=== PATIENT | male | born 1955 | race Caucasian/White ===

== ENCOUNTER 2016-07-14 22:05 | Inpatient (IN) | payer MEDICAID, OTHER ==
[~2016-07-14] VITALS: Ht 180.3 cm; Wt 68.4 kg
[2016-07-14 21:59] VITALS: BP 143/84
[2016-07-14] MEDS ORDERED: ANTACID SUSP 30 ML UDC (MYLANTA) PO PRN (23:15)
[2016-07-14] MEDS ORDERED: POLYETHYLENE GLYCOL 17 GM (MIRALAX) PACK PO PRN (23:15)
[2016-07-14] MEDS ORDERED: CALCIUM CARBONATE 500 MG (TUMS) TAB.CHEW PO PRN (23:15)
[2016-07-14] MEDS ORDERED: ONDANSETRON 4 MG (ZOFRAN) ORAL DISSOLVE TAB PO PRN (23:30)
[2016-07-14] MEDS ORDERED: CYCLOBENZAPRINE 10 MG (FLEXERIL) TAB PO PRN (23:30)
[2016-07-14] MEDS ORDERED: TEMAZEPAM 15 MG (RESTORIL) CAP PO PRN (23:30)
[2016-07-14] MEDS ORDERED: oxyCODONE/APAP 5/325MG (PERCOCET 5) TABLET PO PRN (23:30)
[2016-07-14] MEDS ORDERED: ACET/BUTAL/CAFF (FIORICET) TAB PO PRN (23:30)
[2016-07-14] MEDS ORDERED: ALPRAZolam 0.5 MG (XANAX) TAB PO PRN (23:30)
[2016-07-15] MEDS: FERROUS SULF 325 MG (IRON) TAB PO SCH ×3 (06:06→19:02)
[2016-07-15 06:16] VITALS: BP 117/75
[2016-07-15] MEDS: POLYETHYLENE GLYCOL 17 GM (MIRALAX) PACK PO SCH (09:00)
[2016-07-15] MEDS ORDERED: TAMSULOSIN 0.4 MG (FLOMAX) CAP PO ONE (09:00)
[2016-07-15] MEDS: DOCUSATE SODIUM 100 MG (COLACE) CAP PO SCH (09:24)
[2016-07-15] MEDS: CLOPIDOGREL 75 MG (PLAVIX) TABLET PO SCH (09:24)
[2016-07-15] MEDS: OMEGA 3 (FISH OIL) 1000 MG CAP PO SCH (09:25)
[2016-07-15] MEDS: FAMOTIDINE 20 MG (PEPCID) TABLET PO SCH ×2 (09:25→21:18)
[2016-07-15] MEDS: MAGNESIUM OXIDE (MAG-OX)400 MG TAB PO SCH (09:25)
[2016-07-15] MEDS: CEFDINIR 300 MG (OMNICEF) CAP PO SCH ×2 (09:25→21:17)
[2016-07-15] MEDS: GABAPENTIN 300 MG (NEURONTIN) CAP PO SCH ×3 (09:26→21:18)
[2016-07-15] MEDS: CARVEDILOL 6.25 MG (COREG) TAB PO SCH ×2 (09:26→21:18)
[2016-07-15] MEDS: LORATADINE (CLARITIN) 10 MG TAB PO SCH (09:26)
[2016-07-15] MEDS: LACTOBACILLUS Acidoph/Bulgar (LACTINEX/FLORANEX) TAB PO SCH ×2 (09:26→21:18)
[2016-07-15] MEDS ORDERED: ALFUZOSIN HCL 10 MG TAB (UROXATRAL) PO NR (09:38)
--- NOTE | 2016-07-15 12:54 | Physical Therapy Evaluation ---
PT Evaluation-General Medical Diagnosis Admission Date Jul 14, 2016 at 22:05 Medical Diagnosis: UTI Onset Date: Jul 06, 2016 Therapy Diagnosis Therapy Diagnosis: impaired mobility, weakness, balance, endurance Height/Weight Height (Feet): 5 Height (Inches): 11.00 Weight (Pounds): 151 Weight (Ounces): 8.0 Precautions Precautions/Isolations: Fall Prevention, Standard Precautions Referral Physician: Jorge Luis Reason for Referral: Evaluation/Treatment Medical History Pertinent Medical History: CVA, GERD Additional Medical History sepsis, UTI, hyponatremia, history of LV thrombus, acute kidney injury, leukopenia, thrombocytopenia, chronic anemia, cardiac artery stenosis, hyperlipidemia, BPH Current History admitted initially to hospital with pain in neck and suprapubic region and fever. Was found to have UTI, sepsis. Reviewed History: Yes Social History Patient states that when he discharges from here he will be going to an assisted living facility. He states he has a wheelchair, hemiwalker, and AFO. Prior/Core FIM Prior Level of Function Functional [place] Measure 0=Not Assessed/NA 4=Minimal Assistance 1=Total Assistance 5=Supervision or Setup 2=Maximal Assistance 6=Modified [place] 3=Moderate Assistance 7=Complete [place] Bed Mobility: 6 Transfers (B,C,W/C) (FIM): 6 Gait: 6 PT Evaluation-Current Subjective Patient in bed pre tx, agrees to PT, will need to get dressed and somewhat groomed this morning. Has no complaints of pain. Pt/Family Goals to be independent at home Objective Patient Orientation: Normal For Age ROM/Strength ROM Lower Extremities WNL Strenght Lower Extremities WNL for right lower extremity, left lower extremity 2/5 gross Integumentary/Posture Bowel Incontinence: No Bladder Incontinence: No Neuromuscular (Tone, Coordination, Reflexes) coordination and tone decreased on the left side Sensory Vision: Functional Hearing: Functional Sensation Right Lower Extremit: Intact Sensation Left Lower Extremity: Intact Sensation Lower Extremities Patient has intact light touch sensation but is diminished on the left side, he states his whole left side of body tingles Transfers Functional [place] Measure 0=Not Assessed/NA 4=Minimal Assistance 1=Total Assistance 5=Supervision or Setup 2=Maximal Assistance 6=Modified [place] 3=Moderate Assistance 7=Complete IndependenceIRFPAI Quality Coding Scale 6 Independent with activity with or without an assistive device 5 Patient requires set up or clean up by helper. Patient completes activity by themselves 4 Supervision or touching assist (CGA). [place] provide cues , steadying assist 3 The helper provides less than half the effort to complete the activity 2 The helper provides more than half the effort to complete the activity 1 Dependent. The helper does all the effort to complete an activity 7 Patient refused to complete or attempt activity 9 The patient did not perform the activity before the current illness or injury 88 Not attempted due to Medical conditions or safety concerns Transfers (B, C, W/C) (FIM): 4 Scootin Rollin Roll Left to Right (QC): 4 Supine to/from Sit: 5 Sit to/from Stand: 4 bed t/f WC(FIM only if WC use): 4 Sit to Lying (QC): 4 Lying to Sitting/Side of Bed(Q: 4 Sit to Stand (QC): 4 Chair/Twg-dp-Uhygh Xfer(QC): 4 Car Transfer (QC): 88 Patient performs bed mobility with standby assist, he needs extra time and effort but he did not need any assist. Patient performs a sit to stand and stand pivot transfer with CGA, he needs cues for safety and hand placement. Gait Does the Patient Walk?: Yes Mode of Locomotion: Walk Anticipated Mode of Locomotion: Walk Gait (FIM): 1 Walk 10 feet (QC): 4 Walk 50 ft with 2 Turns(QC): 88 Walk 150 ft (QC): 88 Walking 10ft/uneven surface-QC: 88 Distance: 30' Gait Level of Assist: 4 (CGA) Gait Persons Needed: 1 Gait Assistive Device: Walker Donnie Comments/Gait Description Patient can ambulate 30' with a hemiwalker with CGA. He has uncoordinated movement of the left lower extremity. He cannot ambulate over uneven surfaces at this time. He uses a left AFO and has a steppage gait. Wheelchair Training Does the Pt Use a Wheelchair?: Yes Wheelchair (FIM): 6 Distance: 200' Wheel 50 ft with 2 turns (QC): 6 Wheel 150 ft (QC): 6 Type of Wheelchair: Manual mod I with wheelchair mobility using his right arm and leg Stairs Stairs (FIM): 1 #of Steps: 1 Level of Assist: 4 1 Step (curb) (QC): 3 4 Steps (QC): 88 12 Steps (QC): 88 used a hemiwalker, min assist, cues for safety and foot placement Balance Sitting Static: Normal Sitting Dynamic: Normal Standing Static: Fair Standing Dynamic: Poor Picking up an Object (QC): 88 Assessment/Needs Patient has left hemiparesis, debility, impaired mobility and ambulation. Rehab Potential: Fair PT Short Term Goals Short Term Goals Time Frame: Jul 22, 2016 Transfers (B,C,W/C) (FIM): 5 Gait (FIM): 2 Gait Distance Comment: 70' Gait Level of Assist: 5 Gait Assistive Device: Cane Large Base Quad PT Logistics Specialist Goals Logistics Specialist Goals PT Logistics Specialist Goals Time Frame: Aug 05, 2016 Transfers (B,C,W/C) (FIM): 6 Sit to Lying (QC): 6 Lying-Sitting on Side/Bed(QC): 6 Sit to Stand (QC): 6 Rollin Roll Left to Right (QC): 6 Chair/Ykq-kh-Mmbbw Xfer(QC): 6 Car Transfer (QC): 4 Gait (FIM): 6 Distance: 150' Walk 10 feet (QC): 6 Walk 10ft-Uneven Surface(QC): 6 Walk 50ft with 2 Turns (QC): 6 Walk 150 ft (QC): 6 Gait Assistive Device: Cane Large Base Quad Stairs (FIM): 2 # of Steps: 4 1 Step (curb) (QC): 4 4 Steps (QC): 4 12 Steps (QC): 88 Stairs Level Of Assist: 5 Picking up an Object (QC): 5 PT Plan Problem List Problem List: Activity Tolerance, Functional Strength, Safety, Balance, Gait, Transfer, Bed Mobility Treatment/Plan Treatment Plan: Continue Plan of Care Treatment Plan: Bed Mobility, Education, Functional Activity [place], Functional Strength, Group Therapy, Gait, Safety, Therapeutic Exercise, Transfers Treatment Duration: Aug 05, 2016 # of days/week 5-6 Visits Per Week: 10-11 Minutes/Day (M-F): 60-90 Minutes/Day (Sat/Bryant): 15-30 Pt/Family Agrees w/Plan: Yes Safety Risks/Education Patient Education: Gait Training, Transfer Techniques, Steps, Correct Positioning, W/C Management, Safety Issues Teaching Recipient: Patient Teaching Methods: Demonstration, Discussion Response to Teaching: Reinforcement Needed Discharge Recommendations Plan Patient will perform bed mobility and transfers, balance and endurance training , functional strengthening, stair training, gait training, education, to improve functional mobility and independence at home. Therapy D/C Recommendations: Assisted Living, Home w/ Family Support Time/GCodes Time In: 800 Time Out: 900 Total Billed Treatment Time: 60 Total Billed Treatment 1 visit EVL 15 min GT 15 min FA 15 min WCH 15 min ADONAY MULLEN PT Jul 15, 2016 12:54
--- NOTE | 2016-07-15 14:06 | Occupational Therapy Eval ---
OT Evaluation-General/PLF Medical Diagnosis Admission Date Jul 14, 2016 at 22:05 Medical Diagnosis: UTI Onset Date: Jul 06, 2016 Therapy Diagnosis Therapy Diagnosis: Impaired self care skills Height/Weight Height (Feet): 5 Height (Inches): 11.00 Weight (Pounds): 151 Weight (Ounces): 8.0 Precautions Precautions/Isolations: Fall Prevention, Standard Precautions Referral Physician: Jorge Luis Medical History Pertinent Medical History: CVA, GERD Additional Medical History sepsis, UTI, hyponatremia, history of LV thrombus, acute kidney injury, leukopenia, thrombocytopenia, chronic anemia, cardiac artery stenosis, hyperlipidemia, BPH Reviewed History: Yes Social History Home: Single Level Current Living Status: Friend Entry Into Home: Level Entry ADL-Prior Level of Function ADL PLOF Comments Pt states he was receiving assistance with bathing, but was mostly independent with other BADLs at w/c level. Uses w/c and ro-walker for mobility. Pt had a CVA in January and was still going to outpatient therapy. Pt states he was recently working on picking up/releasing small blocks with left hand. Wears resting hand splint at night and does have splint here. Also wears AFO on left. Pt states he was able to complete simple kitchen tasks and do the laundry. DME/Equipment: Bath Chair, Grab Bars, Shower, Tall Toilet Drive Self: No OT Current Status Subjective Pt agrees to therapy this am, has no c/o pain. Pt states he feels better after taking a shower. Mental Status/Objective Patient Orientation: Person, Place, Situation Current Glasses/Contacts: Yes Hearing Aids: Yes (right) Dentures/Partials: Yes Hand Dominance: Right Upper Extremity ROM Right UE WFL Left UE: minimal shoulder, elbow, and finger movements. Pt has decreased PROM secondary to pain. Unable to fully flex/extend elbow. Supination to neutral only. Pt has impaired finger extension. Pt has winging of left scapula Upper Extremity Coordination Intact right UE. Impaired left UE Upper Extremity Sensation Pt reports tingling of left UE Upper Extremity Strength Right UE WFL Impaired Left UE ADL-Treatment ADL-Current Pt transferred w/c to shower bench with minimal assistance using grab bar for balance and safety. Pt doffed jacket and shirt with moderate assistance. Doff pants with moderate assistance. Pt requires maximal assistance to doff shoes and socks. Seated bathing completed using hand held shower. Pt washed chest, abdomen, left arm, bilateral upper legs, and levon area with SBA. Assist required for lower legs/feet and buttocks. Don pullover shirt with moderate assistance. Pt uses good technique for task. Pt required assist to start underwear and pants over feet and pull up to knees. Sit to stand with minimal assistance. Pt able to perform pant hike on right, but requires assist for left. Pt required assist to don socks, shoes, and left AFO. Increased time required for ADL tasks. Pt combed hair with set up. Pt requests to return to bed after session. Transfer w/c to EOB with minimal assistance using ro- walker. Sit to supine with assist for left LE. Pt in bed with needs met after session. Functional [place] Measure 0=Not Assessed/NA 4=Minimal Assistance 1=Total Assistance 5=Supervision or Setup 2=Maximal Assistance 6=Modified [place] 3=Moderate Assistance 7=Complete IndependenceIRFPAI Quality Coding Scale 6 Independent with activity with or without an assistive device 5 Patient requires set up or clean up by helper. Patient completes activity by themselves 4 Supervision or touching assist (CGA). [place] provide cues , steadying assist 3 The helper provides less than half the effort to complete the activity 2 The helper provides more than half the effort to complete the activity 1 Dependent. The helper does all the effort to complete an activity 7 Patient refused to complete or attempt activity 9 The patient did not perform the activity before the current illness or injury 88 Not attempted due to Medical conditions or safety concerns Bathing (FIM): 3 Shower/Bathe Self (QC): 3 Upper Body Dressing (FIM): 3 Upper Body Dressing (QC): 3 Lower Body Dressing (FIM): 2 Lower Body Dressing (QC): 2 On/Off Footwear (QC): 1 Shower Transfer (FIM): 4 Education OT Patient Education: Rehab process Teaching Recipient: Patient Teaching Methods: Discussion Response to Teaching: Verbalize Understanding OT Short Term Goals Short Term Goals Time Frame: Jul 22, 2016 Bathing(FIM): 4 Upper Body Dressing(FIM): 4 Lower Body Dressing(FIM): 3 Toileting(FIM): 4 Toilet/Commode Transfer(FIM): 4 Shower Transfer(FIM): 4 (CGA) Additional Short Term Goals: 1-Demonstrate ADL Tasks, 2-Verbalize Understanding , 3-ImproveStrength/[place] 1=Demonstrate adherence to instructed precautions during ADL tasks. 2=Patient will verbalize/demonstrate understanding of assistive devices/ modifications for ADL. 3=Patient will improve strength/tolerance for activity to enable patient to perform ADL's. OT Long-Term Goals Long-Term Goals Time Frame: Aug 05, 2016 Eating (FIM): 6 Eating (QC): 6 Oral Hygiene (QC): 6 Grooming(FIM): 5 Bathing(FIM): 4 Shower/Bathe Self (QC): 4 Upper Body Dressing(FIM): 6 Upper Body Dressing (QC): 6 Lower Body Dressing(FIM): 5 Lower Body Dressing (QC): 5 On/Off Footwear (QC): 4 Toileting Hygiene (QC): 5 Toilet/Commode Transfer(FIM): 5 Toilet/Commode Transfer (QC): 5 Shower Transfer(FIM): 5 Additional Goals: 1-Demonstrate ADL Tasks, 2-Verbalize Understanding, 3- ImproveStrength/Madalyn 1=Demonstrate adherence to instructed precautions during ADL tasks. 2=Patient will verbalize/demonstrate understanding of assistive devices/ modifications for ADL. 3=Patient will improve strength/tolerance for activity to enable patient to perform ADL's. Goals established to promote increased functional independence and allow safe discharge. OT Education/Plan Problem List/Assessment Assessment: Decreased Activ Tolerance, Decreased UE Strength, Dependent Transfers, Impaired Coordination, Impaired Funct Balance, Impaired I ADL's, Impaired Self-Care Skills, Restricted Funct UE ROM Pt to benefit from skilled OT intervention for ADL training, transfers, ROM/ strengthening, and safety education to maximize level of independence and allow safe discharge. Discharge Recommendations Plan/Recommendations: Continue POC Treatment Plan/Plan of Care Treatment,Training & Education: Yes Patient would benefit from OT for education, treatment and training to promote independence in ADL's, mobility, safety and/or upper extremity function for ADL' s. Plan of Care: ADL Retraining, Functional Mobility, Group Exercise/Act as Ind, Orthotic Fitting/Training, UE Funct Exercise/Act, UE Neuromus Re-Ed/Coord Treatment Duration: Aug 05, 2016 # of days/week 5-6 Minutes/Day (M-F): 60-90 Minutes/Day (Sat/Bryant): PRN Agreement: Yes Rehab Potential: Fair Time/GCodes Start Time: 11:00 Stop Time: 12:10 Total Time Billed (hr/min): 70 Billed Treatment Time 1 visit, EVL(15minutes), ADLx4(55minutes) RASHIDA ORTIZ OT Jul 15, 2016 14:06
--- NOTE | 2016-07-15 14:16 | ST Cognitive Linguistic Eval ---
Speech Evaluation-General Medical Diagnosis UTI Onset Date: Jul 06, 2016 Therapy Diagnosis Therapy Diagnosis: Mild Dysarthria Precautions Precautions/Isolations: Fall Prevention, Standard Precautions Referral Referring Physician: Dr. Jeremiah Kang Reason for Referral: Evaluation/Treatment Cognitive, Speech, Language Evaluation Medical History Pertinent Medical History: CVA, GERD Reviewed History: Yes Speech PLF-Current Status Prior Level of Function The patient stated he has experienced slurring of speech since his CVA in January 2016. The patient denied additional cognitive, speech, or language deficits prior to or throughout his recent hospitalizations. Subjective The patient was recently admitted to [facility] with a diagnosis of an UTI. The patient greeted the clinician appropriately and agreed to participate in the cognitive evaluation on this date. Language Eval: Auditory Comprehends Simple Yes/No Ques: Functional Indent/Objects Multiple [place]: Functional Ident/Pics in Multiple [place]: Functional Follows 1-Step Commands: Functional Follows Complex Directions: Functional Follows General Conversations: Functional Language Eval: Verbal Language Completes Spontaneous Greeting: Functional Produces Auto, Serial Info: Functional Imitates Simple Words/Phrases: Functional Word Finding: Functional Requests Basic Needs: Functional States Basic Personal Info: Functional Expresses Complex Ideas: Functional Cognitive Patient Orientation The patient was alert and oriented to place, date, day of week, month, and year. Objective Cognitive Domain Attention: Mild Memory: WNL Problem Solving: Mild Objective Oral Motor/Speech Production The patient demonstrated reduced lingual and labial (left) range of motion and strength. Mildly imprecise articulation and mildly reduced rate of speech. The patient remained 100% intelligible in known contexts and 80% intelligible in unknown contexts. Impression The patient demonstrated mildly impaired cognitive abilities with decreased response time and mild dysarthria (most consistent with flaccid type). Communication/Social Cognition Comprehension: 5 Expression: 4 Social Interaction: 6 Problem Solvin Memory: 5 Speech Patient Assess Expression of Ideas/Wants: Expression (4) Understanding [place] Content: Understands (4) Brief Interview-Mental Status: Yes Repetition of Three Words: Three (3) Temporal Orientation: Year: Correct (3) Temporal Orientation: Month: Accurate within 5 days(2) Temporal Orientation: Day: Correct (1) Recall : Wear: Yes, no cue required (2) Recall : Color: Yes, no cue required (2) Recall : Bed: Yes, no cue required (2) Speech Short Term Goals Short Term Goals Short Term Goals 1. The patient will demonstrate oral motor exercises with 90% accuracy, independently. 2. The patient will demonstrate 90% intelligible with functional phrases, independently. Time Frame-STG: Two Weeks Speech Desktop Support Consultant Goals [facility] Goals 1. The patient will demonstrate improved expressive communication for increased safety and function with ADL's. Time Frame: Four Weeks Comprehension: 6 Expression: 5 Social Interaction: 5 Problem Solvin Memory: 5 Speech-Plan Treatment Plan Speech Therapy Treatment Plan: Continue Plan of Care Treatment Duration: Aug 12, 2016 # of days/week Four to Five Visits Per Week: Four to Five Rehab Potential: Fair Safety Risks/Education Teaching Recipient: Patient Teaching Methods: Discussion Response to Teaching: Verbalize Understanding, Reinforcement Needed Education Topics Provided: Plan of Care Time Speech Therapy Time In: 10:30 Speech Therapy Time Out: 10:45 Total Billed Time: 15 Billed Treatment Time 1, MARI BAUTISTA Jul 15, 2016 14:16
[2016-07-15] MEDS ORDERED: ONDN4T PO (14:37)
[2016-07-15] MEDS ORDERED: LACT1CAP39 PO (14:37)
[2016-07-15] MEDS ORDERED: ACET-2267 PO (14:37)
[2016-07-15] MEDS ORDERED: MAGN400T6 PO (14:37)
[2016-07-15] MEDS ORDERED: ATOR40TA70 PO (14:37)
[2016-07-15] MEDS ORDERED: POLY17PO6 PO (14:37)
[2016-07-15] MEDS ORDERED: CLOP75TA69 PO (14:37)
[2016-07-15] MEDS ORDERED: CARV6.25 PO (14:37)
[2016-07-15] MEDS ORDERED: GABA-488 PO (14:37)
[2016-07-15] MEDS ORDERED: DOCU-143 PO (14:37)
[2016-07-15] MEDS ORDERED: OMG1KC PO (14:37)
[2016-07-15] MEDS ORDERED: CETI10TA20 PO (14:37)
[2016-07-15] MEDS ORDERED: FERR-74 PO (14:37)
[2016-07-15] MEDS ORDERED: WARF-48 PO (14:37)
[2016-07-15] MEDS ORDERED: TAMS0.4C98 PO (14:37)
[2016-07-15] MEDS ORDERED: ALPR0.5T PO (14:37)
[2016-07-15] MEDS ORDERED: CEFD300C3 PO (14:37)
[2016-07-15] MEDS ORDERED: BUTA1TAB9 PO (14:37)
[2016-07-15] MEDS ORDERED: TEMA15CA PO (14:37)
[2016-07-15] MEDS ORDERED: MAG355OR17 PO (14:37)
[2016-07-15] MEDS ORDERED: [UNRECOGNIZED DRUG - CODE] PO (14:37)
[2016-07-15] MEDS ORDERED: MELA3TAB PO (14:37)
[2016-07-15] MEDS ORDERED: OXYC-197 PO (14:37)
[2016-07-15] MEDS ORDERED: CYCL10TA9 PO (14:37)
[2016-07-15] MEDS ORDERED: FAMO20TA3 PO (14:37)
[2016-07-15] MEDS: ACETAMINOPHEN 500 MG TAB (TYLENOL) PO PRN ×2 (14:48→23:31)
--- NOTE | 2016-07-15 14:54 | Therapy Group Daily Note ---
Therapy Daily Group Note Patient Education Topic Other List Below (transfer techniques, transfer equipment, utilizing theraband) Exercises LE Seated Exercise, UE Exercise Other/Notes Pt. attended group PT OT session. Pt. came by w/c and needed assist. Pt. was very friendly, big smile and joined in all conversation well. Education topic focused on transfer techniques including sup to sit to stand as well as rolling and utilizing TRF equipment. Pt. was assisted to use theraband for Upper and lower extremity seated exercises. Pt. added to conversation about fears and how to conquer them. Pt. was assisted to room after group Start Time: 13:00 Stop Time: 14:20 Total Billed Treatment Time: 80 Total Billed Treatment 1,GRP TRAVON IBANEZ POLICE AND FIRE DISPATCHER Jul 15, 2016 14:53
[2016-07-15 17:34] LABS: PROTHROMBIN TIME PATIENT 22.5 SEC (12.2-14.7)
[2016-07-15 17:44] LABS: MEAN PLATELET VOLUME 10.1 FL (7.4-10.4); RED BLOOD COUNT 3.75 10^6/uL (4.35-5.85); WHITE BLOOD COUNT 3.1 10^3/uL (4.3-11.0)
[2016-07-15] MEDS: warFARin 5 MG (COUMADIN) TAB PO SCH (17:49)
[2016-07-15 18:35] VITALS: BP 126/75
[2016-07-15] MEDS: ATORVASTATIN 40 MG (LIPITOR) TABLET PO SCH (21:18)
[2016-07-15] MEDS: MELATONIN 3 MG TABLET PO SCH (21:20)
[2016-07-16] MEDS: FERROUS SULF 325 MG (IRON) TAB PO SCH ×2 (06:08→18:30)
[2016-07-16 06:11] VITALS: BP 125/70
[2016-07-16 06:33] LABS: PROTHROMBIN TIME PATIENT 22.5 SEC (12.2-14.7)
[2016-07-16 06:43] LABS: ALBUMIN 3.6 G/DL (3.2-4.5); BILIRUBIN,TOTAL 0.3 MG/DL (0.1-1.0); CALCIUM 9.8 MG/DL (8.5-10.1); CREATININE SERUM 1.52 MG/DL (0.60-1.30); TOTAL PROTEIN 6.6 G/DL (6.4-8.2)
[2016-07-16] MEDS: CEFDINIR 300 MG (OMNICEF) CAP PO SCH ×2 (08:42→21:06)
[2016-07-16] MEDS: DOCUSATE SODIUM 100 MG (COLACE) CAP PO SCH (08:42)
[2016-07-16] MEDS: FAMOTIDINE 20 MG (PEPCID) TABLET PO SCH ×2 (08:42→21:06)
[2016-07-16] MEDS: GABAPENTIN 300 MG (NEURONTIN) CAP PO SCH ×3 (08:42→21:06)
[2016-07-16] MEDS: LACTOBACILLUS Acidoph/Bulgar (LACTINEX/FLORANEX) TAB PO SCH ×2 (08:42→21:06)
[2016-07-16] MEDS: OMEGA 3 (FISH OIL) 1000 MG CAP PO SCH (08:42)
[2016-07-16] MEDS: MAGNESIUM OXIDE (MAG-OX)400 MG TAB PO SCH (08:42)
[2016-07-16] MEDS: LORATADINE (CLARITIN) 10 MG TAB PO SCH (08:42)
[2016-07-16] MEDS: CARVEDILOL 6.25 MG (COREG) TAB PO SCH ×2 (08:42→21:06)
[2016-07-16] MEDS: CLOPIDOGREL 75 MG (PLAVIX) TABLET PO SCH (08:42)
[2016-07-16] MEDS: POLYETHYLENE GLYCOL 17 GM (MIRALAX) PACK PO SCH (08:42)
--- NOTE | 2016-07-16 08:43 | Consultation ---
History of Present Illness History of Present Illness Patient Consulted On(bhupinder/time) 07/16/16 08:39 Date of Admission History of Present Illness patient came from [facility] in [place]. Patient is weak. Patient previously had a stroke on the left side. Patient discharge with sepsis, UTI, hyponatremia. History of LV thrombus. Acute kidney injury Allergies and Home Medications Allergies Coded Allergies: No Known Allergies (Verified Allergy, Unknown, 07/14/16) Home Medications Acetaminophen 500 Mg Tablet 1,000 MG PO Q8H PRN PRN PAIN/FEVER (Reported) Alprazolam 0.5 Mg Tablet 0.5 MG PO HS PRN PRN SLEEP (Reported) Atorvastatin Calcium 40 Mg Tablet 40 MG PO HS (Reported) Butalb/Acetaminophen/Caffeine 1 Each Tablet 1 TAB PO Q4H PRN PRN PAIN (Reported ) Calcium Carbonate 300 Mg Tab.chew 750 MG PO Q2H PRN PRN HEARTBURN (Reported) Carvedilol 6.25 Mg Tablet 6.25 MG PO BID (Reported) Cefdinir 300 Mg Capsule 300 MG PO BID (Reported) CONTINUE UNTIL 07-20-16 Cetirizine HCl 10 Mg Tablet 10 MG PO DAILY (Reported) Clopidogrel Bisulfate 75 Mg Tablet 75 MG PO DAILY (Reported) Cyclobenzaprine HCl 10 Mg Tablet 10 MG PO BID PRN PRN MUSCLE SPASMS (Reported) Docusate Sodium 100 Mg Capsule 100 MG PO DAILY (Reported) Famotidine 20 Mg Tablet 20 MG PO BID (Reported) Ferrous Sulfate 325 Mg Tablet 325 MG PO BID WITH MEALS (Reported) Gabapentin 300 Mg Capsule 300 MG PO TID (Reported) Lactobacillus Rhamnosus GG 1 Each Capsule 1 CAP PO BID (Reported) Mag Hydrox/Al Hydrox/Simeth 355 Ml Oral.susp 30 ML PO Q4H PRN PRN INDIGESTION ( Reported) Magnesium Oxide 400 Mg Tablet 800 MG PO DAILY (Reported) Melatonin 3 Mg Tablet 6 MG PO HS (Reported) [place] 3 Polyunsat Fatty Acids 1,000 Mg Cap 1,000 MG PO DAILY (Reported) Ondansetron HCl 4 Mg Tab 2 MG PO HS PRN PRN NAUSEA (Reported) Oxycodone HCl/Acetaminophen 1 Each Tablet 1 TAB PO Q6H PRN PRN PAIN (Reported) Polyethylene Glycol 3350 17 Gm Powd.pack 17 GM PO DAILY PRN PRN CONSTIPATION ( Reported) Polyethylene Glycol 3350 17 Gm Powd.pack 17 GM PO DAILY (Reported) Tamsulosin HCl 0.4 Mg Cap 0.4 MG PO DAILY (Reported) Temazepam 15 Mg Capsule 15 MG PO HS PRN PRN SLEEP (Reported) Warfarin Sodium 5 Mg Tablet 5 MG PO 1800 (Reported) Past Jmegiab-Ypevon-Lyvuix Hx Patient Social History Alcohol Use: Denies Use Recreational Drug Use: No Smoking Status: Former Smoker Type Used: Cigarettes Recent Foreign Travel: No Contact w/Someone Who Travel: No Recent Infectious Disease Expo: No Recent Hopitalizations: Yes Physical Abuse Screen: No Sexual Abuse: No Immunizations Up To Date Date of Influenza Vaccine: Mar 23, 2016 Seasonal Allergies Seasonal Allergies: No Genitourinary Genitourinary Disorders: UTI-Chronic Blood Transfusions Adverse Reaction to a Blood Tr: No Family Medical History Family Medial History: Colon cancer 19 FATHER FH: multiple myeloma FH: multiple sclerosis Review of Systems-General Constitutional: malaise weakness EENTM: no symptoms reported Respiratory: no symptoms reported Cardiovascular: other (stent in heart, carotid stent) Gastrointestinal: no symptoms reported Genitourinary: no symptoms reported Physical Exam-General Problems Physical Exam Vital Signs Vital Sign - Last 12Hours 07/14/16 07/14/16 21:59 22:34 Temp 96.2 Pulse 74 Resp 16 B/P 143/84 Pulse Ox 96 O2 Delivery Room Air Capillary Refill : General Appearance: other (lleft side stroke) thin Eyes: Bilateral Eye Normal Inspection HEENT: normal ENT inspection Neck: full range of motion Respiratory: chest non-tender normal breath sounds no respiratory distress no accessory muscle use Cardiovascular: regular rate, rhythm Gastrointestinal: non tender soft Assessment/Plan Assessment/Plan Admission Diagnosis/Plan weakness. Previous stroke. Sepsis. UTI. Hyponatremia. History of LV thrombus. Acute kidney injury Clinical Quality Measures DVT/VTE Risk/Contraindication: Risk Factor Score Per Nursin RFS Level Per Nursing on Admit: 4+=Very High VAIBHAV ZAIDI DO Jul 16, 2016 08:43
--- NOTE | 2016-07-16 09:01 | Physical Therapy Daily Note ---
PT Daily Note-Current Subjective Patient in bed sleeping pre tx, agrees to PT upon waking, needs to get dressed. Patient is pretty lethargic and unsteady this morning. Patient has no complaints of pain but states it feels like he may have sprained his left ankle. Pain Numeric Pain Scale: 0-No Pain Appearance Patient in wheelchair post tx, has OT right after PT. Mental Status Patient Orientation: Normal For Age Transfers Functional [place] Measure 0=Not Assessed/NA 4=Minimal Assistance 1=Total Assistance 5=Supervision or Setup 2=Maximal Assistance 6=Modified [place] 3=Moderate Assistance 7=Complete IndependenceIRFPAI Quality Coding Scale 6 Independent with activity with or without an assistive device 5 Patient requires set up or clean up by helper. Patient completes activity by themselves 4 Supervision or touching assist (CGA). [place] provide cues , steadying assist 3 The helper provides less than half the effort to complete the activity 2 The helper provides more than half the effort to complete the activity 1 Dependent. The helper does all the effort to complete an activity 7 Patient refused to complete or attempt activity 9 The patient did not perform the activity before the current illness or injury 88 Not attempted due to Medical conditions or safety concerns Transfers (B, C, W/C) (FIM): 4 Scootin Rollin Supine to/from Sit: 5 Sit to/from Stand: 4 (min A) Bed to/from Chair: 4 Patient needs min assist for sit to stand and for transfer, will often leg go of hemiwalker too soon when performing transfers Gait Training Gait (FIM): 1 Distance: 30'x2, 15' Gait Level of Assist: 4 Gait Persons Needed: 1 Gait Assistive Device: Walker Donnie Patient needs min assist to maintain balance, uses left AFO, uses step to pattern. Exercises NuStep Minutes: 8 NuStep Workload: 4 Treatments ambulation, functional strengthening, bed mobility and transfer training, patient was dressed Assessment Current Status: Poor Progress Patient had more trouble with balance, especially sitting at the edge of the bed , probably due to being lethargic after just waking up PT Short Term Goals Short Term Goals Time Frame: Jul 22, 2016 Gait (FIM): 2 Gait Distance Comment: 70' Gait Level of Assist: 5 Gait Assistive Device: Cane Large Base Quad Wheelchair Distance: 200' PT Dry House Worker Goals Snf Goals PT Dry House Worker Goals Time Frame: Aug 05, 2016 Transfers (B,C,W/C) (FIM): 6 Sit to Lying (QC): 6 Lying-Sitting on Side/Bed(QC): 6 Sit to Stand (QC): 6 Rollin Roll Left to Right (QC): 6 Chair/Iiv-ye-Hxazt Xfer(QC): 6 Car Transfer (QC): 4 Gait (FIM): 6 Distance: 150' Walk 10 feet (QC): 6 Walk 10ft-Uneven Surface(QC): 6 Walk 50ft with 2 Turns (QC): 6 Walk 150 ft (QC): 6 Gait Assistive Device: Cane Large Base Quad Stairs (FIM): 2 # of Steps: 4 1 Step (curb) (QC): 4 4 Steps (QC): 4 12 Steps (QC): 88 Stairs Level Of Assist: 5 Picking up an Object (QC): 5 PT Plan Problem List Problem List: Activity Tolerance, Functional Strength, Safety, Balance, Gait, Transfer, Bed Mobility, ROM Treatment/Plan Treatment Plan: Continue Plan of Care Treatment Plan: Bed Mobility, Education, Functional Activity Madalyn, Functional Strength, Group Therapy, Gait, Safety, Therapeutic Exercise, Transfers Treatment Duration: Aug 05, 2016 Visits Per Week: 10-11 Minutes/Day (M-F): 60-90 Minutes/Day (Sat/Bryant): 15-30 Safety Risks/Education Patient Education: Gait Training, Transfer Techniques, Safety Issues Teaching Recipient: Patient Teaching Methods: Demonstration, Discussion Response to Teaching: Reinforcement Needed Time/GCodes Time In: 800 Time Out: 900 Total Billed Treatment Time: 60 Total Billed Treatment 1 visit FA 20 min EX 8 min GT 32 min ADONAY MULLEN PT Jul 16, 2016 09:01
--- NOTE | 2016-07-16 09:19 | HISTORY AND PHYSICAL ---
DATE OF ADMISSION: 07/14/2016 CHIEF COMPLAINT: Difficulty with walking. HISTORY OF THE PRESENT ILLNESS: The patient is a pleasant 60-year-old disabled male who sustained a right CVA with left hemiparesis with some dysarthria this past January who was at home with family in [place], [place] until he had stenting for a carotid artery disease and coronary artery disease at [facility] in [place], [place]. He subsequently went home and developed a UTI, was admitted, treated for sepsis. He has had a decline in functional independence after this. He reports having been modified independent for the most part at the wheelchair level at home. He has had some return of strength in the left leg, only trace in the left upper limb. He is right-hand dominant. He states his family lives nearby and helps him with meals. He indicates that although he has no current medical insurance, he has been approved for Social Security and hopes to soon have a Medicaid card. Currently he requires assistance for his ADLs and mobility skills. He is chronically anticoagulated and his INR today is 2 as of 07/15 and CBC shows H&H 9.8/30, platelet count 197,000, WBC 3.1 HIs is setup for eating and min assist for grooming Mod assist for Upperbody drsssing andmax assist for lower body dressing He is min assist for transfers bed mobility and ambulation with a hemiwalker PAST MEDICAL HISTORY: 1. Right CVA with left hemiparesis. 2. History of left ventricular thrombus. 3. UTI with sepsis. 4. Hyponatremia. 5. Leukopenia. 6. Thrombocytopenia. 7. Chronic anemia. 8. Carotid artery stenosis. 9. Coronary artery disease. 10. Hyperlipidemia. 11. BPH. 12. GERD. PAST SURGICAL HISTORY: As per above. FAMILY HISTORY: MS. ALLERGIES: No known allergies. . SOCIAL HISTORY: Essentially as per above. He lives in [place], [place] in a one-story house with family nearby.He had been Modified Independent from w/c level for mobility prior to this He has a left AFO REVIEW OF SYSTEMS: Ten-point review of systems significant for left-sided weakness. Denies any dysuria at this time. Slurred speech. The patient also reports night sweats 2 days ago at outside facility, none at this time. MEDICATIONS: 1. Melatonin 6 mg p.o. at bedtime. 2. Lipitor 40 mg p.o. at bedtime. 3. Coumadin 5 mg p.o. every evening. 4. Colace 100 mg p.o. daily. 5. Pepcid 20 mg p.o. b.i.d. 6. Gabapentin 300 mg p.o. t.i.d. 7. Lactinex 1 tablet p.o. b.i.d. 8. MiraLAX 17 grams p.o. daily. 9. Mag-Ox 800 mg p.o. daily. 10. Coreg 6.25 mg p.o. b.i.d. 11. Plavix 75 mg p.o. daily. 12. Loratadine 10 mg p.o. daily. 13. Fish oil 1000 mg p.o. daily. 14. Omnicef 300 mg p.o. b.i.d. 15. Ferrous sulfate 325 mg p.o. b.i.d. with meals. 16. Fioricet 1 tablet p.o. q.4 hours p.r.n. pain. 17. Zofran 4 mg p.o. q.4 hours p.r.n. nausea, vomiting. 18. Xanax 0.5 mg p.o. at bedtime p.r.n. insomnia. 19. Flexeril 10 mg p.o. b.i.d. p.r.n. muscle spasm. 20. Percocet 5/325, 1 tablet p.o. q.6 hours p.r.n. moderate pain. 21. Temazepam 15 mg p.o. at bedtime p.r.n. insomnia. 22. Tylenol 1000 mg p.o. q.6 h. p.r.n. pain. 23. Calcium carbonate 750 mg p.o. q.2 hours p.r.n. heartburn. 24. Mylanta 30 mL p.o. q.4 hours p.r.n. indigestion. 25. MiraLAX 17 grams p.o. daily p.r.n. constipation. PHYSICAL EXAMINATION: Physical examination is significant for a pleasant a male, appearing his stated age, alert and oriented no acute distress. VITAL SIGNS: He is afebrile. Pulse is 70, respirations 16, blood pressure 117/75, O2 sat 96% on room air. HEENT: He has mild dysarthria. Vision and hearing, grossly intact. No oral lesion is noted. NECK: Supple without mass. HEART: Regular rhythm. LUNGS: Clear. ABDOMEN: Soft, nontender. Bowel sounds present. EXTREMITIES: No lower leg edema. No calf tenderness. MUSCULOSKELETAL: The patient has functional passive range of motion of all 4 extremities. NEUROLOGIC: He has trace movement in the left upper limb, fairly flaccid. Left lower limb, 2+/5. Sensation is grossly intact to touch. Cognition mildly impaired but functional. Mild dysarthria He is able to follow commands is appropriate and alert and oriented and has situation awareness.Strength functional on rt IMPRESSION: 1. General debilitation secondary to UTI associated with sepsis, treated, continues on Omnicef. 2. Late effects of stroke with left hemiparesis and dysarthria. 3. History of left ventricular thrombus chronically coagulated, status post stents. 4. Coronary artery stents. 5. Carotid artery disease, status post stents, outside hospital. 6. GERD, on medications. 7. Anxiety, on medications. 8. Hyponatremia. We will recheck values. 9. Leukopenia associated with thrombocytopenia and chronic anemia and monitor trend. 10. Hyperlipidemia. 11. BPH. 12. Insomnia, on medication. PLAN: The patient will comprehensive program of inpatient rehabilitation of his general debilitation, taking into consideration his prior level of function, his prior stroke and other comorbidities. The patient will have PT/OT 90 minutes per day, each discipline, 5 days a week, for gait strengthening, conditioning, balance, ADLs, any patient/family/caregiver training necessary, any adaptive equipment training necessary. Speech therapy to see the patient 3 to 5 days a week 30 to 45 minutes per day for communication skills and specifically speech and dysarthria and cognitive issues. Rehabilitation nursing to assist with bowel, bladder, skin care, medication administration, pain management. medical services assistant to assist with discharge planning, community reentry. Obtain chemistry in a.m., daily INRs until INR stable. Consult Dr. Arizmendi for medical management of this out of town patient. Therapy with cardiac and fall precautions. ESTIMATED LENGTH OF STAY: Two weeks. PROGNOSIS: Rehab prognosis appears good for goal of discharging home with family with home health care, hopefully at modified independent to supervision for ADLs and mobility skills at the wheelchair level of function or better. DIET: Heart healthy. CODE STATUS: Full code. POST ADMISSION PHYSICIAN ASSESSMENT: The preadmission screen agrees with the post admission assessment that the patient is a good candidate for inpatient rehabilitation. He appears to be well motivated to participate in 3 hours of therapy a day. He should be able tolerate 3 hours of therapy a day from a medical standpoint. He should benefit from the 3 hours of therapy a day. He has a reasonable discharge plan, reasonable discharge rehabilitation goals and a supportive family. He has various comorbidities that need to be closely monitored with medications and treatments adjusted on a daily basis as needed. These include his history of BPH with recent UTI and sepsis. His chronic anticoagulation and history of coronary artery disease. BARRIERS TO DISCHARGE: Barriers to discharge for this patient who was reported to have been fairly modified independent to supervision for ADLs and mobility skills at the wheelchair level of function prior to this, are for him to be old to achieve those levels prior to discharge home with family and home health care, so as to lessen the burden of the caregivers. RISKS FOR THIS PATIENT: Include: 1. Poorly controlled INR. 2. Recurrent UTI. 3. Urinary retention. 4. Respiratory infection. 5. Aspiration. 6. DVT. 7. Pulmonary embolism. 8. Fall. 9. Fracture. 10. Recurrent stroke. Job ID: [id number] Dictated Date: 07/15/2016 18:15:10 Pharmacy Clerk Date: 07/16/2016 09:01:30/radha LUGO
--- NOTE | 2016-07-16 13:23 | Occupational Ther Daily Note ---
OT Current Status-Daily Note Subjective Pt sitting in w/c, agrees to treatment. Mental Status/Objective Functional [place] Measure 0=Not Assessed/NA 4=Minimal Assistance 1=Total Assistance 5=Supervision or Setup 2=Maximal Assistance 6=Modified [place] 3=Moderate Assistance 7=Complete [place] ADL-Treatment Pt declined bathing today, would like to finish getting dressed. Pt required maximal assistance to don pants. Assist required to start pants over feet and pull up to knees. Sit to stand with minimal assistance. Pt required assist to perform pant hike on left side. Pt required assist to don socks, shoes, and left AFO. To restroom via w/c. Pt demonstrated ability to perform transfer w/c<- > toilet with minimal assistance using grab bars. Grooming completed seated at sink. Pt washed face and combed hair with SBA. Increased time required for ADL tasks. Functional [place] Measure 0=Not Assessed/NA 4=Minimal Assistance 1=Total Assistance 5=Supervision or Setup 2=Maximal Assistance 6=Modified [place] 3=Moderate Assistance 7=Complete IndependenceIRFPAI Quality Coding Scale 6 Independent with activity with or without an assistive device 5 Patient requires set up or clean up by helper. Patient completes activity by themselves 4 Supervision or touching assist (CGA). [place] provide cues , steadying assist 3 The helper provides less than half the effort to complete the activity 2 The helper provides more than half the effort to complete the activity 1 Dependent. The helper does all the effort to complete an activity 7 Patient refused to complete or attempt activity 9 The patient did not perform the activity before the current illness or injury 88 Not attempted due to Medical conditions or safety concerns Eating (FIM): 5 (Pt reports assist to manage containers. Feeds self after setup.) Eating (QC): 5 Grooming (FIM): 5 Lower Body Dressing (FIM): 2 Toilet/Commode Transfer (FIM): 4 Toilet Transfer (QC): 3 Other Treatment Pt performed AROM right UE at all joints. PROM completed left UE. Pt has limited passive shoulder movements secondary to pain. Unable to achieve full elbow flexion or extension. Pt has supination to neutral and wrist extension to neutral. Pt's PIP and DIP joints are in flexed position and unable to extend secondary to tightness. Pt requests to return to bed after session. Transfer w/ c to bed with minimal assistance. Pt requires assist to lift bilateral LE into bed. Pt in bed with needs met after session. OT Short Term Goals Short Term Goals Time Frame: Jul 22, 2016 Bathing(FIM): 4 Upper Body Dressing(FIM): 4 Lower Body Dressing(FIM): 3 Toileting(FIM): 4 Toilet/Commode Transfer(FIM): 4 Shower Transfer(FIM): 4 (CGA) Additional Short Term Goals: 1-Demonstrate ADL Tasks, 2-Verbalize Understanding , 3-ImproveStrength/Madalyn 1=Demonstrate adherence to instructed precautions during ADL tasks. 2=Patient will verbalize/demonstrate understanding of assistive devices/ modifications for ADL. 3=Patient will improve strength/tolerance for activity to enable patient to perform ADL's. OT Care Home Goals Health Center Assistant Goals Time Frame: Aug 05, 2016 Eating (FIM): 6 Eating (QC): 6 Oral Hygiene (QC): 6 Grooming(FIM): 5 Bathing(FIM): 4 Shower/Bathe Self (QC): 4 Upper Body Dressing(FIM): 6 Upper Body Dressing (QC): 6 Lower Body Dressing(FIM): 5 Lower Body Dressing (QC): 5 On/Off Footwear (QC): 4 Toileting Hygiene (QC): 5 Toilet/Commode Transfer(FIM): 5 Toilet/Commode Transfer (QC): 5 Shower Transfer(FIM): 5 Comprehension(FIM): 6 Expression (FIM): 5 Social Interaction(FIM): 5 Problem Solving(FIM): 5 Memory(FIM): 5 Additional Goals: 1-Demonstrate ADL Tasks, 2-Verbalize Understanding, 3- ImproveStrength/Madalyn 1=Demonstrate adherence to instructed precautions during ADL tasks. 2=Patient will verbalize/demonstrate understanding of assistive devices/ modifications for ADL. 3=Patient will improve strength/tolerance for activity to enable patient to perform ADL's. OT Education/Plan Problem List/Assessment Pt to benefit from skilled OT intervention for ADL training, transfers, ROM/ strengthening, and safety education to maximize level of independence and allow safe discharge. Discharge Recommendations Plan/Recommendations: Continue POC Treatment Plan/Plan of Care Patient would benefit from OT for education, treatment and training to promote independence in ADL's, mobility, safety and/or upper extremity function for ADL' s. Plan of Care: ADL Retraining, Functional Mobility, Group Exercise/Act as Ind, Orthotic Fitting/Training, UE Funct Exercise/Act, UE Neuromus Re-Ed/Coord Treatment Duration: Aug 05, 2016 Minutes/Day (M-F): 60-90 Minutes/Day (Sat/Bryant): PRN Agreement: Yes Rehab Potential: Fair Time/GCodes Start Time: 09:00 Stop Time: 10:00 Total Time Billed (hr/min): 60 Billed Treatment Time 1 visit, ADLx3(45minutes), EX(15minutes) RASHIDA ORTIZ OT Jul 16, 2016 13:23
--- NOTE | 2016-07-16 13:58 | Occupational Ther Daily Note ---
OT Current Status-Daily Note Subjective Pt alert, eating lunch in bed. Pt agreed to therapy. No c/o pain. Mental Status/Objective Patient Orientation: Person, Place, Time, Situation Functional [place] Measure 0=Not Assessed/NA 4=Minimal Assistance 1=Total Assistance 5=Supervision or Setup 2=Maximal Assistance 6=Modified [place] 3=Moderate Assistance 7=Complete [place] ADL-Treatment Functional [place] Measure 0=Not Assessed/NA 4=Minimal Assistance 1=Total Assistance 5=Supervision or Setup 2=Maximal Assistance 6=Modified [place] 3=Moderate Assistance 7=Complete IndependenceIRFPAI Quality Coding Scale 6 Independent with activity with or without an assistive device 5 Patient requires set up or clean up by helper. Patient completes activity by themselves 4 Supervision or touching assist (CGA). [place] provide cues , steadying assist 3 The helper provides less than half the effort to complete the activity 2 The helper provides more than half the effort to complete the activity 1 Dependent. The helper does all the effort to complete an activity 7 Patient refused to complete or attempt activity 9 The patient did not perform the activity before the current illness or injury 88 Not attempted due to Medical conditions or safety concerns Other Treatment Pt able to go from supine to sitting EOB with HOB slightly raised. Min A for stand pivot transfers. Then transferred to therapy mat and required min A to lay toward L side. Pt demonstrated increased joint tightness in elbow, wrist and fingers. Joint distraction and mobilization, massage to decrease tightness and increase ROM to UE. Pt uses compensatory shldr movements to initiate movement of elbow. When elbow is isolated pt demonstrates AROM with elbow flexion then due to increased joint tightness unable to reach full ROM. Pt's PIP and DIP joints unable to extend due to tightness. Pt demonstrates passive movement in scapula though during active shldr movements scapular winging occurs. After therapy, pt lying in therapy mat and PT took over care. OT Short Term Goals Short Term Goals Time Frame: Jul 22, 2016 Bathing(FIM): 4 Upper Body Dressing(FIM): 4 Lower Body Dressing(FIM): 3 Toileting(FIM): 4 Toilet/Commode Transfer(FIM): 4 Shower Transfer(FIM): 4 (CGA) Additional Short Term Goals: 1-Demonstrate ADL Tasks, 2-Verbalize Understanding , 3-ImproveStrength/Madalyn 1=Demonstrate adherence to instructed precautions during ADL tasks. 2=Patient will verbalize/demonstrate understanding of assistive devices/ modifications for ADL. 3=Patient will improve strength/tolerance for activity to enable patient to perform ADL's. OT Tool Machine Set Up Operator Goals Longterm Goals Time Frame: Aug 05, 2016 Eating (FIM): 6 Eating (QC): 6 Oral Hygiene (QC): 6 Grooming(FIM): 5 Bathing(FIM): 4 Shower/Bathe Self (QC): 4 Upper Body Dressing(FIM): 6 Upper Body Dressing (QC): 6 Lower Body Dressing(FIM): 5 Lower Body Dressing (QC): 5 On/Off Footwear (QC): 4 Toileting Hygiene (QC): 5 Toilet/Commode Transfer(FIM): 5 Toilet/Commode Transfer (QC): 5 Shower Transfer(FIM): 5 Comprehension(FIM): 6 Expression (FIM): 5 Social Interaction(FIM): 5 Problem Solving(FIM): 5 Memory(FIM): 5 Additional Goals: 1-Demonstrate ADL Tasks, 2-Verbalize Understanding, 3- ImproveStrength/Madalyn 1=Demonstrate adherence to instructed precautions during ADL tasks. 2=Patient will verbalize/demonstrate understanding of assistive devices/ modifications for ADL. 3=Patient will improve strength/tolerance for activity to enable patient to perform ADL's. OT Education/Plan Problem List/Assessment Pt to benefit from skilled OT intervention for ADL training, transfers, ROM/ strengthening, and safety education to maximize level of independence and allow safe discharge. Discharge Recommendations Plan/Recommendations: Continue POC Treatment Plan/Plan of Care Patient would benefit from OT for education, treatment and training to promote independence in ADL's, mobility, safety and/or upper extremity function for ADL' s. Plan of Care: ADL Retraining, Functional Mobility, Group Exercise/Act as Ind, Orthotic Fitting/Training, UE Funct Exercise/Act, UE Neuromus Re-Ed/Coord Treatment Duration: Aug 05, 2016 Minutes/Day (M-F): 60-90 Minutes/Day (Sat/Bryant): PRN Agreement: Yes Rehab Potential: Fair Time/GCodes Start Time: 13:00 Stop Time: 13:30 Total Time Billed (hr/min): 30 Billed Treatment Time 1 visit-FA 2 (30 min) TULIO BERGMAN Jul 16, 2016 13:57
--- NOTE | 2016-07-16 14:02 | Physical Therapy Daily Note ---
PT Daily Note-Current Subjective Patient in therapy gym pre tx, on therapy table. Agrees to PT. Pain Numeric Pain Scale: 0-No Pain Appearance Patient in wheelchair post tx visiting with company. Has nurse call. Nurse notified about worse weakness, balance, and patient states he has worse speech. Mental Status Patient Orientation: Normal For Age Transfers Functional [place] Measure 0=Not Assessed/NA 4=Minimal Assistance 1=Total Assistance 5=Supervision or Setup 2=Maximal Assistance 6=Modified [place] 3=Moderate Assistance 7=Complete IndependenceIRFPAI Quality Coding Scale 6 Independent with activity with or without an assistive device 5 Patient requires set up or clean up by helper. Patient completes activity by themselves 4 Supervision or touching assist (CGA). [place] provide cues , steadying assist 3 The helper provides less than half the effort to complete the activity 2 The helper provides more than half the effort to complete the activity 1 Dependent. The helper does all the effort to complete an activity 7 Patient refused to complete or attempt activity 9 The patient did not perform the activity before the current illness or injury 88 Not attempted due to Medical conditions or safety concerns Transfers (B, C, W/C) (FIM): 4 Scootin Rollin Supine to/from Sit: 5 Sit to/from Stand: 4 Bed to/from Chair: 4 Patient needs min assist for transfers and sit to stand. He can do bed mobility and supine to sit with SBA but needs specific directions and cues and extra time. Gait Training Gait (FIM): 1 Distance: 20' Gait Level of Assist: 4 Gait Persons Needed: 1 Gait Assistive Device: Cane Large Base Quad Patient still min assist but had worse balance than yesterday and had a harder time advancing his left leg. Exercises Seated Therapy Exercises: Long arc quads Seated Reps: 10 toe taps on step x 10 each side, sit to stand x 5 in parallel bars with instructions on correct positioning Treatments ambulation, functional strengthening, sit to stand, bed mobility and transfers Assessment Current Status: Poor Progress Patient had worse sitting balance and standing balance, a harder time advancing his left leg during ambulation, and he says his speech is worse today, nurse notified PT Short Term Goals Short Term Goals Time Frame: Jul 22, 2016 Gait (FIM): 2 Gait Distance Comment: 70' Gait Level of Assist: 5 Gait Assistive Device: Cane Large Base Quad Wheelchair Distance: 200' PT Intermediate Goals Trim Line Worker Goals PT Intermediate Goals Time Frame: Aug 05, 2016 Transfers (B,C,W/C) (FIM): 6 Sit to Lying (QC): 6 Lying-Sitting on Side/Bed(QC): 6 Sit to Stand (QC): 6 Rollin Roll Left to Right (QC): 6 Chair/Ake-di-Iyyfn Xfer(QC): 6 Car Transfer (QC): 4 Gait (FIM): 6 Distance: 150' Walk 10 feet (QC): 6 Walk 10ft-Uneven Surface(QC): 6 Walk 50ft with 2 Turns (QC): 6 Walk 150 ft (QC): 6 Gait Assistive Device: Cane Large Base Quad Stairs (FIM): 2 # of Steps: 4 1 Step (curb) (QC): 4 4 Steps (QC): 4 12 Steps (QC): 88 Stairs Level Of Assist: 5 Picking up an Object (QC): 5 PT Plan Problem List Problem List: Activity Tolerance, Functional Strength, Safety, Balance, Gait, Transfer, Bed Mobility, ROM Treatment/Plan Treatment Plan: Continue Plan of Care Treatment Plan: Bed Mobility, Education, Functional Activity Madalyn, Functional Strength, Group Therapy, Gait, Safety, Therapeutic Exercise, Transfers Treatment Duration: Aug 05, 2016 Visits Per Week: 10-11 Minutes/Day (M-F): 60-90 Minutes/Day (Sat/Bryant): 15-30 Safety Risks/Education Patient Education: Gait Training, Transfer Techniques, Correct Positioning, Safety Issues Teaching Recipient: Patient Teaching Methods: Demonstration, Discussion Response to Teaching: Reinforcement Needed Time/GCodes Time In: 1330 Time Out: 1400 Total Billed Treatment Time: 30 Total Billed Treatment 1 visit EX 15 min FA 15 min ADONAY MULLEN PT Jul 16, 2016 14:02
--- NOTE | 2016-07-16 17:25 | PM & R (SOAP) Progress Note ---
Subjective Subjective/Events-last exam Patient was seen in his room this evening Met with patients SO and his brother Discussed case with PT earlier today Patient c/o pain after ambulation with PT today using his home AFO patient has incresed tone in left ankle and tends to plantarflex in typical lower extremity extensor pattern,Current meds reviewed.Patient not using many PRNS will simplify MAR. Review of Systems Musculoskeletal: : other (ankle pain with dorsiflexion) Neurological: : Weakness Objective Exam Last Set of Vital Signs Vital Signs Date Time Temp Pulse Resp B/P Pulse Ox O2 Delivery O2 Flow Rate FiO2 07/16/16 06:11 97.6 71 16 125/70 98 Room Air Capillary Refill : I&O Intake and Output 07/16/16 00:00 Intake Total 1470 ml Output Total 1650 ml Balance -180 ml Intake Oral 1470 ml Output Urine Total 1650 ml # Voids 3 # Bowel Movements 1 General: Alert, Oriented X3, Cooperative, No Acute Distress HEENT: Atraumatic, PERRLA, EOMI, Mucous Memb Moist/[place] Neck: Supple, No JVD Lungs: Clear to Auscultation Heart: Regular Rate Abdomen: Normal Bowel Sounds, Soft, No Tenderness Extremities: No Edema Neuro: Other (Left HP and dysarthria with increased tone Left lower extremity and as per above) Results Lab Laboratory Tests 07/15/16 17:17: Hematocrit 30L, Hemoglobin 9.8L, INR Comment 2.0H, Mean Corpuscular Hemoglobin 26, Mean Corpuscular Hemoglobin Concent 33, Mean Corpuscular Volume 79L, Mean Platelet Volume 10.1, Platelet Count 197, Prothrombin Time 22.5H, Red Blood Count 3.75L, Red Cell Distribution Width 17.0H, White Blood Count 3.1L 07/16/16 05:31: INR Comment 2.0H, Prothrombin Time 22.5H, Alanine Aminotransferase (ALT/SGPT) 12 , Albumin 3.6, Alkaline Phosphatase 84, Anion Gap 10, Aspartate Amino Transf ( AST/SGOT) 12, BUN/Creatinine Ratio 11, Blood Urea Nitrogen 16, Calcium Level 9.8 , Carbon Dioxide Level 27, Chloride Level 99, Creatinine 1.52H, Estimat Glomerular Filtration Rate 47, Glucose Level 94, Potassium Level 4.0, Sodium Level 136, Total Bilirubin 0.3, Total Protein 6.6 Assessment/Plan Assessment General debil secondary to UTI with sepsis treated OSH 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
--- NOTE | 2016-07-16 17:48 | Individualized Plan of Care ---
Individualized Plan of Care Rehab Nursing IPOC Order Admission Date Jul 14, 2016 at 22:05 Current Orders Orders-GRAEME GRESHAM MD Rehab Nursing Orders-Ipoc (07/14/16 22:57) Social Service (07/14/16 23:08) Physical Therapy [place] (07/14/16 23:08) Occupational Therapy Rehab Ord (07/14/16 23:08) Speech Therapy Rehab Orders (07/14/16 23:08) Heart Healthy (07/15/16 Breakfast) Acetaminophen Tablet (Tylenol Tablet) (07/14/16 23:15) Calcium Carbonate Chew Tablet (Antacid C (07/14/16 23:15) Docusate Sodium Capsule (Colace Capsule) (07/15/16 09:00) Famotidine Tablet (Pepcid Tablet) (07/15/16 09:00) Ferrous Sulfate Tablet (Feosol Tablet) (07/15/16 07:00) Gabapentin Capsule/Tablet (Neurontin Cap (07/15/16 09:00) Lactobacillus/Bulgaricus Tab (Lactinex (07/15/16 09:00) Antacid Suspension (Mylanta Suspension (07/14/16 23:15) Melatonin Tablet (Melatonin Tablet) (07/15/16 21:00) Polyethylene Glycol Powder Pkt (Miralax (07/14/16 23:15) Polyethylene Glycol Powder Pkt (Miralax (07/15/16 09:00) Warfarin Tablet (Coumadin Tablet) (07/15/16 18:00) Atorvastatin Tablet (Lipitor) (07/15/16 21:00) Butalbital/Apap/Caffeine Tab (Fioricet T (07/14/16 23:30) Magnesium Oxide Tablet (Mag Ox Tablet) (07/15/16 09:00) Tamsulosin Capsule (Flomax Capsule) (07/15/16 09:00) Carvedilol Tablet (Coreg Tablet) (07/15/16 09:00) Clopidogrel Tablet (Plavix Tablet) (07/15/16 09:00) Loratadine Tablet (Claritin Tablet) (07/15/16 09:00) [place] 3 Capsule (Fish Oil Capsule) (07/15/16 09:00) Ondansetron Oral Dissolve Tab (Zofran (07/14/16 23:30) Alprazolam Tablet (Xanax Tablet) (07/14/16 23:30) Cefdinir Capsule (Omnicef Capsule) (07/15/16 09:00) Cyclobenzaprine Tablet (Flexeril Tablet) (07/14/16 23:30) Oxycodone/Apap 5/325mg Tablet (Percocet (07/14/16 23:30) Temazepam Capsule (Restoril Capsule) (07/14/16 23:30) Alfuzosin Tablet (Uroxatral Tablet) (07/15/16 09:38) Admission-Acute Rehab Unit (07/15/16 11:46) Patient Visit (07/15/16 ) Pt Eval Low Complexity (07/15/16 ) Gait Training, Ea 15 Min (07/15/16 ) Functional Activities, Ea 15 (07/15/16 ) Wheelchair Mgmt/Propulsn 15min (07/15/16 ) Patient Visit (07/15/16 ) Therapeutic, Group (07/15/16 ) Patient Visit (07/15/16 ) Speech Sound Lang Comp (07/15/16 ) Cbc No Diff (07/15/16 17:03) Protime With Inr (07/15/16 17:03) Protime With Inr (07/16/16 05:00) Admission-Acute Rehab Unit (07/15/16 17:59) Vital Signs: Routine 08,16,00 (07/15/16 17:59) Social Service (07/15/16 17:59) Intake & Output Shift Assessme 06,14,22 (07/15/16 17:59) Precautions (Aru) (07/15/16 17:59) Weekly Weight (Lbs) WEEK (07/15/16 17:59) Comprehensive Metabolic Panel (07/16/16 06:00) Consult Physician (07/15/16 18:02) Patient Visit (07/16/16 ) Gait Training, Ea 15 Min (07/16/16 ) Functional Activities, Ea 15 (07/16/16 ) Exercise Therap, Ea 15 Min (07/16/16 ) Baclofen Tablet (Lioresal Tablet) (07/16/16 21:00) Diclofenac 1% Gel (Voltaren 1% Gel) (07/16/16 21:00) Ankle, Left, 3 Views (07/17/16 08:00) PT IPOC Problem List: Activity Tolerance, Functional Strength, Safety, Balance, Gait, Transfer, Bed Mobility, ROM Treatment Plan: Continue Plan of Care Bed Mobility, Education, Functional Activity Madalyn, Functional Strength, Group Therapy, Gait, Safety, Therapeutic Exercise, Transfers Treatment Duration: Aug 05, 2016 Visits Per Week: 10-11 Minutes/Day (M-F): 60-90 Minutes/Day (Sat/Bryant): 15-30 OT IPOC Problems: Decreased Activ Tolerance, Decreased UE Strength, Dependent Transfers , Impaired Coordination, Impaired Funct Balance, Impaired I ADL's, Impaired Self -Care Skills, Restricted Funct UE ROM OT Problems Pt to benefit from skilled OT intervention for ADL training, transfers, ROM/ strengthening, and safety education to maximize level of independence and allow safe discharge. Plan of Care: ADL Retraining, Functional Mobility, Group Exercise/Act as Ind, Orthotic Fitting/Training, UE Funct Exercise/Act, UE Neuromus Re-Ed/Coord Treatment Duration: Aug 05, 2016 Visits Per Week: 10-11 Minutes/Day (M-F): 60-90 Minutes/Day (Sat/Bryant): PRN ST IPOC Speech Therapy Treatment Plan: Continue Plan of Care Treatment Duration: Aug 12, 2016 Visits Per Week: Four to Five Minutes/Day (M-F): 30-45 Physician IPOC Medical Issues being managed closely and that require the 24 hour availability of a physician:Incresed tone LLE,Painful left ankle Chronic anemia and leukopenia and anticoagulation completion of antibiotic for treatment of UTI associated with Sepsis Medical Issues: Bowel/Bladder Function, DVT Prophylaxis, Falls Precautions, Fluid/Electrolyte/Nutrition Balance, Infection Protection, Pain Management, Other (List) (as per above) Brief Synthesis of Preadmission Screen, Post-Admission Evaluation, and Therapy Evaluations:60 yo male with hx of rt CVa with L HP and dysarthria who had been Modified Independent for W/c mobility at home prior to UTI associated with sepsis treated at OSH with resulting decline in functional staus Has SO and brother who had been assisting him at home after stroke. He is a disabled esqueda self employed and without medical insurance.He indicates that he has been approved for SSI He lives in [facility] [place] He has some incresed tone in left ankle with resulting pain with ambulation with his afo and PT Trial of baclofen and voltaran gel ordered Xray as well Medical Prognosis: good Anticipated Length of Stay: 2-3 weeks Rehab Goals Return to PLOF or better Anticipated discharge destinat: Home with his brother and SO GRAEME GRESHAM MD Jul 16, 2016 17:48
[2016-07-16 18:12] VITALS: BP 129/83
[2016-07-16] MEDS: warFARin 5 MG (COUMADIN) TAB PO SCH (18:30)
[2016-07-16] MEDS: MELATONIN 3 MG TABLET PO SCH (21:06)
[2016-07-16] MEDS: BACLOFEN 10 MG (LIORESAL) TAB PO SCH (21:06)
[2016-07-16] MEDS: ATORVASTATIN 40 MG (LIPITOR) TABLET PO SCH (21:06)
[2016-07-16] MEDS: DICLOFENAC 1% GEL 100 GM (VOLTAREN) TUBE TOP SCH (21:07)
[2016-07-17] MEDS: ACETAMINOPHEN 500 MG TAB (TYLENOL) PO PRN (05:47)
[2016-07-17] MEDS: FLUTICASONE NASAL SPRAY (FLONASE) 16 GM BTL NS SCH (05:48)
[2016-07-17 05:55] LABS: INR 2.2 (0.8-1.4)
[2016-07-17 06:00] VITALS: BP 125/77
[2016-07-17] MEDS: FERROUS SULF 325 MG (IRON) TAB PO SCH ×2 (06:05→18:14)
[2016-07-17] MEDS: GABAPENTIN 300 MG (NEURONTIN) CAP PO SCH ×3 (08:10→21:17)
[2016-07-17] MEDS: LACTOBACILLUS Acidoph/Bulgar (LACTINEX/FLORANEX) TAB PO SCH ×2 (08:10→21:17)
[2016-07-17] MEDS: LORATADINE (CLARITIN) 10 MG TAB PO SCH (08:10)
[2016-07-17] MEDS: BACLOFEN 10 MG (LIORESAL) TAB PO SCH ×3 (08:10→21:17)
[2016-07-17] MEDS: CLOPIDOGREL 75 MG (PLAVIX) TABLET PO SCH (08:10)
[2016-07-17] MEDS: OMEGA 3 (FISH OIL) 1000 MG CAP PO SCH (08:10)
[2016-07-17] MEDS: CEFDINIR 300 MG (OMNICEF) CAP PO SCH ×2 (08:10→21:17)
[2016-07-17] MEDS: MAGNESIUM OXIDE (MAG-OX)400 MG TAB PO SCH (08:10)
[2016-07-17] MEDS: DOCUSATE SODIUM 100 MG (COLACE) CAP PO SCH (08:10)
[2016-07-17] MEDS: CARVEDILOL 6.25 MG (COREG) TAB PO SCH ×2 (08:10→21:17)
[2016-07-17] MEDS: FAMOTIDINE 20 MG (PEPCID) TABLET PO SCH ×2 (08:10→21:17)
[2016-07-17] MEDS: POLYETHYLENE GLYCOL 17 GM (MIRALAX) PACK PO SCH (08:12)
[2016-07-17] MEDS: DICLOFENAC 1% GEL 100 GM (VOLTAREN) TUBE TOP SCH ×4 (08:12→21:18)
--- NOTE | 2016-07-17 08:24 | Progress Note (SOAP) ---
Subjective Subjective/Events-last exam patient feeling good today. Left ankle swollen x-ray ordered. CVA on left Objective Exam Vital Signs Date Time Temp Pulse Resp B/P Pulse Ox O2 Delivery O2 Flow Rate FiO2 07/17/16 06:00 97.9 75 20 125/77 97 Room Air 07/16/16 18:12 96.1 78 14 129/83 98 I & O 07/17/16 07:00 Intake Total 2150 ml Output Total 2825 ml Balance -675 ml Capillary Refill : General Appearance: No Apparent Distress HEENT: Normal ENT Inspection Neck: Normal Inspection Respiratory: Chest Non Tender Lungs Clear Normal Breath Sounds No Accessory Muscle Use No Respiratory Distress Cardiovascular: Regular Rate, Rhythm Gastrointestinal: non tender soft Results Lab Laboratory Tests 07/17/16 05:22: INR Comment 2.2H, Prothrombin Time 24.0H Assessment/Plan Assessment/Plan Assess & Plan/Chief Complaint weakness. Previous stroke. Sepsis. UTI. Hyponatremia. History of LV thrombus. Acute kidney injury. . 07/17/16 weakness. Sepsis history. Hyponatremia. CVA on left. Patient feeling better today Diagnosis/Problems: Clinical Quality Measures DVT/VTE Risk/Contraindication: Risk Factor Score Per Nursin RFS Level Per Nursing on Admit: 4+=Very High VAIBHAV ZAIDI DO Jul 17, 2016 08:24
--- NOTE | 2016-07-17 08:43 | Diagnostic Imaging Report ---
INDICATION: Left ankle pain AP, oblique and lateral views of the left ankle are obtained. There is diffuse osseous demineralization. There is moderate plantar calcaneal spurring. Ankle mortise is maintained. There is no evidence of acute fracture or malalignment. IMPRESSION: Diffuse osseous demineralization without acute abnormality detected. Dictated by: Dictated on workstation # [id number]
--- NOTE | 2016-07-17 11:59 | Occupational Ther Daily Note ---
OT Current Status-Daily Note Subjective Pt sitting in w/c, agrees to treatment. Pt reports fatigue after session. Mental Status/Objective Functional Reading Measure 0=Not Assessed/NA 4=Minimal Assistance 1=Total Assistance 5=Supervision or Setup 2=Maximal Assistance 6=Modified Reading 3=Moderate Assistance 7=Complete Reading ADL-Treatment Pt agrees to shower this am. W/c mobility to restroom without assistance. Stand pivot transfer w/c <-> shower bench with minimal assistance using grab bar for balance and safety. Pt doffed shirt with minimal assistance. Mod assist and increased time to doff LE clothing. Seated bathing completed with hand held shower. Pt able to wash chest, abdomen, left UE, bilateral upper legs, and levon area. Assist for other areas. Don pullover shirt with moderate assistance and increased time, cues for technique. Pt unable to reach feet to start underwear/ pants over feet. Instruction provided regarding use of flat optical element maker for LE dressing. Pt able to thread right LE into pants, but requires assist to lift left LE into pant leg. Pt uses flat optical element maker to pull pants and underwear up to knees.Stood with mod assist for balance during pant hike. Pt able to pull pants up on right, but requires assist on left. Pt donned right sock with set up and increased time. Minimal assistance to don right slip on shoe. Assist required to don left sock, AFO, and shoe. Pt combed hair with SBA while seated at sink. Pt reports fatigue after session and requests to return to bed. Transfer w/c to bed with minimal assistance. Sit to supine with assist for left LE. Pt in bed with needs met after session. Functional Reading Measure 0=Not Assessed/NA 4=Minimal Assistance 1=Total Assistance 5=Supervision or Setup 2=Maximal Assistance 6=Modified Reading 3=Moderate Assistance 7=Complete IndependenceIRFPAI Quality Coding Scale 6 Independent with activity with or without an assistive device 5 Patient requires set up or clean up by helper. Patient completes activity by themselves 4 Supervision or touching assist (CGA). [place] provide cues , steadying assist 3 The helper provides less than half the effort to complete the activity 2 The helper provides more than half the effort to complete the activity 1 Dependent. The helper does all the effort to complete an activity 7 Patient refused to complete or attempt activity 9 The patient did not perform the activity before the current illness or injury 88 Not attempted due to Medical conditions or safety concerns Grooming (FIM): 5 (comb hair only) Bathing (FIM): 3 Upper Body (FIM): 3 Lower Body Dressing (FIM): 2 Lower Body Dressing (QC): 2 Shower Transfer(FIM): 4 Education OT Patient Education: Modified ADL techniques Teaching Recipient: Patient Teaching Methods: Demonstration, Discussion Response to Teaching: Return Demonstration OT Short Term Goals Short Term Goals Time Frame: Jul 22, 2016 Bathing(FIM): 4 Upper Body Dressing(FIM): 4 Lower Body Dressing(FIM): 3 Toileting(FIM): 4 Toilet/Commode Transfer(FIM): 4 Shower Transfer(FIM): 4 (CGA) Additional Short Term Goals: 1-Demonstrate ADL Tasks, 2-Verbalize Understanding , 3-ImproveStrength/Madalyn 1=Demonstrate adherence to instructed precautions during ADL tasks. 2=Patient will verbalize/demonstrate understanding of assistive devices/ modifications for ADL. 3=Patient will improve strength/tolerance for activity to enable patient to perform ADL's. OT Mcc Goals Mcc Goals Time Frame: Aug 05, 2016 Eating (FIM): 6 Eating (QC): 6 Oral Hygiene (QC): 6 Grooming(FIM): 5 Bathing(FIM): 4 Shower/Bathe Self (QC): 4 Upper Body Dressing(FIM): 6 Upper Body Dressing (QC): 6 Lower Body Dressing(FIM): 5 Lower Body Dressing (QC): 5 On/Off Footwear (QC): 4 Toileting Hygiene (QC): 5 Toilet/Commode Transfer(FIM): 5 Toilet/Commode Transfer (QC): 5 Shower Transfer(FIM): 5 Comprehension(FIM): 6 Expression (FIM): 5 Social Interaction(FIM): 5 Problem Solving(FIM): 5 Memory(FIM): 5 Additional Goals: 1-Demonstrate ADL Tasks, 2-Verbalize Understanding, 3- ImproveStrength/Madalyn 1=Demonstrate adherence to instructed precautions during ADL tasks. 2=Patient will verbalize/demonstrate understanding of assistive devices/ modifications for ADL. 3=Patient will improve strength/tolerance for activity to enable patient to perform ADL's. OT Education/Plan Problem List/Assessment Pt to benefit from skilled OT intervention for ADL training, transfers, ROM/ strengthening, and safety education to maximize level of independence and allow safe discharge. Discharge Recommendations Plan/Recommendations: Continue POC Treatment Plan/Plan of Care Patient would benefit from OT for education, treatment and training to promote independence in ADL's, mobility, safety and/or upper extremity function for ADL' s. Plan of Care: ADL Retraining, Functional Mobility, Group Exercise/Act as Ind, Orthotic Fitting/Training, UE Funct Exercise/Act, UE Neuromus Re-Ed/Coord Treatment Duration: Aug 05, 2016 Visits Per Week: 10-11 Minutes/Day (M-F): 60-90 Minutes/Day (Sat/Bryant): PRN Agreement: Yes Rehab Potential: Fair Time/GCodes Start Time: 10:00 Stop Time: 11:00 Total Time Billed (hr/min): 60 Billed Treatment Time 1 visit, ADLx4(60minutes) RASHIDA ORTIZ OT Jul 17, 2016 11:59
--- NOTE | 2016-07-17 13:44 | ST Dysphagia Evaluation ---
Speech Evaluation-General Medical Diagnosis UTI Onset Date: Jul 06, 2016 Therapy Diagnosis Therapy Diagnosis: Mild Oropharyngeal Dysphagia Precautions Precautions/Isolations: Fall Prevention, Standard Precautions Referral Referring Physician: Dr. Jeremiah Kang Reason for Referral: Evaluation/Treatment Clinical Bedside Swallowing Evaluation Medical History Pertinent Medical History: CVA, GERD Reviewed History: Yes Social History Current Living Status: Friend Speech PLF/Current-Dysphagia Prior Level of Function Per patient, he has experienced intermittent throat clearing with all consistencies following his CVA in January 2016. The patient denied a modified diet and states he consumes a regular diet with thin liquids at home. The patient stated "I just take my time, go slowly, and I do okay." Subjective The patient was recently admitted to [facility] following a diagnosis of a UTI. The patient greeted the clinician appropriately and agreed to participate in the dysphagia evaluation on this date. Per patient, he did participate in dysphagia therapy (exercises) initially following his CVA in January 2016. Cognitive Status Patient Orientation: Person, Place, Time, Situation Oral Motor Skills Dentition: Edentalous Denture Type: Full- Upper & Lower Current Food Consistancy: Regular, Thin Liquids Ability to Follow Directions: Good Oral Expression Ability: Mild Impairment Voice Voice Phonatory-Based Quality: Harsh, Hoarse Voice Pitch: Normal Voice Loudness: Mildly Soft/Quiet Face Facial Symmetry: Asymmetrical (Mild left facial droop.) Oral-Facial Assessment Labial Seal Description: Normal Smile: Droops Left Puff Cheeks: Reduced Strength (Left.) Lingual Protrusion: Normal Lingual ROM: Normal Lingual Strength: Normal Pharynx Velopharyngeal Move.: Normal Volitional Dry Swallow: Yes Dysphagia Evaluation Consistencies Presented: Regular, Thin Liquid Oral Phase: Oral Residue, Reduced Oral Transit The patient demonstrated increased mastication time with solid consistencies, as well as, lingual residue. The patient was able to clear the lingual residue spontaneously with a dry swallow. Pharyngeal Phase: Multiple Swallow Attempts, Delayed Swallow - Thin Liquid, Solid: No signs/symptoms of aspiration were demonstrated with multiple boluses of thin liquid (via straw) or solid consistencies. The patient' s vocal quality remained clear throughout the evaluation. Dietary Recommendations: Regular Liquid Recommendations: Thin Swallowing Precautions: Small Bites and Sips, Sitting 90 Degrees 30 Post Intake Dysphagia Evaluation Summary Mild oropharyngeal dysphagia characterized by decreased lingual and labial range of motion and strength. Speech Short Term Goals Short Term Goals Short Term Goals 1. The patient will demonstrate oral motor exercises with 90% accuracy, independently. 2. The patient will demonstrate 90% intelligible with functional phrases, independently. 3. The patient will demonstrate dysphagia exercises with 90% accuracy, independently. Time Frame-STG: Two Weeks Speech Mcc Goals Sales Development Consultant Goals 1. The patient will demonstrate improved expressive communication for increased safety and function with ADL's. 2. The patient will tolerate the least restrictive diet without signs/symptoms of aspiration or laryngeal penetration. Time Frame: Four Weeks Comprehension: 6 Expression: 5 Social Interaction: 5 Problem Solvin Memory: 5 Speech-Plan Treatment Plan Speech Therapy Treatment Plan: Continue Plan of Care Treatment Duration: Aug 12, 2016 # of days/week Four to Five Visits Per Week: Four to Five Minutes/Day (M-F): 30-45 Rehab Potential: Fair Safety Risks/Education Teaching Recipient: Patient Teaching Methods: Demonstration, Handout, Discussion Response to Teaching: Verbalize Understanding, Reinforcement Needed Education Topics Provided: Results, Recommendations, Swallowing Strategies Time Speech Therapy Time In: 09:30 Speech Therapy Time Out: 10:00 Total Billed Time: 30 Billed Treatment Time [place] MARI LANDRUM Jul 17, 2016 13:44
--- NOTE | 2016-07-17 13:46 | Physical Therapy Daily Note ---
PT Daily Note-Current Subjective Pt is sitting up in bed upon arrival. Pt agree to Pt. Pt reports feeling a little stiff this morning but thinks it will work itself out during tx. Pain Numeric Pain Scale: 0-No Pain Location: No Pain Reported Mental Status Patient Orientation: Person, Normal For Age Attachments: Other-See Comments (AFO for LLE) Transfers Functional [place] Measure 0=Not Assessed/NA 4=Minimal Assistance 1=Total Assistance 5=Supervision or Setup 2=Maximal Assistance 6=Modified [place] 3=Moderate Assistance 7=Complete IndependenceIRFPAI Quality Coding Scale 6 Independent with activity with or without an assistive device 5 Patient requires set up or clean up by helper. Patient completes activity by themselves 4 Supervision or touching assist (CGA). [place] provide cues , steadying assist 3 The helper provides less than half the effort to complete the activity 2 The helper provides more than half the effort to complete the activity 1 Dependent. The helper does all the effort to complete an activity 7 Patient refused to complete or attempt activity 9 The patient did not perform the activity before the current illness or injury 88 Not attempted due to Medical conditions or safety concerns Scootin Sit to/from Stand: 4 Sit to Stand (QC): 4 Chair/Bff-vy-Joxlz Xfer(QC): 4 Weight Bearing Weight Bearing Restriction: Full Weight Bearing Location Restriction: LE Bilateral Gait Training Does the Patient Walk?: Yes Gait (FIM): 2 Distance (FIM): 1=up to 49 ft Distance: 30' Walk 10 feet (QC): 3 Walk 50 ft with 2 Turns(QC): 88 Walk 150 ft (QC): 88 Gait Level of Assist: 3 Gait Persons Needed: 1 Gait Assistive Device: Walker Donnie Pt has a lot of weakness on LLE and has difficultly advancing LLE. Pt advances LLE himself but finds it difficult. Wheelchair Training Does the Pt Use a Wheelchair?: Yes Wheelchair Distance: 4=500-76 ft Distance: 125' Wheelchair Level of Assist: 5 Wheel 50 ft with 2 turns (QC): 5 Type of Wheelchair: Manual Exercises Supine Ex: Ankle pumps, Quad Set, Heel Slides, Straight leg raise, Hip abd/add Supine Reps: 10 NuStep Minutes: 11 NuStep Workload: 4 Treatments PT waits for pt to finish morning meds. PT assists pt with donning AFO and shoes for tx. Pt transfers from bed to W/C using Donnie at Mod A. Pt then able to propel W/C to Therapy Gym. Pt then transfers to NuStep using Donnie at Min A. Pt uses NuStep for 11m at Workload 4. Pt is not able to use LUE during tx. Pt then transfers to standing using Donnie and walks to mat for supine EX. Pt walks with Donnie at Mod A to assist with stability since BLE buckle while ambulating. Pt transfers to supine on at for supine Ex. Pt takes a short rest break during Ex. Pt then transfers back to W/C at Min A. Pt propels W/C back to room to rest and await ST who is coming shortly. Pt is left with all needs met at end of tx. Assessment Current Status: Good Progress Pt continues to have weakness in L UE & LE. Pt is stiff and lethargic to start tx but loosens up with Ex. PT Short Term Goals Short Term Goals Time Frame: Jul 22, 2016 Gait (FIM): 2 Gait Distance Comment: 70' Gait Level of Assist: 5 Gait Assistive Device: Cane Large Base Quad Wheelchair Distance: 200' PT Music Publisher Goals Snf Goals PT Snf Goals Time Frame: Aug 05, 2016 Transfers (B,C,W/C) (FIM): 6 Sit to Lying (QC): 6 Lying-Sitting on Side/Bed(QC): 6 Sit to Stand (QC): 6 Rollin Roll Left to Right (QC): 6 Chair/Mwt-kr-Rmunv Xfer(QC): 6 Car Transfer (QC): 4 Gait (FIM): 6 Distance: 150' Walk 10 feet (QC): 6 Walk 10ft-Uneven Surface(QC): 6 Walk 50ft with 2 Turns (QC): 6 Walk 150 ft (QC): 6 Gait Assistive Device: Cane Large Base Quad Stairs (FIM): 2 # of Steps: 4 1 Step (curb) (QC): 4 4 Steps (QC): 4 12 Steps (QC): 88 Stairs Level Of Assist: 5 Picking up an Object (QC): 5 PT Plan Problem List Problem List: Activity Tolerance, Functional Strength, Safety, Balance, Gait, Transfer Treatment/Plan Treatment Plan: Continue Plan of Care Treatment Plan: Bed Mobility, Education, Functional Activity Madalyn, Functional Strength, Group Therapy, Gait, Safety, Therapeutic Exercise, Transfers Treatment Duration: Aug 05, 2016 Visits Per Week: 10-11 Minutes/Day (M-F): 60-90 Minutes/Day (Sat/Bryant): 15-30 Safety Risks/Education Patient Education: Gait Training, Transfer Techniques, Correct Positioning, Safety Issues Teaching Recipient: Patient Teaching Methods: Discussion Response to Teaching: Verbalize Understanding Time/GCodes Time In: 815 Time Out: 915 Total Billed Treatment Time: 60 Total Billed Treatment visit, GT (10m), FA (20m) & EX X2 (30m) EZRA CAIN FRUIT SHIPPER Jul 17, 2016 13:46
--- NOTE | 2016-07-17 14:40 | Therapy Group Daily Note ---
Therapy Daily Group Note Patient Education Topic Other List Below (education on arthritis, benefits of using parafin bath, different uses for built up utensils) Exercises Stretching, UE Exercise Other/Notes Pt participated socially by introducing self and describing what he likes to do to help him relax. Topic of discussion was arthritis, carpal tunnel and the benefits of using a paraffin bath, different types of AE for arthritis. Pt was able to place both hands in the paraffin bath. Pt then completed nerve glide exercise. Pt transported self to room in w/c. Pt in w/c, call light in hand. All needs met. Start Time: 13:00 Stop Time: 14:10 Total Billed Treatment Time: 70 Total Billed Treatment 1-GRP TULIO BERGMAN Jul 17, 2016 14:40
--- NOTE | 2016-07-17 15:08 | Therapy Group Daily Note ---
Therapy Daily Group Note Patient Education Topic Exercises, Other List Below (education on arthritis, benefits of using parafin bath, different uses for built up utensils) Other/Notes Pt participated socially by introducing self and describing what he likes to do to help him relax. Topic of discussion was arthritis, carpal tunnel and the benefits of using a paraffin bath, different types of AE for arthritis. Pt was able to place both hands in the paraffin bath. Pt then completed nerve glide exercise. Pt transported self to room in w/c. Pt in w/c, call light in hand. All needs met. Start Time: 13:00 Stop Time: 14:10 Total Billed Treatment Time: 70 Total Billed Treatment 1-GRP TULIO BERGMAN Jul 17, 2016 15:08
[2016-07-17 18:04] VITALS: BP 142/81
[2016-07-17] MEDS: warFARin 5 MG (COUMADIN) TAB PO SCH (18:14)
[2016-07-17] MEDS: ATORVASTATIN 40 MG (LIPITOR) TABLET PO SCH (21:17)
[2016-07-17] MEDS: MELATONIN 3 MG TABLET PO SCH (21:17)
[2016-07-18] MEDS: ACETAMINOPHEN 500 MG TAB (TYLENOL) PO PRN (04:10)
[2016-07-18 05:46] LABS: INR 2.3 (0.8-1.4); PROTHROMBIN TIME PATIENT 24.7 SEC (12.2-14.7)
[2016-07-18 05:58] LABS: CALCIUM 9.5 MG/DL (8.5-10.1); CREATININE SERUM 1.42 MG/DL (0.60-1.30); POTASSIUM 3.9 MMOL/L (3.6-5.0)
[2016-07-18 06:00] VITALS: BP 146/78
[2016-07-18] MEDS: FERROUS SULF 325 MG (IRON) TAB PO SCH ×3 (06:18→12:34)
[2016-07-18 06:37] VITALS: BP 139/86
[2016-07-18 06:52] LABS: MEAN PLATELET VOLUME 10.2 FL (7.4-10.4); RED BLOOD COUNT 4.31 10^6/uL (4.35-5.85); RED CELL DISTRIBUTION WIDTH 17.3 % (10.0-14.5); WHITE BLOOD COUNT 4.1 10^3/uL (4.3-11.0)
[2016-07-18 07:06] LABS: ALBUMIN 3.7 G/DL (3.2-4.5); BILIRUBIN,TOTAL 0.3 MG/DL (0.1-1.0); CALCIUM 9.5 MG/DL (8.5-10.1); CREATININE SERUM 1.48 MG/DL (0.60-1.30); POTASSIUM 3.8 MMOL/L (3.6-5.0); TOTAL PROTEIN 6.6 G/DL (6.4-8.2)
--- NOTE | 2016-07-18 08:03 | PM & R (SOAP) Progress Note ---
Subjective Subjective/Events-last exam Patient was seen in his room this AM Has a change in mental status more lethargic DR Arizmendi has ordered some tests Discussed case with RN -Juan Diego sun/rebeca ko as this may be contributing to lethargy. Objective Exam Last Set of Vital Signs Vital Signs Date Time Temp Pulse Resp B/P Pulse Ox O2 Delivery O2 Flow Rate FiO2 07/18/16 06:37 75 139/86 97 Room Air 07/18/16 06:00 98.4 18 Capillary Refill : I&O Intake and Output 07/18/16 00:00 Intake Total 2425 ml Output Total 2625 ml Balance -200 ml Intake Oral 2425 ml Output Urine Total 2625 ml General: Alert, Oriented X3, Cooperative, No Acute Distress HEENT: Atraumatic, PERRLA, EOMI, Mucous Memb Moist/[place] Neck: Supple, No JVD Lungs: Clear to Auscultation Heart: Regular Rate Abdomen: Normal Bowel Sounds, Soft, No Tenderness Extremities: No Edema Neuro: Other (Left HP and dysarthria with increased tone Left lower extremity and as per above More lethargic as per above and non verbal) Results Lab Laboratory Tests 07/15/16 17:17: Hematocrit 30L, Hemoglobin 9.8L, INR Comment 2.0H, Mean Corpuscular Hemoglobin 26, Mean Corpuscular Hemoglobin Concent 33, Mean Corpuscular Volume 79L, Mean Platelet Volume 10.1, Platelet Count 197, Prothrombin Time 22.5H, Red Blood Count 3.75L, Red Cell Distribution Width 17.0H, White Blood Count 3.1L 07/16/16 05:31: INR Comment 2.0H, Prothrombin Time 22.5H, Alanine Aminotransferase (ALT/SGPT) 12 , Albumin 3.6, Alkaline Phosphatase 84, Anion Gap 10, Aspartate Amino Transf ( AST/SGOT) 12, BUN/Creatinine Ratio 11, Blood Urea Nitrogen 16, Calcium Level 9.8 , Carbon Dioxide Level 27, Chloride Level 99, Creatinine 1.52H, Estimat Glomerular Filtration Rate 47, Glucose Level 94, Potassium Level 4.0, Sodium Level 136, Total Bilirubin 0.3, Total Protein 6.6 07/17/16 05:22: INR Comment 2.2H, Prothrombin Time 24.0H 07/18/16 04:50: Hematocrit 34L, Hemoglobin 11.2L, INR Comment 2.3H, Mean Corpuscular Hemoglobin 26, Mean Corpuscular Hemoglobin Concent 33, Mean Corpuscular Volume 80, Mean Platelet Volume 10.2, Platelet Count 220, Prothrombin Time 24.7H, Red Blood Count 4.31L, Red Cell Distribution Width 17.3H, White Blood Count 4.1L, Alanine Aminotransferase (ALT/SGPT) 13, Albumin 3.7, Alkaline Phosphatase 86, Anion Gap 11, Aspartate Amino Transf (AST/SGOT) 15, BUN/Creatinine Ratio 11, Blood Urea Nitrogen 16, Calcium Level 9.5, Carbon Dioxide Level 22, Chloride Level 102, Creatinine 1.48H, Estimat Glomerular Filtration Rate 48, Glucose Level 102, Potassium Level 3.8, Sodium Level 135, Total Bilirubin 0.3, Total Protein 6.6 Assessment/Plan Assessment General debil secondary to UTI with sepsis treated OSH Change in mental status w/u in progress-will d/c baclofen 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
--- NOTE | 2016-07-18 08:16 | Diagnostic Imaging Report ---
PROCEDURE: CT head without contrast. TECHNIQUE: Multiple contiguous axial images were obtained through the brain without the use of intravenous contrast. INDICATION: History of stroke. Altered mental status. COMPARISON: None. FINDINGS: Generalized cerebral and cerebellar parenchymal volume loss. Moderate to advanced leukoaraiosis. No CT evidence of acute infarction. Chronic lacunar infarct in the left basal ganglia. No intracranial hemorrhage, mass effect, extra-axial fluid collection or hydrocephalus. Osseous structures are intact. The orbits and visualized paranasal sinuses are unremarkable. IMPRESSION: No acute intracranial CT findings. Dictated by: Dictated on workstation # [id number]
--- NOTE | 2016-07-18 08:56 | Physical Therapy Daily Note ---
PT Daily Note-Current Subjective Patient in bed pre tx, he is very lethargic and will wake when shook but just opens his eyes to look, no communication. His nurse aide just cleaned him up in bed from an incontinent BM which she states was tarry and black. He also just got back to his room from a head CT. PT will be performing bilateral lower extremity ROM and stretching in bed this morning due to extreme lethargy. I don't feel that he could safely perform any mobility at this time. Appearance Patient in bed post tx with nurse call, phone, wilmay, SCD's on, all needs met. Mental Status Patient Orientation: Unable to Assess Attachments: SCD's Transfers Functional [place] Measure 0=Not Assessed/NA 4=Minimal Assistance 1=Total Assistance 5=Supervision or Setup 2=Maximal Assistance 6=Modified [place] 3=Moderate Assistance 7=Complete IndependenceIRFPAI Quality Coding Scale 6 Independent with activity with or without an assistive device 5 Patient requires set up or clean up by helper. Patient completes activity by themselves 4 Supervision or touching assist (CGA). [place] provide cues , steadying assist 3 The helper provides less than half the effort to complete the activity 2 The helper provides more than half the effort to complete the activity 1 Dependent. The helper does all the effort to complete an activity 7 Patient refused to complete or attempt activity 9 The patient did not perform the activity before the current illness or injury 88 Not attempted due to Medical conditions or safety concerns Exercises Bilateral lower extremity stretching/ROM in bed in all planes. Patient has tight hamstrings, glutes, and gastroc on the left side. Treatments ROM/stretching Assessment Current Status: Poor Progress patient lethargic, unable to perform mobility training at this time PT Short Term Goals Short Term Goals Time Frame: Jul 22, 2016 Gait (FIM): 2 Gait Distance Comment: 70' Gait Level of Assist: 5 Gait Assistive Device: Cane Large Base Quad Wheelchair Distance: 125' PT Printing Press Operator Apprentice Goals Shelter Goals PT Printing Press Operator Apprentice Goals Time Frame: Aug 05, 2016 Transfers (B,C,W/C) (FIM): 6 Sit to Lying (QC): 6 Lying-Sitting on Side/Bed(QC): 6 Sit to Stand (QC): 6 Rollin Roll Left to Right (QC): 6 Chair/Fhy-ls-Abnws Xfer(QC): 6 Car Transfer (QC): 4 Gait (FIM): 6 Distance: 150' Walk 10 feet (QC): 6 Walk 10ft-Uneven Surface(QC): 6 Walk 50ft with 2 Turns (QC): 6 Walk 150 ft (QC): 6 Gait Assistive Device: Cane Large Base Quad Stairs (FIM): 2 # of Steps: 4 1 Step (curb) (QC): 4 4 Steps (QC): 4 12 Steps (QC): 88 Stairs Level Of Assist: 5 Picking up an Object (QC): 5 PT Plan Problem List Problem List: Activity Tolerance, Functional Strength, Safety, Balance, Gait, Transfer, Bed Mobility, ROM Treatment/Plan Treatment Plan: Continue Plan of Care Treatment Plan: Bed Mobility, Education, Functional Activity Madalyn, Functional Strength, Group Therapy, Gait, Safety, Therapeutic Exercise, Transfers Treatment Duration: Aug 05, 2016 Visits Per Week: 10-11 Minutes/Day (M-F): 60-90 Minutes/Day (Sat/Bryant): 15-30 Time/GCodes Time In: 805 Time Out: 850 Total Billed Treatment Time: 45 Total Billed Treatment 1 visit EX 45 min ADONAY MULLEN PT Jul 18, 2016 08:56
[2016-07-18] MEDS: DOCUSATE SODIUM 100 MG (COLACE) CAP PO SCH (09:00)
[2016-07-18] MEDS: DICLOFENAC 1% GEL 100 GM (VOLTAREN) TUBE TOP SCH ×4 (09:00→21:46)
[2016-07-18] MEDS: OMEGA 3 (FISH OIL) 1000 MG CAP PO SCH ×2 (09:00→09:29)
[2016-07-18] MEDS: POLYETHYLENE GLYCOL 17 GM (MIRALAX) PACK PO SCH (09:00)
[2016-07-18] MEDS: MAGNESIUM OXIDE (MAG-OX)400 MG TAB PO SCH ×2 (09:29→12:34)
[2016-07-18] MEDS: LORATADINE (CLARITIN) 10 MG TAB PO SCH ×2 (09:29→12:34)
[2016-07-18] MEDS: CARVEDILOL 6.25 MG (COREG) TAB PO SCH ×4 (09:29→21:46)
[2016-07-18] MEDS: CLOPIDOGREL 75 MG (PLAVIX) TABLET PO SCH ×2 (09:29→12:34)
[2016-07-18] MEDS: CEFDINIR 300 MG (OMNICEF) CAP PO SCH ×4 (09:29→21:46)
[2016-07-18] MEDS: GABAPENTIN 300 MG (NEURONTIN) CAP PO SCH ×4 (09:29→21:46)
[2016-07-18] MEDS: FAMOTIDINE 20 MG (PEPCID) TABLET PO SCH ×4 (09:29→21:46)
[2016-07-18] MEDS: LACTOBACILLUS Acidoph/Bulgar (LACTINEX/FLORANEX) TAB PO SCH ×3 (09:29→21:46)
--- NOTE | 2016-07-18 09:58 | Progress Note (SOAP) ---
Subjective Subjective/Events-last exam patient acting differently today. Patient has problem swallowing. Patient more confused. Blood tests and CAT scan done which are negative . Patient looking better this morning Objective Exam Vital Signs Date Time Temp Pulse Resp B/P Pulse Ox O2 Delivery O2 Flow Rate FiO2 07/18/16 06:37 75 139/86 97 Room Air 07/18/16 06:00 98.4 80 18 146/78 92 Room Air 07/17/16 18:04 97.7 78 20 142/81 98 Room Air I & O 07/18/16 07:00 Intake Total 1325 ml Output Total 2125 ml Balance -800 ml Capillary Refill : General Appearance: No Apparent Distress WD/WN Cachetic HEENT: Normal ENT Inspection Neck: Normal Inspection Respiratory: Chest Non Tender Lungs Clear Normal Breath Sounds No Accessory Muscle Use No Respiratory Distress Cardiovascular: Regular Rate, Rhythm No Murmur Gastrointestinal: non tender soft Other comments Laboratory Tests 07/18/16 04:50 Results Lab Laboratory Tests 07/18/16 04:50: Alanine Aminotransferase (ALT/SGPT) 13, Albumin 3.7, Alkaline Phosphatase 86, Anion Gap 11, Aspartate Amino Transf (AST/SGOT) 15, BUN/Creatinine Ratio 11, Blood Urea Nitrogen 16, Calcium Level 9.5, Carbon Dioxide Level 22, Chloride Level 102, Creatinine 1.48H, Estimat Glomerular Filtration Rate 48, Glucose Level 102, Hematocrit 34L, Hemoglobin 11.2L, INR Comment 2.3H, Mean Corpuscular Hemoglobin 26, Mean Corpuscular Hemoglobin Concent 33, Mean Corpuscular Volume 80, Mean Platelet Volume 10.2, Platelet Count 220, Potassium Level 3.8, Prothrombin Time 24.7H, Red Blood Count 4.31L, Red Cell Distribution Width 17.3H , Sodium Level 135, Total Bilirubin 0.3, Total Protein 6.6, White Blood Count 4.1L Assessment/Plan Assessment/Plan Assess & Plan/Chief Complaint . . weakness. Previous stroke. Sepsis. UTI. Hyponatremia. History of LV thrombus. Acute kidney injury. . 07/17/16 weakness. Sepsis history. Hyponatremia. CVA on left. Patient feeling better todayarea . 06/2616. Weakness. Confusion this morning. Trouble swallowing this morning blood tests CAT scan negative. To give some IV fluids Diagnosis/Problems: Clinical Quality Measures DVT/VTE Risk/Contraindication: Risk Factor Score Per Nursin RFS Level Per Nursing on Admit: 4+=Very High VAIBHAV ZAIDI DO Jul 18, 2016 09:58
--- NOTE | 2016-07-18 10:24 | Speech Therapy Daily Note ---
Speech Daily Progress Note Subjective The patient was laying in bed, eyes closed, upon entrance. The patient demonstrated lethargy, requiring maximum verbal prompting for appropriate alertness levels throughout the session. The patient was agreeable to the dysphagia therapy session, however, continued to require consistent encouragement for participation. The patient's RN was aware of the patient's altered mental status and was present for a portion of the session. To note: The patient completed a CT head on this date that was unremarkable. Objective Dysphagia Exercises: The patient demonstrated poor accuracy and completion of dysphagia exercises on this date regardless of maximum clinician verbal prompting and direct modeling. Limited participation was demonstrated, as frequent redirection to task was completed. The RN was present with morning medications and was concerned with the patient's alertness level for consumption. With the speech pathologist present, morning pills were attempted one at a time. The patient held the pill in his mouth, unable to elicit a swallow with maximum clinician verbal prompting. The pill was removed from the patient's oral cavity by the RN. The speech pathologist does not recommend further oral intake until an appropriate level of alertness is reached. Command Following: The patient was unable to follow simple commands with maximum clinician cueing, including direct modeling. The patient was intermittently oriented to name and location. Assessment Assessment Current Status: Regressing Treatment Plan Continue Plan of Care Speech Short Term Goals Short Term Goals Short Term Goals 1. The patient will demonstrate oral motor exercises with 90% accuracy, independently. 2. The patient will demonstrate 90% intelligible with functional phrases, independently. 3. The patient will demonstrate dysphagia exercises with 90% accuracy, independently. Time Frame-STG: Two Weeks Speech Residential Goals Residential Goals 1. The patient will demonstrate improved expressive communication for increased safety and function with ADL's. 2. The patient will tolerate the least restrictive diet without signs/symptoms of aspiration or laryngeal penetration. Time Frame: Four Weeks Comprehension: 6 Expression: 5 Social Interaction: 5 Problem Solvin Memory: 5 Speech-Plan Treatment Plan Speech Therapy Treatment Plan: Continue Plan of Care Treatment Duration: Aug 12, 2016 # of days/week Four to Five Visits Per Week: Four to Five Minutes/Day (M-F): 30-45 Rehab Potential: Fair Safety Risks/Education Teaching Recipient: Patient Teaching Methods: Demonstration, Handout, Discussion Response to Teaching: Unable to Return Demonstration, Unable to Comprehend Education Topics Provided: Dysphagia Exercises Time Speech Therapy Time In: :15 Speech Therapy Time Out: 09:45 Total Billed Time: 30 Billed Treatment Time 1, MARI SANTOS Jul 18, 2016 10:24
--- NOTE | 2016-07-18 12:21 | Occupational Ther Daily Note ---
OT Current Status-Daily Note Subjective Per nrsg prior to OT entering Pt's room-pt is lethargic and is having trouble with stating his name then reaching up to face and saying "wow". Nrsg stated that his vital signs were good, did call physician due to being concerned about change of medical status. OT entered room and stated pt's name and pt turned head toward JACOBS/L. Pt had slow response time acknowledging therapist. Pt did not state name though did turn to his name being called. Pt was able to recall his daughter's job and where it was then his son's name. Mental Status/Objective Functional [place] Measure 0=Not Assessed/NA 4=Minimal Assistance 1=Total Assistance 5=Supervision or Setup 2=Maximal Assistance 6=Modified [place] 3=Moderate Assistance 7=Complete [place] ADL-Treatment Functional [place] Measure 0=Not Assessed/NA 4=Minimal Assistance 1=Total Assistance 5=Supervision or Setup 2=Maximal Assistance 6=Modified [place] 3=Moderate Assistance 7=Complete IndependenceIRFPAI Quality Coding Scale 6 Independent with activity with or without an assistive device 5 Patient requires set up or clean up by helper. Patient completes activity by themselves 4 Supervision or touching assist (CGA). [place] provide cues , steadying assist 3 The helper provides less than half the effort to complete the activity 2 The helper provides more than half the effort to complete the activity 1 Dependent. The helper does all the effort to complete an activity 7 Patient refused to complete or attempt activity 9 The patient did not perform the activity before the current illness or injury 88 Not attempted due to Medical conditions or safety concerns Other Treatment Pt tolerated ROM to L UE. Massage to L UE to decrease tightness prior to and after PROM. Pt closed and opened his eyes throughout treatment and continued to say "wow" and touch his face. Pt's R UE was jerky with movements. Pt's R grasp was weak and could not sustain collections director more than 2 seconds. Therapist had nrsg come in to check on pt's pupil dilation (sluggish) and tracking (sluggish) . Pt had noticeable breaths 7 times in the first 20 seconds of a minute then chest did not expand for rest of minute, 3 consecutive times. Nrsg stated that they had contacted the physician again and he had ordered CAT scan stat. Pt in bed with HOB up, call light in reach. OT Short Term Goals Short Term Goals Time Frame: Jul 22, 2016 Bathing(FIM): 4 Upper Body Dressing(FIM): 4 Lower Body Dressing(FIM): 3 Toileting(FIM): 4 Toilet/Commode Transfer(FIM): 4 Shower Transfer(FIM): 4 (CGA) Additional Short Term Goals: 1-Demonstrate ADL Tasks, 2-Verbalize Understanding , 3-ImproveStrength/Madalyn 1=Demonstrate adherence to instructed precautions during ADL tasks. 2=Patient will verbalize/demonstrate understanding of assistive devices/ modifications for ADL. 3=Patient will improve strength/tolerance for activity to enable patient to perform ADL's. OT Residential Goals Residential Goals Time Frame: Aug 05, 2016 Eating (FIM): 6 Eating (QC): 6 Oral Hygiene (QC): 6 Grooming(FIM): 5 Bathing(FIM): 4 Shower/Bathe Self (QC): 4 Upper Body Dressing(FIM): 6 Upper Body Dressing (QC): 6 Lower Body Dressing(FIM): 5 Lower Body Dressing (QC): 5 On/Off Footwear (QC): 4 Toileting Hygiene (QC): 5 Toilet/Commode Transfer(FIM): 5 Toilet/Commode Transfer (QC): 5 Shower Transfer(FIM): 5 Comprehension(FIM): 6 Expression (FIM): 5 Social Interaction(FIM): 5 Problem Solving(FIM): 5 Memory(FIM): 5 Additional Goals: 1-Demonstrate ADL Tasks, 2-Verbalize Understanding, 3- ImproveStrength/Madalyn 1=Demonstrate adherence to instructed precautions during ADL tasks. 2=Patient will verbalize/demonstrate understanding of assistive devices/ modifications for ADL. 3=Patient will improve strength/tolerance for activity to enable patient to perform ADL's. OT Education/Plan Problem List/Assessment Pt to benefit from skilled OT intervention for ADL training, transfers, ROM/ strengthening, and safety education to maximize level of independence and allow safe discharge. Discharge Recommendations Plan/Recommendations: Continue POC Treatment Plan/Plan of Care Patient would benefit from OT for education, treatment and training to promote independence in ADL's, mobility, safety and/or upper extremity function for ADL' s. Plan of Care: ADL Retraining, Functional Mobility, Group Exercise/Act as Ind, Orthotic Fitting/Training, UE Funct Exercise/Act, UE Neuromus Re-Ed/Coord Treatment Duration: Aug 05, 2016 Visits Per Week: 10-11 Minutes/Day (M-F): 60-90 Minutes/Day (Sat/Bryant): PRN Agreement: Yes Rehab Potential: Fair Time/GCodes Start Time: 07:00 Stop Time: 07:45 Total Time Billed (hr/min): 45 Billed Treatment Time 1 visit-FA 3 (45 min) TULIO BERGMAN Jul 18, 2016 12:21
[2016-07-18] MEDS: FLUTICASONE NASAL SPRAY (FLONASE) 16 GM BTL NS SCH (12:42)
[2016-07-18] MEDS: D5 NS 1000 ML IV SOLUTION 1,000 ML IV SCH ×2 (12:42→21:46)
[2016-07-18 12:43] LABS: BILIRUBIN,URINE NEGATIVE (NEGATIVE); KETONES,URINE NEGATIVE (NEGATIVE); LEUKOCYTE ESTERASE ,URINE NEGATIVE (NEGATIVE); NITRITE,URINE NEGATIVE (NEGATIVE); PH,URINE 8 (5-9); PROTEIN,URINE NEGATIVE (NEGATIVE); UROBILINOGEN,URINE NORMAL (NORMAL)
[2016-07-18 12:51] LABS: SQUAMOUS EPITHELIAL CELL,UR RARE /HPF
--- NOTE | 2016-07-18 13:41 | Occupational Ther Daily Note ---
OT Current Status-Daily Note Subjective Pt lying in bed with eyes open. Nrsg present in room getting ready to assist pt to eat lunch. Pt appeared more alert this afternoon than this morning. OT attempting to work on feeding in bed. Mental Status/Objective Functional [place] Measure 0=Not Assessed/NA 4=Minimal Assistance 1=Total Assistance 5=Supervision or Setup 2=Maximal Assistance 6=Modified [place] 3=Moderate Assistance 7=Complete [place] ADL-Treatment Functional [place] Measure 0=Not Assessed/NA 4=Minimal Assistance 1=Total Assistance 5=Supervision or Setup 2=Maximal Assistance 6=Modified [place] 3=Moderate Assistance 7=Complete IndependenceIRFPAI Quality Coding Scale 6 Independent with activity with or without an assistive device 5 Patient requires set up or clean up by helper. Patient completes activity by themselves 4 Supervision or touching assist (CGA). [place] provide cues , steadying assist 3 The helper provides less than half the effort to complete the activity 2 The helper provides more than half the effort to complete the activity 1 Dependent. The helper does all the effort to complete an activity 7 Patient refused to complete or attempt activity 9 The patient did not perform the activity before the current illness or injury 88 Not attempted due to Medical conditions or safety concerns Other Treatment Pt was willing to eat lunch and work with OT. OT speared food with fork then guided pt's hand to fork handle assisted with closing hand around handle and assist to guide to mouth. Pt chewed 5x's then had difficulty with dentures and spit food out of mouth. OT then scooped mashed potatoes and gravy onto spoon then had to assist pt to bring to mouth. Pt unable to motor plan how to bring utensil to mouth, could place utensil onto tray then slow to motor plan to release. Pt was able to move tongue around mouth to move food but did not masticate with teeth. Pt stated that he just wanted to sleep. Pt has demonstrated a change in status, decreased motoric and problem solving skills. Physician to place therapies on hold for this afternoon due to change of status. OT Short Term Goals Short Term Goals Time Frame: Jul 22, 2016 Bathing(FIM): 4 Upper Body Dressing(FIM): 4 Lower Body Dressing(FIM): 3 Toileting(FIM): 4 Toilet/Commode Transfer(FIM): 4 Shower Transfer(FIM): 4 (CGA) Additional Short Term Goals: 1-Demonstrate ADL Tasks, 2-Verbalize Understanding , 3-ImproveStrength/Madalyn 1=Demonstrate adherence to instructed precautions during ADL tasks. 2=Patient will verbalize/demonstrate understanding of assistive devices/ modifications for ADL. 3=Patient will improve strength/tolerance for activity to enable patient to perform ADL's. OT Server Administrator Goals Long-Term Goals Time Frame: Aug 05, 2016 Eating (FIM): 6 Eating (QC): 6 Oral Hygiene (QC): 6 Grooming(FIM): 5 Bathing(FIM): 4 Shower/Bathe Self (QC): 4 Upper Body Dressing(FIM): 6 Upper Body Dressing (QC): 6 Lower Body Dressing(FIM): 5 Lower Body Dressing (QC): 5 On/Off Footwear (QC): 4 Toileting Hygiene (QC): 5 Toilet/Commode Transfer(FIM): 5 Toilet/Commode Transfer (QC): 5 Shower Transfer(FIM): 5 Comprehension(FIM): 6 Expression (FIM): 5 Social Interaction(FIM): 5 Problem Solving(FIM): 5 Memory(FIM): 5 Additional Goals: 1-Demonstrate ADL Tasks, 2-Verbalize Understanding, 3- ImproveStrength/Madalyn 1=Demonstrate adherence to instructed precautions during ADL tasks. 2=Patient will verbalize/demonstrate understanding of assistive devices/ modifications for ADL. 3=Patient will improve strength/tolerance for activity to enable patient to perform ADL's. OT Education/Plan Problem List/Assessment Pt to benefit from skilled OT intervention for ADL training, transfers, ROM/ strengthening, and safety education to maximize level of independence and allow safe discharge. Discharge Recommendations Plan/Recommendations: Continue POC Treatment Plan/Plan of Care Patient would benefit from OT for education, treatment and training to promote independence in ADL's, mobility, safety and/or upper extremity function for ADL' s. Plan of Care: ADL Retraining, Functional Mobility, Group Exercise/Act as Ind, Orthotic Fitting/Training, UE Funct Exercise/Act, UE Neuromus Re-Ed/Coord Treatment Duration: Aug 05, 2016 Visits Per Week: 10-11 Minutes/Day (M-F): 60-90 Minutes/Day (Sat/Bryant): PRN Agreement: Yes Rehab Potential: Fair Time/GCodes Start Time: 13:00 Stop Time: 13:10 Total Time Billed (hr/min): 10 Billed Treatment Time 1 visit-FA 1 (10 min) TULIO BERGMAN Jul 18, 2016 13:41
--- NOTE | 2016-07-18 15:01 | Physical Therapy Progress Note ---
Therapy Progress Note Pt was not seen for PM tx due to pt being on physician imposed medical hold. EZRA CAIN ADMITTING COORDINATOR Jul 18, 2016 15:01
[2016-07-18 17:54] VITALS: BP 168/83
[2016-07-18] MEDS: warFARin 5 MG (COUMADIN) TAB PO SCH (18:39)
[2016-07-18] MEDS: MELATONIN 3 MG TABLET PO SCH (21:00)
[2016-07-18] MEDS: ATORVASTATIN 40 MG (LIPITOR) TABLET PO SCH ×2 (21:45→21:46)
[2016-07-19 06:00] VITALS: BP 169/73
[2016-07-19 06:41] LABS: BASOPHILS % (AUTO) 1 % (0-10); EOSINOPHILS # (AUTO) 0.1 10^3/uL (0.0-0.3); EOSINOPHILS % (AUTO) 2 % (0-10); LYMPHOCYTES # (AUTO) 0.7 X 10^3 (1.0-4.0); LYMPHOCYTES % (AUTO) 17 % (12-44); MEAN CORPUSCULAR HEMOGLOBIN 26 PG (25-34); MEAN CORPUSCULAR HGB CONC 33 G/DL (32-36); MEAN CORPUSCULAR VOLUME 79 FL (80-99); MEAN PLATELET VOLUME 9.4 FL (7.4-10.4); MONOCYTES # (AUTO) 0.4 X 10^3 (0.0-1.0); MONOCYTES % (AUTO) 9 % (0-12); NEUTROPHILS # (AUTO) 3.1 X 10^3 (1.8-7.8); NEUTROPHILS % (AUTO) 71 % (42-75); PLATELET COUNT 214 10^3/uL (130-400); RED BLOOD COUNT 4.85 10^6/uL (4.35-5.85); RED CELL DISTRIBUTION WIDTH 17.6 % (10.0-14.5); WHITE BLOOD COUNT 4.3 10^3/uL (4.3-11.0)
[2016-07-19 06:55] LABS: BAND NEUTROPHILS 0 %; BASOPHILS % (MANUAL) 1 %; EOSINOPHILS % (MANUAL) 2 %; LYMPHOCYTES % (MANUAL) 19 %; NEUTROPHILS % (MANUAL) 71 %; REACTIVE LYMPHOCYTES 2 %
[2016-07-19 06:56] LABS: ANISOCYTOSIS SLIGHT; CRENATED RBC SLIGHT; POIKILOCYTOSIS SLIGHT
[2016-07-19] MEDS: FERROUS SULF 325 MG (IRON) TAB PO SCH ×2 (07:00→17:43)
[2016-07-19 07:03] LABS: INR 2.7 (0.8-1.4); PROTHROMBIN TIME PATIENT 28.5 SEC (12.2-14.7)
[2016-07-19 07:11] LABS: CALCIUM 9.7 MG/DL (8.5-10.1); CREATININE SERUM 1.45 MG/DL (0.60-1.30)
--- NOTE | 2016-07-19 08:12 | Progress Note (SOAP) ---
Subjective Subjective/Events-last exam patient more alert today. Patient more observant. Patient has improved since yesterday. Objective Exam Vital Signs Date Time Temp Pulse Resp B/P Pulse Ox O2 Delivery O2 Flow Rate FiO2 07/19/16 06:00 98.3 81 20 169/73 98 Room Air 07/18/16 17:54 97.2 83 14 168/83 99 I & O 07/19/16 07:00 Intake Total 1520 ml Balance 1520 ml Capillary Refill : General Appearance: No Apparent Distress WD/WN Results Lab Laboratory Tests 07/19/16 06:32 Laboratory Tests 07/18/16 11:00: Stool Occult Blood Immunoassay NEGATIVE 07/18/16 12:35: Urine Bacteria NEGATIVE, Urine Bilirubin NEGATIVE, Urine Casts NONE, Urine Clarity CLEAR, Urine Color YELLOW, Urine Crystals NONE, Urine Culture Indicated NO, Urine Glucose (UA) NEGATIVE, Urine Ketones NEGATIVE, Urine Leukocyte Esterase NEGATIVE, Urine Mucus NEGATIVE, Urine Nitrite NEGATIVE, Urine Protein NEGATIVE, Urine RBC NONE, Urine RBC (Auto) NEGATIVE, Urine Specific [place] 1.015L, Urine Squamous Epithelial Cells RARE, Urine Urobilinogen NORMAL, Urine WBC NONE, Urine pH 8 07/19/16 06:32: Anion Gap 12, Anisocytosis SLIGHT, BUN/Creatinine Ratio 10, Band Neutrophils 0, Basophils # (Auto) 0.0, Basophils % (Manual) 1, Basophils (%) (Auto) 1, Blood Urea Nitrogen 14, Calcium Level 9.7, Carbon Dioxide Level 21, Chloride Level 109H, Creatinine 1.45H, Crenated Cell SLIGHT, Elliptocytes SLIGHT, Eosinophils # (Auto) 0.1, Eosinophils % (Manual) 2, Eosinophils (%) (Auto) 2, Estimat Glomerular Filtration Rate 49, Glucose Level 118H, Hematocrit 38L, Hemoglobin 12.8L, INR Comment 2.7H, Lymphocytes # (Auto) 0.7L, Lymphocytes % (Manual) 19, Lymphocytes (%) (Auto) 17, Mean Corpuscular Hemoglobin 26, Mean Corpuscular Hemoglobin Concent 33, Mean Corpuscular Volume 79L, Mean Platelet Volume 9.4, Monocytes # (Auto) 0.4, Monocytes % (Manual) 5, Monocytes (%) (Auto) 9, Neutrophils # (Auto) 3.1, Neutrophils % (Manual) 71, Neutrophils (%) (Auto) 71, Platelet Count 214, Poikilocytosis SLIGHT, Potassium Level 4.0, Prothrombin Time 28.5H, Reactive Lymphocytes 2, Red Blood Count 4.85, Red Cell Distribution Width 17.6H, Sodium Level 142, White Blood Count 4.3 Assessment/Plan Assessment/Plan Assess & Plan/Chief Complaint . . weakness. Previous stroke. Sepsis. UTI. Hyponatremia. History of LV thrombus. Acute kidney injury. . 07/17/16 weakness. Sepsis history. Hyponatremia. CVA on left. Patient feeling better todayarea . 06/2616. Weakness. Confusion this morning. Trouble swallowing this morning blood tests CAT scan negative. To give some IV fluids. . 07/19/16. Weakness less. Confusion better. CAT scan of the head negative. Previous stroke. Sepsis. UTI. Hyponatremia Diagnosis/Problems: Clinical Quality Measures DVT/VTE Risk/Contraindication: Risk Factor Score Per Nursin RFS Level Per Nursing on Admit: 4+=Very High VAIBHAV ZAIDI DO Jul 19, 2016 08:12
--- NOTE | 2016-07-19 08:52 | PM & R (SOAP) Progress Note ---
Subjective Subjective/Events-last exam Patient was seen in his room this Discussed case with RN and Therapy today Patient doing better and more responsive Follows simple commands and verbal Appreciate Dr Khan notes and orders and current labs Stool for OB negaitive Serum Creatinine stable Patient had IV fluids yesterday and doing better with that and D./Cing of Baclofen CT Head Negative for new event Objective Exam Last Set of Vital Signs Vital Signs Date Time Temp Pulse Resp B/P Pulse Ox O2 Delivery O2 Flow Rate FiO2 07/19/16 06:00 98.3 81 20 169/73 98 Room Air Capillary Refill : I&O Intake and Output 07/19/16 00:00 Intake Total 1520 ml Output Total 875 ml Balance 645 ml Intake Oral 520 ml IV Total 1000 ml Output Urine Total 875 ml # Voids 3 # Bowel Movements 3 General: Alert, Oriented X3, Cooperative, No Acute Distress HEENT: Atraumatic, PERRLA, EOMI, Mucous Memb Moist/[place] Neck: Supple, No JVD Lungs: Clear to Auscultation Heart: Regular Rate Abdomen: Normal Bowel Sounds, Soft, No Tenderness Extremities: No Edema Neuro: Other (Left HP and dysarthria with increased tone Left lower extremity and as per above More lethargic as per above and non verbal) Results Lab Laboratory Tests 07/17/16 05:22: INR Comment 2.2H, Prothrombin Time 24.0H 07/18/16 04:50: INR Comment 2.3H, Prothrombin Time 24.7H, Alanine Aminotransferase (ALT/SGPT) 13 , Albumin 3.7, Alkaline Phosphatase 86, Anion Gap 11, Aspartate Amino Transf ( AST/SGOT) 15, BUN/Creatinine Ratio 11, Blood Urea Nitrogen 16, Calcium Level 9.5 , Carbon Dioxide Level 22, Chloride Level 102, Creatinine 1.48H, Estimat Glomerular Filtration Rate 48, Glucose Level 102, Hematocrit 34L, Hemoglobin 11.2L, Mean Corpuscular Hemoglobin 26, Mean Corpuscular Hemoglobin Concent 33, Mean Corpuscular Volume 80, Mean Platelet Volume 10.2, Platelet Count 220, Potassium Level 3.8, Red Blood Count 4.31L, Red Cell Distribution Width 17.3H, Sodium Level 135, Total Bilirubin 0.3, Total Protein 6.6, White Blood Count 4.1L 07/18/16 11:00: Stool Occult Blood Immunoassay NEGATIVE 07/18/16 12:35: Urine Bacteria NEGATIVE, Urine Bilirubin NEGATIVE, Urine Casts NONE, Urine Clarity CLEAR, Urine Color YELLOW, Urine Crystals NONE, Urine Culture Indicated NO, Urine Glucose (UA) NEGATIVE, Urine Ketones NEGATIVE, Urine Leukocyte Esterase NEGATIVE, Urine Mucus NEGATIVE, Urine Nitrite NEGATIVE, Urine Protein NEGATIVE, Urine RBC NONE, Urine RBC (Auto) NEGATIVE, Urine Specific [place] 1.015L, Urine Squamous Epithelial Cells RARE, Urine Urobilinogen NORMAL, Urine WBC NONE, Urine pH 8 07/19/16 06:32: Anion Gap 12, Anisocytosis SLIGHT, BUN/Creatinine Ratio 10, Band Neutrophils 0, Basophils # (Auto) 0.0, Basophils % (Manual) 1, Basophils (%) (Auto) 1, Blood Urea Nitrogen 14, Calcium Level 9.7, Carbon Dioxide Level 21, Chloride Level 109H, Creatinine 1.45H, Crenated Cell SLIGHT, Elliptocytes SLIGHT, Eosinophils # (Auto) 0.1, Eosinophils % (Manual) 2, Eosinophils (%) (Auto) 2, Estimat Glomerular Filtration Rate 49, Glucose Level 118H, Hematocrit 38L, Hemoglobin 12.8L, INR Comment 2.7H, Lymphocytes # (Auto) 0.7L, Lymphocytes % (Manual) 19, Lymphocytes (%) (Auto) 17, Mean Corpuscular Hemoglobin 26, Mean Corpuscular Hemoglobin Concent 33, Mean Corpuscular Volume 79L, Mean Platelet Volume 9.4, Monocytes # (Auto) 0.4, Monocytes % (Manual) 5, Monocytes (%) (Auto) 9, Neutrophils # (Auto) 3.1, Neutrophils % (Manual) 71, Neutrophils (%) (Auto) 71, Platelet Count 214, Poikilocytosis SLIGHT, Potassium Level 4.0, Prothrombin Time 28.5H, Reactive Lymphocytes 2, Red Blood Count 4.85, Red Cell Distribution Width 17.6H, Sodium Level 142, White Blood Count 4.3 Assessment/Plan Assessment General debil secondary to UTI with sepsis treated OSH Change in mental status w/u in progress-will d/c baclofen-and now improved s/p 1 lter of IVFS 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
[2016-07-19] MEDS: DICLOFENAC 1% GEL 100 GM (VOLTAREN) TUBE TOP SCH ×4 (09:00→20:45)
[2016-07-19] MEDS: POLYETHYLENE GLYCOL 17 GM (MIRALAX) PACK PO SCH (09:00)
[2016-07-19] MEDS: DOCUSATE SODIUM 100 MG (COLACE) CAP PO SCH (09:00)
[2016-07-19] MEDS: OMEGA 3 (FISH OIL) 1000 MG CAP PO SCH (09:00)
--- NOTE | 2016-07-19 09:11 | Occupational Ther Daily Note ---
OT Current Status-Daily Note Subjective Pt in bed, alert. Pt agrees to treatment this am. Mental Status/Objective Functional [place] Measure 0=Not Assessed/NA 4=Minimal Assistance 1=Total Assistance 5=Supervision or Setup 2=Maximal Assistance 6=Modified [place] 3=Moderate Assistance 7=Complete [place] ADL-Treatment Pt supine to sit with moderate assistance. Pt is incontinent of bladder, assist for hygiene. Transfer EOB to w/c with moderate assistance to right side, skilled cues for technique and safety. Sponge bath completed. Pt able to wash left UE, chest, abdomen, bilateral upper legs, and levon area. Assist required for right UE, bilateral lower legs/feet, and buttocks. Don pullover shirt with maximal assistance. Pt required max assist to don jacket. Pt dependent to don Depends, pants, socks, shoes and left AFO. Moderate assistance required for balance during pant hike. Increased time for bathing/dressing tasks. Pt sat at sink for grooming tasks. Pt washed face with set up. Combed hair with SBA. Pt required assist to rinse dentures. Used right hand to apply [place] to dentures. Pt able to place dentures in mouth without assistance. Pt sitting in w /c after session for speech therapist. All needs met. Functional [place] Measure 0=Not Assessed/NA 4=Minimal Assistance 1=Total Assistance 5=Supervision or Setup 2=Maximal Assistance 6=Modified [place] 3=Moderate Assistance 7=Complete IndependenceIRFPAI Quality Coding Scale 6 Independent with activity with or without an assistive device 5 Patient requires set up or clean up by helper. Patient completes activity by themselves 4 Supervision or touching assist (CGA). [place] provide cues , steadying assist 3 The helper provides less than half the effort to complete the activity 2 The helper provides more than half the effort to complete the activity 1 Dependent. The helper does all the effort to complete an activity 7 Patient refused to complete or attempt activity 9 The patient did not perform the activity before the current illness or injury 88 Not attempted due to Medical conditions or safety concerns Bathing (FIM): 3 Upper Body (FIM): 2 Lower Body Dressing (FIM): 1 OT Short Term Goals Short Term Goals Time Frame: Jul 22, 2016 Bathing(FIM): 4 Upper Body Dressing(FIM): 4 Lower Body Dressing(FIM): 3 Toileting(FIM): 4 Toilet/Commode Transfer(FIM): 4 Shower Transfer(FIM): 4 (CGA) Additional Short Term Goals: 1-Demonstrate ADL Tasks, 2-Verbalize Understanding , 3-ImproveStrength/Madalyn 1=Demonstrate adherence to instructed precautions during ADL tasks. 2=Patient will verbalize/demonstrate understanding of assistive devices/ modifications for ADL. 3=Patient will improve strength/tolerance for activity to enable patient to perform ADL's. OT Community Board Member Goals Community Board Member Goals Time Frame: Aug 05, 2016 Eating (FIM): 6 Eating (QC): 6 Oral Hygiene (QC): 6 Grooming(FIM): 5 Bathing(FIM): 4 Shower/Bathe Self (QC): 4 Upper Body Dressing(FIM): 6 Upper Body Dressing (QC): 6 Lower Body Dressing(FIM): 5 Lower Body Dressing (QC): 5 On/Off Footwear (QC): 4 Toileting Hygiene (QC): 5 Toilet/Commode Transfer(FIM): 5 Toilet/Commode Transfer (QC): 5 Shower Transfer(FIM): 5 Comprehension(FIM): 6 Expression (FIM): 5 Social Interaction(FIM): 5 Problem Solving(FIM): 5 Memory(FIM): 5 Additional Goals: 1-Demonstrate ADL Tasks, 2-Verbalize Understanding, 3- ImproveStrength/Madalyn 1=Demonstrate adherence to instructed precautions during ADL tasks. 2=Patient will verbalize/demonstrate understanding of assistive devices/ modifications for ADL. 3=Patient will improve strength/tolerance for activity to enable patient to perform ADL's. OT Education/Plan Problem List/Assessment Pt to benefit from skilled OT intervention for ADL training, transfers, ROM/ strengthening, and safety education to maximize level of independence and allow safe discharge. Discharge Recommendations Plan/Recommendations: Continue POC Treatment Plan/Plan of Care Patient would benefit from OT for education, treatment and training to promote independence in ADL's, mobility, safety and/or upper extremity function for ADL' s. Plan of Care: ADL Retraining, Functional Mobility, Group Exercise/Act as Ind, Orthotic Fitting/Training, UE Funct Exercise/Act, UE Neuromus Re-Ed/Coord Treatment Duration: Aug 05, 2016 Visits Per Week: 10-11 Minutes/Day (M-F): 60-90 Minutes/Day (Sat/Bryant): PRN Agreement: Yes Rehab Potential: Fair Time/GCodes Start Time: 08:00 Stop Time: 09:00 Total Time Billed (hr/min): 60 Billed Treatment Time 1 visit, ADLx4(60minutes) RASHIDA ORTIZ OT Jul 19, 2016 09:11
--- NOTE | 2016-07-19 09:22 | Speech Therapy Daily Note ---
Speech Daily Progress Note Subjective The patient was seated upright in wheelchair upon entrance. The patient's breakfast tray was present which included scrambled eggs, water, and cream of wheat. Due to the patient's previous lethargy, a re-evaluation of swallowing will occur during this date's visit. The patient is agreeable to participate in the dysphagia session on this date. Objective Diet Analysis/Tolerance: - Thin Liquids: Cup Sip: No signs/symptoms of aspiration were demonstrated with multiple, small thin liquid boluses. The patient's vocal quality remained clear. Straw: The patient demonstrated an immediate throat clear and wet vocal quality following bolus trials of thin liquid via straw, consistently. - Puree: No signs/symptoms of aspiration were demonstrated with multiple teaspoons of puree consistency. The patient's vocal quality remained clear. -Mechanical Soft: Slightly increased mastication time was noted with mechanical soft consistencies (scrambled eggs). No signs/symptoms of aspiration were demonstrated, however, due to the increased mastication time, the clinician is recommending the avoidance of solid consistencies to reduce fatigue/lethargy throughout meals. Recommendations: 1. Mechanical soft diet with thin liquids, as tolerated. 2. NO straws. 3. Small bites and sips. 4. Alert and upright for all PO. 5. Crush medications and place in puree consistency for administration. 6. Continue dysphagia exercises, as directed. Communication Comprehension: 4 Expression: 4 Social Cognition Social Interaction: 4 Problem Solvin Memory: 2 Speech Short Term Goals Short Term Goals Short Term Goals 1. The patient will demonstrate oral motor exercises with 90% accuracy, independently. 2. The patient will demonstrate 90% intelligible with functional phrases, independently. 3. The patient will demonstrate dysphagia exercises with 90% accuracy, independently. Time Frame-STG: Two Weeks Speech Longterm Goals Advisory Intern Goals 1. The patient will demonstrate improved expressive communication for increased safety and function with ADL's. 2. The patient will tolerate the least restrictive diet without signs/symptoms of aspiration or laryngeal penetration. Progressing. (07/19/16) Time Frame: Four Weeks Comprehension: 6 Expression: 5 Social Interaction: 5 Problem Solvin Memory: 5 Speech-Plan Treatment Plan Speech Therapy Treatment Plan: Continue Plan of Care Treatment Duration: Aug 12, 2016 # of days/week Four to Five Visits Per Week: Four to Five Minutes/Day (M-F): 30-45 Rehab Potential: Fair Safety Risks/Education Teaching Recipient: Patient Teaching Methods: Demonstration, Discussion Response to Teaching: Return Demonstration, Reinforcement Needed Education Topics Provided: Swallowing Strategies, Recommendations, Signs/Symptoms of Aspiration Time Speech Therapy Time In: 09:00 Speech Therapy Time Out: 09:30 Total Billed Time: 30 Billed Treatment Time 1, MARI SANTOS Jul 19, 2016 09:22
[2016-07-19] MEDS: CLOPIDOGREL 75 MG (PLAVIX) TABLET PO SCH (10:12)
[2016-07-19] MEDS: LACTOBACILLUS Acidoph/Bulgar (LACTINEX/FLORANEX) TAB PO SCH ×2 (10:12→20:45)
[2016-07-19] MEDS: GABAPENTIN 300 MG (NEURONTIN) CAP PO SCH ×3 (10:12→20:45)
[2016-07-19] MEDS: CARVEDILOL 6.25 MG (COREG) TAB PO SCH ×2 (10:13→20:45)
[2016-07-19] MEDS: CEFDINIR 300 MG (OMNICEF) CAP PO SCH ×2 (10:13→20:45)
[2016-07-19] MEDS: FAMOTIDINE 20 MG (PEPCID) TABLET PO SCH ×2 (10:13→20:45)
[2016-07-19] MEDS: FLUTICASONE NASAL SPRAY (FLONASE) 16 GM BTL NS SCH (10:13)
[2016-07-19] MEDS: LORATADINE (CLARITIN) 10 MG TAB PO SCH (10:13)
[2016-07-19] MEDS: MAGNESIUM OXIDE (MAG-OX)400 MG TAB PO SCH (10:13)
--- NOTE | 2016-07-19 10:15 | Physical Therapy Daily Note ---
PT Daily Note-Current Subjective Patient in chair pre tx, agrees to PT, pleasant and cooperative, he has a much harder time speaking today. Pain Numeric Pain Scale: 0-No Pain Appearance Patient in wheelchair post tx with nurse call, phone, tray, all needs met. Patient alert today. Mental Status Patient Orientation: Person, Place, Situation Transfers Functional [place] Measure 0=Not Assessed/NA 4=Minimal Assistance 1=Total Assistance 5=Supervision or Setup 2=Maximal Assistance 6=Modified [place] 3=Moderate Assistance 7=Complete IndependenceIRFPAI Quality Coding Scale 6 Independent with activity with or without an assistive device 5 Patient requires set up or clean up by helper. Patient completes activity by themselves 4 Supervision or touching assist (CGA). [place] provide cues , steadying assist 3 The helper provides less than half the effort to complete the activity 2 The helper provides more than half the effort to complete the activity 1 Dependent. The helper does all the effort to complete an activity 7 Patient refused to complete or attempt activity 9 The patient did not perform the activity before the current illness or injury 88 Not attempted due to Medical conditions or safety concerns Transfers (B, C, W/C) (FIM): 3 Sit to/from Stand: 3 Bed to/from Chair: 3 Patient much weaker today, cannot bear nearly as much weight on his left leg. Gait Training Attempted gait training but he could not bear enough weight on left leg, it would collapse when taking a step with the right leg. Exercises Seated Therapy Exercises: Long arc quads, Hip flexion Seated Reps: 20 NuStep Minutes: 15 NuStep Workload: 4 Treatments functional strengthening, transfer training, ambulation Assessment Current Status: Poor Progress Patient much weaker, but alert. PT Short Term Goals Short Term Goals Time Frame: Jul 22, 2016 Gait (FIM): 2 Gait Distance Comment: 70' Gait Level of Assist: 5 Gait Assistive Device: Cane Large Base Quad Wheelchair Distance: 125' PT Plastic Process Technician Goals Plastic Process Technician Goals PT Plastic Process Technician Goals Time Frame: Aug 05, 2016 Transfers (B,C,W/C) (FIM): 6 Sit to Lying (QC): 6 Lying-Sitting on Side/Bed(QC): 6 Sit to Stand (QC): 6 Rollin Roll Left to Right (QC): 6 Chair/[id number] Xfer(QC): 6 Car Transfer (QC): 4 Gait (FIM): 6 Distance: 150' Walk 10 feet (QC): 6 Walk 10ft-Uneven Surface(QC): 6 Walk 50ft with 2 Turns (QC): 6 Walk 150 ft (QC): 6 Gait Assistive Device: Cane Large Base Quad Stairs (FIM): 2 # of Steps: 4 1 Step (curb) (QC): 4 4 Steps (QC): 4 12 Steps (QC): 88 Stairs Level Of Assist: 5 Picking up an Object (QC): 5 PT Plan Problem List Problem List: Activity Tolerance, Functional Strength, Safety, Balance, Gait, Transfer, Bed Mobility, ROM Treatment/Plan Treatment Plan: Continue Plan of Care Treatment Plan: Bed Mobility, Education, Functional Activity Madalyn, Functional Strength, Group Therapy, Gait, Safety, Therapeutic Exercise, Transfers Treatment Duration: Aug 05, 2016 Visits Per Week: 10-11 Minutes/Day (M-F): 60-90 Minutes/Day (Sat/Bryant): 15-30 Safety Risks/Education Patient Education: Gait Training, Transfer Techniques, Safety Issues Teaching Recipient: Patient Teaching Methods: Demonstration, Discussion Response to Teaching: Reinforcement Needed Time/GCodes Time In: 930 Time Out: 1015 Total Billed Treatment Time: 45 Total Billed Treatment 1 visit EX 30 min FA 15 min ADONAY MULLEN PT Jul 19, 2016 10:15
[2016-07-19] MEDS: D5 NS 1000 ML IV SOLUTION 1,000 ML IV SCH (10:27)
--- NOTE | 2016-07-19 14:52 | Therapy Group Daily Note ---
Therapy Daily Group Note Patient Education Topic Exercises, Other List Below (Education on Arthritis, ARU description and expectations) Exercises LE Seated Exercise, UE Exercise Other/Notes Pt transported to [facility] where he participated socially by introducing self, city currently living in, and describing what he does for exercise. Pt was able to correctly respond back when asked questions. Pt demonstrated memory/recall when matching different pictures. Pt transported back to room and was transferred to recliner. Call light in hand. All needs met. Start Time: 13:00 Stop Time: 14:30 Total Billed Treatment Time: 90 Total Billed Treatment 1-GRP TULIO BERGMAN Jul 19, 2016 14:51
[2016-07-19] MEDS: warFARin 5 MG (COUMADIN) TAB PO SCH (17:43)
[2016-07-19 17:59] VITALS: BP 159/92
[2016-07-19] MEDS: ATORVASTATIN 40 MG (LIPITOR) TABLET PO SCH (20:44)
[2016-07-19] MEDS: MELATONIN 3 MG TABLET PO SCH (20:45)
[2016-07-20] MEDS: D5 NS 1000 ML IV SOLUTION 1,000 ML IV SCH ×2 (04:34→05:00)
[2016-07-20 05:24] LABS: MEAN PLATELET VOLUME 9.3 FL (7.4-10.4); RED BLOOD COUNT 4.32 10^6/uL (4.35-5.85); RED CELL DISTRIBUTION WIDTH 17.4 % (10.0-14.5)
[2016-07-20 05:32] LABS: INR 3.1 (0.8-1.4); PROTHROMBIN TIME PATIENT 32.2 SEC (12.2-14.7)
[2016-07-20 05:46] LABS: CALCIUM 9.3 MG/DL (8.5-10.1); CREATININE SERUM 1.31 MG/DL (0.60-1.30); POTASSIUM 3.7 MMOL/L (3.6-5.0)
[2016-07-20 06:00] VITALS: BP 145/80
[2016-07-20] MEDS: FERROUS SULF 325 MG (IRON) TAB PO SCH ×2 (06:33→16:12)
[2016-07-20] MEDS: DOCUSATE SODIUM 100 MG (COLACE) CAP PO SCH (09:00)
[2016-07-20] MEDS: POLYETHYLENE GLYCOL 17 GM (MIRALAX) PACK PO SCH (09:00)
[2016-07-20] MEDS: CLOPIDOGREL 75 MG (PLAVIX) TABLET PO SCH (09:09)
[2016-07-20] MEDS: LORATADINE (CLARITIN) 10 MG TAB PO SCH (09:09)
[2016-07-20] MEDS: LACTOBACILLUS Acidoph/Bulgar (LACTINEX/FLORANEX) TAB PO SCH ×2 (09:09→21:02)
[2016-07-20] MEDS: GABAPENTIN 300 MG (NEURONTIN) CAP PO SCH ×3 (09:09→21:02)
[2016-07-20] MEDS: OMEGA 3 (FISH OIL) 1000 MG CAP PO SCH (09:09)
[2016-07-20] MEDS: MAGNESIUM OXIDE (MAG-OX)400 MG TAB PO SCH (09:10)
[2016-07-20] MEDS: CARVEDILOL 6.25 MG (COREG) TAB PO SCH ×2 (09:10→21:02)
[2016-07-20] MEDS: FAMOTIDINE 20 MG (PEPCID) TABLET PO SCH ×2 (09:10→21:03)
[2016-07-20] MEDS: FLUTICASONE NASAL SPRAY (FLONASE) 16 GM BTL NS SCH (09:11)
[2016-07-20] MEDS: DICLOFENAC 1% GEL 100 GM (VOLTAREN) TUBE TOP SCH ×4 (09:11→21:02)
--- NOTE | 2016-07-20 12:04 | Physical Therapy Daily Note ---
PT Daily Note-Current Subjective Pt agreeable to treatment. No issues. Transfers Functional [place] Measure 0=Not Assessed/NA 4=Minimal Assistance 1=Total Assistance 5=Supervision or Setup 2=Maximal Assistance 6=Modified [place] 3=Moderate Assistance 7=Complete IndependenceIRFPAI Quality Coding Scale 6 Independent with activity with or without an assistive device 5 Patient requires set up or clean up by helper. Patient completes activity by themselves 4 Supervision or touching assist (CGA). [place] provide cues , steadying assist 3 The helper provides less than half the effort to complete the activity 2 The helper provides more than half the effort to complete the activity 1 Dependent. The helper does all the effort to complete an activity 7 Patient refused to complete or attempt activity 9 The patient did not perform the activity before the current illness or injury 88 Not attempted due to Medical conditions or safety concerns Transfers (B, C, W/C) (FIM): 3 Sit to/from Stand: 3 Gait Training Distance (FIM): 1=up to 49 ft Distance: 1 step (R) foot only Gait Persons Needed: 1 Gait Assistive Device: Parallel [employer] Wheelchair Training Does the Pt Use a Wheelchair?: Yes Wheelchair (FIM): 5 Wheelchair Distance: 3=150 ft Distance: 200ft Wheelchair Level of Assist: 5 Exercises Supine Ex: LE Protocol Supine Reps: [address] Ex=Flex, Abd, Ext (L) only, with assistance Assessment Current Status: Good Progress Pt not able to maintain (L) knee extension long enough to take functional steps in ambulation. Worked on standing wt shift in parallel bars. PT Short Term Goals Short Term Goals Time Frame: Jul 22, 2016 Gait (FIM): 2 Gait Distance Comment: 70' Gait Level of Assist: 5 Gait Assistive Device: Cane Large Base Quad Wheelchair Distance: 125' PT Drop Wire Aligner Goals Fdc Goals PT Fdc Goals Time Frame: Aug 05, 2016 Transfers (B,C,W/C) (FIM): 6 Sit to Lying (QC): 6 Lying-Sitting on Side/Bed(QC): 6 Sit to Stand (QC): 6 Rollin Roll Left to Right (QC): 6 Chair/Dil-iv-Ojwtk Xfer(QC): 6 Car Transfer (QC): 4 Gait (FIM): 6 Distance: 150' Walk 10 feet (QC): 6 Walk 10ft-Uneven Surface(QC): 6 Walk 50ft with 2 Turns (QC): 6 Walk 150 ft (QC): 6 Gait Assistive Device: Cane Large Base Quad Stairs (FIM): 2 # of Steps: 4 1 Step (curb) (QC): 4 4 Steps (QC): 4 12 Steps (QC): 88 Stairs Level Of Assist: 5 Picking up an Object (QC): 5 PT Plan Treatment/Plan Treatment Plan: Continue Plan of Care Treatment Plan: Bed Mobility, Education, Functional Activity Madalyn, Functional Strength, Group Therapy, Gait, Safety, Therapeutic Exercise, Transfers Treatment Duration: Aug 05, 2016 Visits Per Week: 10-11 Minutes/Day (M-F): 60-90 Minutes/Day (Sat/Bryant): 15-30 Time/GCodes Time In: 1025 Time Out: 1100 Total Billed Treatment Time: 35 Total Billed Treatment 1, ex 20', fa 15' SAMUEL VANEGAS PT Jul 20, 2016 12:04
[2016-07-20] MEDS: ACETAMINOPHEN 500 MG TAB (TYLENOL) PO PRN (16:12)
[2016-07-20] MEDS: warFARin 5 MG (COUMADIN) TAB PO SCH (16:22)
[2016-07-20 18:13] VITALS: BP 147/89
[2016-07-20] MEDS: ATORVASTATIN 40 MG (LIPITOR) TABLET PO SCH (21:02)
[2016-07-20] MEDS: MELATONIN 3 MG TABLET PO SCH (21:02)
[2016-07-21] MEDS: ACETAMINOPHEN 500 MG TAB (TYLENOL) PO PRN ×3 (02:09→20:55)
[2016-07-21 05:34] LABS: INR 2.6 (0.8-1.4)
[2016-07-21] MEDS: FERROUS SULF 325 MG (IRON) TAB PO SCH ×2 (06:25→17:35)
[2016-07-21 06:51] VITALS: BP 102/63
[2016-07-21] MEDS: POLYETHYLENE GLYCOL 17 GM (MIRALAX) PACK PO SCH (09:00)
[2016-07-21] MEDS: CARVEDILOL 6.25 MG (COREG) TAB PO SCH ×2 (09:19→20:55)
[2016-07-21] MEDS: MAGNESIUM OXIDE (MAG-OX)400 MG TAB PO SCH (09:19)
[2016-07-21] MEDS: LORATADINE (CLARITIN) 10 MG TAB PO SCH (09:19)
[2016-07-21] MEDS: CLOPIDOGREL 75 MG (PLAVIX) TABLET PO SCH (09:19)
[2016-07-21] MEDS: GABAPENTIN 300 MG (NEURONTIN) CAP PO SCH ×3 (09:19→20:55)
[2016-07-21] MEDS: FAMOTIDINE 20 MG (PEPCID) TABLET PO SCH ×2 (09:19→20:55)
[2016-07-21] MEDS: OMEGA 3 (FISH OIL) 1000 MG CAP PO SCH (09:19)
[2016-07-21] MEDS: LACTOBACILLUS Acidoph/Bulgar (LACTINEX/FLORANEX) TAB PO SCH ×2 (09:19→20:55)
[2016-07-21] MEDS: DOCUSATE SODIUM 100 MG (COLACE) CAP PO SCH (09:19)
[2016-07-21] MEDS: FLUTICASONE NASAL SPRAY (FLONASE) 16 GM BTL NS SCH (09:53)
[2016-07-21] MEDS: DICLOFENAC 1% GEL 100 GM (VOLTAREN) TUBE TOP SCH ×4 (09:54→20:55)
[2016-07-21] MEDS: warFARin 5 MG (COUMADIN) TAB PO SCH (17:35)
[2016-07-21 18:00] VITALS: BP 147/81
[2016-07-21] MEDS: MELATONIN 3 MG TABLET PO SCH (20:55)
[2016-07-21] MEDS: ATORVASTATIN 40 MG (LIPITOR) TABLET PO SCH (20:55)
[2016-07-22 06:26] VITALS: BP 155/80
[2016-07-22] MEDS: FERROUS SULF 325 MG (IRON) TAB PO SCH ×2 (06:35→08:59)
[2016-07-22 06:52] LABS: INR 2.3 (0.8-1.4); PROTHROMBIN TIME PATIENT 25.2 SEC (12.2-14.7)
--- NOTE | 2016-07-22 07:36 | Occupational Ther Daily Note ---
OT Current Status-Daily Note Subjective Pt alert, sitting in w/c. Pt agreed to therapy. Pt stated that he was feeling and doing a lot better than last week. No c/o pain at this time. Mental Status/Objective Patient Orientation: Person, Place, Time, Situation Functional [place] Measure 0=Not Assessed/NA 4=Minimal Assistance 1=Total Assistance 5=Supervision or Setup 2=Maximal Assistance 6=Modified [place] 3=Moderate Assistance 7=Complete [place] ADL-Treatment Pt maneuvered w/c into bathroom by self. Positioning w/c to toilet, with assist. Mod A for transfer to toilet and assist to pull briefs down over hips. Pt was able to cleanse self after BM while sitting on toilet. Assist to don briefs, pants and shoes were required. Pt was able to pull pants/briefs up to hips with assist to balance then OT hiked pants over hips. Sitting at sink, pt was able to wash hands by self. Pt was able to complete set up for breakfast except opening sugar packets. Pt used regular utensils to feed self and cut up food. After set up, pt was able to use electric razor and shave self. After therapy, pt sitting in w/c with call light/phone in reach. All needs met in room. Functional [place] Measure 0=Not Assessed/NA 4=Minimal Assistance 1=Total Assistance 5=Supervision or Setup 2=Maximal Assistance 6=Modified [place] 3=Moderate Assistance 7=Complete IndependenceIRFPAI Quality Coding Scale 6 Independent with activity with or without an assistive device 5 Patient requires set up or clean up by helper. Patient completes activity by themselves 4 Supervision or touching assist (CGA). [place] provide cues , steadying assist 3 The helper provides less than half the effort to complete the activity 2 The helper provides more than half the effort to complete the activity 1 Dependent. The helper does all the effort to complete an activity 7 Patient refused to complete or attempt activity 9 The patient did not perform the activity before the current illness or injury 88 Not attempted due to Medical conditions or safety concerns Eating (FIM): 5 Grooming (FIM): 5 Toileting (FIM): 4 Toilet/Commode Transfer (FIM): 3 OT Short Term Goals Short Term Goals Time Frame: Jul 22, 2016 Bathing(FIM): 4 Upper Body Dressing(FIM): 4 Lower Body Dressing(FIM): 3 Toileting(FIM): 4 Toilet/Commode Transfer(FIM): 4 Shower Transfer(FIM): 4 (CGA) Additional Short Term Goals: 1-Demonstrate ADL Tasks, 2-Verbalize Understanding , 3-ImproveStrength/Madalyn 1=Demonstrate adherence to instructed precautions during ADL tasks. 2=Patient will verbalize/demonstrate understanding of assistive devices/ modifications for ADL. 3=Patient will improve strength/tolerance for activity to enable patient to perform ADL's. OT Police Investigator Goals Police Investigator Goals Time Frame: Aug 05, 2016 Eating (FIM): 6 Eating (QC): 6 Oral Hygiene (QC): 6 Grooming(FIM): 5 Bathing(FIM): 4 Shower/Bathe Self (QC): 4 Upper Body Dressing(FIM): 6 Upper Body Dressing (QC): 6 Lower Body Dressing(FIM): 5 Lower Body Dressing (QC): 5 On/Off Footwear (QC): 4 Toileting Hygiene (QC): 5 Toilet/Commode Transfer(FIM): 5 Toilet/Commode Transfer (QC): 5 Shower Transfer(FIM): 5 Comprehension(FIM): 6 Expression (FIM): 5 Social Interaction(FIM): 5 Problem Solving(FIM): 5 Memory(FIM): 5 Additional Goals: 1-Demonstrate ADL Tasks, 2-Verbalize Understanding, 3- ImproveStrength/Madalyn 1=Demonstrate adherence to instructed precautions during ADL tasks. 2=Patient will verbalize/demonstrate understanding of assistive devices/ modifications for ADL. 3=Patient will improve strength/tolerance for activity to enable patient to perform ADL's. OT Education/Plan Problem List/Assessment Pt to benefit from skilled OT intervention for ADL training, transfers, ROM/ strengthening, and safety education to maximize level of independence and allow safe discharge. Discharge Recommendations Plan/Recommendations: Continue POC Treatment Plan/Plan of Care Patient would benefit from OT for education, treatment and training to promote independence in ADL's, mobility, safety and/or upper extremity function for ADL' s. Plan of Care: ADL Retraining, Functional Mobility, Group Exercise/Act as Ind, Orthotic Fitting/Training, UE Funct Exercise/Act, UE Neuromus Re-Ed/Coord Treatment Duration: Aug 05, 2016 Visits Per Week: 10-11 Minutes/Day (M-F): 60-90 Minutes/Day (Sat/Bryant): PRN Agreement: Yes Rehab Potential: Fair Time/GCodes Start Time: 07:10 Stop Time: 07:55 Total Time Billed (hr/min): 45 Billed Treatment Time 1 visit-ADL 4 (45 min) TULIO BERGMAN Jul 22, 2016 07:36
--- NOTE | 2016-07-22 08:29 | Progress Note (SOAP) ---
Subjective Subjective/Events-last exam patient feeling better and more alert area Patient complaining of left knee hurting. To notify physical therapy and occupational therapy. INR 2.3. Patient ate good today Objective Exam Vital Signs Date Time Temp Pulse Resp B/P Pulse Ox O2 Delivery O2 Flow Rate FiO2 07/22/16 06:26 96.9 88 20 155/80 96 Room Air 07/21/16 18:00 95.0 82 18 147/81 99 Room Air I & O 07/22/16 07:00 Intake Total 1630 ml Output Total 1900 ml Balance -270 ml Capillary Refill : General Appearance: No Apparent Distress WD/WN HEENT: Normal ENT Inspection Neck: Full Range of Motion Normal Inspection Respiratory: Chest Non Tender Lungs Clear Normal Breath Sounds No Accessory Muscle Use No Respiratory Distress Cardiovascular: Regular Rate, Rhythm No Murmur Gastrointestinal: non tender soft Results Lab Laboratory Tests 07/22/16 06:18: INR Comment 2.3H, Prothrombin Time 25.2H Assessment/Plan Assessment/Plan Assess & Plan/Chief Complaint . . weakness. Previous stroke. Sepsis. UTI. Hyponatremia. History of LV thrombus. Acute kidney injury. . 07/17/16 weakness. Sepsis history. Hyponatremia. CVA on left. Patient feeling better todayarea . 06/2616. Weakness. Confusion this morning. Trouble swallowing this morning blood tests CAT scan negative. To give some IV fluids. . 07/19/16. Weakness less. Confusion better. CAT scan of the head negative. Previous stroke. Sepsis. UTI. Hyponatremia. . 07/22/16. Weakness less. More alert. No confusion. Previous stroke on left side. Left knee bothering him. Diagnosis/Problems: Clinical Quality Measures DVT/VTE Risk/Contraindication: Risk Factor Score Per Nursin RFS Level Per Nursing on Admit: 4+=Very High VAIBHAV ZAIDI DO Jul 22, 2016 08:29
[2016-07-22] MEDS: CLOPIDOGREL 75 MG (PLAVIX) TABLET PO SCH (08:43)
[2016-07-22] MEDS: FAMOTIDINE 20 MG (PEPCID) TABLET PO SCH ×2 (08:43→20:05)
[2016-07-22] MEDS: LORATADINE (CLARITIN) 10 MG TAB PO SCH (08:43)
[2016-07-22] MEDS: CARVEDILOL 6.25 MG (COREG) TAB PO SCH ×2 (08:43→20:06)
[2016-07-22] MEDS: MAGNESIUM OXIDE (MAG-OX)400 MG TAB PO SCH (08:43)
[2016-07-22] MEDS: GABAPENTIN 300 MG (NEURONTIN) CAP PO SCH ×3 (08:43→20:06)
[2016-07-22] MEDS: LACTOBACILLUS Acidoph/Bulgar (LACTINEX/FLORANEX) TAB PO SCH ×2 (08:43→20:05)
[2016-07-22] MEDS: OMEGA 3 (FISH OIL) 1000 MG CAP PO SCH (08:43)
[2016-07-22] MEDS: DOCUSATE SODIUM 100 MG (COLACE) CAP PO SCH ×2 (08:43→09:00)
[2016-07-22] MEDS: FLUTICASONE NASAL SPRAY (FLONASE) 16 GM BTL NS SCH (08:44)
[2016-07-22] MEDS: POLYETHYLENE GLYCOL 17 GM (MIRALAX) PACK PO SCH (08:44)
[2016-07-22] MEDS: DICLOFENAC 1% GEL 100 GM (VOLTAREN) TUBE TOP SCH ×5 (08:45→20:10)
--- NOTE | 2016-07-22 09:59 | Physical Therapy Daily Note ---
PT Daily Note-Current Subjective Patient in bathroom pre tx, agrees to PT, will need assist with cleaning up and getting pants up when he is done. Pain Numeric Pain Scale: 0-No Pain Appearance Patient in wheelchair post tx, patient is mod I with wheelchair mobility Mental Status Patient Orientation: Normal For Age Transfers Functional [place] Measure 0=Not Assessed/NA 4=Minimal Assistance 1=Total Assistance 5=Supervision or Setup 2=Maximal Assistance 6=Modified [place] 3=Moderate Assistance 7=Complete IndependenceIRFPAI Quality Coding Scale 6 Independent with activity with or without an assistive device 5 Patient requires set up or clean up by helper. Patient completes activity by themselves 4 Supervision or touching assist (CGA). [place] provide cues , steadying assist 3 The helper provides less than half the effort to complete the activity 2 The helper provides more than half the effort to complete the activity 1 Dependent. The helper does all the effort to complete an activity 7 Patient refused to complete or attempt activity 9 The patient did not perform the activity before the current illness or injury 88 Not attempted due to Medical conditions or safety concerns Transfers (B, C, W/C) (FIM): 4 Sit to/from Stand: 4 (min A) Bed to/from Chair: 4 (min A) Patient needs cues for safety and hand placement, will often try turning to sit while too far away from his chair. Gait Training Gait (FIM): 1 Distance: 30'x4 Gait Level of Assist: 4 (Aminah) Gait Persons Needed: 1 Gait Assistive Device: Cane Large Base Quad patient much stronger today, cues for safety, occasional assist with balance Wheelchair Training Does the Pt Use a Wheelchair?: Yes Wheelchair (FIM): 6 Distance: 150' Type of Wheelchair: Manual uses right arm and leg to propel Treatments ambulation, transfers, patient was cleaned and dressed after using the bathroom Assessment Current Status: Fair Progress much stronger and better endurance today PT Short Term Goals Short Term Goals Time Frame: Jul 22, 2016 Gait (FIM): 2 Gait Distance Comment: 70' Gait Level of Assist: 5 Gait Assistive Device: Cane Large Base Quad Wheelchair Distance: 200ft PT Soda Worker Goals Alf Goals PT Soda Worker Goals Time Frame: Aug 05, 2016 Transfers (B,C,W/C) (FIM): 6 Sit to Lying (QC): 6 Lying-Sitting on Side/Bed(QC): 6 Sit to Stand (QC): 6 Rollin Roll Left to Right (QC): 6 Chair/Hwo-xm-Lewgd Xfer(QC): 6 Car Transfer (QC): 4 Gait (FIM): 6 Distance: 150' Walk 10 feet (QC): 6 Walk 10ft-Uneven Surface(QC): 6 Walk 50ft with 2 Turns (QC): 6 Walk 150 ft (QC): 6 Gait Assistive Device: Cane Large Base Quad Stairs (FIM): 2 # of Steps: 4 1 Step (curb) (QC): 4 4 Steps (QC): 4 12 Steps (QC): 88 Stairs Level Of Assist: 5 Picking up an Object (QC): 5 PT Plan Problem List Problem List: Activity Tolerance, Functional Strength, Safety, Balance, Gait, Transfer, Bed Mobility, ROM Treatment/Plan Treatment Plan: Continue Plan of Care Treatment Plan: Bed Mobility, Education, Functional Activity Madalyn, Functional Strength, Group Therapy, Gait, Safety, Therapeutic Exercise, Transfers Treatment Duration: Aug 05, 2016 Visits Per Week: 10-11 Minutes/Day (M-F): 60-90 Minutes/Day (Sat/Bryant): 15-30 Safety Risks/Education Patient Education: Gait Training, Transfer Techniques, W/C Management, Safety Issues Teaching Recipient: Patient Teaching Methods: Demonstration, Discussion Response to Teaching: Reinforcement Needed Time/GCodes Time In: 915 Time Out: 1000 Total Billed Treatment Time: 45 Total Billed Treatment 1 visit GT 30 min FA 15 min ADONAY MULLEN PT Jul 22, 2016 09:59
--- NOTE | 2016-07-22 10:08 | Speech Therapy Daily Note ---
Speech Daily Progress Note Subjective The patient was sitting upright in his wheelchair upon entrance. The patient greeted the clinician appropriately and agreed to participate in dysphagia therapy on this date. Per patient, "I am feeling much better than last week, more like myself." Objective Dysphagia Exercises: The patient demonstrated high accuracy with base of tongue , pharyngeal wall, and laryngeal elevation exercises following one occurrence of direct modeling by the clinician. The patient denied questions or concerns regarding the exercises following the completion of the session. - The patient was observed consuming morning medication (one at a time) with water. No signs/symptoms of aspiration were demonstrated throughout the session. Assessment Assessment Current Status: Good Progress Treatment Plan Continue Plan of Care Communication Comprehension: 4 Expression: 5 Social Cognition Social Interaction: 5 Problem Solvin Memory: 4 Speech Short Term Goals Short Term Goals Short Term Goals 1. The patient will demonstrate oral motor exercises with 90% accuracy, independently. 2. The patient will demonstrate 90% intelligible with functional phrases, independently. 3. The patient will demonstrate dysphagia exercises with 90% accuracy, independently. Time Frame-STG: Two Weeks Speech Life Support Technician Goals Life Support Technician Goals 1. The patient will demonstrate improved expressive communication for increased safety and function with ADL's. 2. The patient will tolerate the least restrictive diet without signs/symptoms of aspiration or laryngeal penetration. Progressing. (07/19/16) Time Frame: Four Weeks Comprehension: 6 Expression: 5 Social Interaction: 5 Problem Solvin Memory: 5 Speech-Plan Treatment Plan Speech Therapy Treatment Plan: Continue Plan of Care Treatment Duration: Aug 12, 2016 # of days/week Four to Five Visits Per Week: Four to Five Minutes/Day (M-F): 30-45 Rehab Potential: Fair Safety Risks/Education Teaching Recipient: Patient Teaching Methods: Demonstration, Handout, Discussion Response to Teaching: Return Demonstration, Reinforcement Needed Education Topics Provided: Dysphagia Exercises Time Speech Therapy Time In: 08:45 Speech Therapy Time Out: 09:15 Total Billed Time: 30 Billed Treatment Time JANY Devlin ELIZABEBEATRICE GASPAR Jul 22, 2016 10:08
--- NOTE | 2016-07-22 12:02 | Occupational Ther Daily Note ---
OT Current Status-Daily Note Subjective Pt sleeping, woke easily to name. Pt agreed to therapy. No c/o pain at this time. Mental Status/Objective Patient Orientation: Person, Place, Time, Situation Functional [place] Measure 0=Not Assessed/NA 4=Minimal Assistance 1=Total Assistance 5=Supervision or Setup 2=Maximal Assistance 6=Modified [place] 3=Moderate Assistance 7=Complete [place] ADL-Treatment Functional [place] Measure 0=Not Assessed/NA 4=Minimal Assistance 1=Total Assistance 5=Supervision or Setup 2=Maximal Assistance 6=Modified [place] 3=Moderate Assistance 7=Complete IndependenceIRFPAI Quality Coding Scale 6 Independent with activity with or without an assistive device 5 Patient requires set up or clean up by helper. Patient completes activity by themselves 4 Supervision or touching assist (CGA). [place] provide cues , steadying assist 3 The helper provides less than half the effort to complete the activity 2 The helper provides more than half the effort to complete the activity 1 Dependent. The helper does all the effort to complete an activity 7 Patient refused to complete or attempt activity 9 The patient did not perform the activity before the current illness or injury 88 Not attempted due to Medical conditions or safety concerns Other Treatment Pt lying supine in bed. PROM and massage to L UE to decrease tightness in joints and increase ROM of UE. Hot moist pack to L hand while PROM and massage to L shldr. L scapula winging, is moveable to medial and lateral. Pt c/o pain with movement in digit ROM and elbow flexion extension. Pt has decreased ROM throughout L UE, slight AROM with L UE. After therapy, pt lying in bed attempting to use urinal. Call light/phone in reach. All needs met in room. OT Short Term Goals Short Term Goals Time Frame: Jul 22, 2016 Bathing(FIM): 4 Upper Body Dressing(FIM): 4 Lower Body Dressing(FIM): 3 Toileting(FIM): 4 Toilet/Commode Transfer(FIM): 4 Shower Transfer(FIM): 4 (CGA) Additional Short Term Goals: 1-Demonstrate ADL Tasks, 2-Verbalize Understanding , 3-ImproveStrength/Madalyn 1=Demonstrate adherence to instructed precautions during ADL tasks. 2=Patient will verbalize/demonstrate understanding of assistive devices/ modifications for ADL. 3=Patient will improve strength/tolerance for activity to enable patient to perform ADL's. OT Mat Sewer Goals Detention Goals Time Frame: Aug 05, 2016 Eating (FIM): 6 Eating (QC): 6 Oral Hygiene (QC): 6 Grooming(FIM): 5 Bathing(FIM): 4 Shower/Bathe Self (QC): 4 Upper Body Dressing(FIM): 6 Upper Body Dressing (QC): 6 Lower Body Dressing(FIM): 5 Lower Body Dressing (QC): 5 On/Off Footwear (QC): 4 Toileting Hygiene (QC): 5 Toilet/Commode Transfer(FIM): 5 Toilet/Commode Transfer (QC): 5 Shower Transfer(FIM): 5 Comprehension(FIM): 6 Expression (FIM): 5 Social Interaction(FIM): 5 Problem Solving(FIM): 5 Memory(FIM): 5 Additional Goals: 1-Demonstrate ADL Tasks, 2-Verbalize Understanding, 3- ImproveStrength/Madalyn 1=Demonstrate adherence to instructed precautions during ADL tasks. 2=Patient will verbalize/demonstrate understanding of assistive devices/ modifications for ADL. 3=Patient will improve strength/tolerance for activity to enable patient to perform ADL's. OT Education/Plan Problem List/Assessment Pt to benefit from skilled OT intervention for ADL training, transfers, ROM/ strengthening, and safety education to maximize level of independence and allow safe discharge. Discharge Recommendations Plan/Recommendations: Continue POC Treatment Plan/Plan of Care Patient would benefit from OT for education, treatment and training to promote independence in ADL's, mobility, safety and/or upper extremity function for ADL' s. Plan of Care: ADL Retraining, Functional Mobility, Group Exercise/Act as Ind, Orthotic Fitting/Training, UE Funct Exercise/Act, UE Neuromus Re-Ed/Coord Treatment Duration: Aug 05, 2016 Visits Per Week: 10-11 Minutes/Day (M-F): 60-90 Minutes/Day (Sat/Bryant): PRN Agreement: Yes Rehab Potential: Fair Time/GCodes Start Time: 11:15 Stop Time: 11:45 Total Time Billed (hr/min): 30 Billed Treatment Time 1 visit-FA 2 (30 min) TULIO BERGMAN Jul 22, 2016 12:02
--- NOTE | 2016-07-22 14:08 | Physical Therapy Daily Note ---
PT Daily Note-Current Subjective Pt was waiting for Pt in Therapy Gym upon arrival. Pt reports feeling good and agrees to PT. Pain Numeric Pain Scale: 0-No Pain Location: No Pain Reported Mental Status Patient Orientation: Person, Place Attachments: Other-See Comments AFO on LLE Transfers Functional [place] Measure 0=Not Assessed/NA 4=Minimal Assistance 1=Total Assistance 5=Supervision or Setup 2=Maximal Assistance 6=Modified [place] 3=Moderate Assistance 7=Complete IndependenceIRFPAI Quality Coding Scale 6 Independent with activity with or without an assistive device 5 Patient requires set up or clean up by helper. Patient completes activity by themselves 4 Supervision or touching assist (CGA). [place] provide cues , steadying assist 3 The helper provides less than half the effort to complete the activity 2 The helper provides more than half the effort to complete the activity 1 Dependent. The helper does all the effort to complete an activity 7 Patient refused to complete or attempt activity 9 The patient did not perform the activity before the current illness or injury 88 Not attempted due to Medical conditions or safety concerns Transfers (B, C, W/C) (FIM): 4 Scootin Sit to/from Stand: 4 Weight Bearing Weight Bearing Restriction: Full Weight Bearing Location Restriction: LE Bilateral Wheelchair Training Wheelchair (FIM): 2 Wheelchair Distance: 1=up to 49 ft Distance: 40' Wheelchair Level of Assist: 6 Exercises Seated Therapy Exercises: Ankle pumps, Long arc quads, Hip flexion, Kicking activity Seated Reps: 15 NuStep Minutes: 12 NuStep Workload: 4 Treatments Pt transferred from W/C to NuStep at Min A with SPT. Pt used NuStep for 12m at Workload 4 then transferred back to W/C with SPT at Min A to rest. Pt then completed seated Ex in W/C. Ex was AROM on RLE but AAROM on LLE due to weakness. Pt propelled W/C back to room at end of tx with all needs met. Assessment Current Status: Good Progress Pt's transfers are getting more independent and pt is able to assist more with them. Pt still needs assistance with both transfers and ambulation. PT Short Term Goals Short Term Goals Time Frame: Jul 22, 2016 Gait (FIM): 2 Gait Distance Comment: 70' Gait Level of Assist: 5 Gait Assistive Device: Cane Large Base Quad Wheelchair Distance: 150' PT Subeditor Goals Subeditor Goals PT Subeditor Goals Time Frame: Aug 05, 2016 Transfers (B,C,W/C) (FIM): 6 Gait (FIM): 6 Distance: 150' Gait Assistive Device: Cane Large Base Quad Stairs (FIM): 2 # of Steps: 4 Stairs Level Of Assist: 5 PT Plan Problem List Problem List: Activity Tolerance, Functional Strength, Safety, Balance, Gait, Transfer Treatment/Plan Treatment Plan: Continue Plan of Care Treatment Plan: Bed Mobility, Education, Functional Activity Madalyn, Functional Strength, Group Therapy, Gait, Safety, Therapeutic Exercise, Transfers Treatment Duration: Aug 05, 2016 Visits Per Week: 10-11 Minutes/Day (M-F): 60-90 Minutes/Day (Sat/Bryant): 15-30 Safety Risks/Education Patient Education: Transfer Techniques, Correct Positioning, Safety Issues Teaching Recipient: Patient Teaching Methods: Discussion Response to Teaching: Verbalize Understanding Time/GCodes Time In: 1330 Time Out: 1400 Total Billed Treatment Time: 30 Total Billed Treatment visit, EX X2 (30m) EZRA CAIN PTA Jul 22, 2016 14:08
[2016-07-22 14:21] VITALS: BP 107/73
[2016-07-22 17:56] VITALS: BP 144/80
[2016-07-22] MEDS: warFARin 5 MG (COUMADIN) TAB PO SCH (18:06)
[2016-07-22] MEDS: ATORVASTATIN 40 MG (LIPITOR) TABLET PO SCH (20:06)
[2016-07-22] MEDS: MELATONIN 3 MG TABLET PO SCH (20:08)
[2016-07-22] MEDS: ACETAMINOPHEN 500 MG TAB (TYLENOL) PO PRN (22:47)
[2016-07-23 05:00] VITALS: BP 154/80
[2016-07-23] MEDS: ACETAMINOPHEN 500 MG TAB (TYLENOL) PO PRN (06:14)
[2016-07-23] MEDS: FERROUS SULF 325 MG (IRON) TAB PO SCH (06:15)
[2016-07-23 06:20] LABS: INR 2.6 (0.8-1.4); PROTHROMBIN TIME PATIENT 27.8 SEC (12.2-14.7)
--- NOTE | 2016-07-23 08:07 | Progress Note (SOAP) ---
Subjective Subjective/Events-last exam patient feeling much better today. Patient yesterday had 2 physical therapy treatments. Patient did some walking with his walker.. Patient happy Objective Exam Vital Signs Date Time Temp Pulse Resp B/P Pulse Ox O2 Delivery O2 Flow Rate FiO2 07/23/16 05:00 98.2 80 18 154/80 97 Room Air 07/22/16 17:56 97.5 81 16 144/80 99 Room Air 07/22/16 14:21 107/73 I & O 07/23/16 07:00 Intake Total 1400 ml Output Total 1950 ml Balance -550 ml Capillary Refill : General Appearance: No Apparent Distress HEENT: Normal ENT Inspection Neck: Normal Inspection Respiratory: Normal Breath Sounds No Accessory Muscle Use No Respiratory Distress Cardiovascular: Regular Rate, Rhythm Results Lab Laboratory Tests 07/23/16 05:30: INR Comment 2.6H, Prothrombin Time 27.8H Assessment/Plan Assessment/Plan Assess & Plan/Chief Complaint . . weakness. Previous stroke. Sepsis. UTI. Hyponatremia. History of LV thrombus. Acute kidney injury. . 07/17/16 weakness. Sepsis history. Hyponatremia. CVA on left. Patient feeling better todayarea . 06/2616. Weakness. Confusion this morning. Trouble swallowing this morning blood tests CAT scan negative. To give some IV fluids. . 07/19/16. Weakness less. Confusion better. CAT scan of the head negative. Previous stroke. Sepsis. UTI. Hyponatremia. . 07/22/16. Weakness less. More alert. No confusion. Previous stroke on left side. Left knee bothering him.. . Weakness. Previous stroke. Sepsis. Hyponatremia. Patient doing much better. Diagnosis/Problems: Clinical Quality Measures DVT/VTE Risk/Contraindication: Risk Factor Score Per Nursin RFS Level Per Nursing on Admit: 4+=Very High VAIBHAV ZAIDI DO Jul 23, 2016 08:07
[2016-07-23] MEDS: OMEGA 3 (FISH OIL) 1000 MG CAP PO SCH (08:19)
[2016-07-23] MEDS: FAMOTIDINE 20 MG (PEPCID) TABLET PO SCH ×2 (08:19→20:54)
[2016-07-23] MEDS: LACTOBACILLUS Acidoph/Bulgar (LACTINEX/FLORANEX) TAB PO SCH ×2 (08:19→20:54)
[2016-07-23] MEDS: LORATADINE (CLARITIN) 10 MG TAB PO SCH (08:19)
[2016-07-23] MEDS: GABAPENTIN 300 MG (NEURONTIN) CAP PO SCH ×3 (08:19→20:54)
[2016-07-23] MEDS: DOCUSATE SODIUM 100 MG (COLACE) CAP PO SCH (08:19)
[2016-07-23] MEDS: CARVEDILOL 6.25 MG (COREG) TAB PO SCH ×2 (08:19→20:54)
[2016-07-23] MEDS: MAGNESIUM OXIDE (MAG-OX)400 MG TAB PO SCH (08:19)
[2016-07-23] MEDS: CLOPIDOGREL 75 MG (PLAVIX) TABLET PO SCH (08:19)
[2016-07-23] MEDS: POLYETHYLENE GLYCOL 17 GM (MIRALAX) PACK PO SCH (08:21)
[2016-07-23] MEDS: FLUTICASONE NASAL SPRAY (FLONASE) 16 GM BTL NS SCH (08:22)
[2016-07-23] MEDS: DICLOFENAC 1% GEL 100 GM (VOLTAREN) TUBE TOP SCH ×4 (08:22→20:55)
[2016-07-23] MEDS: SACUBITRIL/VALSARTAN 24/26 MG (ENTRESTO) TABLET PO SCH ×2 (09:16→20:54)
--- NOTE | 2016-07-23 10:02 | Physical Therapy Daily Note ---
PT Daily Note-Current Subjective Patient in chair pre tx, agrees to PT, pleasant and cooperative, no complaints of pain. Pain Numeric Pain Scale: 0-No Pain Appearance Patient in wheelchair post tx, has nurse call, has ST right after PT. Mental Status Patient Orientation: Normal For Age Transfers Functional [place] Measure 0=Not Assessed/NA 4=Minimal Assistance 1=Total Assistance 5=Supervision or Setup 2=Maximal Assistance 6=Modified [place] 3=Moderate Assistance 7=Complete IndependenceIRFPAI Quality Coding Scale 6 Independent with activity with or without an assistive device 5 Patient requires set up or clean up by helper. Patient completes activity by themselves 4 Supervision or touching assist (CGA). [place] provide cues , steadying assist 3 The helper provides less than half the effort to complete the activity 2 The helper provides more than half the effort to complete the activity 1 Dependent. The helper does all the effort to complete an activity 7 Patient refused to complete or attempt activity 9 The patient did not perform the activity before the current illness or injury 88 Not attempted due to Medical conditions or safety concerns Transfers (B, C, W/C) (FIM): 4 Supine to/from Sit: 4 Sit to/from Stand: 4 Bed to/from Chair: 4 Patient needs assist getting left leg into and out of bed. [place]/CGA for stand pivot transfer. Gait Training Gait (FIM): 2 Distance: 60'x2 Gait Level of Assist: 4 Gait Persons Needed: 1 Gait Assistive Device: Cane Large Base Quad left AFO, much better advancement of left leg Exercises SAQ left side with 2# ankle weight for 5 min, PROM/stretching of left leg in all planes, manually resisted left leg extension 3 sets of 10, sit to stand 3 sets of 5 Treatments bed mobility and transfers, ambulation, functional strengthening, PROM/ stretching Assessment Current Status: Fair Progress improving strength, balance, endurance PT Short Term Goals Short Term Goals Time Frame: Jul 22, 2016 Gait (FIM): 2 Gait Distance Comment: 70' Gait Level of Assist: 5 Gait Assistive Device: Cane Large Base Quad Wheelchair Distance: 40' PT Skilled Nursing Goals Rectifying Operator Goals PT Rectifying Operator Goals Time Frame: Aug 05, 2016 Transfers (B,C,W/C) (FIM): 6 Sit to Lying (QC): 6 Lying-Sitting on Side/Bed(QC): 6 Sit to Stand (QC): 6 Rollin Roll Left to Right (QC): 6 Chair/Tko-fz-Lveqt Xfer(QC): 6 Car Transfer (QC): 4 Gait (FIM): 6 Distance: 150' Walk 10 feet (QC): 6 Walk 10ft-Uneven Surface(QC): 6 Walk 50ft with 2 Turns (QC): 6 Walk 150 ft (QC): 6 Gait Assistive Device: Cane Large Base Quad Stairs (FIM): 2 # of Steps: 4 1 Step (curb) (QC): 4 4 Steps (QC): 4 12 Steps (QC): 88 Stairs Level Of Assist: 5 Picking up an Object (QC): 5 PT Plan Problem List Problem List: Activity Tolerance, Functional Strength, Safety, Balance, Gait, Transfer, Bed Mobility, ROM Treatment/Plan Treatment Plan: Continue Plan of Care Treatment Plan: Bed Mobility, Education, Functional Activity Madalyn, Functional Strength, Group Therapy, Gait, Safety, Therapeutic Exercise, Transfers Treatment Duration: Aug 05, 2016 Visits Per Week: 10-11 Minutes/Day (M-F): 60-90 Minutes/Day (Sat/Bryant): 15-30 Safety Risks/Education Patient Education: Gait Training, Transfer Techniques, Safety Issues Teaching Recipient: Patient Teaching Methods: Demonstration, Discussion Response to Teaching: Reinforcement Needed Time/GCodes Time In: 915 Time Out: 1000 Total Billed Treatment Time: 45 Total Billed Treatment 1 visit GT 15 min EX 30 min ADONAY MULLEN PT Jul 23, 2016 10:02
--- NOTE | 2016-07-23 10:50 | Speech Therapy Daily Note ---
Speech Daily Progress Note Subjective The patient was sitting upright in his wheelchair upon entrance. The patient greeted the clinician appropriately and agreed to participate in dysphagia therapy on this date. Objective Dysphagia Exercises: The patient demonstrated high accuracy with base of tongue , pharyngeal wall, and laryngeal elevation exercises following one occurrence of direct modeling by the clinician. The patient denied questions or concerns regarding the exercises following the completion of the session. Assessment Assessment Current Status: Good Progress Treatment Plan Continue Plan of Care Communication Comprehension: 5 Expression: 5 Social Cognition Social Interaction: 6 Problem Solvin Memory: 4 Speech Short Term Goals Short Term Goals Short Term Goals 1. The patient will demonstrate oral motor exercises with 90% accuracy, independently. 2. The patient will demonstrate 90% intelligible with functional phrases, independently. 3. The patient will demonstrate dysphagia exercises with 90% accuracy, independently. Time Frame-STG: Two Weeks Speech Half-Way Goals Financial Management Goals 1. The patient will demonstrate improved expressive communication for increased safety and function with ADL's. 2. The patient will tolerate the least restrictive diet without signs/symptoms of aspiration or laryngeal penetration. Progressing. (07/19/16) Time Frame: Four Weeks Comprehension: 6 Expression: 5 Social Interaction: 5 Problem Solvin Memory: 5 Speech-Plan Treatment Plan Speech Therapy Treatment Plan: Continue Plan of Care Treatment Duration: Aug 12, 2016 # of days/week Four to Five Visits Per Week: Four to Five Minutes/Day (M-F): 30-45 Rehab Potential: Fair Safety Risks/Education Teaching Recipient: Patient Teaching Methods: Demonstration, Handout, Discussion Response to Teaching: Return Demonstration, Reinforcement Needed Education Topics Provided: Dysphagia Exercises Time Speech Therapy Time In: 10:00 Speech Therapy Time Out: 10:30 Total Billed Time: 30 Billed Treatment Time JANY Devlin ELIZABETH Jul 23, 2016 10:50
--- NOTE | 2016-07-23 11:16 | Occupational Ther Daily Note ---
OT Current Status-Daily Note Subjective Pt alert, lying in bed. Pt agreed to therapy. No c/o pain. Mental Status/Objective Patient Orientation: Person, Place, Time, Situation Functional [place] Measure 0=Not Assessed/NA 4=Minimal Assistance 1=Total Assistance 5=Supervision or Setup 2=Maximal Assistance 6=Modified [place] 3=Moderate Assistance 7=Complete [place] ADL-Treatment Pt agreed to take shower today. Pt transported to bathroom via w/c. Min A to transfer from w/c to shower bench using grabbars then transferred back after shower. Pt was able to bathe self using shower bench, grabbars and hand held shower with SBA for safety. Pt leaned side to side to cleanse buttocks instead of standing up. Min A to dry with towels. Assist to don briefs and pants over L foot then pt able to don over R foot and pull up legs, Min A when standing using grabbar as pt hiked pants over hips. Pt crossed legs to don each sock by self. Pt sat at sink and completed grooming skills. Pt soaks dentures at night , assist to open tablet packages. After therapy, pt sitting in w/c with call light/phone in reach. All needs met in room. Functional [place] Measure 0=Not Assessed/NA 4=Minimal Assistance 1=Total Assistance 5=Supervision or Setup 2=Maximal Assistance 6=Modified [place] 3=Moderate Assistance 7=Complete IndependenceIRFPAI Quality Coding Scale 6 Independent with activity with or without an assistive device 5 Patient requires set up or clean up by helper. Patient completes activity by themselves 4 Supervision or touching assist (CGA). [place] provide cues , steadying assist 3 The helper provides less than half the effort to complete the activity 2 The helper provides more than half the effort to complete the activity 1 Dependent. The helper does all the effort to complete an activity 7 Patient refused to complete or attempt activity 9 The patient did not perform the activity before the current illness or injury 88 Not attempted due to Medical conditions or safety concerns Grooming (FIM): 4 Bathing (FIM): 5 Lower Body Dressing (FIM): 3 Transfers (B, C, W/C) (FIM): 4 Shower Transfer(FIM): 4 OT Short Term Goals Short Term Goals Time Frame: Jul 22, 2016 Bathing(FIM): 4 Upper Body Dressing(FIM): 4 Lower Body Dressing(FIM): 3 Toileting(FIM): 4 Toilet/Commode Transfer(FIM): 4 Shower Transfer(FIM): 4 (CGA) Additional Short Term Goals: 1-Demonstrate ADL Tasks, 2-Verbalize Understanding , 3-ImproveStrength/Madalyn 1=Demonstrate adherence to instructed precautions during ADL tasks. 2=Patient will verbalize/demonstrate understanding of assistive devices/ modifications for ADL. 3=Patient will improve strength/tolerance for activity to enable patient to perform ADL's. OT Detention Goals Detention Goals Time Frame: Aug 05, 2016 Eating (FIM): 6 Eating (QC): 6 Oral Hygiene (QC): 6 Grooming(FIM): 5 Bathing(FIM): 4 Shower/Bathe Self (QC): 4 Upper Body Dressing(FIM): 6 Upper Body Dressing (QC): 6 Lower Body Dressing(FIM): 5 Lower Body Dressing (QC): 5 On/Off Footwear (QC): 4 Toileting Hygiene (QC): 5 Toilet/Commode Transfer(FIM): 5 Toilet/Commode Transfer (QC): 5 Shower Transfer(FIM): 5 Comprehension(FIM): 6 Expression (FIM): 5 Social Interaction(FIM): 5 Problem Solving(FIM): 5 Memory(FIM): 5 Additional Goals: 1-Demonstrate ADL Tasks, 2-Verbalize Understanding, 3- ImproveStrength/Madalyn 1=Demonstrate adherence to instructed precautions during ADL tasks. 2=Patient will verbalize/demonstrate understanding of assistive devices/ modifications for ADL. 3=Patient will improve strength/tolerance for activity to enable patient to perform ADL's. OT Education/Plan Problem List/Assessment Pt to benefit from skilled OT intervention for ADL training, transfers, ROM/ strengthening, and safety education to maximize level of independence and allow safe discharge. Discharge Recommendations Plan/Recommendations: Continue POC Treatment Plan/Plan of Care Patient would benefit from OT for education, treatment and training to promote independence in ADL's, mobility, safety and/or upper extremity function for ADL' s. Plan of Care: ADL Retraining, Functional Mobility, Group Exercise/Act as Ind, Orthotic Fitting/Training, UE Funct Exercise/Act, UE Neuromus Re-Ed/Coord Treatment Duration: Aug 05, 2016 Visits Per Week: 10-11 Minutes/Day (M-F): 60-90 Minutes/Day (Sat/Bryant): PRN Agreement: Yes Rehab Potential: Fair Time/GCodes Start Time: 08:00 Stop Time: 09:15 Total Time Billed (hr/min): 75 Billed Treatment Time 1 visit-ADL 5 (75 min) TULIO BERGMAN Jul 23, 2016 11:16
--- NOTE | 2016-07-23 13:50 | Physical Therapy Daily Note ---
PT Daily Note-Current Subjective Patient in wheelchair pre tx, agrees to PT, pleasant and cooperative, no complaints of pain. Pain Numeric Pain Scale: 0-No Pain Appearance Patient in wheelchair post tx, is mod I with wheelchair mobility. Mental Status Patient Orientation: Normal For Age Transfers Functional [place] Measure 0=Not Assessed/NA 4=Minimal Assistance 1=Total Assistance 5=Supervision or Setup 2=Maximal Assistance 6=Modified [place] 3=Moderate Assistance 7=Complete IndependenceIRFPAI Quality Coding Scale 6 Independent with activity with or without an assistive device 5 Patient requires set up or clean up by helper. Patient completes activity by themselves 4 Supervision or touching assist (CGA). [place] provide cues , steadying assist 3 The helper provides less than half the effort to complete the activity 2 The helper provides more than half the effort to complete the activity 1 Dependent. The helper does all the effort to complete an activity 7 Patient refused to complete or attempt activity 9 The patient did not perform the activity before the current illness or injury 88 Not attempted due to Medical conditions or safety concerns Transfers (B, C, W/C) (FIM): 4 Sit to/from Stand: 4 Bed to/from Chair: 4 CGA with sit to stand and transfers, appropriate use of hands Gait Training Gait (FIM): 2 Distance: 100'x2 Gait Level of Assist: 4 Gait Persons Needed: 1 Gait Assistive Device: Cane Large Base Quad left AFO, CGA Exercises NuStep Minutes: 15 NuStep Workload: 5 Treatments transfers, ambulation, functional strengthening Assessment Current Status: Fair Progress improving strength and mobility PT Short Term Goals Short Term Goals Time Frame: Jul 22, 2016 Gait (FIM): 2 Gait Distance Comment: 70' Gait Level of Assist: 5 Gait Assistive Device: Cane Large Base Quad Wheelchair Distance: 40' PT Retirement Goals Retirement Goals PT Retirement Goals Time Frame: Aug 05, 2016 Transfers (B,C,W/C) (FIM): 6 Sit to Lying (QC): 6 Lying-Sitting on Side/Bed(QC): 6 Sit to Stand (QC): 6 Rollin Roll Left to Right (QC): 6 Chair/Zgp-ok-Jzqov Xfer(QC): 6 Car Transfer (QC): 4 Gait (FIM): 6 Distance: 150' Walk 10 feet (QC): 6 Walk 10ft-Uneven Surface(QC): 6 Walk 50ft with 2 Turns (QC): 6 Walk 150 ft (QC): 6 Gait Assistive Device: Cane Large Base Quad Stairs (FIM): 2 # of Steps: 4 1 Step (curb) (QC): 4 4 Steps (QC): 4 12 Steps (QC): 88 Stairs Level Of Assist: 5 Picking up an Object (QC): 5 PT Plan Problem List Problem List: Activity Tolerance, Functional Strength, Safety, Balance, Gait, Transfer, Bed Mobility, ROM Treatment/Plan Treatment Plan: Continue Plan of Care Treatment Plan: Bed Mobility, Education, Functional Activity Madalyn, Functional Strength, Group Therapy, Gait, Safety, Therapeutic Exercise, Transfers Treatment Duration: Aug 05, 2016 Visits Per Week: 10-11 Minutes/Day (M-F): 60-90 Minutes/Day (Sat/Bryant): 15-30 Safety Risks/Education Patient Education: Gait Training, Transfer Techniques, Safety Issues Teaching Recipient: Patient Teaching Methods: Demonstration, Discussion Response to Teaching: Reinforcement Needed Time/GCodes Time In: 1315 Time Out: 1345 Total Billed Treatment Time: 30 Total Billed Treatment 1 visit GT 15 min EX 15 min ADONAY MULLEN PT Jul 23, 2016 13:50
[2016-07-23] MEDS: warFARin 5 MG (COUMADIN) TAB PO SCH (17:12)
[2016-07-23] MEDS: ALFUZOSIN HCL 10 MG TAB (UROXATRAL) PO SCH (17:12)
[2016-07-23 17:52] VITALS: BP 146/83
--- NOTE | 2016-07-23 18:49 | PM & R (SOAP) Progress Note ---
Subjective Subjective/Events-last exam Patient was seen in his room this AM Discussed case with Dr Arizmendi Patient wants his home meds of Flomax and a cardiac med combo resumed See orders Patient transfers with min assist Objective Exam Last Set of Vital Signs Vital Signs Date Time Temp Pulse Resp B/P Pulse Ox O2 Delivery O2 Flow Rate FiO2 07/23/16 05:00 98.2 80 18 154/80 97 Room Air Capillary Refill : I&O Intake and Output 07/23/16 00:00 Intake Total 1350 ml Output Total 1800 ml Balance -450 ml Intake Oral 1350 ml Output Urine Total 1800 ml # Bowel Movements 3 General: Alert, Oriented X3, Cooperative, No Acute Distress HEENT: Atraumatic, PERRLA, EOMI, Mucous Memb Moist/[place] Neck: Supple, No JVD Lungs: Clear to Auscultation Heart: Regular Rate Abdomen: Normal Bowel Sounds, Soft, No Tenderness Extremities: No Edema Neuro: Other (Doing better with improved strength and speech Very alert Self propels w/c on unit) Results Lab Laboratory Tests 07/21/16 05:15: INR Comment 2.6H, Prothrombin Time 28.0H 07/22/16 06:18: INR Comment 2.3H, Prothrombin Time 25.2H 07/23/16 05:30: INR Comment 2.6H, Prothrombin Time 27.8H Assessment/Plan Assessment General debil secondary to UTI with sepsis treated OSH Change in mental status w/u in progress-will d/c baclofen-and now improved s/p 1 lter of IVFS and with Baclfen d/cd 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
[2016-07-23] MEDS: ATORVASTATIN 40 MG (LIPITOR) TABLET PO SCH (20:54)
[2016-07-23] MEDS: MELATONIN 3 MG TABLET PO SCH (20:54)
[2016-07-24] MEDS: ACETAMINOPHEN 500 MG TAB (TYLENOL) PO PRN ×2 (04:11→22:07)
[2016-07-24 05:31] LABS: INR 2.5 (0.8-1.4); PROTHROMBIN TIME PATIENT 27.1 SEC (12.2-14.7)
[2016-07-24] MEDS: FERROUS SULF 325 MG (IRON) TAB PO SCH (06:15)
[2016-07-24 06:21] VITALS: BP 135/81
--- NOTE | 2016-07-24 08:04 | Progress Note (SOAP) ---
Subjective Subjective/Events-last exam patient feels he is improving. Last Friday's patient states he really has progressed. Objective Exam Vital Signs Date Time Temp Pulse Resp B/P Pulse Ox O2 Delivery O2 Flow Rate FiO2 07/24/16 06:21 97.2 80 18 135/81 98 07/23/16 21:00 Room Air 07/23/16 17:52 96.5 80 16 146/83 98 I & O 07/24/16 07:00 Intake Total 1000 ml Output Total 1200 ml Balance -200 ml Capillary Refill : General Appearance: No Apparent Distress Thin HEENT: Normal ENT Inspection Neck: Normal Inspection Respiratory: Chest Non Tender Lungs Clear No Accessory Muscle Use No Respiratory Distress Cardiovascular: Regular Rate, Rhythm Gastrointestinal: non tender soft Results Lab Laboratory Tests 07/24/16 05:07: INR Comment 2.5H, Prothrombin Time 27.1H Assessment/Plan Assessment/Plan Assess & Plan/Chief Complaint . . weakness. Previous stroke. Sepsis. UTI. Hyponatremia. History of LV thrombus. Acute kidney injury. . 07/17/16 weakness. Sepsis history. Hyponatremia. CVA on left. Patient feeling better todayarea . 06/2616. Weakness. Confusion this morning. Trouble swallowing this morning blood tests CAT scan negative. To give some IV fluids. . 07/19/16. Weakness less. Confusion better. CAT scan of the head negative. Previous stroke. Sepsis. UTI. Hyponatremia. . 07/22/16. Weakness less. More alert. No confusion. Previous stroke on left side. Left knee bothering him.. . Weakness. Previous stroke. Sepsis. Hyponatremia. Patient doing much better.. . 07/24/16. Patient states he is doing better. Patient positive area Patient has weakness of previous stroke. Tablet feelings about this patient's Diagnosis/Problems: Clinical Quality Measures DVT/VTE Risk/Contraindication: Risk Factor Score Per Nursin RFS Level Per Nursing on Admit: 4+=Very High VAIBHAV ZAIDI DO Jul 24, 2016 08:04
[2016-07-24] MEDS: CARVEDILOL 6.25 MG (COREG) TAB PO SCH ×2 (08:10→20:56)
[2016-07-24] MEDS: LACTOBACILLUS Acidoph/Bulgar (LACTINEX/FLORANEX) TAB PO SCH ×2 (08:10→20:56)
[2016-07-24] MEDS: GABAPENTIN 300 MG (NEURONTIN) CAP PO SCH ×3 (08:10→20:56)
[2016-07-24] MEDS: CLOPIDOGREL 75 MG (PLAVIX) TABLET PO SCH (08:10)
[2016-07-24] MEDS: MAGNESIUM OXIDE (MAG-OX)400 MG TAB PO SCH (08:10)
[2016-07-24] MEDS: DOCUSATE SODIUM 100 MG (COLACE) CAP PO SCH (08:10)
[2016-07-24] MEDS: OMEGA 3 (FISH OIL) 1000 MG CAP PO SCH (08:11)
[2016-07-24] MEDS: SACUBITRIL/VALSARTAN 24/26 MG (ENTRESTO) TABLET PO SCH ×2 (08:11→20:56)
[2016-07-24] MEDS: DICLOFENAC 1% GEL 100 GM (VOLTAREN) TUBE TOP SCH ×4 (08:11→20:57)
[2016-07-24] MEDS: LORATADINE (CLARITIN) 10 MG TAB PO SCH (08:11)
[2016-07-24] MEDS: POLYETHYLENE GLYCOL 17 GM (MIRALAX) PACK PO SCH (08:11)
[2016-07-24] MEDS: FAMOTIDINE 20 MG (PEPCID) TABLET PO SCH ×2 (08:11→20:56)
[2016-07-24] MEDS: FLUTICASONE NASAL SPRAY (FLONASE) 16 GM BTL NS SCH (08:11)
--- NOTE | 2016-07-24 09:08 | Occupational Ther Daily Note ---
OT Current Status-Daily Note Subjective Pt in bed, agrees to treatment. Pt states he is not currently having pain, but occasionally has muscles spasm in left LE that cause pain. Mental Status/Objective Functional [place] Measure 0=Not Assessed/NA 4=Minimal Assistance 1=Total Assistance 5=Supervision or Setup 2=Maximal Assistance 6=Modified [place] 3=Moderate Assistance 7=Complete [place] ADL-Treatment Pt requests to put teeth in before getting up. Pt able to place Fixodent on dentures and place them in mouth. Supine to sit with supervision. Pt states he will wear the shirt he has on, but needs a clean pair of pants. Pt able to cross left leg to start pants over foot. Requires minimal assistance for balance when reaching forward to start pants over right foot. Stood with minimal assistance for balance during pant hike. Pt able to pull pants over right hip, but requires assist to pull up over left hip. Don right shoe with set up. Pt donned left shoe and AFO with moderate assistance. Increased time for dressing tasks. Transfer EOB to w/c with minimal assistance. Pt performed w/ c mobility to restroom. Grooming tasks completed seated at sink. Pt combed hair and washed face with set up. Pt's meal tray arrived during session. Pt able to feed self after set up. Pt sitting in w/c with needs met, eating breakfast after session. Functional [place] Measure 0=Not Assessed/NA 4=Minimal Assistance 1=Total Assistance 5=Supervision or Setup 2=Maximal Assistance 6=Modified [place] 3=Moderate Assistance 7=Complete IndependenceIRFPAI Quality Coding Scale 6 Independent with activity with or without an assistive device 5 Patient requires set up or clean up by helper. Patient completes activity by themselves 4 Supervision or touching assist (CGA). [place] provide cues , steadying assist 3 The helper provides less than half the effort to complete the activity 2 The helper provides more than half the effort to complete the activity 1 Dependent. The helper does all the effort to complete an activity 7 Patient refused to complete or attempt activity 9 The patient did not perform the activity before the current illness or injury 88 Not attempted due to Medical conditions or safety concerns Eating (FIM): 5 Eating (QC): 5 Grooming (FIM): 4 Lower Body Dressing (FIM): 3 Lower Body Dressing (QC): 3 On/Off Footwear (QC): 3 OT Short Term Goals Short Term Goals Time Frame: Jul 22, 2016 Bathing(FIM): 4 Upper Body Dressing(FIM): 4 Lower Body Dressing(FIM): 3 Toileting(FIM): 4 Toilet/Commode Transfer(FIM): 4 Shower Transfer(FIM): 4 (CGA) Additional Short Term Goals: 1-Demonstrate ADL Tasks, 2-Verbalize Understanding , 3-ImproveStrength/Madalyn 1=Demonstrate adherence to instructed precautions during ADL tasks. 2=Patient will verbalize/demonstrate understanding of assistive devices/ modifications for ADL. 3=Patient will improve strength/tolerance for activity to enable patient to perform ADL's. OT District Manager Major Accounts Sales Goals District Manager Major Accounts Sales Goals Time Frame: Aug 05, 2016 Eating (FIM): 6 Eating (QC): 6 Oral Hygiene (QC): 6 Grooming(FIM): 5 Bathing(FIM): 4 Shower/Bathe Self (QC): 4 Upper Body Dressing(FIM): 6 Upper Body Dressing (QC): 6 Lower Body Dressing(FIM): 5 Lower Body Dressing (QC): 5 On/Off Footwear (QC): 4 Toileting Hygiene (QC): 5 Toilet/Commode Transfer(FIM): 5 Toilet/Commode Transfer (QC): 5 Shower Transfer(FIM): 5 Comprehension(FIM): 6 Expression (FIM): 5 Social Interaction(FIM): 5 Problem Solving(FIM): 5 Memory(FIM): 5 Additional Goals: 1-Demonstrate ADL Tasks, 2-Verbalize Understanding, 3- ImproveStrength/Madalyn 1=Demonstrate adherence to instructed precautions during ADL tasks. 2=Patient will verbalize/demonstrate understanding of assistive devices/ modifications for ADL. 3=Patient will improve strength/tolerance for activity to enable patient to perform ADL's. OT Education/Plan Problem List/Assessment Pt to benefit from skilled OT intervention for ADL training, transfers, ROM/ strengthening, and safety education to maximize level of independence and allow safe discharge. Discharge Recommendations Plan/Recommendations: Continue POC Treatment Plan/Plan of Care Patient would benefit from OT for education, treatment and training to promote independence in ADL's, mobility, safety and/or upper extremity function for ADL' s. Plan of Care: ADL Retraining, Functional Mobility, Group Exercise/Act as Ind, Orthotic Fitting/Training, UE Funct Exercise/Act, UE Neuromus Re-Ed/Coord Treatment Duration: Aug 05, 2016 Visits Per Week: 10-11 Minutes/Day (M-F): 60-90 Minutes/Day (Sat/Bryant): PRN Agreement: Yes Rehab Potential: Fair Time/GCodes Start Time: 08:00 Stop Time: 09:00 Total Time Billed (hr/min): 60 Billed Treatment Time 1 visit, ADLx4(60minutes) RASHIDA ORTIZ OT Jul 24, 2016 09:08
--- NOTE | 2016-07-24 10:52 | Speech Therapy Daily Note ---
Speech Daily Progress Note Subjective The patient was seated upright in wheelchair upon entrance. The patient was agreeable to dysphagia therapy on this date. Objective Dysphagia Exercises: The patient demonstrated high accuracy with dysphagia exercises on this date. The patient intermittently requested direct modeling, however, independently displayed exercises following one occurrence. The patient denied questions or concerns regarding the recommended exercises and swallowing strategies. Assessment Assessment Current Status: Good Progress Treatment Plan Continue Plan of Care Communication Comprehension: 6 Expression: 5 Social Cognition Social Interaction: 6 Problem Solvin Memory: 5 Speech Short Term Goals Short Term Goals Short Term Goals 1. The patient will demonstrate oral motor exercises with 90% accuracy, independently. 2. The patient will demonstrate 90% intelligible with functional phrases, independently. 3. The patient will demonstrate dysphagia exercises with 90% accuracy, independently. Time Frame-STG: Two Weeks Speech Skilled Nursing Goals Dry Cure Worker Goals 1. The patient will demonstrate improved expressive communication for increased safety and function with ADL's. 2. The patient will tolerate the least restrictive diet without signs/symptoms of aspiration or laryngeal penetration. Progressing. (07/19/16) Time Frame: Four Weeks Comprehension: 6 Expression: 5 Social Interaction: 5 Problem Solvin Memory: 5 Speech-Plan Treatment Plan Speech Therapy Treatment Plan: Continue Plan of Care Treatment Duration: Aug 12, 2016 # of days/week Four to Five Visits Per Week: Four to Five Minutes/Day (M-F): 30-45 Rehab Potential: Fair Safety Risks/Education Teaching Recipient: Patient Teaching Methods: Demonstration, Handout, Discussion Response to Teaching: Verbalize Understanding, Return Demonstration Education Topics Provided: Dysphagia Exercises Time Speech Therapy Time In: 10:00 Speech Therapy Time Out: 10:30 Total Billed Time: 30 Billed Treatment Time 1JANY ELIZABETH ST Jul 24, 2016 10:52
--- NOTE | 2016-07-24 13:33 | Physical Therapy Daily Note ---
PT Daily Note-Current Subjective Pt was sitting in W/C wheeling in hallway upon arrival. Pt agreed to PT. Pain Numeric Pain Scale: 0-No Pain Location: No Pain Reported Mental Status Patient Orientation: Person, Place, Time, Situation Attachments: Other-See Comments AFO for LLE Transfers Functional [place] Measure 0=Not Assessed/NA 4=Minimal Assistance 1=Total Assistance 5=Supervision or Setup 2=Maximal Assistance 6=Modified [place] 3=Moderate Assistance 7=Complete IndependenceIRFPAI Quality Coding Scale 6 Independent with activity with or without an assistive device 5 Patient requires set up or clean up by helper. Patient completes activity by themselves 4 Supervision or touching assist (CGA). [place] provide cues , steadying assist 3 The helper provides less than half the effort to complete the activity 2 The helper provides more than half the effort to complete the activity 1 Dependent. The helper does all the effort to complete an activity 7 Patient refused to complete or attempt activity 9 The patient did not perform the activity before the current illness or injury 88 Not attempted due to Medical conditions or safety concerns Scootin Sit to/from Stand: 5 Sit to Stand (QC): 5 Weight Bearing Weight Bearing Restriction: Full Weight Bearing Location Restriction: LE Bilateral Gait Training Does the Patient Walk?: Yes Distance (FIM): 9=570-43 ft Distance: 50' X2 Walk 10 feet (QC): 4 Walk 50 ft with 2 Turns(QC): 4 Walk 150 ft (QC): 88 Gait Level of Assist: 4 Gait Persons Needed: 1 Gait Assistive Device: Walker Donnie Pt walks with donnie walker at CGA-Min A for slight unsteadiness as pt fatigues at end of 50', pt's L knee marilin. Wheelchair Training Does the Pt Use a Wheelchair?: Yes Wheelchair Distance: 3=150 ft Distance: 150' Wheelchair Level of Assist: 6 Wheel 50 ft with 2 turns (QC): 6 Wheel 150 ft (QC): 6 Type of Wheelchair: Manual Pt is Mod I with W/C. Pt is able to wheel in hallway independently. Exercises Seated Therapy Exercises: Ankle pumps, Sit to stand (5 sets), Long arc quads, Hip flexion, Kicking activity Seated Reps: 15 NuStep Minutes: 12 NuStep Workload: 5 Treatments Pt propelled W/C to Therapy Gym after he had been propelling in hallway prior to tx. Pt then transferred from sit to stand to ambulate in gym using donnie walker at [facility]-Min A. Pt ambulated 50' before transferring back to W/C to rest. After short rest, pt transferred to standing again to ambulate. Pt ambulated another 50' using donnie walker at Min A due to fatigue. Pt transferred to sitting at NuStep at end of walk using SPT at [facility] for support. Pt used NuStep for 12m at Workload 4 to start then asked to bump up to 5 for increased resistance. Pt transferred back to W/C to rest. Pt then completed seated EX in W/C before returning to room to rest. Pt transferred from W/C to EOB at SPT at [facility]. Pt transferred from EOB to supine at Min A to assist with lifting legs into bed and positioning. Pt was left with all needs met at end of tx. Assessment Current Status: Good Progress Pt continues to make progress in independence with transfers and ambulation. Pt still fatigues but has increased his activity tolerance. Pt continues to struggle with weakness of LLE. Pt is motivated to get better and go home. PT Short Term Goals Short Term Goals Time Frame: Jul 22, 2016 Gait (FIM): 2 Gait Distance Comment: 70' Gait Level of Assist: 5 Gait Assistive Device: Cane Large Base Quad Wheelchair Distance: 40' PT Chartered Accountant Goals Fpc Goals PT Fpc Goals Time Frame: Aug 05, 2016 Transfers (B,C,W/C) (FIM): 6 Sit to Lying (QC): 6 Lying-Sitting on Side/Bed(QC): 6 Sit to Stand (QC): 6 Rollin Roll Left to Right (QC): 6 Chair/Azf-yw-Iyqjd Xfer(QC): 6 Car Transfer (QC): 4 Gait (FIM): 6 Distance: 150' Walk 10 feet (QC): 6 Walk 10ft-Uneven Surface(QC): 6 Walk 50ft with 2 Turns (QC): 6 Walk 150 ft (QC): 6 Gait Assistive Device: Cane Large Base Quad Stairs (FIM): 2 # of Steps: 4 1 Step (curb) (QC): 4 4 Steps (QC): 4 12 Steps (QC): 88 Stairs Level Of Assist: 5 Picking up an Object (QC): 5 PT Plan Problem List Problem List: Activity Tolerance, Functional Strength, Safety, Balance, Gait, Transfer, Bed Mobility Treatment/Plan Treatment Plan: Continue Plan of Care Treatment Plan: Bed Mobility, Education, Functional Activity Madalyn, Functional Strength, Group Therapy, Gait, Safety, Therapeutic Exercise, Transfers Treatment Duration: Aug 05, 2016 Visits Per Week: 10-11 Minutes/Day (M-F): 60-90 Minutes/Day (Sat/Bryant): 15-30 Safety Risks/Education Patient Education: Gait Training, Transfer Techniques, Correct Positioning, Safety Issues Teaching Recipient: Patient Teaching Methods: Discussion Response to Teaching: Verbalize Understanding Time/GCodes Time In: 1030 Time Out: 1115 Total Billed Treatment Time: 45 Total Billed Treatment visit, GT (15m) & Ex X2 (30m) EZRA CAIN PTA Jul 24, 2016 13:33
--- NOTE | 2016-07-24 14:47 | Therapy Group Daily Note ---
Therapy Daily Group Note Patient Education Topic Home Safety, Other List Below (Assistive devices for gait) Exercises LE Seated Exercise, UE Exercise Other/Notes Pt. attended group PT OT session this date. Pt. to/from via w/c with SBA. Pt. is extremely positive, very social and smiles and encourages others with every interaction. Pt. introduced himself and shared that his the thing he is most proud of in his life is his children. Pt. shared his own experiences at home with RE: home safety and ie lighting, stairs etc. Pt. participated as well as he could in seated U&L extremity ther ex. Assistive devices for gait were demonstrated : crutches, FWW, hurry cane, ro walker and 3 WW. Pt. commented on the ro walker and states it has helped him tremendously with gait. Pt. brightens up with social situation and is a adelso attending group session. Pt to room after Rx, supportive daughter in room to visit. Ott at hand Start Time: 13:00 Stop Time: 14:15 Total Billed Treatment Time: 75 Total Billed Treatment 1,GRP TRAVON IBANEZ [facility] NURSE STAFF Jul 24, 2016 14:46
[2016-07-24] MEDS: warFARin 5 MG (COUMADIN) TAB PO SCH (17:48)
[2016-07-24] MEDS: ALFUZOSIN HCL 10 MG TAB (UROXATRAL) PO SCH (17:48)
[2016-07-24 20:54] VITALS: BP 138/77
[2016-07-24] MEDS: MELATONIN 3 MG TABLET PO SCH (20:56)
[2016-07-24] MEDS: ATORVASTATIN 40 MG (LIPITOR) TABLET PO SCH (20:56)
[2016-07-25 06:00] VITALS: BP 124/70
[2016-07-25 06:16] LABS: INR 2.7 (0.8-1.4); PROTHROMBIN TIME PATIENT 28.6 SEC (12.2-14.7)
[2016-07-25] MEDS: FERROUS SULF 325 MG (IRON) TAB PO SCH (06:27)
[2016-07-25] MEDS: ACETAMINOPHEN 500 MG TAB (TYLENOL) PO PRN (06:28)
--- NOTE | 2016-07-25 08:06 | Progress Note (SOAP) ---
Subjective Subjective/Events-last exam patient is positive. Patient is getting stronger. Patient is walking a long distance. Patient doing more things now Objective Exam Vital Signs Date Time Temp Pulse Resp B/P Pulse Ox O2 Delivery O2 Flow Rate FiO2 07/25/16 06:00 97.7 74 16 124/70 96 Room Air 07/24/16 20:54 97.2 82 20 138/77 100 Room Air I & O 07/25/16 07:00 Intake Total 2390 ml Output Total 1950 ml Balance 440 ml Capillary Refill : General Appearance: No Apparent Distress Thin HEENT: Normal ENT Inspection Neck: Full Range of Motion Normal Inspection Respiratory: Chest Non Tender Lungs Clear Normal Breath Sounds No Accessory Muscle Use No Respiratory Distress Cardiovascular: Regular Rate, Rhythm No Murmur Results Lab Laboratory Tests 07/25/16 05:35: INR Comment 2.7H, Prothrombin Time 28.6H Assessment/Plan Assessment/Plan Assess & Plan/Chief Complaint . . weakness. Previous stroke. Sepsis. UTI. Hyponatremia. History of LV thrombus. Acute kidney injury. . 07/17/16 weakness. Sepsis history. Hyponatremia. CVA on left. Patient feeling better todayarea . 06/2616. Weakness. Confusion this morning. Trouble swallowing this morning blood tests CAT scan negative. To give some IV fluids. . 07/19/16. Weakness less. Confusion better. CAT scan of the head negative. Previous stroke. Sepsis. UTI. Hyponatremia. . 07/22/16. Weakness less. More alert. No confusion. Previous stroke on left side. Left knee bothering him.. . Weakness. Previous stroke. Sepsis. Hyponatremia. Patient doing much better.. . 07/24/16. Patient states he is doing better. Patient positive area Patient has weakness of previous stroke. Tablet feelings about this patient's. . 07/25/16. Weakness. Previous CVA. Sepsis. UTI. Hyponatremia. Patient is stronger and improving and feeling positive about himself Diagnosis/Problems: Clinical Quality Measures DVT/VTE Risk/Contraindication: Risk Factor Score Per Nursin RFS Level Per Nursing on Admit: 4+=Very High VAIBHAV ZAIDI DO Jul 25, 2016 08:06
[2016-07-25] MEDS: GABAPENTIN 300 MG (NEURONTIN) CAP PO SCH ×3 (08:29→20:24)
[2016-07-25] MEDS: CARVEDILOL 6.25 MG (COREG) TAB PO SCH ×2 (08:29→20:24)
[2016-07-25] MEDS: CLOPIDOGREL 75 MG (PLAVIX) TABLET PO SCH (08:29)
[2016-07-25] MEDS: LACTOBACILLUS Acidoph/Bulgar (LACTINEX/FLORANEX) TAB PO SCH ×2 (08:29→20:24)
[2016-07-25] MEDS: OMEGA 3 (FISH OIL) 1000 MG CAP PO SCH (08:29)
[2016-07-25] MEDS: LORATADINE (CLARITIN) 10 MG TAB PO SCH (08:29)
[2016-07-25] MEDS: FAMOTIDINE 20 MG (PEPCID) TABLET PO SCH ×2 (08:29→20:24)
[2016-07-25] MEDS: SACUBITRIL/VALSARTAN 24/26 MG (ENTRESTO) TABLET PO SCH ×2 (08:29→20:24)
[2016-07-25] MEDS: MAGNESIUM OXIDE (MAG-OX)400 MG TAB PO SCH (08:29)
[2016-07-25] MEDS: DOCUSATE SODIUM 100 MG (COLACE) CAP PO SCH (08:29)
[2016-07-25] MEDS: DICLOFENAC 1% GEL 100 GM (VOLTAREN) TUBE TOP SCH ×4 (08:30→20:25)
[2016-07-25] MEDS: POLYETHYLENE GLYCOL 17 GM (MIRALAX) PACK PO SCH (08:30)
[2016-07-25] MEDS: FLUTICASONE NASAL SPRAY (FLONASE) 16 GM BTL NS SCH (08:31)
--- NOTE | 2016-07-25 09:45 | Physical Therapy Daily Note ---
PT Daily Note-Current Subjective Patient in wheelchair pre tx, agrees to PT, pleasant and cooperative, no complaints of pain. Appearance Patient in bathroom on toilet post tx with nurse call, instructed to call nurse when he is done. Mental Status Patient Orientation: Normal For Age Transfers Functional [place] Measure 0=Not Assessed/NA 4=Minimal Assistance 1=Total Assistance 5=Supervision or Setup 2=Maximal Assistance 6=Modified [place] 3=Moderate Assistance 7=Complete IndependenceIRFPAI Quality Coding Scale 6 Independent with activity with or without an assistive device 5 Patient requires set up or clean up by helper. Patient completes activity by themselves 4 Supervision or touching assist (CGA). [place] provide cues , steadying assist 3 The helper provides less than half the effort to complete the activity 2 The helper provides more than half the effort to complete the activity 1 Dependent. The helper does all the effort to complete an activity 7 Patient refused to complete or attempt activity 9 The patient did not perform the activity before the current illness or injury 88 Not attempted due to Medical conditions or safety concerns Transfers (B, C, W/C) (FIM): 4 Sit to/from Stand: 4 Bed to/from Chair: 4 Patient only needed CGA with sit to stand and stand pivot. He still needs occasional cues for hand placement. Gait Training Gait (FIM): 2 Distance: 130', 100' Gait Level of Assist: 4 Gait Persons Needed: 1 Gait Assistive Device: Cane Large Base Quad Left AFO, occasional trouble advancing his left leg, no LOB, slow. Exercises NuStep Minutes: 15 NuStep Workload: 4 Treatments transfers, ambulation, functional strengthening Assessment Current Status: Fair Progress improving strength and endurance PT Short Term Goals Short Term Goals Time Frame: Jul 22, 2016 Gait (FIM): 2 Gait Distance Comment: 70' Gait Level of Assist: 5 Gait Assistive Device: Cane Large Base Quad Wheelchair Distance: 150' PT Chcf Goals Chcf Goals PT Chcf Goals Time Frame: Aug 05, 2016 Transfers (B,C,W/C) (FIM): 6 Sit to Lying (QC): 6 Lying-Sitting on Side/Bed(QC): 6 Sit to Stand (QC): 6 Rollin Roll Left to Right (QC): 6 Chair/Oaa-vm-Kdqaj Xfer(QC): 6 Car Transfer (QC): 4 Gait (FIM): 6 Distance: 150' Walk 10 feet (QC): 6 Walk 10ft-Uneven Surface(QC): 6 Walk 50ft with 2 Turns (QC): 6 Walk 150 ft (QC): 6 Gait Assistive Device: Cane Large Base Quad Stairs (FIM): 2 # of Steps: 4 1 Step (curb) (QC): 4 4 Steps (QC): 4 12 Steps (QC): 88 Stairs Level Of Assist: 5 Picking up an Object (QC): 5 PT Plan Problem List Problem List: Activity Tolerance, Functional Strength, Safety, Balance, Gait, Transfer, Bed Mobility, ROM Treatment/Plan Treatment Plan: Continue Plan of Care Treatment Plan: Bed Mobility, Education, Functional Activity Madalyn, Functional Strength, Group Therapy, Gait, Safety, Therapeutic Exercise, Transfers Treatment Duration: Aug 05, 2016 Visits Per Week: 10-11 Minutes/Day (M-F): 60-90 Minutes/Day (Sat/Bryant): 15-30 Safety Risks/Education Patient Education: Gait Training, Transfer Techniques, Safety Issues Teaching Recipient: Patient Teaching Methods: Demonstration, Discussion Response to Teaching: Reinforcement Needed Time/GCodes Time In: 900 Time Out: 945 Total Billed Treatment Time: 45 Total Billed Treatment 1 visit GT 30 min EX 15 min ADONAY MULLEN PT Jul 25, 2016 09:45
--- NOTE | 2016-07-25 11:25 | Speech Therapy Daily Note ---
Speech Daily Progress Note Subjective The patient was seated upright in bed upon entrance. The patient greeted the clinician appropriately and agreed to participate in dysphagia and cognitive therapy on this date. Objective - A repetition of the cognitive screen was completed to ensure appropriate decision making ability. The [place] Cognitive Assessment (MoCA) was completed (Version One) with the following results. - Visuospatial/Executive: The patient was able to accurately draw clock and complete trail-making. The patient was unable to accurately copy a cube. - Naming: The patient was able to name three items accurately. - Memory: The patient was able to recall five of five words immediately and three of five words following a five minute delay. - Attention: The patient was unable to repeat five digits forward, however, could repeat three digits in reverse. - Language: The patient was able to repeat short phrases and state the similarity between two words. - Orientation: The patient was oriented to date, month, year, day, place, and city. - The patient demonstrated a score of +25/30 which correlates to a minimal cognitive impairment in the areas of delayed recall and visuospatial tasks. Dysphagia Exercises: The patient demonstrated high accuracy with dysphagia exercises on this date, displaying 90% accuracy independently. Assessment Assessment Current Status: Good Progress Treatment Plan Continue Plan of Care Communication Comprehension: 5 Expression: 5 Social Cognition Social Interaction: 6 Problem Solvin Memory: 5 Speech Short Term Goals Short Term Goals Short Term Goals 1. The patient will demonstrate oral motor exercises with 90% accuracy, independently. 2. The patient will demonstrate 90% intelligible with functional phrases, independently. 3. The patient will demonstrate dysphagia exercises with 90% accuracy, independently. Time Frame-STG: Two Weeks Speech Group Home Goals Light Rail Signal Technician Goals 1. The patient will demonstrate improved expressive communication for increased safety and function with ADL's. 2. The patient will tolerate the least restrictive diet without signs/symptoms of aspiration or laryngeal penetration. Progressing. (07/19/16) Time Frame: Four Weeks Comprehension: 6 Expression: 5 Social Interaction: 5 Problem Solvin Memory: 5 Speech-Plan Treatment Plan Speech Therapy Treatment Plan: Continue Plan of Care Continue skilled dysphagia therapy to focus on pharyngeal and laryngeal strengthening exercises. Treatment Duration: Aug 12, 2016 # of days/week Four to five Visits Per Week: Four to Five Minutes/Day (M-F): 30-45 Rehab Potential: Fair Safety Risks/Education Teaching Recipient: Patient Teaching Methods: Demonstration, Discussion Response to Teaching: Return Demonstration Education Topics Provided: Dysphagia Exercises Time Speech Therapy Time In: 10:15 Speech Therapy Time Out: 10:45 Total Billed Time: 30 Billed Treatment Time 1- JANY REBOLLEDO ELIZ[facility]ETH ST Jul 25, 2016 11:24
--- NOTE | 2016-07-25 11:36 | Occupational Ther Daily Note ---
OT Current Status-Daily Note Subjective Pt alert, sitting up in bed eating breakfast. Pt agreed to shower. Pt c/o L shldr aching, no other mention of pain. Mental Status/Objective Patient Orientation: Person, Place, Time, Situation Functional [place] Measure 0=Not Assessed/NA 4=Minimal Assistance 1=Total Assistance 5=Supervision or Setup 2=Maximal Assistance 6=Modified [place] 3=Moderate Assistance 7=Complete [place] ADL-Treatment With HOB raised, pt was able to go from supine to sitting EOB by self. Pt then transferred with min A from bed to w/c. Transported to bathroom, min A to transfer from w/c to toilet with assist to pull pants down over hips. Pt was able to sit on BSC and cleanse self after voiding. Min A to transfer back to w/ c then min A to transfer to tub seat using grabbars and w/c. Using grabbars, hand held shower, tub seat and long handle sponge pt able to bathe self with supervision for safety. Pt dried all areas except buttocks. Min A transfer from tub seat to w/c using grabbars. Min A to brush dentures and open packages to cleanse dentures. Pt able to open and apply denture cream and place dentures into mouth by self. Pt took increased time to complete bathing and grooming. After therapy, pt sitting in w/c. Nrsg notified that pt required assistance to don shoes and jacket. Call light/phone in reach. All needs met in room. Functional [place] Measure 0=Not Assessed/NA 4=Minimal Assistance 1=Total Assistance 5=Supervision or Setup 2=Maximal Assistance 6=Modified [place] 3=Moderate Assistance 7=Complete IndependenceIRFPAI Quality Coding Scale 6 Independent with activity with or without an assistive device 5 Patient requires set up or clean up by helper. Patient completes activity by themselves 4 Supervision or touching assist (CGA). [place] provide cues , steadying assist 3 The helper provides less than half the effort to complete the activity 2 The helper provides more than half the effort to complete the activity 1 Dependent. The helper does all the effort to complete an activity 7 Patient refused to complete or attempt activity 9 The patient did not perform the activity before the current illness or injury 88 Not attempted due to Medical conditions or safety concerns Eating (FIM): 5 (Assist to open small packages with one hand then is able to complete all other eating by self.) Grooming (FIM): 4 Bathing (FIM): 5 Bathing Location: L Arm, R Arm, L Upper Leg, R Upper Leg, L Lower Leg ( including foot), R Lower Leg (including foot), Chest, Abdomen, Buttocks, Perineal Area Toileting (FIM): 4 Transfers (B, C, W/C) (FIM): 4 Toilet/Commode Transfer (FIM): 4 Shower Transfer(FIM): 4 OT Short Term Goals Short Term Goals Time Frame: Jul 22, 2016 Bathing(FIM): 4 Upper Body Dressing(FIM): 4 Lower Body Dressing(FIM): 3 Toileting(FIM): 4 Toilet/Commode Transfer(FIM): 4 Shower Transfer(FIM): 4 (CGA) Additional Short Term Goals: 1-Demonstrate ADL Tasks, 2-Verbalize Understanding , 3-ImproveStrength/Madalyn 1=Demonstrate adherence to instructed precautions during ADL tasks. 2=Patient will verbalize/demonstrate understanding of assistive devices/ modifications for ADL. 3=Patient will improve strength/tolerance for activity to enable patient to perform ADL's. OT Play Writer Goals Group Home Goals Time Frame: Aug 05, 2016 Eating (FIM): 6 Eating (QC): 6 Oral Hygiene (QC): 6 Grooming(FIM): 5 Bathing(FIM): 4 Shower/Bathe Self (QC): 4 Upper Body Dressing(FIM): 6 Upper Body Dressing (QC): 6 Lower Body Dressing(FIM): 5 Lower Body Dressing (QC): 5 On/Off Footwear (QC): 4 Toileting Hygiene (QC): 5 Toilet/Commode Transfer(FIM): 5 Toilet/Commode Transfer (QC): 5 Shower Transfer(FIM): 5 Comprehension(FIM): 6 Expression (FIM): 5 Social Interaction(FIM): 5 Problem Solving(FIM): 5 Memory(FIM): 5 Additional Goals: 1-Demonstrate ADL Tasks, 2-Verbalize Understanding, 3- ImproveStrength/Madalyn 1=Demonstrate adherence to instructed precautions during ADL tasks. 2=Patient will verbalize/demonstrate understanding of assistive devices/ modifications for ADL. 3=Patient will improve strength/tolerance for activity to enable patient to perform ADL's. OT Education/Plan Problem List/Assessment Pt to benefit from skilled OT intervention for ADL training, transfers, ROM/ strengthening, and safety education to maximize level of independence and allow safe discharge. Discharge Recommendations Plan/Recommendations: Continue POC Treatment Plan/Plan of Care Patient would benefit from OT for education, treatment and training to promote independence in ADL's, mobility, safety and/or upper extremity function for ADL' s. Plan of Care: ADL Retraining, Functional Mobility, Group Exercise/Act as Ind, Orthotic Fitting/Training, UE Funct Exercise/Act, UE Neuromus Re-Ed/Coord Treatment Duration: Aug 05, 2016 Visits Per Week: 10-11 Minutes/Day (M-F): 60-90 Minutes/Day (Sat/Bryant): PRN Agreement: Yes Rehab Potential: Fair Time/GCodes Start Time: 07:15 Stop Time: 08:15 Total Time Billed (hr/min): 60 Billed Treatment Time 1 visit-ADL 4 (60 min) TULIO BERGMAN Jul 25, 2016 11:36
--- NOTE | 2016-07-25 11:39 | PM & R (SOAP) Progress Note ---
Subjective Subjective/Events-last exam Patient was seen in his room this AM.Patient SBA for transfers.Tolerating current meds Using his own AFO Objective Exam Last Set of Vital Signs Vital Signs Date Time Temp Pulse Resp B/P Pulse Ox O2 Delivery O2 Flow Rate FiO2 07/25/16 06:00 97.7 74 16 124/70 96 Room Air Capillary Refill : I&O Intake and Output 07/25/16 00:00 Intake Total 2440 ml Output Total 1650 ml Balance 790 ml Intake Oral 2440 ml Output Urine Total 1650 ml # Voids 3 General: Alert, Oriented X3, Cooperative, No Acute Distress HEENT: Atraumatic, PERRLA, EOMI, Mucous Memb Moist/[place] Neck: Supple, No JVD Lungs: Clear to Auscultation Heart: Regular Rate Abdomen: Normal Bowel Sounds, Soft, No Tenderness Extremities: No Edema Neuro: Other (Doing better with improved strength and speech Very alert Self propels w/c on unit) Results Lab Laboratory Tests 07/23/16 05:30: INR Comment 2.6H, Prothrombin Time 27.8H 07/24/16 05:07: INR Comment 2.5H, Prothrombin Time 27.1H 07/25/16 05:35: INR Comment 2.7H, Prothrombin Time 28.6H Assessment/Plan Assessment General debil secondary to UTI with sepsis treated OSH Change in mental status w/u in progress-will d/c baclofen-and now improved s/p 1 lter of IVFS and with Baclfen d/cd 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
--- NOTE | 2016-07-25 14:18 | Occupational Ther Daily Note ---
OT Current Status-Daily Note Subjective Pt alert, sitting in w/c. Pt agreed to therapy. No c/o pain at this time. Mental Status/Objective Patient Orientation: Person, Place, Time, Situation Functional [place] Measure 0=Not Assessed/NA 4=Minimal Assistance 1=Total Assistance 5=Supervision or Setup 2=Maximal Assistance 6=Modified [place] 3=Moderate Assistance 7=Complete [place] ADL-Treatment Pt maneuvered w/c by self to therapy gym. Pt transferred to therapy mat from w/ c with min A. PROM, massage and moist hot pack completed. Moist hot pack placed on L hand while ROM and massage to L UE completed. Pt tolerated well, pain with end range of hand and elbow. Sling given to pt to wear during ambulation to decrease strain on L shldr. After therapy, pt lying on therapy mat, PT took over care of pt. All needs met. Functional [place] Measure 0=Not Assessed/NA 4=Minimal Assistance 1=Total Assistance 5=Supervision or Setup 2=Maximal Assistance 6=Modified [place] 3=Moderate Assistance 7=Complete IndependenceIRFPAI Quality Coding Scale 6 Independent with activity with or without an assistive device 5 Patient requires set up or clean up by helper. Patient completes activity by themselves 4 Supervision or touching assist (CGA). [place] provide cues , steadying assist 3 The helper provides less than half the effort to complete the activity 2 The helper provides more than half the effort to complete the activity 1 Dependent. The helper does all the effort to complete an activity 7 Patient refused to complete or attempt activity 9 The patient did not perform the activity before the current illness or injury 88 Not attempted due to Medical conditions or safety concerns OT Short Term Goals Short Term Goals Time Frame: Jul 22, 2016 Bathing(FIM): 4 Upper Body Dressing(FIM): 4 Lower Body Dressing(FIM): 3 Toileting(FIM): 4 Toilet/Commode Transfer(FIM): 4 Shower Transfer(FIM): 4 (CGA) Additional Short Term Goals: 1-Demonstrate ADL Tasks, 2-Verbalize Understanding , 3-ImproveStrength/Madalyn 1=Demonstrate adherence to instructed precautions during ADL tasks. 2=Patient will verbalize/demonstrate understanding of assistive devices/ modifications for ADL. 3=Patient will improve strength/tolerance for activity to enable patient to perform ADL's. OT Catering Staff Member Goals Catering Staff Member Goals Time Frame: Aug 05, 2016 Eating (FIM): 6 Eating (QC): 6 Oral Hygiene (QC): 6 Grooming(FIM): 5 Bathing(FIM): 4 Shower/Bathe Self (QC): 4 Upper Body Dressing(FIM): 6 Upper Body Dressing (QC): 6 Lower Body Dressing(FIM): 5 Lower Body Dressing (QC): 5 On/Off Footwear (QC): 4 Toileting Hygiene (QC): 5 Toilet/Commode Transfer(FIM): 5 Toilet/Commode Transfer (QC): 5 Shower Transfer(FIM): 5 Comprehension(FIM): 6 Expression (FIM): 5 Social Interaction(FIM): 5 Problem Solving(FIM): 5 Memory(FIM): 5 Additional Goals: 1-Demonstrate ADL Tasks, 2-Verbalize Understanding, 3- ImproveStrength/Madalyn 1=Demonstrate adherence to instructed precautions during ADL tasks. 2=Patient will verbalize/demonstrate understanding of assistive devices/ modifications for ADL. 3=Patient will improve strength/tolerance for activity to enable patient to perform ADL's. OT Education/Plan Problem List/Assessment Pt to benefit from skilled OT intervention for ADL training, transfers, ROM/ strengthening, and safety education to maximize level of independence and allow safe discharge. Discharge Recommendations Plan/Recommendations: Continue POC Treatment Plan/Plan of Care Patient would benefit from OT for education, treatment and training to promote independence in ADL's, mobility, safety and/or upper extremity function for ADL' s. Plan of Care: ADL Retraining, Functional Mobility, Group Exercise/Act as Ind, Orthotic Fitting/Training, UE Funct Exercise/Act, UE Neuromus Re-Ed/Coord Treatment Duration: Aug 05, 2016 Visits Per Week: 10-11 Minutes/Day (M-F): 60-90 Minutes/Day (Sat/Bryant): PRN Agreement: Yes Rehab Potential: Fair Time/GCodes Start Time: 13:00 Stop Time: 13:30 Total Time Billed (hr/min): 30 Billed Treatment Time 1 visit-FA 2 (30 min) TULIO BERGMAN Jul 25, 2016 14:18
--- NOTE | 2016-07-25 15:12 | Physical Therapy Daily Note ---
PT Daily Note-Current Subjective Wants to try the stairs. Verbalizes that he understands he should go up with his right leg but apprehensive about going down first with the left. Pain Numeric Pain Scale: 0-No Pain Location: No Pain Reported Mental Status Patient Orientation: Person, Place, Time, Situation Transfers Functional [place] Measure 0=Not Assessed/NA 4=Minimal Assistance 1=Total Assistance 5=Supervision or Setup 2=Maximal Assistance 6=Modified [place] 3=Moderate Assistance 7=Complete IndependenceIRFPAI Quality Coding Scale 6 Independent with activity with or without an assistive device 5 Patient requires set up or clean up by helper. Patient completes activity by themselves 4 Supervision or touching assist (CGA). [place] provide cues , steadying assist 3 The helper provides less than half the effort to complete the activity 2 The helper provides more than half the effort to complete the activity 1 Dependent. The helper does all the effort to complete an activity 7 Patient refused to complete or attempt activity 9 The patient did not perform the activity before the current illness or injury 88 Not attempted due to Medical conditions or safety concerns Pt transferred sup to sit Edge of mat with min assist to lift his torso. Applied shoulder sling to provide support due to heaviness of arm. Sit to stand with CGA with cues for hand placement. Pt transferred from walking to the wheelchair with a front on approach, abandoning his cane. Educated pt on need to keep his cane, turn completely to the chair and then sit down. Verbalized understanding. Pt was aware of need to check wheelchair brakes with each transfer. Gait Training Does the Patient Walk?: Yes Pt ambulated x 50 ft with 2 turns with cane with close CGA. Pt then ambulated up/down 4 steps with handrail and close CGA to min assist 1 step at a time and cues for sequencing and safety. Slow on the stairs and took extra time to advance left LE but able to do so without extra assist Wheelchair Training Does the Pt Use a Wheelchair?: Yes Wheelchair (FIM): 6 Wheelchair Distance: 3=150 ft Type of Wheelchair: Manual Assessment Current Status: Good Progress Difficulty advancing left LE on the stairs but able to do so. Pt was happy to have tried the stairs. Functional mobility progressing but continues to need external assist and safety reminders. PT Short Term Goals Short Term Goals Time Frame: Jul 22, 2016 Gait (FIM): 2 Gait Distance Comment: 70' Gait Level of Assist: 5 Gait Assistive Device: Cane Large Base Quad Wheelchair Distance: 150' PT Drafter Patent Goals Drafter Patent Goals PT Care Home Goals Time Frame: Aug 05, 2016 Transfers (B,C,W/C) (FIM): 6 Sit to Lying (QC): 6 Lying-Sitting on Side/Bed(QC): 6 Sit to Stand (QC): 6 Rollin Roll Left to Right (QC): 6 Chair/Oee-wt-Xlive Xfer(QC): 6 Car Transfer (QC): 4 Gait (FIM): 6 Distance: 150' Walk 10 feet (QC): 6 Walk 10ft-Uneven Surface(QC): 6 Walk 50ft with 2 Turns (QC): 6 Walk 150 ft (QC): 6 Gait Assistive Device: Cane Large Base Quad Stairs (FIM): 2 # of Steps: 4 1 Step (curb) (QC): 4 4 Steps (QC): 4 12 Steps (QC): 88 Stairs Level Of Assist: 5 Picking up an Object (QC): 5 PT Plan Problem List Problem List: Activity Tolerance, Functional Strength, Safety, Balance, Gait, Transfer, Bed Mobility Treatment/Plan Treatment Plan: Continue Plan of Care Treatment Plan: Bed Mobility, Education, Functional Activity Madalyn, Functional Strength, Group Therapy, Gait, Safety, Therapeutic Exercise, Transfers Treatment Duration: Aug 05, 2016 Visits Per Week: 10-11 Minutes/Day (M-F): 60-90 Minutes/Day (Sat/Bryant): 15-30 Safety Risks/Education Patient Education: Transfer Techniques, Safety Issues Teaching Recipient: Patient Teaching Methods: Demonstration, Discussion Response to Teaching: Verbalize Understanding, Return Demonstration Time/GCodes Time In: 1330 Time Out: 1400 Total Billed Treatment Time: 30 Total Billed Treatment visit GT 30 TULIO SOUSA PT Jul 25, 2016 15:12
[2016-07-25] MEDS: ALFUZOSIN HCL 10 MG TAB (UROXATRAL) PO SCH (17:30)
[2016-07-25] MEDS: warFARin 5 MG (COUMADIN) TAB PO SCH (17:30)
[2016-07-25 18:22] VITALS: BP 127/76
[2016-07-25] MEDS: MELATONIN 3 MG TABLET PO SCH (20:24)
[2016-07-25] MEDS: ALPRAZolam 0.5 MG (XANAX) TAB PO SCH (20:24)
[2016-07-25] MEDS: ATORVASTATIN 40 MG (LIPITOR) TABLET PO SCH (20:24)
[2016-07-26] MEDS: ACETAMINOPHEN 500 MG TAB (TYLENOL) PO PRN (01:17)
[2016-07-26 05:24] LABS: INR 2.6 (0.8-1.4)
[2016-07-26 06:00] VITALS: BP 143/76
[2016-07-26] MEDS: FERROUS SULF 325 MG (IRON) TAB PO SCH (06:24)
--- NOTE | 2016-07-26 07:47 | Progress Note (SOAP) ---
Subjective Subjective/Events-last exam patient feels with physical therapy and occupational therapy he is improving. Patient voices no complaints Previous stroke on left side Objective Exam Vital Signs Date Time Temp Pulse Resp B/P Pulse Ox O2 Delivery O2 Flow Rate FiO2 07/26/16 06:00 98.7 80 22 143/76 98 Room Air 07/25/16 21:00 Room Air 07/25/16 18:22 97.4 77 16 127/76 99 I & O 07/26/16 06:59 Intake Total 920 ml Output Total 750 ml Balance 170 ml Capillary Refill : General Appearance: No Apparent Distress Thin HEENT: Normal ENT Inspection Neck: Normal Inspection Respiratory: Chest Non Tender Lungs Clear Normal Breath Sounds No Accessory Muscle Use No Respiratory Distress Cardiovascular: Regular Rate, Rhythm No Murmur Gastrointestinal: non tender soft Results Lab Laboratory Tests 07/26/16 05:05: INR Comment 2.6H, Prothrombin Time 28.0H Assessment/Plan Assessment/Plan Assess & Plan/Chief Complaint . . weakness. Previous stroke. Sepsis. UTI. Hyponatremia. History of LV thrombus. Acute kidney injury. . 07/17/16 weakness. Sepsis history. Hyponatremia. CVA on left. Patient feeling better todayarea . 06/2616. Weakness. Confusion this morning. Trouble swallowing this morning blood tests CAT scan negative. To give some IV fluids. . 07/19/16. Weakness less. Confusion better. CAT scan of the head negative. Previous stroke. Sepsis. UTI. Hyponatremia. . 07/22/16. Weakness less. More alert. No confusion. Previous stroke on left side. Left knee bothering him.. . Weakness. Previous stroke. Sepsis. Hyponatremia. Patient doing much better.. . 07/24/16. Patient states he is doing better. Patient positive area Patient has weakness of previous stroke. Tablet feelings about this patient's. . 07/25/16. Weakness. Previous CVA. Sepsis. UTI. Hyponatremia. Patient is stronger and improving and feeling positive about himself. . 07/26/16. Weakness. Previous CVA. Sepsis. UTI. Hyponatremia. Patient had a good workup with physical therapy and occupational therapy yesterday.. Patient feels he is getting stronger Diagnosis/Problems: Clinical Quality Measures DVT/VTE Risk/Contraindication: Risk Factor Score Per Nursin RFS Level Per Nursing on Admit: 4+=Very High GELLENDER,VAIBHAV A DO Jul 26, 2016 07:47
[2016-07-26] MEDS: LACTOBACILLUS Acidoph/Bulgar (LACTINEX/FLORANEX) TAB PO SCH ×3 (08:33→22:20)
[2016-07-26] MEDS: CLOPIDOGREL 75 MG (PLAVIX) TABLET PO SCH (08:33)
[2016-07-26] MEDS: DOCUSATE SODIUM 100 MG (COLACE) CAP PO SCH (08:33)
[2016-07-26] MEDS: POLYETHYLENE GLYCOL 17 GM (MIRALAX) PACK PO SCH (08:33)
[2016-07-26] MEDS: SACUBITRIL/VALSARTAN 24/26 MG (ENTRESTO) TABLET PO SCH ×2 (08:33→22:20)
[2016-07-26] MEDS: GABAPENTIN 300 MG (NEURONTIN) CAP PO SCH ×3 (08:33→22:20)
[2016-07-26] MEDS: MAGNESIUM OXIDE (MAG-OX)400 MG TAB PO SCH ×2 (08:33→08:48)
[2016-07-26] MEDS: LORATADINE (CLARITIN) 10 MG TAB PO SCH (08:33)
[2016-07-26] MEDS: OMEGA 3 (FISH OIL) 1000 MG CAP PO SCH (08:33)
[2016-07-26] MEDS: CARVEDILOL 6.25 MG (COREG) TAB PO SCH ×2 (08:33→22:20)
[2016-07-26] MEDS: FAMOTIDINE 20 MG (PEPCID) TABLET PO SCH ×2 (08:33→22:20)
[2016-07-26] MEDS: FLUTICASONE NASAL SPRAY (FLONASE) 16 GM BTL NS SCH (08:34)
[2016-07-26] MEDS: DICLOFENAC 1% GEL 100 GM (VOLTAREN) TUBE TOP SCH ×4 (08:35→22:22)
--- NOTE | 2016-07-26 09:35 | Speech Therapy Daily Note ---
Speech Daily Progress Note Subjective The patient was seated upright in wheelchair upon entrance. The patient was agreeable to dysphagia therapy on this date. Objective Dysphagia Exercises: The patient demonstrated high accuracy with dysphagia exercises on this date. The patient intermittently requested direct modeling, however, independently displayed exercises following one occurrence. The patient denied questions or concerns regarding the recommended exercises and swallowing strategies. Assessment Assessment Current Status: Good Progress Treatment Plan Continue Plan of Care Communication Comprehension: 5 Expression: 5 Social Cognition Social Interaction: 6 Problem Solvin Memory: 5 Speech Short Term Goals Short Term Goals Short Term Goals 1. The patient will demonstrate oral motor exercises with 90% accuracy, independently. 2. The patient will demonstrate 90% intelligible with functional phrases, independently. 3. The patient will demonstrate dysphagia exercises with 90% accuracy, independently. Time Frame-STG: Two Weeks Speech [facility] Goals Corporate Training Manager Goals 1. The patient will demonstrate improved expressive communication for increased safety and function with ADL's. 2. The patient will tolerate the least restrictive diet without signs/symptoms of aspiration or laryngeal penetration. Progressing. (07/19/16) Time Frame: Four Weeks Comprehension: 6 Expression: 5 Social Interaction: 5 Problem Solvin Memory: 5 Speech-Plan Treatment Plan Speech Therapy Treatment Plan: Continue Plan of Care Continue skilled dysphagia exercises, as recommended. Treatment Duration: Aug 12, 2016 # of days/week Four to Five Visits Per Week: Four to Five Minutes/Day (M-F): 30-45 Rehab Potential: Fair Safety Risks/Education Teaching Recipient: Patient Teaching Methods: Demonstration Response to Teaching: Return Demonstration Education Topics Provided: Dysphagia Exercises Time Speech Therapy Time In: 09:00 Speech Therapy Time Out: 09:30 Total Billed Time: 30 Billed Treatment Time 1, MARI SANTOS Jul 26, 2016 09:35
--- NOTE | 2016-07-26 11:00 | Physical Therapy Daily Note ---
PT Daily Note-Current Subjective Patient in therapy gym in his wheelchair pre tx, just got through with OT, no complaints of pain. Appearance Patient in wheelchair in his room post tx, he has nurse call, phone, tray, all needs met. Mental Status Patient Orientation: Normal For Age Transfers Functional [place] Measure 0=Not Assessed/NA 4=Minimal Assistance 1=Total Assistance 5=Supervision or Setup 2=Maximal Assistance 6=Modified [place] 3=Moderate Assistance 7=Complete IndependenceIRFPAI Quality Coding Scale 6 Independent with activity with or without an assistive device 5 Patient requires set up or clean up by helper. Patient completes activity by themselves 4 Supervision or touching assist (CGA). [place] provide cues , steadying assist 3 The helper provides less than half the effort to complete the activity 2 The helper provides more than half the effort to complete the activity 1 Dependent. The helper does all the effort to complete an activity 7 Patient refused to complete or attempt activity 9 The patient did not perform the activity before the current illness or injury 88 Not attempted due to Medical conditions or safety concerns Transfers (B, C, W/C) (FIM): 4 Sit to/from Stand: 4 Bed to/from Chair: 4 CGA for transfers, no assistance needed to stand today Gait Training Gait (FIM): 2 Distance: 130', 100' Gait Level of Assist: 4 Gait Persons Needed: 1 Gait Assistive Device: Cane Large Base Quad left AFO, no LOB, slow ambulation, he seemed to fatigue easier today Exercises Seated Therapy Exercises: Hip flexion Seated Reps: 20 Standing: Mini squats, Step-ups Standing Reps: 10 sidestepping in parallel bars x2, cues to not drag foot Assessment Current Status: Fair Progress improving balance but seemed to be more fatigued today. PT Short Term Goals Short Term Goals Time Frame: Jul 22, 2016 Gait (FIM): 2 Gait Distance Comment: 70' Gait Level of Assist: 5 Gait Assistive Device: Cane Large Base Quad Wheelchair Distance: 150' PT Chief Deputy Court Clerk Goals Correction Goals PT Correction Goals Time Frame: Aug 05, 2016 Transfers (B,C,W/C) (FIM): 6 Sit to Lying (QC): 6 Lying-Sitting on Side/Bed(QC): 6 Sit to Stand (QC): 6 Rollin Roll Left to Right (QC): 6 Chair/Djj-kp-Oahkb Xfer(QC): 6 Car Transfer (QC): 4 Gait (FIM): 6 Distance: 150' Walk 10 feet (QC): 6 Walk 10ft-Uneven Surface(QC): 6 Walk 50ft with 2 Turns (QC): 6 Walk 150 ft (QC): 6 Gait Assistive Device: Cane Large Base Quad Stairs (FIM): 2 # of Steps: 4 1 Step (curb) (QC): 4 4 Steps (QC): 4 12 Steps (QC): 88 Stairs Level Of Assist: 5 Picking up an Object (QC): 5 PT Plan Problem List Problem List: Activity Tolerance, Functional Strength, Safety, Balance, Gait, Transfer, Bed Mobility, ROM Treatment/Plan Treatment Plan: Continue Plan of Care Treatment Plan: Bed Mobility, Education, Functional Activity Madalyn, Functional Strength, Group Therapy, Gait, Safety, Therapeutic Exercise, Transfers Treatment Duration: Aug 05, 2016 Visits Per Week: 10-11 Minutes/Day (M-F): 60-90 Minutes/Day (Sat/Bryant): 15-30 Safety Risks/Education Patient Education: Gait Training, Transfer Techniques, Safety Issues Teaching Recipient: Patient Teaching Methods: Demonstration, Discussion Response to Teaching: Reinforcement Needed Time/GCodes Time In: 1015 Time Out: 1100 Total Billed Treatment Time: 45 Total Billed Treatment 1 visit EX 15 min GT 30 min ADONAY MULLEN PT Jul 26, 2016 11:00
--- NOTE | 2016-07-26 11:31 | Occupational Ther Daily Note ---
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 Pt agreed to therapy. Pt stated that he was very tired. Mental Status/Objective Patient Orientation: Person, Place, Time, Situation Functional [place] Measure 0=Not Assessed/NA 4=Minimal Assistance 1=Total Assistance 5=Supervision or Setup 2=Maximal Assistance 6=Modified [place] 3=Moderate Assistance 7=Complete [place] ADL-Treatment Sitting in w/c, pt was able to doff/don socks by self. Pt then required assistance to don L shoe and is able to don R shoe by self. Min A to don button up shirt. Pt completes these tasks slow and methodically. Functional [place] Measure 0=Not Assessed/NA 4=Minimal Assistance 1=Total Assistance 5=Supervision or Setup 2=Maximal Assistance 6=Modified [place] 3=Moderate Assistance 7=Complete IndependenceIRFPAI Quality Coding Scale 6 Independent with activity with or without an assistive device 5 Patient requires set up or clean up by helper. Patient completes activity by themselves 4 Supervision or touching assist (CGA). [place] provide cues , steadying assist 3 The helper provides less than half the effort to complete the activity 2 The helper provides more than half the effort to complete the activity 1 Dependent. The helper does all the effort to complete an activity 7 Patient refused to complete or attempt activity 9 The patient did not perform the activity before the current illness or injury 88 Not attempted due to Medical conditions or safety concerns Other Treatment Pt maneuvered w/c to therapy gym by self. Pt complete arm bike per request of pt. L hand Andrew wrapped on handle due to inability to grasp. Pt was able to rotate bike around for 10 min with frequent breaks due to pain in shldr. Pt was able to demonstrated active movement in scapula, bicep and tricep. Support to shldr to decrease pain with active movement. Pt then completed table top exercises with arm skate to decrease resistance for L UE. Pt complete protraction/retraction with shldr by pushing UE's in a horizontal plane with arm skate, no pain noted with exercise. After therapy, pt left in care of PT. All needs met. OT Short Term Goals Short Term Goals Time Frame: Jul 22, 2016 Bathing(FIM): 4 Upper Body Dressing(FIM): 4 Lower Body Dressing(FIM): 3 Toileting(FIM): 4 Toilet/Commode Transfer(FIM): 4 Shower Transfer(FIM): 4 (CGA) Additional Short Term Goals: 1-Demonstrate ADL Tasks, 2-Verbalize Understanding , 3-ImproveStrength/Madalyn 1=Demonstrate adherence to instructed precautions during ADL tasks. 2=Patient will verbalize/demonstrate understanding of assistive devices/ modifications for ADL. 3=Patient will improve strength/tolerance for activity to enable patient to perform ADL's. OT Fpc Goals Fpc Goals Time Frame: Aug 05, 2016 Eating (FIM): 6 Eating (QC): 6 Oral Hygiene (QC): 6 Grooming(FIM): 5 Bathing(FIM): 4 Shower/Bathe Self (QC): 4 Upper Body Dressing(FIM): 6 Upper Body Dressing (QC): 6 Lower Body Dressing(FIM): 5 Lower Body Dressing (QC): 5 On/Off Footwear (QC): 4 Toileting Hygiene (QC): 5 Toilet/Commode Transfer(FIM): 5 Toilet/Commode Transfer (QC): 5 Shower Transfer(FIM): 5 Comprehension(FIM): 6 Expression (FIM): 5 Social Interaction(FIM): 5 Problem Solving(FIM): 5 Memory(FIM): 5 Additional Goals: 1-Demonstrate ADL Tasks, 2-Verbalize Understanding, 3- ImproveStrength/Madalyn 1=Demonstrate adherence to instructed precautions during ADL tasks. 2=Patient will verbalize/demonstrate understanding of assistive devices/ modifications for ADL. 3=Patient will improve strength/tolerance for activity to enable patient to perform ADL's. OT Education/Plan Problem List/Assessment Pt to benefit from skilled OT intervention for ADL training, transfers, ROM/ strengthening, and safety education to maximize level of independence and allow safe discharge. Discharge Recommendations Plan/Recommendations: Continue POC Treatment Plan/Plan of Care Patient would benefit from OT for education, treatment and training to promote independence in ADL's, mobility, safety and/or upper extremity function for ADL' s. Plan of Care: ADL Retraining, Functional Mobility, Group Exercise/Act as Ind, Orthotic Fitting/Training, UE Funct Exercise/Act, UE Neuromus Re-Ed/Coord Treatment Duration: Aug 05, 2016 Visits Per Week: 10-11 Minutes/Day (M-F): 60-90 Minutes/Day (Sat/Bryant): PRN Agreement: Yes Rehab Potential: Fair Time/GCodes Start Time: 09:30 Stop Time: 10:15 Total Time Billed (hr/min): 45 Billed Treatment Time 1 visit-EX 1 (20 min) FA 2 (25 min) TULIO BERGMAN Jul 26, 2016 11:31
--- NOTE | 2016-07-26 14:27 | Therapy Group Daily Note ---
Therapy Daily Group Note Patient Education Topic Other List Below (ARU description) Exercises LE Seated Exercise, UE Exercise Other/Notes Pt maneuvered w/c from room to ARU commons area for OT/PT group. Group consisted of introductions (name, place living, silliest thing done in childhood ), ARU description, seated UE/LE exercises, socialization, communication, problem solving and critical thinking. Pt was able to contribute to discussions and provide guidance for other pt's with problem solving. Pt was able to complete seated UE/LE exercises with R side and attempted with L side. After therapy, pt sitting in w/c with call light/phone in reach. All needs met in room. Start Time: 13:00 Stop Time: 14:00 Total Billed Treatment Time: 60 Total Billed Treatment 1-GRP TULIO BERGMAN Jul 26, 2016 14:27
[2016-07-26 18:00] VITALS: BP 128/82
[2016-07-26] MEDS: warFARin 5 MG (COUMADIN) TAB PO SCH (18:46)
[2016-07-26] MEDS: ALFUZOSIN HCL 10 MG TAB (UROXATRAL) PO SCH (18:46)
[2016-07-26] MEDS: MELATONIN 3 MG TABLET PO SCH (22:20)
[2016-07-26] MEDS: ATORVASTATIN 40 MG (LIPITOR) TABLET PO SCH (22:20)
[2016-07-26] MEDS: ALPRAZolam 0.5 MG (XANAX) TAB PO SCH (22:20)
[2016-07-27] MEDS: MELATONIN 3 MG TABLET PO SCH (00:46)
[2016-07-27 05:12] VITALS: BP 131/74
[2016-07-27 06:40] LABS: INR 2.4 (0.8-1.4); PROTHROMBIN TIME PATIENT 26.3 SEC (12.2-14.7)
[2016-07-27] MEDS: FERROUS SULF 325 MG (IRON) TAB PO SCH (06:57)
[2016-07-27] MEDS: CARVEDILOL 6.25 MG (COREG) TAB PO SCH ×2 (09:32→20:09)
[2016-07-27] MEDS: CLOPIDOGREL 75 MG (PLAVIX) TABLET PO SCH (09:32)
[2016-07-27] MEDS: OMEGA 3 (FISH OIL) 1000 MG CAP PO SCH (09:32)
[2016-07-27] MEDS: FAMOTIDINE 20 MG (PEPCID) TABLET PO SCH ×2 (09:32→20:09)
[2016-07-27] MEDS: SACUBITRIL/VALSARTAN 24/26 MG (ENTRESTO) TABLET PO SCH ×2 (09:32→20:09)
[2016-07-27] MEDS: LACTOBACILLUS Acidoph/Bulgar (LACTINEX/FLORANEX) TAB PO SCH ×2 (09:32→20:08)
[2016-07-27] MEDS: GABAPENTIN 300 MG (NEURONTIN) CAP PO SCH ×3 (09:32→20:09)
[2016-07-27] MEDS: MAGNESIUM OXIDE (MAG-OX)400 MG TAB PO SCH (09:32)
[2016-07-27] MEDS: LORATADINE (CLARITIN) 10 MG TAB PO SCH (09:32)
[2016-07-27] MEDS: POLYETHYLENE GLYCOL 17 GM (MIRALAX) PACK PO SCH (09:44)
[2016-07-27] MEDS: DICLOFENAC 1% GEL 100 GM (VOLTAREN) TUBE TOP SCH ×4 (09:44→20:09)
[2016-07-27] MEDS: FLUTICASONE NASAL SPRAY (FLONASE) 16 GM BTL NS SCH (09:48)
[2016-07-27] MEDS: ACETAMINOPHEN 500 MG TAB (TYLENOL) PO PRN ×2 (09:48→20:08)
[2016-07-27] MEDS: DOCUSATE SODIUM 100 MG (COLACE) CAP PO SCH (10:06)
--- NOTE | 2016-07-27 10:12 | Physical Therapy Daily Note ---
PT Daily Note-Current Subjective States that she is feeling good. Pain Numeric Pain Scale: 0-No Pain Transfers Functional [place] Measure 0=Not Assessed/NA 4=Minimal Assistance 1=Total Assistance 5=Supervision or Setup 2=Maximal Assistance 6=Modified [place] 3=Moderate Assistance 7=Complete IndependenceIRFPAI Quality Coding Scale 6 Independent with activity with or without an assistive device 5 Patient requires set up or clean up by helper. Patient completes activity by themselves 4 Supervision or touching assist (CGA). [place] provide cues , steadying assist 3 The helper provides less than half the effort to complete the activity 2 The helper provides more than half the effort to complete the activity 1 Dependent. The helper does all the effort to complete an activity 7 Patient refused to complete or attempt activity 9 The patient did not perform the activity before the current illness or injury 88 Not attempted due to Medical conditions or safety concerns Transfers (B, C, W/C) (FIM): 5 Sit to Stand (QC): 5 Gait Training Does the Patient Walk?: Yes Gait (FIM): 2 Distance (FIM): 1=005-88 ft Distance: 60' x 3 Walk 50 ft with 2 Turns(QC): 5 Gait Level of Assist: 5 Gait Persons Needed: 1 Gait Assistive Device: Walker Donnie Assessment Current Status: Excellent Progress Patient had some dizziness today during gait. PT Short Term Goals Short Term Goals Time Frame: Jul 22, 2016 Gait (FIM): 2 Gait Distance Comment: 70' Gait Level of Assist: 5 Gait Assistive Device: Cane Large Base Quad Wheelchair Distance: 150' PT Drawer In Dobby Loom Goals Drawer In Dobby Loom Goals PT Drawer In Dobby Loom Goals Time Frame: Aug 05, 2016 Transfers (B,C,W/C) (FIM): 6 Sit to Lying (QC): 6 Lying-Sitting on Side/Bed(QC): 6 Sit to Stand (QC): 6 Rollin Roll Left to Right (QC): 6 Chair/Kzw-wv-Zaiva Xfer(QC): 6 Car Transfer (QC): 4 Gait (FIM): 6 Distance: 150' Walk 10 feet (QC): 6 Walk 10ft-Uneven Surface(QC): 6 Walk 50ft with 2 Turns (QC): 6 Walk 150 ft (QC): 6 Gait Assistive Device: Cane Large Base Quad Stairs (FIM): 2 # of Steps: 4 1 Step (curb) (QC): 4 4 Steps (QC): 4 12 Steps (QC): 88 Stairs Level Of Assist: 5 Picking up an Object (QC): 5 PT Plan Treatment/Plan Treatment Plan: Continue Plan of Care Treatment Plan: Bed Mobility, Education, Functional Activity Madalyn, Functional Strength, Group Therapy, Gait, Safety, Therapeutic Exercise, Transfers Treatment Duration: Aug 05, 2016 Visits Per Week: 10-11 Minutes/Day (M-F): 60-90 Minutes/Day (Sat/Bryant): 15-30 Time/GCodes Time In: 0950 Time Out: 1010 Total Billed Treatment Time: 20' Total Billed Treatment 1, GT x 20 G Codes Necessary: Yes SAMUEL CURRY PT Jul 27, 2016 10:12
[2016-07-27 17:53] VITALS: BP 114/73
[2016-07-27] MEDS: ALFUZOSIN HCL 10 MG TAB (UROXATRAL) PO SCH (17:54)
[2016-07-27] MEDS: warFARin 5 MG (COUMADIN) TAB PO SCH (17:54)
[2016-07-27] MEDS: ATORVASTATIN 40 MG (LIPITOR) TABLET PO SCH (20:09)
[2016-07-27] MEDS: ALPRAZolam 0.5 MG (XANAX) TAB PO SCH (20:09)
[2016-07-28 05:28] VITALS: BP 114/73
[2016-07-28] MEDS: FERROUS SULF 325 MG (IRON) TAB PO SCH (06:05)
[2016-07-28 07:05] LABS: INR 2.3 (0.8-1.4); PROTHROMBIN TIME PATIENT 25.4 SEC (12.2-14.7)
[2016-07-28] MEDS: CLOPIDOGREL 75 MG (PLAVIX) TABLET PO SCH (10:14)
[2016-07-28] MEDS: LORATADINE (CLARITIN) 10 MG TAB PO SCH (10:14)
[2016-07-28] MEDS: SACUBITRIL/VALSARTAN 24/26 MG (ENTRESTO) TABLET PO SCH ×2 (10:14→20:03)
[2016-07-28] MEDS: CARVEDILOL 6.25 MG (COREG) TAB PO SCH ×2 (10:14→20:03)
[2016-07-28] MEDS: OMEGA 3 (FISH OIL) 1000 MG CAP PO SCH (10:14)
[2016-07-28] MEDS: FAMOTIDINE 20 MG (PEPCID) TABLET PO SCH ×2 (10:14→20:03)
[2016-07-28] MEDS: LACTOBACILLUS Acidoph/Bulgar (LACTINEX/FLORANEX) TAB PO SCH ×2 (10:15→20:03)
[2016-07-28] MEDS: ACETAMINOPHEN 500 MG TAB (TYLENOL) PO PRN ×2 (10:15→20:04)
[2016-07-28] MEDS: MAGNESIUM OXIDE (MAG-OX)400 MG TAB PO SCH (10:15)
[2016-07-28] MEDS: GABAPENTIN 300 MG (NEURONTIN) CAP PO SCH ×3 (10:15→20:03)
[2016-07-28] MEDS: DOCUSATE SODIUM 100 MG (COLACE) CAP PO SCH (10:15)
[2016-07-28] MEDS: POLYETHYLENE GLYCOL 17 GM (MIRALAX) PACK PO SCH (10:16)
[2016-07-28] MEDS: DICLOFENAC 1% GEL 100 GM (VOLTAREN) TUBE TOP SCH ×4 (10:16→20:04)
[2016-07-28] MEDS: FLUTICASONE NASAL SPRAY (FLONASE) 16 GM BTL NS SCH (10:16)
[2016-07-28 16:21] VITALS: BP 128/71
[2016-07-28] MEDS: ALFUZOSIN HCL 10 MG TAB (UROXATRAL) PO SCH (17:03)
[2016-07-28] MEDS: warFARin 5 MG (COUMADIN) TAB PO SCH (17:03)
[2016-07-28] MEDS: ALPRAZolam 0.5 MG (XANAX) TAB PO SCH (20:03)
[2016-07-28] MEDS: ATORVASTATIN 40 MG (LIPITOR) TABLET PO SCH (20:03)
[2016-07-28] MEDS: MELATONIN 3 MG TABLET PO SCH (20:03)
[2016-07-29 05:46] LABS: INR 2.7 (0.8-1.4); PROTHROMBIN TIME PATIENT 28.4 SEC (12.2-14.7)
[2016-07-29 05:49] VITALS: BP 128/79
[2016-07-29] MEDS: FERROUS SULF 325 MG (IRON) TAB PO SCH (06:12)
--- NOTE | 2016-07-29 08:13 | Progress Note (SOAP) ---
Subjective Subjective/Events-last exam PATIENT FEELS HE IS IMPROVING. Patient having trouble getting out of bed. Patient has a headache today we'll get some Tylenol INR 2.7 therapeutic Objective Exam Vital Signs Date Time Temp Pulse Resp B/P Pulse Ox O2 Delivery O2 Flow Rate FiO2 07/29/16 05:49 97.3 78 16 128/79 98 Room Air 07/28/16 16:21 97.8 76 18 128/71 97 Room Air I & O 07/29/16 07:00 Intake Total 1730 ml Output Total 1450 ml Balance 280 ml Capillary Refill : General Appearance: No Apparent Distress Thin HEENT: Normal ENT Inspection Neck: Normal Inspection Respiratory: Chest Non Tender Lungs Clear Normal Breath Sounds No Accessory Muscle Use No Respiratory Distress Cardiovascular: Regular Rate, Rhythm No Murmur Gastrointestinal: non tender soft Results Lab Laboratory Tests 07/29/16 05:30: INR Comment 2.7H, Prothrombin Time 28.4H Assessment/Plan Assessment/Plan Assess & Plan/Chief Complaint . . weakness. Previous stroke. Sepsis. UTI. Hyponatremia. History of LV thrombus. Acute kidney injury. . 07/17/16 weakness. Sepsis history. Hyponatremia. CVA on left. Patient feeling better todayarea . 06/2616. Weakness. Confusion this morning. Trouble swallowing this morning blood tests CAT scan negative. To give some IV fluids. . 07/19/16. Weakness less. Confusion better. CAT scan of the head negative. Previous stroke. Sepsis. UTI. Hyponatremia. . 07/22/16. Weakness less. More alert. No confusion. Previous stroke on left side. Left knee bothering him.. . Weakness. Previous stroke. Sepsis. Hyponatremia. Patient doing much better.. . 07/24/16. Patient states he is doing better. Patient positive area Patient has weakness of previous stroke. Tablet feelings about this patient's. . 07/25/16. Weakness. Previous CVA. Sepsis. UTI. Hyponatremia. Patient is stronger and improving and feeling positive about himself. . 07/26/16. Weakness. Previous CVA. Sepsis. UTI. Hyponatremia. Patient had a good workup with physical therapy and occupational therapy yesterday.. Patient feels he is getting stronger. . 07/29/16. Weakness is improving. Previous stroke. Sepsis history. UTI. Hyponatremia history patient had trouble getting out of bed and getting exercises with this. Patient has headache this morning Diagnosis/Problems: Clinical Quality Measures DVT/VTE Risk/Contraindication: Risk Factor Score Per Nursin RFS Level Per Nursing on Admit: 4+=Very High VAIBHAV ZAIDI DO Jul 29, 2016 08:12
[2016-07-29] MEDS: ACETAMINOPHEN 500 MG TAB (TYLENOL) PO PRN (08:30)
[2016-07-29] MEDS: POLYETHYLENE GLYCOL 17 GM (MIRALAX) PACK PO SCH (09:00)
[2016-07-29] MEDS: DICLOFENAC 1% GEL 100 GM (VOLTAREN) TUBE TOP SCH ×4 (09:00→20:39)
--- NOTE | 2016-07-29 09:00 | Physical Therapy Daily Note ---
PT Daily Note-Current Subjective Patient in wheelchair pre tx, agrees to PT, states he has a slight headache, nurse aware. Appearance Patient in wheelchair post tx, is mod I with wheelchair mobility. Mental Status Patient Orientation: Normal For Age Transfers Functional [place] Measure 0=Not Assessed/NA 4=Minimal Assistance 1=Total Assistance 5=Supervision or Setup 2=Maximal Assistance 6=Modified [place] 3=Moderate Assistance 7=Complete IndependenceIRFPAI Quality Coding Scale 6 Independent with activity with or without an assistive device 5 Patient requires set up or clean up by helper. Patient completes activity by themselves 4 Supervision or touching assist (CGA). [place] provide cues , steadying assist 3 The helper provides less than half the effort to complete the activity 2 The helper provides more than half the effort to complete the activity 1 Dependent. The helper does all the effort to complete an activity 7 Patient refused to complete or attempt activity 9 The patient did not perform the activity before the current illness or injury 88 Not attempted due to Medical conditions or safety concerns Transfers (B, C, W/C) (FIM): 4 Scootin Rollin Supine to/from Sit: 4 Sit to/from Stand: 5 Bed to/from Chair: 4 Patient can perform bed mobility with SBA and cues, but occasionally needs a little assist with his left leg getting into and out of bed. Gait Training Gait (FIM): 4 Distance: 150' Gait Level of Assist: 4 Gait Persons Needed: 1 Gait Assistive Device: FWW almost SBA but needs assist with balance on occasion when he get fatigued Exercises NuStep Minutes: 15 NuStep Workload: 5 Treatments Practiced bed mobility and supine to sit to both sides several times, ambulation , transfer training, functional strengthening Assessment Current Status: Fair Progress steady slow improvement with balance and endurance PT Short Term Goals Short Term Goals Time Frame: Jul 22, 2016 Gait (FIM): 2 Gait Distance Comment: 70' Gait Level of Assist: 5 Gait Assistive Device: Cane Large Base Quad Wheelchair Distance: 150' PT Director Athletic Goals Director Athletic Goals PT Halfway Goals Time Frame: Aug 05, 2016 Transfers (B,C,W/C) (FIM): 6 Sit to Lying (QC): 6 Lying-Sitting on Side/Bed(QC): 6 Sit to Stand (QC): 6 Rollin Roll Left to Right (QC): 6 Chair/Yht-bb-Yoxij Xfer(QC): 6 Car Transfer (QC): 4 Gait (FIM): 6 Distance: 150' Walk 10 feet (QC): 6 Walk 10ft-Uneven Surface(QC): 6 Walk 50ft with 2 Turns (QC): 6 Walk 150 ft (QC): 6 Gait Assistive Device: Cane Large Base Quad Stairs (FIM): 2 # of Steps: 4 1 Step (curb) (QC): 4 4 Steps (QC): 4 12 Steps (QC): 88 Stairs Level Of Assist: 5 Picking up an Object (QC): 5 PT Plan Problem List Problem List: Activity Tolerance, Functional Strength, Safety, Balance, Gait, Transfer, Bed Mobility, ROM Treatment/Plan Treatment Plan: Continue Plan of Care Treatment Plan: Bed Mobility, Education, Functional Activity Madalyn, Functional Strength, Group Therapy, Gait, Safety, Therapeutic Exercise, Transfers Treatment Duration: Aug 05, 2016 Visits Per Week: 10-11 Minutes/Day (M-F): 60-90 Minutes/Day (Sat/Bryant): 15-30 Safety Risks/Education Patient Education: Gait Training, Transfer Techniques, Correct Positioning, Safety Issues Teaching Recipient: Patient Teaching Methods: Demonstration, Discussion Response to Teaching: Reinforcement Needed Time/GCodes Time In: 800 Time Out: 900 Total Billed Treatment Time: 60 Total Billed Treatment 1 visit GT 15 min FA 30 min EX 15 min ADONAY MULLEN PT Jul 29, 2016 09:00
[2016-07-29] MEDS: DOCUSATE SODIUM 100 MG (COLACE) CAP PO SCH (09:55)
[2016-07-29] MEDS: OMEGA 3 (FISH OIL) 1000 MG CAP PO SCH (09:55)
[2016-07-29] MEDS: MAGNESIUM OXIDE (MAG-OX)400 MG TAB PO SCH (09:55)
[2016-07-29] MEDS: GABAPENTIN 300 MG (NEURONTIN) CAP PO SCH ×3 (09:55→20:32)
[2016-07-29] MEDS: SACUBITRIL/VALSARTAN 24/26 MG (ENTRESTO) TABLET PO SCH ×2 (09:55→21:52)
[2016-07-29] MEDS: CLOPIDOGREL 75 MG (PLAVIX) TABLET PO SCH (09:55)
[2016-07-29] MEDS: LACTOBACILLUS Acidoph/Bulgar (LACTINEX/FLORANEX) TAB PO SCH ×2 (09:55→20:27)
[2016-07-29] MEDS: CARVEDILOL 6.25 MG (COREG) TAB PO SCH ×2 (09:56→21:52)
[2016-07-29] MEDS: LORATADINE (CLARITIN) 10 MG TAB PO SCH (09:56)
[2016-07-29] MEDS: FAMOTIDINE 20 MG (PEPCID) TABLET PO SCH ×2 (09:56→20:28)
[2016-07-29] MEDS: FLUTICASONE NASAL SPRAY (FLONASE) 16 GM BTL NS SCH (10:03)
--- NOTE | 2016-07-29 11:13 | Speech Therapy Daily Note ---
Speech Daily Progress Note Subjective The patient was seated upright in wheelchair upon entrance. The patient was agreeable to dysphagia therapy on this date. Objective Dysphagia Exercises: The patient demonstrated high accuracy with dysphagia exercises on this date. The patient intermittently requested direct modeling, however, independently displayed exercises following one occurrence. The patient denied questions or concerns regarding the recommended exercises and swallowing strategies. Assessment Assessment Current Status: Good Progress Treatment Plan Continue Plan of Care Communication Comprehension: 5 Expression: 5 Social Cognition Social Interaction: 6 Problem Solvin Memory: 5 Speech Short Term Goals Short Term Goals Short Term Goals 1. The patient will demonstrate oral motor exercises with 90% accuracy, independently. 2. The patient will demonstrate 90% intelligible with functional phrases, independently. 3. The patient will demonstrate dysphagia exercises with 90% accuracy, independently. Time Frame-STG: Two Weeks Speech Care Home Goals Finisher Card Tender Goals 1. The patient will demonstrate improved expressive communication for increased safety and function with ADL's. 2. The patient will tolerate the least restrictive diet without signs/symptoms of aspiration or laryngeal penetration. Progressing. (07/19/16) Time Frame: Four Weeks Comprehension: 6 Expression: 5 Social Interaction: 5 Problem Solvin Memory: 5 Speech-Plan Treatment Plan Speech Therapy Treatment Plan: Continue Plan of Care Skilled dysphagia exercises to target pharyngeal and laryngeal strengthening. Treatment Duration: Aug 12, 2016 # of days/week Four to Five Visits Per Week: Four to Five Minutes/Day (M-F): 30-45 Rehab Potential: Fair Safety Risks/Education Teaching Recipient: Patient Teaching Methods: Demonstration, Handout, Discussion Response to Teaching: Return Demonstration, Reinforcement Needed Education Topics Provided: Dysphagia Exercises Time Speech Therapy Time In: 10:25 Speech Therapy Time Out: 10:55 Total Billed Time: 30 Billed Treatment Time JANY Devlin MARI CALLOWAY Jul 29, 2016 11:13
--- NOTE | 2016-07-29 11:54 | Occupational Ther Daily Note ---
OT Current Status-Daily Note Subjective Pt. reports discomfort only when left UE is stretched beyond end point. However , this subsides with rest and no pain is reported. Appearance Pt. is up in chair. States that he showered yesterday. Is already dressed today. Mental Status/Objective Patient Orientation: Person, Place Functional [place] Measure 0=Not Assessed/NA 4=Minimal Assistance 1=Total Assistance 5=Supervision or Setup 2=Maximal Assistance 6=Modified [place] 3=Moderate Assistance 7=Complete Power ADL-Treatment Functional [place] Measure 0=Not Assessed/NA 4=Minimal Assistance 1=Total Assistance 5=Supervision or Setup 2=Maximal Assistance 6=Modified [place] 3=Moderate Assistance 7=Complete IndependenceIRFPAI Quality Coding Scale 6 Independent with activity with or without an assistive device 5 Patient requires set up or clean up by helper. Patient completes activity by themselves 4 Supervision or touching assist (CGA). [place] provide cues , steadying assist 3 The helper provides less than half the effort to complete the activity 2 The helper provides more than half the effort to complete the activity 1 Dependent. The helper does all the effort to complete an activity 7 Patient refused to complete or attempt activity 9 The patient did not perform the activity before the current illness or injury 88 Not attempted due to Medical conditions or safety concerns Other Treatment Began treatment in pt's room. Pt. states that his biggest problem is getting into/out of bed. Pt. able to stand and transfer to bed with CGA. Attempted multiple times to lay down and get left foot into bed. Unable to do this. Put chair at end of bed. Pt. attempted to lay down and get left foot onto chair, which is shorter than bed, and then foot into bed. However, unable to do this as well. Pt. issued leg die barber and educated how to do it. Worked on lifting left let into bed with leg die barber. Had difficulty doing this. Transferred back to bed with min assist. Went to therapy gym. Completed gentle PROM to right shoulder. Noted significant tightness at approximately 60 degrees at shoulder flexion. Facilitated scapular movement with gentle gliding. Pt. had difficulty with this. Scapula fixed. Pt. able to self propel chair to therapy gym. Pt. practiced doffing/donning left AFO and shoe. Able to do this with increased time needed. OT then used nick wrap to wrap pt's left hand to armbike. Tolerated 4 minutes on armbike to increase ROM to left UE. Tolerated this well. Went back to room. All needs met. Education OT Patient Education: Correct positioning, Modified ADL techniques, Progress toward Goal/Update tx plan, Purpose of tx/functional activities, Reviewed precautions, Transfer techniques Teaching Recipient: Patient Teaching Methods: Demonstration, Discussion Response to Teaching: Verbalize Understanding, Return Demonstration OT Short Term Goals Short Term Goals Time Frame: Jul 22, 2016 Bathing(FIM): 4 Upper Body Dressing(FIM): 4 Lower Body Dressing(FIM): 3 Toileting(FIM): 4 Toilet/Commode Transfer(FIM): 4 Shower Transfer(FIM): 4 (CGA) Additional Short Term Goals: 1-Demonstrate ADL Tasks, 2-Verbalize Understanding , 3-ImproveStrength/Madalyn 1=Demonstrate adherence to instructed precautions during ADL tasks. 2=Patient will verbalize/demonstrate understanding of assistive devices/ modifications for ADL. 3=Patient will improve strength/tolerance for activity to enable patient to perform ADL's. OT Detective H[employer] Goals Residential Goals Time Frame: Aug 05, 2016 Eating (FIM): 6 Eating (QC): 6 Oral Hygiene (QC): 6 Grooming(FIM): 5 Bathing(FIM): 4 Shower/Bathe Self (QC): 4 Upper Body Dressing(FIM): 6 Upper Body Dressing (QC): 6 Lower Body Dressing(FIM): 5 Lower Body Dressing (QC): 5 On/Off Footwear (QC): 4 Toileting Hygiene (QC): 5 Toilet/Commode Transfer(FIM): 5 Toilet/Commode Transfer (QC): 5 Shower Transfer(FIM): 5 Comprehension(FIM): 6 Expression (FIM): 5 Social Interaction(FIM): 5 Problem Solving(FIM): 5 Memory(FIM): 5 Additional Goals: 1-Demonstrate ADL Tasks, 2-Verbalize Understanding, 3- ImproveStrength/Madalyn 1=Demonstrate adherence to instructed precautions during ADL tasks. 2=Patient will verbalize/demonstrate understanding of assistive devices/ modifications for ADL. 3=Patient will improve strength/tolerance for activity to enable patient to perform ADL's. OT Education/Plan Problem List/Assessment Assessment: Decreased Activ Tolerance, Decreased UE Strength, Dependent Transfers, Impaired Funct Balance, Impaired I ADL's, Impaired Self-Care Skills, Restricted Funct UE ROM Pt to benefit from skilled OT intervention for ADL training, transfers, ROM/ strengthening, and safety education to maximize level of independence and allow safe discharge. Discharge Recommendations Plan/Recommendations: Continue POC Therapy D/C Recommendations: Assisted Living, Occupational Therapy Home Care Treatment Plan/Plan of Care Treatment,Training & Education: Yes Patient would benefit from OT for education, treatment and training to promote independence in ADL's, mobility, safety and/or upper extremity function for ADL' s. Plan of Care: ADL Retraining, Functional Mobility, Group Exercise/Act as Ind, Orthotic Fitting/Training, UE Funct Exercise/Act, UE Neuromus Re-Ed/Coord Treatment Duration: Aug 05, 2016 Visits Per Week: 10-11 Minutes/Day (M-F): 60-90 Minutes/Day (Sat/Bryant): PRN Agreement: Yes Rehab Potential: Fair Time/GCodes Start Time: 09:30 Stop Time: 10:20 Total Time Billed (hr/min): 50 Billed Treatment Time 1, EX x 30minutes, FA x 20minutes SHERRELL SEPULVEDA OT Jul 29, 2016 11:54
--- NOTE | 2016-07-29 15:06 | Therapy Group Daily Note ---
Therapy Daily Group Note Exercises LE Seated Exercise, ROM, UE Exercise Other/Notes Pt. seen this date for group therapy. Pt. participated in memory/socialization exercises with focus to remember three things about other members of group. Pt. then participated in education regarding ways to keep memory activity during advancing age. Pt. engaged well and tolerated this well. Very social during group. Pt. also participated in group activity with memory game, in which pts. were asked to remember where specific pictures were. Pt. tolerated this as well. All needs met back in room. 1, GRP Start Time: 13:00 Stop Time: 14:05 Total Billed Treatment Time: 65 Total Billed Treatment 1, GRP SHERRELL SEPULVEDA OT Jul 29, 2016 15:06
[2016-07-29] MEDS: warFARin 5 MG (COUMADIN) TAB PO SCH (16:42)
[2016-07-29] MEDS: ALFUZOSIN HCL 10 MG TAB (UROXATRAL) PO SCH (16:42)
[2016-07-29 17:55] VITALS: BP 145/74
[2016-07-29] MEDS: ATORVASTATIN 40 MG (LIPITOR) TABLET PO SCH (20:27)
[2016-07-29] MEDS: ALPRAZolam 0.5 MG (XANAX) TAB PO SCH (20:27)
[2016-07-29] MEDS: MELATONIN 3 MG TABLET PO SCH (21:00)
[2016-07-29 21:55] VITALS: BP 111/68
[2016-07-30 05:05] VITALS: BP 112/69
[2016-07-30] MEDS: ACETAMINOPHEN 500 MG TAB (TYLENOL) PO PRN (05:30)
[2016-07-30] MEDS: FERROUS SULF 325 MG (IRON) TAB PO SCH (06:00)
[2016-07-30 06:07] LABS: INR 2.9 (0.8-1.4); PROTHROMBIN TIME PATIENT 30.3 SEC (12.2-14.7)
--- NOTE | 2016-07-30 08:02 | Progress Note (SOAP) ---
Subjective Subjective/Events-last exam patient feeling better and doing better. Patient already took a shower this morning. Patient voices no complaints Objective Exam Vital Signs Date Time Temp Pulse Resp B/P Pulse Ox O2 Delivery O2 Flow Rate FiO2 07/30/16 05:05 98.2 68 18 112/69 99 Room Air 07/29/16 21:55 67 111/68 07/29/16 21:00 Room Air 07/29/16 17:55 97.8 81 18 145/74 98 Room Air 07/29/16 09:00 Room Air I & O 07/30/16 07:00 Intake Total 4150 ml Output Total 1000 ml Balance 3150 ml Capillary Refill : General Appearance: No Apparent Distress Thin HEENT: Normal ENT Inspection Neck: Full Range of Motion Normal Inspection Respiratory: Chest Non Tender Lungs Clear Normal Breath Sounds No Accessory Muscle Use No Respiratory Distress Cardiovascular: Regular Rate, Rhythm No Murmur Results Lab Laboratory Tests 07/30/16 04:54: INR Comment 2.9H, Prothrombin Time 30.3H Assessment/Plan Assessment/Plan Assess & Plan/Chief Complaint . . weakness. Previous stroke. Sepsis. UTI. Hyponatremia. History of LV thrombus. Acute kidney injury. . 07/17/16 weakness. Sepsis history. Hyponatremia. CVA on left. Patient feeling better todayarea . 06/2616. Weakness. Confusion this morning. Trouble swallowing this morning blood tests CAT scan negative. To give some IV fluids. . 07/19/16. Weakness less. Confusion better. CAT scan of the head negative. Previous stroke. Sepsis. UTI. Hyponatremia. . 07/22/16. Weakness less. More alert. No confusion. Previous stroke on left side. Left knee bothering him.. . Weakness. Previous stroke. Sepsis. Hyponatremia. Patient doing much better.. . 07/24/16. Patient states he is doing better. Patient positive area Patient has weakness of previous stroke. Tablet feelings about this patient's. . 07/25/16. Weakness. Previous CVA. Sepsis. UTI. Hyponatremia. Patient is stronger and improving and feeling positive about himself. . 07/26/16. Weakness. Previous CVA. Sepsis. UTI. Hyponatremia. Patient had a good workup with physical therapy and occupational therapy yesterday.. Patient feels he is getting stronger. . 07/29/16. Weakness is improving. Previous stroke. Sepsis history. UTI. Hyponatremia history patient had trouble getting out of bed and getting exercises with this. Patient has headache this morning. . 07/30/16. Weakness. Previous stroke. Sepsis. UTI. Hyponatremia resolved. Patient doing better and improving Diagnosis/Problems: Clinical Quality Measures DVT/VTE Risk/Contraindication: Risk Factor Score Per Nursin RFS Level Per Nursing on Admit: 4+=Very High VAIBHAV ZAIDI DO Jul 30, 2016 08:01
--- NOTE | 2016-07-30 08:43 | Physical Therapy Daily Note ---
PT Daily Note-Current Subjective Patient in wheelchair pre tx, agrees to PT. States he does not have any pain but is very tired after just having a shower. Appearance Patient in wheelchair post tx, is mod I with wheelchair mobility and can go back to his room by himself. Mental Status Patient Orientation: Normal For Age Transfers Functional [place] Measure 0=Not Assessed/NA 4=Minimal Assistance 1=Total Assistance 5=Supervision or Setup 2=Maximal Assistance 6=Modified [place] 3=Moderate Assistance 7=Complete IndependenceIRFPAI Quality Coding Scale 6 Independent with activity with or without an assistive device 5 Patient requires set up or clean up by helper. Patient completes activity by themselves 4 Supervision or touching assist (CGA). [place] provide cues , steadying assist 3 The helper provides less than half the effort to complete the activity 2 The helper provides more than half the effort to complete the activity 1 Dependent. The helper does all the effort to complete an activity 7 Patient refused to complete or attempt activity 9 The patient did not perform the activity before the current illness or injury 88 Not attempted due to Medical conditions or safety concerns Transfers (B, C, W/C) (FIM): 4 Sit to/from Stand: 4 Bed to/from Chair: 4 Gait Training Gait (FIM): 2 Distance: 100' Gait Level of Assist: 4 Gait Persons Needed: 1 Gait Assistive Device: Cane Large Base Quad Left AFO, patient did need min assist for one LOB Exercises Standing: Marching, Sit to Stand Standing Reps: 20 Sideways walking in parallel bars x 3, standing on left leg repeatedly for as long as he can for a total of 5 min Treatments transfers, ambulation, functional strengthening Assessment Current Status: Fair Progress Patient still making progress but he was very fatigued this morning and actually had a large LOB while ambulating. PT Short Term Goals Short Term Goals Time Frame: Jul 22, 2016 Gait (FIM): 2 Gait Distance Comment: 70' Gait Level of Assist: 5 Gait Assistive Device: Cane Large Base Quad Wheelchair Distance: 150' PT Snf Goals Licensing Worker Goals PT Licensing Worker Goals Time Frame: Aug 05, 2016 Transfers (B,C,W/C) (FIM): 6 Sit to Lying (QC): 6 Lying-Sitting on Side/Bed(QC): 6 Sit to Stand (QC): 6 Rollin Roll Left to Right (QC): 6 Chair/Xnx-qn-Shxqx Xfer(QC): 6 Car Transfer (QC): 4 Gait (FIM): 6 Distance: 150' Walk 10 feet (QC): 6 Walk 10ft-Uneven Surface(QC): 6 Walk 50ft with 2 Turns (QC): 6 Walk 150 ft (QC): 6 Gait Assistive Device: Cane Large Base Quad Stairs (FIM): 2 # of Steps: 4 1 Step (curb) (QC): 4 4 Steps (QC): 4 12 Steps (QC): 88 Stairs Level Of Assist: 5 Picking up an Object (QC): 5 PT Plan Problem List Problem List: Activity Tolerance, Functional Strength, Safety, Balance, Gait, Transfer, Bed Mobility, ROM Treatment/Plan Treatment Plan: Continue Plan of Care Treatment Plan: Bed Mobility, Education, Functional Activity Madalyn, Functional Strength, Group Therapy, Gait, Safety, Therapeutic Exercise, Transfers Treatment Duration: Aug 05, 2016 Visits Per Week: 10-11 Minutes/Day (M-F): 60-90 Minutes/Day (Sat/Bryant): 15-30 Safety Risks/Education Patient Education: Gait Training, Transfer Techniques, Safety Issues Teaching Recipient: Patient Teaching Methods: Demonstration, Discussion Response to Teaching: Reinforcement Needed Time/GCodes Time In: 800 Time Out: 845 Total Billed Treatment Time: 45 Total Billed Treatment 1 visit GT 15 min EX 30 min ADONAY MULLEN PT Jul 30, 2016 08:42
[2016-07-30] MEDS: CARVEDILOL 6.25 MG (COREG) TAB PO SCH ×2 (09:00→21:05)
[2016-07-30] MEDS: SACUBITRIL/VALSARTAN 24/26 MG (ENTRESTO) TABLET PO SCH ×2 (09:00→21:00)
[2016-07-30] MEDS: POLYETHYLENE GLYCOL 17 GM (MIRALAX) PACK PO SCH (09:00)
[2016-07-30] MEDS: CLOPIDOGREL 75 MG (PLAVIX) TABLET PO SCH (10:01)
[2016-07-30] MEDS: DOCUSATE SODIUM 100 MG (COLACE) CAP PO SCH (10:01)
[2016-07-30] MEDS: LACTOBACILLUS Acidoph/Bulgar (LACTINEX/FLORANEX) TAB PO SCH ×2 (10:01→21:05)
[2016-07-30] MEDS: FAMOTIDINE 20 MG (PEPCID) TABLET PO SCH ×2 (10:02→21:05)
[2016-07-30] MEDS: MAGNESIUM OXIDE (MAG-OX)400 MG TAB PO SCH (10:03)
[2016-07-30] MEDS: GABAPENTIN 300 MG (NEURONTIN) CAP PO SCH ×3 (10:04→21:05)
[2016-07-30] MEDS: OMEGA 3 (FISH OIL) 1000 MG CAP PO SCH (10:04)
[2016-07-30] MEDS: LORATADINE (CLARITIN) 10 MG TAB PO SCH (10:04)
[2016-07-30] MEDS: FLUTICASONE NASAL SPRAY (FLONASE) 16 GM BTL NS SCH (10:05)
[2016-07-30] MEDS: DICLOFENAC 1% GEL 100 GM (VOLTAREN) TUBE TOP SCH ×4 (10:05→21:00)
--- NOTE | 2016-07-30 12:54 | Occupational Ther Daily Note ---
OT Current Status-Daily Note Subjective Pt alert, sitting in w/c eating breakfast in ARU with other pt. Pt agreed to therapy. Pt stated that his BP was low the night before. No c/o pain. Mental Status/Objective Patient Orientation: Person, Place, Time, Situation Functional [place] Measure 0=Not Assessed/NA 4=Minimal Assistance 1=Total Assistance 5=Supervision or Setup 2=Maximal Assistance 6=Modified [place] 3=Moderate Assistance 7=Complete [place] ADL-Treatment Pt maneuvered w/c to bathroom then transferred to toilet with min A, assist to pull pants down. Pt then transferred into shower using grabbars with CGA. SBA for shower using grabbars, tub seat with back, hand held shower and long handle sponge. Pt used Dycem placed on R knee then crossed L LE over R placing it on the Dycem to keep L LE from sliding off of R knee. Pt was able to don sock and pants over L foot by self. Pt donned pants up to hips then standing CGA to hike pants over hips. Min A to don shoe on L foot, completed R by self. Pt required assistance to dry R and L UE. After therapy, pt sitting in w/c with call light/phone in reach. All needs met in room. Functional [place] Measure 0=Not Assessed/NA 4=Minimal Assistance 1=Total Assistance 5=Supervision or Setup 2=Maximal Assistance 6=Modified [place] 3=Moderate Assistance 7=Complete IndependenceIRFPAI Quality Coding Scale 6 Independent with activity with or without an assistive device 5 Patient requires set up or clean up by helper. Patient completes activity by themselves 4 Supervision or touching assist (CGA). [place] provide cues , steadying assist 3 The helper provides less than half the effort to complete the activity 2 The helper provides more than half the effort to complete the activity 1 Dependent. The helper does all the effort to complete an activity 7 Patient refused to complete or attempt activity 9 The patient did not perform the activity before the current illness or injury 88 Not attempted due to Medical conditions or safety concerns Bathing (FIM): 4 Upper Body (FIM): 4 (Pt donned tack puller machine shirt by self then needed assist to don button up shirt.) Lower Body Dressing (FIM): 4 Toileting (FIM): 4 Transfers (B, C, W/C) (FIM): 4 Toilet/Commode Transfer (FIM): 4 Shower Transfer(FIM): 4 OT Short Term Goals Short Term Goals Time Frame: Jul 22, 2016 Bathing(FIM): 4 Upper Body Dressing(FIM): 4 Lower Body Dressing(FIM): 3 Toileting(FIM): 4 Toilet/Commode Transfer(FIM): 4 Shower Transfer(FIM): 4 (CGA) Additional Short Term Goals: 1-Demonstrate ADL Tasks, 2-Verbalize Understanding , 3-ImproveStrength/Madalyn 1=Demonstrate adherence to instructed precautions during ADL tasks. 2=Patient will verbalize/demonstrate understanding of assistive devices/ modifications for ADL. 3=Patient will improve strength/tolerance for activity to enable patient to perform ADL's. OT Baking Assistant Goals Baking Assistant Goals Time Frame: Aug 05, 2016 Eating (FIM): 6 Eating (QC): 6 Oral Hygiene (QC): 6 Grooming(FIM): 5 Bathing(FIM): 4 Shower/Bathe Self (QC): 4 Upper Body Dressing(FIM): 6 Upper Body Dressing (QC): 6 Lower Body Dressing(FIM): 5 Lower Body Dressing (QC): 5 On/Off Footwear (QC): 4 Toileting Hygiene (QC): 5 Toilet/Commode Transfer(FIM): 5 Toilet/Commode Transfer (QC): 5 Shower Transfer(FIM): 5 Comprehension(FIM): 6 Expression (FIM): 5 Social Interaction(FIM): 5 Problem Solving(FIM): 5 Memory(FIM): 5 Additional Goals: 1-Demonstrate ADL Tasks, 2-Verbalize Understanding, 3- ImproveStrength/Madalyn 1=Demonstrate adherence to instructed precautions during ADL tasks. 2=Patient will verbalize/demonstrate understanding of assistive devices/ modifications for ADL. 3=Patient will improve strength/tolerance for activity to enable patient to perform ADL's. OT Education/Plan Problem List/Assessment Pt to benefit from skilled OT intervention for ADL training, transfers, ROM/ strengthening, and safety education to maximize level of independence and allow safe discharge. Discharge Recommendations Plan/Recommendations: Continue POC Treatment Plan/Plan of Care Patient would benefit from OT for education, treatment and training to promote independence in ADL's, mobility, safety and/or upper extremity function for ADL' s. Plan of Care: ADL Retraining, Functional Mobility, Group Exercise/Act as Ind, Orthotic Fitting/Training, UE Funct Exercise/Act, UE Neuromus Re-Ed/Coord Treatment Duration: Aug 05, 2016 Visits Per Week: 10-11 Minutes/Day (M-F): 60-90 Minutes/Day (Sat/Bryant): PRN Agreement: Yes Rehab Potential: Fair Time/GCodes Start Time: 07:00 Stop Time: 08:00 Total Time Billed (hr/min): 60 Billed Treatment Time 1 visit-ADL 4 (60 min) TULIO BERGMAN Jul 30, 2016 12:54
--- NOTE | 2016-07-30 12:56 | PM & R (SOAP) Progress Note ---
Subjective Subjective/Events-last exam Patient was seen in his rrom this noonhour.Patient concerned re Low blood pressure at times and how he adjusts his entrestor Patient reassured Will f/u with DR Arizmendi Patient min assist for transfers.INR noted Objective Exam Last Set of Vital Signs Vital Signs Date Time Temp Pulse Resp B/P Pulse Ox O2 Delivery O2 Flow Rate FiO2 07/30/16 09:00 Room Air 07/30/16 05:05 98.2 68 18 112/69 99 Capillary Refill : I&O Intake and Output 07/30/16 00:00 Intake Total 4200 ml Output Total 1450 ml Balance 2750 ml Intake Oral 4200 ml Output Urine Total 1450 ml # Voids 3 # Bowel Movements 2 General: Alert, Oriented X3, Cooperative, No Acute Distress HEENT: Atraumatic, PERRLA, EOMI, Mucous Memb Moist/[place] Neck: Supple, No JVD Lungs: Clear to Auscultation Heart: Regular Rate Abdomen: Normal Bowel Sounds, Soft, No Tenderness Extremities: No Edema Neuro: Other (Doing better with improved strength and speech Very alert Self propels w/c on unit) Results Lab Laboratory Tests 07/28/16 06:23: INR Comment 2.3H, Prothrombin Time 25.4H 07/29/16 05:30: INR Comment 2.7H, Prothrombin Time 28.4H 07/30/16 04:54: INR Comment 2.9H, Prothrombin Time 30.3H Assessment/Plan Assessment General debil secondary to UTI with sepsis treated OSH Change in mental status w/u in progress-will d/c baclofen-and now improved s/p 1 lter of IVFS and with Baclfen d/cd 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 GRAEME GRESHAM MD Jul 30, 2016 12:56
--- NOTE | 2016-07-30 13:26 | Speech Therapy Daily Note ---
Speech Daily Progress Note Subjective The patient was seated upright in bed upon entrance. The patient reported fatigue, however, agreed to participate in dysphagia therapy on this date. To note, the patient's blood pressure has been lower than normal. Per patient, his blood pressure is the cause behind his increased fatigue on this date. Objective Dysphagia Exercises: The patient completed base of tongue, laryngeal elevation, and pharyngeal contraction exercises with good accuracy on this date, with slightly increased verbal prompting provided by the clinician. Frequent rest breaks were provided throughout the session due to the patient's increased fatigue level. Assessment Assessment Current Status: Good Progress Treatment Plan Continue Plan of Care Communication Comprehension: 5 Expression: 5 Social Cognition Social Interaction: 6 Problem Solvin Memory: 5 Speech Short Term Goals Short Term Goals Short Term Goals 1. The patient will demonstrate oral motor exercises with 90% accuracy, independently. 2. The patient will demonstrate 90% intelligible with functional phrases, independently. 3. The patient will demonstrate dysphagia exercises with 90% accuracy, independently. Time Frame-STG: Two Weeks Speech Chcf Goals Chcf Goals 1. The patient will demonstrate improved expressive communication for increased safety and function with ADL's. 2. The patient will tolerate the least restrictive diet without signs/symptoms of aspiration or laryngeal penetration. Progressing. (07/19/16) Time Frame: Four Weeks Comprehension: 6 Expression: 5 Social Interaction: 5 Problem Solvin Memory: 5 Speech-Plan Treatment Plan Speech Therapy Treatment Plan: Continue Plan of Care Skilled dysphagia therapy to strengthen base of tongue, pharyngeal, and laryngeal musculature. Treatment Duration: Aug 12, 2016 # of days/week Four to Five Visits Per Week: Four to Five Minutes/Day (M-F): 30-45 Rehab Potential: Fair Safety Risks/Education Teaching Recipient: Patient Teaching Methods: Demonstration, Handout Response to Teaching: Return Demonstration, Reinforcement Needed Education Topics Provided: Dysphagia Exercises Time Speech Therapy Time In: 09:30 Speech Therapy Time Out: 10:00 Total Billed Time: 30 Billed Treatment Time JANY Devlin MARI CALLOWAY Jul 30, 2016 13:26
--- NOTE | 2016-07-30 13:28 | Physical Therapy Daily Note ---
PT Daily Note-Current Subjective Patient in wheelchair pre tx, agrees to PT, no complaints of pain. Appearance Patient in wheelchair post tx, is mod I with wheelchair mobility. Mental Status Patient Orientation: Normal For Age Transfers Functional [place] Measure 0=Not Assessed/NA 4=Minimal Assistance 1=Total Assistance 5=Supervision or Setup 2=Maximal Assistance 6=Modified [place] 3=Moderate Assistance 7=Complete IndependenceIRFPAI Quality Coding Scale 6 Independent with activity with or without an assistive device 5 Patient requires set up or clean up by helper. Patient completes activity by themselves 4 Supervision or touching assist (CGA). [place] provide cues , steadying assist 3 The helper provides less than half the effort to complete the activity 2 The helper provides more than half the effort to complete the activity 1 Dependent. The helper does all the effort to complete an activity 7 Patient refused to complete or attempt activity 9 The patient did not perform the activity before the current illness or injury 88 Not attempted due to Medical conditions or safety concerns Transfers (B, C, W/C) (FIM): 4 Sit to/from Stand: 4 Bed to/from Chair: 4 occasional cues for safety Gait Training Gait (FIM): 2 Distance: 100' Gait Level of Assist: 4 Gait Persons Needed: 1 Gait Assistive Device: Cane Large Base Quad left AFO, CGA, no LOB, slow, poor foot clearance on left side Exercises NuStep Minutes: 12 NuStep Workload: 4 Treatments functional strengthening, ambulation, transfers Assessment Current Status: Fair Progress improving mobility PT Short Term Goals Short Term Goals Time Frame: Jul 22, 2016 Gait (FIM): 2 Gait Distance Comment: 70' Gait Level of Assist: 5 Gait Assistive Device: Cane Large Base Quad Wheelchair Distance: 150' PT Mcfp Goals Mobile Ui Developer Goals PT Mcfp Goals Time Frame: Aug 05, 2016 Transfers (B,C,W/C) (FIM): 6 Sit to Lying (QC): 6 Lying-Sitting on Side/Bed(QC): 6 Sit to Stand (QC): 6 Rollin Roll Left to Right (QC): 6 Chair/Xbs-zj-Fdwkg Xfer(QC): 6 Car Transfer (QC): 4 Gait (FIM): 6 Distance: 150' Walk 10 feet (QC): 6 Walk 10ft-Uneven Surface(QC): 6 Walk 50ft with 2 Turns (QC): 6 Walk 150 ft (QC): 6 Gait Assistive Device: Cane Large Base Quad Stairs (FIM): 2 # of Steps: 4 1 Step (curb) (QC): 4 4 Steps (QC): 4 12 Steps (QC): 88 Stairs Level Of Assist: 5 Picking up an Object (QC): 5 PT Plan Problem List Problem List: Activity Tolerance, Functional Strength, Safety, Balance, Gait, Transfer, Bed Mobility, ROM Treatment/Plan Treatment Plan: Continue Plan of Care Treatment Plan: Bed Mobility, Education, Functional Activity Madalyn, Functional Strength, Group Therapy, Gait, Safety, Therapeutic Exercise, Transfers Treatment Duration: Aug 05, 2016 Visits Per Week: 10-11 Minutes/Day (M-F): 60-90 Minutes/Day (Sat/Bryant): 15-30 Safety Risks/Education Patient Education: Gait Training, Transfer Techniques, Safety Issues Teaching Recipient: Patient Teaching Methods: Demonstration, Discussion Response to Teaching: Reinforcement Needed Time/GCodes Time In: 1300 Time Out: 1330 Total Billed Treatment Time: 30 Total Billed Treatment 1 visit EX 12 min GT 18 min ADONAY MULLEN PT Jul 30, 2016 13:28
--- NOTE | 2016-07-30 15:11 | Occupational Ther Daily Note ---
OT Current Status-Daily Note Subjective Pt sleeping in bed, woke easily to name. Pt agreed to therapy. No c/o pain. Mental Status/Objective Patient Orientation: Person, Place, Time, Situation Functional [place] Measure 0=Not Assessed/NA 4=Minimal Assistance 1=Total Assistance 5=Supervision or Setup 2=Maximal Assistance 6=Modified [place] 3=Moderate Assistance 7=Complete [place] ADL-Treatment Functional [place] Measure 0=Not Assessed/NA 4=Minimal Assistance 1=Total Assistance 5=Supervision or Setup 2=Maximal Assistance 6=Modified [place] 3=Moderate Assistance 7=Complete IndependenceIRFPAI Quality Coding Scale 6 Independent with activity with or without an assistive device 5 Patient requires set up or clean up by helper. Patient completes activity by themselves 4 Supervision or touching assist (CGA). [place] provide cues , steadying assist 3 The helper provides less than half the effort to complete the activity 2 The helper provides more than half the effort to complete the activity 1 Dependent. The helper does all the effort to complete an activity 7 Patient refused to complete or attempt activity 9 The patient did not perform the activity before the current illness or injury 88 Not attempted due to Medical conditions or safety concerns Other Treatment Pt able to go from supine to sitting EOB with HOB slightly raised using bed rails. Pt transferred from bed to w/c with CGA. Pt able to maneuver w/c through doors and reach to grasp by self. Pt was able to maneuver w/c through people and over thresholds. Pt then complete arm bike with L hand wrapped to stay on handle. Pt was able to complete 7 min at 5 babin resistance to promote strength and AROM. Pt demonstrated good shldr movement through arm bike rotation. After therapy, pt sitting in w/c in room with call light/phone in reach. All needs met in room. OT Short Term Goals Short Term Goals Time Frame: Jul 22, 2016 Bathing(FIM): 4 Upper Body Dressing(FIM): 4 Lower Body Dressing(FIM): 3 Toileting(FIM): 4 Toilet/Commode Transfer(FIM): 4 Shower Transfer(FIM): 4 (CGA) Additional Short Term Goals: 1-Demonstrate ADL Tasks, 2-Verbalize Understanding , 3-ImproveStrength/Madalyn 1=Demonstrate adherence to instructed precautions during ADL tasks. 2=Patient will verbalize/demonstrate understanding of assistive devices/ modifications for ADL. 3=Patient will improve strength/tolerance for activity to enable patient to perform ADL's. OT Assisted Goals Assisted Goals Time Frame: Aug 05, 2016 Eating (FIM): 6 Eating (QC): 6 Oral Hygiene (QC): 6 Grooming(FIM): 5 Bathing(FIM): 4 Shower/Bathe Self (QC): 4 Upper Body Dressing(FIM): 6 Upper Body Dressing (QC): 6 Lower Body Dressing(FIM): 5 Lower Body Dressing (QC): 5 On/Off Footwear (QC): 4 Toileting Hygiene (QC): 5 Toilet/Commode Transfer(FIM): 5 Toilet/Commode Transfer (QC): 5 Shower Transfer(FIM): 5 Comprehension(FIM): 6 Expression (FIM): 5 Social Interaction(FIM): 5 Problem Solving(FIM): 5 Memory(FIM): 5 Additional Goals: 1-Demonstrate ADL Tasks, 2-Verbalize Understanding, 3- ImproveStrength/Madalyn 1=Demonstrate adherence to instructed precautions during ADL tasks. 2=Patient will verbalize/demonstrate understanding of assistive devices/ modifications for ADL. 3=Patient will improve strength/tolerance for activity to enable patient to perform ADL's. OT Education/Plan Problem List/Assessment Pt to benefit from skilled OT intervention for ADL training, transfers, ROM/ strengthening, and safety education to maximize level of independence and allow safe discharge. Discharge Recommendations Plan/Recommendations: Continue POC Treatment Plan/Plan of Care Patient would benefit from OT for education, treatment and training to promote independence in ADL's, mobility, safety and/or upper extremity function for ADL' s. Plan of Care: ADL Retraining, Functional Mobility, Group Exercise/Act as Ind, Orthotic Fitting/Training, UE Funct Exercise/Act, UE Neuromus Re-Ed/Coord Treatment Duration: Aug 05, 2016 Visits Per Week: 10-11 Minutes/Day (M-F): 60-90 Minutes/Day (Sat/Bryant): PRN Agreement: Yes Rehab Potential: Fair Time/GCodes Start Time: 11:30 Stop Time: 12:00 Total Time Billed (hr/min): 30 Billed Treatment Time 1 visit-FA 1 (20 min) EX 1 (10 min) TULIO BERGMAN Jul 30, 2016 15:11
[2016-07-30] MEDS: warFARin 5 MG (COUMADIN) TAB PO SCH (17:32)
[2016-07-30 17:49] VITALS: BP 124/78
[2016-07-30] MEDS: ALFUZOSIN HCL 10 MG TAB (UROXATRAL) PO SCH (18:22)
[2016-07-30] MEDS: MELATONIN 3 MG TABLET PO SCH (21:00)
[2016-07-30] MEDS: ALPRAZolam 0.5 MG (XANAX) TAB PO SCH (21:05)
[2016-07-30] MEDS: ATORVASTATIN 40 MG (LIPITOR) TABLET PO SCH (21:05)
[2016-07-31 05:54] VITALS: BP 105/67
[2016-07-31 06:20] LABS: INR 2.7 (0.8-1.4); PROTHROMBIN TIME PATIENT 28.3 SEC (12.2-14.7)
[2016-07-31 06:42] LABS: CALCIUM 9.3 MG/DL (8.5-10.1); CREATININE SERUM 1.52 MG/DL (0.60-1.30); POTASSIUM 4.1 MMOL/L (3.6-5.0)
[2016-07-31] MEDS: FERROUS SULF 325 MG (IRON) TAB PO SCH (07:00)
--- NOTE | 2016-07-31 07:55 | Progress Note (SOAP) ---
Subjective Subjective/Events-last exam patient feeling good. Patient has a loose black stools due to the iron and Colace. GFR little lower today Objective Exam Vital Signs Date Time Temp Pulse Resp B/P Pulse Ox O2 Delivery O2 Flow Rate FiO2 07/31/16 05:54 98.1 77 18 105/67 96 Room Air 07/30/16 21:00 Room Air 07/30/16 17:49 97.9 76 16 124/78 98 07/30/16 09:00 Room Air I & O 07/31/16 07:00 Intake Total 890 ml Output Total 750 ml Balance 140 ml Capillary Refill : General Appearance: No Apparent Distress Thin HEENT: Normal ENT Inspection Neck: Non Tender Respiratory: Chest Non Tender Lungs Clear Normal Breath Sounds No Accessory Muscle Use Cardiovascular: Regular Rate, Rhythm Gastrointestinal: non tender soft Results Lab Laboratory Tests 07/31/16 05:50: Anion Gap 11, BUN/Creatinine Ratio 16, Blood Urea Nitrogen 24H, Calcium Level 9.3, Carbon Dioxide Level 22, Chloride Level 106, Creatinine 1.52H, Estimat Glomerular Filtration Rate 47, Glucose Level 99, INR Comment 2.7H, Potassium Level 4.1, Prothrombin Time 28.3H, Sodium Level 139 Assessment/Plan Assessment/Plan Assess & Plan/Chief Complaint . . weakness. Previous stroke. Sepsis. UTI. Hyponatremia. History of LV thrombus. Acute kidney injury. . 07/17/16 weakness. Sepsis history. Hyponatremia. CVA on left. Patient feeling better todayarea . 06/2616. Weakness. Confusion this morning. Trouble swallowing this morning blood tests CAT scan negative. To give some IV fluids. . 07/19/16. Weakness less. Confusion better. CAT scan of the head negative. Previous stroke. Sepsis. UTI. Hyponatremia. . 07/22/16. Weakness less. More alert. No confusion. Previous stroke on left side. Left knee bothering him.. . Weakness. Previous stroke. Sepsis. Hyponatremia. Patient doing much better.. . 07/24/16. Patient states he is doing better. Patient positive area Patient has weakness of previous stroke. Tablet feelings about this patient's. . 07/25/16. Weakness. Previous CVA. Sepsis. UTI. Hyponatremia. Patient is stronger and improving and feeling positive about himself. . 07/26/16. Weakness. Previous CVA. Sepsis. UTI. Hyponatremia. Patient had a good workup with physical therapy and occupational therapy yesterday.. Patient feels he is getting stronger. . 07/29/16. Weakness is improving. Previous stroke. Sepsis history. UTI. Hyponatremia history patient had trouble getting out of bed and getting exercises with this. Patient has headache this morning. . 07/30/16. Weakness. Previous stroke. Sepsis. UTI. Hyponatremia resolved. Patient doing better and improving. . 07/31/16 . . Debility. Previous stroke. UTI. Hyponatremia. Patient having tarry loose stools Diagnosis/Problems: Clinical Quality Measures DVT/VTE Risk/Contraindication: Risk Factor Score Per Nursin RFS Level Per Nursing on Admit: 4+=Very High VAIBHAV ZAIDI DO Jul 31, 2016 07:55
--- NOTE | 2016-07-31 08:46 | Physical Therapy Daily Note ---
PT Daily Note-Current Subjective Patient in wheelchair waiting for PT. Pleasant and cooperative, no complaints of pain other than some recent soreness in his left ankle. Appearance Patient in wheelchair post tx, he is mod I with wheelchair mobility. Mental Status Patient Orientation: Normal For Age Transfers Functional [place] Measure 0=Not Assessed/NA 4=Minimal Assistance 1=Total Assistance 5=Supervision or Setup 2=Maximal Assistance 6=Modified [place] 3=Moderate Assistance 7=Complete IndependenceIRFPAI Quality Coding Scale 6 Independent with activity with or without an assistive device 5 Patient requires set up or clean up by helper. Patient completes activity by themselves 4 Supervision or touching assist (CGA). [place] provide cues , steadying assist 3 The helper provides less than half the effort to complete the activity 2 The helper provides more than half the effort to complete the activity 1 Dependent. The helper does all the effort to complete an activity 7 Patient refused to complete or attempt activity 9 The patient did not perform the activity before the current illness or injury 88 Not attempted due to Medical conditions or safety concerns Transfers (B, C, W/C) (FIM): 4 Sit to/from Stand: 4 Bed to/from Chair: 4 sit to stand and stand pivot CGA. Slow but careful, appropriate hand placement. Gait Training Gait (FIM): 4 Distance: 150' Gait Level of Assist: 4 Gait Persons Needed: 1 Gait Assistive Device: FWW CGA/Aminah, left AFO, patient was pretty tired today and had a harder time advancing his left leg Stair Training Stair Training: Handrails/: 1 handrail Stairs (FIM): 2 #of Steps: 4 Stairs: Pattern: Step to Level of Assist: 4 cues for foot placement Exercises sideways walking in parallel bars 8'x4 NuStep Minutes: 15 NuStep Workload: 5 Treatments transfers, ambulation, functional strengthening Assessment Current Status: Fair Progress continued improvements in mobility PT Short Term Goals Short Term Goals Time Frame: Jul 22, 2016 Gait (FIM): 2 Gait Distance Comment: 70' Gait Level of Assist: 5 Gait Assistive Device: Cane Large Base Quad Wheelchair Distance: 150' PT [place] Manager Goals [place] Manager Goals PT [place] Manager Goals Time Frame: Aug 05, 2016 Transfers (B,C,W/C) (FIM): 6 Sit to Lying (QC): 6 Lying-Sitting on Side/Bed(QC): 6 Sit to Stand (QC): 6 Rollin Roll Left to Right (QC): 6 Chair/[place]-Mdugf Xfer(QC): 6 Car Transfer (QC): 4 Gait (FIM): 6 Distance: 150' Walk 10 feet (QC): 6 Walk 10ft-Uneven Surface(QC): 6 Walk 50ft with 2 Turns (QC): 6 Walk 150 ft (QC): 6 Gait Assistive Device: Cane Large Base Quad Stairs (FIM): 2 # of Steps: 4 1 Step (curb) (QC): 4 4 Steps (QC): 4 12 Steps (QC): 88 Stairs Level Of Assist: 5 Picking up an Object (QC): 5 PT Plan Problem List Problem List: Activity Tolerance, Functional Strength, Safety, Balance, Gait, Transfer, Bed Mobility, ROM Treatment/Plan Treatment Plan: Continue Plan of Care Treatment Plan: Bed Mobility, Education, Functional Activity Madalyn, Functional Strength, Group Therapy, Gait, Safety, Therapeutic Exercise, Transfers Treatment Duration: Aug 05, 2016 Visits Per Week: 10-11 Minutes/Day (M-F): 60-90 Minutes/Day (Sat/Bryant): 15-30 Safety Risks/Education Patient Education: Gait Training, Transfer Techniques, Steps, Safety Issues Teaching Recipient: Patient Teaching Methods: Demonstration, Discussion Response to Teaching: Reinforcement Needed Time/GCodes Time In: 800 Time Out: 845 Total Billed Treatment Time: 45 Total Billed Treatment 1 visit GT 15 min EX 30 min ADONAY MULLEN PT Jul 31, 2016 08:46
[2016-07-31 09:15] VITALS: BP 118/71
[2016-07-31] MEDS: LORATADINE (CLARITIN) 10 MG TAB PO SCH (09:22)
[2016-07-31] MEDS: FAMOTIDINE 20 MG (PEPCID) TABLET PO SCH ×2 (09:23→21:51)
[2016-07-31] MEDS: MAGNESIUM OXIDE (MAG-OX)400 MG TAB PO SCH (09:23)
[2016-07-31] MEDS: SACUBITRIL/VALSARTAN 24/26 MG (ENTRESTO) TABLET PO SCH ×2 (09:23→21:51)
[2016-07-31] MEDS: CARVEDILOL 6.25 MG (COREG) TAB PO SCH ×2 (09:23→21:51)
[2016-07-31] MEDS: CLOPIDOGREL 75 MG (PLAVIX) TABLET PO SCH (09:23)
[2016-07-31] MEDS: LACTOBACILLUS Acidoph/Bulgar (LACTINEX/FLORANEX) TAB PO SCH ×2 (09:23→21:51)
[2016-07-31] MEDS: OMEGA 3 (FISH OIL) 1000 MG CAP PO SCH (09:23)
[2016-07-31] MEDS: GABAPENTIN 300 MG (NEURONTIN) CAP PO SCH ×3 (09:23→21:51)
--- NOTE | 2016-07-31 09:25 | Occupational Ther Daily Note ---
OT Current Status-Daily Note Subjective Pt alert, lying in bed. Breakfast delivered as therapy began. Pt agreed to therapy. No c/o pain at this time. Mental Status/Objective Patient Orientation: Person, Place, Time, Situation Functional [place] Measure 0=Not Assessed/NA 4=Minimal Assistance 1=Total Assistance 5=Supervision or Setup 2=Maximal Assistance 6=Modified [place] 3=Moderate Assistance 7=Complete [place] ADL-Treatment Pt was able to go from supine to sitting EOB with HOB raised slightly using bed rails. Pt transferred from sitting EOB to w/c with CGA. Pt then was able to maneuver w/c to [employer] to eat breakfast. After set up, pt is able to use regular utensils to feed self and cut food. Pt requested to go to bathroom after breakfast. CGA to transfer to toilet and pull pants over hips. Pt was able to cleanse self sitting on BSC. Assist to hike pants over hips while pt steadied self with grabbars. Pt then washed hands by self sitting in w/c and shaved with electric razor. After therapy, pt sitting in w/c with call light/ phone in reach. Nrsg in room with pt. All needs met. Functional [place] Measure 0=Not Assessed/NA 4=Minimal Assistance 1=Total Assistance 5=Supervision or Setup 2=Maximal Assistance 6=Modified [place] 3=Moderate Assistance 7=Complete IndependenceIRFPAI Quality Coding Scale 6 Independent with activity with or without an assistive device 5 Patient requires set up or clean up by helper. Patient completes activity by themselves 4 Supervision or touching assist (CGA). [place] provide cues , steadying assist 3 The helper provides less than half the effort to complete the activity 2 The helper provides more than half the effort to complete the activity 1 Dependent. The helper does all the effort to complete an activity 7 Patient refused to complete or attempt activity 9 The patient did not perform the activity before the current illness or injury 88 Not attempted due to Medical conditions or safety concerns Eating (FIM): 5 Grooming (FIM): 5 Toileting (FIM): 4 Transfers (B, C, W/C) (FIM): 4 Toilet/Commode Transfer (FIM): 4 OT Short Term Goals Short Term Goals Time Frame: Jul 22, 2016 Bathing(FIM): 4 Upper Body Dressing(FIM): 4 Lower Body Dressing(FIM): 3 Toileting(FIM): 4 Toilet/Commode Transfer(FIM): 4 Shower Transfer(FIM): 4 (CGA) Additional Short Term Goals: 1-Demonstrate ADL Tasks, 2-Verbalize Understanding , 3-ImproveStrength/Madalyn 1=Demonstrate adherence to instructed precautions during ADL tasks. 2=Patient will verbalize/demonstrate understanding of assistive devices/ modifications for ADL. 3=Patient will improve strength/tolerance for activity to enable patient to perform ADL's. OT Supervisory Geographer Goals Supervisory Geographer Goals Time Frame: Aug 05, 2016 Eating (FIM): 6 Eating (QC): 6 Oral Hygiene (QC): 6 Grooming(FIM): 5 Bathing(FIM): 4 Shower/Bathe Self (QC): 4 Upper Body Dressing(FIM): 6 Upper Body Dressing (QC): 6 Lower Body Dressing(FIM): 5 Lower Body Dressing (QC): 5 On/Off Footwear (QC): 4 Toileting Hygiene (QC): 5 Toilet/Commode Transfer(FIM): 5 Toilet/Commode Transfer (QC): 5 Shower Transfer(FIM): 5 Comprehension(FIM): 6 Expression (FIM): 5 Social Interaction(FIM): 5 Problem Solving(FIM): 5 Memory(FIM): 5 Additional Goals: 1-Demonstrate ADL Tasks, 2-Verbalize Understanding, 3- ImproveStrength/Madalyn 1=Demonstrate adherence to instructed precautions during ADL tasks. 2=Patient will verbalize/demonstrate understanding of assistive devices/ modifications for ADL. 3=Patient will improve strength/tolerance for activity to enable patient to perform ADL's. OT Education/Plan Problem List/Assessment Pt to benefit from skilled OT intervention for ADL training, transfers, ROM/ strengthening, and safety education to maximize level of independence and allow safe discharge. Discharge Recommendations Plan/Recommendations: Continue POC Treatment Plan/Plan of Care Patient would benefit from OT for education, treatment and training to promote independence in ADL's, mobility, safety and/or upper extremity function for ADL' s. Plan of Care: ADL Retraining, Functional Mobility, Group Exercise/Act as Ind, Orthotic Fitting/Training, UE Funct Exercise/Act, UE Neuromus Re-Ed/Coord Treatment Duration: Aug 05, 2016 Visits Per Week: 10-11 Minutes/Day (M-F): 60-90 Minutes/Day (Sat/Bryant): PRN Agreement: Yes Rehab Potential: Fair Time/GCodes Start Time: 07:00 Stop Time: 08:00 Total Time Billed (hr/min): 60 Billed Treatment Time 1 visit-FA 4 (60 min) TULIO BERGMAN Jul 31, 2016 09:25
[2016-07-31] MEDS: FLUTICASONE NASAL SPRAY (FLONASE) 16 GM BTL NS SCH (09:28)
[2016-07-31] MEDS: DICLOFENAC 1% GEL 100 GM (VOLTAREN) TUBE TOP SCH ×4 (09:29→21:51)
[2016-07-31] MEDS: POLYETHYLENE GLYCOL 17 GM (MIRALAX) PACK PO SCH ×2 (09:44→10:04)
--- NOTE | 2016-07-31 10:04 | Speech Therapy Daily Note ---
Speech Daily Progress Note Subjective The patient was seated upright in bed upon entrance. The patient greeted the clinician appropriately and agreed to participate in the dysphagia therapy session on this date. Objective Dysphagia Exercises: The patient continues to demonstrate high accuracy on this date, displaying 85% with laryngeal, base of tongue, and pharyngeal strengthening exercises. Mild clinician verbal prompting was provided throughout the session. Assessment Assessment Current Status: Good Progress Treatment Plan Continue Plan of Care Communication Comprehension: 6 Expression: 5 Social Cognition Social Interaction: 6 Problem Solvin Memory: 5 Speech Short Term Goals Short Term Goals Short Term Goals 1. The patient will demonstrate oral motor exercises with 90% accuracy, independently. 2. The patient will demonstrate 90% intelligible with functional phrases, independently. 3. The patient will demonstrate dysphagia exercises with 90% accuracy, independently. Time Frame-STG: Two Weeks Speech Shuttle Bus Driver Goals [facility]iary Goals 1. The patient will demonstrate improved expressive communication for increased safety and function with ADL's. 2. The patient will tolerate the least restrictive diet without signs/symptoms of aspiration or laryngeal penetration. Progressing. (07/19/16) Time Frame: Four Weeks Comprehension: 6 Expression: 5 Social Interaction: 5 Problem Solvin Memory: 5 Speech-Plan Treatment Plan Speech Therapy Treatment Plan: Continue Plan of Care Continue skilled dysphagia therapy for laryngeal, pharyngeal, and base of tongue strengthening. Treatment Duration: Aug 12, 2016 # of days/week Four to five Visits Per Week: Four to Five Minutes/Day (M-F): 30-45 Rehab Potential: Fair Safety Risks/Education Teaching Recipient: Patient Teaching Methods: Demonstration, Handout, Discussion Response to Teaching: Verbalize Understanding, Return Demonstration, Reinforcement Needed Education Topics Provided: Dysphagia Exercises Time Speech Therapy Time In: 09:30 Speech Therapy Time Out: 10:00 Total Billed Time: 30 Billed Treatment Time 1 JANY MARI CALLOWAY Jul 31, 2016 10:04
--- NOTE | 2016-07-31 14:46 | Therapy Group Daily Note ---
Therapy Daily Group Note Patient Education Topic Home Safety Exercises LE Seated Exercise, UE Exercise Other/Notes Each patient had group therapy in the common area of rehab. Each patient was transported by wheelchair or ambulation as they were able and seated in a [place]. Each patient introduced themselves, stated where they were from and had to recall a specific memory from their past. Then, they all performed an activity that involved social interaction, memory, critical thinking, and problem solving. Next, the therapists provided education on home safety devices. Intermittently during group therapy the patients participated in seated exercises involving both upper and lower extremities. When it was done, each patient was transported back to their room by wheelchair or ambulation as they were able, call lights within reach and alarms on if applicable. Start Time: 13:00 Stop Time: 14:15 Total Billed Treatment Time: 75 Total Billed Treatment 1 visit GRP 75 min ADONAY MULLEN PT Jul 31, 2016 14:46
[2016-07-31] MEDS: warFARin 5 MG (COUMADIN) TAB PO SCH (17:51)
[2016-07-31] MEDS: ALFUZOSIN HCL 10 MG TAB (UROXATRAL) PO SCH (17:51)
[2016-07-31 18:38] VITALS: BP 120/62
[2016-07-31] MEDS: MELATONIN 3 MG TABLET PO SCH ×2 (21:00→21:51)
[2016-07-31] MEDS: ALPRAZolam 0.5 MG (XANAX) TAB PO SCH (21:51)
[2016-07-31] MEDS: ATORVASTATIN 40 MG (LIPITOR) TABLET PO SCH (21:51)
[2016-08-01 04:30] VITALS: BP 95/59
[2016-08-01 05:36] LABS: MEAN PLATELET VOLUME 11.1 FL (7.4-10.4); RED BLOOD COUNT 4.13 10^6/uL (4.35-5.85); RED CELL DISTRIBUTION WIDTH 17.9 % (10.0-14.5); WHITE BLOOD COUNT 2.5 10^3/uL (4.3-11.0)
[2016-08-01 05:48] LABS: INR 2.2 (0.8-1.4); PROTHROMBIN TIME PATIENT 24.2 SEC (12.2-14.7)
[2016-08-01 05:56] LABS: CREATININE SERUM 1.35 MG/DL (0.60-1.30); POTASSIUM 3.9 MMOL/L (3.6-5.0)
[2016-08-01 05:57] LABS: CALCIUM 9.3 MG/DL (8.5-10.1)
[2016-08-01] MEDS: ACETAMINOPHEN 500 MG TAB (TYLENOL) PO PRN ×2 (06:58→20:30)
--- NOTE | 2016-08-01 08:10 | Progress Note (SOAP) ---
Subjective Subjective/Events-last exam patient having muscle spasm on weeks side. Patient states she's getting stronger. Platelet count 91 White, blood cell 2.5 to monitor Objective Exam Vital Signs Date Time Temp Pulse Resp B/P Pulse Ox O2 Delivery O2 Flow Rate FiO2 08/01/16 04:30 96.8 69 22 95/59 98 Room Air 07/31/16 21:00 Room Air 07/31/16 18:38 96.9 72 16 120/62 99 Room Air 07/31/16 09:15 78 20 118/71 97 Room Air 07/31/16 08:23 Room Air I & O 08/01/16 07:00 Intake Total 1825 ml Output Total 1400 ml Balance 425 ml Capillary Refill : General Appearance: No Apparent Distress Thin HEENT: Normal ENT Inspection Neck: Normal Inspection Respiratory: Chest Non Tender Lungs Clear Normal Breath Sounds No Accessory Muscle Use No Respiratory Distress Cardiovascular: Regular Rate, Rhythm No Murmur Gastrointestinal: non tender soft Results Lab Laboratory Tests 08/01/16 04:42 Laboratory Tests 08/01/16 04:42: Anion Gap 11, BUN/Creatinine Ratio 16, Blood Urea Nitrogen 21H, Calcium Level 9.3, Carbon Dioxide Level 22, Chloride Level 106, Creatinine 1.35H, Estimat Glomerular Filtration Rate 54, Glucose Level 109H, Hematocrit 33L, Hemoglobin 10.9L, INR Comment 2.2H, Mean Corpuscular Hemoglobin 26, Mean Corpuscular Hemoglobin Concent 33, Mean Corpuscular Volume 81, Mean Platelet Volume 11.1H, Platelet Count 91L, Potassium Level 3.9, Prothrombin Time 24.2H, Red Blood Count 4.13L, Red Cell Distribution Width 17.9H, Sodium Level 139, White Blood Count 2.5L Assessment/Plan Assessment/Plan Assess & Plan/Chief Complaint . . weakness. Previous stroke. Sepsis. UTI. Hyponatremia. History of LV thrombus. Acute kidney injury. . 07/17/16 weakness. Sepsis history. Hyponatremia. CVA on left. Patient feeling better todayarea . 06/2616. Weakness. Confusion this morning. Trouble swallowing this morning blood tests CAT scan negative. To give some IV fluids. . 07/19/16. Weakness less. Confusion better. CAT scan of the head negative. Previous stroke. Sepsis. UTI. Hyponatremia. . 07/22/16. Weakness less. More alert. No confusion. Previous stroke on left side. Left knee bothering him.. . Weakness. Previous stroke. Sepsis. Hyponatremia. Patient doing much better.. . 07/24/16. Patient states he is doing better. Patient positive area Patient has weakness of previous stroke. Tablet feelings about this patient's. . 07/25/16. Weakness. Previous CVA. Sepsis. UTI. Hyponatremia. Patient is stronger and improving and feeling positive about himself. . 07/26/16. Weakness. Previous CVA. Sepsis. UTI. Hyponatremia. Patient had a good workup with physical therapy and occupational therapy yesterday.. Patient feels he is getting stronger. . 07/29/16. Weakness is improving. Previous stroke. Sepsis history. UTI. Hyponatremia history patient had trouble getting out of bed and getting exercises with this. Patient has headache this morning. . 07/30/16. Weakness. Previous stroke. Sepsis. UTI. Hyponatremia resolved. Patient doing better and improving. . 07/31/16 . . Debility. Previous stroke. UTI. Hyponatremia. Patient having tarry loose stools. . 08/01/16. Leukopenia. Thrombocytopenia. Patient having muscle spasms in weak side. Weakness. Previous stroke. Sepsis. UTI. Hyponatremia Diagnosis/Problems: Clinical Quality Measures DVT/VTE Risk/Contraindication: Risk Factor Score Per Nursin RFS Level Per Nursing on Admit: 4+=Very High VAIBHAV ZAIDI DO Aug 01, 2016 08:10
--- NOTE | 2016-08-01 08:12 | Occupational Ther Daily Note ---
OT Current Status-Daily Note Subjective Pt alert, lying in bed. Pt c/o pain throughout L side due to muscle spasms. OT worked on decreasing muscle pain prior to getting out of bed. Pt agreed to therapy. Mental Status/Objective Patient Orientation: Person, Place, Time, Situation Functional [place] Measure 0=Not Assessed/NA 4=Minimal Assistance 1=Total Assistance 5=Supervision or Setup 2=Maximal Assistance 6=Modified [place] 3=Moderate Assistance 7=Complete [place] ADL-Treatment Pt went from supine to sitting EOB with HOB elevated and using bed rails. Pt transferred with CGA to w/c. CGA to transfer to tub seat with back. CGA when standing while pt bathed buttocks. Pt completed all other bathing in sitting by self. Pt required assistance to dry R UE, dried rest by self. Pt completed grooming sitting at sink by self. Set up required for breakfast then used regular utensil to eat. After therapy, pt sitting in w/c eating breakfast. Call light/phone within reach. All needs met in room. Functional [place] Measure 0=Not Assessed/NA 4=Minimal Assistance 1=Total Assistance 5=Supervision or Setup 2=Maximal Assistance 6=Modified [place] 3=Moderate Assistance 7=Complete IndependenceIRFPAI Quality Coding Scale 6 Independent with activity with or without an assistive device 5 Patient requires set up or clean up by helper. Patient completes activity by themselves 4 Supervision or touching assist (CGA). [place] provide cues , steadying assist 3 The helper provides less than half the effort to complete the activity 2 The helper provides more than half the effort to complete the activity 1 Dependent. The helper does all the effort to complete an activity 7 Patient refused to complete or attempt activity 9 The patient did not perform the activity before the current illness or injury 88 Not attempted due to Medical conditions or safety concerns OT Short Term Goals Short Term Goals Time Frame: Jul 22, 2016 Bathing(FIM): 4 Upper Body Dressing(FIM): 4 Lower Body Dressing(FIM): 3 Toileting(FIM): 4 Toilet/Commode Transfer(FIM): 4 Shower Transfer(FIM): 4 (CGA) Additional Short Term Goals: 1-Demonstrate ADL Tasks, 2-Verbalize Understanding , 3-ImproveStrength/Madalyn 1=Demonstrate adherence to instructed precautions during ADL tasks. 2=Patient will verbalize/demonstrate understanding of assistive devices/ modifications for ADL. 3=Patient will improve strength/tolerance for activity to enable patient to perform ADL's. OT Detention Goals Detention Goals Time Frame: Aug 05, 2016 Eating (FIM): 6 Eating (QC): 6 Oral Hygiene (QC): 6 Grooming(FIM): 5 Bathing(FIM): 4 Shower/Bathe Self (QC): 4 Upper Body Dressing(FIM): 6 Upper Body Dressing (QC): 6 Lower Body Dressing(FIM): 5 Lower Body Dressing (QC): 5 On/Off Footwear (QC): 4 Toileting Hygiene (QC): 5 Toilet/Commode Transfer(FIM): 5 Toilet/Commode Transfer (QC): 5 Shower Transfer(FIM): 5 Comprehension(FIM): 6 Expression (FIM): 5 Social Interaction(FIM): 5 Problem Solving(FIM): 5 Memory(FIM): 5 Additional Goals: 1-Demonstrate ADL Tasks, 2-Verbalize Understanding, 3- ImproveStrength/Madalyn 1=Demonstrate adherence to instructed precautions during ADL tasks. 2=Patient will verbalize/demonstrate understanding of assistive devices/ modifications for ADL. 3=Patient will improve strength/tolerance for activity to enable patient to perform ADL's. OT Education/Plan Problem List/Assessment Pt to benefit from skilled OT intervention for ADL training, transfers, ROM/ strengthening, and safety education to maximize level of independence and allow safe discharge. Discharge Recommendations Plan/Recommendations: Continue POC Treatment Plan/Plan of Care Patient would benefit from OT for education, treatment and training to promote independence in ADL's, mobility, safety and/or upper extremity function for ADL' s. Plan of Care: ADL Retraining, Functional Mobility, Group Exercise/Act as Ind, Orthotic Fitting/Training, UE Funct Exercise/Act, UE Neuromus Re-Ed/Coord Treatment Duration: Aug 05, 2016 Visits Per Week: 10-11 Minutes/Day (M-F): 60-90 Minutes/Day (Sat/Bryant): PRN Agreement: Yes Rehab Potential: Fair Time/GCodes Start Time: 07:00 Stop Time: 08:00 Total Time Billed (hr/min): 60 Billed Treatment Time 1 visit-ADL 4 (60 min) TULIO BERGMAN Aug 01, 2016 08:11
[2016-08-01 08:25] VITALS: BP 112/72
[2016-08-01] MEDS: SACUBITRIL/VALSARTAN 24/26 MG (ENTRESTO) TABLET PO SCH ×2 (08:31→20:30)
[2016-08-01] MEDS: OMEGA 3 (FISH OIL) 1000 MG CAP PO SCH (08:31)
[2016-08-01] MEDS: GABAPENTIN 300 MG (NEURONTIN) CAP PO SCH ×3 (08:31→20:30)
[2016-08-01] MEDS: LORATADINE (CLARITIN) 10 MG TAB PO SCH (08:31)
[2016-08-01] MEDS: CLOPIDOGREL 75 MG (PLAVIX) TABLET PO SCH (08:31)
[2016-08-01] MEDS: POLYETHYLENE GLYCOL 17 GM (MIRALAX) PACK PO SCH (08:32)
[2016-08-01] MEDS: FAMOTIDINE 20 MG (PEPCID) TABLET PO SCH ×2 (08:32→20:30)
[2016-08-01] MEDS: CARVEDILOL 6.25 MG (COREG) TAB PO SCH ×2 (08:32→20:30)
[2016-08-01] MEDS: LACTOBACILLUS Acidoph/Bulgar (LACTINEX/FLORANEX) TAB PO SCH ×2 (08:32→20:30)
[2016-08-01] MEDS: MAGNESIUM OXIDE (MAG-OX)400 MG TAB PO SCH (08:32)
--- NOTE | 2016-08-01 08:45 | Physical Therapy Daily Note ---
PT Daily Note-Current Subjective Patient in wheelchair pre tx, finishing up breakfast, agrees to PT, needs some dressing with shoes and AFO and jacket. No complaints of pain. Appearance Patient in wheelchair post tx, is mod I with wheelchair mobility. Mental Status Patient Orientation: Normal For Age Transfers Functional [place] Measure 0=Not Assessed/NA 4=Minimal Assistance 1=Total Assistance 5=Supervision or Setup 2=Maximal Assistance 6=Modified [place] 3=Moderate Assistance 7=Complete IndependenceIRFPAI Quality Coding Scale 6 Independent with activity with or without an assistive device 5 Patient requires set up or clean up by helper. Patient completes activity by themselves 4 Supervision or touching assist (CGA). [place] provide cues , steadying assist 3 The helper provides less than half the effort to complete the activity 2 The helper provides more than half the effort to complete the activity 1 Dependent. The helper does all the effort to complete an activity 7 Patient refused to complete or attempt activity 9 The patient did not perform the activity before the current illness or injury 88 Not attempted due to Medical conditions or safety concerns Transfers (B, C, W/C) (FIM): 4 Scootin Rollin Supine to/from Sit: 4 Sit to/from Stand: 4 Bed to/from Chair: 4 bed mobility is SBA but still needs occasional help getting his left leg into bed, transfers are CGA Gait Training Gait (FIM): 4 Distance: 150' Gait Level of Assist: 4 (CGA) Gait Persons Needed: 1 Gait Assistive Device: Cane Large Base Quad better endurance, no LOB, left AFO, better left leg advancement Stair Training Stair Training: Handrails/: 1 handrail Stairs (FIM): 2 #of Steps: 4 Stairs: Pattern: Step to Level of Assist: 4 (CGA) did not need cues for foot placement this time Treatments transfers, practiced bed mobility to both sides several times, ambulation, dressing Assessment Current Status: Fair Progress improving bed mobility PT Short Term Goals Short Term Goals Time Frame: Jul 22, 2016 Gait (FIM): 2 Gait Distance Comment: 70' Gait Level of Assist: 5 Gait Assistive Device: Cane Large Base Quad Wheelchair Distance: 150' PT Care Home Goals Care Home Goals PT Care Home Goals Time Frame: Aug 05, 2016 Transfers (B,C,W/C) (FIM): 6 Sit to Lying (QC): 6 Lying-Sitting on Side/Bed(QC): 6 Sit to Stand (QC): 6 Rollin Roll Left to Right (QC): 6 Chair/[id number] Xfer(QC): 6 Car Transfer (QC): 4 Gait (FIM): 6 Distance: 150' Walk 10 feet (QC): 6 Walk 10ft-Uneven Surface(QC): 6 Walk 50ft with 2 Turns (QC): 6 Walk 150 ft (QC): 6 Gait Assistive Device: Cane Large Base Quad Stairs (FIM): 2 # of Steps: 4 1 Step (curb) (QC): 4 4 Steps (QC): 4 12 Steps (QC): 88 Stairs Level Of Assist: 5 Picking up an Object (QC): 5 PT Plan Problem List Problem List: Activity Tolerance, Functional Strength, Safety, Balance, Gait, Transfer, Bed Mobility, ROM Treatment/Plan Treatment Plan: Continue Plan of Care Treatment Plan: Bed Mobility, Education, Functional Activity Madalyn, Functional Strength, Group Therapy, Gait, Safety, Therapeutic Exercise, Transfers Treatment Duration: Aug 05, 2016 Visits Per Week: 10-11 Minutes/Day (M-F): 60-90 Minutes/Day (Sat/Bryant): 15-30 Safety Risks/Education Patient Education: Gait Training, Transfer Techniques, Steps, Correct Positioning, Safety Issues Teaching Recipient: Patient Teaching Methods: Demonstration, Discussion Response to Teaching: Reinforcement Needed Time/GCodes Time In: 800 Time Out: 845 Total Billed Treatment Time: 45 Total Billed Treatment 1 visit GT 15 min FA 30 min ADONAY MULLEN PT Aug 01, 2016 08:45
[2016-08-01] MEDS: FLUTICASONE NASAL SPRAY (FLONASE) 16 GM BTL NS SCH (08:52)
[2016-08-01] MEDS: DICLOFENAC 1% GEL 100 GM (VOLTAREN) TUBE TOP SCH ×4 (08:53→19:48)
--- NOTE | 2016-08-01 10:39 | Speech Therapy Daily Note ---
Speech Daily Progress Note Subjective The patient was seated upright in wheelchair upon entrance. The patient greeted the clinician appropriately and agreed to participate in the dysphagia treatment session. Per patient, he is feeling better (more alert) than the previous sessions. Objective Dysphagia Exercises: The patient continues to demonstrate high accuracy on this date, displaying 90% with laryngeal, base of tongue, and pharyngeal strengthening exercises. Mild clinician verbal prompting was provided throughout the session. The Shaker exercise was deferred as the patient was sitting upright for session. Assessment Assessment Current Status: Good Progress Treatment Plan Continue Plan of Care Communication Comprehension: 6 Expression: 5 Social Cognition Social Interaction: 6 Problem Solvin Memory: 5 Speech Short Term Goals Short Term Goals Short Term Goals 1. The patient will demonstrate oral motor exercises with 90% accuracy, independently. 2. The patient will demonstrate 90% intelligible with functional phrases, independently. 3. The patient will demonstrate dysphagia exercises with 90% accuracy, independently. Time Frame-STG: Two Weeks Speech Insole Tack Puller Hand Goals [place] Goals 1. The patient will demonstrate improved expressive communication for increased safety and function with ADL's. 2. The patient will tolerate the least restrictive diet without signs/symptoms of aspiration or laryngeal penetration. Progressing. (07/19/16) Time Frame: Four Weeks Comprehension: 6 Expression: 5 Social Interaction: 5 Problem Solvin Memory: 5 Speech-Plan Treatment Plan Speech Therapy Treatment Plan: Continue Plan of Care Continued skilled dysphagia services to target increased laryngeal, pharyngeal, and base of tongue strength. Treatment Duration: Aug 12, 2016 # of days/week Four to Five Visits Per Week: Four to Five Minutes/Day (M-F): 30-45 Rehab Potential: Fair Safety Risks/Education Teaching Recipient: Patient Teaching Methods: Demonstration, Handout Response to Teaching: Return Demonstration, Reinforcement Needed Education Topics Provided: Dysphagia Exercises Time Speech Therapy Time In: 09:15 Speech Therapy Time Out: 09:45 Total Billed Time: 30 Billed Treatment Time 1, JANY MARI CALLOWAY Aug 01, 2016 10:39
--- NOTE | 2016-08-01 12:47 | PM & R (SOAP) Progress Note ---
Subjective Subjective/Events-last exam Patient was seen in his room this noonhour Patient min assist for trsnsfers Patient family has arranged for patient to go to a Independent retiremnet home in [place] upon completion of rehab Objective Exam Last Set of Vital Signs Vital Signs Date Time Temp Pulse Resp B/P Pulse Ox O2 Delivery O2 Flow Rate FiO2 08/01/16 08:25 78 20 112/72 98 Room Air 08/01/16 04:30 96.8 Capillary Refill : I&O Intake and Output 08/01/16 00:00 Intake Total 1175 ml Output Total 1350 ml Balance -175 ml Intake Oral 1175 ml Output Urine Total 1350 ml # Voids 3 # Bowel Movements 3 General: Alert, Oriented X3, Cooperative, No Acute Distress HEENT: Atraumatic, PERRLA, EOMI, Mucous Memb Moist/[place] Neck: Supple, No JVD Lungs: Clear to Auscultation Heart: Regular Rate Abdomen: Normal Bowel Sounds, Soft, No Tenderness Extremities: No Edema Neuro: Other (Doing better with improved strength and speech Very alert Self propels w/c on unit) Results Lab Laboratory Tests 07/30/16 04:54: INR Comment 2.9H, Prothrombin Time 30.3H 07/31/16 05:50: INR Comment 2.7H, Prothrombin Time 28.3H, Anion Gap 11, BUN/Creatinine Ratio 16 , Blood Urea Nitrogen 24H, Calcium Level 9.3, Carbon Dioxide Level 22, Chloride Level 106, Creatinine 1.52H, Estimat Glomerular Filtration Rate 47, Glucose Level 99, Potassium Level 4.1, Sodium Level 139 08/01/16 04:42: INR Comment 2.2H, Prothrombin Time 24.2H, Anion Gap 11, BUN/Creatinine Ratio 16 , Blood Urea Nitrogen 21H, Calcium Level 9.3, Carbon Dioxide Level 22, Chloride Level 106, Creatinine 1.35H, Estimat Glomerular Filtration Rate 54, Glucose Level 109H, Potassium Level 3.9, Sodium Level 139, Hematocrit 33L, Hemoglobin 10.9L, Mean Corpuscular Hemoglobin 26, Mean Corpuscular Hemoglobin Concent 33, Mean Corpuscular Volume 81, Mean Platelet Volume 11.1H, Platelet Count 91L, Red Blood Count 4.13L, Red Cell Distribution Width 17.9H, White Blood Count 2.5L Assessment/Plan Assessment General debil secondary to UTI with sepsis treated OSH Change in mental status w/u in progress-will d/c baclofen-and now improved s/p 1 lter of IVFS and with Baclfen d/cd 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 TEam Conference held yesterday See report for full functional update and POC and ELOS Will f/u with re details of discharge back to [facility] GRAEME GRESHAM MD Aug 01, 2016 12:47
--- NOTE | 2016-08-01 13:45 | Occupational Ther Daily Note ---
OT Current Status-Daily Note Subjective Pt alert, sitting in w/c. Pt agreed to therapy. No c/o pain. Mental Status/Objective Patient Orientation: Person, Place, Time, Situation Functional [place] Measure 0=Not Assessed/NA 4=Minimal Assistance 1=Total Assistance 5=Supervision or Setup 2=Maximal Assistance 6=Modified [place] 3=Moderate Assistance 7=Complete [place] ADL-Treatment Pt able to stand at sink then balance and adjust pants with R hand with SBA. Pt maneuvered w/c to therapy gym. OT completed massage to R UE to decrease tightness and increase movement. Pt is demonstrating shldr elevation and retraction with L shldr 5-10x's before muscle fatigues. AROM with L elbow flexion/extension. L elbow is able to extended WFL then flex approximately to 95*. Pt attempts compensatory movements to move different parts of R UE, OT isolates each movement to decrease these. After therapy, pt in care of PT in therapy gym. All needs met. Functional [place] Measure 0=Not Assessed/NA 4=Minimal Assistance 1=Total Assistance 5=Supervision or Setup 2=Maximal Assistance 6=Modified [place] 3=Moderate Assistance 7=Complete IndependenceIRFPAI Quality Coding Scale 6 Independent with activity with or without an assistive device 5 Patient requires set up or clean up by helper. Patient completes activity by themselves 4 Supervision or touching assist (CGA). [place] provide cues , steadying assist 3 The helper provides less than half the effort to complete the activity 2 The helper provides more than half the effort to complete the activity 1 Dependent. The helper does all the effort to complete an activity 7 Patient refused to complete or attempt activity 9 The patient did not perform the activity before the current illness or injury 88 Not attempted due to Medical conditions or safety concerns OT Short Term Goals Short Term Goals Time Frame: Jul 22, 2016 Bathing(FIM): 4 Upper Body Dressing(FIM): 4 Lower Body Dressing(FIM): 3 Toileting(FIM): 4 Toilet/Commode Transfer(FIM): 4 Shower Transfer(FIM): 4 (CGA) Additional Short Term Goals: 1-Demonstrate ADL Tasks, 2-Verbalize Understanding , 3-ImproveStrength/Madalyn 1=Demonstrate adherence to instructed precautions during ADL tasks. 2=Patient will verbalize/demonstrate understanding of assistive devices/ modifications for ADL. 3=Patient will improve strength/tolerance for activity to enable patient to perform ADL's. OT Inclusion Special Education Teacher Goals Inclusion Special Education Teacher Goals Time Frame: Aug 05, 2016 Eating (FIM): 6 Eating (QC): 6 Groomin Oral Hygiene (QC): 6 Bathing(FIM): 4 Shower/Bathe Self (QC): 4 Upper Body Dressing(FIM): 6 Upper Body Dressing (QC): 6 Lower Body Dressing(FIM): 5 Lower Body Dressing (QC): 5 On/Off Footwear (QC): 4 Toileting Hygiene (QC): 5 Toilet/Commode Transfer(FIM): 5 Toilet/Commode Transfer (QC): 5 Shower Transfer(FIM): 5 Comprehension(FIM): 6 Expression (FIM): 5 Social Interaction(FIM): 5 Problem Solving(FIM): 5 Memory(FIM): 5 Additional Goals: 1-Demonstrate ADL Tasks, 2-Verbalize Understanding, 3- ImproveStrength/Madalyn 1=Demonstrate adherence to instructed precautions during ADL tasks. 2=Patient will verbalize/demonstrate understanding of assistive devices/ modifications for ADL. 3=Patient will improve strength/tolerance for activity to enable patient to perform ADL's. OT Education/Plan Problem List/Assessment Pt to benefit from skilled OT intervention for ADL training, transfers, ROM/ strengthening, and safety education to maximize level of independence and allow safe discharge. Discharge Recommendations Plan/Recommendations: Continue POC Treatment Plan/Plan of Care Patient would benefit from OT for education, treatment and training to promote independence in ADL's, mobility, safety and/or upper extremity function for ADL' s. Plan of Care: ADL Retraining, Functional Mobility, Group Exercise/Act as Ind, Orthotic Fitting/Training, UE Funct Exercise/Act, UE Neuromus Re-Ed/Coord Treatment Duration: Aug 05, 2016 Visits Per Week: 10-11 Minutes/Day (M-F): 60-90 Minutes/Day (Sat/Bryant): PRN Agreement: Yes Rehab Potential: Fair Time/GCodes Start Time: 13:00 Stop Time: 13:30 Total Time Billed (hr/min): 30 Billed Treatment Time 1 visit-FA 1 (15 min) EX 1 (15 min) TULIO BERGMAN Aug 01, 2016 13:45
--- NOTE | 2016-08-01 13:59 | Physical Therapy Daily Note ---
PT Daily Note-Current Subjective Patient in wheelchair in therapy gym, just got done with OT. No pain. Appearance Patient in wheelchair in his room post tx. Mental Status Patient Orientation: Normal For Age Transfers Functional [place] Measure 0=Not Assessed/NA 4=Minimal Assistance 1=Total Assistance 5=Supervision or Setup 2=Maximal Assistance 6=Modified [place] 3=Moderate Assistance 7=Complete IndependenceIRFPAI Quality Coding Scale 6 Independent with activity with or without an assistive device 5 Patient requires set up or clean up by helper. Patient completes activity by themselves 4 Supervision or touching assist (CGA). [place] provide cues , steadying assist 3 The helper provides less than half the effort to complete the activity 2 The helper provides more than half the effort to complete the activity 1 Dependent. The helper does all the effort to complete an activity 7 Patient refused to complete or attempt activity 9 The patient did not perform the activity before the current illness or injury 88 Not attempted due to Medical conditions or safety concerns Transfers (B, C, W/C) (FIM): 4 Sit to/from Stand: 4 Bed to/from Chair: 4 Gait Training Gait (FIM): 2 Distance: 100', 50' Gait Level of Assist: 4 Gait Persons Needed: 1 Gait Assistive Device: Cane Large Base Quad left AFO, CGA Exercises NuStep Minutes: 15 NuStep Workload: 5 Treatments transfers, ambulation, functional strengthening Assessment Current Status: Fair Progress PT Short Term Goals Short Term Goals Time Frame: Jul 22, 2016 Gait (FIM): 2 Gait Distance Comment: 70' Gait Level of Assist: 5 Gait Assistive Device: Cane Large Base Quad Wheelchair Distance: 150' PT Group Home Goals Group Home Goals PT Group Home Goals Time Frame: Aug 05, 2016 Transfers (B,C,W/C) (FIM): 6 Sit to Lying (QC): 6 Lying-Sitting on Side/Bed(QC): 6 Sit to Stand (QC): 6 Rollin Roll Left to Right (QC): 6 Chair/Bjr-jf-Kocri Xfer(QC): 6 Car Transfer (QC): 4 Gait (FIM): 6 Distance: 150' Walk 10 feet (QC): 6 Walk 10ft-Uneven Surface(QC): 6 Walk 50ft with 2 Turns (QC): 6 Walk 150 ft (QC): 6 Gait Assistive Device: Cane Large Base Quad Stairs (FIM): 2 # of Steps: 4 1 Step (curb) (QC): 4 4 Steps (QC): 4 12 Steps (QC): 88 Stairs Level Of Assist: 5 Picking up an Object (QC): 5 PT Plan Problem List Problem List: Activity Tolerance, Functional Strength, Safety, Balance, Gait, Transfer, Bed Mobility, ROM Treatment/Plan Treatment Plan: Continue Plan of Care Treatment Plan: Bed Mobility, Education, Functional Activity Madalyn, Functional Strength, Group Therapy, Gait, Safety, Therapeutic Exercise, Transfers Treatment Duration: Aug 05, 2016 Visits Per Week: 10-11 Minutes/Day (M-F): 60-90 Minutes/Day (Sat/Bryant): 15-30 Safety Risks/Education Patient Education: Gait Training, Transfer Techniques, Safety Issues Teaching Recipient: Patient Teaching Methods: Demonstration, Discussion Response to Teaching: Reinforcement Needed Time/GCodes Time In: 1330 Time Out: 1400 Total Billed Treatment Time: 30 Total Billed Treatment 1 visit GT 15 min EX 15 min ADONAY MULLEN PT Aug 01, 2016 13:59
[2016-08-01] MEDS: warFARin 5 MG (COUMADIN) TAB PO SCH (17:00)
[2016-08-01] MEDS: ALFUZOSIN HCL 10 MG TAB (UROXATRAL) PO SCH (17:00)
[2016-08-01 17:50] VITALS: BP 134/83
[2016-08-01] MEDS: ALPRAZolam 0.5 MG (XANAX) TAB PO SCH (20:30)
[2016-08-01] MEDS: ATORVASTATIN 40 MG (LIPITOR) TABLET PO SCH (20:30)
[2016-08-01] MEDS: MELATONIN 3 MG TABLET PO SCH (20:31)
[2016-08-02 05:01] VITALS: BP 126/74
[2016-08-02 07:07] LABS: BASOPHILS % (AUTO) 0 % (0-10); EOSINOPHILS # (AUTO) 0.2 10^3/uL (0.0-0.3); EOSINOPHILS % (AUTO) 7 % (0-10); LYMPHOCYTES # (AUTO) 0.8 X 10^3 (1.0-4.0); LYMPHOCYTES % (AUTO) 31 % (12-44); MEAN CORPUSCULAR HEMOGLOBIN 26 PG (25-34); MEAN CORPUSCULAR HGB CONC 32 G/DL (32-36); MEAN CORPUSCULAR VOLUME 81 FL (80-99); MEAN PLATELET VOLUME 11.6 FL (7.4-10.4); MONOCYTES # (AUTO) 0.3 X 10^3 (0.0-1.0); MONOCYTES % (AUTO) 14 % (0-12); NEUTROPHILS # (AUTO) 1.2 X 10^3 (1.8-7.8); NEUTROPHILS % (AUTO) 48 % (42-75); PLATELET COUNT 97 10^3/uL (130-400); RED BLOOD COUNT 4.47 10^6/uL (4.35-5.85); WHITE BLOOD COUNT 2.5 10^3/uL (4.3-11.0)
[2016-08-02 07:12] LABS: INR 2.5 (0.8-1.4); PROTHROMBIN TIME PATIENT 26.7 SEC (12.2-14.7)
--- NOTE | 2016-08-02 08:07 | Progress Note (SOAP) ---
Subjective Subjective/Events-last exam patient not having any complaints. Patient having trouble getting in and out of bed. Patient is improving. Patient has leukopenia and thrombocytopenia. Patient on Coumadin. Patient taking blood thinners from previous stroke Objective Exam Vital Signs Date Time Temp Pulse Resp B/P Pulse Ox O2 Delivery O2 Flow Rate FiO2 08/02/16 05:01 98.5 74 18 126/74 98 Room Air 08/01/16 20:45 Room Air 08/01/16 17:50 98.3 77 16 134/83 98 08/01/16 08:25 78 20 112/72 98 Room Air 08/01/16 08:14 Room Air I & O 08/02/16 07:00 Intake Total 1510 ml Output Total 2150 ml Balance -640 ml Capillary Refill : General Appearance: No Apparent Distress Thin HEENT: Normal ENT Inspection Neck: Normal Inspection Respiratory: Chest Non Tender Lungs Clear Normal Breath Sounds No Accessory Muscle Use No Respiratory Distress Cardiovascular: Regular Rate, Rhythm No Murmur Gastrointestinal: non tender soft Results Lab Laboratory Tests 08/02/16 05:15 Laboratory Tests 08/02/16 05:15: Basophils # (Auto) 0.0, Basophils (%) (Auto) 0, Eosinophils # (Auto) 0.2, Eosinophils (%) (Auto) 7, Hematocrit 36L, Hemoglobin 11.8L, INR Comment 2.5H, Lymphocytes # (Auto) 0.8L, Lymphocytes (%) (Auto) 31, Mean Corpuscular Hemoglobin 26, Mean Corpuscular Hemoglobin Concent 32, Mean Corpuscular Volume 81, Mean Platelet Volume 11.6H, Monocytes # (Auto) 0.3, Monocytes (%) (Auto) 14H , Neutrophils # (Auto) 1.2L, Neutrophils (%) (Auto) 48, Platelet Count 97L, Prothrombin Time 26.7H, Red Blood Count 4.47, Red Cell Distribution Width 18.0H , White Blood Count 2.5L Assessment/Plan Assessment/Plan Assess & Plan/Chief Complaint . . weakness. Previous stroke. Sepsis. UTI. Hyponatremia. History of LV thrombus. Acute kidney injury. . 07/17/16 weakness. Sepsis history. Hyponatremia. CVA on left. Patient feeling better todayarea . 06/2616. Weakness. Confusion this morning. Trouble swallowing this morning blood tests CAT scan negative. To give some IV fluids. . 07/19/16. Weakness less. Confusion better. CAT scan of the head negative. Previous stroke. Sepsis. UTI. Hyponatremia. . 07/22/16. Weakness less. More alert. No confusion. Previous stroke on left side. Left knee bothering him.. . Weakness. Previous stroke. Sepsis. Hyponatremia. Patient doing much better.. . 07/24/16. Patient states he is doing better. Patient positive area Patient has weakness of previous stroke. Tablet feelings about this patient's. . 07/25/16. Weakness. Previous CVA. Sepsis. UTI. Hyponatremia. Patient is stronger and improving and feeling positive about himself. . 07/26/16. Weakness. Previous CVA. Sepsis. UTI. Hyponatremia. Patient had a good workup with physical therapy and occupational therapy yesterday.. Patient feels he is getting stronger. . 07/29/16. Weakness is improving. Previous stroke. Sepsis history. UTI. Hyponatremia history patient had trouble getting out of bed and getting exercises with this. Patient has headache this morning. . 07/30/16. Weakness. Previous stroke. Sepsis. UTI. Hyponatremia resolved. Patient doing better and improving. . 07/31/16 . . Debility. Previous stroke. UTI. Hyponatremia. Patient having tarry loose stools. . 08/01/16. Leukopenia. Thrombocytopenia. Patient having muscle spasms in weak side. Weakness. Previous stroke. Sepsis. UTI. Hyponatremia. . 04/01/17 leukopenia. Thrombocytopenia. Previous stroke. Sepsis. Hyponatremia. Patient doing better with physical therapy. Platelet count went up to 97,000. White blood cell count 2500 Diagnosis/Problems: Clinical Quality Measures DVT/VTE Risk/Contraindication: Risk Factor Score Per Nursin RFS Level Per Nursing on Admit: 4+=Very High VAIBHAV ZAIDI DO Aug 02, 2016 08:07
[2016-08-02] MEDS: CLOPIDOGREL 75 MG (PLAVIX) TABLET PO SCH (08:39)
[2016-08-02] MEDS: OMEGA 3 (FISH OIL) 1000 MG CAP PO SCH (08:39)
[2016-08-02] MEDS: CARVEDILOL 6.25 MG (COREG) TAB PO SCH ×2 (08:39→20:45)
[2016-08-02] MEDS: GABAPENTIN 300 MG (NEURONTIN) CAP PO SCH ×3 (08:39→20:45)
[2016-08-02] MEDS: FAMOTIDINE 20 MG (PEPCID) TABLET PO SCH ×2 (08:39→20:45)
[2016-08-02] MEDS: LACTOBACILLUS Acidoph/Bulgar (LACTINEX/FLORANEX) TAB PO SCH ×2 (08:41→20:45)
[2016-08-02] MEDS: DICLOFENAC 1% GEL 100 GM (VOLTAREN) TUBE TOP SCH ×4 (08:42→20:46)
[2016-08-02] MEDS: SACUBITRIL/VALSARTAN 24/26 MG (ENTRESTO) TABLET PO SCH ×2 (08:42→20:45)
[2016-08-02] MEDS: LORATADINE (CLARITIN) 10 MG TAB PO SCH (08:42)
[2016-08-02] MEDS: MAGNESIUM OXIDE (MAG-OX)400 MG TAB PO SCH (08:42)
[2016-08-02] MEDS: FLUTICASONE NASAL SPRAY (FLONASE) 16 GM BTL NS SCH (08:42)
[2016-08-02] MEDS: POLYETHYLENE GLYCOL 17 GM (MIRALAX) PACK PO SCH (08:43)
--- NOTE | 2016-08-02 08:48 | Physical Therapy Daily Note ---
PT Daily Note-Current Subjective Patient in bathroom pre tx, needs assist getting pants and brief up. No complaints of pain but he does state his left ankle is sore from people twisting on it to get it into his AFO and shoe. Appearance Patient in wheelchair post tx, has nurse call, phone, tray, all needs met. Mental Status Patient Orientation: Normal For Age Transfers Functional [place] Measure 0=Not Assessed/NA 4=Minimal Assistance 1=Total Assistance 5=Supervision or Setup 2=Maximal Assistance 6=Modified [place] 3=Moderate Assistance 7=Complete IndependenceIRFPAI Quality Coding Scale 6 Independent with activity with or without an assistive device 5 Patient requires set up or clean up by helper. Patient completes activity by themselves 4 Supervision or touching assist (CGA). [place] provide cues , steadying assist 3 The helper provides less than half the effort to complete the activity 2 The helper provides more than half the effort to complete the activity 1 Dependent. The helper does all the effort to complete an activity 7 Patient refused to complete or attempt activity 9 The patient did not perform the activity before the current illness or injury 88 Not attempted due to Medical conditions or safety concerns Transfers (B, C, W/C) (FIM): 4 Scootin Rollin Supine to/from Sit: 4 Sit to/from Stand: 4 Bed to/from Chair: 4 Patient is SBA for bed mobility except he needs min assist to get his left leg into bed. Sit to stand and transfers are CGA. Gait Training Gait (FIM): 2 Distance: 130', 100' Gait Level of Assist: 4 Gait Persons Needed: 1 Gait Assistive Device: Cane Large Base Quad Slow, left AFO, patient pretty fatigued today. Exercises Standing: Sit to Stand Standing Reps: 20 Treatments dressing, bed mobility practiced several times to each side, transfers, ambulation, functional strengthening Assessment Current Status: Fair Progress improving bed mobility, as soon as he can get his left leg into bed he will be able to do it himself PT Short Term Goals Short Term Goals Time Frame: Jul 22, 2016 Gait (FIM): 2 Gait Distance Comment: 70' Gait Level of Assist: 5 Gait Assistive Device: Cane Large Base Quad Wheelchair Distance: 150' PT Detention Goals Detention Goals PT Detention Goals Time Frame: Aug 05, 2016 Transfers (B,C,W/C) (FIM): 6 Sit to Lying (QC): 6 Lying-Sitting on Side/Bed(QC): 6 Sit to Stand (QC): 6 Rollin Roll Left to Right (QC): 6 Chair/Jvw-nz-Nnchs Xfer(QC): 6 Car Transfer (QC): 4 Gait (FIM): 6 Distance: 150' Walk 10 feet (QC): 6 Walk 10ft-Uneven Surface(QC): 6 Walk 50ft with 2 Turns (QC): 6 Walk 150 ft (QC): 6 Gait Assistive Device: Cane Large Base Quad Stairs (FIM): 2 # of Steps: 4 1 Step (curb) (QC): 4 4 Steps (QC): 4 12 Steps (QC): 88 Stairs Level Of Assist: 5 Picking up an Object (QC): 5 PT Plan Problem List Problem List: Activity Tolerance, Functional Strength, Safety, Balance, Gait, Transfer, Bed Mobility, ROM Treatment/Plan Treatment Plan: Continue Plan of Care Treatment Plan: Bed Mobility, Education, Functional Activity Madalyn, Functional Strength, Group Therapy, Gait, Safety, Therapeutic Exercise, Transfers Treatment Duration: Aug 05, 2016 Visits Per Week: 10-11 Minutes/Day (M-F): 60-90 Minutes/Day (Sat/Bryant): 15-30 Safety Risks/Education Patient Education: Gait Training, Transfer Techniques, Safety Issues Teaching Recipient: Patient Teaching Methods: Demonstration, Discussion Response to Teaching: Reinforcement Needed Time/GCodes Time In: 800 Time Out: 845 Total Billed Treatment Time: 45 Total Billed Treatment 1 visit FA 15 min EX 10 min GT 20 min ADONAY MULLEN PT Aug 02, 2016 08:48
--- NOTE | 2016-08-02 10:49 | Speech Therapy Daily Note ---
Speech Daily Progress Note Subjective The patient was seated upright in wheelchair upon entrance. The patient greeted the clinician appropriately and agreed to participate in the dysphagia treatment session. Objective Dysphagia Exercises: The patient continues to demonstrate high accuracy on this date, displaying 90% with laryngeal, base of tongue, and pharyngeal strengthening exercises. Mild clinician verbal prompting was provided throughout the session. The Shaker exercise was deferred as the patient was sitting upright for session. Assessment Assessment Current Status: Good Progress Treatment Plan Continue Plan of Care Communication Comprehension: 5 Expression: 5 Social Cognition Social Interaction: 6 Problem Solvin Memory: 5 Speech Short Term Goals Short Term Goals Short Term Goals 1. The patient will demonstrate oral motor exercises with 90% accuracy, independently. 2. The patient will demonstrate 90% intelligible with functional phrases, independently. 3. The patient will demonstrate dysphagia exercises with 90% accuracy, independently. Time Frame-STG: Two Weeks Speech Instant Potato Processing Supervisor Goals [place] Goals 1. The patient will demonstrate improved expressive communication for increased safety and function with ADL's. 2. The patient will tolerate the least restrictive diet without signs/symptoms of aspiration or laryngeal penetration. Progressing. (07/19/16) Time Frame: Four Weeks Comprehension: 6 Expression: 5 Social Interaction: 5 Problem Solvin Memory: 5 Speech-Plan Treatment Plan Speech Therapy Treatment Plan: Continue Plan of Care Continue skilled dysphagia therapy to strengthen laryngeal, pharyngeal, and base of tongue musculature. Treatment Duration: Aug 12, 2016 # of days/week Four to Five Visits Per Week: Four to Five Minutes/Day (M-F): 30-45 Rehab Potential: Fair Safety Risks/Education Teaching Recipient: Patient Teaching Methods: Demonstration, Handout Response to Teaching: Return Demonstration, Reinforcement Needed Education Topics Provided: Dysphagia Exercises Time Speech Therapy Time In: 09:15 Speech Therapy Time Out: 09:45 Total Billed Time: 30 Billed Treatment Time JANY Devlin ELIZABETH Aug 02, 2016 10:49
--- NOTE | 2016-08-02 11:06 | Occupational Ther Daily Note ---
OT Current Status-Daily Note Subjective Pt sitting in w/c and alert. Pt agreed to therapy. No c/o pain. Mental Status/Objective Patient Orientation: Person, Place, Time, Situation Functional [place] Measure 0=Not Assessed/NA 4=Minimal Assistance 1=Total Assistance 5=Supervision or Setup 2=Maximal Assistance 6=Modified [place] 3=Moderate Assistance 7=Complete [place] ADL-Treatment Pt maneuvered w/c out of room and to [facility] area table. Pt then completed AAROM table top for UE's. Pt demonstrated active movement in scapula and shldr , tricep and bicep during stretching and ROM exercises. Pt tolerated stretch and joint mobilization to DIP/PIP/IP joints. Then pt used R UE to set self up with breakfast. Pt required assistance to initially cut ham then pt cut ham into smaller pieces with fork. Pt was able to open small packages and pudding container by self. Used regular utensils to feed self. After therapy, pt sitting in w/c in room with call light/phone in reach. All needs met in reach. Functional [place] Measure 0=Not Assessed/NA 4=Minimal Assistance 1=Total Assistance 5=Supervision or Setup 2=Maximal Assistance 6=Modified [place] 3=Moderate Assistance 7=Complete IndependenceIRFPAI Quality Coding Scale 6 Independent with activity with or without an assistive device 5 Patient requires set up or clean up by helper. Patient completes activity by themselves 4 Supervision or touching assist (CGA). [place] provide cues , steadying assist 3 The helper provides less than half the effort to complete the activity 2 The helper provides more than half the effort to complete the activity 1 Dependent. The helper does all the effort to complete an activity 7 Patient refused to complete or attempt activity 9 The patient did not perform the activity before the current illness or injury 88 Not attempted due to Medical conditions or safety concerns Eating (FIM): 5 OT Short Term Goals Short Term Goals Time Frame: Jul 22, 2016 Bathing(FIM): 4 Upper Body Dressing(FIM): 4 Lower Body Dressing(FIM): 3 Toileting(FIM): 4 Toilet/Commode Transfer(FIM): 4 Shower Transfer(FIM): 4 (CGA) Additional Short Term Goals: 1-Demonstrate ADL Tasks, 2-Verbalize Understanding , 3-ImproveStrength/Madalyn 1=Demonstrate adherence to instructed precautions during ADL tasks. 2=Patient will verbalize/demonstrate understanding of assistive devices/ modifications for ADL. 3=Patient will improve strength/tolerance for activity to enable patient to perform ADL's. OT Group Home Goals [employer] Goals Time Frame: Aug 05, 2016 Eating (FIM): 6 Eating (QC): 6 Groomin Oral Hygiene (QC): 6 Bathing(FIM): 4 Shower/Bathe Self (QC): 4 Upper Body Dressing(FIM): 6 Upper Body Dressing (QC): 6 Lower Body Dressing(FIM): 5 Lower Body Dressing (QC): 5 On/Off Footwear (QC): 4 Toileting Hygiene (QC): 5 Toilet/Commode Transfer(FIM): 5 Toilet/Commode Transfer (QC): 5 Shower Transfer(FIM): 5 Comprehension(FIM): 6 Expression (FIM): 5 Social Interaction(FIM): 5 Problem Solving(FIM): 5 Memory(FIM): 5 Additional Goals: 1-Demonstrate ADL Tasks, 2-Verbalize Understanding, 3- ImproveStrength/Madalyn 1=Demonstrate adherence to instructed precautions during ADL tasks. 2=Patient will verbalize/demonstrate understanding of assistive devices/ modifications for ADL. 3=Patient will improve strength/tolerance for activity to enable patient to perform ADL's. OT Education/Plan Problem List/Assessment Pt to benefit from skilled OT intervention for ADL training, transfers, ROM/ strengthening, and safety education to maximize level of independence and allow safe discharge. Discharge Recommendations Plan/Recommendations: Continue POC Treatment Plan/Plan of Care Patient would benefit from OT for education, treatment and training to promote independence in ADL's, mobility, safety and/or upper extremity function for ADL' s. Plan of Care: ADL Retraining, Functional Mobility, Group Exercise/Act as Ind, Orthotic Fitting/Training, UE Funct Exercise/Act, UE Neuromus Re-Ed/Coord Treatment Duration: Aug 05, 2016 Visits Per Week: 10-11 Minutes/Day (M-F): 60-90 Minutes/Day (Sat/Bryant): PRN Agreement: Yes Rehab Potential: Fair Time/GCodes Start Time: 07:00 Stop Time: 08:00 Total Time Billed (hr/min): 60 Billed Treatment Time 1 visit-EX 2 (30 min) FA 2 (30 min) TULIO BERGMAN Aug 02, 2016 11:06
--- NOTE | 2016-08-02 14:04 | Therapy Group Daily Note ---
Therapy Daily Group Note Patient Education Topic Home Safety, Fall Prevention Exercises Fine Motor, UE Exercise Other/Notes Pt maneuvered w/c to OT/PT lunch group in [facility]. Group therapy consisted of introductions, socialization, fine motor skills, UE gross motor skills, memory recall of different restaurants were favorites, kitchen/ home safety and AE in kitchen and eating. Pt actively participated in group and contributed to discussions around the table appropriately. Pt was able to open/ close container and packages with assist for one bottle. Pt maneuvered w/c back to room by self. Pt sitting in room talking on his phone after group. All needs met in room. Start Time: 12:00 Stop Time: 13:10 Total Billed Treatment Time: 70 Total Billed Treatment 1-GRP TULIO BERGMAN DIRECTOR SELECTION AND ADMINISTRATION Aug 02, 2016 14:04 TULIO SOUSA PT Aug 06, 2016 11:06
[2016-08-02] MEDS: ALFUZOSIN HCL 10 MG TAB (UROXATRAL) PO SCH (17:34)
[2016-08-02] MEDS: warFARin 5 MG (COUMADIN) TAB PO SCH (17:34)
[2016-08-02 17:58] VITALS: BP 130/84
[2016-08-02] MEDS: MELATONIN 3 MG TABLET PO SCH (19:29)
[2016-08-02] MEDS: ALPRAZolam 0.5 MG (XANAX) TAB PO SCH (20:45)
[2016-08-02] MEDS: ATORVASTATIN 40 MG (LIPITOR) TABLET PO SCH (20:45)
[2016-08-02] MEDS: ACETAMINOPHEN 500 MG TAB (TYLENOL) PO PRN (20:46)
[2016-08-03] MEDS: MELATONIN 3 MG TABLET PO SCH ×2 (02:12→21:00)
[2016-08-03 05:00] VITALS: BP 102/66
[2016-08-03 06:32] LABS: BASOPHILS % (AUTO) 1 % (0-10); EOSINOPHILS # (AUTO) 0.1 10^3/uL (0.0-0.3); EOSINOPHILS % (AUTO) 6 % (0-10); LYMPHOCYTES # (AUTO) 0.7 X 10^3 (1.0-4.0); LYMPHOCYTES % (AUTO) 32 % (12-44); MEAN CORPUSCULAR HEMOGLOBIN 27 PG (25-34); MEAN CORPUSCULAR HGB CONC 33 G/DL (32-36); MEAN CORPUSCULAR VOLUME 81 FL (80-99); MEAN PLATELET VOLUME 10.5 FL (7.4-10.4); MONOCYTES # (AUTO) 0.3 X 10^3 (0.0-1.0); MONOCYTES % (AUTO) 13 % (0-12); NEUTROPHILS # (AUTO) 1.1 X 10^3 (1.8-7.8); NEUTROPHILS % (AUTO) 48 % (42-75); PLATELET COUNT 93 10^3/uL (130-400); RED BLOOD COUNT 4.46 10^6/uL (4.35-5.85); RED CELL DISTRIBUTION WIDTH 18.1 % (10.0-14.5); WHITE BLOOD COUNT 2.3 10^3/uL (4.3-11.0)
[2016-08-03 06:35] LABS: INR 2.7 (0.8-1.4); PROTHROMBIN TIME PATIENT 28.9 SEC (12.2-14.7)
[2016-08-03 06:44] LABS: CALCIUM 9.8 MG/DL (8.5-10.1); CREATININE SERUM 1.63 MG/DL (0.60-1.30); POTASSIUM 4.2 MMOL/L (3.6-5.0)
[2016-08-03 08:38] VITALS: BP 111/68
[2016-08-03] MEDS: OMEGA 3 (FISH OIL) 1000 MG CAP PO SCH (08:38)
[2016-08-03] MEDS: LORATADINE (CLARITIN) 10 MG TAB PO SCH (08:39)
[2016-08-03] MEDS: CLOPIDOGREL 75 MG (PLAVIX) TABLET PO SCH (08:39)
[2016-08-03] MEDS: FAMOTIDINE 20 MG (PEPCID) TABLET PO SCH (08:39)
[2016-08-03] MEDS: LACTOBACILLUS Acidoph/Bulgar (LACTINEX/FLORANEX) TAB PO SCH ×2 (08:39→20:25)
[2016-08-03] MEDS: POLYETHYLENE GLYCOL 17 GM (MIRALAX) PACK PO SCH (08:39)
[2016-08-03] MEDS: GABAPENTIN 300 MG (NEURONTIN) CAP PO SCH ×3 (08:39→20:25)
[2016-08-03] MEDS: CARVEDILOL 6.25 MG (COREG) TAB PO SCH ×2 (08:39→20:25)
[2016-08-03] MEDS: SACUBITRIL/VALSARTAN 24/26 MG (ENTRESTO) TABLET PO SCH ×2 (08:39→21:00)
[2016-08-03] MEDS: MAGNESIUM OXIDE (MAG-OX)400 MG TAB PO SCH (08:39)
[2016-08-03] MEDS: DICLOFENAC 1% GEL 100 GM (VOLTAREN) TUBE TOP SCH ×4 (08:40→21:00)
[2016-08-03] MEDS: FLUTICASONE NASAL SPRAY (FLONASE) 16 GM BTL NS SCH (08:40)
--- NOTE | 2016-08-03 08:51 | Physical Therapy Daily Note ---
PT Daily Note-Current Subjective Pt sitting in W/C upon arrival. PT agrees to PT this morning. Pain Numeric Pain Scale: 0-No Pain Location: No Pain Reported Mental Status Patient Orientation: Person, Place, Time, Situation Attachments: Other-See Comments (AFO for LLE) Transfers Functional [place] Measure 0=Not Assessed/NA 4=Minimal Assistance 1=Total Assistance 5=Supervision or Setup 2=Maximal Assistance 6=Modified [place] 3=Moderate Assistance 7=Complete IndependenceIRFPAI Quality Coding Scale 6 Independent with activity with or without an assistive device 5 Patient requires set up or clean up by helper. Patient completes activity by themselves 4 Supervision or touching assist (CGA). [place] provide cues , steadying assist 3 The helper provides less than half the effort to complete the activity 2 The helper provides more than half the effort to complete the activity 1 Dependent. The helper does all the effort to complete an activity 7 Patient refused to complete or attempt activity 9 The patient did not perform the activity before the current illness or injury 88 Not attempted due to Medical conditions or safety concerns Transfers (B, C, W/C) (FIM): 4 Scootin Supine to/from Sit: 4 Sit to/from Stand: 4 Sit to Lying (QC): 4 Sit to Stand (QC): 4 Chair/Bbe-do-Tybkx Xfer(QC): 4 Bed to/from Chair: 4 Weight Bearing Weight Bearing Restriction: Full Weight Bearing Location Restriction: LE Bilateral Gait Training Does the Patient Walk?: Yes Gait (FIM): 2 Distance (FIM): 3=382-04 ft Distance: 50' Walk 10 feet (QC): 4 Walk 50 ft with 2 Turns(QC): 4 Walk 150 ft (QC): 88 Walking 10ft/uneven surface-QC: 88 Gait Level of Assist: 4 Gait Persons Needed: 1 Gait Assistive Device: Cane Single Point Pt has slow jackson and needs assistance of CGA-Min A for stability with SPC. Pt is improving with gait though. Wheelchair Training Does the Pt Use a Wheelchair?: Yes Wheelchair (FIM): 2 Wheelchair Distance: 0=964-75 ft Distance: 50' Wheelchair Level of Assist: 5 Wheel 50 ft with 2 turns (QC): 5 Type of Wheelchair: Manual Pt is able to propel self in W/C but needs assistance with occasionally locking brake on L side and moving L foot pedal up out of way when not used as well as down in position to use. Exercises Supine Ex: Heel Slides, Straight leg raise Supine Reps: 10 NuStep Minutes: 10 NuStep Workload: 4 Treatments Pt propels self to [facility] for tx. Pt transfers from W/C to NuStep using SPT. Pt used NuStep for 10m at Workload 4. Pt then took short rest before transferring from NuStep to standing using SPC at [facility]. Pt rested in W/C after ambulation before transferring to mat for a couple supine EX per pt's request. Pt then returned to W/C via SPT at [facility]. Pt propelled back to room and wanted to transfer back to bed to rest. Pt transferred from W/C to EOB via SPT at [facility]. Pt transferred EOB to supine at Min A for assistance with LLE. Pt left with all needs met at end of tx. Assessment Current Status: Good Progress Pt improving with independence of transfers and mobility with less restrictive AD. Pt works hard and is motivated. PT Short Term Goals Short Term Goals Time Frame: Jul 22, 2016 Gait (FIM): 2 Gait Distance Comment: 70' Gait Level of Assist: 5 Gait Assistive Device: Cane Large Base Quad Wheelchair Distance: 150' PT Group Home Goals [employer]ographic Services Specialist Goals PT Group Home Goals Time Frame: Aug 05, 2016 Transfers (B,C,W/C) (FIM): 6 Sit to Lying (QC): 6 Lying-Sitting on Side/Bed(QC): 6 Sit to Stand (QC): 6 Rollin Roll Left to Right (QC): 6 Chair/Ukn-wx-Njbqu Xfer(QC): 6 Car Transfer (QC): 4 Gait (FIM): 6 Distance: 150' Walk 10 feet (QC): 6 Walk 10ft-Uneven Surface(QC): 6 Walk 50ft with 2 Turns (QC): 6 Walk 150 ft (QC): 6 Gait Assistive Device: Cane Large Base Quad Stairs (FIM): 2 # of Steps: 4 1 Step (curb) (QC): 4 4 Steps (QC): 4 12 Steps (QC): 88 Stairs Level Of Assist: 5 Picking up an Object (QC): 5 PT Plan Problem List Problem List: Activity Tolerance, Functional Strength, Safety, Balance, Gait, Transfer Treatment/Plan Treatment Plan: Continue Plan of Care Treatment Plan: Bed Mobility, Education, Functional Activity Madalyn, Functional Strength, Group Therapy, Gait, Safety, Therapeutic Exercise, Transfers Treatment Duration: Aug 05, 2016 Visits Per Week: 10-11 Minutes/Day (M-F): 60-90 Minutes/Day (Sat/Bryant): 15-30 Safety Risks/Education Patient Education: Gait Training, Transfer Techniques, Correct Positioning, Safety Issues Teaching Recipient: Patient Teaching Methods: Discussion Response to Teaching: Verbalize Understanding Time/GCodes Time In: 700 Time Out: 735 Total Billed Treatment Time: 35 Total Billed Treatment visit, GT (15m) & EX (20m) EZRA CAIN BOARD OF DIRECTORS Aug 03, 2016 08:51
[2016-08-03] MEDS: warFARin 5 MG (COUMADIN) TAB PO SCH (17:12)
[2016-08-03] MEDS: ALFUZOSIN HCL 10 MG TAB (UROXATRAL) PO SCH (17:12)
[2016-08-03 18:11] VITALS: BP 155/80
[2016-08-03] MEDS: ACETAMINOPHEN 500 MG TAB (TYLENOL) PO PRN (20:25)
[2016-08-03] MEDS: ALPRAZolam 0.5 MG (XANAX) TAB PO SCH (20:25)
[2016-08-03] MEDS: ATORVASTATIN 40 MG (LIPITOR) TABLET PO SCH (20:25)
[2016-08-04] MEDS: ACETAMINOPHEN 500 MG TAB (TYLENOL) PO PRN ×2 (04:09→20:15)
[2016-08-04 05:04] VITALS: BP 126/72
[2016-08-04 05:18] LABS: BASOPHILS % (AUTO) 0 % (0-10); EOSINOPHILS # (AUTO) 0.2 10^3/uL (0.0-0.3); EOSINOPHILS % (AUTO) 6 % (0-10); LYMPHOCYTES # (AUTO) 0.7 X 10^3 (1.0-4.0); LYMPHOCYTES % (AUTO) 27 % (12-44); MEAN CORPUSCULAR HEMOGLOBIN 27 PG (25-34); MEAN CORPUSCULAR HGB CONC 33 G/DL (32-36); MEAN CORPUSCULAR VOLUME 81 FL (80-99); MEAN PLATELET VOLUME 10.8 FL (7.4-10.4); MONOCYTES # (AUTO) 0.4 X 10^3 (0.0-1.0); MONOCYTES % (AUTO) 15 % (0-12); NEUTROPHILS # (AUTO) 1.3 X 10^3 (1.8-7.8); NEUTROPHILS % (AUTO) 51 % (42-75); PLATELET COUNT 92 10^3/uL (130-400); RED BLOOD COUNT 3.88 10^6/uL (4.35-5.85); RED CELL DISTRIBUTION WIDTH 17.5 % (10.0-14.5); WHITE BLOOD COUNT 2.5 10^3/uL (4.3-11.0)
[2016-08-04 05:31] LABS: INR 2.8 (0.8-1.4); PROTHROMBIN TIME PATIENT 29.3 SEC (12.2-14.7)
[2016-08-04 05:39] LABS: ALBUMIN 3.5 G/DL (3.2-4.5); CALCIUM 9.2 MG/DL (8.5-10.1); CREATININE SERUM 1.42 MG/DL (0.60-1.30); PHOSPHORUS 4.1 MG/DL (2.3-4.7); POTASSIUM 3.8 MMOL/L (3.6-5.0)
[2016-08-04 08:30] VITALS: BP 124/76
[2016-08-04] MEDS: FLUTICASONE NASAL SPRAY (FLONASE) 16 GM BTL NS SCH (08:37)
[2016-08-04] MEDS: POLYETHYLENE GLYCOL 17 GM (MIRALAX) PACK PO SCH (08:38)
[2016-08-04] MEDS: MAGNESIUM OXIDE (MAG-OX)400 MG TAB PO SCH (08:38)
[2016-08-04] MEDS: FAMOTIDINE 20 MG (PEPCID) TABLET PO SCH (08:38)
[2016-08-04] MEDS: GABAPENTIN 300 MG (NEURONTIN) CAP PO SCH ×3 (08:38→20:15)
[2016-08-04] MEDS: CLOPIDOGREL 75 MG (PLAVIX) TABLET PO SCH (08:38)
[2016-08-04] MEDS: LACTOBACILLUS Acidoph/Bulgar (LACTINEX/FLORANEX) TAB PO SCH ×2 (08:38→20:15)
[2016-08-04] MEDS: OMEGA 3 (FISH OIL) 1000 MG CAP PO SCH (08:38)
[2016-08-04] MEDS: DICLOFENAC 1% GEL 100 GM (VOLTAREN) TUBE TOP SCH ×4 (08:38→20:16)
[2016-08-04] MEDS: CARVEDILOL 6.25 MG (COREG) TAB PO SCH ×3 (08:38→20:15)
[2016-08-04] MEDS: LORATADINE (CLARITIN) 10 MG TAB PO SCH (08:38)
[2016-08-04] MEDS: SACUBITRIL/VALSARTAN 24/26 MG (ENTRESTO) TABLET PO SCH ×2 (08:39→20:13)
[2016-08-04 17:10] VITALS: BP 128/80
[2016-08-04] MEDS: ALFUZOSIN HCL 10 MG TAB (UROXATRAL) PO SCH (17:38)
[2016-08-04] MEDS: warFARin 5 MG (COUMADIN) TAB PO SCH (17:38)
[2016-08-04 20:13] VITALS: BP 119/76
[2016-08-04] MEDS: MELATONIN 3 MG TABLET PO SCH (20:14)
[2016-08-04] MEDS: ATORVASTATIN 40 MG (LIPITOR) TABLET PO SCH (20:15)
[2016-08-04] MEDS: ALPRAZolam 0.5 MG (XANAX) TAB PO SCH (21:38)
[2016-08-05] MEDS: ACETAMINOPHEN 500 MG TAB (TYLENOL) PO PRN (04:54)
[2016-08-05 05:03] VITALS: BP 134/79
[2016-08-05 05:52] LABS: BASOPHILS % (AUTO) 1 % (0-10); EOSINOPHILS # (AUTO) 0.1 10^3/uL (0.0-0.3); EOSINOPHILS % (AUTO) 5 % (0-10); LYMPHOCYTES # (AUTO) 0.7 X 10^3 (1.0-4.0); LYMPHOCYTES % (AUTO) 29 % (12-44); MEAN CORPUSCULAR HEMOGLOBIN 26 PG (25-34); MEAN CORPUSCULAR HGB CONC 33 G/DL (32-36); MEAN CORPUSCULAR VOLUME 81 FL (80-99); MEAN PLATELET VOLUME 10.8 FL (7.4-10.4); MONOCYTES # (AUTO) 0.3 X 10^3 (0.0-1.0); MONOCYTES % (AUTO) 12 % (0-12); NEUTROPHILS # (AUTO) 1.2 X 10^3 (1.8-7.8); NEUTROPHILS % (AUTO) 53 % (42-75); PLATELET COUNT 82 10^3/uL (130-400); RED BLOOD COUNT 4.24 10^6/uL (4.35-5.85); RED CELL DISTRIBUTION WIDTH 17.5 % (10.0-14.5); WHITE BLOOD COUNT 2.3 10^3/uL (4.3-11.0)
[2016-08-05 06:02] LABS: INR 2.8 (0.8-1.4); PROTHROMBIN TIME PATIENT 29.3 SEC (12.2-14.7)
[2016-08-05 07:15] VITALS: BP 114/65
[2016-08-05] MEDS: LORATADINE (CLARITIN) 10 MG TAB PO SCH (08:02)
[2016-08-05] MEDS: CLOPIDOGREL 75 MG (PLAVIX) TABLET PO SCH (08:03)
[2016-08-05] MEDS: LACTOBACILLUS Acidoph/Bulgar (LACTINEX/FLORANEX) TAB PO SCH ×2 (08:03→20:11)
[2016-08-05] MEDS: FAMOTIDINE 20 MG (PEPCID) TABLET PO SCH (08:03)
[2016-08-05] MEDS: GABAPENTIN 300 MG (NEURONTIN) CAP PO SCH ×3 (08:04→20:11)
[2016-08-05] MEDS: OMEGA 3 (FISH OIL) 1000 MG CAP PO SCH (08:04)
[2016-08-05] MEDS: MAGNESIUM OXIDE (MAG-OX)400 MG TAB PO SCH (08:04)
[2016-08-05] MEDS: CARVEDILOL 6.25 MG (COREG) TAB PO SCH ×2 (08:04→20:11)
[2016-08-05] MEDS: DICLOFENAC 1% GEL 100 GM (VOLTAREN) TUBE TOP SCH ×4 (08:06→20:18)
[2016-08-05] MEDS: FLUTICASONE NASAL SPRAY (FLONASE) 16 GM BTL NS SCH (08:06)
[2016-08-05 08:08] VITALS: BP 119/72
[2016-08-05] MEDS: POLYETHYLENE GLYCOL 17 GM (MIRALAX) PACK PO SCH (08:08)
--- NOTE | 2016-08-05 08:31 | Progress Note (SOAP) ---
Subjective Subjective/Events-last exam patient doing better. Patient left ankle swollen little. Low White blood cell count and platelet count . Consult with hematology. Patient did not take entresto this weekend and refused Objective Exam Vital Signs Date Time Temp Pulse Resp B/P Pulse Ox O2 Delivery O2 Flow Rate FiO2 08/05/16 08:08 73 20 119/72 08/05/16 07:15 114/65 08/05/16 05:03 97.1 79 18 134/79 95 Room Air 08/04/16 20:23 Room Air 08/04/16 20:13 71 119/76 08/04/16 17:10 96.9 76 18 128/80 100 Room Air 08/04/16 08:44 Room Air 08/04/16 08:30 71 124/76 I & O 08/05/16 07:00 Intake Total 1300 ml Output Total 2650 ml Balance -1350 ml Capillary Refill : General Appearance: No Apparent Distress Thin HEENT: Normal ENT Inspection Neck: Non Tender Respiratory: Chest Non Tender Lungs Clear No Accessory Muscle Use No Respiratory Distress Cardiovascular: Regular Rate, Rhythm Gastrointestinal: non tender soft Results Lab Laboratory Tests 08/05/16 05:45 Laboratory Tests 08/05/16 05:45: Basophils # (Auto) 0.0, Basophils (%) (Auto) 1, Eosinophils # (Auto) 0.1, Eosinophils (%) (Auto) 5, Hematocrit 34L, Hemoglobin 11.2L, INR Comment 2.8H, Lymphocytes # (Auto) 0.7L, Lymphocytes (%) (Auto) 29, Mean Corpuscular Hemoglobin 26, Mean Corpuscular Hemoglobin Concent 33, Mean Corpuscular Volume 81, Mean Platelet Volume 10.8H, Monocytes # (Auto) 0.3, Monocytes (%) (Auto) 12 , Neutrophils # (Auto) 1.2L, Neutrophils (%) (Auto) 53, Platelet Count 82L, Prothrombin Time 29.3H, Red Blood Count 4.24L, Red Cell Distribution Width 17.5H , White Blood Count 2.3L Assessment/Plan Assessment/Plan Assess & Plan/Chief Complaint . . weakness. Previous stroke. Sepsis. UTI. Hyponatremia. History of LV thrombus. Acute kidney injury. . 07/17/16 weakness. Sepsis history. Hyponatremia. CVA on left. Patient feeling better todayarea . 06/2616. Weakness. Confusion this morning. Trouble swallowing this morning blood tests CAT scan negative. To give some IV fluids. . 07/19/16. Weakness less. Confusion better. CAT scan of the head negative. Previous stroke. Sepsis. UTI. Hyponatremia. . 07/22/16. Weakness less. More alert. No confusion. Previous stroke on left side. Left knee bothering him.. . Weakness. Previous stroke. Sepsis. Hyponatremia. Patient doing much better.. . 07/24/16. Patient states he is doing better. Patient positive area Patient has weakness of previous stroke. Tablet feelings about this patient's. . 07/25/16. Weakness. Previous CVA. Sepsis. UTI. Hyponatremia. Patient is stronger and improving and feeling positive about himself. . 07/26/16. Weakness. Previous CVA. Sepsis. UTI. Hyponatremia. Patient had a good workup with physical therapy and occupational therapy yesterday.. Patient feels he is getting stronger. . 07/29/16. Weakness is improving. Previous stroke. Sepsis history. UTI. Hyponatremia history patient had trouble getting out of bed and getting exercises with this. Patient has headache this morning. . 07/30/16. Weakness. Previous stroke. Sepsis. UTI. Hyponatremia resolved. Patient doing better and improving. . 07/31/16 . . Debility. Previous stroke. UTI. Hyponatremia. Patient having tarry loose stools. . 08/01/16. Leukopenia. Thrombocytopenia. Patient having muscle spasms in weak side. Weakness. Previous stroke. Sepsis. UTI. Hyponatremia. . 04/01/17 leukopenia. Thrombocytopenia. Previous stroke. Sepsis. Hyponatremia. Patient doing better with physical therapy. Platelet count went up to 97,000. White blood cell count 2500 . . 08/05/16. Weakness. Previous stroke. Leukopenia. Thrombocytopenia consult with hematology. Sepsis. UTI. Hyponatremia Diagnosis/Problems: Clinical Quality Measures DVT/VTE Risk/Contraindication: Risk Factor Score Per Nursin RFS Level Per Nursing on Admit: 4+=Very High VAIBHAV ZAIDI DO Aug 05, 2016 08:31
--- NOTE | 2016-08-05 08:47 | Physical Therapy Daily Note ---
PT Daily Note-Current Subjective Patient in wheelchair pre tx, agrees to PT, just got done with OT. Patient has some pain and swelling of the left ankle, states it is from other healthcare workers twisting his ankle to fit his foot into his AFO and shoe. Appearance Patient in wheelchair post tx, has ST right after PT, recommended to patient to get back into bed after ST and elevate left leg to decrease swelling. Mental Status Patient Orientation: Normal For Age Transfers Functional [place] Measure 0=Not Assessed/NA 4=Minimal Assistance 1=Total Assistance 5=Supervision or Setup 2=Maximal Assistance 6=Modified [place] 3=Moderate Assistance 7=Complete IndependenceIRFPAI Quality Coding Scale 6 Independent with activity with or without an assistive device 5 Patient requires set up or clean up by helper. Patient completes activity by themselves 4 Supervision or touching assist (CGA). [place] provide cues , steadying assist 3 The helper provides less than half the effort to complete the activity 2 The helper provides more than half the effort to complete the activity 1 Dependent. The helper does all the effort to complete an activity 7 Patient refused to complete or attempt activity 9 The patient did not perform the activity before the current illness or injury 88 Not attempted due to Medical conditions or safety concerns Transfers (B, C, W/C) (FIM): 5 Sit to/from Stand: 5 Bed to/from Chair: 5 SBA, slow but careful transfers Exercises Standing: Hip Abduction, Marching, Mini squats Standing Reps: 20 NuStep Minutes: 15 NuStep Workload: 4 Treatments transfers, functional strengthening, inspected left ankle and he has swelling from the midcalf down, pitting edema especially on foot, foot is slightly darker than right foot but seems to have ok capillary refill, no bruising Assessment Current Status: Poor Progress decreased difficulty in PT due to left ankle pain and swelling PT Short Term Goals Short Term Goals Time Frame: Jul 22, 2016 Gait (FIM): 2 Gait Distance Comment: 70' Gait Level of Assist: 5 Gait Assistive Device: Cane Large Base Quad Wheelchair Distance: 50' PT Finish Mill Operator Goals [employer]ish Mill Operator Goals PT Skilled Nursing Goals Time Frame: Aug 05, 2016 Transfers (B,C,W/C) (FIM): 6 Sit to Lying (QC): 6 Lying-Sitting on Side/Bed(QC): 6 Sit to Stand (QC): 6 Rollin Roll Left to Right (QC): 6 Chair/Gpz-bu-Zolve Xfer(QC): 6 Car Transfer (QC): 4 Gait (FIM): 6 Distance: 150' Walk 10 feet (QC): 6 Walk 10ft-Uneven Surface(QC): 6 Walk 50ft with 2 Turns (QC): 6 Walk 150 ft (QC): 6 Gait Assistive Device: Cane Large Base Quad Stairs (FIM): 2 # of Steps: 4 1 Step (curb) (QC): 4 4 Steps (QC): 4 12 Steps (QC): 88 Stairs Level Of Assist: 5 Picking up an Object (QC): 5 PT Plan Problem List Problem List: Activity Tolerance, Functional Strength, Safety, Balance, Gait, Transfer, Bed Mobility, ROM Treatment/Plan Treatment Plan: Continue Plan of Care Treatment Plan: Bed Mobility, Education, Functional Activity Madalyn, Functional Strength, Group Therapy, Gait, Safety, Therapeutic Exercise, Transfers Treatment Duration: Aug 05, 2016 Visits Per Week: 10-11 Minutes/Day (M-F): 60-90 Minutes/Day (Sat/Bryant): 15-30 Safety Risks/Education Patient Education: Transfer Techniques, Correct Positioning, Safety Issues Teaching Recipient: Patient Teaching Methods: Demonstration, Discussion Response to Teaching: Reinforcement Needed Time/GCodes Time In: 800 Time Out: 845 Total Billed Treatment Time: 45 Total Billed Treatment 1 visit EX 30 min FA 15 min ADONAY MULLEN PT Aug 05, 2016 08:47
[2016-08-05] MEDS: SACUBITRIL/VALSARTAN 24/26 MG (ENTRESTO) TABLET PO SCH ×2 (09:00→20:11)
--- NOTE | 2016-08-05 11:50 | Occupational Ther Daily Note ---
OT Current Status-Daily Note Subjective Pt alert, sitting in w/c. Pt agreed to therapy. C/o pain in L ankle, stating that his ankle felt like it was sprained. Pt's ankle and foot were swollen. PT notified. Pt was talking with more of a slur today, took BP (114/65). Reported to nrsg. Mental Status/Objective Patient Orientation: Person, Place, Time, Situation Functional [place] Measure 0=Not Assessed/NA 4=Minimal Assistance 1=Total Assistance 5=Supervision or Setup 2=Maximal Assistance 6=Modified [place] 3=Moderate Assistance 7=Complete [place] ADL-Treatment Functional [place] Measure 0=Not Assessed/NA 4=Minimal Assistance 1=Total Assistance 5=Supervision or Setup 2=Maximal Assistance 6=Modified [place] 3=Moderate Assistance 7=Complete IndependenceIRFPAI Quality Coding Scale 6 Independent with activity with or without an assistive device 5 Patient requires set up or clean up by helper. Patient completes activity by themselves 4 Supervision or touching assist (CGA). [place] provide cues , steadying assist 3 The helper provides less than half the effort to complete the activity 2 The helper provides more than half the effort to complete the activity 1 Dependent. The helper does all the effort to complete an activity 7 Patient refused to complete or attempt activity 9 The patient did not perform the activity before the current illness or injury 88 Not attempted due to Medical conditions or safety concerns Grooming (FIM): 5 (After set up for dentures, pt is able to complete all grooming by self.) Oral Hygiene (QC): 4 Bathing (FIM): 5 (Using grabbar, tub seat with back, hand held shower and long handle sponge pt is able to bathe self with SBA, when standing to cleanse buttocks close SBA for safety.) Upper Body (FIM): 5 (Pt is able to retrieve clothing in w/c from closet. Pt is able to don basting puller shirt though requires assistance to don button up shirt.) Lower Body Dressing (FIM): 4 (Pt retrieves clothing from closet in w/c. Pt is able to don/doff clothing with SBA over feet and close SBA when standing to hike pants over hips. Pt is able to don/doff socks by self though requires assistance to don L shoe/brace.) Toileting (FIM): 5 (Pt is able to complete using grabbars and BSC with SBA.) Transfers (B, C, W/C) (FIM): 5 (SBA with stand pivot transfers.) Toilet/Commode Transfer (FIM): 5 (Using grabbar and BSC pt is able to complete transfer with SBA.) Shower Transfer(FIM): 5 (Using grabbars and tub seat with back, pt is able to complete with close SBA for safety.) After therapy, pt sitting in w/c with call light/phone in reach. All needs met in room. OT Short Term Goals Short Term Goals Time Frame: Jul 22, 2016 Bathing(FIM): 4 Upper Body Dressing(FIM): 4 Lower Body Dressing(FIM): 3 Toileting(FIM): 4 Toilet/Commode Transfer(FIM): 4 Shower Transfer(FIM): 4 (CGA) Additional Short Term Goals: 1-Demonstrate ADL Tasks, 2-Verbalize Understanding , 3-ImproveStrength/Madalyn 1=Demonstrate adherence to instructed precautions during ADL tasks. 2=Patient will verbalize/demonstrate understanding of assistive devices/ modifications for ADL. 3=Patient will improve strength/tolerance for activity to enable patient to perform ADL's. OT Custodial Goals Restaurant Hostess Goals Time Frame: Aug 05, 2016 Eating (FIM): 6 Eating (QC): 6 Groomin Oral Hygiene (QC): 6 Bathing(FIM): 4 Shower/Bathe Self (QC): 4 Upper Body Dressing(FIM): 6 Upper Body Dressing (QC): 6 Lower Body Dressing(FIM): 5 Lower Body Dressing (QC): 5 On/Off Footwear (QC): 4 Toileting Hygiene (QC): 5 Toilet/Commode Transfer(FIM): 5 Toilet/Commode Transfer (QC): 5 Shower Transfer(FIM): 5 Comprehension(FIM): 6 Expression (FIM): 5 Social Interaction(FIM): 5 Problem Solving(FIM): 5 Memory(FIM): 5 Additional Goals: 1-Demonstrate ADL Tasks, 2-Verbalize Understanding, 3- ImproveStrength/Madalyn 1=Demonstrate adherence to instructed precautions during ADL tasks. 2=Patient will verbalize/demonstrate understanding of assistive devices/ modifications for ADL. 3=Patient will improve strength/tolerance for activity to enable patient to perform ADL's. OT Education/Plan Problem List/Assessment Pt to benefit from skilled OT intervention for ADL training, transfers, ROM/ strengthening, and safety education to maximize level of independence and allow safe discharge. Discharge Recommendations Plan/Recommendations: Continue POC Treatment Plan/Plan of Care Patient would benefit from OT for education, treatment and training to promote independence in ADL's, mobility, safety and/or upper extremity function for ADL' s. Plan of Care: ADL Retraining, Functional Mobility, Group Exercise/Act as Ind, Orthotic Fitting/Training, UE Funct Exercise/Act, UE Neuromus Re-Ed/Coord Treatment Duration: Aug 05, 2016 Visits Per Week: 10-11 Minutes/Day (M-F): 60-90 Minutes/Day (Sat/Bryant): PRN Agreement: Yes Rehab Potential: Fair Time/GCodes Start Time: 07:05 Stop Time: 08:00 Total Time Billed (hr/min): 55 Billed Treatment Time 1 visit-ADL 4 (55 min) TULIO BERGMAN Aug 05, 2016 11:50
--- NOTE | 2016-08-05 13:17 | Occupational Ther Daily Note ---
OT Current Status-Daily Note Subjective Pt alert, lying in bed. Pt agreed to therapy. Pt stated that PT encouraged pt to keep L foot elevated. No c/o pain. Mental Status/Objective Patient Orientation: Person, Place, Time, Situation Functional [place] Measure 0=Not Assessed/NA 4=Minimal Assistance 1=Total Assistance 5=Supervision or Setup 2=Maximal Assistance 6=Modified [place] 3=Moderate Assistance 7=Complete [place] ADL-Treatment Functional [place] Measure 0=Not Assessed/NA 4=Minimal Assistance 1=Total Assistance 5=Supervision or Setup 2=Maximal Assistance 6=Modified [place] 3=Moderate Assistance 7=Complete IndependenceIRFPAI Quality Coding Scale 6 Independent with activity with or without an assistive device 5 Patient requires set up or clean up by helper. Patient completes activity by themselves 4 Supervision or touching assist (CGA). [place] provide cues , steadying assist 3 The helper provides less than half the effort to complete the activity 2 The helper provides more than half the effort to complete the activity 1 Dependent. The helper does all the effort to complete an activity 7 Patient refused to complete or attempt activity 9 The patient did not perform the activity before the current illness or injury 88 Not attempted due to Medical conditions or safety concerns Other Treatment Pt was able to go from supine to sitting EOB with bed flat using bedrails. SBA with stand pivot transfer from bed to w/c. Pt worked on tub transfer. Pt's tub at home has a cut out in tub ledge that leaves approximately 3" step over. Pt is able to roll w/c right next to tub ledge and place feet over ledge into tub. Simulated transfer with ARU tub using grabbars on side wall and front wall of tub area. Pt was able to complete with CGA for safety. Pt then worked on arm bike 6 min at 5 babin resistance wrapping L hand with wrap to stay on L handle. Pt was able to demonstrate good movement of L scapula and decreased compensatory movements during motion. After therapy, pt sitting in w/c with call light/phone in reach. All needs met in room. OT Short Term Goals Short Term Goals Time Frame: Jul 22, 2016 Bathing(FIM): 4 Upper Body Dressing(FIM): 4 Lower Body Dressing(FIM): 3 Toileting(FIM): 4 Toilet/Commode Transfer(FIM): 4 Shower Transfer(FIM): 4 (CGA) Additional Short Term Goals: 1-Demonstrate ADL Tasks, 2-Verbalize Understanding , 3-ImproveStrength/Madalyn 1=Demonstrate adherence to instructed precautions during ADL tasks. 2=Patient will verbalize/demonstrate understanding of assistive devices/ modifications for ADL. 3=Patient will improve strength/tolerance for activity to enable patient to perform ADL's. OT Fci Goals Fci Goals Time Frame: Aug 05, 2016 Eating (FIM): 6 Eating (QC): 6 Groomin Oral Hygiene (QC): 6 Bathing(FIM): 4 Shower/Bathe Self (QC): 4 Upper Body Dressing(FIM): 6 Upper Body Dressing (QC): 6 Lower Body Dressing(FIM): 5 Lower Body Dressing (QC): 5 On/Off Footwear (QC): 4 Toileting Hygiene (QC): 5 Toilet/Commode Transfer(FIM): 5 Toilet/Commode Transfer (QC): 5 Shower Transfer(FIM): 5 Comprehension(FIM): 6 Expression (FIM): 5 Social Interaction(FIM): 5 Problem Solving(FIM): 5 Memory(FIM): 5 Additional Goals: 1-Demonstrate ADL Tasks, 2-Verbalize Understanding, 3- ImproveStrength/Madalyn 1=Demonstrate adherence to instructed precautions during ADL tasks. 2=Patient will verbalize/demonstrate understanding of assistive devices/ modifications for ADL. 3=Patient will improve strength/tolerance for activity to enable patient to perform ADL's. OT Education/Plan Problem List/Assessment Pt to benefit from skilled OT intervention for ADL training, transfers, ROM/ strengthening, and safety education to maximize level of independence and allow safe discharge. Discharge Recommendations Plan/Recommendations: Continue POC Treatment Plan/Plan of Care Patient would benefit from OT for education, treatment and training to promote independence in ADL's, mobility, safety and/or upper extremity function for ADL' s. Plan of Care: ADL Retraining, Functional Mobility, Group Exercise/Act as Ind, Orthotic Fitting/Training, UE Funct Exercise/Act, UE Neuromus Re-Ed/Coord Treatment Duration: Aug 05, 2016 Visits Per Week: 10-11 Minutes/Day (M-F): 60-90 Minutes/Day (Sat/Bryant): PRN Agreement: Yes Rehab Potential: Fair Time/GCodes Start Time: 10:45 Stop Time: 11:15 Total Time Billed (hr/min): 30 Billed Treatment Time 1 visit-FA 2 (30 min) TULIO BERGMAN Aug 05, 2016 13:17
--- NOTE | 2016-08-05 13:18 | Speech Therapy Daily Note ---
Speech Daily Progress Note Subjective The patient was seated upright in wheelchair upon entrance. The patient greeted the clinician appropriately and agreed to participate in the dysphagia treatment session. The patient is excited for his family to visit in two days from [place]. Objective Dysphagia Exercises: The patient continues to demonstrate high accuracy on this date, displaying 90% with laryngeal, base of tongue, and pharyngeal strengthening exercises. Mild clinician verbal prompting was provided throughout the session. The Shaker exercise was deferred as the patient was sitting upright for session. The patient reported intermittent practice of exercises over the weekend throughout his spare time. Assessment Assessment Current Status: Good Progress Treatment Plan Continue Plan of Care Communication Comprehension: 6 Expression: 5 Social Cognition Social Interaction: 6 Problem Solvin Memory: 5 Speech Short Term Goals Short Term Goals Short Term Goals 1. The patient will demonstrate oral motor exercises with 90% accuracy, independently. 2. The patient will demonstrate 90% intelligible with functional phrases, independently. 3. The patient will demonstrate dysphagia exercises with 90% accuracy, independently. Time Frame-STG: Two Weeks Speech Master In [place]cery Goals Master In [place] Goals 1. The patient will demonstrate improved expressive communication for increased safety and function with ADL's. 2. The patient will tolerate the least restrictive diet without signs/symptoms of aspiration or laryngeal penetration. Progressing. (07/19/16) Time Frame: Four Weeks Comprehension: 6 Expression: 5 Social Interaction: 5 Problem Solvin Memory: 5 Speech-Plan Treatment Plan Speech Therapy Treatment Plan: Continue Plan of Care Continue skilled dysphagia therapy to focus on laryngeal, pharyngeal and base of tongue strengthening. Treatment Duration: Aug 12, 2016 # of days/week Four to five. Visits Per Week: Four to Five Minutes/Day (M-F): 30-45 Rehab Potential: Fair Safety Risks/Education Teaching Recipient: Patient Teaching Methods: Demonstration, Handout Response to Teaching: Return Demonstration, Reinforcement Needed Education Topics Provided: Dysphagia Exercises Time Speech Therapy Time In: 08:45 Speech Therapy Time Out: 09:15 Total Billed Time: 30 Billed Treatment Time JANY Devlin MARI CALLOWAY Aug 05, 2016 13:18
--- NOTE | 2016-08-05 13:32 | Physical Therapy Daily Note ---
PT Daily Note-Current Subjective Patient in wheelchair in gym waiting for PT, pleasant and cooperative. Pain Numeric Pain Scale: 0-No Pain Appearance Patient in wheelchair post tx. Mental Status Patient Orientation: Normal For Age Transfers Functional [place] Measure 0=Not Assessed/NA 4=Minimal Assistance 1=Total Assistance 5=Supervision or Setup 2=Maximal Assistance 6=Modified [place] 3=Moderate Assistance 7=Complete IndependenceIRFPAI Quality Coding Scale 6 Independent with activity with or without an assistive device 5 Patient requires set up or clean up by helper. Patient completes activity by themselves 4 Supervision or touching assist (CGA). [place] provide cues , steadying assist 3 The helper provides less than half the effort to complete the activity 2 The helper provides more than half the effort to complete the activity 1 Dependent. The helper does all the effort to complete an activity 7 Patient refused to complete or attempt activity 9 The patient did not perform the activity before the current illness or injury 88 Not attempted due to Medical conditions or safety concerns Transfers (B, C, W/C) (FIM): 5 Scootin Rollin Supine to/from Sit: 5 Sit to/from Stand: 5 Bed to/from Chair: 5 close supervision with stand pivot, can perform sit <-> supine with SBA now but does need some cues Exercises Standing: Sit to Stand Standing Reps: 10 LAQ left side for 5 min Treatments functional strengthening transfer training, patient practiced supine to sit and sit to supine x5 each side and cues for positioning Assessment Current Status: Fair Progress improve bed mobility PT Short Term Goals Short Term Goals Time Frame: Jul 22, 2016 Gait (FIM): 2 Gait Distance Comment: 70' Gait Level of Assist: 5 Gait Assistive Device: Cane Large Base Quad Wheelchair Distance: 50' PT Sales And Marketing Administrator Goals Senior Living Goals PT Sales And Marketing Administrator Goals Time Frame: Aug 05, 2016 Transfers (B,C,W/C) (FIM): 6 Sit to Lying (QC): 6 Lying-Sitting on Side/Bed(QC): 6 Sit to Stand (QC): 6 Rollin Roll Left to Right (QC): 6 Chair/Fyi-yp-Wdbrx Xfer(QC): 6 Car Transfer (QC): 4 Gait (FIM): 6 Distance: 150' Walk 10 feet (QC): 6 Walk 10ft-Uneven Surface(QC): 6 Walk 50ft with 2 Turns (QC): 6 Walk 150 ft (QC): 6 Gait Assistive Device: Cane Large Base Quad Stairs (FIM): 2 # of Steps: 4 1 Step (curb) (QC): 4 4 Steps (QC): 4 12 Steps (QC): 88 Stairs Level Of Assist: 5 Picking up an Object (QC): 5 PT Plan Problem List Problem List: Activity Tolerance, Functional Strength, Safety, Balance, Gait, Transfer, Bed Mobility Treatment/Plan Treatment Plan: Continue Plan of Care Treatment Plan: Bed Mobility, Education, Functional Activity Madalyn, Functional Strength, Group Therapy, Gait, Safety, Therapeutic Exercise, Transfers Treatment Duration: Aug 05, 2016 Visits Per Week: 10-11 Minutes/Day (M-F): 60-90 Minutes/Day (Sat/Bryant): 15-30 Safety Risks/Education Patient Education: Transfer Techniques, Correct Positioning, Safety Issues Teaching Recipient: Patient Teaching Methods: Demonstration, Discussion Response to Teaching: Reinforcement Needed Time/GCodes Time In: 1300 Time Out: 1330 Total Billed Treatment Time: 30 Total Billed Treatment 1 visit EX 10 min FA 20 min ADONAY MULLEN PT Aug 05, 2016 13:32
[2016-08-05] MEDS: ALFUZOSIN HCL 10 MG TAB (UROXATRAL) PO SCH (17:13)
[2016-08-05] MEDS: warFARin 5 MG (COUMADIN) TAB PO SCH (17:13)
[2016-08-05 17:59] VITALS: BP 144/81
[2016-08-05] MEDS: ALPRAZolam 0.5 MG (XANAX) TAB PO SCH (20:10)
[2016-08-05] MEDS: ATORVASTATIN 40 MG (LIPITOR) TABLET PO SCH (20:11)
[2016-08-05] MEDS: MELATONIN 3 MG TABLET PO SCH (20:12)
[2016-08-06] MEDS: ACETAMINOPHEN 500 MG TAB (TYLENOL) PO PRN ×2 (04:52→21:10)
[2016-08-06 05:20] VITALS: BP 129/77
[2016-08-06 05:54] LABS: BASOPHILS % (AUTO) 0 % (0-10); EOSINOPHILS # (AUTO) 0.1 10^3/uL (0.0-0.3); EOSINOPHILS % (AUTO) 5 % (0-10); LYMPHOCYTES # (AUTO) 0.5 X 10^3 (1.0-4.0); LYMPHOCYTES % (AUTO) 21 % (12-44); MEAN CORPUSCULAR HEMOGLOBIN 26 PG (25-34); MEAN CORPUSCULAR HGB CONC 33 G/DL (32-36); MEAN CORPUSCULAR VOLUME 81 FL (80-99); MEAN PLATELET VOLUME 10.8 FL (7.4-10.4); MONOCYTES # (AUTO) 0.4 X 10^3 (0.0-1.0); MONOCYTES % (AUTO) 14 % (0-12); NEUTROPHILS # (AUTO) 1.5 X 10^3 (1.8-7.8); NEUTROPHILS % (AUTO) 60 % (42-75); PLATELET COUNT 94 10^3/uL (130-400); RED BLOOD COUNT 4.23 10^6/uL (4.35-5.85); RED CELL DISTRIBUTION WIDTH 17.6 % (10.0-14.5); RETICULOCYTE % 0.46 % (0.50-2.40); WHITE BLOOD COUNT 2.5 10^3/uL (4.3-11.0)
[2016-08-06 06:20] LABS: INR 2.6 (0.8-1.4); PROTHROMBIN TIME PATIENT 27.8 SEC (12.2-14.7)
[2016-08-06 06:22] LABS: ALBUMIN 3.7 G/DL (3.2-4.5); BILIRUBIN,TOTAL 0.3 MG/DL (0.1-1.0); CALCIUM 9.5 MG/DL (8.5-10.1); CREATININE SERUM 1.32 MG/DL (0.60-1.30); POTASSIUM 3.8 MMOL/L (3.6-5.0); TOTAL PROTEIN 6.5 G/DL (6.4-8.2)
[2016-08-06 06:44] LABS: THYROID STIMULATING HORMONE 0.75 UIU/ML (0.35-4.94)
[2016-08-06 07:22] LABS: ANISOCYTOSIS SLIGHT; BAND NEUTROPHILS 0 %; BASOPHILS % (MANUAL) 1 %; EOSINOPHILS % (MANUAL) 7 %; HYPOCHROMASIA SLIGHT; LYMPHOCYTES % (MANUAL) 24 %; MICROCYTOSIS SLIGHT; NEUTROPHILS % (MANUAL) 50 %
--- NOTE | 2016-08-06 08:10 | Occupational Ther Daily Note ---
OT Current Status-Daily Note Subjective Pt alert, sitting in w/c eating breakfast in [facility] area with another pt. Mental Status/Objective Patient Orientation: Person, Place, Time, Situation Functional [place] Measure 0=Not Assessed/NA 4=Minimal Assistance 1=Total Assistance 5=Supervision or Setup 2=Maximal Assistance 6=Modified [place] 3=Moderate Assistance 7=Complete [place] ADL-Treatment Functional [place] Measure 0=Not Assessed/NA 4=Minimal Assistance 1=Total Assistance 5=Supervision or Setup 2=Maximal Assistance 6=Modified [place] 3=Moderate Assistance 7=Complete IndependenceIRFPAI Quality Coding Scale 6 Independent with activity with or without an assistive device 5 Patient requires set up or clean up by helper. Patient completes activity by themselves 4 Supervision or touching assist (CGA). [place] provide cues , steadying assist 3 The helper provides less than half the effort to complete the activity 2 The helper provides more than half the effort to complete the activity 1 Dependent. The helper does all the effort to complete an activity 7 Patient refused to complete or attempt activity 9 The patient did not perform the activity before the current illness or injury 88 Not attempted due to Medical conditions or safety concerns Toileting (FIM): 4 (Pt appears weaker today with decreased balance. Pt able to complete hygiene for toileting then required CGA when manipulating pants over hips.) Toilet/Commode Transfer (FIM): 4 (Using grabbars and BSC, pt is able to complete transfer from w/c to toilet then back with CGA.) Other Treatment Pt stated that he was sore and tired from waking up early due to muscle cramps early this morning. Stated that he had asked for tylenol which nrsg administered. Pt was able to maneuver w/c to therapy gym and completed arm bike. Completed arm bike 10 min at 3 babin resistance with l hand wrapped to handle. Pt was able to demonstrate good scapular movement and bicep/tricep movement during arm bike without compensatory movements. Pt took 3 breaks and was able to move arm bike with L UE using min A of R UE. After therapy, pt sitting in w/c in room with moist hot pack on L hand to decrease swelling and pain and increase ROM. Call light/phone in reach. All needs met in room. OT Short Term Goals Short Term Goals Time Frame: Jul 22, 2016 Bathing(FIM): 4 Upper Body Dressing(FIM): 4 Lower Body Dressing(FIM): 3 Toileting(FIM): 4 Toilet/Commode Transfer(FIM): 4 Shower Transfer(FIM): 4 (CGA) Additional Short Term Goals: 1-Demonstrate ADL Tasks, 2-Verbalize Understanding , 3-ImproveStrength/Madalyn 1=Demonstrate adherence to instructed precautions during ADL tasks. 2=Patient will verbalize/demonstrate understanding of assistive devices/ modifications for ADL. 3=Patient will improve strength/tolerance for activity to enable patient to perform ADL's. OT Prison Goals Prison Goals Time Frame: Aug 05, 2016 Eating (FIM): 6 Eating (QC): 6 Groomin Oral Hygiene (QC): 6 Bathing(FIM): 4 Shower/Bathe Self (QC): 4 Upper Body Dressing(FIM): 6 Upper Body Dressing (QC): 6 Lower Body Dressing(FIM): 5 Lower Body Dressing (QC): 5 On/Off Footwear (QC): 4 Toileting Hygiene (QC): 5 Toilet/Commode Transfer(FIM): 5 Toilet/Commode Transfer (QC): 5 Shower Transfer(FIM): 5 Comprehension(FIM): 6 Expression (FIM): 5 Social Interaction(FIM): 5 Problem Solving(FIM): 5 Memory(FIM): 5 Additional Goals: 1-Demonstrate ADL Tasks, 2-Verbalize Understanding, 3- ImproveStrength/Madalyn 1=Demonstrate adherence to instructed precautions during ADL tasks. 2=Patient will verbalize/demonstrate understanding of assistive devices/ modifications for ADL. 3=Patient will improve strength/tolerance for activity to enable patient to perform ADL's. OT Education/Plan Problem List/Assessment Pt to benefit from skilled OT intervention for ADL training, transfers, ROM/ strengthening, and safety education to maximize level of independence and allow safe discharge. Discharge Recommendations Plan/Recommendations: Continue POC Treatment Plan/Plan of Care Patient would benefit from OT for education, treatment and training to promote independence in ADL's, mobility, safety and/or upper extremity function for ADL' s. Plan of Care: ADL Retraining, Functional Mobility, Group Exercise/Act as Ind, Orthotic Fitting/Training, UE Funct Exercise/Act, UE Neuromus Re-Ed/Coord Treatment Duration: Aug 05, 2016 Visits Per Week: 10-11 Minutes/Day (M-F): 60-90 Minutes/Day (Sat/Bryant): PRN Agreement: Yes Rehab Potential: Fair Time/GCodes Start Time: 07:05 Stop Time: 08:00 Total Time Billed (hr/min): 55 Billed Treatment Time 1 visit-ADL 2 (30 min) EX 2 (25 min) TULIO BERGMAN Aug 06, 2016 08:10
[2016-08-06] MEDS: MAGNESIUM OXIDE (MAG-OX)400 MG TAB PO SCH (08:16)
[2016-08-06] MEDS: CARVEDILOL 6.25 MG (COREG) TAB PO SCH ×2 (08:16→21:10)
[2016-08-06] MEDS: GABAPENTIN 300 MG (NEURONTIN) CAP PO SCH ×3 (08:16→21:10)
[2016-08-06] MEDS: LORATADINE (CLARITIN) 10 MG TAB PO SCH (08:16)
[2016-08-06] MEDS: LACTOBACILLUS Acidoph/Bulgar (LACTINEX/FLORANEX) TAB PO SCH ×2 (08:16→21:10)
[2016-08-06] MEDS: FAMOTIDINE 20 MG (PEPCID) TABLET PO SCH (08:16)
[2016-08-06] MEDS: CLOPIDOGREL 75 MG (PLAVIX) TABLET PO SCH (08:16)
[2016-08-06] MEDS: OMEGA 3 (FISH OIL) 1000 MG CAP PO SCH (08:16)
[2016-08-06] MEDS: FLUTICASONE NASAL SPRAY (FLONASE) 16 GM BTL NS SCH (08:21)
[2016-08-06] MEDS: DICLOFENAC 1% GEL 100 GM (VOLTAREN) TUBE TOP SCH ×4 (08:21→21:10)
--- NOTE | 2016-08-06 08:49 | Progress Note (SOAP) ---
Subjective Subjective/Events-last exam patient having muscle spasms today . Hematology checking CBC. Objective Exam Vital Signs Date Time Temp Pulse Resp B/P Pulse Ox O2 Delivery O2 Flow Rate FiO2 08/06/16 05:20 98.0 81 16 129/77 96 Room Air 08/05/16 21:00 Room Air 08/05/16 17:59 96.8 70 16 144/81 98 I & O 08/06/16 07:00 Intake Total 1750 ml Output Total 3050 ml Balance -1300 ml Capillary Refill : General Appearance: No Apparent Distress Thin Results Lab Laboratory Tests 08/06/16 05:25: Absolute Reticulocyte Count 20L, Alanine Aminotransferase (ALT/SGPT) 11, Albumin 3.7, Alkaline Phosphatase 71, Anion Gap 11, Anisocytosis SLIGHT, Aspartate Amino Transf (AST/SGOT) 13, BUN/Creatinine Ratio 13, Band Neutrophils 0, Basophils # (Auto) 0.0, Basophils % (Manual) 1, Basophils (%) (Auto) 0, Blood Urea Nitrogen 17, Calcium Level 9.5, Carbon Dioxide Level 25, Chloride Level 101, Creatinine 1.32H, D-Dimer 0.47, Elliptocytes SLIGHT, Eosinophils # ( Auto) 0.1, Eosinophils % (Manual) 7, Eosinophils (%) (Auto) 5, Estimat Glomerular Filtration Rate 55, Fibrinogen 323, Glucose Level 96, Hematocrit 34L , Hemoglobin 11.1L, Hypochromasia SLIGHT, INR Comment 2.6H, Lactate Dehydrogenase 130, Lymphocytes # (Auto) 0.5L, Lymphocytes % (Manual) 24, Lymphocytes (%) (Auto) 21, Mean Corpuscular Hemoglobin 26, Mean Corpuscular Hemoglobin Concent 33, Mean Corpuscular Volume 81, Mean Platelet Volume 10.8H, Microcytosis SLIGHT, Monocytes # (Auto) 0.4, Monocytes % (Manual) 18, Monocytes (%) (Auto) 14H, Neutrophils # (Auto) 1.5L, Neutrophils % (Manual) 50, Neutrophils (%) (Auto) 60, Percent Reticulocyte Count 0.46L, Platelet Count 94L , Potassium Level 3.8, Prothrombin Time 27.8H, Red Blood Count 4.23L, Red Cell Distribution Width 17.6H, Sodium Level 137, Thyroid Stimulating Hormone (TSH) 0.75, Total Bilirubin 0.3, Total Protein 6.5, White Blood Count 2.5L Assessment/Plan Assessment/Plan Assess & Plan/Chief Complaint . . weakness. Previous stroke. Sepsis. UTI. Hyponatremia. History of LV thrombus. Acute kidney injury. . 07/17/16 weakness. Sepsis history. Hyponatremia. CVA on left. Patient feeling better todayarea . 06/2616. Weakness. Confusion this morning. Trouble swallowing this morning blood tests CAT scan negative. To give some IV fluids. . 07/19/16. Weakness less. Confusion better. CAT scan of the head negative. Previous stroke. Sepsis. UTI. Hyponatremia. . 07/22/16. Weakness less. More alert. No confusion. Previous stroke on left side. Left knee bothering him.. . Weakness. Previous stroke. Sepsis. Hyponatremia. Patient doing much better.. . 07/24/16. Patient states he is doing better. Patient positive area Patient has weakness of previous stroke. Tablet feelings about this patient's. . 07/25/16. Weakness. Previous CVA. Sepsis. UTI. Hyponatremia. Patient is stronger and improving and feeling positive about himself. . 07/26/16. Weakness. Previous CVA. Sepsis. UTI. Hyponatremia. Patient had a good workup with physical therapy and occupational therapy yesterday.. Patient feels he is getting stronger. . 07/29/16. Weakness is improving. Previous stroke. Sepsis history. UTI. Hyponatremia history patient had trouble getting out of bed and getting exercises with this. Patient has headache this morning. . 07/30/16. Weakness. Previous stroke. Sepsis. UTI. Hyponatremia resolved. Patient doing better and improving. . 07/31/16 . . Debility. Previous stroke. UTI. Hyponatremia. Patient having tarry loose stools. . 08/01/16. Leukopenia. Thrombocytopenia. Patient having muscle spasms in weak side. Weakness. Previous stroke. Sepsis. UTI. Hyponatremia. . 04/01/17 leukopenia. Thrombocytopenia. Previous stroke. Sepsis. Hyponatremia. Patient doing better with physical therapy. Platelet count went up to 97,000. White blood cell count 2500 . . 08/05/16. Weakness. Previous stroke. Leukopenia. Thrombocytopenia consult with hematology. Sepsis. UTI. Hyponatremia. . 08/06/16. Weakness area Leukopenia. Thrombocytopenia. Being evaluated by hematology Diagnosis/Problems: Clinical Quality Measures DVT/VTE Risk/Contraindication: Risk Factor Score Per Nursin RFS Level Per Nursing on Admit: 4+=Very High VAIBHAV ZAIDI DO Aug 06, 2016 08:49
[2016-08-06] MEDS: POLYETHYLENE GLYCOL 17 GM (MIRALAX) PACK PO SCH (09:00)
[2016-08-06] MEDS: SACUBITRIL/VALSARTAN 24/26 MG (ENTRESTO) TABLET PO SCH ×2 (09:00→21:14)
--- NOTE | 2016-08-06 09:43 | Physical Therapy Daily Note ---
PT Daily Note-Current Subjective Patient in wheelchair in gym waiting on PT. Pleasant and motivated. No complaints of pain but states he is very tired because he was up at 4:00AM with spasms in his left leg and arm. Appearance Patient in wheelchair post tx in his room. Mental Status Patient Orientation: Normal For Age Transfers Functional [place] Measure 0=Not Assessed/NA 4=Minimal Assistance 1=Total Assistance 5=Supervision or Setup 2=Maximal Assistance 6=Modified [place] 3=Moderate Assistance 7=Complete IndependenceIRFPAI Quality Coding Scale 6 Independent with activity with or without an assistive device 5 Patient requires set up or clean up by helper. Patient completes activity by themselves 4 Supervision or touching assist (CGA). [place] provide cues , steadying assist 3 The helper provides less than half the effort to complete the activity 2 The helper provides more than half the effort to complete the activity 1 Dependent. The helper does all the effort to complete an activity 7 Patient refused to complete or attempt activity 9 The patient did not perform the activity before the current illness or injury 88 Not attempted due to Medical conditions or safety concerns Transfers (B, C, W/C) (FIM): 4 Sit to/from Stand: 4 Bed to/from Chair: 4 CGA with transfers, always uses hands when standing or sitting Gait Training Gait (FIM): 2 Distance: 75'x3 Gait Level of Assist: 4 Gait Persons Needed: 1 Gait Assistive Device: Cane Large Base Quad Patient was tired today and was not able to ambulate as far. Slow ambulation, left AFO. Exercises NuStep Minutes: 15 NuStep Workload: 5 Treatments transfers, ambulation, functional strengthening Assessment Current Status: Fair Progress Patient very fatigued today but still motivated. PT Short Term Goals Short Term Goals Time Frame: Jul 22, 2016 Gait (FIM): 2 Gait Distance Comment: 70' Gait Level of Assist: 5 Gait Assistive Device: Cane Large Base Quad Wheelchair Distance: 50' PT Detention Goals History Teacher Goals PT History Teacher Goals Time Frame: Aug 05, 2016 Transfers (B,C,W/C) (FIM): 6 Sit to Lying (QC): 6 Lying-Sitting on Side/Bed(QC): 6 Sit to Stand (QC): 6 Rollin Roll Left to Right (QC): 6 Chair/Vib-do-Nitbn Xfer(QC): 6 Car Transfer (QC): 4 Gait (FIM): 6 Distance: 150' Walk 10 feet (QC): 6 Walk 10ft-Uneven Surface(QC): 6 Walk 50ft with 2 Turns (QC): 6 Walk 150 ft (QC): 6 Gait Assistive Device: Cane Large Base Quad Stairs (FIM): 2 # of Steps: 4 1 Step (curb) (QC): 4 4 Steps (QC): 4 12 Steps (QC): 88 Stairs Level Of Assist: 5 Picking up an Object (QC): 5 PT Plan Problem List Problem List: Activity Tolerance, Functional Strength, Safety, Balance, Gait, Transfer, Bed Mobility, ROM Treatment/Plan Treatment Plan: Continue Plan of Care Treatment Plan: Bed Mobility, Education, Functional Activity Madalyn, Functional Strength, Group Therapy, Gait, Safety, Therapeutic Exercise, Transfers Treatment Duration: Aug 05, 2016 Visits Per Week: 10-11 Minutes/Day (M-F): 60-90 Minutes/Day (Sat/Bryant): 15-30 Safety Risks/Education Patient Education: Gait Training, Transfer Techniques, Safety Issues Teaching Recipient: Patient Teaching Methods: Demonstration, Discussion Response to Teaching: Reinforcement Needed Time/GCodes Time In: 900 Time Out: 945 Total Billed Treatment Time: 45 Total Billed Treatment 1 visit EX 15 min GT 30 min ADONAY MULLEN PT Aug 06, 2016 09:43
--- NOTE | 2016-08-06 10:01 | Speech Therapy Daily Note ---
Speech Daily Progress Note Subjective The patient was seated upright in wheelchair upon entrance. The patient greeted the clinician appropriately and agreed to participate in the dysphagia treatment session. The patient reported he was experiencing a higher level of fatigue on this date due to muscle cramping throughout the night (reduced sleep) . Objective Dysphagia Exercises: The patient continues to demonstrate high accuracy with exercises, displaying 90% with laryngeal, base of tongue, and pharyngeal strengthening exercises. Mild clinician verbal prompting was provided throughout the session. The Shaker exercise was deferred as the patient was sitting upright for session. The patient agreed to complete Shaker exercise once he is returned to his bed post therapy. Assessment Assessment Current Status: Good Progress Treatment Plan Continue Plan of Care Communication Comprehension: 6 Expression: 5 Social Cognition Social Interaction: 6 Problem Solvin Memory: 5 Speech Short Term Goals Short Term Goals Short Term Goals 1. The patient will demonstrate oral motor exercises with 90% accuracy, independently. 2. The patient will demonstrate 90% intelligible with functional phrases, independently. 3. The patient will demonstrate dysphagia exercises with 90% accuracy, independently. Time Frame-STG: Two Weeks Speech Occupational Health Technician Goals Occupational Health Technician Goals 1. The patient will demonstrate improved expressive communication for increased safety and function with ADL's. 2. The patient will tolerate the least restrictive diet without signs/symptoms of aspiration or laryngeal penetration. Progressing. (07/19/16) Time Frame: Four Weeks Comprehension: 6 Expression: 5 Social Interaction: 5 Problem Solvin Memory: 5 Speech-Plan Treatment Plan Speech Therapy Treatment Plan: Continue Plan of Care Continue skilled dysphagia therapy to strengthen laryngeal, pharyngeal, and base of tongue musculature. Treatment Duration: Aug 12, 2016 # of days/week Four to five. Visits Per Week: Four to Five Minutes/Day (M-F): 30-45 Rehab Potential: Fair Safety Risks/Education Teaching Recipient: Patient Teaching Methods: Demonstration, Handout, Discussion Response to Teaching: Return Demonstration, Reinforcement Needed Education Topics Provided: Dysphagia Exercises Time Speech Therapy Time In: 08:15 Speech Therapy Time Out: 08:45 Total Billed Time: 30 Billed Treatment Time JANY Devlin ELIZABETH Aug 06, 2016 10:01
--- NOTE | 2016-08-06 13:58 | PM & R (SOAP) Progress Note ---
Subjective Subjective/Events-last exam Patient was seen in Gym this AM Had some spasms last night but patient doesnt tolerate muscle relaxants Objective Exam Last Set of Vital Signs Vital Signs Date Time Temp Pulse Resp B/P Pulse Ox O2 Delivery O2 Flow Rate FiO2 08/06/16 08:11 Room Air 08/06/16 05:20 98.0 81 16 129/77 96 Capillary Refill : I&O Intake and Output 08/06/16 00:00 Intake Total 2000 ml Output Total 3200 ml Balance -1200 ml Intake Oral 2000 ml Output Urine Total 3200 ml # Bowel Movements 1 General: Alert, Oriented X3, Cooperative, No Acute Distress HEENT: Atraumatic, PERRLA, EOMI, Mucous Memb Moist/[place] Neck: Supple, No JVD Lungs: Clear to Auscultation Heart: Regular Rate Abdomen: Normal Bowel Sounds, Soft, No Tenderness Extremities: No Edema Neuro: Other (Doing better with improved strength and speech Very alert Self propels w/c on unit) Results Lab Laboratory Tests 08/04/16 05:05: Albumin 3.5, Anion Gap 11, BUN/Creatinine Ratio 15, Basophils # (Auto) 0.0, Basophils (%) (Auto) 0, Blood Urea Nitrogen 21H, Calcium Level 9.2, Carbon Dioxide Level 22, Chloride Level 104, Creatinine 1.42H, Eosinophils # (Auto) 0.2 , Eosinophils (%) (Auto) 6, Estimat Glomerular Filtration Rate 51, Glucose Level 94, Hematocrit 31L, Hemoglobin 10.3L, INR Comment 2.8H, Lymphocytes # ( Auto) 0.7L, Lymphocytes (%) (Auto) 27, Mean Corpuscular Hemoglobin 27, Mean Corpuscular Hemoglobin Concent 33, Mean Corpuscular Volume 81, Mean Platelet Volume 10.8H, Monocytes # (Auto) 0.4, Monocytes (%) (Auto) 15H, Neutrophils # ( Auto) 1.3L, Neutrophils (%) (Auto) 51, Phosphorus Level 4.1, Platelet Count 92L , Potassium Level 3.8, Prothrombin Time 29.3H, Red Blood Count 3.88L, Red Cell Distribution Width 17.5H, Sodium Level 137, White Blood Count 2.5L 08/05/16 05:45: Basophils # (Auto) 0.0, Basophils (%) (Auto) 1, Eosinophils # (Auto) 0.1, Eosinophils (%) (Auto) 5, Hematocrit 34L, Hemoglobin 11.2L, INR Comment 2.8H, Lymphocytes # (Auto) 0.7L, Lymphocytes (%) (Auto) 29, Mean Corpuscular Hemoglobin 26, Mean Corpuscular Hemoglobin Concent 33, Mean Corpuscular Volume 81, Mean Platelet Volume 10.8H, Monocytes # (Auto) 0.3, Monocytes (%) (Auto) 12 , Neutrophils # (Auto) 1.2L, Neutrophils (%) (Auto) 53, Platelet Count 82L, Prothrombin Time 29.3H, Red Blood Count 4.24L, Red Cell Distribution Width 17.5H , White Blood Count 2.3L 08/06/16 05:25: Albumin 3.7, Anion Gap 11, BUN/Creatinine Ratio 13, Basophils # (Auto) 0.0, Basophils (%) (Auto) 0, Blood Urea Nitrogen 17, Calcium Level 9.5, Carbon Dioxide Level 25, Chloride Level 101, Creatinine 1.32H, Eosinophils # (Auto) 0.1 , Eosinophils (%) (Auto) 5, Estimat Glomerular Filtration Rate 55, Glucose Level 96, Hematocrit 34L, Hemoglobin 11.1L, INR Comment 2.6H, Lymphocytes # ( Auto) 0.5L, Lymphocytes (%) (Auto) 21, Mean Corpuscular Hemoglobin 26, Mean Corpuscular Hemoglobin Concent 33, Mean Corpuscular Volume 81, Mean Platelet Volume 10.8H, Monocytes # (Auto) 0.4, Monocytes (%) (Auto) 14H, Neutrophils # ( Auto) 1.5L, Neutrophils (%) (Auto) 60, Platelet Count 94L, Potassium Level 3.8, Prothrombin Time 27.8H, Red Blood Count 4.23L, Red Cell Distribution Width 17.6H , Sodium Level 137, White Blood Count 2.5L, Absolute Reticulocyte Count 20L, Alanine Aminotransferase (ALT/SGPT) 11, Alkaline Phosphatase 71, Anisocytosis SLIGHT, Aspartate Amino Transf (AST/SGOT) 13, Band Neutrophils 0, Basophils % ( Manual) 1, D-Dimer 0.47, Elliptocytes SLIGHT, Eosinophils % (Manual) 7, Fibrinogen 323, Hypochromasia SLIGHT, Lactate Dehydrogenase 130, Lymphocytes % ( Manual) 24, Microcytosis SLIGHT, Monocytes % (Manual) 18, Neutrophils % (Manual ) 50, Percent Reticulocyte Count 0.46L, Thyroid Stimulating Hormone (TSH) 0.75, Total Bilirubin 0.3, Total Protein 6.5 Assessment/Plan Assessment General debil secondary to UTI with sepsis treated OSH Change in mental status w/u in progress-will d/c baclofen-and now improved s/p 1 lter of IVFS and with Baclfen d/cd 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 Discussed case with SW-Discharge set tentatively for Friday to [facility] apartment [facility] that patients has arranged GRAEME GRESHAM MD Aug 06, 2016 13:58
--- NOTE | 2016-08-06 14:33 | Therapy Group Daily Note ---
Therapy Daily Group Note Patient Education Topic Other List Below Other/Notes Each patient on rehab had group therapy this afternoon in the common area on the rehab floor. Each patient was either wheeled or ambulated to the common area and seated in a line. Then each patient had to introduce themselves and state where they were from and recall a specific memory from their past. Then, they were educated on specifics about rehab like minutes required and each disciplines role. Each patient was then educated about handwashing and they each had to wash their hands at the sink (standing if they could) in preparation for the next activity. Finally they had to decorate and assemble a [employer] project, an activity that required digital manipulation, UE ROM, problem solving, and critical thinking. Each patient was then transported back to their room by wheelchair or ambulation and back to bed or chair with nurse call, phone, and tray. Start Time: 13:00 Stop Time: 14:10 Total Billed Treatment Time: 70 Total Billed Treatment 1 visit GRP 70 min ADONAY MULLEN PT Aug 06, 2016 14:33
[2016-08-06 18:00] VITALS: BP 114/71
[2016-08-06] MEDS: ALFUZOSIN HCL 10 MG TAB (UROXATRAL) PO SCH (18:23)
[2016-08-06] MEDS: warFARin 5 MG (COUMADIN) TAB PO SCH (18:23)
[2016-08-06] MEDS: MELATONIN 3 MG TABLET PO SCH (21:00)
[2016-08-06] MEDS: ALPRAZolam 0.5 MG (XANAX) TAB PO SCH (21:10)
[2016-08-06] MEDS: ATORVASTATIN 40 MG (LIPITOR) TABLET PO SCH (21:10)
[2016-08-07 05:38] VITALS: BP 128/73
[2016-08-07] MEDS: ACETAMINOPHEN 500 MG TAB (TYLENOL) PO PRN ×2 (07:02→20:44)
[2016-08-07 07:08] LABS: INR 2.5 (0.8-1.4)
[2016-08-07] MEDS: LACTOBACILLUS Acidoph/Bulgar (LACTINEX/FLORANEX) TAB PO SCH ×2 (08:04→20:44)
[2016-08-07] MEDS: CARVEDILOL 6.25 MG (COREG) TAB PO SCH ×2 (08:04→20:44)
[2016-08-07] MEDS: FAMOTIDINE 20 MG (PEPCID) TABLET PO SCH (08:04)
[2016-08-07] MEDS: OMEGA 3 (FISH OIL) 1000 MG CAP PO SCH (08:04)
[2016-08-07] MEDS: CLOPIDOGREL 75 MG (PLAVIX) TABLET PO SCH (08:04)
[2016-08-07] MEDS: LORATADINE (CLARITIN) 10 MG TAB PO SCH (08:04)
[2016-08-07] MEDS: GABAPENTIN 300 MG (NEURONTIN) CAP PO SCH ×3 (08:04→20:44)
[2016-08-07] MEDS: MAGNESIUM OXIDE (MAG-OX)400 MG TAB PO SCH (08:05)
[2016-08-07] MEDS: FLUTICASONE NASAL SPRAY (FLONASE) 16 GM BTL NS SCH (08:09)
[2016-08-07] MEDS: DICLOFENAC 1% GEL 100 GM (VOLTAREN) TUBE TOP SCH ×4 (08:11→20:45)
--- NOTE | 2016-08-07 08:32 | Progress Note (SOAP) ---
Subjective Subjective/Events-last exam patient feeling good today. Patient speech is improving. Patient will have the results of the CBC tomorrow with hematology Objective Exam Vital Signs Date Time Temp Pulse Resp B/P Pulse Ox O2 Delivery O2 Flow Rate FiO2 08/07/16 05:38 98.0 75 16 128/73 95 Room Air 08/06/16 18:00 97.9 74 18 114/71 99 Room Air I & O 08/07/16 07:00 Intake Total 1250 ml Output Total 800 ml Balance 450 ml Capillary Refill : General Appearance: No Apparent Distress Thin HEENT: Normal ENT Inspection Neck: Full Range of Motion Normal Inspection Respiratory: Chest Non Tender Lungs Clear Normal Breath Sounds No Accessory Muscle Use No Respiratory Distress Cardiovascular: Regular Rate, Rhythm No Murmur Gastrointestinal: non tender soft Results Lab Laboratory Tests 08/07/16 06:07: INR Comment 2.5H, Prothrombin Time 27.0H Assessment/Plan Assessment/Plan Assess & Plan/Chief Complaint . . weakness. Previous stroke. Sepsis. UTI. Hyponatremia. History of LV thrombus. Acute kidney injury. . 07/17/16 weakness. Sepsis history. Hyponatremia. CVA on left. Patient feeling better todayarea . 06/2616. Weakness. Confusion this morning. Trouble swallowing this morning blood tests CAT scan negative. To give some IV fluids. . 07/19/16. Weakness less. Confusion better. CAT scan of the head negative. Previous stroke. Sepsis. UTI. Hyponatremia. . 07/22/16. Weakness less. More alert. No confusion. Previous stroke on left side. Left knee bothering him.. . Weakness. Previous stroke. Sepsis. Hyponatremia. Patient doing much better.. . 07/24/16. Patient states he is doing better. Patient positive area Patient has weakness of previous stroke. Tablet feelings about this patient's. . 07/25/16. Weakness. Previous CVA. Sepsis. UTI. Hyponatremia. Patient is stronger and improving and feeling positive about himself. . 07/26/16. Weakness. Previous CVA. Sepsis. UTI. Hyponatremia. Patient had a good workup with physical therapy and occupational therapy yesterday.. Patient feels he is getting stronger. . 07/29/16. Weakness is improving. Previous stroke. Sepsis history. UTI. Hyponatremia history patient had trouble getting out of bed and getting exercises with this. Patient has headache this morning. . 07/30/16. Weakness. Previous stroke. Sepsis. UTI. Hyponatremia resolved. Patient doing better and improving. . 07/31/16 . . Debility. Previous stroke. UTI. Hyponatremia. Patient having tarry loose stools. . 08/01/16. Leukopenia. Thrombocytopenia. Patient having muscle spasms in weak side. Weakness. Previous stroke. Sepsis. UTI. Hyponatremia. . 04/01/17 leukopenia. Thrombocytopenia. Previous stroke. Sepsis. Hyponatremia. Patient doing better with physical therapy. Platelet count went up to 97,000. White blood cell count 2500 . . 08/05/16. Weakness. Previous stroke. Leukopenia. Thrombocytopenia consult with hematology. Sepsis. UTI. Hyponatremia. . 08/06/16. Weakness area Leukopenia. Thrombocytopenia. Being evaluated by hematology. . 08/07/16. Patient feeling good today. Weakness. Leukopenia. Thrombocytopenia. Previous stroke. Patient doing better with speech therapy physical therapy and occupational therapy Diagnosis/Problems: Clinical Quality Measures DVT/VTE Risk/Contraindication: Risk Factor Score Per Nursin RFS Level Per Nursing on Admit: 4+=Very High VAIBHAV ZAIDI DO Aug 07, 2016 08:32
[2016-08-07 08:33] LABS: RED BLOOD COUNT 4.13 10^6/uL (4.35-5.85); RED CELL DISTRIBUTION WIDTH 17.9 % (10.0-14.5); WHITE BLOOD COUNT 2.4 10^3/uL (4.3-11.0)
--- NOTE | 2016-08-07 09:06 | CONSULTATION REPORT ---
DATE OF CONSULTATION: 08/06/2016 REFERRING PHYSICIAN: Dewey Arizmendi D.O. The patient is admitted to Room 222. IMPRESSION: 1. 60-year-old male admitted to the rehabilitation unit from [facility] following treatment for a urinary tract infection/sepsis. The patient has a previous history of CVA with left hemiparesis. He was sent to the rehab unit floor because of significant deconditioning. Since his admission, he was noted to be pancytopenic and hence a hematology consultation was requested for further evaluation and recommendations. 2. Rule out vitamin B12/folate deficiency. 3. I will obtain a serum iron, TIBC and ferritin levels because of hypoproliferative anemia and chronic kidney disease, stage 3. 4. Will follow the patient in 24 to 48 hours to review the results. BRIEF HISTORY: Mr. Aguirre is a 60-year-old male who was admitted to the rehab floor because deconditioning after a hospital stay for UTI and sepsis. He has no previous records or lab work available at [facility]. Since his admission, he has been pancytopenic. PAST MEDICAL HISTORY: Significant for: 1. Hypertension, which is long-standing. 2. Coronary artery disease with [place] in the past and multiple stent placement. Also had a pacemaker placed last year. 3. In January 2016 he suffered a cerebrovascular accident with left hemiplegia/paresis. 4. Recently he was diagnosed with carotid artery disease and had a right carotid stent placement earlier this year. 5. He denied any other major problems. SOCIAL HISTORY: The patient is and lives in [place], [place]. He has 2 children, a son who is a traveling nurse and currently lives in [place] and daughter who works at [employer] and who is his power of linter operator. He has approximately 40 pack-year history of tobacco use, but quit in January 2016. He denied any alcohol or other recreational drug use. 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 Since his CVA, he has not been able to work. FAMILY HISTORY: Significant for: 1. An uncle and 5 aunts on the maternal side of family, all of whom had CVAs with the youngest person in that group at the age of 50 years. 2. No other history of DVTs or other thrombosis. 3. No malignancies in the family that the patient knows of, except his brother who had multiple myeloma related to agent orange exposure. PHYSICAL EXAMINATION: Today showed an elderly male, thin appearing, awake, and oriented, and answering questions appropriately. VITAL SIGNS: Temperature was 98, pulse rate of 81, respirations 16, blood pressure 129/77 with oxygen saturation of 96% on room air. HEENT: Normocephalic, extraocular muscles intact. Conjunctivae pink, oral mucosa moist. NECK: Supple with no JVD. No cervical, supraclavicular, or axillary lymphadenopathy palpable. CHEST EXAM: Showed left-sided pacemaker present. LUNGS: Fairly clear to auscultation without wheezes or rales. CARDIOVASCULAR EXAM: Regular in rate and rhythm. No murmurs or gallops heard. ABDOMEN: Soft, nontender, with no hepatosplenomegaly or other masses palpable. EXTREMITIES: Showed no edema. NEUROLOGICAL EXAM: Significant for left hemiparalysis with motor strength of 3-4/5. LABORATORY: I reviewed his lab work done today morning, CBC showed white count of 2.5, hemoglobin 11.1, MCV 81, RDW 17.6, platelet count of 94,000. Automated differential count showed neutrophil count of 1.5, lymphocyte count 0.5, monocytes count 0.4. Absolute reticulocyte count was low at 20,000. Chemistry panel done today show normal electrolytes. BUN was 17 and creatinine 1.32 with GFR of 55 mL per minute. Liver function studies were within normal limits. LDH level was normal at 130. TSH was normal at 0.75. Prothrombin time was 27.8 with INR of 2.6. Total fibrinogen was 323 and d-dimer was normal at 0.47. Stool for occult blood from 07/18/2016 was negative. Urinalysis from the same day was unremarkable. Thank you for allowing me to participate in this patient's care. I will follow the patient with you and make appropriate recommendations. If his pancytopenia continues without an explanation, he will need a bone marrow aspiration and biopsy for further evaluation. Job ID: [id number] Dictated Date: 08/06/2016 17:10:00 Clinical Lab Technologist Date: 08/07/2016 07:59:26/radha LUGO
--- NOTE | 2016-08-07 09:13 | Occupational Ther Daily Note ---
OT Current Status-Daily Note Subjective Pt alert, sitting in w/c at bathroom sink. Pt agreed to therapy. No c/o pain at this time. Mental Status/Objective Patient Orientation: Person, Place, Time, Situation Functional [place] Measure 0=Not Assessed/NA 4=Minimal Assistance 1=Total Assistance 5=Supervision or Setup 2=Maximal Assistance 6=Modified [place] 3=Moderate Assistance 7=Complete [place] ADL-Treatment Functional [place] Measure 0=Not Assessed/NA 4=Minimal Assistance 1=Total Assistance 5=Supervision or Setup 2=Maximal Assistance 6=Modified [place] 3=Moderate Assistance 7=Complete IndependenceIRFPAI Quality Coding Scale 6 Independent with activity with or without an assistive device 5 Patient requires set up or clean up by helper. Patient completes activity by themselves 4 Supervision or touching assist (CGA). [place] provide cues , steadying assist 3 The helper provides less than half the effort to complete the activity 2 The helper provides more than half the effort to complete the activity 1 Dependent. The helper does all the effort to complete an activity 7 Patient refused to complete or attempt activity 9 The patient did not perform the activity before the current illness or injury 88 Not attempted due to Medical conditions or safety concerns Eating (FIM): 6 (Pt uses teeth to tear packages open, is able to open twist lids. Pt uses regular utensils to feed self and cut up food with R hand.) Eating (QC): 6 (Pt uses teeth to tear packages open, is able to open twist lids. Pt uses regular utensils to feed self and cut up food with R hand.) Grooming (FIM): 6 (Pt able to cleanse dentures and complete other grooming skills sitting at sink in w/c.) Oral Hygiene (QC): 6 (Pt able to cleanse dentures at w/c level in front of sink.) Toileting Hygiene (QC): 4 (Pt is able to complete hygiene sitting on BSC then close SBA while standing to manipulate pants. Uses grabbars and BSC.) Bathing (FIM): 5 (Using tub seat with back, hand held shower, long handle sponge and grabbars pt is able to complete all bathing except when standing requires close SBA.) Bathing Location: L Arm, R Arm, L Upper Leg, R Upper Leg, L Lower Leg ( including foot), R Lower Leg (including foot), Chest, Abdomen, Buttocks, Perineal Area Shower/Bathe Self (QC): 4 (Using tub seat with back, hand held shower, long handle sponge and grabbars pt is able to complete all bathing except when standing requires close SBA.) Upper Body (FIM): 4 (Pt retrieves clothing at w/c level from closet. Pt is able to complete ladle puller shirt by self then requires assist for button up shirt.) Upper Body Dressing (QC): 3 (Pt retrieves clothing at w/c level from closet. Pt is able to complete ladle puller shirt by self then requires assist for button up shirt.) Lower Body Dressing (FIM): 4 (Pt retrieves clothing from closet at w/c level. Pt is able to complete dressing using one-handed techniques and dycem placed on R knee when crossing L over R. Pt requires assistance to don L shoe with brace. ) Lower Body Dressing (QC): 3 (Pt retrieves clothing from closet at w/c level. Pt is able to complete dressing using one-handed techniques and dycem placed on R knee when crossing L over R. Pt requires assistance to don L shoe with brace. ) On/Off Footwear (QC): 3 (Pt is able to use one handed technique to don B socks. Dons/doffs R shoe, doffs L shoe then needs assistance for donning L shoe.) Toileting (FIM): 5 (Pt is able to complete hygiene sitting on BSC then close SBA while standing to manipulate pants. Uses grabbars and BSC.) Transfers (B, C, W/C) (FIM): 4 (Pt is SBA for stand pivot transfers.) Toilet/Commode Transfer (FIM): 5 (Using grabbars and BSC, pt is SBA for stand pivot transfers.) Toilet Transfer (QC): 4 (Using grabbars and BSC, pt is SBA for stand pivot transfers.) Shower Transfer(FIM): 5 (Using grabbars and tub seat with back, pt is able to complete with SBA.) After therapy, pt sitting in w/c with nrsg present in room. All needs met in room. Call light in reach. OT Short Term Goals Short Term Goals Time Frame: Jul 22, 2016 Bathing(FIM): 4 (-08/07/16) Upper Body Dressing(FIM): 4 (-08/07/16) Lower Body Dressing(FIM): 3 (-08/07/16) Toileting(FIM): 4 (met-08/07/16) Toilet/Commode Transfer(FIM): 4 (met-08/07/16) Shower Transfer(FIM): 4 (CGA:-08/07/16) Additional Short Term Goals: 1-Demonstrate ADL Tasks, 2-Verbalize Understanding , 3-ImproveStrength/Madalyn 1=Demonstrate adherence to instructed precautions during ADL tasks. 2=Patient will verbalize/demonstrate understanding of assistive devices/ modifications for ADL. 3=Patient will improve strength/tolerance for activity to enable patient to perform ADL's. OT Independent Driver Goals [place] Goals Time Frame: Aug 05, 2016 Eating (FIM): 6 (-08/07/16) Eating (QC): 6 (met-08/07/16) Groomin (met-08/07/16) Oral Hygiene (QC): 6 (met-08/07/16) Bathing(FIM): 4 (met-08/07/16) Shower/Bathe Self (QC): 4 (met-08/07/16) Upper Body Dressing(FIM): 6 (not met) Upper Body Dressing (QC): 6 (not met) Lower Body Dressing(FIM): 5 (not met) Lower Body Dressing (QC): 5 (not met) On/Off Footwear (QC): 4 (not met) Toileting Hygiene (QC): 5 (met-08/07/16) Toilet/Commode Transfer(FIM): 5 (met-08/07/16) Toilet/Commode Transfer (QC): 5 (met-08/07/16) Shower Transfer(FIM): 5 (met-08/07/16) Comprehension(FIM): 6 (met-08/07/16) Expression (FIM): 5 (met-08/07/16) Social Interaction(FIM): 5 (met-08/07/16) Problem Solving(FIM): 5 (met-08/07/16) Memory(FIM): 5 (met-2) Additional Goals: 1-Demonstrate ADL Tasks, 2-Verbalize Understanding, 3- ImproveStrength/Madalyn 1=Demonstrate adherence to instructed precautions during ADL tasks. 2=Patient will verbalize/demonstrate understanding of assistive devices/ modifications for ADL. 3=Patient will improve strength/tolerance for activity to enable patient to perform ADL's. OT Education/Plan Problem List/Assessment Pt to benefit from skilled OT intervention for ADL training, transfers, ROM/ strengthening, and safety education to maximize level of independence and allow safe discharge. Discharge Recommendations Plan/Recommendations: Continue POC Treatment Plan/Plan of Care Patient would benefit from OT for education, treatment and training to promote independence in ADL's, mobility, safety and/or upper extremity function for ADL' s. Plan of Care: ADL Retraining, Functional Mobility, Group Exercise/Act as Ind, Orthotic Fitting/Training, UE Funct Exercise/Act, UE Neuromus Re-Ed/Coord Treatment Duration: Aug 05, 2016 Visits Per Week: 10-11 Minutes/Day (M-F): 60-90 Minutes/Day (Sat/Bryant): PRN Agreement: Yes Rehab Potential: Fair Time/GCodes Start Time: 07:00 Stop Time: 08:15 Total Time Billed (hr/min): 75 Billed Treatment Time 1 visit-ADL 5 (75 min) TULIO BERGMAN Aug 07, 2016 09:13
--- NOTE | 2016-08-07 09:46 | Physical Therapy Daily Note ---
PT Daily Note-Current Subjective Patient in wheelchair pre tx, agrees to PT. No complaints of pain, no ankle soreness. Appearance Patient in wheelchair post tx in his room. Mental Status Patient Orientation: Normal For Age Transfers Functional Mcmullen Measure 0=Not Assessed/NA 4=Minimal Assistance 1=Total Assistance 5=Supervision or Setup 2=Maximal Assistance 6=Modified Mcmullen 3=Moderate Assistance 7=Complete IndependenceIRFPAI Quality Coding Scale 6 Independent with activity with or without an assistive device 5 Patient requires set up or clean up by helper. Patient completes activity by themselves 4 Supervision or touching assist (CGA). [place] provide cues , steadying assist 3 The helper provides less than half the effort to complete the activity 2 The helper provides more than half the effort to complete the activity 1 Dependent. The helper does all the effort to complete an activity 7 Patient refused to complete or attempt activity 9 The patient did not perform the activity before the current illness or injury 88 Not attempted due to Medical conditions or safety concerns Transfers (B, C, W/C) (FIM): 5 Scootin Rollin Roll Left to Right (QC): 4 Supine to/from Sit: 5 Sit to/from Stand: 5 Sit to Lying (QC): 4 Sit to Stand (QC): 4 Chair/Xmp-yx-Mobsj Xfer(QC): 4 Bed to/from Chair: 5 Car Transfer (QC): 88 Patient now performs bed mobility and transfers with SBA, close supervision with stand pivot. Gait Training Does the Patient Walk?: Yes Gait (FIM): 4 Distance: 150' Walk 10 feet (QC): 4 Walk 50 ft with 2 Turns(QC): 4 Walk 150 ft (QC): 4 Walking 10ft/uneven surface-QC: 4 Gait Level of Assist: 4 Gait Persons Needed: 1 Gait Assistive Device: Cane Large Base Quad Patient ambulates 150' with a quad cane with CGA, including 10' over an uneven surface like carpet and 50' with at least 2 turns of 90 degrees. Wheelchair Training Does the Pt Use a Wheelchair?: Yes Wheelchair (FIM): 6 Distance: 300' Wheel 50 ft with 2 turns (QC): 6 Wheel 150 ft (QC): 6 Type of Wheelchair: Manual Stair Training Stair Training: Handrails/: 1 handrail Stairs (FIM): 4 #of Steps: 12 1 Step (curb) (QC): 4 4 Steps (QC): 4 12 Steps (QC): 4 Stairs: Pattern: Step to Level of Assist: 4 (CGA) Appropriate step pattern. Exercises Patient practiced standing on left leg for about 30 sec at a time for 5 min. NuStep Minutes: 10 NuStep Workload: 5 Treatments bed mobility and transfers, stair training, ambulation, functional strengthening Assessment Current Status: Fair Progress improving general mobility, better stairs PT Short Term Goals Short Term Goals Time Frame: Jul 22, 2016 Gait (FIM): 2 Gait Distance Comment: 70' Gait Level of Assist: 5 Gait Assistive Device: Cane Large Base Quad Wheelchair Distance: 50' PT [facility] Goals Dental Service Technician Goals PT [facility] Goals Time Frame: Aug 05, 2016 Transfers (B,C,W/C) (FIM): 6 Sit to Lying (QC): 6 Lying-Sitting on Side/Bed(QC): 6 Sit to Stand (QC): 6 Rollin (met) Roll Left to Right (QC): 6 Chair/Kux-ke-Hyslg Xfer(QC): 6 Car Transfer (QC): 4 Gait (FIM): 6 Distance: 150' Walk 10 feet (QC): 6 Walk 10ft-Uneven Surface(QC): 6 Walk 50ft with 2 Turns (QC): 6 Walk 150 ft (QC): 6 Gait Assistive Device: Cane Large Base Quad Stairs (FIM): 2 (met) # of Steps: 4 (et) 1 Step (curb) (QC): 4 (met) 4 Steps (QC): 4 (met) 12 Steps (QC): 88 (score of 4) Stairs Level Of Assist: 5 Picking up an Object (QC): 5 PT Plan Problem List Problem List: Activity Tolerance, Functional Strength, Safety, Balance, Gait, Transfer, Bed Mobility, ROM Treatment/Plan Treatment Plan: Continue Plan of Care Treatment Plan: Bed Mobility, Education, Functional Activity Madalyn, Functional Strength, Group Therapy, Gait, Safety, Therapeutic Exercise, Transfers Treatment Duration: Aug 05, 2016 Visits Per Week: 10-11 Minutes/Day (M-F): 60-90 Minutes/Day (Sat/Bryant): 15-30 Safety Risks/Education Patient Education: Gait Training, Transfer Techniques, Steps, Safety Issues Teaching Recipient: Patient Teaching Methods: Demonstration, Discussion Response to Teaching: Reinforcement Needed Time/GCodes Time In: 900 Time Out: 945 Total Billed Treatment Time: 45 Total Billed Treatment 1 visit EX 15 min FA 15 min GT 15 min ADONAY MULLEN PT Aug 07, 2016 09:46
[2016-08-07] MEDS: SACUBITRIL/VALSARTAN 24/26 MG (ENTRESTO) TABLET PO SCH ×2 (10:00→20:45)
[2016-08-07] MEDS: POLYETHYLENE GLYCOL 17 GM (MIRALAX) PACK PO SCH (10:00)
--- NOTE | 2016-08-07 11:24 | Speech Therapy Daily Note ---
Speech Daily Progress Note Subjective The patient was seated upright in wheelchair upon entrance. The patient greeted the clinician appropriately and agreed to participate in the dysphagia treatment session. Objective Dysphagia Exercises: The patient continues to demonstrate high accuracy with exercises, displaying 90% with laryngeal, base of tongue, and pharyngeal strengthening exercises. Mild clinician verbal prompting was provided throughout the session. The importance of continued therapy was discussed post discharge. Assessment Assessment Current Status: Good Progress Treatment Plan Continue Plan of Care Communication Comprehension: 6 Expression: 5 Social Cognition Social Interaction: 6 Problem Solvin Memory: 5 Speech Short Term Goals Short Term Goals Short Term Goals 1. The patient will demonstrate oral motor exercises with 90% accuracy, independently. 2. The patient will demonstrate 90% intelligible with functional phrases, independently. 3. The patient will demonstrate dysphagia exercises with 90% accuracy, independently. Time Frame-STG: Two Weeks Speech Prison Goals Prison Goals 1. The patient will demonstrate improved expressive communication for increased safety and function with ADL's. 2. The patient will tolerate the least restrictive diet without signs/symptoms of aspiration or laryngeal penetration. Progressing. (07/19/16) Time Frame: Four Weeks Comprehension: 6 (met-08/07/16) Expression: 5 (met-08/07/16) Social Interaction: 5 (met-08/07/16) Problem Solvin (met-08/07/16) Memory: 5 (met-08/07/16) Speech-Plan Treatment Plan Speech Therapy Treatment Plan: Continue Plan of Care Continue skilled dysphagia therapy to focus on laryngeal, pharyngeal, and base of tongue strengthening exercises. Treatment Duration: Aug 12, 2016 # of days/week Four to five. Visits Per Week: Four to Five Minutes/Day (M-F): 30 Rehab Potential: Fair Safety Risks/Education Teaching Recipient: Patient Teaching Methods: Demonstration, Handout, Discussion Response to Teaching: Return Demonstration Education Topics Provided: Dysphagia Exercises Time Speech Therapy Time In: 08:15 Speech Therapy Time Out: 08:45 Total Billed Time: 30 Billed Treatment Time JANY Devlin ELICHAD GASPAR Aug 07, 2016 11:24
--- NOTE | 2016-08-07 14:43 | Occ Therapy Rehab Re-Cert ---
OT Re-Certification Form Plan of Care: ADL Retraining, Functional Mobility, Group Exercise/Act as Ind, Orthotic Fitting/Training, UE Funct Exercise/Act, UE Neuromus Re-Ed/Coord This is a late entry for 08/05/16. Pt progressing toward care plan goals. Is now able to complete transfers with SBA, UE dressing with min assist, LE dressing with min assist, and grooming with modified independence at seated level. Pt to continue to benefit from skilled OT intervention for ADL training, transfers, strengthening, ROM, and safety education to maximize level of function. Continue toward previously established long-term goals. Treatment Duration: 2 weeks # of days/week 5-6 Visits Per Week: 10-11 Minutes/Day (M-F): 60-90 Minutes/Day (Sat/Bryant): PRN Agreement: Yes Rehab Potential: Fair OT Short Term Goals Short Term Goals Time Frame: Jul 22, 2016 Bathing(FIM): 4 (met-08/07/16) Upper Body Dressing(FIM): 4 (met-08/07/16) Lower Body Dressing(FIM): 3 (met-08/07/16) Toileting(FIM): 4 (met-08/07/16) Toilet/Commode Transfer(FIM): 4 (met-08/07/16) Shower Transfer(FIM): 4 (CGA:met-08/07/16) Additional Short Term Goals: 1-Demonstrate ADL Tasks, 2-Verbalize Understanding , 3-ImproveStrength/Madalyn 1=Demonstrate adherence to instructed precautions during ADL tasks. 2=Patient will verbalize/demonstrate understanding of assistive devices/ modifications for ADL. 3=Patient will improve strength/tolerance for activity to enable patient to perform ADL's. OT Paint Specialist Goals Paint Specialist Goals Time Frame: Aug 05, 2016 Eating (FIM): 6 (met-08/07/16) Grooming(FIM): 5 (met-08/07/16) Bathing(FIM): 4 (met-08/07/16) Upper Body Dressing(FIM): 6 (not met) Lower Body Dressing(FIM): 5 (not met) Toilet/Commode Transfer(FIM): 5 (met-08/07/16) Shower Transfer(FIM): 5 (met-08/07/16) Comprehension(FIM): 6 (met-08/07/16) Expression (FIM): 5 (met-08/07/16) Social Interaction(FIM): 5 (met-08/07/16) Problem Solving(FIM): 5 (met-08/07/16) Memory(FIM): 5 (met-08/07/16) Additional Goals: 1-Demonstrate ADL Tasks, 2-Verbalize Understanding, 3- ImproveStrength/Madalyn 1=Demonstrate adherence to instructed precautions during ADL tasks. 2=Patient will verbalize/demonstrate understanding of assistive devices/ modifications for ADL. 3=Patient will improve strength/tolerance for activity to enable patient to perform ADL's. RASHIDA ORTIZ OT Aug 07, 2016 14:43
--- NOTE | 2016-08-07 14:43 | Physical Therapy Rehab Re-Cert ---
PT Re-Certification Form Physical Therapy Treatment Plan: Continue Plan of Care Bed Mobility, Education, Functional Activity Madalyn, Functional Strength, Group Therapy, Gait, Safety, Therapeutic Exercise, Transfers Patient needs continued skilled PT intervention to improve bed mobility, transfers, ambulation, LE strength, endurance, and balance, to improve functional mobility and independence at home. Treatment Duration: 2 weeks # of days/week 5-6 Visits Per Week: 10-11 Minutes/Day (M-F): 60-90 Minutes/Day (Sat/Bryant): 15-30 Patient and/or Family Agrees t: Yes Rehab Potential: Fair Patient performs bed mobility and transfers with SBA (close supervision with transfers), ambulates 150' with a quad cane and left AFO with CGA, and can go up and down 12 steps using 1 handrail with CGA. PT Short Term Goals Short Term Goals Time Frame: Jul 22, 2016 Gait (FIM): 2 Gait Distance Comment: 70' Gait Level of Assist: 5 Gait Assistive Device: Cane Large Base Quad Wheelchair Distance: 300' PT Cloth Shearing Supervisor Goals Cloth Shearing Supervisor Goals PT Cloth Shearing Supervisor Goals Time Frame: Aug 05, 2016 Transfers (B,C,W/C) (FIM): 6 Gait (FIM): 6 Distance: 150' Gait Assistive Device: Cane Large Base Quad Stairs (FIM): 2 (met) # of Steps: 4 (et) Stairs Level Of Assist: 5 ADONAY MULLEN PT Aug 07, 2016 14:43
--- NOTE | 2016-08-07 15:10 | Therapy Group Daily Note ---
Therapy Daily Group Note Patient Education Topic Other List Below (Frailty syndrome and prevention) Exercises LE Seated Exercise, UE Exercise Other/Notes Pt maneuvered w/c to ARU commons area for group. Pt actively participated in OT /PT group. Group consisted of introductions (name, place living, place you'd rather be instead of here), socialization, education on Frailty Syndrome and prevention, UE/LE seated exercises with resistance and other benefits of exercise. Pt contributed to discussions appropriately and demonstrated knowledge of topic by answering verbal questions. Pt was able to complete UE/ LE seated exercises with R side and L LE. After therapy, pt sitting in w/c maneuvering around ARU. All needs met. Start Time: 13:00 Stop Time: 14:10 Total Billed Treatment Time: 70 Total Billed Treatment 1-GRP TULIO BERGMAN Aug 07, 2016 15:10
[2016-08-07] MEDS: ALFUZOSIN HCL 10 MG TAB (UROXATRAL) PO SCH (17:14)
[2016-08-07] MEDS: warFARin 5 MG (COUMADIN) TAB PO SCH (17:14)
[2016-08-07 17:30] VITALS: BP 122/75
[2016-08-07] MEDS: ATORVASTATIN 40 MG (LIPITOR) TABLET PO SCH (20:44)
[2016-08-07] MEDS: ALPRAZolam 0.5 MG (XANAX) TAB PO SCH (20:45)
[2016-08-07] MEDS: MELATONIN 3 MG TABLET PO SCH (20:45)
[2016-08-08] MEDS: ACETAMINOPHEN 500 MG TAB (TYLENOL) PO PRN ×2 (04:20→20:11)
[2016-08-08 05:31] VITALS: BP 118/73
[2016-08-08 05:53] LABS: RED BLOOD COUNT 4.1 10^6/uL (4.35-5.85); RED CELL DISTRIBUTION WIDTH 17.7 % (10.0-14.5); WHITE BLOOD COUNT 1.9 10^3/uL (4.3-11.0)
[2016-08-08 06:05] LABS: INR 2.4 (0.8-1.4); PROTHROMBIN TIME PATIENT 26.3 SEC (12.2-14.7)
[2016-08-08 06:50] LABS: FOLIC ACID 4.8 ng/mL (1.5-24.0)
--- NOTE | 2016-08-08 07:20 | Progress Note (SOAP) ---
Subjective Subjective/Events-last exam patient feels a little weaker today White blood cell count 1.9 decreased. Platelet 92 increased a little. Patient speaking cadd operator today. Objective Exam Vital Signs Date Time Temp Pulse Resp B/P Pulse Ox O2 Delivery O2 Flow Rate FiO2 08/08/16 05:31 97.0 74 20 118/73 96 Room Air 08/07/16 17:30 97.3 64 18 122/75 98 Room Air 08/07/16 08:12 Room Air I & O 08/08/16 07:00 Intake Total 1350 ml Output Total 800 ml Balance 550 ml Capillary Refill : General Appearance: No Apparent Distress Thin HEENT: Normal ENT Inspection Neck: Full Range of Motion Normal Inspection Respiratory: Chest Non Tender Lungs Clear Normal Breath Sounds No Accessory Muscle Use No Respiratory Distress Results Lab Laboratory Tests 08/08/16 05:17 Laboratory Tests 08/08/16 05:17: Hematocrit 34L, Hemoglobin 10.8L, INR Comment 2.4H, Mean Corpuscular Hemoglobin 26, Mean Corpuscular Hemoglobin Concent 32, Mean Corpuscular Volume 82, Mean Platelet Volume 11.0H, Platelet Count 92L, Prothrombin Time 26.3H, Red Blood Count 4.10L, Red Cell Distribution Width 17.7H, White Blood Count 1.9L Assessment/Plan Assessment/Plan Assess & Plan/Chief Complaint . . weakness. Previous stroke. Sepsis. UTI. Hyponatremia. History of LV thrombus. Acute kidney injury. . 07/17/16 weakness. Sepsis history. Hyponatremia. CVA on left. Patient feeling better todayarea . 06/2616. Weakness. Confusion this morning. Trouble swallowing this morning blood tests CAT scan negative. To give some IV fluids. . 07/19/16. Weakness less. Confusion better. CAT scan of the head negative. Previous stroke. Sepsis. UTI. Hyponatremia. . 07/22/16. Weakness less. More alert. No confusion. Previous stroke on left side. Left knee bothering him.. . Weakness. Previous stroke. Sepsis. Hyponatremia. Patient doing much better.. . 07/24/16. Patient states he is doing better. Patient positive area Patient has weakness of previous stroke. Tablet feelings about this patient's. . 07/25/16. Weakness. Previous CVA. Sepsis. UTI. Hyponatremia. Patient is stronger and improving and feeling positive about himself. . 07/26/16. Weakness. Previous CVA. Sepsis. UTI. Hyponatremia. Patient had a good workup with physical therapy and occupational therapy yesterday.. Patient feels he is getting stronger. . 07/29/16. Weakness is improving. Previous stroke. Sepsis history. UTI. Hyponatremia history patient had trouble getting out of bed and getting exercises with this. Patient has headache this morning. . 07/30/16. Weakness. Previous stroke. Sepsis. UTI. Hyponatremia resolved. Patient doing better and improving. . 07/31/16 . . Debility. Previous stroke. UTI. Hyponatremia. Patient having tarry loose stools. . 08/01/16. Leukopenia. Thrombocytopenia. Patient having muscle spasms in weak side. Weakness. Previous stroke. Sepsis. UTI. Hyponatremia. . 04/01/17 leukopenia. Thrombocytopenia. Previous stroke. Sepsis. Hyponatremia. Patient doing better with physical therapy. Platelet count went up to 97,000. White blood cell count 2500 . . 08/05/16. Weakness. Previous stroke. Leukopenia. Thrombocytopenia consult with hematology. Sepsis. UTI. Hyponatremia. . 08/06/16. Weakness area Leukopenia. Thrombocytopenia. Being evaluated by hematology. . 08/07/16. Patient feeling good today. Weakness. Leukopenia. Thrombocytopenia. Previous stroke. Patient doing better with speech therapy physical therapy and occupational therapy. . . White blood cell count 1.9. Platelet 92. Weakness. Leukopenia. Thrombocytopenia. Previous stroke. Patient being evaluated by cadd operator to speak to patient today Diagnosis/Problems: Clinical Quality Measures DVT/VTE Risk/Contraindication: Risk Factor Score Per Nursin RFS Level Per Nursing on Admit: 4+=Very High VAIBHAV ZAIDI DO Aug 08, 2016 07:20
[2016-08-08] MEDS: LACTOBACILLUS Acidoph/Bulgar (LACTINEX/FLORANEX) TAB PO SCH ×2 (09:00→20:11)
[2016-08-08] MEDS: POLYETHYLENE GLYCOL 17 GM (MIRALAX) PACK PO SCH (09:00)
[2016-08-08] MEDS: CARVEDILOL 6.25 MG (COREG) TAB PO SCH ×2 (09:00→20:11)
[2016-08-08] MEDS: SACUBITRIL/VALSARTAN 24/26 MG (ENTRESTO) TABLET PO SCH ×2 (09:00→20:11)
[2016-08-08] MEDS: OMEGA 3 (FISH OIL) 1000 MG CAP PO SCH (09:00)
[2016-08-08] MEDS: FLUTICASONE NASAL SPRAY (FLONASE) 16 GM BTL NS SCH (09:00)
[2016-08-08] MEDS: DICLOFENAC 1% GEL 100 GM (VOLTAREN) TUBE TOP SCH ×4 (09:00→20:17)
[2016-08-08] MEDS: LORATADINE (CLARITIN) 10 MG TAB PO SCH (09:00)
[2016-08-08] MEDS: GABAPENTIN 300 MG (NEURONTIN) CAP PO SCH ×3 (09:01→20:11)
[2016-08-08] MEDS: MAGNESIUM OXIDE (MAG-OX)400 MG TAB PO SCH (09:01)
[2016-08-08] MEDS: CLOPIDOGREL 75 MG (PLAVIX) TABLET PO SCH (09:01)
[2016-08-08] MEDS: FAMOTIDINE 20 MG (PEPCID) TABLET PO SCH (09:01)
--- NOTE | 2016-08-08 09:25 | Speech Therapy Daily Note ---
Speech Daily Progress Note Subjective The patient was seated upright in wheelchair upon entrance. The patient greeted the clinician appropriately and agreed to participate in the dysphagia treatment session. The patient reported fatigue on this date, reporting he has been awake since 4:00am and "just feels tired." Objective Dysphagia Exercises: The patient continues to demonstrate high accuracy with exercises, displaying 90% with laryngeal, base of tongue, and pharyngeal strengthening exercises. Mild clinician verbal prompting was provided throughout the session. The importance of continued therapy was discussed post discharge. The patient denied any questions or concerns for the clinician. Assessment Assessment Current Status: Good Progress Treatment Plan Continue Plan of Care Communication Comprehension: 6 Expression: 5 Social Cognition Social Interaction: 6 Problem Solvin Memory: 5 Speech Short Term Goals Short Term Goals Short Term Goals 1. The patient will demonstrate oral motor exercises with 90% accuracy, independently. 2. The patient will demonstrate 90% intelligible with functional phrases, independently. 3. The patient will demonstrate dysphagia exercises with 90% accuracy, independently. Time Frame-STG: Two Weeks Speech Digital Marketing Associate Goals Half-Way Goals 1. The patient will demonstrate improved expressive communication for increased safety and function with ADL's. 2. The patient will tolerate the least restrictive diet without signs/symptoms of aspiration or laryngeal penetration. Progressing. (07/19/16) Time Frame: Four Weeks Comprehension: 6 (met-08/07/16) Expression: 5 (met-08/07/16) Social Interaction: 5 (met-08/07/16) Problem Solvin (met-08/07/16) Memory: 5 (met-08/07/16) Speech-Plan Treatment Plan Speech Therapy Treatment Plan: Continue Plan of Care Continue skilled dysphagia therapy to focus on laryngeal, base of tongue, and pharyngeal strengthening. Treatment Duration: Aug 12, 2016 # of days/week Four to five. Visits Per Week: Four to Five Minutes/Day (M-F): 30 Rehab Potential: Fair Safety Risks/Education Teaching Recipient: Patient Teaching Methods: Demonstration, Handout, Discussion Response to Teaching: Verbalize Understanding, Return Demonstration, Reinforcement Needed Education Topics Provided: Dysphagia Exercises Time Speech Therapy Time In: 08:45 Speech Therapy Time Out: 09:15 Total Billed Time: 30 Billed Treatment Time JANY Devlin BRODIEROSANGELAMARI ST Aug 08, 2016 09:25
--- NOTE | 2016-08-08 09:28 | Therapy Team Discharge Summary ---
Therapy Discharge Summary Discharge Recommendations Date of Discharge Therapy D/C Recommendations: Assisted Living, Occupational Therapy Home Care Speech-Language Pathology The patient was recently admitted to [facility] following debility and an UTI secondary to a stroke (January 2016). Upon admission, the patient demonstrated mild oropharyngeal dysphagia, mild cognitive deficits, and mild dysarthria. Skilled speech therapy focused on traditional dysphagia exercises (strengthening), oral motor exercises, and functional cognitive tasks (safety problem solving). The patient met goals placed by the clinician throughout his stay. The patient will be discharged from skilled services at this time. PT Chcf Goals Chcf Goals PT Dedenter Goals Time Frame: Aug 05, 2016 Transfers (B,C,W/C) (FIM): 6 Roll Left to Right (QC): 6 Sit to Lying (QC): 6 Lying-Sitting on Side/Bed(QC): 6 Sit to Stand (QC): 6 Chair/Stt-ms-Nmzeo Xfer(QC): 6 Car Transfer (QC): 4 Gait (FIM): 6 Distance: 150' Walk 10 feet (QC): 6 Walk 10ft-Uneven Surface(QC): 6 Walk 50ft with 2 Turns (QC): 6 Walk 150 ft (QC): 6 Gait Assistive Device: Cane Large Base Quad Stairs (FIM): 2 (met) # of Steps: 4 (et) 1 Step (curb) (QC): 4 (met) 4 Steps (QC): 4 (met) 12 Steps (QC): 88 (score of 4) Stairs Level Of Assist: 5 Picking up an Object (QC): 5 OT Dedenter Goals Dedenter Goals Time Frame: Aug 05, 2016 Eating (FIM): 6 (met-08/07/16) Eating (QC): 6 (met-08/07/16) Oral Hygiene (QC): 6 (met-08/07/16) Grooming(FIM): 5 (met-08/07/16) Bathing(FIM): 4 (met-08/07/16) Shower/Bathe Self (QC): 4 (met-08/07/16) Upper Body Dressing(FIM): 6 (not met) Upper Body Dressing (QC): 6 (not met) Lower Body Dressing(FIM): 5 (not met) Lower Body Dressing (QC): 5 (not met) On/Off Footwear (QC): 4 (not met) Toileting Hygiene (QC): 5 (08/07/16) Toilet/Commode Transfer(FIM): 5 (08/07/16) Toilet/Commode Transfer (QC): 5 (08/07/16) Shower Transfer(FIM): 5 (08/07/16) Comprehension(FIM): 6 (08/07/16) Expression (FIM): 5 (08/07/16) Social Interaction(FIM): 5 (08/07/16) Problem Solving(FIM): 5 (08/07/16) Memory(FIM): 5 (08/07/16) Additional Goals: 1-Demonstrate ADL Tasks, 2-Verbalize Understanding, 3- ImproveStrength/Madalyn 1=Demonstrate adherence to instructed precautions during ADL tasks. 2=Patient will verbalize/demonstrate understanding of assistive devices/ modifications for ADL. 3=Patient will improve strength/tolerance for activity to enable patient to perform ADL's. Speech Chcf Goals Chcf Goals 1. The patient will demonstrate improved expressive communication for increased safety and function with ADL's. 2. The patient will tolerate the least restrictive diet without signs/symptoms of aspiration or laryngeal penetration. Progressing. (07/19/16) Time Frame: Four Weeks Comprehension: 6 (-08/07/16) Expression: 5 (08/07/16) Social Interaction: 5 (08/07/16) Problem Solvin (08/07/16) Memory: 5 (08/07/16) MARI CALLOWAY Aug 08, 2016 09:28
--- NOTE | 2016-08-08 09:52 | Physical Therapy Daily Note ---
PT Daily Note-Current Subjective Patient in wheelchair pre tx, agrees to PT. He has no complaints of pain but states he is very tired this morning. Appearance Patient in wheelchair post tx in his room. Mental Status Patient Orientation: Normal For Age Transfers Functional [place] Measure 0=Not Assessed/NA 4=Minimal Assistance 1=Total Assistance 5=Supervision or Setup 2=Maximal Assistance 6=Modified [place] 3=Moderate Assistance 7=Complete IndependenceIRFPAI Quality Coding Scale 6 Independent with activity with or without an assistive device 5 Patient requires set up or clean up by helper. Patient completes activity by themselves 4 Supervision or touching assist (CGA). [place] provide cues , steadying assist 3 The helper provides less than half the effort to complete the activity 2 The helper provides more than half the effort to complete the activity 1 Dependent. The helper does all the effort to complete an activity 7 Patient refused to complete or attempt activity 9 The patient did not perform the activity before the current illness or injury 88 Not attempted due to Medical conditions or safety concerns Transfers (B, C, W/C) (FIM): 5 Sit to/from Stand: 5 Bed to/from Chair: 5 appropriate use of handhold, slow, careful transfers Gait Training Gait (FIM): 2 Distance: 75'x2 Gait Level of Assist: 4 Gait Persons Needed: 1 Gait Assistive Device: Cane Large Base Quad CGA, patient was very tired and needed a sitting rest break after walking about 75' Exercises LAQ left side for 5 min NuStep Minutes: 15 NuStep Workload: 5 Treatments transfers, ambulation, functional strengthening Assessment Current Status: Fair Progress patient very tired today, slower mobility and didn't ambulate as far PT Short Term Goals Short Term Goals Time Frame: Jul 22, 2016 Gait (FIM): 2 Gait Distance Comment: 70' Gait Level of Assist: 5 Gait Assistive Device: Cane Large Base Quad Wheelchair Distance: 300' PT Senior Care Goals Privacy Attorney Goals PT Privacy Attorney Goals Time Frame: Aug 05, 2016 Transfers (B,C,W/C) (FIM): 6 Sit to Lying (QC): 6 Lying-Sitting on Side/Bed(QC): 6 Sit to Stand (QC): 6 Rollin (met) Roll Left to Right (QC): 6 Chair/Yho-wp-Xsguc Xfer(QC): 6 Car Transfer (QC): 4 Gait (FIM): 6 Distance: 150' Walk 10 feet (QC): 6 Walk 10ft-Uneven Surface(QC): 6 Walk 50ft with 2 Turns (QC): 6 Walk 150 ft (QC): 6 Gait Assistive Device: Cane Large Base Quad Stairs (FIM): 2 (met) # of Steps: 4 (et) 1 Step (curb) (QC): 4 (met) 4 Steps (QC): 4 (met) 12 Steps (QC): 88 (score of 4) Stairs Level Of Assist: 5 Picking up an Object (QC): 5 PT Plan Problem List Problem List: Activity Tolerance, Functional Strength, Safety, Balance, Gait, Transfer, Bed Mobility, ROM Treatment/Plan Treatment Plan: Continue Plan of Care Treatment Plan: Bed Mobility, Education, Functional Activity Madalyn, Functional Strength, Group Therapy, Gait, Safety, Therapeutic Exercise, Transfers Treatment Duration: Aug 05, 2016 Visits Per Week: 10-11 Minutes/Day (M-F): 60-90 Minutes/Day (Sat/Bryant): 15-30 Safety Risks/Education Patient Education: Gait Training, Transfer Techniques, Safety Issues Teaching Recipient: Patient Teaching Methods: Demonstration, Discussion Response to Teaching: Reinforcement Needed Time/GCodes Time In: 900 Time Out: 945 Total Billed Treatment Time: 45 Total Billed Treatment 1 visit GT 20 min EX 25 min ADONAY MULLEN PT Aug 08, 2016 09:52
--- NOTE | 2016-08-08 10:07 | Occupational Ther Daily Note ---
OT Current Status-Daily Note Subjective Pt sitting in w/c and alert. Pt agreed to therapy. No c/o pain. Mental Status/Objective Patient Orientation: Person, Place, Time, Situation Functional [place] Measure 0=Not Assessed/NA 4=Minimal Assistance 1=Total Assistance 5=Supervision or Setup 2=Maximal Assistance 6=Modified [place] 3=Moderate Assistance 7=Complete [place] ADL-Treatment Pt worked on tub transfers simulating his home environment. At his apartment, pt has one vertical grabbar and one horizontal grabbar on the front of his time with a rectangular cut out in the tub ledge with approximate 2" lip. Pt has tub seat with back at home. Pt had minimal difficulty with transfer by placing feet into tub then using grabbars on front of tub to pull self up to stand, needed CGA for safety. Pt's toilet at home does not have grabbars and the only wall is at the back of the tub, toilet height 20.5". Pt states that his daughter is getting a frame to place on toilet for arm rests to make transfers easier. Pt attempted this transfer without grabbars and used hemiwalker for support with CGA. Pt then demonstrated ability to stand at counter tops in ARU kitchen while leaning on counter with SBA. Pt was able to get into low cabinets and refrigerator at w/c level by self. Pt was able to complete set up for breakfast by self. Gave pt AE magazine and reviewed items that would benefit him at home. After therapy, pt sitting on toilet with call light in reach. All needs met in room. Functional [place] Measure 0=Not Assessed/NA 4=Minimal Assistance 1=Total Assistance 5=Supervision or Setup 2=Maximal Assistance 6=Modified [place] 3=Moderate Assistance 7=Complete IndependenceIRFPAI Quality Coding Scale 6 Independent with activity with or without an assistive device 5 Patient requires set up or clean up by helper. Patient completes activity by themselves 4 Supervision or touching assist (CGA). [place] provide cues , steadying assist 3 The helper provides less than half the effort to complete the activity 2 The helper provides more than half the effort to complete the activity 1 Dependent. The helper does all the effort to complete an activity 7 Patient refused to complete or attempt activity 9 The patient did not perform the activity before the current illness or injury 88 Not attempted due to Medical conditions or safety concerns OT Short Term Goals Short Term Goals Time Frame: Jul 22, 2016 Bathing(FIM): 4 (met-08/07/16) Upper Body Dressing(FIM): 4 (-08/07/16) Lower Body Dressing(FIM): 3 (met-08/07/16) Toileting(FIM): 4 (met-08/07/16) Toilet/Commode Transfer(FIM): 4 (met-08/07/16) Shower Transfer(FIM): 4 (CGA:met-08/07/16) Additional Short Term Goals: 1-Demonstrate ADL Tasks, 2-Verbalize Understanding , 3-ImproveStrength/Madalyn 1=Demonstrate adherence to instructed precautions during ADL tasks. 2=Patient will verbalize/demonstrate understanding of assistive devices/ modifications for ADL. 3=Patient will improve strength/tolerance for activity to enable patient to perform ADL's. OT Help Desk Associate Goals Senior Care Goals Time Frame: Aug 05, 2016 Eating (FIM): 6 (met-08/07/16) Eating (QC): 6 (met-08/07/16) Groomin (met-08/07/16) Oral Hygiene (QC): 6 (met-08/07/16) Bathing(FIM): 4 (met-08/07/16) Shower/Bathe Self (QC): 4 (met-08/07/16) Upper Body Dressing(FIM): 6 (not met) Upper Body Dressing (QC): 6 (not met) Lower Body Dressing(FIM): 5 (not met) Lower Body Dressing (QC): 5 (not met) On/Off Footwear (QC): 4 (not met) Toileting Hygiene (QC): 5 (met-08/07/16) Toilet/Commode Transfer(FIM): 5 (met-08/07/16) Toilet/Commode Transfer (QC): 5 (met-08/07/16) Shower Transfer(FIM): 5 (met-08/07/16) Comprehension(FIM): 6 (met-08/07/16) Expression (FIM): 5 (met-08/07/16) Social Interaction(FIM): 5 (met-08/07/16) Problem Solving(FIM): 5 (met-08/07/16) Memory(FIM): 5 (met-08/07/16) Additional Goals: 1-Demonstrate ADL Tasks, 2-Verbalize Understanding, 3- ImproveStrength/Madalyn 1=Demonstrate adherence to instructed precautions during ADL tasks. 2=Patient will verbalize/demonstrate understanding of assistive devices/ modifications for ADL. 3=Patient will improve strength/tolerance for activity to enable patient to perform ADL's. OT Education/Plan Problem List/Assessment Pt to benefit from skilled OT intervention for ADL training, transfers, ROM/ strengthening, and safety education to maximize level of independence and allow safe discharge. Discharge Recommendations Plan/Recommendations: Continue POC Treatment Plan/Plan of Care Patient would benefit from OT for education, treatment and training to promote independence in ADL's, mobility, safety and/or upper extremity function for ADL' s. Plan of Care: ADL Retraining, Functional Mobility, Group Exercise/Act as Ind, Orthotic Fitting/Training, UE Funct Exercise/Act, UE Neuromus Re-Ed/Coord Treatment Duration: Aug 05, 2016 Visits Per Week: 10-11 Minutes/Day (M-F): 60-90 Minutes/Day (Sat/Bryant): PRN Agreement: Yes Rehab Potential: Fair Time/GCodes Start Time: 07:00 Stop Time: 08:15 Total Time Billed (hr/min): 75 Billed Treatment Time 1 visit-ADL 5 (75 min) TULIO BERGMAN Aug 08, 2016 10:07
--- NOTE | 2016-08-08 13:20 | Physical Therapy Daily Note ---
PT Daily Note-Current Subjective Agrees to PT. Reports he is tired to day. Ready to discharge home tomorrow. Transfers Functional [place] Measure 0=Not Assessed/NA 4=Minimal Assistance 1=Total Assistance 5=Supervision or Setup 2=Maximal Assistance 6=Modified [place] 3=Moderate Assistance 7=Complete IndependenceIRFPAI Quality Coding Scale 6 Independent with activity with or without an assistive device 5 Patient requires set up or clean up by helper. Patient completes activity by themselves 4 Supervision or touching assist (CGA). [place] provide cues , steadying assist 3 The helper provides less than half the effort to complete the activity 2 The helper provides more than half the effort to complete the activity 1 Dependent. The helper does all the effort to complete an activity 7 Patient refused to complete or attempt activity 9 The patient did not perform the activity before the current illness or injury 88 Not attempted due to Medical conditions or safety concerns Treatments Gait training with hemiwalker 50 ft x 2. Nu step x 15 min for functional strength. Gait slow with left LE in ER and decreased step length. No LOB noted , safe with gait and transfers. Assessment Current Status: Good Progress Progressing. Functional mobility improved. To discharge tomorrow. PT Short Term Goals Short Term Goals Time Frame: Jul 22, 2016 Gait (FIM): 2 Gait Distance Comment: 70' Gait Level of Assist: 5 Gait Assistive Device: Cane Large Base Quad Wheelchair Distance: 300' PT [employer] Goals Penitentiary Goals PT Penitentiary Goals Time Frame: Aug 05, 2016 Transfers (B,C,W/C) (FIM): 6 Sit to Lying (QC): 6 Lying-Sitting on Side/Bed(QC): 6 Sit to Stand (QC): 6 Rollin (met) Roll Left to Right (QC): 6 Chair/Cvv-ea-Wpafz Xfer(QC): 6 Car Transfer (QC): 4 Gait (FIM): 6 Distance: 150' Walk 10 feet (QC): 6 Walk 10ft-Uneven Surface(QC): 6 Walk 50ft with 2 Turns (QC): 6 Walk 150 ft (QC): 6 Gait Assistive Device: Cane Large Base Quad Stairs (FIM): 2 (met) # of Steps: 4 (et) 1 Step (curb) (QC): 4 (met) 4 Steps (QC): 4 (met) 12 Steps (QC): 88 (score of 4) Stairs Level Of Assist: 5 Picking up an Object (QC): 5 PT Plan Problem List Problem List: Activity Tolerance, Functional Strength Treatment/Plan Treatment Plan: Continue Plan of Care Treatment Plan: Bed Mobility, Education, Functional Activity Madalyn, Functional Strength, Group Therapy, Gait, Safety, Therapeutic Exercise, Transfers Treatment Duration: Aug 05, 2016 Visits Per Week: 10-11 Minutes/Day (M-F): 60-90 Minutes/Day (Sat/Bryant): 15-30 Time/GCodes Time In: 1230 Time Out: 1300 Total Billed Treatment Time: 30 Total Billed Treatment visit GT 15 EX 15 TULIO SOUSA PT Aug 08, 2016 13:20
[2016-08-08] MEDS: warFARin 5 MG (COUMADIN) TAB PO SCH (17:36)
[2016-08-08] MEDS: ALFUZOSIN HCL 10 MG TAB (UROXATRAL) PO SCH (17:36)
[2016-08-08] MEDS ORDERED: SACU1TAB PO (17:48)
[2016-08-08 18:18] VITALS: BP 123/76
[2016-08-08] MEDS: ALPRAZolam 0.5 MG (XANAX) TAB PO SCH (20:11)
[2016-08-08] MEDS: ATORVASTATIN 40 MG (LIPITOR) TABLET PO SCH (20:13)
[2016-08-08] MEDS: MELATONIN 3 MG TABLET PO SCH (20:15)
[2016-08-09 06:00] VITALS: BP 131/82
[2016-08-09 06:51] LABS: MEAN PLATELET VOLUME 11.6 FL (7.4-10.4); RED BLOOD COUNT 4.15 10^6/uL (4.35-5.85); RED CELL DISTRIBUTION WIDTH 17.6 % (10.0-14.5); WHITE BLOOD COUNT 2.4 10^3/uL (4.3-11.0)
[2016-08-09 07:02] LABS: INR 2.2 (0.8-1.4)
[2016-08-09 07:19] LABS: CALCIUM 9.5 MG/DL (8.5-10.1); CREATININE SERUM 1.39 MG/DL (0.60-1.30); POTASSIUM 3.9 MMOL/L (3.6-5.0)
[2016-08-09] MEDS: GABAPENTIN 300 MG (NEURONTIN) CAP PO SCH (08:07)
[2016-08-09] MEDS: FAMOTIDINE 20 MG (PEPCID) TABLET PO SCH (08:07)
[2016-08-09] MEDS: CLOPIDOGREL 75 MG (PLAVIX) TABLET PO SCH (08:07)
[2016-08-09] MEDS: LACTOBACILLUS Acidoph/Bulgar (LACTINEX/FLORANEX) TAB PO SCH (08:07)
[2016-08-09] MEDS: MAGNESIUM OXIDE (MAG-OX)400 MG TAB PO SCH (08:07)
[2016-08-09] MEDS: LORATADINE (CLARITIN) 10 MG TAB PO SCH (08:07)
[2016-08-09] MEDS: SACUBITRIL/VALSARTAN 24/26 MG (ENTRESTO) TABLET PO SCH (08:07)
[2016-08-09] MEDS: OMEGA 3 (FISH OIL) 1000 MG CAP PO SCH (08:07)
[2016-08-09] MEDS: CARVEDILOL 6.25 MG (COREG) TAB PO SCH (08:07)
[2016-08-09] MEDS: FLUTICASONE NASAL SPRAY (FLONASE) 16 GM BTL NS SCH (08:10)
[2016-08-09] MEDS: DICLOFENAC 1% GEL 100 GM (VOLTAREN) TUBE TOP SCH (08:11)
[2016-08-09] MEDS: POLYETHYLENE GLYCOL 17 GM (MIRALAX) PACK PO SCH (08:11)
--- NOTE | 2016-08-09 09:02 | Occupational Ther Daily Note ---
OT Current Status-Daily Note Subjective Pt alert, patient packing up room to go home today. Physician wants to make sure on pt's white blood count before he goes home. Pt agreed to therapy. No c /o pain. Mental Status/Objective Patient Orientation: Person, Place, Time, Situation Functional [place] Measure 0=Not Assessed/NA 4=Minimal Assistance 1=Total Assistance 5=Supervision or Setup 2=Maximal Assistance 6=Modified [place] 3=Moderate Assistance 7=Complete [place] ADL-Treatment Pt able to retrieve clothing from closet at w/c level then transport to bathroom. Pt transferred to toilet using grabbars and BSC with SBA. Pt manipulated own clothing and cleansed self. Pt transferred self with SBA using grabbars, tub seat with back and w/c. Pt bathed self then required SBA when standing to cleanse buttocks. Pt dried self. Pt was able to doff upper body clothing by self, don machine puller shirt by self, don button up shirt with min A. Pt doffed lower body clothing by self. Donned pants/underwear by self then when standing to hike over hips, SBA. Donned socks by self. Assist needed for shoes. Pt completed grooming sitting at sink by self. After therapy, pt sitting in w/c with call light/phone in reach. All needs met in room. Functional [place] Measure 0=Not Assessed/NA 4=Minimal Assistance 1=Total Assistance 5=Supervision or Setup 2=Maximal Assistance 6=Modified [place] 3=Moderate Assistance 7=Complete IndependenceIRFPAI Quality Coding Scale 6 Independent with activity with or without an assistive device 5 Patient requires set up or clean up by helper. Patient completes activity by themselves 4 Supervision or touching assist (CGA). [place] provide cues , steadying assist 3 The helper provides less than half the effort to complete the activity 2 The helper provides more than half the effort to complete the activity 1 Dependent. The helper does all the effort to complete an activity 7 Patient refused to complete or attempt activity 9 The patient did not perform the activity before the current illness or injury 88 Not attempted due to Medical conditions or safety concerns OT Short Term Goals Short Term Goals Time Frame: Jul 22, 2016 Bathing(FIM): 4 (met-08/07/16) Upper Body Dressing(FIM): 4 (met-08/07/16) Lower Body Dressing(FIM): 3 (met-08/07/16) Toileting(FIM): 4 (met-08/07/16) Toilet/Commode Transfer(FIM): 4 (-08/07/16) Shower Transfer(FIM): 4 (CGA:-08/07/16) Additional Short Term Goals: 1-Demonstrate ADL Tasks, 2-Verbalize Understanding , 3-ImproveStrength/Madalyn 1=Demonstrate adherence to instructed precautions during ADL tasks. 2=Patient will verbalize/demonstrate understanding of assistive devices/ modifications for ADL. 3=Patient will improve strength/tolerance for activity to enable patient to perform ADL's. OT Longterm Goals Longterm Goals Time Frame: Aug 05, 2016 Eating (FIM): 6 (met-08/07/16) Eating (QC): 6 (met-08/07/16) Groomin (met-08/07/16) Oral Hygiene (QC): 6 (met-08/07/16) Bathing(FIM): 4 (met-08/07/16) Shower/Bathe Self (QC): 4 (met-08/07/16) Upper Body Dressing(FIM): 6 (not met) Upper Body Dressing (QC): 6 (not met) Lower Body Dressing(FIM): 5 (not met) Lower Body Dressing (QC): 5 (not met) On/Off Footwear (QC): 4 (not met) Toileting Hygiene (QC): 5 (met-08/07/16) Toilet/Commode Transfer(FIM): 5 (met-08/07/16) Toilet/Commode Transfer (QC): 5 (met-08/07/16) Shower Transfer(FIM): 5 (met-08/07/16) Comprehension(FIM): 6 (-08/07/16) Expression (FIM): 5 (-08/07/16) Social Interaction(FIM): 5 (met-08/07/16) Problem Solving(FIM): 5 (met-08/07/16) Memory(FIM): 5 (met-08/07/16) Additional Goals: 1-Demonstrate ADL Tasks, 2-Verbalize Understanding, 3- ImproveStrength/Madalyn 1=Demonstrate adherence to instructed precautions during ADL tasks. 2=Patient will verbalize/demonstrate understanding of assistive devices/ modifications for ADL. 3=Patient will improve strength/tolerance for activity to enable patient to perform ADL's. OT Education/Plan Problem List/Assessment Pt to benefit from skilled OT intervention for ADL training, transfers, ROM/ strengthening, and safety education to maximize level of independence and allow safe discharge. Discharge Recommendations Plan/Recommendations: Continue POC Treatment Plan/Plan of Care Patient would benefit from OT for education, treatment and training to promote independence in ADL's, mobility, safety and/or upper extremity function for ADL' s. Plan of Care: ADL Retraining, Functional Mobility, Group Exercise/Act as Ind, Orthotic Fitting/Training, UE Funct Exercise/Act, UE Neuromus Re-Ed/Coord Treatment Duration: Aug 05, 2016 Visits Per Week: 10-11 Minutes/Day (M-F): 60-90 Minutes/Day (Sat/Bryant): PRN Agreement: Yes Rehab Potential: Fair Time/GCodes Start Time: 08:00 Stop Time: 09:00 Total Time Billed (hr/min): 60 Billed Treatment Time 1 visit-ADL 4 (60 min) TULIO BERGMAN Aug 09, 2016 09:01
--- NOTE | 2016-08-09 09:03 | Progress Note (SOAP) ---
Subjective Subjective/Events-last exam patient feeling better. Blood tests show some improvement today. Patient to speak to Dr. Andrade before discharge about his medications and course of thrombocytopenia and leukopenia Objective Exam Vital Signs Date Time Temp Pulse Resp B/P Pulse Ox O2 Delivery O2 Flow Rate FiO2 08/09/16 06:00 97.4 63 20 131/82 97 Room Air 08/08/16 18:18 96.9 67 16 123/76 99 I & O 08/09/16 07:00 Intake Total 1850 ml Balance 1850 ml Capillary Refill : General Appearance: No Apparent Distress Thin Results Lab Laboratory Tests 08/09/16 06:01 Laboratory Tests 08/09/16 06:01: Anion Gap 11, BUN/Creatinine Ratio 13, Blood Urea Nitrogen 18, Calcium Level 9.5 , Carbon Dioxide Level 22, Chloride Level 105, Creatinine 1.39H, Estimat Glomerular Filtration Rate 52, Glucose Level 91, Hematocrit 34L, Hemoglobin 11.0L, INR Comment 2.2H, Mean Corpuscular Hemoglobin 27, Mean Corpuscular Hemoglobin Concent 33, Mean Corpuscular Volume 81, Mean Platelet Volume 11.6H, Platelet Count 106L, Potassium Level 3.9, Prothrombin Time 24.0H, Red Blood Count 4.15L, Red Cell Distribution Width 17.6H, Sodium Level 138, White Blood Count 2.4L Assessment/Plan Assessment/Plan Assess & Plan/Chief Complaint . . weakness. Previous stroke. Sepsis. UTI. Hyponatremia. History of LV thrombus. Acute kidney injury. . 07/17/16 weakness. Sepsis history. Hyponatremia. CVA on left. Patient feeling better todayarea . 06/2616. Weakness. Confusion this morning. Trouble swallowing this morning blood tests CAT scan negative. To give some IV fluids. . 07/19/16. Weakness less. Confusion better. CAT scan of the head negative. Previous stroke. Sepsis. UTI. Hyponatremia. . 07/22/16. Weakness less. More alert. No confusion. Previous stroke on left side. Left knee bothering him.. . Weakness. Previous stroke. Sepsis. Hyponatremia. Patient doing much better.. . 07/24/16. Patient states he is doing better. Patient positive area Patient has weakness of previous stroke. Tablet feelings about this patient's. . 07/25/16. Weakness. Previous CVA. Sepsis. UTI. Hyponatremia. Patient is stronger and improving and feeling positive about himself. . 07/26/16. Weakness. Previous CVA. Sepsis. UTI. Hyponatremia. Patient had a good workup with physical therapy and occupational therapy yesterday.. Patient feels he is getting stronger. . 07/29/16. Weakness is improving. Previous stroke. Sepsis history. UTI. Hyponatremia history patient had trouble getting out of bed and getting exercises with this. Patient has headache this morning. . 07/30/16. Weakness. Previous stroke. Sepsis. UTI. Hyponatremia resolved. Patient doing better and improving. . 07/31/16 . . Debility. Previous stroke. UTI. Hyponatremia. Patient having tarry loose stools. . 08/01/16. Leukopenia. Thrombocytopenia. Patient having muscle spasms in weak side. Weakness. Previous stroke. Sepsis. UTI. Hyponatremia. . 04/01/17 leukopenia. Thrombocytopenia. Previous stroke. Sepsis. Hyponatremia. Patient doing better with physical therapy. Platelet count went up to 97,000. White blood cell count 2500 . . 08/05/16. Weakness. Previous stroke. Leukopenia. Thrombocytopenia consult with hematology. Sepsis. UTI. Hyponatremia. . 08/06/16. Weakness area Leukopenia. Thrombocytopenia. Being evaluated by hematology. . 08/07/16. Patient feeling good today. Weakness. Leukopenia. Thrombocytopenia. Previous stroke. Patient doing better with speech therapy physical therapy and occupational therapy. . . White blood cell count 1.9. Platelet 92. Weakness. Leukopenia. Thrombocytopenia. Previous stroke. Patient being evaluated by link machine operator to speak to patient today. . Weakness. Leukopenia. Thrombocytopenia. 08/09/16. To speak to Dr. Andrade before discharge back blood tests Diagnosis/Problems: Clinical Quality Measures DVT/VTE Risk/Contraindication: Risk Factor Score Per Nursin RFS Level Per Nursing on Admit: 4+=Very High VAIBHAV ZAIDI DO Aug 09, 2016 09:03
[2016-08-09] MEDS ORDERED: FOLI1TAB24 PO (10:51)
--- NOTE | 2016-08-09 10:56 | PM & R (SOAP) Progress Note ---
Subjective Subjective/Events-last exam Patient was seen in his room this AM Discussed case with DR Arizmendi he requests clearance from Hem for discharge CBC improved with Increased WBC COUNT and Plates DR Raymond mullen Folic acid added to discharge meds So ordered Discussed with RN Objective Exam Last Set of Vital Signs Vital Signs Date Time Temp Pulse Resp B/P Pulse Ox O2 Delivery O2 Flow Rate FiO2 08/09/16 06:00 97.4 63 20 131/82 97 Room Air Capillary Refill : I&O Intake and Output 08/09/16 00:00 Intake Total 1500 ml Balance 1500 ml Intake Oral 1500 ml # Voids 7 # Bowel Movements 2 General: Alert, Oriented X3, Cooperative, No Acute Distress HEENT: Atraumatic, PERRLA, EOMI, Mucous Memb Moist/[place] Neck: Supple, No JVD Lungs: Clear to Auscultation Heart: Regular Rate Abdomen: Normal Bowel Sounds, Soft, No Tenderness Extremities: No Edema Neuro: Other (Doing better with improved strength and speech Very alert Self propels w/c on unit) Results Lab Laboratory Tests 08/07/16 06:07: Ferritin 36.0, Folate 4.8, Hematocrit 34L, Hemoglobin 10.9L, INR Comment 2.5H, Iron Level 26L, Mean Corpuscular Hemoglobin 26, Mean Corpuscular Hemoglobin Concent 32, Mean Corpuscular Volume 82, Mean Platelet Volume 11.0H, Platelet Count 94L, Prothrombin Time 27.0H, Red Blood Count 4.13L, Red Cell Distribution Width 17.9H, Total Iron Binding Capacity 302, Transferrin % Saturation 9L, Unsaturated Iron Binding Capacity 276, Vitamin B12 Level 592, White Blood Count 2.4L 08/08/16 05:17: Hematocrit 34L, Hemoglobin 10.8L, INR Comment 2.4H, Mean Corpuscular Hemoglobin 26, Mean Corpuscular Hemoglobin Concent 32, Mean Corpuscular Volume 82, Mean Platelet Volume 11.0H, Platelet Count 92L, Prothrombin Time 26.3H, Red Blood Count 4.10L, Red Cell Distribution Width 17.7H, White Blood Count 1.9L 08/09/16 06:01: Hematocrit 34L, Hemoglobin 11.0L, INR Comment 2.2H, Mean Corpuscular Hemoglobin 27, Mean Corpuscular Hemoglobin Concent 33, Mean Corpuscular Volume 81, Mean Platelet Volume 11.6H, Platelet Count 106L, Prothrombin Time 24.0H, Red Blood Count 4.15L, Red Cell Distribution Width 17.6H, White Blood Count 2.4L, Anion Gap 11, BUN/Creatinine Ratio 13, Blood Urea Nitrogen 18, Calcium Level 9.5, Carbon Dioxide Level 22, Chloride Level 105, Creatinine 1.39H, Estimat Glomerular Filtration Rate 52, Glucose Level 91, Potassium Level 3.9, Sodium Level 138 Assessment/Plan Assessment General debil secondary to UTI with sepsis treated OSH Change in mental status w/u in progress-will d/c baclofen-and now improved s/p 1 lter of IVFS and with Baclfen d/cd 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
--- NOTE | 2016-08-09 11:01 | Progress Note-Standard ---
Standard Progress Note Progress Notes/Assess & Plan Progress/Assessment & Plan 61 year old male rehabing from UTI and CVA. CBC showed pancytopenia and a hematology consult obtained. Iron studies consistant with iron deficiency. Folate level low. Recommend folic acid 1 mg po daily and FeSO4 325 mg po twice daily. Repeat CBC in 2 and 4 weeks and follow with PCP. No f/u with me at this time If pancytopenia continues, he will need further workup including bone marrow evaluation. RUKHSANA PARRA Aug 09, 2016 11:01
--- NOTE | 2016-08-09 11:27 | Therapy Team Discharge Summary ---
Therapy Discharge Summary Discharge Recommendations Date of Discharge Therapy D/C Recommendations: Assisted Living, Occupational Therapy Home Care Physical Therapy Patient came to rehab following a UTI with debility and previous CVA with left hemiparesis. Upon admission patient performed bed mobility with standby assist and transfers with CGA, ambulated 30' with a hemiwalker with CGA and a left AFO (no uneven surfaces at that time), propelled a wheelchair 200' with mod I, and could go up and down 1 step using a hemiwalker with min assist. Patient has been performing bed mobility and transfer training, balance and endurance training, functional strengthening, stair training, gait training, ROM, and education. 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 Now, patient performs bed mobility and transfers with SBA, ambulates 150' with a quad cane with CGA and left AFO (including 10' over and uneven surface like carpet and 50' with at least 2 turns of 90 degrees), is mod I with wheelchair mobility, and can go up and down 12 steps using 1 handrail with CGA. Patient is being discharged from this facility today and will be discharged from PT at this time. PT Longterm Goals Longterm Goals PT Cement Mason Goals Time Frame: Aug 05, 2016 Transfers (B,C,W/C) (FIM): 6 Roll Left to Right (QC): 6 Sit to Lying (QC): 6 Lying-Sitting on Side/Bed(QC): 6 Sit to Stand (QC): 6 Chair/Cbj-lq-Ucxnk Xfer(QC): 6 Car Transfer (QC): 4 Gait (FIM): 6 Distance: 150' Walk 10 feet (QC): 6 Walk 10ft-Uneven Surface(QC): 6 Walk 50ft with 2 Turns (QC): 6 Walk 150 ft (QC): 6 Gait Assistive Device: Cane Large Base Quad Stairs (FIM): 2 (met) # of Steps: 4 (et) 1 Step (curb) (QC): 4 (met) 4 Steps (QC): 4 (met) 12 Steps (QC): 88 (score of 4) Stairs Level Of Assist: 5 Picking up an Object (QC): 5 OT Longterm Goals Cement Mason Goals Time Frame: Aug 05, 2016 Eating (FIM): 6 (met-2//) Eating (QC): 6 (met-2/15/17) Oral Hygiene (QC): 6 (-08/07/16) Grooming(FIM): 5 (08/07/16) Bathing(FIM): 4 (-08/07/16) Shower/Bathe Self (QC): 4 (-08/07/16) Upper Body Dressing(FIM): 6 (not met) Upper Body Dressing (QC): 6 (not met) Lower Body Dressing(FIM): 5 (not met) Lower Body Dressing (QC): 5 (not met) On/Off Footwear (QC): 4 (not met) Toileting Hygiene (QC): 5 (08/07/16) Toilet/Commode Transfer(FIM): 5 (08/07/16) Toilet/Commode Transfer (QC): 5 (08/07/16) Shower Transfer(FIM): 5 (08/07/16) Comprehension(FIM): 6 (08/07/16) Expression (FIM): 5 (08/07/16) Social Interaction(FIM): 5 (08/07/16) Problem Solving(FIM): 5 (08/07/16) Memory(FIM): 5 (08/07/16) Additional Goals: 1-Demonstrate ADL Tasks, 2-Verbalize Understanding, 3- ImproveStrength/Madalyn 1=Demonstrate adherence to instructed precautions during ADL tasks. 2=Patient will verbalize/demonstrate understanding of assistive devices/ modifications for ADL. 3=Patient will improve strength/tolerance for activity to enable patient to perform ADL's. Speech Cement Mason Goals Cement Mason Goals 1. The patient will demonstrate improved expressive communication for increased safety and function with ADL's. 2. The patient will tolerate the least restrictive diet without signs/symptoms of aspiration or laryngeal penetration. Progressing. (07/19/16) Time Frame: Four Weeks Comprehension: 6 (-08/07/16) Expression: 5 (08/07/16) Social Interaction: 5 (08/07/16) Problem Solvin (08/07/16) Memory: 5 (08/07/16) ADONAY MULLEN PT Aug 09, 2016 11:26
[2016-08-09 11:58] VITALS: BP 131/82
[2016-08-09 12:04] VITALS: BP 131/82
--- NOTE | 2016-08-09 14:31 | Therapy Team Discharge Summary ---
Therapy Discharge Summary Discharge Recommendations Date of Discharge Aug 09, 2016 at 11:55 Therapy D/C Recommendations: Assisted Living, Occupational Therapy Home Care Occupational Therapy Pt admitted to ARU secondary to UTI with debility and previous CVA with left hemiparesis. On admission pt required moderate assistance for UE dressing, bathing, and toilet transfer and max assist for LE dressing. Skilled OT intervention focused on ADL training, transfers, strengthening, ROM, coordination, and safety education. Pt made good progress with therapy and by discharge is completing dressing with minimal assistance; transfers and bathing with SBA; and feeding and grooming with modified independence. Pt met goals for eating, grooming, bathing, toilet transfer, and shower transfer, but did not meet dressing goals. Pt discharging this date to independent living apartment. D /C ARU OT at this time. PT Chcf Goals Chcf Goals PT Nursing Officer Goals Time Frame: Aug 05, 2016 Transfers (B,C,W/C) (FIM): 6 Roll Left to Right (QC): 6 Sit to Lying (QC): 6 Lying-Sitting on Side/Bed(QC): 6 Sit to Stand (QC): 6 Chair/Mqy-lv-Zlazu Xfer(QC): 6 Car Transfer (QC): 4 Gait (FIM): 6 Distance: 150' Walk 10 feet (QC): 6 Walk 10ft-Uneven Surface(QC): 6 Walk 50ft with 2 Turns (QC): 6 Walk 150 ft (QC): 6 Gait Assistive Device: Cane Large Base Quad Stairs (FIM): 2 (met) # of Steps: 4 (et) 1 Step (curb) (QC): 4 (met) 4 Steps (QC): 4 (met) 12 Steps (QC): 88 (score of 4) Stairs Level Of Assist: 5 Picking up an Object (QC): 5 OT Nursing Officer Goals Nursing Officer Goals Time Frame: Aug 05, 2016 Eating (FIM): 6 (met-08/07/16) Eating (QC): 6 (met-08/07/16) Oral Hygiene (QC): 6 (met-08/07/16) Grooming(FIM): 5 (met-08/07/16) Bathing(FIM): 4 (met-08/07/16) Shower/Bathe Self (QC): 4 (met-08/07/16) Upper Body Dressing(FIM): 6 (not met) Upper Body Dressing (QC): 6 (not met) Lower Body Dressing(FIM): 5 (not met) Lower Body Dressing (QC): 5 (not met) On/Off Footwear (QC): 4 (not met) Toileting Hygiene (QC): 5 (-08/07/16) Toilet/Commode Transfer(FIM): 5 (08/07/16) Toilet/Commode Transfer (QC): 5 (08/07/16) Shower Transfer(FIM): 5 (08/07/16) Comprehension(FIM): 6 (08/07/16) Expression (FIM): 5 (08/07/16) Social Interaction(FIM): 5 (08/07/16) Problem Solving(FIM): 5 (08/07/16) Memory(FIM): 5 (08/07/16) Additional Goals: 1-Demonstrate ADL Tasks, 2-Verbalize Understanding, 3- ImproveStrength/Madalyn 1=Demonstrate adherence to instructed precautions during ADL tasks. 2=Patient will verbalize/demonstrate understanding of assistive devices/ modifications for ADL. 3=Patient will improve strength/tolerance for activity to enable patient to perform ADL's. Speech Chcf Goals Nursing Officer Goals 1. The patient will demonstrate improved expressive communication for increased safety and function with ADL's. 2. The patient will tolerate the least restrictive diet without signs/symptoms of aspiration or laryngeal penetration. Progressing. (07/19/16) Time Frame: Four Weeks Comprehension: 6 (-08/07/16) Expression: 5 (08/07/16) Social Interaction: 5 (08/07/16) Problem Solvin (08/07/16) Memory: 5 (08/07/16) RASHIDA ORTIZ OT Aug 09, 2016 14:31
--- NOTE | 2016-08-22 10:53 | DISCHARGE SUMMARY ---
DATE OF ADMISSION: 07/14/2016 DATE OF DISCHARGE: 08/09/2016 HISTORY OF PRESENT ILLNESS: The patient is a pleasant 60-year-old disabled male who sustained a CVA with left hemiparesis and dysarthria this past January. He lives at home with family in [place], [place]. He had stenting for carotid artery disease and coronary artery disease at [facility] in [place], [place]. He subsequently went home, developed a UTI and was admitted and treated for sepsis. He had a decline in functional independence after this. He reports having been modified independent for the most part at the wheelchair level at home after his initial stroke. He has a supportive family, one of whom works for [employer]. He had some return of strength in the left leg, only trace in the left upper limb and he is right-hand dominant. His family lives nearby. He has recently been approved for Social Security disability and is waiting for an [place] Medicaid card to be approved. PAST MEDICAL HISTORY: 1. Right CVA with left hemiparesis. 2. History of left ventricular thrombus chronically anticoagulated. 3. UTI with sepsis. 4. Hyponatremia. 5. Leukopenia. 6. Thrombocytopenia. 7. Chronic anemia. 8. Carotid artery stenosis. 9. Coronary artery disease. 10. Hyperlipidemia. 11. BPH. 12. GERD. MEDICAL COURSE: The patient was followed by Dr. Arizmendi and Dr. Kang while on rehab unit. He was started on some low dose baclofen for increased tone and spastic pain in his left leg. Unfortunately he became lethargic with this, sedated and this was discontinued. He was provided with IV fluids and he had resolution with going back to baseline. He continued on with therapies. He did obtain [place] Medicaid card near discharge, or soon thereafter. His INR was monitored, Coumadin adjusted accordingly. He was seen by Dr. Ordoñez regarding pancytopenia, Dr. Ordoñez did various labs studies. CBC on 08/09 showed WBC 2.4, H&H 11/34, platelet count 106,000. INR on 08/09 was 2.2. His family arranged for him to live in a residential community independent living apartment and they will provide help so that he could manage. Chemistry on 08/09 showed normal electrolytes, BUN and creatinine mildly elevated at 1.39 calcium 9.5, glucose 91. TSH was 0.75 on 08/06, albumin 3.7 on 08/06 and total protein 6.5. UA was negative on 07/18, stool for occult blood was negative. Serum iron was low at 26 and percent saturation low at 9. Dr. Ordoñez recommended follow-up with bone marrow biopsy on an outpatient basis, if his pancytopenia, did not improve. He was afebrile during his stay. His pulse is 63 on 08/09, respirations 20, blood pressure 131/82, O2 sat 97% on room air. Head CT on 07/18 showed no acute intracranial CT findings, generalized cerebellar parenchymal volume loss was noted and moderate to advanced leukoaraiosis, chronic lacunar infarcts in the left basal ganglia were noted. A left ankle X-ray revealed diffuse osseous demineralization without acute abnormalities detected, moderate plantar calcaneal spurring was noted as well. No evidence of acute fracture or malalignment. REHABILITATION COURSE: The patient overall improved. PT notes upon admission, the patient could perform bed mobility with standby assist for transfers with contact guard could ambulate 30 feet with a ro walker with contact guard with a left AFO and could propel a wheelchair 100 feet with modified independence. Upon discharge, the patient could perform bed mobility, and transfers. Standby assist, could ambulate 150 feet with a quad cane with contact guard and left AFO including 10 feet over uneven surfaces like carpet and 50 feet with at least turns at 90 degrees. He is modified independent for wheelchair mobility. Go up and down 12 steps using one handrail with contact guard. OT notes upon admission, he required mod assist for upper body dressing, bathing, toileting, transfers, is max assist for lower body dressing. The patient made good progress and by discharge was completing dressing with min assist for transfers and bathing standby assist eating, grooming with modified independence. He will be discharging to an apartment with his family and other assistance as needed from attendant. Speech therapy notes that upon admission, the patient demonstrated mild oropharyngeal dysphagia, mild cognitive deficits and mild dysarthria. The patient participated in traditional dysphagia exercises, strengthening, overall motor exercises, and functional cognitive tasks for safety problem-solving, the patient met goals placed by the clinician throughout the stay and comprehension, expression, social interaction, problem solving and memory were all at fives or standby assist. DISCHARGE INSTRUCTIONS: The patient will follow-up with his PCP in [place] and hematology on an outpatient basis as needed. Follow-up labs with home health care with report to PCP. Continue current diet. DISCHARGE MEDICATIONS: 1. Folic acid 1 mg p.o. daily, which Dr. Ordoñez recommended along with continuing of ferrous sulfate 325 mg p.o. b.i.d. with meals. 2. The patient was resumed on his home Entresto 24 mg/26 mg 1 tablet p.o. b.i.d. 3. Tylenol strength 1000 mg p.o. q.8 hours p.r.n. pain or fever. 4. Xanax 0.5 mg p.o. at bedtime p.r.n. insomnia. 5. Lipitor 40 mg p.o. at bedtime. 6. Calcium carbonate 750 mg p.o. q.2 h. p.r.n. heartburn. 7. Coreg 6.25 mg p.o. b.i.d. 8. Zyrtec 10 mg p.o. daily. 9. Plavix 75 mg p.o. daily. 10. Flexeril 10 mg p.o. b.i.d. p.r.n. muscle spasms. 11. Pepcid 20 mg p.o. b.i.d. 12. Gabapentin 300 mg p.o. t.i.d. 13. Culturelle 1 capsule p.o. b.i.d. 14. Maalox maximum strength 30 mL p.o. q.4 hours p.r.n. indigestion. 15. Mag-Ox 800 mg p.o. daily. 16. Melatonin 6 mg p.o. at bedtime. 17. Fish oil 1000 mg p.o. daily. 18. MiraLAX 17 grams p.o. daily p.r.n. constipation and qd scheduled. ]' 19. Flomax 0.4 mg p.o. daily. 20. Coumadin 5 mg p.o. q. evening. Follow-up INR with home health with report to PCP. DISCHARGE DIAGNOSES: 1. Rehabilitation, sepsis with UTI. 2. Late effects of stroke with history of cerebrovascular accident with left hemiparesis. 3. Weakness due to sepsis. 4. Acute kidney injury, resolved. 5. History of cerebrovascular accident with dysphagia. 6. Hyponatremia, treated. Improving. 7. Pancytopenia, stable, will have follow-up on outpatient. 8. Hypertension with chronic kidney disease stage III. 9. GERD, on medication. 10. Anxiety, controlled with medication. 11. Hyperlipidemia, on statin. 12. BPH on Flomax. 13. Insomnia, on medications. 14. Status post carotid artery stents outside facility. 15. Status post coronary artery stent at outside facility on Plavix. 16. Coronary artery disease, stable on medications. 17. History of PA. 18. Chronic anticoagulation. 19. History of left ventricular thrombus. 20. Intolerance to baclofen causing sedation / lethargy CONDITION AT DISCHARGE: Improved and stable. Job ID: [id number] Dictated Date: 08/20/2016 15:36:40 Sticker Hand Date: 08/22/2016 10:12:40/caroline LUGO
== END 2016-08-09 11:55 | disposition home or self-care (01) | DRG 872 ==
LOC: EDBD 22:05
PROVIDERS: ADMIT Physical Medicine & Rehabilitation; ATTEND Physical Medicine & Rehabilitation
DX: A41.9 Sepsis, unspecified organism (principal); N39.0 Urinary tract infection, site not specified; N17.9 Acute kidney failure, unspecified; R53.1 Weakness; I69.354 Hemiplegia and hemiparesis following cerebral infarction affecting left non-dominant side; I69.322 Dysarthria following cerebral infarction; E87.1 Hypo-osmolality and hyponatremia; I12.9 Hypertensive chronic kidney disease with stage 1 through stage 4 chronic kidney disease, or unspecified chronic kidney disease; N18.3 Chronic kidney disease, stage 3 (moderate); I25.10 Atherosclerotic heart disease of native coronary artery without angina pectoris; K21.9 Gastro-esophageal reflux disease without esophagitis; D61.818 Other pancytopenia; F41.9 Anxiety disorder, unspecified; E78.5 Hyperlipidemia, unspecified; N40.0 Benign prostatic hyperplasia without lower urinary tract symptoms; G47.00 Insomnia, unspecified; I25.2 Old myocardial infarction; Z95.820 Peripheral vascular angioplasty status with implants and grafts; Z95.5 Presence of coronary angioplasty implant and graft
CPT/HCPCS: 36415; 70450; 73610; 80048; 80053; 80069; 81000; 82274; 82607; 82728; 82746; 83540; 83615; 84443; 85007; 85025; 85027; 85045; 85379; 85384; 85610

== ENCOUNTER 2017-04-04 11:17 | Inpatient (IN) | payer MEDICAID ==
[~2017-04-04] VITALS: Ht 182.9 cm; Wt 66.7 kg
[~2017-04-04 11:17] MED LIST: ACET-2267 PO; ALPR0.5T PO; ATOR40TA70 PO; BUTA1TAB9 PO; CARV6.25 PO; CEFD300C3 PO; CETI10TA20 PO; CLOP75TA69 PO; CYCL10TA9 PO; DOCU-143 PO; FAMO20TA3 PO; FERR-74 PO; FOLI1TAB24 PO; GABA-488 PO; LACT1CAP39 PO; MAG355OR17 PO; MAGN400T6 PO; MELA3TAB PO; OMG1KC PO; ONDN4T PO; OXYC-197 PO; POLY17PO6 PO; SACU1TAB PO; TAMS0.4C98 PO; TEMA15CA PO; WARF-48 PO; [UNRECOGNIZED DRUG - CODE] PO
[2017-04-04] MEDS ORDERED: ONDANSETRON 4 MG (ZOFRAN) ORAL DISSOLVE TAB PO PRN (18:00)
[2017-04-04 19:00] VITALS: BP 119/71
[2017-04-04] MEDS: warFARin 3 MG (COUMADIN) TAB PO SCH (20:18)
[2017-04-04] MEDS: FINASTERIDE (PROSCAR) 5 MG TAB PO SCH (20:18)
[2017-04-04] MEDS: CIPROFLOXACIN 500 MG (CIPRO) TABLET PO SCH (20:18)
[2017-04-04] MEDS: OLANZapine 5 MG (ZyPREXA) TAB PO SCH (20:18)
[2017-04-04] MEDS: VALSARTAN 80 MG (DIOVAN) TAB PO SCH (20:18)
[2017-04-04] MEDS: FAMOTIDINE 20 MG (PEPCID) TABLET PO SCH (20:24)
[2017-04-04] MEDS ORDERED: CARVEDILOL 6.25 MG (COREG) TAB PO SCH (21:00)
[2017-04-04] MEDS: LORATADINE (CLARITIN) 10 MG TAB PO SCH (21:50)
[2017-04-05 05:29] LABS: BASOPHILS % (AUTO) 0 % (0-10); EOSINOPHILS # (AUTO) 0.1 10^3/uL (0.0-0.3); EOSINOPHILS % (AUTO) 3 % (0-10); LYMPHOCYTES # (AUTO) 0.7 X 10^3 (1.0-4.0); LYMPHOCYTES % (AUTO) 19 % (12-44); MEAN CORPUSCULAR HEMOGLOBIN 26 PG (25-34); MEAN CORPUSCULAR HGB CONC 33 G/DL (32-36); MEAN CORPUSCULAR VOLUME 78 FL (80-99); MEAN PLATELET VOLUME 9.8 FL (7.4-10.4); MONOCYTES # (AUTO) 0.6 X 10^3 (0.0-1.0); MONOCYTES % (AUTO) 15 % (0-12); NEUTROPHILS # (AUTO) 2.5 X 10^3 (1.8-7.8); NEUTROPHILS % (AUTO) 64 % (42-75); PLATELET COUNT 143 10^3/uL (130-400); RED BLOOD COUNT 4.85 10^6/uL (4.35-5.85); RED CELL DISTRIBUTION WIDTH 16.4 % (10.0-14.5); WHITE BLOOD COUNT 3.8 10^3/uL (4.3-11.0)
[2017-04-05 05:31] VITALS: BP 120/73
[2017-04-05 05:39] LABS: INR 1.9 (0.8-1.4); PROTHROMBIN TIME PATIENT 21.9 SEC (12.2-14.7)
[2017-04-05 05:53] LABS: CALCIUM 9.2 MG/DL (8.5-10.1); CREATININE SERUM 1.35 MG/DL (0.60-1.30); POTASSIUM 3.8 MMOL/L (3.6-5.0)
--- NOTE | 2017-04-05 07:58 | Occupational Therapy Eval ---
OT Evaluation-General/PLF Medical Diagnosis Admission Date Apr 04, 2017 at 17:50 Medical Diagnosis: CVA Onset Date: Apr 04, 2017 Therapy Diagnosis Therapy Diagnosis: decreased self care skills Height/Weight Height (Feet): 6 Height (Inches): 0.00 Weight (Pounds): 147 Weight (Ounces): 0.6 Precautions Precautions/Isolations: Fall Prevention, Standard Precautions Safety Interventions: None Referral Physician: Deedee Medical History Pertinent Medical History: CAD, CVA, GERD, [place] Additional Medical History chronic anemia, carotid artery stenosis, hyperlipidemia, BPH, Reviewed History: Yes Social History Home: Apartment (Independent living) Current Living Status: Alone Entry Into Home: Level Entry ADL-Prior Level of Function ADL PLOF Comments Pt states prior to hospitalization he was living in independent living apartment. Had aide 3x/wk to assist with bathing and dressing. Pt states he uses w/c, only walks with ro-walker when aide is present. Prepares simple meals in microwave at w/c level. Gets meals on wheels 3 days/week. Sleep in a recliner secondary to difficulty getting into bed. DME/Equipment: Bath Chair, Bedside Commode, Grab Bars, Shower DME/Equipment Comments manual w/c, ro walker Drive Self: No OT Current Status Subjective Pt sitting in w/c, agrees to treatment. No c/o pain. Mental Status/Objective Patient Orientation: Person, Place, Situation Current Glasses/Contacts: Yes Hearing Aids: Yes (right only) Dentures/Partials: Yes Hand Dominance: Right Upper Extremity ROM Right UE grossly WFL. Left UE: Pt has minimal active movement in shoulder flexion, no other active movement not. Pt has poor PROM. Fingers are in flexed position and unable to extend. Upper Extremity Coordination Impaired left UE Upper Extremity Strength Right UE grossly 4/5 Left UE impaired ADL-Treatment ADL-Current Pt sitting in w/c finishing breakfast. Pt states he had assist opening containers, but was then able to feed himself. Pt requests to use restroom. Pt able to propel self to restroom. Transfer to toilet with minimal assistance using grab bar for balance and safety. Pt able to pull pants down/up with minimal assistance for balance. Pt able to complete toileting hygiene with SBA. Pt sitting in w/c with needs met after session. Functional [place] Measure 0=Not Assessed/NA 4=Minimal Assistance 1=Total Assistance 5=Supervision or Setup 2=Maximal Assistance 6=Modified [place] 3=Moderate Assistance 7=Complete IndependenceIRFPAI Quality Coding Scale 6 Independent with activity with or without an assistive device 5 Patient requires set up or clean up by helper. Patient completes activity by themselves 4 Supervision or touching assist (CGA). [place] provide cues , steadying assist 3 The helper provides less than half the effort to complete the activity 2 The helper provides more than half the effort to complete the activity 1 Dependent. The helper does all the effort to complete an activity 7 Patient refused to complete or attempt activity 9 The patient did not perform the activity before the current illness or injury 88 Not attempted due to Medical conditions or safety concerns Eating (FIM): 5 Eating (QC): 5 Toileting (FIM): 3 Toileting Hygiene (QC): 3 Toilet/Commode Transfer (FIM): 4 Toilet Transfer (QC): 3 Education OT Patient Education: Rehab process Teaching Recipient: Patient Teaching Methods: Discussion Response to Teaching: Verbalize Understanding OT Short Term Goals Short Term Goals Time Frame: Apr 12, 2017 Bathing(FIM): 4 Upper Body Dressing(FIM): 4 Lower Body Dressing(FIM): 4 Toileting(FIM): 4 Shower Transfer(FIM): 4 Additional Short Term Goals: 1-Demonstrate ADL Tasks, 2-Verbalize Understanding , 3-ImproveStrength/Madalyn 1=Demonstrate adherence to instructed precautions during ADL tasks. 2=Patient will verbalize/demonstrate understanding of assistive devices/ modifications for ADL. 3=Patient will improve strength/tolerance for activity to enable patient to perform ADL's. OT Paralegal Instructor Goals Paralegal Instructor Goals Time Frame: Apr 26, 2017 Eating (FIM): 6 Eating (QC): 6 Groomin Oral Hygiene (QC): 6 Bathing(FIM): 5 Shower/Bathe Self (QC): 5 Upper Body Dressing(FIM): 5 Upper Body Dressing (QC): 5 Lower Body Dressing(FIM): 5 Lower Body Dressing (QC): 4 On/Off Footwear (QC): 5 Toileting(FIM): 6 Toileting Hygiene (QC): 6 Toilet/Commode Transfer(FIM): 6 Toilet/Commode Transfer (QC): 6 Shower Transfer(FIM): 5 Additional Goals: 1-Demonstrate ADL Tasks, 2-Verbalize Understanding, 3- ImproveStrength/Madalyn 1=Demonstrate adherence to instructed precautions during ADL tasks. 2=Patient will verbalize/demonstrate understanding of assistive devices/ modifications for ADL. 3=Patient will improve strength/tolerance for activity to enable patient to perform ADL's. Goals established to promote increased functional independence and allow safe discharge home. OT Education/Plan Problem List/Assessment Assessment: Decreased Activ Tolerance, Decreased UE Strength, Dependent Transfers, Impaired Coordination, Impaired Funct Balance, Impaired I ADL's, Impaired Self-Care Skills, Restricted Funct UE ROM Pt to benefit from skilled OT intervention for ADL training, transfers, strengthening, and home safety education to maximize level of function and allow safe discharge home. Discharge Recommendations Plan/Recommendations: Continue POC Treatment Plan/Plan of Care Treatment,Training & Education: Yes Patient would benefit from OT for education, treatment and training to promote independence in ADL's, mobility, safety and/or upper extremity function for ADL' s. Plan of Care: ADL Retraining, Functional Mobility, Group Exercise/Act as Ind, UE Funct Exercise/Act Treatment Duration: Apr 26, 2017 Frequency: At least 5 of 7 days/Wk (IRF) Estimated Hrs Per Day: 1.5 hours per day Agreement: Yes Rehab Potential: Good Time/GCodes Start Time: 07:18 Stop Time: 07:48 Total Time Billed (hr/min): 30 Billed Treatment Time 1 visit, EVL(15minutes), ADL(15minutes) RASHIDA ORTIZ OT Apr 05, 2017 07:58
--- NOTE | 2017-04-05 08:28 | PM&R Post Admission Assessment ---
Post Admission Physician Asses The preadmission screen agrees with the post admission assessment that the patient is a good candidate for inpatient rehabilitation. The patient will have a comprehensive program of inpatient rehabilitation with a goal of maximizing level of functional independence prior to discharge home with family. The patient will have PT/OT ninety minutes per day, each discipline, five days a week for gait, strengthening, conditioning, balance, ADLs, any patient/family/caregiver training as necessary. Speech therapy to do cognitive assessment and treat as indicated. Rehabilitation nursing to assist with bowel, bladder, skin, wound care, medication administration, pain management. Machinist Brake to assist with discharge planning, community reentry. SCD's and Coumadin for DVT prophylaxis. He appears to be well motivated to participate in three hours of therapy a day. He should be able to tolerate three hours of therapy a day from a medical standpoint. He should benefit from the three hours of therapy a day. He has a reasonable discharge plan, reasonable discharge rehabilitation goals and a supportive family. He has various comorbidities that need to be closely monitored with medications and treatments adjusted on a daily basis as needed. These include: UTI Hyponatremia Barriers to discharge for this patient who had been fairly independent prior to this are for him to be modified independent to supervision for ADLs and mobility skills prior to discharge home with family,and HHC so as to lessen the burden of the caregivers. Risks for this patient include: 1. Fall 2. Fracture 3. DVT 4. Pulmonary embolism 5. Wound infection 6. Skin breakdown 7. Contractures 8. Poorly controlled pain 9. Urinary retention 10. Recurrent UTI 11. Respiratory infection 12. Aspiration 13 Subtherapeutic INR 14. Worsening Hyponatremia Estimated Length of Stay: 14 days Prognosis: Rehab prognosis appears good for goal of discharge home with family and HHC modified independent to supervision for ADLs and mobility skills. GRAEME GRESHAM MD Apr 05, 2017 08:27
[2017-04-05] MEDS ORDERED: TAMSULOSIN 0.4 MG (FLOMAX) CAP PO SCH (09:00)
[2017-04-05] MEDS: FAMOTIDINE 20 MG (PEPCID) TABLET PO SCH ×2 (09:18→20:40)
[2017-04-05] MEDS: DOCUSATE SODIUM 100 MG (COLACE) CAP PO SCH (09:18)
[2017-04-05] MEDS: ATORVASTATIN 40 MG (LIPITOR) TABLET PO SCH (09:18)
[2017-04-05] MEDS: CLOPIDOGREL 75 MG (PLAVIX) TABLET PO SCH (09:18)
[2017-04-05] MEDS: ALFUZOSIN HCL 10 MG TAB (UROXATRAL) PO SCH (09:18)
[2017-04-05] MEDS: MAGNESIUM OXIDE (MAG-OX)400 MG TAB PO SCH (09:18)
[2017-04-05] MEDS: CIPROFLOXACIN 500 MG (CIPRO) TABLET PO SCH ×2 (09:18→20:39)
[2017-04-05] MEDS: CARVEDILOL 6.25 MG (COREG) TAB PO SCH ×2 (09:18→17:52)
[2017-04-05 09:19] VITALS: BP 131/77
[2017-04-05] MEDS: ACETAMINOPHEN 325 MG TABLET/CAPLET (TYLENOL) PO PRN ×2 (09:25→20:36)
--- NOTE | 2017-04-05 09:41 | Occupational Ther Daily Note ---
OT Current Status-Daily Note Subjective Pt alert, sitting in recliner. Pt agreed to therapy. Pt c/o pain at top and backside of head, nrsg in room and administered medicine. Mental Status/Objective Patient Orientation: Person, Place, Time, Situation Functional [place] Measure 0=Not Assessed/NA 4=Minimal Assistance 1=Total Assistance 5=Supervision or Setup 2=Maximal Assistance 6=Modified [place] 3=Moderate Assistance 7=Complete [place] ADL-Treatment Functional [place] Measure 0=Not Assessed/NA 4=Minimal Assistance 1=Total Assistance 5=Supervision or Setup 2=Maximal Assistance 6=Modified [place] 3=Moderate Assistance 7=Complete IndependenceIRFPAI Quality Coding Scale 6 Independent with activity with or without an assistive device 5 Patient requires set up or clean up by helper. Patient completes activity by themselves 4 Supervision or touching assist (CGA). [place] provide cues , steadying assist 3 The helper provides less than half the effort to complete the activity 2 The helper provides more than half the effort to complete the activity 1 Dependent. The helper does all the effort to complete an activity 7 Patient refused to complete or attempt activity 9 The patient did not perform the activity before the current illness or injury 88 Not attempted due to Medical conditions or safety concerns Grooming (FIM): 6 (Sitting in w/c, pt is able to complete own grooming at sink. ) Oral Hygiene (QC): 6 Bathing (FIM): 4 (Using grabbar, shower bench and hand held shower pt is able to complete bathing. Pt requires CGA to stand then assist to dry buttocks. Verbal cues for L foot placement to increase stability.) Bathing Location: L Arm, R Arm, L Upper Leg, R Upper Leg, L Lower Leg ( including foot), R Lower Leg (including foot), Chest, Abdomen, Buttocks, Perineal Area Shower/Bathe Self (QC): 3 Upper Body (FIM): 4 (Initial assist to place L UE into shirt sleeve then pt able to complete.) Upper Body Dressing (QC): 4 Lower Body Dressing (FIM): 3 (Min A to stand then CGA for balance as pt hikes pants over hips. Assist to don/doff over L foot, pt completes R foot. If pt's pants fall to ankles pt requires assistance to pull up legs.) Lower Body Dressing (QC): 2 On/Off Footwear (QC): 2 (Doffs R sock by self then assist to doff L sock and don socks and shoes.) Toileting (FIM): 4 (Min A in standing for safety as pt manipulated clothing. Sitting to cleanse self.) Toileting Hygiene (QC): 4 Transfers (B, C, W/C) (FIM): 4 (CGA using either grabbars or ro-walker from surface to surface.) Toilet/Commode Transfer (FIM): 4 (CGA using grabbars and elevated toilet seat with arms from w/c.) Toilet Transfer (QC): 4 Shower Transfer(FIM): 4 (CGA using w/c, grabbars and shower bench to transfer into shower.) After therapy, pt sitting in w/c with nrsg applying bandages to L foot. Call light/phone in reach. All needs met in room. OT Short Term Goals Short Term Goals Time Frame: Apr 12, 2017 Bathing(FIM): 4 Upper Body Dressing(FIM): 4 Lower Body Dressing(FIM): 4 Toileting(FIM): 4 Shower Transfer(FIM): 4 Additional Short Term Goals: 1-Demonstrate ADL Tasks, 2-Verbalize Understanding , 3-ImproveStrength/Madalyn 1=Demonstrate adherence to instructed precautions during ADL tasks. 2=Patient will verbalize/demonstrate understanding of assistive devices/ modifications for ADL. 3=Patient will improve strength/tolerance for activity to enable patient to perform ADL's. OT Detention Goals Qa Internship Goals Time Frame: Apr 26, 2017 Eating (FIM): 6 Eating (QC): 6 Groomin Oral Hygiene (QC): 6 Bathing(FIM): 5 Shower/Bathe Self (QC): 5 Upper Body Dressing(FIM): 5 Upper Body Dressing (QC): 5 Lower Body Dressing(FIM): 5 Lower Body Dressing (QC): 4 On/Off Footwear (QC): 5 Toileting(FIM): 6 Toileting Hygiene (QC): 6 Toilet/Commode Transfer(FIM): 6 Toilet/Commode Transfer (QC): 6 Shower Transfer(FIM): 5 Additional Goals: 1-Demonstrate ADL Tasks, 2-Verbalize Understanding, 3- ImproveStrength/Madalyn 1=Demonstrate adherence to instructed precautions during ADL tasks. 2=Patient will verbalize/demonstrate understanding of assistive devices/ modifications for ADL. 3=Patient will improve strength/tolerance for activity to enable patient to perform ADL's. OT Education/Plan Problem List/Assessment Pt to benefit from skilled OT intervention for ADL training, transfers, strengthening, and home safety education to maximize level of function and allow safe discharge home. Discharge Recommendations Plan/Recommendations: Continue POC Treatment Plan/Plan of Care Patient would benefit from OT for education, treatment and training to promote independence in ADL's, mobility, safety and/or upper extremity function for ADL' s. Plan of Care: ADL Retraining, Functional Mobility, Group Exercise/Act as Ind, UE Funct Exercise/Act Treatment Duration: Apr 26, 2017 Frequency: At least 5 of 7 days/Wk (IRF) Estimated Hrs Per Day: 1.5 hours per day Agreement: Yes Rehab Potential: Good Time/GCodes Start Time: 09:25 Stop Time: 10:25 Total Time Billed (hr/min): 60 Billed Treatment Time 1 visit-ADL 4 (60 min) TULIO BERGMAN Apr 05, 2017 09:41
--- NOTE | 2017-04-05 11:41 | Physical Therapy Daily Note ---
PT Daily Note-Current Subjective Pt up in wheelchair, agreeable. Upon attempting to ambulate Pt reports "that (L ) leg just won't move" and reports feeling "unbalanced" with standing. Pt has already been seen by PT and OT for shower this AM. Mental Status Patient Orientation: Person, Place, Time, Situation Transfers Functional [place] Measure 0=Not Assessed/NA 4=Minimal Assistance 1=Total Assistance 5=Supervision or Setup 2=Maximal Assistance 6=Modified [place] 3=Moderate Assistance 7=Complete IndependenceIRFPAI Quality Coding Scale 6 Independent with activity with or without an assistive device 5 Patient requires set up or clean up by helper. Patient completes activity by themselves 4 Supervision or touching assist (CGA). [place] provide cues , steadying assist 3 The helper provides less than half the effort to complete the activity 2 The helper provides more than half the effort to complete the activity 1 Dependent. The helper does all the effort to complete an activity 7 Patient refused to complete or attempt activity 9 The patient did not perform the activity before the current illness or injury 88 Not attempted due to Medical conditions or safety concerns Sit to/from Stand: 4 Weight Bearing Right Lower Extremity: Right Full Weight Bearing Left Lower Extremity: Left Full Weight Bearing Gait Training Does the Patient Walk?: Yes Gait (FIM): 1 Distance (FIM): 0=does not occure Gait Level of Assist: 2 Gait Persons Needed: 1 Gait Assistive Device: Walker Donnie Attempted multiple gait trials. Pt moved sit<->stand with min A x 1. Off balance , leaning to (R) upon standing with min A x 1 and VCS to correct. Pt attempted to ambulate but advanced (R) LE only, unable to advance (L). Max VCS for safety as Pt continued to attempt to advance (R) LE without advancing (L), literally turning in a tling[place] & ha[place]. Mod-max A x 1 for standing balance at times. Multiple gait trials unsuccessful. Up in [facility] after treatment for lunch and agreeable to return to bed to rest after lunch. Wheelchair Training Does the Pt Use a Wheelchair?: Yes Wheelchair (FIM): 5 Wheelchair Distance: 3=150 ft Distance: 150 Wheelchair Level of Assist: 5 Wheel 50 ft with 2 turns (QC): 4 Wheel 150 ft (QC): 4 Type of Wheelchair: Manual Occasionally running into items on (L) Treatments Transfer training, attempted initiation of gait. Assessment Current Status: Poor Progress Pt tolerated poor. Unable to initiate gait this second trial this date; most likely fatigued from previous PT session and shower with OT. Nursing aware of difficulty with transfers, gait initiation this session. PT Plan Problem List Problem List: Activity Tolerance, Functional Strength, Safety, Balance, Gait, Transfer, Bed Mobility Treatment/Plan Treatment Plan: Continue Plan of Care Treatment Plan: Bed Mobility, Education, Functional Activity Madalyn, Functional Strength, Group Therapy, Gait, Safety, Therapeutic Exercise, Transfers Treatment Duration: Apr 26, 2017 Frequency: At least 5 of 7 days/Wk (IRF) Estimated Hrs Per Day: 1.5 hours per day Patient and/or Family Agrees t: Yes Safety Risks/Education Patient Education: Gait Training Teaching Recipient: Patient Teaching Methods: Discussion Response to Teaching: Reinforcement Needed Discharge Recommendations Barriers to Progress fatigue Time/GCodes Time In: 1110 Time Out: 1133 Total Billed Treatment Time: 23 Total Billed Treatment 1, FA x 23' G Codes Necessary: OSBALDO Funes DPT Apr 05, 2017 11:41
--- NOTE | 2017-04-05 12:53 | Consultation-Cardiology ---
HPI-Cardiology Cardiology Consultation: Date of Consultation 04/05/17 Date of Admission Attending Physician Graeme Kang MD Admitting Physician Valentin Roth MD Consulting Physician Amaya NUGENT MD HPI: Time Seen by Provider: 12:47 Chief Complaint: Pericardial effusion, shortness of breath This is a 61-year-old gentleman from [facility]. 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 He is followed by a certified dialysis technician at [facility] in [place]. His recent admission was due to diarrhea and significant weakness and possible dehydration. His been transferred for inpatient rehabilitation to our hospital. According to the patient pericardial effusion was found in the previous hospital however repeat echocardiogram before discharge showed significant resolution. He complains of mild shortness of breath but denies any other cardiac symptoms including chest pain, syncope, near syncope, lower extremity swelling. Review of Systems-Cardiology Review of Systems Constitutional: No As described under HPI, No no symptoms reported, No chills, No fever, No lightheadedness, malaise, tiredness, No weight loss, No weight gain , No other Eyes: No As described under HPI, No no symptoms reported, No blindness, No blurred vision, No contact lenses, No drainage, No decreased acuity, No foreign body sensation, No glasses, No inflammation, No pain, No photophobia, No previous injury, No shadows, No tunnel vision, No other, No vision change Ears/Nose/Throat: No As described under HPI, No no symptoms reported, No chronic hearing loss, No epistaxis, No ear discharge, No ear pain, No loose teeth, No mouth pain, No mouth swelling, No nasal drainage, No nose pain, No recent hearing loss, No throat pain, No throat swelling, No ulcerations, No other Respiratory: No no symptoms reported, No As described under HPI, No cough, No orthopnea, shortness of breath, No SOB with excertion, No SOB at rest, No stridor, No wheezing, No other Cardiovascular: No no symptoms reported, No As described under HPI, No chest pain, No edema, No irregular heart rate, No lightheadedness, No palpitations, No syncope, No other Gastrointestinal: No no symptoms reported, No As described under HPI, No abdomen distended, No abdominal pain, No blood streaked bowels, No constipation , No diarrhea, No difficulty swallowing, No nausea, No poor appetite, No poor fluid intake, No rectal bleeding, No vomiting, No other, No nausea/vomiting/ diarrhea, No stool coloration changes Genitourinary: No no symptoms reported, No As described under HPI, No burning, No dysuria, No discharge, No frequency, No flank pain, No hematuria, No incontinence, No pain, No urgency, No other, No urine frequency changes, No urine coloration changes Musculoskeletal: No no symptoms reported, No As describe under HPI, No back pain, No gout, No joint pain, No joint swelling, No muscle pain, No muscle stiffness, No neck pain, No other Skin: No no symptoms reported, No As described under HPI, No change in color, No change in hair/nails, No dryness, No lesions, No lumps, No rash, No other, No skin related problems, No ulcerations, No rash on exposed areas, No ulcerations on exposed areas Psychiatric/Neurological: No no symptoms reported, No As described under HPI, No anxiety, No depression, No emotional problems, No headache, No numbness, No pre-existing deficit, No seizure, No tingling, No tremors, No weakness, No other , No focal weakness, No syncope Hematologic: No no symptoms reported, No As described under HPI, No anemia, No blood clots, No easy bleeding, No easy bruising, No swollen glands, No other, No bleeding abnormalities PDR-Szseeb-Zzpvip Hx Patient Social History Alcohol Use: Denies Use Recreational Drug Use: Yes (before my stroke-"weed"") Smoking Status: Former Smoker Type Used: Cigarettes Recent Foreign Travel: No Recent Infectious Disease Expo: No Hospitalization with Isolation: Denies Physical Abuse Screen: No Sexual Abuse: No Immunizations Up To Date Date of Influenza Vaccine: Apr 02, 2017 Past Medical History PMH As described under Assessment. Family Medical History Family History: Colon cancer 19 FATHER FH: multiple myeloma FH: multiple sclerosis Allergies and Home Medications Allergies Coded Allergies: morphine (Verified Allergy, Unknown, 04/04/17) baclofen (Verified Adverse Reaction, Severe, 07/21/16) Patient reports having severe reactions to Baclofen in the past, Home Medications Acetaminophen 500 Mg Tablet, 1,000 MG PO Q8H PRN for PAIN/FEVER, (Reported) Alprazolam 0.5 Mg Tablet, 0.5 MG PO HS PRN for SLEEP, (Reported) Atorvastatin Calcium 40 Mg Tablet, 40 MG PO HS, (Reported) Calcium Carbonate 300 Mg Tab.chew, 750 MG PO Q2H PRN for HEARTBURN, (Reported) Carvedilol 6.25 Mg Tablet, 6.25 MG PO BID, (Reported) Cetirizine HCl 10 Mg Tablet, 10 MG PO DAILY, (Reported) Clopidogrel Bisulfate 75 Mg Tablet, 75 MG PO DAILY, (Reported) Cyclobenzaprine HCl 10 Mg Tablet, 10 MG PO BID PRN for MUSCLE SPASMS, (Reported) Famotidine 20 Mg Tablet, 20 MG PO BID, (Reported) Ferrous Sulfate 325 Mg Tablet, 325 MG PO BID WITH MEALS, (Reported) Folic Acid 1 Mg Tablet, 1 MG PO DAILY, #30 Prescribed by: GRAEME KANG on 08/09/16 1051 Gabapentin 300 Mg Capsule, 300 MG PO TID, (Reported) Lactobacillus Rhamnosus GG 1 Each Capsule, 1 CAP PO BID, (Reported) Mag Hydrox/Al Hydrox/Simeth 355 Ml Oral.susp, 30 ML PO Q4H PRN for INDIGESTION, (Reported) Magnesium Oxide 400 Mg Tablet, 800 MG PO DAILY, (Reported) Melatonin 3 Mg Tablet, 6 MG PO HS, (Reported) Harmony 3 Polyunsat Fatty Acids 1,000 Mg Cap, 1,000 MG PO DAILY, (Reported) Polyethylene Glycol 3350 17 Gm Powd.pack, 17 GM PO DAILY PRN for CONSTIPATION, ( Reported) Polyethylene Glycol 3350 17 Gm Powd.pack, 17 GM PO DAILY, (Reported) Sacubitril/Valsartan 1 Each Tablet, 1 EACH PO BID, #60 Prescribed by: GRAEME KANG on 08/08/16 1748 Tamsulosin HCl 0.4 Mg Cap, 0.4 MG PO DAILY, (Reported) Warfarin Sodium 5 Mg Tablet, 5 MG PO 1800, (Reported) Physical Exam-Cardiology Physical Exam Vital Signs/I&O Vital Sign - Last 12Hours 04/05/17 04/05/17 04/05/17 05:31 09:00 09:19 Temp 99.0 Pulse 84 97 Resp 18 B/P (MAP) 120/73 131/77 Pulse Ox 96 O2 Delivery Room Air Room Air Capillary Refill : Constitutional: No appears stated age, No AAO x 3, No apparent distress, No PERRL, No well-developed, No well-nourished, No other HEENT: No PERRL, No normal ENT inspection, No TMs normal, No pharynx normal, No scleral icterus (R), No scleral icterus (L), No pale conjunctivae (R), No pale conjunctivae (L), No photophobia, No TM abnormal (R), No TM abnormal (L), No pharyngeal erythema, No tonsillar exudate, No other, No discharge, No EOMI, No hearing is well preserved, No hard of hearing, No oral hygience is good, No ulceration, No xanthelasmas are seen Neck: No non-tender, No full range of motion, No supple, No normal inspection, No carotid bruit, No limited range of motion, No lymphadenopathy (R), No lymphadenopathy (L), No tender lateral, No tender midline, No thyromegaly, No other, No carotid pulses are 2 + bilaterally, No with good upstrokes Respiratory: No accessory muscle use, No respiratory distress, No chest tender , No chest expansion is symmetric, No chest is bilaterally symmetric, No lungs clear to percussion, No lungs clear to auscultation, No crackles, No rhonchi, No rales, No stridor, No wheezing, No pleural rub, No other Cardiovascular: regular rate-rhythm, No irregularly irregular, No extra beats, No parasternal heave is noted, No JVD, No edema, No bradycardia, No tachycardia , No point of maximal impulse, No cardiac thrills are palpable, S1 and S2, No gallop/S3, No gallop/S4, No diastolic murmur, No systolic murmur, No friction rub, No click, No other Gastrointestinal: No tender, No soft, No round, No distended, No pulsatile mass , No organomegaly, No guarding, No rebound, No tenderness, No hernia, No mass, No audible bowel sounds, No abnormal bowel sounds, No abdominal bruits, No spleenomegaly, No other Rectal: deferred Extremities: No normal range of motion, No non-tender, No normal inspection, No pedal edema, No calf tenderness, No normal capillary refill, No pelvis stable , No calf tenderness, No inflammation, No pedal edema, No slow capillary refill , No swelling, No other, No abrasion, No clubbing, No cyanosis, No ecchymosis, No laceration, No no lower extremity edema bilateral, No significant edema, No tenderness, No wound Neurologic/Psychiatric: alert, normal mood/affect, oriented x 3, motor weakness Skin: No normal color, No warm/dry, No cyanosis, No cool, No diaphoresis, No damp, No ecchymosis, No jaundice, No mottled, No pallor, No rash, No tattoos/ piercings, No ulcerations, No rash on exposed areas, No ulcerations on exposed areas, No other Data Review Labs Laboratory Tests 04/05/17 05:20: White Blood Count 3.8L, Red Blood Count 4.85, Hemoglobin 12.6L, Hematocrit 38L, Mean Corpuscular Volume 78L, Mean Corpuscular Hemoglobin 26, Mean Corpuscular Hemoglobin Concent 33, Red Cell Distribution Width 16.4H, Platelet Count 143, Mean Platelet Volume 9.8, Neutrophils (%) (Auto) 64, Lymphocytes (%) (Auto) 19, Monocytes (%) (Auto) 15H, Eosinophils (%) (Auto) 3, Basophils (%) (Auto) 0, Neutrophils # (Auto) 2.5, Lymphocytes # (Auto) 0.7L, Monocytes # (Auto) 0.6, Eosinophils # (Auto) 0.1, Basophils # (Auto) 0.0, Prothrombin Time 21.9H, INR Comment 1.9H, Sodium Level 131L, Potassium Level 3.8, Chloride Level 100, Carbon Dioxide Level 21, Anion Gap 10, Blood Urea Nitrogen 19H, Creatinine 1.35H , Estimat Glomerular Filtration Rate 54, BUN/Creatinine Ratio 14, Glucose Level 115H, Calcium Level 9.2 A/P-Cardiology Assessment/Admission Diagnosis CVA, CAD, pericardial effusion, cardiomyopathy, atrial fibrillation, CHF, weakness. Plan Weakness: Inpatient rehabilitation. Hyponatremia: Defer to primary team CVA with residual deficit continue on Plavix. Pericardial effusion: Will try to get echocardiograms from the previous hospital. If we're unable to get old records. We'll perform another echocardiogram. CAD: Previous stents. Continue Plavix, statin, beta radha, MARIA G inhibitor. Cardiomyopathy: Get previous echocardiogram. Not in congestive heart failure on examination. Continue above therapy. Atrial fibrillation: Check EKG. Pulse was regular. Continue warfarin. Thank you for your consultation. Please call me if you have any questions. Eboni Nugent MD, FACP, FACC, FSCAI, FHRS, CCDS Interventional Cardiology Cardiac Electrophysiology Vascular Medicine and Endovascular Interventions Clinical Quality Measures DVT/VTE Risk/Contraindication: Risk Factor Score Per Nursin RFS Level Per Nursing on Admit: 4+=Very High Amaya NUGENT MD Apr 05, 2017 12:52 pm
--- NOTE | 2017-04-05 13:00 | Physical Therapy Evaluation ---
PT Evaluation-General Medical Diagnosis Admission Date Apr 04, 2017 at 17:50 Medical Diagnosis: CVA Onset Date: Apr 04, 2017 Therapy Diagnosis Therapy Diagnosis: impaired functional mobility Height/Weight Height (Feet): 6 Height (Inches): 0.00 Weight (Pounds): 147 Weight (Ounces): 0.6 Precautions Precautions/Isolations: Fall Prevention, Standard Precautions Weight Bear Status Right Lower Extremity: Right Full Weight Bearing Left Lower Extremity: Left Full Weight Bearing Referral Physician: Deedee Reason for Referral: Evaluation/Treatment, Strengthening, Gait Medical History Pertinent Medical History: CAD, CVA, GERD, PR Reviewed History: Yes Social History Home: Apartment (Independent living) Current Living Status: Alone Entry Into Home: Level Entry has assist for bathing 3x/wk Prior/Core FIM Prior Level of Function Functional [place] Measure 0=Not Assessed/NA 4=Minimal Assistance 1=Total Assistance 5=Supervision or Setup 2=Maximal Assistance 6=Modified [place] 3=Moderate Assistance 7=Complete [place] Bed Mobility: 6 Transfers (B,C,W/C) (FIM): 6 Gait: 2 Wheelchair Mobility: 6 Primary means of mobility is w/c. Only walks at home with assist of caregivers using a hemiwalker PT Evaluation-Current Subjective Pt reports about 10 days ago he was suffering from extreme constipation. He self medicated with laxatives and reports he over did it. His electrolytes got out of balance and he became weak and unable to care for himself at home. Pt/Family Goals Regain strength and return to his apartment. Objective Patient Orientation: Normal For Age Problem Solving: Good ROM/Strength ROM Lower Extremities left LE knee and hip flexion limited by tone from stroke 1 yr ago R knee flexion contracture of 10 degrees Strenght Lower Extremities left leg not tested secondary tone from previous stroke Right LE grossly 4/5 throughout Integumentary/Posture Bowel Incontinence: No Neuromuscular (Tone, Coordination, Reflexes) extensor tone (L) LE; increases with strain and fatigue Sensory Vision: Wears Glasses Hearing: Functional Hand Dominance: Right Sensation Left Lower Extremity: Impaired Sensation Lower Extremities notes he can feel with the left foot but it is dull Transfers Functional [place] Measure 0=Not Assessed/NA 4=Minimal Assistance 1=Total Assistance 5=Supervision or Setup 2=Maximal Assistance 6=Modified [place] 3=Moderate Assistance 7=Complete IndependenceIRFPAI Quality Coding Scale 6 Independent with activity with or without an assistive device 5 Patient requires set up or clean up by helper. Patient completes activity by themselves 4 Supervision or touching assist (CGA). [place] provide cues , steadying assist 3 The helper provides less than half the effort to complete the activity 2 The helper provides more than half the effort to complete the activity 1 Dependent. The helper does all the effort to complete an activity 7 Patient refused to complete or attempt activity 9 The patient did not perform the activity before the current illness or injury 88 Not attempted due to Medical conditions or safety concerns Transfers (B, C, W/C) (FIM): 3 Scootin Rollin Roll Left to Right (QC): 3 Supine to/from Sit: 3 Sit to/from Stand: 3 bed t/f WC(FIM only if WC use): 3 Sit to Lying (QC): 3 Lying to Sitting/Side of Bed(Q: 3 Sit to Stand (QC): 3 Chair/Jpu-pd-Jxezk Xfer(QC): 3 Car Transfer (QC): 2 requires assistance to raise the left leg into and out of bed as well as needs assist to bring the trunk upright from supine to sit; car transfer needs assist to raise the left leg into the car and to bend the knee through the doorway. Cannot rise from the low ht of a standard car Gait Does the Patient Walk?: Yes Mode of Locomotion: Both Anticipated Mode of Locomotion: Both Gait (FIM): 2 Distance (FIM): 1=up to 49 ft Walk 10 feet (QC): 4 Walk 50 ft with 2 Turns(QC): 88 Walk 150 ft (QC): 88 Walking 10ft/uneven surface-QC: 88 Distance: 48 Gait Level of Assist: 4 Gait Persons Needed: 1 Gait Assistive Device: Walker Donnie Comments/Gait Description uses and AFO on the left, circumducts at the left hip to compensate for extensor tone Wheelchair Training Does the Pt Use a Wheelchair?: Yes Wheelchair (FIM): 5 Wheelchair Distance (FIM): 3=150 ft Distance: 150 Wheelchair Level of Assist: 5 Wheel 50 ft with 2 turns (QC): 6 Wheel 150 ft (QC): 6 Type of Wheelchair: Manual needs assist to manage leg rests at this time as well as assist for uneven surfaces Stairs Stairs (FIM): 2 #of Steps: 4 Level of Assist: 4 1 Step (curb) (QC): 2 4 Steps (QC): 3 12 Steps (QC): 88 If not tested on admit;explain Unable to safely perform 12 steps secondary to fatigue Balance Sitting Static: Good Sitting Dynamic: Good Standing Static: Poor Standing Dynamic: Poor Picking up an Object (QC): 88 Assessment/Needs Pt has good potential to improve strength, balance, and functional mobility. His primary limitation is physical weakness and poor activity tolerance. With fatigue his functional abilities decline and his fall risk increases. he will benefit from physical therapy to promote return to home. Rehab Potential: Good PT Short Term Goals Short Term Goals Time Frame: Apr 12, 2017 Transfers (B,C,W/C) (FIM): 4 Gait (FIM): 4 Distance (FIM): 3=150 ft Gait Assistive Device: Walker Donnie Wheelchair distance (FIM): 3=150 ft Wheelchair Distance: 150 Wheelchair Level of Assist: 6 Stairs (FIM): 3 # of Steps: 12 PT Latent Print Examiner Goals Latent Print Examiner Goals PT Mcc Goals Time Frame: May 02, 2017 Transfers (B,C,W/C) (FIM): 6 Sit to Lying (QC): 6 Lying-Sitting on Side/Bed(QC): 6 Sit to Stand (QC): 6 Rollin Roll Left to Right (QC): 6 Chair/Bnx-uz-Utjxi Xfer(QC): 6 Car Transfer (QC): 4 Does the Patient Walk: Yes Gait (FIM): 4 Gait distance (FIM): 3=150 ft Distance: 150 Walk 10 feet (QC): 4 Walk 10ft-Uneven Surface(QC): 4 Walk 50ft with 2 Turns (QC): 4 Walk 150 ft (QC): 4 Gait Level of Assist: 4 Gait Assistive Device: Walker Donnie Does the Pt use WC or Scooter?: Yes Wheelchair (FIM): 6 Wheelchair distance (FIM): 3=150 ft Distance: 250 Wheelchair Level of Assist: 6 Wheel 50 feet with 2 turns (QC: 6 Stairs (FIM): 4 # of Steps: 12 1 Step (curb) (QC): 3 4 Steps (QC): 3 12 Steps (QC): 3 Stairs Level Of Assist: 4 Picking up an Object (QC): 2 PT Plan Problem List Problem List: Activity Tolerance, Functional Strength, Balance, Gait, Transfer , Bed Mobility Treatment/Plan Treatment Plan: Continue Plan of Care Treatment Plan: Bed Mobility, Education, Functional Activity Madalyn, Functional Strength, Group Therapy, Gait, Safety, Therapeutic Exercise, Transfers Treatment Duration: Apr 26, 2017 Frequency: At least 5 of 7 days/Wk (IRF) Estimated Hrs Per Day: 1.5 hours per day Patient and/or Family Agrees t: Yes Safety Risks/Education Patient Education: Gait Training, Transfer Techniques, Steps Teaching Recipient: Patient Teaching Methods: Demonstration, Discussion Discharge Recommendations Therapy D/C Recommendations: Assisted Living Time/GCodes Time In: 809 Time Out: 917 Total Billed Treatment Time: 68 Total Billed Treatment visit, evaluation high complexity 68 minutes DAYAMI GUADARRAMA PT Apr 05, 2017 13:00
--- NOTE | 2017-04-05 14:17 | History & Physical-Hospitalist ---
HPI History of Present Illness: HPI/Chief Complaint CC: debility following hospital stay HPI: This is a patient that has had multiple hospitalizations following a stroke last year and most recently was hospitalized in [place] and had an ejection fraction of 20 percent and pericardial effusion. He has arrived for rehabilitation due to severe debility. Patient Interview: Pt was experiencing SOB while conversing with me Pt states it has been 14 months since his stroke. Pt had one heart attack afterward. Pt states he had two stents placed at [facility] and March 2016 he had another stent placed, a carotid stent Pt confirms having fluid on his heart and states that the CT scan in [place], [place] showed this Pt states that 10 days ago he had taken laxative, but took too much. Pt states he got sick, vomited, got dehydrated, and his Na+ was low Physical exam stable. Pt was informed that Cardiology will see him Pt states that before staying at [facility] he never really had SOB. Scribed by Letitia Quiroz under the direct supervision of Dr. Kennedy. Source: patient Exam Limitations: no limitations Date Seen 04/05/17 Time Seen by Provider: 12:30 Attending Physician Jeremiah Kang MD PCP Valentin Roth MD Referring Physician Date of Admission Apr 04, 2017 at 17:50 Home Medications & Allergies Home Medications Reviewed patient Home Medication Reconciliation Form Allergies Allergies Coded Allergies morphine (Verified Allergy, Unknown, 04/04/17) baclofen (Verified Adverse Reaction, Severe, 07/21/16) Patient reports having severe reactions to Baclofen in the past, Past Hhzojmy-Vnwqrv-Crpewd Hx Patient Social History Marrital Status: single Employed/Student: retired Alcohol Use: Denies Use Recreational Drug Use: Yes (before my stroke-"weed"") Smoking Status: Former Smoker Former Smoker, Quit: Jan 24, 2016 Type Used: Cigarettes Physical Abuse Screen: No Sexual Abuse: No Recent Foreign Travel: No Contact w/other who traveled: No Recent Hopitalizations: Yes Recent Infectious Disease Expo: No Immunizations Up To Date Date of Influenza Vaccine: Apr 02, 2017 Seasonal Allergies Seasonal Allergies: Yes Surgeries Yes Respiratory Yes COPD Currently Using CPAP: No Currently Using BIPAP: No Cardiovascular Yes (pacemaker) Atrial Fibrillation, High Cholesterol, Hypertension Neurological Yes Stroke Genitourinary Yes (CKD) UTI-Chronic Gastrointestinal Yes Gastroesophageal Reflux, Chronic Constipation, Ulcer Musculoskeletal Yes (CVA left sided weakness/flaccid) Chronic Back Pain Endocrine History of Endocrine Disorders: No HEENT History of HEENT Disorders: Yes (wears glasses) Loss of Vision: Bilateral Hearing Impairment: Denies Cancer No Psychosocial History of Psychiatric Problem: No Integumentary History of Skin or Integumenta: No Blood Transfusions History of Blood Disorders: Yes Adverse Reaction to a Blood Tr: No Family Medical History Family Hx: Colon cancer 19 FATHER FH: multiple myeloma FH: multiple sclerosis Review of Systems Constitutional: see HPI, weakness EENTM: no symptoms reported Respiratory: short of breath Cardiovascular: no symptoms reported Gastrointestinal: no symptoms reported Genitourinary: no symptoms reported Musculoskeletal: back pain Skin: no symptoms reported Psychiatric/Neurological: No Symptoms Reported All Other Systems Reviewed Negative Unless Noted: Yes Physical Exam Physical Exam Vital Signs Vital Sign - Last 12Hours 04/04/17 19:00 Temp 98.1 Pulse 77 Resp 18 B/P (MAP) 119/71 Pulse Ox 99 O2 Delivery Room Air Capillary Refill : General Appearance: No Apparent Distress, WD/WN, Chronically ill, Thin Eyes: Bilateral Eye Normal Inspection, Bilateral Eye PERRL HEENT: PERRL/EOMI, Normal ENT Inspection, Pharynx Normal Neck: Full Range of Motion, Normal Inspection, Non Tender, Supple, Carotid Bruit Respiratory: Chest Non Tender, Lungs Clear, Normal Breath Sounds, No Accessory Muscle Use, No Respiratory Distress Cardiovascular: No Edema, No Gallop, No JVD, No Murmur, Normal Peripheral Pulses, Irregularly Irregular Gastrointestinal: Normal Bowel Sounds, No Organomegaly, No Pulsatile Mass, Non Tender, Soft Back: Normal Inspection, No CVA Tenderness, No Vertebral Tenderness Extremity: Normal Capillary Refill, Normal Inspection, Normal Range of Motion, Non Tender, No Calf Tenderness, No Pedal Edema Neurologic/Psychiatric: Alert, Oriented x3, No Motor/Sensory Deficits, Normal Mood/Affect, Motor Weakness (left HP) Skin: Normal Color, Warm/Dry Lymphatic: No Adenopathy Results Results/Procedures Lab Laboratory Tests 04/05/17 05:20 Assessment/Plan Admission Diagnosis Assessment: Severe debility requiring IRU Prior CVA w/left sided HP AF Pericardial effusion AF on Coumadin Hyponatremia Assessment and Plan Plan: Cardiology consult Monitor pt Monitor BP Bowel regimen Clinical Quality Measures DVT/VTE Risk/Contraindication: Risk Factor Score Per Nursin RFS Level Per Nursing on Admit: 4+=Very High KENNEDY,JOY DO Apr 05, 2017 14:17
[2017-04-05] MEDS: ACET/BUTAL/CAFF (FIORICET) TAB PO PRN (15:09)
[2017-04-05] MEDS: warFARin 3 MG (COUMADIN) TAB PO SCH (17:52)
[2017-04-05] MEDS ORDERED: ALFUZOSIN HCL 10 MG TAB (UROXATRAL) PO SCH (18:00)
[2017-04-05 18:31] VITALS: BP 113/72
[2017-04-05] MEDS: ALPRAZolam 0.5 MG (XANAX) TAB PO PRN (20:36)
[2017-04-05] MEDS: VALSARTAN 80 MG (DIOVAN) TAB PO SCH (20:36)
[2017-04-05] MEDS: FINASTERIDE (PROSCAR) 5 MG TAB PO SCH (20:40)
[2017-04-05] MEDS: OLANZapine 5 MG (ZyPREXA) TAB PO SCH (20:40)
[2017-04-05] MEDS: LORATADINE (CLARITIN) 10 MG TAB PO SCH (20:40)
[2017-04-06] MEDS: ACETAMINOPHEN 325 MG TABLET/CAPLET (TYLENOL) PO PRN (03:41)
[2017-04-06] MEDS: ALPRAZolam 0.5 MG (XANAX) TAB PO PRN (04:02)
[2017-04-06 04:30] VITALS: BP 161/89
[2017-04-06] MEDS ORDERED: NITROGLYCERIN 2% OINT 1 GM UNIT DOSE PACKET ONE (04:32)
[2017-04-06 04:40] VITALS: BP 169/90
[2017-04-06] MEDS ORDERED: ASPIRIN 325 MG (5 GR) TABLET ONE (04:54)
[2017-04-06 05:00] VITALS: BP 178/101
[2017-04-06] MEDS ORDERED: NITROGLYCERIN 2% OINT 1 GM UNIT DOSE PACKET TOP ONE (05:00)
[2017-04-06 05:15] VITALS: BP 153/84
[2017-04-06] MEDS ORDERED: CLOPIDOGREL 75 MG (PLAVIX) TABLET PO ONE (05:15)
[2017-04-06] MEDS ORDERED: ASPIRIN 325 MG (5 GR) TABLET PO ONE (05:15)
[2017-04-06] MEDS ORDERED: CLOPIDOGREL 300 MG (PLAVIX) TABLET PO ONE (05:15)
[2017-04-06 05:30] VITALS: BP 122/74
[2017-04-06] MEDS ORDERED: MIDAZOLAM 5 MG/5 ML (VERSED) VIAL ONE (05:31)
[2017-04-06] MEDS ORDERED: fentaNYL INJECTION 100 MCG/2 ML AMP ONE (05:31)
[2017-04-06 05:33] LABS: INR 1.6 (0.8-1.4); PROTHROMBIN TIME PATIENT 18.8 SEC (12.2-14.7)
[2017-04-07 05:21] LABS: INR 1.7 (0.8-1.4); PROTHROMBIN TIME PATIENT 20.4 SEC (12.2-14.7)
[2017-04-07 13:21] VITALS: BP 126/74
[2017-04-07] MEDS: ACETAMINOPHEN 325 MG TABLET/CAPLET (TYLENOL) PO PRN (13:22)
[2017-04-07] MEDS: MAGNESIUM OXIDE (MAG-OX)400 MG TAB PO SCH (13:24)
[2017-04-07] MEDS: DOCUSATE SODIUM 100 MG (COLACE) CAP PO SCH (13:24)
[2017-04-07] MEDS: ALFUZOSIN HCL 10 MG TAB (UROXATRAL) PO SCH ×2 (13:24→17:58)
[2017-04-07] MEDS: CLOPIDOGREL 75 MG (PLAVIX) TABLET PO SCH ×2 (13:24→17:58)
[2017-04-07] MEDS: CIPROFLOXACIN 500 MG (CIPRO) TABLET PO SCH ×2 (13:24→20:47)
[2017-04-07] MEDS: CARVEDILOL 6.25 MG (COREG) TAB PO SCH (13:25)
[2017-04-07] MEDS: ATORVASTATIN 40 MG (LIPITOR) TABLET PO SCH (13:28)
[2017-04-07] MEDS: FAMOTIDINE 20 MG (PEPCID) TABLET PO SCH ×2 (13:28→20:46)
[2017-04-07] MEDS ORDERED: VALS40TA8 PO (14:46)
[2017-04-07] MEDS ORDERED: FINA5TAB6 PO (14:46)
[2017-04-07] MEDS ORDERED: WARF3TAB6 PO (14:46)
[2017-04-07] MEDS ORDERED: BUTA1TAB9 PO (14:46)
[2017-04-07] MEDS ORDERED: ONDN4T PO (14:46)
[2017-04-07] MEDS ORDERED: TAMS0.4C2 PO (14:46)
[2017-04-07 14:50] VITALS: BP 99/61
--- NOTE | 2017-04-07 15:04 | Occupational Ther Daily Note ---
OT Current Status-Daily Note Subjective Pt has returned from ICU this date. Pt had been transported to ICU on 2016. Pt had c/o increased pain in chest and was transferred to ICU. Orders for therapies to resume. Pt agreed to therapy. No c/o pain at beginning of treatment. Pt did c/o dizziness at end of treatment, nrsg notified. See nrsg notes for vital signs. Mental Status/Objective Patient Orientation: Person, Place, Time, Situation Functional [place] Measure 0=Not Assessed/NA 4=Minimal Assistance 1=Total Assistance 5=Supervision or Setup 2=Maximal Assistance 6=Modified [place] 3=Moderate Assistance 7=Complete [place] ADL-Treatment Pt was able to go from supine to sitting EOB with min A and HOB slightly raised. Pt dressed upper body with min A to initiate shirt sleeve over L UE. Assistance needed don/doff socks/shoes and pants over feet. Min A for balance in standing while pt hiked underwear over hips, assistance to pull pants up legs from ankles then min A for hiking over hips. Pt transferred from EOB to w/ c with min A using ro-walker. Using w/c to transport self into bathroom and sit at sink, pt able to complete own grooming. Pt then became dizzy, reported to nrsg. Pt transferred back to bed to rest. Maintenance Of Way Supervisor in room with pt. Pt sitting on EOB with call light/phone in reach. All needs met in room. Functional [place] Measure 0=Not Assessed/NA 4=Minimal Assistance 1=Total Assistance 5=Supervision or Setup 2=Maximal Assistance 6=Modified [place] 3=Moderate Assistance 7=Complete IndependenceIRFPAI Quality Coding Scale 6 Independent with activity with or without an assistive device 5 Patient requires set up or clean up by helper. Patient completes activity by themselves 4 Supervision or touching assist (CGA). [place] provide cues , steadying assist 3 The helper provides less than half the effort to complete the activity 2 The helper provides more than half the effort to complete the activity 1 Dependent. The helper does all the effort to complete an activity 7 Patient refused to complete or attempt activity 9 The patient did not perform the activity before the current illness or injury 88 Not attempted due to Medical conditions or safety concerns Grooming (FIM): 6 Oral Hygiene (QC): 6 Upper Body (FIM): 4 Upper Body Dressing (QC): 3 Lower Body Dressing (FIM): 3 Lower Body Dressing (QC): 2 On/Off Footwear (QC): 2 Transfers (B, C, W/C) (FIM): 4 OT Short Term Goals Short Term Goals Time Frame: Apr 12, 2017 Bathing(FIM): 4 Upper Body Dressing(FIM): 4 Lower Body Dressing(FIM): 4 Toileting(FIM): 4 Transfers (B,C,W/C) (FIM): 4 Shower Transfer(FIM): 4 Additional Short Term Goals: 1-Demonstrate ADL Tasks, 2-Verbalize Understanding , 3-ImproveStrength/Madalyn 1=Demonstrate adherence to instructed precautions during ADL tasks. 2=Patient will verbalize/demonstrate understanding of assistive devices/ modifications for ADL. 3=Patient will improve strength/tolerance for activity to enable patient to perform ADL's. OT Residential Goals Residential Goals Time Frame: Apr 26, 2017 Eating (FIM): 6 Eating (QC): 6 Groomin Oral Hygiene (QC): 6 Bathing(FIM): 5 Shower/Bathe Self (QC): 5 Upper Body Dressing(FIM): 5 Upper Body Dressing (QC): 5 Lower Body Dressing(FIM): 5 Lower Body Dressing (QC): 4 On/Off Footwear (QC): 5 Toileting(FIM): 6 Toileting Hygiene (QC): 6 Toilet/Commode Transfer(FIM): 6 Toilet/Commode Transfer (QC): 6 Shower Transfer(FIM): 5 Additional Goals: 1-Demonstrate ADL Tasks, 2-Verbalize Understanding, 3- ImproveStrength/Madalyn 1=Demonstrate adherence to instructed precautions during ADL tasks. 2=Patient will verbalize/demonstrate understanding of assistive devices/ modifications for ADL. 3=Patient will improve strength/tolerance for activity to enable patient to perform ADL's. OT Education/Plan Problem List/Assessment Pt to benefit from skilled OT intervention for ADL training, transfers, strengthening, and home safety education to maximize level of function and allow safe discharge home. Discharge Recommendations Plan/Recommendations: Continue POC Treatment Plan/Plan of Care Patient would benefit from OT for education, treatment and training to promote independence in ADL's, mobility, safety and/or upper extremity function for ADL' s. Plan of Care: ADL Retraining, Functional Mobility, Group Exercise/Act as Ind, UE Funct Exercise/Act Treatment Duration: Apr 26, 2017 Frequency: At least 5 of 7 days/Wk (IRF) Estimated Hrs Per Day: 1.5 hours per day Agreement: Yes Rehab Potential: Good Time/GCodes Start Time: 13:50 Stop Time: 14:30 Total Time Billed (hr/min): 40 Billed Treatment Time 1 visit-FA 3 (40 min) TULIO BERGMAN Apr 07, 2017 15:04
--- NOTE | 2017-04-07 15:44 | Physical Therapy Daily Note ---
PT Daily Note-Current Subjective Patient reports his BP is low and he is very fatigued this p.m. Pain Numeric Pain Scale: 0-No Pain Location: No Pain Reported Appearance BP in \59 sit 126/64 (BP did not register initially and required 2 attempts) stand (BP did not register and patient c/o dizziness.) Mental Status Patient Orientation: Normal For Age Transfers Functional [place] Measure 0=Not Assessed/NA 4=Minimal Assistance 1=Total Assistance 5=Supervision or Setup 2=Maximal Assistance 6=Modified [place] 3=Moderate Assistance 7=Complete IndependenceIRFPAI Quality Coding Scale 6 Independent with activity with or without an assistive device 5 Patient requires set up or clean up by helper. Patient completes activity by themselves 4 Supervision or touching assist (CGA). [place] provide cues , steadying assist 3 The helper provides less than half the effort to complete the activity 2 The helper provides more than half the effort to complete the activity 1 Dependent. The helper does all the effort to complete an activity 7 Patient refused to complete or attempt activity 9 The patient did not perform the activity before the current illness or injury 88 Not attempted due to Medical conditions or safety concerns Transfers (B, C, W/C) (FIM): 4 Scootin Rollin Roll Left to Right (QC): 4 Supine to/from Sit: 5 Sit to/from Stand: 4 Sit to Lying (QC): 4 Sit to Stand (QC): 3 Weight Bearing Right Lower Extremity: Right Full Weight Bearing Left Lower Extremity: Left Full Weight Bearing Gait Training Does the Patient Walk?: Yes Gait (FIM): 4 Distance (FIM): 1=up to 49 ft Distance: 15' x 2 Walk 10 feet (QC): 3 Gait Level of Assist: 4 Gait Persons Needed: 1 Gait Assistive Device: Walker Donnie step to gait sequence Exercises Supine Ex: Ankle pumps (PROM left LE), Quad Set, Heel Slides, Straight leg raise Supine Reps: 15 (AAROM left LE) Seated Therapy Exercises: Ankle pumps (PROM left LE), Long arc quads Seated Reps: 25 (AAROM left LE) Assessment Patient tolerated minimal activity this p.m. Patient was transferred to ICU secondary to an acute MD. Heart cath was performed, however, no other intervention was provided. Patient has an EF of 15%. Due to extreme fatigue and recent events, patient is unable to fully and safely participate with therapy on this date. PT to increase activity as tolerated by patient. PT Short Term Goals Short Term Goals Time Frame: Apr 12, 2017 Transfers (B,C,W/C) (FIM): 4 Gait (FIM): 4 Distance (FIM): 3=150 ft Gait Assistive Device: Walker Donnie Wheelchair distance (FIM): 3=150 ft Wheelchair Distance: 150 Wheelchair Level of Assist: 6 Stairs (FIM): 3 # of Steps: 12 PT Intermediate Goals Intermediate Goals PT [place] Goals Time Frame: May 02, 2017 Transfers (B,C,W/C) (FIM): 6 Sit to Lying (QC): 6 Lying-Sitting on Side/Bed(QC): 6 Sit to Stand (QC): 6 Rollin Roll Left to Right (QC): 6 Chair/Iax-ht-Ahoda Xfer(QC): 6 Car Transfer (QC): 4 Does the Patient Walk: Yes Gait (FIM): 4 Gait distance (FIM): 3=150 ft Distance: 150 Walk 10 feet (QC): 4 Walk 10ft-Uneven Surface(QC): 4 Walk 50ft with 2 Turns (QC): 4 Walk 150 ft (QC): 4 Gait Level of Assist: 4 Gait Assistive Device: Walker Donnie Does the Pt use WC or Scooter?: Yes Wheelchair (FIM): 6 Wheelchair distance (FIM): 3=150 ft Distance: 250 Wheelchair Level of Assist: 6 Wheel 50 feet with 2 turns (QC: 6 Stairs (FIM): 4 # of Steps: 12 1 Step (curb) (QC): 3 4 Steps (QC): 3 12 Steps (QC): 3 Stairs Level Of Assist: 4 Picking up an Object (QC): 2 PT Plan Treatment/Plan Treatment Plan: Continue Plan of Care Treatment Plan: Bed Mobility, Education, Functional Activity Madalyn, Functional Strength, Group Therapy, Gait, Safety, Therapeutic Exercise, Transfers Treatment Duration: Apr 26, 2017 Frequency: At least 5 of 7 days/Wk (IRF) Estimated Hrs Per Day: 1.5 hours per day Patient and/or Family Agrees t: Yes Time/GCodes Time In: 1501 Time Out: 1531 Total Billed Treatment Time: 30 Total Billed Treatment 1 visit GT 8 min EX 22 min NATE HARPER PT Apr 07, 2017 15:44
[2017-04-07 17:05] VITALS: BP 108/64
[2017-04-07] MEDS ORDERED: BISACODYL 10 MG SUPP (DULCOLAX) PR NR (17:15)
[2017-04-07] MEDS: ACET/BUTAL/CAFF (FIORICET) TAB PO PRN (17:23)
[2017-04-07] MEDS: VALSARTAN 80 MG (DIOVAN) TAB PO SCH ×2 (20:44→20:46)
[2017-04-07] MEDS: LORATADINE (CLARITIN) 10 MG TAB PO SCH ×2 (20:44→20:46)
[2017-04-07] MEDS: FINASTERIDE (PROSCAR) 5 MG TAB PO SCH ×2 (20:45→20:46)
[2017-04-07] MEDS: OLANZapine 5 MG (ZyPREXA) TAB PO SCH ×2 (20:45→20:47)
[2017-04-07] MEDS: warFARin 3 MG (COUMADIN) TAB PO SCH ×2 (20:53→20:54)
[2017-04-08] MEDS: ACETAMINOPHEN 325 MG TABLET/CAPLET (TYLENOL) PO PRN (05:28)
[2017-04-08 06:00] VITALS: BP 109/73
[2017-04-08 06:17] LABS: INR 1.6 (0.8-1.4); PROTHROMBIN TIME PATIENT 18.7 SEC (12.2-14.7)
[2017-04-08] MEDS: CLOPIDOGREL 75 MG (PLAVIX) TABLET PO SCH (08:05)
[2017-04-08] MEDS: FAMOTIDINE 20 MG (PEPCID) TABLET PO SCH ×2 (08:05→22:03)
[2017-04-08] MEDS: ALFUZOSIN HCL 10 MG TAB (UROXATRAL) PO SCH (08:05)
[2017-04-08] MEDS: CIPROFLOXACIN 500 MG (CIPRO) TABLET PO SCH ×2 (08:05→22:02)
[2017-04-08] MEDS: MAGNESIUM OXIDE (MAG-OX)400 MG TAB PO SCH (08:05)
[2017-04-08] MEDS: DOCUSATE SODIUM 100 MG (COLACE) CAP PO SCH (08:05)
[2017-04-08] MEDS: ATORVASTATIN 40 MG (LIPITOR) TABLET PO SCH (08:05)
[2017-04-08] MEDS: CARVEDILOL 6.25 MG (COREG) TAB PO SCH (08:07)
[2017-04-08 08:08] VITALS: BP 112/72
--- NOTE | 2017-04-08 10:15 | Occupational Ther Daily Note ---
OT Current Status-Daily Note Subjective Pt sitting in w/c, agrees to treatment. Pt reports 3/10 pain in left leg and headache. Mental Status/Objective Functional [place] Measure 0=Not Assessed/NA 4=Minimal Assistance 1=Total Assistance 5=Supervision or Setup 2=Maximal Assistance 6=Modified [place] 3=Moderate Assistance 7=Complete [place] ADL-Treatment Functional [place] Measure 0=Not Assessed/NA 4=Minimal Assistance 1=Total Assistance 5=Supervision or Setup 2=Maximal Assistance 6=Modified [place] 3=Moderate Assistance 7=Complete IndependenceIRFPAI Quality Coding Scale 6 Independent with activity with or without an assistive device 5 Patient requires set up or clean up by helper. Patient completes activity by themselves 4 Supervision or touching assist (CGA). [place] provide cues , steadying assist 3 The helper provides less than half the effort to complete the activity 2 The helper provides more than half the effort to complete the activity 1 Dependent. The helper does all the effort to complete an activity 7 Patient refused to complete or attempt activity 9 The patient did not perform the activity before the current illness or injury 88 Not attempted due to Medical conditions or safety concerns Other Treatment Pt sitting in w/c, states he has already cleaned up and dressed this morning. States he will shower tomorrow. RN is present giving pt medication. Pt's BP is 112/72. Pt performed w/c mobility to therapy gym without assistance. Pt completed tabletop peg activity with right hand with 1# weight in place to increase strength and coordination skills. Pt reports fatigue with activity, but did not require any rest breaks. Graded clothespins with right hand to increase belt dresser/pinch strength. Pt completed putty activity with right hand to increase strength and manipulation skills. Pt able to remove small beads from putty with increased time. Pt returned to room and practiced transfers to increase strength and safety for mobility. Pt transferred w/c <-> EOB x2 trials with minimal assistance to right side. Pt sitting in w/c with needs met after session. OT Short Term Goals Short Term Goals Time Frame: Apr 12, 2017 Bathing(FIM): 4 Upper Body Dressing(FIM): 4 Lower Body Dressing(FIM): 4 Toileting(FIM): 4 Transfers (B,C,W/C) (FIM): 4 Shower Transfer(FIM): 4 Additional Short Term Goals: 1-Demonstrate ADL Tasks, 2-Verbalize Understanding , 3-ImproveStrength/Madalyn 1=Demonstrate adherence to instructed precautions during ADL tasks. 2=Patient will verbalize/demonstrate understanding of assistive devices/ modifications for ADL. 3=Patient will improve strength/tolerance for activity to enable patient to perform ADL's. OT [place] Goals Home Planning Consultant Salesperson Goals Time Frame: Apr 26, 2017 Eating (FIM): 6 Eating (QC): 6 Groomin Oral Hygiene (QC): 6 Bathing(FIM): 5 Shower/Bathe Self (QC): 5 Upper Body Dressing(FIM): 5 Upper Body Dressing (QC): 5 Lower Body Dressing(FIM): 5 Lower Body Dressing (QC): 4 On/Off Footwear (QC): 5 Toileting(FIM): 6 Toileting Hygiene (QC): 6 Toilet/Commode Transfer(FIM): 6 Toilet/Commode Transfer (QC): 6 Shower Transfer(FIM): 5 Additional Goals: 1-Demonstrate ADL Tasks, 2-Verbalize Understanding, 3- ImproveStrength/Madalyn 1=Demonstrate adherence to instructed precautions during ADL tasks. 2=Patient will verbalize/demonstrate understanding of assistive devices/ modifications for ADL. 3=Patient will improve strength/tolerance for activity to enable patient to perform ADL's. OT Education/Plan Problem List/Assessment Pt to benefit from skilled OT intervention for ADL training, transfers, strengthening, and home safety education to maximize level of function and allow safe discharge home. Discharge Recommendations Plan/Recommendations: Continue POC Treatment Plan/Plan of Care Patient would benefit from OT for education, treatment and training to promote independence in ADL's, mobility, safety and/or upper extremity function for ADL' s. Plan of Care: ADL Retraining, Functional Mobility, Group Exercise/Act as Ind, UE Funct Exercise/Act Treatment Duration: Apr 26, 2017 Frequency: At least 5 of 7 days/Wk (IRF) Estimated Hrs Per Day: 1.5 hours per day Agreement: Yes Rehab Potential: Good Time/GCodes Start Time: 08:00 Stop Time: 09:00 Total Time Billed (hr/min): 60 Billed Treatment Time 1 visit, EXx3(45minutes), FA(15minutes) RASHIDA ORTIZ OT Apr 08, 2017 10:15
--- NOTE | 2017-04-08 10:55 | Physical Therapy Daily Note ---
PT Daily Note-Current Subjective Patient in wheelchair pre tx, agrees to PT, has no complaints of pain but states he has muscle spasms in his left arm and leg. Appearance Patient in wheelchair at bedside post tx with nurse call, phone, tray, all needs met. Mental Status Patient Orientation: Normal For Age Transfers Functional [place] Measure 0=Not Assessed/NA 4=Minimal Assistance 1=Total Assistance 5=Supervision or Setup 2=Maximal Assistance 6=Modified [place] 3=Moderate Assistance 7=Complete IndependenceIRFPAI Quality Coding Scale 6 Independent with activity with or without an assistive device 5 Patient requires set up or clean up by helper. Patient completes activity by themselves 4 Supervision or touching assist (CGA). [place] provide cues , steadying assist 3 The helper provides less than half the effort to complete the activity 2 The helper provides more than half the effort to complete the activity 1 Dependent. The helper does all the effort to complete an activity 7 Patient refused to complete or attempt activity 9 The patient did not perform the activity before the current illness or injury 88 Not attempted due to Medical conditions or safety concerns Transfers (B, C, W/C) (FIM): 4 Sit to/from Stand: 4 CGA for sit to stand, good safety awareness and he always reaches back for the armrest when sitting Weight Bearing Right Lower Extremity: Right Full Weight Bearing Left Lower Extremity: Left Full Weight Bearing Gait Training Gait (FIM): 1 Distance: 20'x5 Gait Level of Assist: 4 Gait Persons Needed: 1 Gait Assistive Device: Walker Donnie CGA, Patient does not really step through with right leg very much but balance is good, poor endurance Wheelchair Training Does the Pt Use a Wheelchair?: Yes Wheelchair (FIM): 6 Distance: 200'x2 Type of Wheelchair: Manual Exercises NuStep Minutes: 15 NuStep Workload: 6 Treatments transfers, wheelchair mobility, ambulation, functional strengthening Assessment Current Status: Good Progress improving endurance PT Short Term Goals Short Term Goals Time Frame: Apr 12, 2017 Transfers (B,C,W/C) (FIM): 4 Gait (FIM): 4 Distance (FIM): 3=150 ft Gait Assistive Device: Walker Donnie Wheelchair distance (FIM): 3=150 ft Wheelchair Distance: 150 Wheelchair Level of Assist: 6 Stairs (FIM): 3 # of Steps: 12 PT Wireless Watcher Goals Wireless Watcher Goals PT Fdc Goals Time Frame: May 02, 2017 Transfers (B,C,W/C) (FIM): 6 Sit to Lying (QC): 6 Lying-Sitting on Side/Bed(QC): 6 Sit to Stand (QC): 6 Rollin Roll Left to Right (QC): 6 Chair/Puf-hi-Geqwj Xfer(QC): 6 Car Transfer (QC): 4 Does the Patient Walk: Yes Gait (FIM): 4 Gait distance (FIM): 3=150 ft Distance: 150 Walk 10 feet (QC): 4 Walk 10ft-Uneven Surface(QC): 4 Walk 50ft with 2 Turns (QC): 4 Walk 150 ft (QC): 4 Gait Level of Assist: 4 Gait Assistive Device: Walker Donnie Does the Pt use WC or Scooter?: Yes Wheelchair (FIM): 6 Wheelchair distance (FIM): 3=150 ft Distance: 250 Wheelchair Level of Assist: 6 Wheel 50 feet with 2 turns (QC: 6 Stairs (FIM): 4 # of Steps: 12 1 Step (curb) (QC): 3 4 Steps (QC): 3 12 Steps (QC): 3 Stairs Level Of Assist: 4 Picking up an Object (QC): 2 PT Plan Problem List Problem List: Activity Tolerance, Functional Strength, Safety, Balance, Gait, Transfer, Bed Mobility, ROM Treatment/Plan Treatment Plan: Continue Plan of Care Treatment Plan: Bed Mobility, Education, Functional Activity Madalyn, Functional Strength, Group Therapy, Gait, Safety, Therapeutic Exercise, Transfers Treatment Duration: Apr 26, 2017 Frequency: At least 5 of 7 days/Wk (IRF) Estimated Hrs Per Day: 1.5 hours per day Patient and/or Family Agrees t: Yes Safety Risks/Education Patient Education: Gait Training, Transfer Techniques, Correct Positioning, W/ C Management, Disease Process, Safety Issues Teaching Recipient: Patient Teaching Methods: Demonstration, Discussion Response to Teaching: Reinforcement Needed Time/GCodes Time In: 900 Time Out: 1000 Total Billed Treatment Time: 60 Total Billed Treatment 1 visit EX 15' WCH 15' GT 30' ADONAY MULLEN PT Apr 08, 2017 10:55
--- NOTE | 2017-04-08 11:04 | ST Cognitive Linguistic Eval ---
Speech Evaluation-General Medical Diagnosis Debility, Weakness Onset Date: Apr 04, 2017 Therapy Diagnosis Therapy Diagnosis: Cognitive Linguistic Function WNL Precautions Precautions/Isolations: Fall Prevention, Standard Precautions Referral Referring Physician: Dr. Dewey Arizmendi Reason for Referral: Evaluation/Treatment Cognitive Evaluation Medical History Pertinent Medical History: Atrial Fib, CAD, CVA, GERD, HTN, [place] Current History Per patient, he recently became weak at home and required increased care to complete ADL's. Reviewed History: Yes Social History Current Living Status: Alone Speech PLF-Current Status Prior Level of Function The patient was recently living in an apartment, independently. The patient's apartment was modified for his needs (grab bars, etc), however, he was able to complete ADL's on his own. Subjective The patient was seated in wheelchair upon entrance. The patient greeted the clinician and was agreeable to participation in the cognitive linguistic evaluation. The patient denied recent cognitive, speech, language, or swallowing changes. Language Eval: Auditory Comprehends Simple Yes/No Ques: Functional Indent/Objects Multiple [place]: Functional Ident/Pics in Multiple [place]: Functional Follows 1-Step Commands: Functional Follows Complex Directions: Functional Follows General Conversations: Functional Language Eval: Verbal Language Completes Spontaneous Greeting: Functional Produces Auto, Serial Info: Functional Imitates Simple Words/Phrases: Functional Word Finding: Functional Requests Basic Needs: Functional States Basic Personal Info: Functional Expresses Complex Ideas: Functional Cognitive Patient Orientation The patient was independently oriented to month, year, day of week, and date. Objective Cognitive Domain Attention: WNL Memory: WNL Problem Solving: Functional Objective Oral Motor/Speech Production The patient continues to display mild dysarthria characterized by a reduced rate of speech and imprecise articulation. The patient remains 100% intelligible. The patient's verbal communication has remained consistent, with no recent changes secondary to recent hospitalization. Impression The patient displays cognitive linguistic skills grossly within normal limits and appropriate for completion of ADL's. Communication/Social Cognition Comprehension: 6 Expression: 5 Social Interaction: 6 Problem Solvin Memory: 6 Speech Patient Assess Expression of Ideas/Wants: Expression (4) Understanding [place] Content: Understands (4) Brief Interview-Mental Status: Yes Repetition of Three Words: Three (3) Temporal Orientation: Year: Correct (3) Temporal Orientation: Month: Accurate within 5 days(2) Temporal Orientation: Day: Correct (1) Recall : Wear to say "Sock": Yes, no cue required (2) Recall : Color: Yes, no cue required (2) Recall : Bed: Yes, no cue required (2) Speech-Plan Treatment Plan Speech Therapy Treatment Plan: Discontinue ST Evaluation, only. Frequency: Modified Program (IRF) (Evaluation, only.) Estimated Hrs Per Day: Other (Evaluation, only.) Rehab Potential: Good Safety Risks/Education Teaching Recipient: Patient Teaching Methods: Discussion Response to Teaching: Verbalize Understanding Education Topics Provided: Results, Recommendations, Plan of Care Time Speech Therapy Time In: 10:20 Speech Therapy Time Out: 10:35 Total Billed Time: 15 Billed Treatment Time 1, MARI BAUTISTA Apr 08, 2017 11:04
--- NOTE | 2017-04-08 15:11 | Therapy Group Daily Note ---
Therapy Daily Group Note Patient Education Topic Other List Below (ARU description) Exercises LE Seated Exercise, UE Exercise Other/Notes Pt maneuvered w/c to OT/PT group by self. Group consisted of introductions ( name, place living/born, what states have you visited), socialization, UE/LE seated exercises, ARU expectations and description and group interactive US information activity. Pt appropriately introduced self then listened to other group members as they introduced themselves. Pt attempted to complete seated exercises with only c/o pain when completing ankle pumps. Pt was able to verbalize understanding of ARU and give examples. Pt participated and contributed to activity, was able to give correct answers. After group, pt up in w/c maneuvering around ARU commons area. All needs met. Start Time: 13:00 Stop Time: 14:05 Total Billed Treatment Time: 65 Total Billed Treatment 1-GRP TULIO BERGMAN Apr 08, 2017 15:11
--- NOTE | 2017-04-08 15:58 | Cardiology Progress Note ---
Cardiology SOAP Progress Note Subjective: no further chest discomfort Objective: I&O/Vital Signs Vital Sign - Last 12Hours 04/08/17 04/08/17 04/08/17 06:00 08:08 09:31 Temp 97.8 Pulse 99 97 Resp 20 B/P (MAP) 109/73 112/72 O2 Delivery Room Air Room Air Weight (Pounds): 147 Weight (Ounces): 0.6 Weight (Calculated Kilograms): 66.446048 Constitutional: No appears stated age, No AAO x 3, No apparent distress, No PERRL, No well-developed, No well-nourished, No other Respiratory: No accessory muscle use, No respiratory distress, No chest tender , No chest expansion is symmetric, No chest is bilaterally symmetric, No lungs clear to percussion, No lungs clear to auscultation, No crackles, No rhonchi, No rales, No stridor, No wheezing, No pleural rub, No other Cardiovascular: regular rate-rhythm, No irregularly irregular, No extra beats, No parasternal heave is noted, No JVD, No edema, No bradycardia, No tachycardia , No point of maximal impulse, No cardiac thrills are palpable, S1 and S2, No gallop/S3, No gallop/S4, No diastolic murmur, No systolic murmur, No friction rub, No click, No other Gastrointestional: No tender, No soft, No round, No distended, No pulsatile mass, No organomegaly, No guarding, No rebound, No tenderness, No hernia, No mass, No audible bowel sounds, No abnormal bowel sounds, No abdominal bruits, No spleenomegaly, No other Extremities: No normal range of motion, No non-tender, No normal inspection, No pedal edema, No calf tenderness, No normal capillary refill, No pelvis stable , No calf tenderness, No inflammation, No pedal edema, No slow capillary refill , No swelling, No other, No abrasion, No clubbing, No cyanosis, No ecchymosis, No laceration, No no lower extremity edema bilateral, No significant edema, No tenderness, No wound Neurologic/Psychiatric: alert, normal mood/affect, oriented x 3, motor weakness Skin: No normal color, No warm/dry, No cyanosis, No cool, No diaphoresis, No damp, No ecchymosis, No jaundice, No mottled, No pallor, No rash, No tattoos/ piercings, No ulcerations, No rash on exposed areas, No ulcerations on exposed areas, No other Results/Procedures: Labs Laboratory Tests 04/08/17 05:56: Prothrombin Time 18.7H, INR Comment 1.6H A/P: Assessment/Dx: CVA, CAD, pericardial effusion, cardiomyopathy, atrial fibrillation, CHF, weakness. Plan: Weakness: Inpatient rehabilitation. Hyponatremia: Defer to primary team CVA with residual deficit continue on Plavix. Pericardial effusion: Will try to get echocardiograms from the previous hospital. If we're unable to get old records. We'll perform another echocardiogram. CAD: Previous stents. Continue Plavix, statin, beta radha, MARIA G inhibitor. status post cath which shows previous LAD stent to be occluded. no intervention. Cardiomyopathy: Get previous echocardiogram. Not in congestive heart failure on examination. Continue above therapy. Atrial fibrillation: Check EKG. Pulse was regular. Continue warfarin. Thank you for your consultation. Please call me if you have any questions. Eboni Nugent MD, FACP, FACC, FSCAI, FHRS, CCDS Interventional Cardiology Cardiac Electrophysiology Vascular Medicine and Endovascular Interventions Amaya NUGENT MD Apr 08, 2017 3:58 pm
[2017-04-08] MEDS: ACET/BUTAL/CAFF (FIORICET) TAB PO PRN (16:37)
[2017-04-08] MEDS: warFARin 3 MG (COUMADIN) TAB PO SCH (17:20)
[2017-04-08 18:05] VITALS: BP 120/76
--- NOTE | 2017-04-08 19:30 | PM & R (SOAP) Progress Note ---
Subjective Time Seen by Provider: 19:20 Subjective/Events-last exam Patient was seen in his room this evening Patient had concerns re Cardiac meds and coreg when at increased doses will cause Dizziness associated with Hypotension Assured patient that Coreg at lower dose and Blood pressure OK Patient reports no dizziness at this time Patient Min assist for transfers Patient had been living in intermediate handicapped apartment prior to dehydration resulting in hospitalization in [facility].Had Been Modified Independent for mobility at the w/c level prior to this with residual of RT CVA with Left HP .He had Meals on Wheels and his daughter visited him daily in [facility].Appreciate Cardiology note and cath report.Patient without any dizziness or sob or CP at this time. Review of Systems Neurological: Weakness Objective Exam Last Set of Vital Signs Vital Signs Date Time Temp Pulse Resp B/P (MAP) Pulse Ox O2 Delivery O2 Flow Rate FiO2 04/08/17 18:05 99.0 91 16 120/76 99 Room Air Capillary Refill : I&O Intake and Output 04/09/17 00:00 Intake Total 1840 ml Output Total 1250 ml Balance 590 ml Intake Oral 1840 ml Output Urine Total 1250 ml # Voids 6 General: Alert, Oriented X3, Cooperative, No Acute Distress HEENT: Atraumatic, PERRLA, EOMI, Mucous Memb Moist/[place] Neck: Supple, No JVD Lungs: Clear to Auscultation Heart: Regular Rate Abdomen: Normal Bowel Sounds, Soft, No Tenderness Extremities: No Edema Neuro: Other (Left HP) Results Lab Laboratory Tests 04/06/17 05:10: Prothrombin Time 18.8H, INR Comment 1.6H, Troponin I < 0.30 04/07/17 04:00: Prothrombin Time 20.4H, INR Comment 1.7H 04/08/17 05:56: Prothrombin Time 18.7H, INR Comment 1.6H Assessment/Plan Assessment General debil secondary to dehydration 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
--- NOTE | 2017-04-08 19:44 | Individualized Plan of Care ---
Individualized Plan of Care Rehab Nursing IPOC Order Admission Date Apr 04, 2017 at 17:50 Current Orders Orders Physical Therapy Oder (04/04/17 16:59) Occupational Therapy Order (04/04/17 16:59) Speech Therapy Orders (04/04/17 16:59) Consult Physician (04/04/17 16:59) Alprazolam Tablet (Xanax Tablet) (04/04/17 18:00) Famotidine Tablet (Pepcid Tablet) (04/04/17 21:00) Docusate Sodium Capsule (Colace Capsule) (04/05/17 09:00) Olanzapine Tablet (Zyprexa Tablet) (04/04/17 21:00) Butalbital/Apap/Caffeine Tab (Fioricet T (04/04/17 18:00) Ciprofloxacin Tablet (Cipro Tablet) (04/04/17 21:00) Carvedilol Tablet (Coreg Tablet) (04/04/17 21:00) Clopidogrel Tablet (Plavix Tablet) (04/05/17 09:00) Finasteride Tablet (Proscar Tablet) (04/04/17 21:00) Magnesium Oxide Tablet (Mag Ox Tablet) (04/05/17 09:00) Ondansetron Oral Dissolve Tab (Zofran (04/04/17 18:00) Tamsulosin Capsule (Flomax Capsule) (04/05/17 09:00) Valsartan Tablet (Diovan Tablet) (04/04/17 21:00) Warfarin Tablet (Coumadin Tablet) (04/04/17 18:00) Nursing Communication (Patient (04/04/17 18:23) Atorvastatin Tablet (Lipitor) (04/05/17 09:00) Alfuzosin Tablet (Uroxatral Tablet) (04/05/17 18:00) Heart Healthy (04/04/17 Dinner) Pharmacy Communication (Pharmacy Communi (04/04/17 20:15) Loratadine Tablet (Claritin Tablet) (04/04/17 21:00) Protime With Inr (04/05/17 06:00) Basic Metabolic Panel (04/05/17 06:00) Cbc With Automated Diff (04/05/17 06:00) Admission (Physician Order) (04/04/17 22:47) Initiate Admission Nursing Pro .admission (04/04/17 22:47) Isolation Central Supply Req (04/04/17 22:47) Carvedilol Tablet (Coreg Tablet) (04/05/17 08:00) Alfuzosin Tablet (Uroxatral Tablet) (04/05/17 09:00) Acetaminophen Tablet/Caplet (Tylenol T (04/05/17 00:15) Code/Resuscitation (04/05/17 07:53) Patient Visit (04/05/17 ) Pt Eval High Complexity (04/05/17 ) Functional Activities, Ea 15 (04/05/17 ) Ekg Tracing (04/05/17 12:53) Protime With Inr (04/06/17 06:00) Nitroglycerin Ointment (Nitrobid Ointme (04/06/17 04:32) Nitroglycerin Ointment (Nitrobid Ointme (04/06/17 05:00) Troponin I (04/06/17 04:48) Aspirin Tablet (Aspirin Tablet) (04/06/17 04:54) Clopidogrel Tablet (Plavix Tablet) (04/06/17 05:15) Aspirin Tablet (Aspirin Tablet) (04/06/17 05:15) Clopidogrel Tablet (Plavix Tablet) (04/06/17 05:15) Midazolam Injection (Versed Injection) (04/06/17 05:31) Fentanyl Injection (Sublimaze Injection (04/06/17 05:31) Protime With Inr (04/07/17 06:00) Physical Therapy Oder (04/07/17 13:45) Occupational Therapy Order (04/07/17 13:45) Transfer - Room Transfer (04/07/17 14:35) Patient Visit (04/07/17 ) Exercise Therap, Ea 15 Min (04/07/17 ) Gait Training, Ea 15 Min (04/07/17 ) Bisacodyl Suppository (Dulcolax Supposit (04/07/17 17:15) Bisacodyl Suppository (Dulcolax Supposit (04/07/17 17:15) Protime With Inr (04/08/17 06:00) Patient Visit (04/08/17 ) Speech Sound Lang Comp (04/08/17 ) Patient Visit (04/08/17 ) Gait Training, Ea 15 Min (04/08/17 ) Exercise Therap, Ea 15 Min (04/08/17 ) Wheelchair Mgmt/Propulsn 15min (04/08/17 ) Patient Visit (04/08/17 ) Carvedilol Tablet (Coreg Tablet) (04/08/17 21:00) Other Nursing Orders: Monitor for any further loose stools or constipation or urinary retention Intensity of Therapy to be met Patient to be seen: Min.3h per day/5 of 7d PT IPOC Problem List: Activity Tolerance, Functional Strength, Safety, Balance, Gait, Transfer, Bed Mobility, ROM Treatment Plan: Continue Plan of Care Bed Mobility, Education, Functional Activity Madalyn, Functional Strength, Group Therapy, Gait, Safety, Therapeutic Exercise, Transfers Treatment Duration: Apr 26, 2017 Frequency: At least 5 of 7 days/Wk (IRF) Estimated Hrs Per Day: 1.5 hours per day OT IPOC Problems: Decreased Activ Tolerance, Decreased UE Strength, Dependent Transfers , Impaired Coordination, Impaired Funct Balance, Impaired I ADL's, Impaired Self -Care Skills, Restricted Funct UE ROM OT Treatment, Training and Edu: Yes OT Problems Pt to benefit from skilled OT intervention for ADL training, transfers, strengthening, and home safety education to maximize level of function and allow safe discharge home. Plan of Care: ADL Retraining, Functional Mobility, Group Exercise/Act as Ind, UE Funct Exercise/Act Treatment Duration: Apr 26, 2017 Frequency: At least 5 of 7 days/Wk (IRF) Estimated Hrs Per Day: 1.[address] IPOC Speech Therapy Treatment Plan: Discontinue ST Treatment Duration: Apr 08, 2017 Frequency: Modified Program (IRF) (Evaluation, only.) Estimated Hrs Per Day: Other (Evaluation, only.) Signalling And Communications Engineer/Case Mgmt Signalling And Communications Engineer/Case Managemen: Discharge Planning, Patient/Family Counseling Physician IPOC Medical Issues being managed closely and that require the 24 hour availability of a physician:Cardiomyopathy and Coronary Artery D Prior strokw with left HP A FIB Previous [facility] Medical Issues: Bowel/Bladder Function, DVT Prophylaxis, Falls Precautions, Fluid/Electrolyte/Nutrition Balance, Infection Protection, Other (List) (as per above) Brief Synthesis of Preadmission Screen, Post-Admission Evaluation, and Therapy Evaluations: 62 yo male with a hx of Rt Cva with Left HP who had been Modified Independet at the w/c level in a handicapped accesible apartment in [facility] with his daughter looking in on him daily as well as meal on wheels didier who became dehydrated after overtreatment for Constipation at home PMH significant for Coronary Artery d with cardiomyopathy with a sent placed in the past at OSH Cardiology following patient here and meds being adjusted Patient on Coumadin for A FIB as well as Coreg and Diovan Currently rrquires Min assist for transfers. Medical Prognosis: fair Anticipated Length of Stay: 04-26-17 Rehab Goals Retrun to PLOF Anticipated discharge destinat: Back to senior apartment with [facility] and Patients daughter assisting as needed GRAEME GRESHAM MD Apr 08, 2017 19:44
[2017-04-08] MEDS: OLANZapine 5 MG (ZyPREXA) TAB PO SCH (22:01)
[2017-04-08] MEDS: LORATADINE (CLARITIN) 10 MG TAB PO SCH (22:01)
[2017-04-08] MEDS: VALSARTAN 80 MG (DIOVAN) TAB PO SCH (22:02)
[2017-04-08] MEDS: FINASTERIDE (PROSCAR) 5 MG TAB PO SCH (22:02)
[2017-04-08] MEDS: CARVEDILOL 3.125 MG (COREG) TABLET PO SCH (22:03)
[2017-04-09] MEDS: ALPRAZolam 0.5 MG (XANAX) TAB PO PRN (00:29)
[2017-04-09 05:42] LABS: INR 1.6 (0.8-1.4); PROTHROMBIN TIME PATIENT 19.1 SEC (12.2-14.7)
[2017-04-09 06:14] VITALS: BP 114/68
[2017-04-09] MEDS: CLOPIDOGREL 75 MG (PLAVIX) TABLET PO SCH (09:03)
[2017-04-09] MEDS: CARVEDILOL 3.125 MG (COREG) TABLET PO SCH ×2 (09:03→21:10)
[2017-04-09] MEDS: DOCUSATE SODIUM 100 MG (COLACE) CAP PO SCH (09:03)
[2017-04-09] MEDS: ALFUZOSIN HCL 10 MG TAB (UROXATRAL) PO SCH (09:04)
[2017-04-09] MEDS: CIPROFLOXACIN 500 MG (CIPRO) TABLET PO SCH ×2 (09:04→21:09)
[2017-04-09] MEDS: MAGNESIUM OXIDE (MAG-OX)400 MG TAB PO SCH (09:04)
[2017-04-09] MEDS: FAMOTIDINE 20 MG (PEPCID) TABLET PO SCH ×2 (09:04→21:09)
[2017-04-09] MEDS: ATORVASTATIN 40 MG (LIPITOR) TABLET PO SCH (09:04)
--- NOTE | 2017-04-09 10:29 | PM & R (SOAP) Progress Note ---
Subjective Time Seen by Provider: 08:30 Subjective/Events-last exam Patient was seen in his room today sitting up in W/C denies any SOB or dizziness Patient min assist for transfers Discussed case with RN Patient has fungal groin rash -[facility] INR noted Cardiology following Review of Systems Neurological: Weakness Objective Exam Last Set of Vital Signs Vital Signs Date Time Temp Pulse Resp B/P (MAP) Pulse Ox O2 Delivery O2 Flow Rate FiO2 04/09/17 06:14 98.4 89 18 114/68 96 Room Air Capillary Refill : I&O Intake and Output 04/10/17 00:00 Intake Total 560 ml Output Total 1050 ml Balance -490 ml Intake Oral 560 ml Output Urine Total 1050 ml # Voids 1 General: Alert, Oriented X3, Cooperative, No Acute Distress HEENT: Atraumatic, PERRLA, EOMI, Mucous Memb Moist/[place] Neck: Supple, No JVD Lungs: Clear to Auscultation Heart: Regular Rate Abdomen: Normal Bowel Sounds, Soft, No Tenderness Extremities: No Edema Skin: Other (Fungal groin rash) Neuro: Other (Left HP) Results Lab Laboratory Tests 04/07/17 04:00: Prothrombin Time 20.4H, INR Comment 1.7H 04/08/17 05:56: Prothrombin Time 18.7H, INR Comment 1.6H 04/09/17 05:25: Prothrombin Time 19.1H, INR Comment 1.6H Assessment/Plan Assessment General debil secondary to dehydration 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
--- NOTE | 2017-04-09 10:59 | Physical Therapy Daily Note ---
PT Daily Note-Current Subjective Patient in wheelchair pre tx, agrees to PT, no pain but has been having muscle spasms in his left leg. Appearance Patient in wheelchair at bedside post tx with nurse call, phone, tray, all needs met. Mental Status Patient Orientation: Normal For Age Transfers Functional [place] Measure 0=Not Assessed/NA 4=Minimal Assistance 1=Total Assistance 5=Supervision or Setup 2=Maximal Assistance 6=Modified [place] 3=Moderate Assistance 7=Complete IndependenceIRFPAI Quality Coding Scale 6 Independent with activity with or without an assistive device 5 Patient requires set up or clean up by helper. Patient completes activity by themselves 4 Supervision or touching assist (CGA). [place] provide cues , steadying assist 3 The helper provides less than half the effort to complete the activity 2 The helper provides more than half the effort to complete the activity 1 Dependent. The helper does all the effort to complete an activity 7 Patient refused to complete or attempt activity 9 The patient did not perform the activity before the current illness or injury 88 Not attempted due to Medical conditions or safety concerns Transfers (B, C, W/C) (FIM): 4 Sit to/from Stand: 4 Bed to/from Chair: 4 CGA, good safety and positioning Weight Bearing Right Lower Extremity: Right Full Weight Bearing Left Lower Extremity: Left Full Weight Bearing Gait Training Gait (FIM): 1 Distance: 40'x3 Gait Level of Assist: 4 Gait Persons Needed: 1 Gait Assistive Device: Walker Donnie CGA, uses left AFO, slow, more of a step to than step through with right leg Wheelchair Training Does the Pt Use a Wheelchair?: Yes Wheelchair (FIM): 6 Distance: 200'x2 Type of Wheelchair: Manual Exercises LAQ left side for 5 min, sit to stand 2 sets of 5 Treatments transfers, wheelchair mobility, ambulation, functional strengthening Assessment Current Status: Fair Progress improving ambulation PT Short Term Goals Short Term Goals Time Frame: Apr 12, 2017 Transfers (B,C,W/C) (FIM): 4 Gait (FIM): 4 Distance (FIM): 3=150 ft Gait Assistive Device: Walker Donnie Wheelchair distance (FIM): 3=150 ft Wheelchair Distance: 200'x2 Wheelchair Level of Assist: 6 Stairs (FIM): 3 # of Steps: 12 PT Long-Term Goals Long-Term Goals PT Long-Term Goals Time Frame: May 02, 2017 Transfers (B,C,W/C) (FIM): 6 Sit to Lying (QC): 6 Lying-Sitting on Side/Bed(QC): 6 Sit to Stand (QC): 6 Rollin Roll Left to Right (QC): 6 Chair/Nts-ti-Gsjgr Xfer(QC): 6 Car Transfer (QC): 4 Does the Patient Walk: Yes Gait (FIM): 4 Gait distance (FIM): 3=150 ft Distance: 150 Walk 10 feet (QC): 4 Walk 10ft-Uneven Surface(QC): 4 Walk 50ft with 2 Turns (QC): 4 Walk 150 ft (QC): 4 Gait Level of Assist: 4 Gait Assistive Device: Walker Donnie Does the Pt use WC or Scooter?: Yes Wheelchair (FIM): 6 Wheelchair distance (FIM): 3=150 ft Distance: 250 Wheelchair Level of Assist: 6 Wheel 50 feet with 2 turns (QC: 6 Stairs (FIM): 4 # of Steps: 12 1 Step (curb) (QC): 3 4 Steps (QC): 3 12 Steps (QC): 3 Stairs Level Of Assist: 4 Picking up an Object (QC): 2 PT Plan Problem List Problem List: Activity Tolerance, Functional Strength, Safety, Balance, Gait, Transfer, Bed Mobility, ROM Treatment/Plan Treatment Plan: Continue Plan of Care Treatment Plan: Bed Mobility, Education, Functional Activity Madalyn, Functional Strength, Group Therapy, Gait, Safety, Therapeutic Exercise, Transfers Treatment Duration: Apr 26, 2017 Frequency: At least 5 of 7 days/Wk (IRF) Estimated Hrs Per Day: 1.5 hours per day Patient and/or Family Agrees t: Yes Safety Risks/Education Patient Education: Gait Training, Transfer Techniques, Correct Positioning, W/ C Management, Safety Issues Teaching Recipient: Patient Teaching Methods: Demonstration, Discussion Response to Teaching: Reinforcement Needed Time/GCodes Time In: 1015 Time Out: 1100 Total Billed Treatment Time: 45 Total Billed Treatment 1 visit [facility] 10' EX 10' GT 25' ADONAY MULLEN PT Apr 09, 2017 10:59
--- NOTE | 2017-04-09 11:23 | Occupational Ther Daily Note ---
OT Current Status-Daily Note Subjective Pt in bed, agrees to treatment. Pt reports 8/10 neck pain and 7/10 pain in left LE secondary to muscle spasms. Mental Status/Objective Functional [place] Measure 0=Not Assessed/NA 4=Minimal Assistance 1=Total Assistance 5=Supervision or Setup 2=Maximal Assistance 6=Modified [place] 3=Moderate Assistance 7=Complete [place] ADL-Treatment Pt used urinal while in bed. Assist to place urinal, but pt then able to hold without assist. Supine to sit with minimal assistance. Pt completed oral care with mouthwash and then put dentures in mouth with set up. Pt requests shower today. Transfer EOB to w/c with minimal assistance. To restroom via w/c. Pt transferred w/c <-> shower bench with minimal assistance using grab bars, cues for safety. Pt doffed pullover shirt with SBA. Assist to doff pants over feet. Seated bathing completed while using hand held shower. Pt requires minimal assistance to stand and wash buttocks and right arm. Pt requires assist to place left UE into shirt, then able to kiln puller head and don shirt. Pt requires assist to thread bilateral LE into pants. Stood with minimal assist for balance during pant hike. Pt combed hair with set up. Pt moves slowly this morning, requires increased time for ADL tasks. Pt sitting in w/c with needs met and RN present after session. Functional [place] Measure 0=Not Assessed/NA 4=Minimal Assistance 1=Total Assistance 5=Supervision or Setup 2=Maximal Assistance 6=Modified [place] 3=Moderate Assistance 7=Complete IndependenceIRFPAI Quality Coding Scale 6 Independent with activity with or without an assistive device 5 Patient requires set up or clean up by helper. Patient completes activity by themselves 4 Supervision or touching assist (CGA). [place] provide cues , steadying assist 3 The helper provides less than half the effort to complete the activity 2 The helper provides more than half the effort to complete the activity 1 Dependent. The helper does all the effort to complete an activity 7 Patient refused to complete or attempt activity 9 The patient did not perform the activity before the current illness or injury 88 Not attempted due to Medical conditions or safety concerns Grooming (FIM): 5 Bathing (FIM): 4 Upper Body (FIM): 4 Lower Body Dressing (FIM): 3 Shower Transfer(FIM): 4 OT Short Term Goals Short Term Goals Time Frame: Apr 12, 2017 Bathing(FIM): 4 Upper Body Dressing(FIM): 4 Lower Body Dressing(FIM): 4 Toileting(FIM): 4 Transfers (B,C,W/C) (FIM): 4 Shower Transfer(FIM): 4 Additional Short Term Goals: 1-Demonstrate ADL Tasks, 2-Verbalize Understanding , 3-ImproveStrength/Madalyn 1=Demonstrate adherence to instructed precautions during ADL tasks. 2=Patient will verbalize/demonstrate understanding of assistive devices/ modifications for ADL. 3=Patient will improve strength/tolerance for activity to enable patient to perform ADL's. OT Protein Specialist Goals Detention Goals Time Frame: Apr 26, 2017 Eating (FIM): 6 Eating (QC): 6 Groomin Oral Hygiene (QC): 6 Bathing(FIM): 5 Shower/Bathe Self (QC): 5 Upper Body Dressing(FIM): 5 Upper Body Dressing (QC): 5 Lower Body Dressing(FIM): 5 Lower Body Dressing (QC): 4 On/Off Footwear (QC): 5 Toileting(FIM): 6 Toileting Hygiene (QC): 6 Toilet/Commode Transfer(FIM): 6 Toilet/Commode Transfer (QC): 6 Shower Transfer(FIM): 5 Additional Goals: 1-Demonstrate ADL Tasks, 2-Verbalize Understanding, 3- ImproveStrength/Madalyn 1=Demonstrate adherence to instructed precautions during ADL tasks. 2=Patient will verbalize/demonstrate understanding of assistive devices/ modifications for ADL. 3=Patient will improve strength/tolerance for activity to enable patient to perform ADL's. OT Education/Plan Problem List/Assessment Pt to benefit from skilled OT intervention for ADL training, transfers, strengthening, and home safety education to maximize level of function and allow safe discharge home. Discharge Recommendations Plan/Recommendations: Continue POC Treatment Plan/Plan of Care Patient would benefit from OT for education, treatment and training to promote independence in ADL's, mobility, safety and/or upper extremity function for ADL' s. Plan of Care: ADL Retraining, Functional Mobility, Group Exercise/Act as Ind, UE Funct Exercise/Act Treatment Duration: Apr 26, 2017 Frequency: At least 5 of 7 days/Wk (IRF) Estimated Hrs Per Day: 1.5 hours per day Agreement: Yes Rehab Potential: Good Time/GCodes Start Time: 08:00 Stop Time: 09:00 Total Time Billed (hr/min): 60 Billed Treatment Time 1 visit, ADLx4(60minutes) RASHIDA ORTIZ OT Apr 09, 2017 11:23
--- NOTE | 2017-04-09 14:12 | Cardiology Progress Note ---
Cardiology SOAP Progress Note Subjective: No further chest pain Objective: I&O/Vital Signs Vital Sign - Last 12Hours 04/09/17 04/09/17 06:14 09:00 Temp 98.4 Pulse 89 Resp 18 B/P (MAP) 114/68 Pulse Ox 96 96 O2 Delivery Room Air Room Air Weight (Pounds): 147 Weight (Ounces): 0.6 Weight (Calculated Kilograms): 66.561297 Constitutional: No appears stated age, No AAO x 3, No apparent distress, No PERRL, No well-developed, No well-nourished, No other Respiratory: No accessory muscle use, No respiratory distress, No chest tender , No chest expansion is symmetric, No chest is bilaterally symmetric, No lungs clear to percussion, No lungs clear to auscultation, No crackles, No rhonchi, No rales, No stridor, No wheezing, No pleural rub, No other Cardiovascular: regular rate-rhythm, No irregularly irregular, No extra beats, No parasternal heave is noted, No JVD, No edema, No bradycardia, No tachycardia , No point of maximal impulse, No cardiac thrills are palpable, S1 and S2, No gallop/S3, No gallop/S4, No diastolic murmur, No systolic murmur, No friction rub, No click, No other Gastrointestional: No tender, No soft, No round, No distended, No pulsatile mass, No organomegaly, No guarding, No rebound, No tenderness, No hernia, No mass, No audible bowel sounds, No abnormal bowel sounds, No abdominal bruits, No spleenomegaly, No other Extremities: No normal range of motion, No non-tender, No normal inspection, No pedal edema, No calf tenderness, No normal capillary refill, No pelvis stable , No calf tenderness, No inflammation, No pedal edema, No slow capillary refill , No swelling, No other, No abrasion, No clubbing, No cyanosis, No ecchymosis, No laceration, No no lower extremity edema bilateral, No significant edema, No tenderness, No wound Neurologic/Psychiatric: alert, normal mood/affect, oriented x 3, motor weakness Skin: No normal color, No warm/dry, No cyanosis, No cool, No diaphoresis, No damp, No ecchymosis, No jaundice, No mottled, No pallor, No rash, No tattoos/ piercings, No ulcerations, No rash on exposed areas, No ulcerations on exposed areas, No other Results/Procedures: Labs Laboratory Tests 04/09/17 05:25: Prothrombin Time 19.1H, INR Comment 1.6H A/P: Assessment/Dx: CVA, CAD, pericardial effusion, cardiomyopathy, atrial fibrillation, CHF, weakness. Plan: Weakness: Inpatient rehabilitation. Hyponatremia: Defer to primary team CVA with residual deficit continue on Plavix. Pericardial effusion: Will try to get echocardiograms from the previous hospital. If we're unable to get old records. We'll perform another echocardiogram. CAD: Previous stents. Continue Plavix, statin, beta radha, MARIA G inhibitor. status post cath which shows previous LAD stent to be occluded. no intervention. We got old records from previous hospital which showed that the LAD stent is chronically occluded. Patient does have proximal LAD disease following which there is a large septal concrete pointer as well as a first diagonal artery. If the patient develops further chest pain we will consider PCI to the proximal LAD into the first diagonal. However if the patient's rest of the stay is unremarkable we will defer to his primary cook camp. Cardiomyopathy: Get previous echocardiogram. Not in congestive heart failure on examination. Continue above therapy. Atrial fibrillation: Check EKG. Pulse was regular. Continue warfarin. Thank you for your consultation. Please call me if you have any questions. Eboni Nugent MD, FACP, FACC, FSCAI, FHRS, CCDS Interventional Cardiology Cardiac Electrophysiology Vascular Medicine and Endovascular Interventions Amaya NUGENT MD Apr 09, 2017 2:11 pm
--- NOTE | 2017-04-09 15:47 | Therapy Group Daily Note ---
Therapy Daily Group Note Patient Education Topic Other List Below (Memory strategies) Exercises LE Seated Exercise, UE Exercise Other/Notes Pt maneuvered self to OT/PT group via w/c. Group consisted of introductions, socialization, UE/LE seated exercises, education on memory strategies and completing memory activity that incorporates strategies. Pt was able to introduce self appropriately. Pt contributed to group conversation and interacted with peers. Pt verbalized understanding of memory strategies and was able to describe own personal strategy used. Pt was able to give an inspiration for the end of group question, 'keeping a smile on my face' was his inspiration. After therapy, pt maneuvered w/c back to room. All needs met. Start Time: 13:00 Stop Time: 14:20 Total Billed Treatment Time: 80 Total Billed Treatment 1-GRP TULIO BERGMAN Apr 09, 2017 15:47
[2017-04-09] MEDS: ACETAMINOPHEN 325 MG TABLET/CAPLET (TYLENOL) PO PRN (15:59)
[2017-04-09 19:00] VITALS: BP 107/69
[2017-04-09] MEDS: warFARin 3 MG (COUMADIN) TAB PO SCH (21:06)
[2017-04-09] MEDS: VALSARTAN 80 MG (DIOVAN) TAB PO SCH (21:09)
[2017-04-09] MEDS: FINASTERIDE (PROSCAR) 5 MG TAB PO SCH (21:09)
[2017-04-09] MEDS: LORATADINE (CLARITIN) 10 MG TAB PO SCH (21:09)
[2017-04-09] MEDS: OLANZapine 5 MG (ZyPREXA) TAB PO SCH (21:10)
[2017-04-09] MEDS: BETAMETHASONE/CLOTRIM CREAM (LOTRISONE) 45 GM TP SCH (21:12)
[2017-04-10] MEDS: ALPRAZolam 0.5 MG (XANAX) TAB PO PRN (00:49)
[2017-04-10 05:09] VITALS: BP 147/86
[2017-04-10 06:24] LABS: INR 1.5 (0.8-1.4)
--- NOTE | 2017-04-10 10:16 | Physical Therapy Daily Note ---
PT Daily Note-Current Subjective Patient in bed pre tx, agrees to PT, has no complaints of pain but states he has been having muscle spasms in his left leg. Patient needs to use the restroom. Appearance Patient in wheelchair at bedside post tx with nurse call,phone, tray, all needs me.t Mental Status Patient Orientation: Normal For Age Transfers Functional [place] Measure 0=Not Assessed/NA 4=Minimal Assistance 1=Total Assistance 5=Supervision or Setup 2=Maximal Assistance 6=Modified [place] 3=Moderate Assistance 7=Complete IndependenceIRFPAI Quality Coding Scale 6 Independent with activity with or without an assistive device 5 Patient requires set up or clean up by helper. Patient completes activity by themselves 4 Supervision or touching assist (CGA). [place] provide cues , steadying assist 3 The helper provides less than half the effort to complete the activity 2 The helper provides more than half the effort to complete the activity 1 Dependent. The helper does all the effort to complete an activity 7 Patient refused to complete or attempt activity 9 The patient did not perform the activity before the current illness or injury 88 Not attempted due to Medical conditions or safety concerns Transfers (B, C, W/C) (FIM): 4 Scootin Rollin Supine to/from Sit: 4 Sit to/from Stand: 4 Bed to/from Chair: 4 Weight Bearing Right Lower Extremity: Right Full Weight Bearing Left Lower Extremity: Left Full Weight Bearing Wheelchair Training Does the Pt Use a Wheelchair?: Yes Wheelchair (FIM): 6 Distance: 150'x2 Type of Wheelchair: Manual Exercises NuStep Minutes: 15 NuStep Workload: 6 Treatments bed mobility and transfers, patient was toileted once with min assist for transfers and mod assist for loweres, functional strengthening, and wheelchair mobility Assessment Current Status: Fair Progress slow, steady improvement in strength PT Short Term Goals Short Term Goals Time Frame: Apr 12, 2017 Transfers (B,C,W/C) (FIM): 4 Gait (FIM): 4 Distance (FIM): 3=150 ft Gait Assistive Device: Walker Donnie Wheelchair distance (FIM): 3=150 ft Wheelchair Distance: 200'x2 Wheelchair Level of Assist: 6 Stairs (FIM): 3 # of Steps: 12 PT Remote Broadcast Engineer Goals Detention Goals PT Remote Broadcast Engineer Goals Time Frame: May 02, 2017 Transfers (B,C,W/C) (FIM): 6 Sit to Lying (QC): 6 Lying-Sitting on Side/Bed(QC): 6 Sit to Stand (QC): 6 Rollin Roll Left to Right (QC): 6 Chair/Tmi-bf-Fntyt Xfer(QC): 6 Car Transfer (QC): 4 Does the Patient Walk: Yes Gait (FIM): 4 Gait distance (FIM): 3=150 ft Distance: 150 Walk 10 feet (QC): 4 Walk 10ft-Uneven Surface(QC): 4 Walk 50ft with 2 Turns (QC): 4 Walk 150 ft (QC): 4 Gait Level of Assist: 4 Gait Assistive Device: Walker Donnie Does the Pt use WC or Scooter?: Yes Wheelchair (FIM): 6 Wheelchair distance (FIM): 3=150 ft Distance: 250 Wheelchair Level of Assist: 6 Wheel 50 feet with 2 turns (QC: 6 Stairs (FIM): 4 # of Steps: 12 1 Step (curb) (QC): 3 4 Steps (QC): 3 12 Steps (QC): 3 Stairs Level Of Assist: 4 Picking up an Object (QC): 2 PT Plan Problem List Problem List: Activity Tolerance, Functional Strength, Safety, Balance, Gait, Transfer, Bed Mobility, ROM Treatment/Plan Treatment Plan: Continue Plan of Care Treatment Plan: Bed Mobility, Education, Functional Activity Madalyn, Functional Strength, Group Therapy, Gait, Safety, Therapeutic Exercise, Transfers Treatment Duration: Apr 26, 2017 Frequency: At least 5 of 7 days/Wk (IRF) Estimated Hrs Per Day: 1.5 hours per day Patient and/or Family Agrees t: Yes Safety Risks/Education Patient Education: Transfer Techniques, Correct Positioning, W/C Management, Safety Issues Teaching Recipient: Patient Teaching Methods: Demonstration, Discussion Response to Teaching: Reinforcement Needed Time/GCodes Time In: 930 Time Out: 1015 Total Billed Treatment Time: 45 Total Billed Treatment 1 visit EX 15' FA 20' WC 10' ADONAY MULLEN PT Apr 10, 2017 10:16
[2017-04-10] MEDS: MAGNESIUM OXIDE (MAG-OX)400 MG TAB PO SCH (10:17)
[2017-04-10] MEDS: BISACODYL 10 MG SUPP (DULCOLAX) PR PRN (10:17)
[2017-04-10] MEDS: CIPROFLOXACIN 500 MG (CIPRO) TABLET PO SCH ×2 (10:17→21:10)
[2017-04-10] MEDS: ALFUZOSIN HCL 10 MG TAB (UROXATRAL) PO SCH (10:17)
[2017-04-10] MEDS: FAMOTIDINE 20 MG (PEPCID) TABLET PO SCH ×2 (10:17→21:10)
[2017-04-10] MEDS: CARVEDILOL 3.125 MG (COREG) TABLET PO SCH ×2 (10:17→21:10)
[2017-04-10] MEDS: CLOPIDOGREL 75 MG (PLAVIX) TABLET PO SCH (10:17)
[2017-04-10] MEDS: ATORVASTATIN 40 MG (LIPITOR) TABLET PO SCH (10:17)
[2017-04-10] MEDS: DOCUSATE SODIUM 100 MG (COLACE) CAP PO SCH (10:17)
[2017-04-10] MEDS: BETAMETHASONE/CLOTRIM CREAM (LOTRISONE) 45 GM TP SCH ×2 (10:19→21:12)
--- NOTE | 2017-04-10 11:27 | PM & R (SOAP) Progress Note ---
Subjective Time Seen by Provider: 11:20 Subjective/Events-last exam Patient was seen in [facility] this AM Concerned about blister on left finger with contractures noted as well as blister left foot Discussed with RN DR House to be contacted re recs.Patient min assist for transfers Objective Exam Last Set of Vital Signs Vital Signs Date Time Temp Pulse Resp B/P (MAP) Pulse Ox O2 Delivery O2 Flow Rate FiO2 04/10/17 05:09 98.2 78 18 147/86 97 Room Air Capillary Refill : I&O Intake and Output 04/11/17 00:00 Intake Total 600 ml Output Total 1375 ml Balance -775 ml Intake Oral 600 ml Output Urine Total 1375 ml General: Alert, Oriented X3, Cooperative, No Acute Distress HEENT: Atraumatic, PERRLA, EOMI, Mucous Memb Moist/[place] Neck: Supple, No JVD Lungs: Clear to Auscultation Heart: Regular Rate Abdomen: Normal Bowel Sounds, Soft, No Tenderness Extremities: No Edema Skin: Other (Fungal groin rash) Neuro: Other (Left HP) Results Lab Laboratory Tests 04/08/17 05:56: Prothrombin Time 18.7H, INR Comment 1.6H 04/09/17 05:25: Prothrombin Time 19.1H, INR Comment 1.6H 04/10/17 05:45: Prothrombin Time 18.0H, INR Comment 1.5H Assessment/Plan Assessment General debil secondary to dehydration 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
--- NOTE | 2017-04-10 12:26 | Occupational Ther Daily Note ---
OT Current Status-Daily Note Subjective Pt in bathroom with nrsg. Pt agreed to therapy. No c/o pain at this time. Pt did c/o blister on palmar side at base of 3rd digit. Reported to nrsg. Mental Status/Objective Patient Orientation: Person, Place, Time, Situation Functional [place] Measure 0=Not Assessed/NA 4=Minimal Assistance 1=Total Assistance 5=Supervision or Setup 2=Maximal Assistance 6=Modified [place] 3=Moderate Assistance 7=Complete [place] ADL-Treatment Pt declined shower, bathing and dressing. Pt was able to complete toilet transfer with CGA using grabbar for safety. CGA when manipulating lower clothing. Functional [place] Measure 0=Not Assessed/NA 4=Minimal Assistance 1=Total Assistance 5=Supervision or Setup 2=Maximal Assistance 6=Modified [place] 3=Moderate Assistance 7=Complete IndependenceIRFPAI Quality Coding Scale 6 Independent with activity with or without an assistive device 5 Patient requires set up or clean up by helper. Patient completes activity by themselves 4 Supervision or touching assist (CGA). [place] provide cues , steadying assist 3 The helper provides less than half the effort to complete the activity 2 The helper provides more than half the effort to complete the activity 1 Dependent. The helper does all the effort to complete an activity 7 Patient refused to complete or attempt activity 9 The patient did not perform the activity before the current illness or injury 88 Not attempted due to Medical conditions or safety concerns Toileting (FIM): 4 Toileting Hygiene (QC): 4 Transfers (B, C, W/C) (FIM): 4 Toilet/Commode Transfer (FIM): 4 Toilet Transfer (QC): 4 Other Treatment Massage and stretch to hand and forearm to increase AROM and PROM. Pt demonstrated an increase in each. Pt verbalized pain with stretching then lessened after massage. Pt then transported back to room and transferred back to bed. Call light/phone in reach. All needs met in room. OT Short Term Goals Short Term Goals Time Frame: Apr 12, 2017 Bathing(FIM): 4 Upper Body Dressing(FIM): 4 Lower Body Dressing(FIM): 4 Toileting(FIM): 4 Transfers (B,C,W/C) (FIM): 4 Shower Transfer(FIM): 4 Additional Short Term Goals: 1-Demonstrate ADL Tasks, 2-Verbalize Understanding , 3-ImproveStrength/Madalyn 1=Demonstrate adherence to instructed precautions during ADL tasks. 2=Patient will verbalize/demonstrate understanding of assistive devices/ modifications for ADL. 3=Patient will improve strength/tolerance for activity to enable patient to perform ADL's. OT Investment Director Goals Investment Director Goals Time Frame: Apr 26, 2017 Eating (FIM): 6 Eating (QC): 6 Groomin Oral Hygiene (QC): 6 Bathing(FIM): 5 Shower/Bathe Self (QC): 5 Upper Body Dressing(FIM): 5 Upper Body Dressing (QC): 5 Lower Body Dressing(FIM): 5 Lower Body Dressing (QC): 4 On/Off Footwear (QC): 5 Toileting(FIM): 6 Toileting Hygiene (QC): 6 Toilet/Commode Transfer(FIM): 6 Toilet/Commode Transfer (QC): 6 Shower Transfer(FIM): 5 Additional Goals: 1-Demonstrate ADL Tasks, 2-Verbalize Understanding, 3- ImproveStrength/Madalyn 1=Demonstrate adherence to instructed precautions during ADL tasks. 2=Patient will verbalize/demonstrate understanding of assistive devices/ modifications for ADL. 3=Patient will improve strength/tolerance for activity to enable patient to perform ADL's. OT Education/Plan Problem List/Assessment Pt to benefit from skilled OT intervention for ADL training, transfers, strengthening, and home safety education to maximize level of function and allow safe discharge home. Discharge Recommendations Plan/Recommendations: Continue POC Treatment Plan/Plan of Care Patient would benefit from OT for education, treatment and training to promote independence in ADL's, mobility, safety and/or upper extremity function for ADL' s. Plan of Care: ADL Retraining, Functional Mobility, Group Exercise/Act as Ind, UE Funct Exercise/Act Treatment Duration: Apr 26, 2017 Frequency: At least 5 of 7 days/Wk (IRF) Estimated Hrs Per Day: 1.5 hours per day Agreement: Yes Rehab Potential: Good Time/GCodes Start Time: 08:00 Stop Time: 09:00 Total Time Billed (hr/min): 60 Billed Treatment Time 1 visit-FA 4 (60 min) TULIO BERGMAN Apr 10, 2017 12:25
--- NOTE | 2017-04-10 14:59 | Cardiology Progress Note ---
Cardiology SOAP Progress Note Subjective: mild shortness of breath. Objective: I&O/Vital Signs Vital Sign - Last 12Hours 04/10/17 04/10/17 05:09 09:00 Temp 98.2 Pulse 78 Resp 18 B/P (MAP) 147/86 Pulse Ox 97 O2 Delivery Room Air Room Air Weight (Pounds): 147 Weight (Ounces): 0.6 Weight (Calculated Kilograms): 66.352887 Constitutional: No appears stated age, No AAO x 3, No apparent distress, No PERRL, No well-developed, No well-nourished, No other Respiratory: No accessory muscle use, No respiratory distress, No chest tender , No chest expansion is symmetric, No chest is bilaterally symmetric, No lungs clear to percussion, No lungs clear to auscultation, No crackles, No rhonchi, No rales, No stridor, No wheezing, No pleural rub, No other Cardiovascular: regular rate-rhythm, No irregularly irregular, No extra beats, No parasternal heave is noted, No JVD, No edema, No bradycardia, No tachycardia , No point of maximal impulse, No cardiac thrills are palpable, S1 and S2, No gallop/S3, No gallop/S4, No diastolic murmur, No systolic murmur, No friction rub, No click, No other Gastrointestional: No tender, No soft, No round, No distended, No pulsatile mass, No organomegaly, No guarding, No rebound, No tenderness, No hernia, No mass, No audible bowel sounds, No abnormal bowel sounds, No abdominal bruits, No spleenomegaly, No other Extremities: No normal range of motion, No non-tender, No normal inspection, No pedal edema, No calf tenderness, No normal capillary refill, No pelvis stable , No calf tenderness, No inflammation, No pedal edema, No slow capillary refill , No swelling, No other, No abrasion, No clubbing, No cyanosis, No ecchymosis, No laceration, No no lower extremity edema bilateral, No significant edema, No tenderness, No wound Neurologic/Psychiatric: alert, normal mood/affect, oriented x 3, motor weakness Skin: No normal color, No warm/dry, No cyanosis, No cool, No diaphoresis, No damp, No ecchymosis, No jaundice, No mottled, No pallor, No rash, No tattoos/ piercings, No ulcerations, No rash on exposed areas, No ulcerations on exposed areas, No other Results/Procedures: Labs Laboratory Tests 04/10/17 05:45: Prothrombin Time 18.0H, INR Comment 1.5H A/P: Assessment/Dx: CVA, CAD, pericardial effusion, cardiomyopathy, atrial fibrillation, CHF, weakness. Plan: Weakness: Inpatient rehabilitation. Hyponatremia: Defer to primary team CVA with residual deficit continue on Plavix. Pericardial effusion:Echocardiogram shows mild to moderate pericardial effusion. No significant tamponade physiology on views obtained. Will request further echo views for the mitral and tricuspid valve inflow. also repeat limited echo tomorrow for follow up on pericardial effusion. CAD: Previous stents. Continue Plavix, statin, beta radha, MARIA G inhibitor. status post cath which shows previous LAD stent to be occluded. no intervention. We got old records from previous hospital which showed that the LAD stent is chronically occluded. Patient does have proximal LAD disease following which there is a large septal trap operator as well as a first diagonal artery. If the patient develops further chest pain we will consider PCI to the proximal LAD into the first diagonal. However if the patient's rest of the stay is unremarkable we will defer to his primary supervisor contingents. Cardiomyopathy: EF 20-25%. Not in congestive heart failure on examination. Continue above therapy. Atrial fibrillation: Sinus rhythm. Pulse was regular. Continue warfarin. Thank you for your consultation. Please call me if you have any questions. Eboni Nugent MD, FACP, FACC, FSCAI, FHRS, CCDS Interventional Cardiology Cardiac Electrophysiology Vascular Medicine and Endovascular Interventions Amaya NUGENT MD Apr 10, 2017 2:59 pm
--- NOTE | 2017-04-10 15:20 | Occupational Ther Daily Note ---
OT Current Status-Daily Note Subjective Pt awake, lying in bed. Pt stated that the physician came and discussed his heart and that there was fluid around it. Pt is supposed to get an echo tomorrow. Pt agreed to therapy. No c/o pain. Mental Status/Objective Patient Orientation: Person, Place, Time, Situation Functional [place] Measure 0=Not Assessed/NA 4=Minimal Assistance 1=Total Assistance 5=Supervision or Setup 2=Maximal Assistance 6=Modified [place] 3=Moderate Assistance 7=Complete [place] ADL-Treatment Functional [place] Measure 0=Not Assessed/NA 4=Minimal Assistance 1=Total Assistance 5=Supervision or Setup 2=Maximal Assistance 6=Modified [place] 3=Moderate Assistance 7=Complete IndependenceIRFPAI Quality Coding Scale 6 Independent with activity with or without an assistive device 5 Patient requires set up or clean up by helper. Patient completes activity by themselves 4 Supervision or touching assist (CGA). [place] provide cues , steadying assist 3 The helper provides less than half the effort to complete the activity 2 The helper provides more than half the effort to complete the activity 1 Dependent. The helper does all the effort to complete an activity 7 Patient refused to complete or attempt activity 9 The patient did not perform the activity before the current illness or injury 88 Not attempted due to Medical conditions or safety concerns Other Treatment Massage and stretch to L shldr completed. Pt has discomfort with shldr flexion starting at 80 degrees and 25 degrees abduction. After massage and stretching, pt was able to achieve 90 degrees shldr flexion and 35 degrees shldr abduction. Pt also demonstrated pain with forearm supination at elbow and mid-forearm. After therapy, pt lying in bed with call light/phone in reach. All needs met in room. OT Short Term Goals Short Term Goals Time Frame: Apr 12, 2017 Bathing(FIM): 4 Upper Body Dressing(FIM): 4 Lower Body Dressing(FIM): 4 Toileting(FIM): 4 Transfers (B,C,W/C) (FIM): 4 Shower Transfer(FIM): 4 Additional Short Term Goals: 1-Demonstrate ADL Tasks, 2-Verbalize Understanding , 3-ImproveStrength/Madalyn 1=Demonstrate adherence to instructed precautions during ADL tasks. 2=Patient will verbalize/demonstrate understanding of assistive devices/ modifications for ADL. 3=Patient will improve strength/tolerance for activity to enable patient to perform ADL's. OT Alf Goals Drag Out Man Goals Time Frame: Apr 26, 2017 Eating (FIM): 6 Eating (QC): 6 Groomin Oral Hygiene (QC): 6 Bathing(FIM): 5 Shower/Bathe Self (QC): 5 Upper Body Dressing(FIM): 5 Upper Body Dressing (QC): 5 Lower Body Dressing(FIM): 5 Lower Body Dressing (QC): 4 On/Off Footwear (QC): 5 Toileting(FIM): 6 Toileting Hygiene (QC): 6 Toilet/Commode Transfer(FIM): 6 Toilet/Commode Transfer (QC): 6 Shower Transfer(FIM): 5 Additional Goals: 1-Demonstrate ADL Tasks, 2-Verbalize Understanding, 3- ImproveStrength/Madalyn 1=Demonstrate adherence to instructed precautions during ADL tasks. 2=Patient will verbalize/demonstrate understanding of assistive devices/ modifications for ADL. 3=Patient will improve strength/tolerance for activity to enable patient to perform ADL's. OT Education/Plan Problem List/Assessment Pt to benefit from skilled OT intervention for ADL training, transfers, strengthening, and home safety education to maximize level of function and allow safe discharge home. Discharge Recommendations Plan/Recommendations: Continue POC Treatment Plan/Plan of Care Patient would benefit from OT for education, treatment and training to promote independence in ADL's, mobility, safety and/or upper extremity function for ADL' s. Plan of Care: ADL Retraining, Functional Mobility, Group Exercise/Act as Ind, UE Funct Exercise/Act Treatment Duration: Apr 26, 2017 Frequency: At least 5 of 7 days/Wk (IRF) Estimated Hrs Per Day: 1.5 hours per day Agreement: Yes Rehab Potential: Good Time/GCodes Start Time: 12:00 Stop Time: 12:30 Total Time Billed (hr/min): 30 Billed Treatment Time 1 visit-FA 2 (30 min) TULIO BERGMAN Apr 10, 2017 15:19
--- NOTE | 2017-04-10 16:26 | Physical Therapy Daily Note ---
PT Daily Note-Current Subjective Agreeable to PT. wants to walk. concerned that his wheelchair brake is not holding. Transfers Functional [place] Measure 0=Not Assessed/NA 4=Minimal Assistance 1=Total Assistance 5=Supervision or Setup 2=Maximal Assistance 6=Modified [place] 3=Moderate Assistance 7=Complete IndependenceIRFPAI Quality Coding Scale 6 Independent with activity with or without an assistive device 5 Patient requires set up or clean up by helper. Patient completes activity by themselves 4 Supervision or touching assist (CGA). [place] provide cues , steadying assist 3 The helper provides less than half the effort to complete the activity 2 The helper provides more than half the effort to complete the activity 1 Dependent. The helper does all the effort to complete an activity 7 Patient refused to complete or attempt activity 9 The patient did not perform the activity before the current illness or injury 88 Not attempted due to Medical conditions or safety concerns Weight Bearing Right Lower Extremity: Right Full Weight Bearing Left Lower Extremity: Left Full Weight Bearing Treatments Sit to stand all attempts with CGA and pt took extra time to make the transition. Pt ambulated 50 ft x 3 with donnie walker with close CGA. Worked on functional sit to from stand transfers and also worked on wheelchair and switched him to one of our chairs with a better working brake. Assessment Current Status: Good Progress Slow gait and unsteady but no darlin LOB. Pt progressing with mobilty. PT Short Term Goals Short Term Goals Time Frame: Apr 12, 2017 Transfers (B,C,W/C) (FIM): 4 (met) Gait (FIM): 4 Distance (FIM): 3=150 ft Gait Assistive Device: Walker Donnie Wheelchair distance (FIM): 3=150 ft Wheelchair Distance: 150'x2 Wheelchair Level of Assist: 6 Stairs (FIM): 3 # of Steps: 12 PT Business Analytics Analyst Goals [facility] Goals PT [facility] Goals Time Frame: May 02, 2017 Transfers (B,C,W/C) (FIM): 6 Sit to Lying (QC): 6 Lying-Sitting on Side/Bed(QC): 6 Sit to Stand (QC): 6 Rollin Roll Left to Right (QC): 6 Chair/Uvd-iq-Gmnpp Xfer(QC): 6 Car Transfer (QC): 4 Does the Patient Walk: Yes Gait (FIM): 4 Gait distance (FIM): 3=150 ft Distance: 150 Walk 10 feet (QC): 4 Walk 10ft-Uneven Surface(QC): 4 Walk 50ft with 2 Turns (QC): 4 Walk 150 ft (QC): 4 Gait Level of Assist: 4 Gait Assistive Device: Walker Donnie Does the Pt use WC or Scooter?: Yes Wheelchair (FIM): 6 Wheelchair distance (FIM): 3=150 ft Distance: 250 Wheelchair Level of Assist: 6 Wheel 50 feet with 2 turns (QC: 6 Stairs (FIM): 4 # of Steps: 12 1 Step (curb) (QC): 3 4 Steps (QC): 3 12 Steps (QC): 3 Stairs Level Of Assist: 4 Picking up an Object (QC): 2 PT Plan Problem List Problem List: Activity Tolerance, Functional Strength, Safety, Balance, Gait, Transfer Treatment/Plan Treatment Plan: Continue Plan of Care Treatment Plan: Bed Mobility, Education, Functional Activity Madalyn, Functional Strength, Group Therapy, Gait, Safety, Therapeutic Exercise, Transfers Treatment Duration: Apr 26, 2017 Frequency: At least 5 of 7 days/Wk (IRF) Estimated Hrs Per Day: 1.5 hours per day Patient and/or Family Agrees t: Yes Safety Risks/Education Patient Education: Transfer Techniques, Safety Issues Teaching Recipient: Patient Teaching Methods: Demonstration, Discussion Response to Teaching: Verbalize Understanding Time/GCodes Time In: 1530 Time Out: 1616 Total Billed Treatment Time: 46 Total Billed Treatment visit Gt 30 FA 16 TULIO SOUSA PT Apr 10, 2017 16:26
[2017-04-10] MEDS: DICLOFENAC 1% GEL 100 GM (VOLTAREN) TUBE TOP SCH ×2 (16:47→21:12)
--- NOTE | 2017-04-10 17:19 | Wound Care Progress Note ---
Subjective Subjective Subjective/Events-last exam The patient is a pleasant 61-year-old male with a previous left-sided stroke and hemiplegia. He has diminished sensation and limited movement of his left lower extremity. He has significant contracture of the left hand. Over the last several weeks, he has developed painful blisters on the plantar surface of his left heel, left great toe, and the flexor surface of his left fourth digit. This latter is still a blister. There remains no residual ulcer on the heel or great toe. There is no surrounding erythema in any of the locations. Past Medical History. This is pertinent for recent hospitalization for hyponatremia. At that time he was identified to have an ejection fraction of 20% . Urinary artery disease, congestive heart failure, stroke with left-sided weakness, COPD pacemaker and atrial fibrillation. Family history: Positive for cancer. Social history patient is a single nonsmoker. He is disabled. Review of Systems Date Seen by Provider: Apr 10, 2017 Time Seen by Provider: 16:45 General: No Chills Pulmonary: No Dyspnea Cardiovascular: No: Chest Pain Neurological: Weakness, Numbness Objective Exam Last Set of Vital Signs Vital Signs Date Time Temp Pulse Resp B/P (MAP) Pulse Ox O2 Delivery O2 Flow Rate FiO2 04/10/17 09:00 Room Air 04/10/17 05:09 98.2 78 18 147/86 97 Capillary Refill : I&O Intake and Output 04/11/17 00:00 Intake Total 600 ml Output Total 1375 ml Balance -775 ml Intake Oral 600 ml Output Urine Total 1375 ml General: Alert, No Acute Distress Lungs: Normal Air Movement Extremities: Other (there is some callus from leftover ruptured blisters on the left heel and left great toe.) Skin: Other (there is an active purplish blister on the flexor aspect of the proximal phalanx of the left fourth finger. There is no surrounding erythema.) Results Lab Laboratory Tests 04/10/17 05:45: Prothrombin Time 18.0H, INR Comment 1.5H Assessment/Plan Assessment/Plan Assessment/Plan 1. Apparent dyshidrotic eczema of the left fourth finger, and possible previous episodes of the left heel and left great toe. 2. Stroke with left hemiplegia. 3. Congestive heart failure, coronary artery disease, with ejection fraction of 20%. Plan: And D ointment to the left leg. Triamcinolone to the left hand, observation. CONCEPCION,VERNA G MD Apr 10, 2017 17:19
[2017-04-10] MEDS: A & D OINT 60 GM TUBE TOP SCH (18:28)
[2017-04-10] MEDS: warFARin 3 MG (COUMADIN) TAB PO SCH (18:29)
[2017-04-10 18:46] VITALS: BP 151/87
[2017-04-10] MEDS: VALSARTAN 80 MG (DIOVAN) TAB PO SCH (21:10)
[2017-04-10] MEDS: FINASTERIDE (PROSCAR) 5 MG TAB PO SCH (21:10)
[2017-04-10] MEDS: OLANZapine 5 MG (ZyPREXA) TAB PO SCH (21:10)
[2017-04-10] MEDS: LORATADINE (CLARITIN) 10 MG TAB PO SCH (21:10)
[2017-04-10] MEDS: TRIAMCINOLONE 0.5% CR (KENALOG) 15 GM TUBE TOP SCH (21:11)
[2017-04-11] MEDS: ACETAMINOPHEN 325 MG TABLET/CAPLET (TYLENOL) PO PRN (02:38)
[2017-04-11 05:00] VITALS: BP 125/69
[2017-04-11 05:45] LABS: INR 1.5 (0.8-1.4); PROTHROMBIN TIME PATIENT 18.1 SEC (12.2-14.7)
--- NOTE | 2017-04-11 08:52 | PM & R (SOAP) Progress Note ---
Subjective Time Seen by Provider: 07:45 Subjective/Events-last exam Patient was seen in his room this AM Appreciate DR Quiroz note and orders, Patient CGA for transfers Objective Exam Last Set of Vital Signs Vital Signs Date Time Temp Pulse Resp B/P (MAP) Pulse Ox O2 Delivery O2 Flow Rate FiO2 04/11/17 05:00 99.2 90 20 125/69 97 Room Air Capillary Refill : I&O Intake and Output 04/12/17 00:00 Intake Total 450 ml Output Total 600 ml Balance -150 ml Intake Oral 450 ml Output Urine Total 600 ml General: Alert, No Acute Distress HEENT: Atraumatic, PERRLA, EOMI, Mucous Memb Moist/[place] Neck: Supple, No JVD Lungs: Normal Air Movement Heart: Regular Rate Abdomen: Normal Bowel Sounds, Soft, No Tenderness Extremities: Other ( Blister flex aspect of fourth left finger and caalous over plantar aspect of left foot) Skin: Other (there is an active purplish blister on the flexor aspect of the proximal phalanx of the left fourth finger. There is no surrounding erythema.) Neuro: Other (Left HP) Results Lab Laboratory Tests 04/09/17 05:25: Prothrombin Time 19.1H, INR Comment 1.6H 04/10/17 05:45: Prothrombin Time 18.0H, INR Comment 1.5H 04/11/17 05:25: Prothrombin Time 18.1H, INR Comment 1.5H Assessment/Plan Assessment General debil secondary to dehydration Late effects of stroke with Left HP Coronary artery D Chronic anticoagulation Cardiology managing Fungal groin rash Blister left foot plantar aspect and left finger Plan Continue PT/OT F/U with Cardiology Team Conference held 04-09-17 -See report for full functional update and POC and ELOS Patient request an order for new w/c-last one was bought by patient when he was without insurance - will follow up-RX provided Treat Groin rash Dr House consulted re blisters-done appreciate his assistance GRAEME GRESHAM MD Apr 11, 2017 08:52
[2017-04-11] MEDS: CIPROFLOXACIN 500 MG (CIPRO) TABLET PO SCH (08:54)
[2017-04-11] MEDS: ALFUZOSIN HCL 10 MG TAB (UROXATRAL) PO SCH (08:54)
[2017-04-11] MEDS: FAMOTIDINE 20 MG (PEPCID) TABLET PO SCH ×2 (08:54→20:22)
[2017-04-11] MEDS: DOCUSATE SODIUM 100 MG (COLACE) CAP PO SCH (08:54)
[2017-04-11] MEDS: CARVEDILOL 3.125 MG (COREG) TABLET PO SCH ×2 (08:54→20:22)
[2017-04-11] MEDS: CLOPIDOGREL 75 MG (PLAVIX) TABLET PO SCH (08:54)
[2017-04-11] MEDS: ATORVASTATIN 40 MG (LIPITOR) TABLET PO SCH (08:54)
[2017-04-11] MEDS: MAGNESIUM OXIDE (MAG-OX)400 MG TAB PO SCH (08:54)
--- NOTE | 2017-04-11 10:13 | Physical Therapy Daily Note ---
PT Daily Note-Current Subjective Patient in wheelchair pre tx, agrees to PT, no complaints of pain but has been having spasms in his left arm and hand. Appearance Patient in wheelchair post tx, he is mod I with wheelchair mobility, going back to his room on his own. Mental Status Patient Orientation: Normal For Age Transfers Functional [place] Measure 0=Not Assessed/NA 4=Minimal Assistance 1=Total Assistance 5=Supervision or Setup 2=Maximal Assistance 6=Modified [place] 3=Moderate Assistance 7=Complete IndependenceIRFPAI Quality Coding Scale 6 Independent with activity with or without an assistive device 5 Patient requires set up or clean up by helper. Patient completes activity by themselves 4 Supervision or touching assist (CGA). [place] provide cues , steadying assist 3 The helper provides less than half the effort to complete the activity 2 The helper provides more than half the effort to complete the activity 1 Dependent. The helper does all the effort to complete an activity 7 Patient refused to complete or attempt activity 9 The patient did not perform the activity before the current illness or injury 88 Not attempted due to Medical conditions or safety concerns Transfers (B, C, W/C) (FIM): 4 Sit to/from Stand: 4 Bed to/from Chair: 4 CGA, good safety and positioning Weight Bearing Right Lower Extremity: Right Full Weight Bearing Left Lower Extremity: Left Full Weight Bearing Gait Training Gait (FIM): 2 Distance: 50'x3 Gait Level of Assist: 4 Gait Persons Needed: 1 Gait Assistive Device: Handheld Assist slow, step-to gait with right stepping to left Wheelchair Training Does the Pt Use a Wheelchair?: Yes Wheelchair (FIM): 6 Distance: 200'x2 Type of Wheelchair: Manual Exercises Seated Therapy Exercises: Long arc quads, Hip flexion Seated Reps: 20 sit to stand 3 sets of 5, AAROM on the left side exercises above Treatments transfers, ambulation, functional strengthening, wheelchair mobility Assessment Current Status: Fair Progress improving mobility PT Short Term Goals Short Term Goals Time Frame: Apr 12, 2017 Transfers (B,C,W/C) (FIM): 4 (met) Gait (FIM): 4 Distance (FIM): 3=150 ft Gait Assistive Device: Walker Donnie Wheelchair distance (FIM): 3=150 ft Wheelchair Distance: 150'x2 Wheelchair Level of Assist: 6 Stairs (FIM): 3 # of Steps: 12 PT [facility] Goals [facility] Goals PT [facility] Goals Time Frame: May 02, 2017 Transfers (B,C,W/C) (FIM): 6 Sit to Lying (QC): 6 Lying-Sitting on Side/Bed(QC): 6 Sit to Stand (QC): 6 Rollin Roll Left to Right (QC): 6 Chair/Jay-ya-Oycsq Xfer(QC): 6 Car Transfer (QC): 4 Does the Patient Walk: Yes Gait (FIM): 4 Gait distance (FIM): 3=150 ft Distance: 150 Walk 10 feet (QC): 4 Walk 10ft-Uneven Surface(QC): 4 Walk 50ft with 2 Turns (QC): 4 Walk 150 ft (QC): 4 Gait Level of Assist: 4 Gait Assistive Device: Walker Donnie Does the Pt use WC or Scooter?: Yes Wheelchair (FIM): 6 Wheelchair distance (FIM): 3=150 ft Distance: 250 Wheelchair Level of Assist: 6 Wheel 50 feet with 2 turns (QC: 6 Stairs (FIM): 4 # of Steps: 12 1 Step (curb) (QC): 3 4 Steps (QC): 3 12 Steps (QC): 3 Stairs Level Of Assist: 4 Picking up an Object (QC): 2 PT Plan Problem List Problem List: Activity Tolerance, Functional Strength, Safety, Balance, Gait, Transfer, Bed Mobility, ROM Treatment/Plan Treatment Plan: Continue Plan of Care Treatment Plan: Bed Mobility, Education, Functional Activity Madalyn, Functional Strength, Group Therapy, Gait, Safety, Therapeutic Exercise, Transfers Treatment Duration: Apr 26, 2017 Frequency: At least 5 of 7 days/Wk (IRF) Estimated Hrs Per Day: 1.5 hours per day Patient and/or Family Agrees t: Yes Safety Risks/Education Patient Education: Gait Training, Transfer Techniques, Correct Positioning, W/ C Management, Safety Issues Teaching Recipient: Patient Teaching Methods: Demonstration, Discussion Response to Teaching: Reinforcement Needed Time/GCodes Time In: 930 Time Out: 1015 Total Billed Treatment Time: 45 Total Billed Treatment 1 visit [facility] 10' EX 15' GT 20' ADONAY MULLEN PT Apr 11, 2017 10:13
--- NOTE | 2017-04-11 10:23 | Occupational Ther Daily Note ---
OT Current Status-Daily Note Subjective Pt in bed, agrees to treatment. Pt has no reports of pain. Mental Status/Objective Functional [place] Measure 0=Not Assessed/NA 4=Minimal Assistance 1=Total Assistance 5=Supervision or Setup 2=Maximal Assistance 6=Modified [place] 3=Moderate Assistance 7=Complete [place] ADL-Treatment Pt supine to sit with minimal assistance. Transfer EOB to w/c with CGA. Pt shaved with set up while seated in w/c. Pt used urinal with set up. Pt requests shower this morning. Transfer w/c <-> shower bench with minimal assistance. Pt requires minimal assistance for lower body bathing. Don pullover shirt with assist to thread left UE into sleeve. Assist required to thread LE into pant legs. Pt stood with minimal assistance for pant hike. Pt combed hair with set up while seated in w/c. Pt moves slowly this am and requires increased time for all ADL activities. Pt sitting in w/c with needs met after session. Functional [place] Measure 0=Not Assessed/NA 4=Minimal Assistance 1=Total Assistance 5=Supervision or Setup 2=Maximal Assistance 6=Modified [place] 3=Moderate Assistance 7=Complete IndependenceIRFPAI Quality Coding Scale 6 Independent with activity with or without an assistive device 5 Patient requires set up or clean up by helper. Patient completes activity by themselves 4 Supervision or touching assist (CGA). [place] provide cues , steadying assist 3 The helper provides less than half the effort to complete the activity 2 The helper provides more than half the effort to complete the activity 1 Dependent. The helper does all the effort to complete an activity 7 Patient refused to complete or attempt activity 9 The patient did not perform the activity before the current illness or injury 88 Not attempted due to Medical conditions or safety concerns Grooming (FIM): 5 Bathing (FIM): 4 Shower/Bathe Self (QC): 3 Upper Body (FIM): 4 Upper Body Dressing (QC): 3 Lower Body Dressing (FIM): 3 Lower Body Dressing (QC): 3 Shower Transfer(FIM): 4 OT Short Term Goals Short Term Goals Time Frame: Apr 12, 2017 Bathing(FIM): 4 Upper Body Dressing(FIM): 4 Lower Body Dressing(FIM): 4 Toileting(FIM): 4 Transfers (B,C,W/C) (FIM): 4 (met) Shower Transfer(FIM): 4 Additional Short Term Goals: 1-Demonstrate ADL Tasks, 2-Verbalize Understanding , 3-ImproveStrength/Madalyn 1=Demonstrate adherence to instructed precautions during ADL tasks. 2=Patient will verbalize/demonstrate understanding of assistive devices/ modifications for ADL. 3=Patient will improve strength/tolerance for activity to enable patient to perform ADL's. OT Manager Public Goals Long-Term Goals Time Frame: Apr 26, 2017 Eating (FIM): 6 Eating (QC): 6 Groomin Oral Hygiene (QC): 6 Bathing(FIM): 5 Shower/Bathe Self (QC): 5 Upper Body Dressing(FIM): 5 Upper Body Dressing (QC): 5 Lower Body Dressing(FIM): 5 Lower Body Dressing (QC): 4 On/Off Footwear (QC): 5 Toileting(FIM): 6 Toileting Hygiene (QC): 6 Toilet/Commode Transfer(FIM): 6 Toilet/Commode Transfer (QC): 6 Shower Transfer(FIM): 5 Additional Goals: 1-Demonstrate ADL Tasks, 2-Verbalize Understanding, 3- ImproveStrength/Madalyn 1=Demonstrate adherence to instructed precautions during ADL tasks. 2=Patient will verbalize/demonstrate understanding of assistive devices/ modifications for ADL. 3=Patient will improve strength/tolerance for activity to enable patient to perform ADL's. OT Education/Plan Problem List/Assessment Pt to benefit from skilled OT intervention for ADL training, transfers, strengthening, and home safety education to maximize level of function and allow safe discharge home. Discharge Recommendations Plan/Recommendations: Continue POC Treatment Plan/Plan of Care Patient would benefit from OT for education, treatment and training to promote independence in ADL's, mobility, safety and/or upper extremity function for ADL' s. Plan of Care: ADL Retraining, Functional Mobility, Group Exercise/Act as Ind, UE Funct Exercise/Act Treatment Duration: Apr 26, 2017 Frequency: At least 5 of 7 days/Wk (IRF) Estimated Hrs Per Day: 1.5 hours per day Agreement: Yes Rehab Potential: Good Time/GCodes Start Time: 08:00 Stop Time: 09:00 Total Time Billed (hr/min): 60 Billed Treatment Time 1 visit, ADLx4(60minutes) RASHIDA ORTIZ OT Apr 11, 2017 10:22
[2017-04-11] MEDS: TRIAMCINOLONE 0.5% CR (KENALOG) 15 GM TUBE TOP SCH ×2 (10:50→20:23)
[2017-04-11] MEDS: A & D OINT 60 GM TUBE TOP SCH (10:50)
[2017-04-11] MEDS: DICLOFENAC 1% GEL 100 GM (VOLTAREN) TUBE TOP SCH ×4 (10:50→20:26)
[2017-04-11] MEDS: BETAMETHASONE/CLOTRIM CREAM (LOTRISONE) 45 GM TP SCH ×2 (10:51→20:23)
[2017-04-11 14:46] VITALS: BP 108/64
--- NOTE | 2017-04-11 16:17 | Therapy Group Daily Note ---
Therapy Daily Group Note Exercises LE Seated Exercise, UE Exercise Other/Notes Pt maneuvered w/c to [facility] for OT/PT group. Group consisted of introductions (name, place living, favorite game as a kid), socialization, UE/ LE seated exercises, activities that focus on core strength, dynamic sitting, fine motor with UE AROM, per discussions during activities and opening containers/packages. Pt interacted appropriately with peers in group activities and introductions. Pt required modifications with activities due to decreased ROM. Pt completed UE/LE exercises well, unable to complete all with L UE due to decreased ROM. Pt was able to open packages and containers using R hand. After therapy, pt sitting in recliner with call light/phone in reach. All needs met in room. Start Time: 13:00 Stop Time: 14:30 Total Billed Treatment Time: 90 Total Billed Treatment 1-GRP TULIO BERGMAN Apr 11, 2017 16:17
[2017-04-11] MEDS: ALPRAZolam 0.5 MG (XANAX) TAB PO PRN ×2 (16:54→23:18)
[2017-04-11] MEDS: warFARin 3 MG (COUMADIN) TAB PO SCH (17:01)
--- NOTE | 2017-04-11 18:10 | Cardiology Progress Note ---
Cardiology SOAP Progress Note Subjective: No cardiac complaints. Objective: I&O/Vital Signs Vital Sign - Last 12Hours 04/11/17 04/11/17 09:00 14:46 Temp 98.8 Pulse 83 Resp 20 B/P (MAP) 108/64 Pulse Ox 100 O2 Delivery Room Air Room Air Weight (Pounds): 147 Weight (Ounces): 0.6 Weight (Calculated Kilograms): 66.118663 Constitutional: No appears stated age, No AAO x 3, No apparent distress, No PERRL, No well-developed, No well-nourished, No other Respiratory: No accessory muscle use, No respiratory distress, No chest tender , No chest expansion is symmetric, No chest is bilaterally symmetric, No lungs clear to percussion, No lungs clear to auscultation, No crackles, No rhonchi, No rales, No stridor, No wheezing, No pleural rub, No other Cardiovascular: regular rate-rhythm, No irregularly irregular, No extra beats, No parasternal heave is noted, No JVD, No edema, No bradycardia, No tachycardia , No point of maximal impulse, No cardiac thrills are palpable, S1 and S2, No gallop/S3, No gallop/S4, No diastolic murmur, No systolic murmur, No friction rub, No click, No other Gastrointestional: No tender, No soft, No round, No distended, No pulsatile mass, No organomegaly, No guarding, No rebound, No tenderness, No hernia, No mass, No audible bowel sounds, No abnormal bowel sounds, No abdominal bruits, No spleenomegaly, No other Extremities: No normal range of motion, No non-tender, No normal inspection, No pedal edema, No calf tenderness, No normal capillary refill, No pelvis stable , No calf tenderness, No inflammation, No pedal edema, No slow capillary refill , No swelling, No other, No abrasion, No clubbing, No cyanosis, No ecchymosis, No laceration, No no lower extremity edema bilateral, No significant edema, No tenderness, No wound Neurologic/Psychiatric: alert, normal mood/affect, oriented x 3, motor weakness Skin: No normal color, No warm/dry, No cyanosis, No cool, No diaphoresis, No damp, No ecchymosis, No jaundice, No mottled, No pallor, No rash, No tattoos/ piercings, No ulcerations, No rash on exposed areas, No ulcerations on exposed areas, No other Results/Procedures: Labs Laboratory Tests 04/11/17 05:25: Prothrombin Time 18.1H, INR Comment 1.5H A/P: Assessment/Dx: CVA, CAD, pericardial effusion, cardiomyopathy, atrial fibrillation, CHF, weakness. Plan: Weakness: Inpatient rehabilitation. Hyponatremia: Defer to primary team CVA with residual deficit continue on Plavix. Pericardial effusion:Echocardiogram shows mild to moderate pericardial effusion. No significant tamponade physiology on views obtained. Will request further echo views for the mitral and tricuspid valve inflow. also repeat limited echo for follow up on pericardial effusion. CAD: Previous stents. Continue Plavix, statin, beta radha, MARIA G inhibitor. status post cath which shows previous LAD stent to be occluded. no intervention. We got old records from previous hospital which showed that the LAD stent is chronically occluded. Patient does have proximal LAD disease following which there is a large septal scarfer as well as a first diagonal artery. If the patient develops further chest pain we will consider PCI to the proximal LAD into the first diagonal. However if the patient's rest of the stay is unremarkable we will defer to his primary closing specialist. Cardiomyopathy: EF 20-25%. Not in congestive heart failure on examination. Continue above therapy. Atrial fibrillation: Sinus rhythm. Pulse was regular. Continue warfarin. Thank you for your consultation. Please call me if you have any questions. Eboni Nugent MD, FACP, FACC, FSCAI, FHRS, CCDS Interventional Cardiology Cardiac Electrophysiology Vascular Medicine and Endovascular Interventions Amaya NUGENT MD Apr 11, 2017 6:10 pm
[2017-04-11 18:52] VITALS: BP 109/70
[2017-04-11 20:20] VITALS: BP 131/72
[2017-04-11] MEDS: FINASTERIDE (PROSCAR) 5 MG TAB PO SCH (20:22)
[2017-04-11] MEDS: VALSARTAN 80 MG (DIOVAN) TAB PO SCH (20:22)
[2017-04-11] MEDS: OLANZapine 5 MG (ZyPREXA) TAB PO SCH (20:22)
[2017-04-11] MEDS: LORATADINE (CLARITIN) 10 MG TAB PO SCH (20:22)
[2017-04-12 05:00] VITALS: BP 95/55
[2017-04-12] MEDS: ACETAMINOPHEN 325 MG TABLET/CAPLET (TYLENOL) PO PRN (05:09)
[2017-04-12 06:13] LABS: INR 1.5 (0.8-1.4); PROTHROMBIN TIME PATIENT 17.8 SEC (12.2-14.7)
[2017-04-12 08:20] VITALS: BP 106/64
[2017-04-12] MEDS: ALFUZOSIN HCL 10 MG TAB (UROXATRAL) PO SCH (09:27)
[2017-04-12] MEDS: DOCUSATE SODIUM 100 MG (COLACE) CAP PO SCH (09:27)
[2017-04-12] MEDS: MAGNESIUM OXIDE (MAG-OX)400 MG TAB PO SCH (09:27)
[2017-04-12] MEDS: ATORVASTATIN 40 MG (LIPITOR) TABLET PO SCH (09:27)
[2017-04-12] MEDS: CLOPIDOGREL 75 MG (PLAVIX) TABLET PO SCH (09:27)
[2017-04-12] MEDS: FAMOTIDINE 20 MG (PEPCID) TABLET PO SCH ×2 (09:27→20:04)
[2017-04-12] MEDS: A & D OINT 60 GM TUBE TOP SCH (09:28)
[2017-04-12] MEDS: TRIAMCINOLONE 0.5% CR (KENALOG) 15 GM TUBE TOP SCH ×2 (09:28→20:05)
[2017-04-12] MEDS: DICLOFENAC 1% GEL 100 GM (VOLTAREN) TUBE TOP SCH ×4 (09:28→20:05)
[2017-04-12] MEDS: BETAMETHASONE/CLOTRIM CREAM (LOTRISONE) 45 GM TP SCH ×2 (09:29→20:05)
[2017-04-12] MEDS: CARVEDILOL 3.125 MG (COREG) TABLET PO SCH ×2 (09:33→20:04)
[2017-04-12 18:00] VITALS: BP 110/65
[2017-04-12] MEDS: warFARin 3 MG (COUMADIN) TAB PO SCH (18:26)
[2017-04-12] MEDS: OLANZapine 5 MG (ZyPREXA) TAB PO SCH (20:04)
[2017-04-12] MEDS: FINASTERIDE (PROSCAR) 5 MG TAB PO SCH (20:04)
[2017-04-12] MEDS: VALSARTAN 80 MG (DIOVAN) TAB PO SCH (20:04)
[2017-04-12] MEDS: LORATADINE (CLARITIN) 10 MG TAB PO SCH (20:04)
[2017-04-12] MEDS: ALPRAZolam 0.5 MG (XANAX) TAB PO PRN (22:04)
[2017-04-13 05:12] VITALS: BP 118/71
[2017-04-13 06:18] LABS: INR 1.3 (0.8-1.4); PROTHROMBIN TIME PATIENT 16.7 SEC (12.2-14.7)
[2017-04-13] MEDS: CARVEDILOL 3.125 MG (COREG) TABLET PO SCH ×2 (07:36→19:59)
[2017-04-13] MEDS: ALFUZOSIN HCL 10 MG TAB (UROXATRAL) PO SCH (07:36)
[2017-04-13] MEDS: ATORVASTATIN 40 MG (LIPITOR) TABLET PO SCH (07:36)
[2017-04-13] MEDS: DOCUSATE SODIUM 100 MG (COLACE) CAP PO SCH (07:36)
[2017-04-13] MEDS: MAGNESIUM OXIDE (MAG-OX)400 MG TAB PO SCH (07:36)
[2017-04-13] MEDS: FAMOTIDINE 20 MG (PEPCID) TABLET PO SCH ×2 (07:36→19:59)
[2017-04-13] MEDS: TRIAMCINOLONE 0.5% CR (KENALOG) 15 GM TUBE TOP SCH ×2 (07:37→20:02)
[2017-04-13] MEDS: BETAMETHASONE/CLOTRIM CREAM (LOTRISONE) 45 GM TP SCH ×2 (07:39→20:01)
[2017-04-13] MEDS: BISACODYL 10 MG SUPP (DULCOLAX) PR PRN (07:42)
[2017-04-13] MEDS: CLOPIDOGREL 75 MG (PLAVIX) TABLET PO SCH (07:44)
[2017-04-13] MEDS: ALPRAZolam 0.5 MG (XANAX) TAB PO PRN ×2 (07:44→19:59)
[2017-04-13] MEDS: A & D OINT 60 GM TUBE TOP SCH (07:46)
[2017-04-13] MEDS: DICLOFENAC 1% GEL 100 GM (VOLTAREN) TUBE TOP SCH ×4 (08:00→20:02)
[2017-04-13] MEDS: warFARin 3 MG (COUMADIN) TAB PO SCH (17:02)
[2017-04-13 17:40] VITALS: BP 126/73
[2017-04-13] MEDS: ACET/BUTAL/CAFF (FIORICET) TAB PO PRN (17:58)
[2017-04-13] MEDS: VALSARTAN 80 MG (DIOVAN) TAB PO SCH (19:59)
[2017-04-13] MEDS: OLANZapine 5 MG (ZyPREXA) TAB PO SCH (19:59)
[2017-04-13] MEDS: FINASTERIDE (PROSCAR) 5 MG TAB PO SCH (19:59)
[2017-04-13] MEDS: LORATADINE (CLARITIN) 10 MG TAB PO SCH (20:00)
[2017-04-13 20:16] VITALS: BP 143/89
[2017-04-13] MEDS: CYCLOBENZAPRINE 10 MG (FLEXERIL) TAB PO PRN (23:44)
[2017-04-14 05:53] LABS: INR 1.3 (0.8-1.4); PROTHROMBIN TIME PATIENT 15.9 SEC (12.2-14.7)
[2017-04-14 06:04] VITALS: BP 125/79
[2017-04-14] MEDS: ACETAMINOPHEN 325 MG TABLET/CAPLET (TYLENOL) PO PRN (08:02)
[2017-04-14] MEDS: LACTULOSE SYRUP 10GM/15ML (ENULOSE) 30ML UDC PO SCH (08:03)
--- NOTE | 2017-04-14 08:35 | Physical Therapy Daily Note ---
PT Daily Note-Current Subjective Pt. in bed and c/o headache on right side neck posteriorly at 8/10. Has requested Tylenol. After moist heat for approx 8min monitored pt. states pain is reduced to 4/10 Pain Numeric Pain Scale: 4 Location: Right Location Body Site: Neck Pain Description: Ache Mental Status Patient Orientation: Normal For Age Attachments: Henry Catheter Transfers Functional [place] Measure 0=Not Assessed/NA 4=Minimal Assistance 1=Total Assistance 5=Supervision or Setup 2=Maximal Assistance 6=Modified [place] 3=Moderate Assistance 7=Complete IndependenceIRFPAI Quality Coding Scale 6 Independent with activity with or without an assistive device 5 Patient requires set up or clean up by helper. Patient completes activity by themselves 4 Supervision or touching assist (CGA). [place] provide cues , steadying assist 3 The helper provides less than half the effort to complete the activity 2 The helper provides more than half the effort to complete the activity 1 Dependent. The helper does all the effort to complete an activity 7 Patient refused to complete or attempt activity 9 The patient did not perform the activity before the current illness or injury 88 Not attempted due to Medical conditions or safety concerns Transfers (B, C, W/C) (FIM): 3 Scootin Rollin Supine to/from Sit: 3 Sit to/from Stand: 4 states he sleeps in recliner at home and never bed. requires assist from lower surfaces sit to stand Weight Bearing Right Lower Extremity: Right Full Weight Bearing Left Lower Extremity: Left Full Weight Bearing Gait Training Does the Patient Walk?: Yes Gait (FIM): 3 Distance (FIM): 3=150 ft Gait Level of Assist: 4 Gait Persons Needed: 1 Gait Assistive Device: Walker Donnie slow,states he feels he is going forward and wants assistance, sequences R,cane , L but no darlin LOB Wheelchair Training Wheelchair (FIM): 5 Wheelchair Level of Assist: 5 Type of Wheelchair: Manual Exercises Supine Ex: Rolling, Straight leg raise, Hip abd/add Supine Reps: 12 Seated Therapy Exercises: Sit to stand, Long arc quads, Hip abd/add Seated Reps: 12 Assessment Current Status: Good Progress pt. requested BP taken: 148/89 PT Short Term Goals Short Term Goals Time Frame: Apr 12, 2017 Transfers (B,C,W/C) (FIM): 4 (met) Gait (FIM): 4 Distance (FIM): 3=150 ft Gait Assistive Device: Walker Donnie Wheelchair distance (FIM): 3=150 ft Wheelchair Distance: 200'x2 Wheelchair Level of Assist: 6 Stairs (FIM): 3 # of Steps: 12 PT Recreation Activities Coordinator Goals Chcf Goals PT Chcf Goals Time Frame: May 02, 2017 Transfers (B,C,W/C) (FIM): 6 Sit to Lying (QC): 6 Lying-Sitting on Side/Bed(QC): 6 Sit to Stand (QC): 6 Rollin Roll Left to Right (QC): 6 Chair/[place] Xfer(QC): 6 Car Transfer (QC): 4 Does the Patient Walk: Yes Gait (FIM): 4 Gait distance (FIM): 3=150 ft Distance: 150 Walk 10 feet (QC): 4 Walk 10ft-Uneven Surface(QC): 4 Walk 50ft with 2 Turns (QC): 4 Walk 150 ft (QC): 4 Gait Level of Assist: 4 Gait Assistive Device: Walker Donnie Does the Pt use WC or Scooter?: Yes Wheelchair (FIM): 6 Wheelchair distance (FIM): 3=150 ft Distance: 250 Wheelchair Level of Assist: 6 Wheel 50 feet with 2 turns (QC: 6 Stairs (FIM): 4 # of Steps: 12 1 Step (curb) (QC): 3 4 Steps (QC): 3 12 Steps (QC): 3 Stairs Level Of Assist: 4 Picking up an Object (QC): 2 PT Plan Treatment/Plan Treatment Plan: Continue Plan of Care Treatment Plan: Bed Mobility, Education, Functional Activity Madalyn, Functional Strength, Group Therapy, Gait, Safety, Therapeutic Exercise, Transfers Treatment Duration: Apr 26, 2017 Frequency: At least 5 of 7 days/Wk (IRF) Estimated Hrs Per Day: 1.5 hours per day Patient and/or Family Agrees t: Yes Safety Risks/Education Patient Education: Gait Training, Transfer Techniques, Correct Positioning, W/ C Management, Safety Issues Teaching Recipient: Patient Teaching Methods: Demonstration, Discussion Response to Teaching: Verbalize Understanding, Return Demonstration, Reinforcement Needed Time/GCodes Time In: 745 Time Out: 830 Total Billed Treatment Time: 45 Total Billed Treatment 1,GT15,EX10,FA20 G Codes Necessary: No TRAVON IBANEZ SECOND HELPER Apr 14, 2017 08:35
[2017-04-14] MEDS: MAGNESIUM OXIDE (MAG-OX)400 MG TAB PO SCH (10:24)
[2017-04-14] MEDS: ALFUZOSIN HCL 10 MG TAB (UROXATRAL) PO SCH (10:24)
[2017-04-14] MEDS: ATORVASTATIN 40 MG (LIPITOR) TABLET PO SCH (10:24)
[2017-04-14] MEDS: FAMOTIDINE 20 MG (PEPCID) TABLET PO SCH ×2 (10:24→20:22)
[2017-04-14] MEDS: CARVEDILOL 3.125 MG (COREG) TABLET PO SCH (10:24)
[2017-04-14] MEDS: A & D OINT 60 GM TUBE TOP SCH (10:25)
[2017-04-14] MEDS: TRIAMCINOLONE 0.5% CR (KENALOG) 15 GM TUBE TOP SCH ×2 (10:25→20:27)
[2017-04-14] MEDS: DICLOFENAC 1% GEL 100 GM (VOLTAREN) TUBE TOP SCH ×4 (10:25→20:27)
[2017-04-14] MEDS: BETAMETHASONE/CLOTRIM CREAM (LOTRISONE) 45 GM TP SCH ×2 (10:26→20:27)
[2017-04-14] MEDS: DOCUSATE SODIUM 100 MG (COLACE) CAP PO SCH (10:27)
[2017-04-14] MEDS: CLOPIDOGREL 75 MG (PLAVIX) TABLET PO SCH (10:27)
--- NOTE | 2017-04-14 12:36 | Occupational Ther Daily Note ---
OT Current Status-Daily Note Subjective Pt alert, sitting in recliner. Pt stated that he wanted the catheter out before he took a shower. Pt also was concerned about the blister on his L 3rd digit palmar side. Pt wanted to JACOBS to report to nrsg. Pt c/o pain with neck and shldr, did not rate. Pt agreed to therapy. Mental Status/Objective Patient Orientation: Person, Place, Time, Situation Functional [place] Measure 0=Not Assessed/NA 4=Minimal Assistance 1=Total Assistance 5=Supervision or Setup 2=Maximal Assistance 6=Modified [place] 3=Moderate Assistance 7=Complete [place] ADL-Treatment Pt transported self to bathroom with w/c. CGA to transfer to toilet using w/c and grabbars. CGA to hike pants down over hips. Mod A to initiate pants over feet. Pt wanted to sit on the toilet. After therapy, pt in bathroom. Call light left in reach, nrsg notified. Functional [place] Measure 0=Not Assessed/NA 4=Minimal Assistance 1=Total Assistance 5=Supervision or Setup 2=Maximal Assistance 6=Modified [place] 3=Moderate Assistance 7=Complete IndependenceIRFPAI Quality Coding Scale 6 Independent with activity with or without an assistive device 5 Patient requires set up or clean up by helper. Patient completes activity by themselves 4 Supervision or touching assist (CGA). [place] provide cues , steadying assist 3 The helper provides less than half the effort to complete the activity 2 The helper provides more than half the effort to complete the activity 1 Dependent. The helper does all the effort to complete an activity 7 Patient refused to complete or attempt activity 9 The patient did not perform the activity before the current illness or injury 88 Not attempted due to Medical conditions or safety concerns Other Treatment MHP to pt's L forearm and hand/wrist for 20 min to increase ROM. Massage to area after MHP increased PROM for finger extension and forearm supination. Pt c /o neck and R shldr pain, massage and stretching completed to decrease pain. UE exercises with 3# wt with R UE completed 3 sets 10 reps. OT Short Term Goals Short Term Goals Time Frame: Apr 12, 2017 Bathing(FIM): 4 Upper Body Dressing(FIM): 4 Lower Body Dressing(FIM): 4 Toileting(FIM): 4 Transfers (B,C,W/C) (FIM): 4 (met) Shower Transfer(FIM): 4 Additional Short Term Goals: 1-Demonstrate ADL Tasks, 2-Verbalize Understanding , 3-ImproveStrength/Madalyn 1=Demonstrate adherence to instructed precautions during ADL tasks. 2=Patient will verbalize/demonstrate understanding of assistive devices/ modifications for ADL. 3=Patient will improve strength/tolerance for activity to enable patient to perform ADL's. OT Customer Program Manager Goals Customer Program Manager Goals Time Frame: Apr 26, 2017 Eating (FIM): 6 Eating (QC): 6 Groomin Oral Hygiene (QC): 6 Bathing(FIM): 5 Shower/Bathe Self (QC): 5 Upper Body Dressing(FIM): 5 Upper Body Dressing (QC): 5 Lower Body Dressing(FIM): 5 Lower Body Dressing (QC): 4 On/Off Footwear (QC): 5 Toileting(FIM): 6 Toileting Hygiene (QC): 6 Toilet/Commode Transfer(FIM): 6 Toilet/Commode Transfer (QC): 6 Shower Transfer(FIM): 5 Additional Goals: 1-Demonstrate ADL Tasks, 2-Verbalize Understanding, 3- ImproveStrength/Madalyn 1=Demonstrate adherence to instructed precautions during ADL tasks. 2=Patient will verbalize/demonstrate understanding of assistive devices/ modifications for ADL. 3=Patient will improve strength/tolerance for activity to enable patient to perform ADL's. OT Education/Plan Problem List/Assessment Pt to benefit from skilled OT intervention for ADL training, transfers, strengthening, and home safety education to maximize level of function and allow safe discharge home. Discharge Recommendations Plan/Recommendations: Continue POC Treatment Plan/Plan of Care Patient would benefit from OT for education, treatment and training to promote independence in ADL's, mobility, safety and/or upper extremity function for ADL' s. Plan of Care: ADL Retraining, Functional Mobility, Group Exercise/Act as Ind, UE Funct Exercise/Act Treatment Duration: Apr 26, 2017 Frequency: At least 5 of 7 days/Wk (IRF) Estimated Hrs Per Day: 1.5 hours per day Agreement: Yes Rehab Potential: Good Time/GCodes Start Time: 09:00 Stop Time: 10:00 Total Time Billed (hr/min): 60 Billed Treatment Time 1 visit-FA 3 (50 min) EX 1 (10 min) TULIO BERGMAN Apr 14, 2017 12:36
--- NOTE | 2017-04-14 14:05 | Cardiology Progress Note ---
Cardiology SOAP Progress Note Subjective: No complaints Objective: I&O/Vital Signs Vital Sign - Last 12Hours 04/14/17 04/14/17 06:04 09:00 Temp 97.3 Pulse 82 Resp 18 B/P (MAP) 125/79 Pulse Ox 97 O2 Delivery Room Air Room Air Weight (Pounds): 147 Weight (Ounces): 0.6 Weight (Calculated Kilograms): 66.263433 Constitutional: No appears stated age, No AAO x 3, No apparent distress, No PERRL, No well-developed, No well-nourished, No other Respiratory: No accessory muscle use, No respiratory distress, No chest tender , No chest expansion is symmetric, No chest is bilaterally symmetric, No lungs clear to percussion, No lungs clear to auscultation, No crackles, No rhonchi, No rales, No stridor, No wheezing, No pleural rub, No other Cardiovascular: regular rate-rhythm, No irregularly irregular, No extra beats, No parasternal heave is noted, No JVD, No edema, No bradycardia, No tachycardia , No point of maximal impulse, No cardiac thrills are palpable, S1 and S2, No gallop/S3, No gallop/S4, No diastolic murmur, No systolic murmur, No friction rub, No click, No other Gastrointestional: No tender, No soft, No round, No distended, No pulsatile mass, No organomegaly, No guarding, No rebound, No tenderness, No hernia, No mass, No audible bowel sounds, No abnormal bowel sounds, No abdominal bruits, No spleenomegaly, No other Extremities: No normal range of motion, No non-tender, No normal inspection, No pedal edema, No calf tenderness, No normal capillary refill, No pelvis stable , No calf tenderness, No inflammation, No pedal edema, No slow capillary refill , No swelling, No other, No abrasion, No clubbing, No cyanosis, No ecchymosis, No laceration, No no lower extremity edema bilateral, No significant edema, No tenderness, No wound Neurologic/Psychiatric: alert, normal mood/affect, oriented x 3, motor weakness Skin: No normal color, No warm/dry, No cyanosis, No cool, No diaphoresis, No damp, No ecchymosis, No jaundice, No mottled, No pallor, No rash, No tattoos/ piercings, No ulcerations, No rash on exposed areas, No ulcerations on exposed areas, No other Results/Procedures: Labs Laboratory Tests 04/14/17 05:30: Prothrombin Time 15.9H, INR Comment 1.3 A/P: Assessment/Dx: CVA, CAD, pericardial effusion, cardiomyopathy, atrial fibrillation, CHF, weakness. Plan: Weakness: Inpatient rehabilitation. Hyponatremia: Defer to primary team CVA with residual deficit continue on Plavix. Pericardial effusion:Echocardiogram shows mild to moderate pericardial effusion. No significant tamponade physiology. CAD: Previous stents. Continue Plavix, statin, beta radha, MARIA G inhibitor. status post cath which shows previous LAD stent to be occluded. no intervention. We got old records from previous hospital which showed that the LAD stent is chronically occluded. Patient does have proximal LAD disease following which there is a large septal dye maker as well as a first diagonal artery. If the patient develops further chest pain we will consider PCI to the proximal LAD into the first diagonal. However if the patient's rest of the stay is unremarkable we will defer to his primary aeronautical engineer. Cardiomyopathy: EF 20-25%. Not in congestive heart failure on examination. DC carvedilol and start metoprolol.. Atrial fibrillation: Sinus rhythm. Pulse was regular. Continue warfarin. Thank you for your consultation. Please call me if you have any questions. Eboni Nugent MD, FACP, FACC, FSCAI, FHRS, CCDS Interventional Cardiology Cardiac Electrophysiology Vascular Medicine and Endovascular Interventions Amaya NUGENT MD Apr 14, 2017 2:04 pm
--- NOTE | 2017-04-14 14:42 | Therapy Group Daily Note ---
Therapy Daily Group Note Patient Education Topic Other List Below (posture, benefits of exercise, proper breathing) Exercises LE Seated Exercise, UE Exercise Other/Notes Other/Notes Pt was an active participant in OT/PT group. He introduced himself and shared the first thing he likes to do in the fall. He contributed to discussion/ education on posture and breathing, as well as the rehab process on ARU. He also did seated UE and LE exercises, modifying them as needed for his physical limitations. He was taken back to his room per w/c and transferred CGA to bed. call gupta at hand, all needs met. Start Time: 13:00 Stop Time: 14:15 Total Billed Treatment Time: 75 Total Billed Treatment 1,GRP TRAVON IBANEZ MARKETING PR INTERN Apr 14, 2017 14:42
--- NOTE | 2017-04-14 17:05 | PM & R (SOAP) Progress Note ---
Subjective Time Seen by Provider: 17:00 Subjective/Events-last exam Patient was seen in his rrom this evening Contacted by RN earlier today re Constipation and urinary retention Constiaption treated and now patient voiding INR LOw will increase [place] Patient Min to mod assist for transfers Review of Systems Gastrointestinal: Constipation Genitourinary: Retention Neurological: Weakness Objective Exam Last Set of Vital Signs Vital Signs Date Time Temp Pulse Resp B/P (MAP) Pulse Ox O2 Delivery O2 Flow Rate FiO2 04/14/17 09:00 Room Air 04/14/17 06:04 97.3 82 18 125/79 97 Capillary Refill : I&O Intake and Output 04/15/17 00:00 Intake Total 1300 ml Output Total 2850 ml Balance -1550 ml Intake Oral 1300 ml Output Urine Total 2850 ml General: Alert, No Acute Distress HEENT: Atraumatic, PERRLA, EOMI, Mucous Memb Moist/[place] Neck: Supple, No JVD Lungs: Normal Air Movement Heart: Regular Rate Abdomen: Normal Bowel Sounds, Soft, No Tenderness Extremities: Other ( Blister flex aspect of fourth left finger and caalous over plantar aspect of left foot) Skin: Other (there is an active purplish blister on the flexor aspect of the proximal phalanx of the left fourth finger. 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 Coronary artery D Chronic anticoagulation Cardiology managing Fungal groin rash Blister left foot plantar aspect and left finger DR House has rxed Uirinary retention resolved Contip[ation treated Plan Continue PT/OT F/U with Cardiology prn Team Conference held 04-09-17 -See report for full functional update and POC and ELOS Patient request an order for new w/c-last one was bought by patient when he was without insurance - SW will follow up-RX provided Treat Groin rash-done Dr House consulted re blisters-done appreciate his assistance Meds adjusted for constipation Monitor for any further constipatoipn or urinary retention Subtherapeutic INR- Increase Coumadin dosage See orders Next Team Conference [phone] GRAEME GRESHAM MD Apr 14, 2017 17:05
[2017-04-14] MEDS: warFARin 5 MG (COUMADIN) TAB PO SCH (17:40)
[2017-04-14 19:44] VITALS: BP 108/61
[2017-04-14] MEDS: ALPRAZolam 0.5 MG (XANAX) TAB PO PRN (20:22)
[2017-04-14] MEDS: FINASTERIDE (PROSCAR) 5 MG TAB PO SCH (20:22)
[2017-04-14] MEDS: OLANZapine 5 MG (ZyPREXA) TAB PO SCH (20:22)
[2017-04-14] MEDS: LORATADINE (CLARITIN) 10 MG TAB PO SCH (20:23)
[2017-04-14] MEDS: VALSARTAN 80 MG (DIOVAN) TAB PO SCH (20:25)
[2017-04-14] MEDS: ACET/BUTAL/CAFF (FIORICET) TAB PO PRN (21:48)
[2017-04-15] MEDS: ACET/BUTAL/CAFF (FIORICET) TAB PO PRN (04:46)
[2017-04-15 05:44] LABS: INR 1.3 (0.8-1.4); PROTHROMBIN TIME PATIENT 16.2 SEC (12.2-14.7)
[2017-04-15 06:45] VITALS: BP 130/76
[2017-04-15] MEDS: DICLOFENAC 1% GEL 100 GM (VOLTAREN) TUBE TOP SCH ×4 (08:21→21:54)
[2017-04-15] MEDS: TRIAMCINOLONE 0.5% CR (KENALOG) 15 GM TUBE TOP SCH ×2 (08:21→21:53)
[2017-04-15] MEDS: LACTULOSE SYRUP 10GM/15ML (ENULOSE) 30ML UDC PO SCH (08:21)
[2017-04-15] MEDS: A & D OINT 60 GM TUBE TOP SCH (08:22)
[2017-04-15] MEDS: ATORVASTATIN 40 MG (LIPITOR) TABLET PO SCH (08:22)
[2017-04-15] MEDS: DOCUSATE SODIUM 100 MG (COLACE) CAP PO SCH (08:22)
[2017-04-15] MEDS: ALFUZOSIN HCL 10 MG TAB (UROXATRAL) PO SCH (08:22)
[2017-04-15] MEDS: MAGNESIUM OXIDE (MAG-OX)400 MG TAB PO SCH (08:22)
[2017-04-15] MEDS: FAMOTIDINE 20 MG (PEPCID) TABLET PO SCH ×2 (08:22→21:39)
[2017-04-15] MEDS: CLOPIDOGREL 75 MG (PLAVIX) TABLET PO SCH (08:23)
[2017-04-15] MEDS: ACETAMINOPHEN 325 MG TABLET/CAPLET (TYLENOL) PO PRN (08:24)
--- NOTE | 2017-04-15 08:54 | Occupational Ther Daily Note ---
OT Current Status-Daily Note Subjective Pt alert, lying in bed. Pt c/o of being tired today. Movements are slower than normal for pt. Pt agreed to therapy. Mental Status/Objective Patient Orientation: Person, Place, Time, Situation Functional [place] Measure 0=Not Assessed/NA 4=Minimal Assistance 1=Total Assistance 5=Supervision or Setup 2=Maximal Assistance 6=Modified [place] 3=Moderate Assistance 7=Complete [place] ADL-Treatment Pt able to place and use urinal lying in bed, assist to empty. Pt then was able to go from supine to sitting EOB with HOB raised and use of bed rails. CGA for stand pivot transfer using ro-walker to go from bed to w/c. CGA to transfer into shower using grabbar, w/c and shower bench. Pt was able to doff shoes, R sock and shirt by self. Pt was able to bathe self though required assistance to dry buttocks and back of legs then CGA while standing to dry levon area. Assist to initiate shirt over L arm then pt able to complete by self. Pt able to initiate pants over feet while assist to hold L foot while crossing knee. CGA while standing as pt hiked pants over hips. Assist to don socks/ shoes. Pt able to complete own grooming while sitting in w/c. After therapy, nrsg present in room. Call light/phone in reach. All needs met in room. Functional [place] Measure 0=Not Assessed/NA 4=Minimal Assistance 1=Total Assistance 5=Supervision or Setup 2=Maximal Assistance 6=Modified [place] 3=Moderate Assistance 7=Complete IndependenceIRFPAI Quality Coding Scale 6 Independent with activity with or without an assistive device 5 Patient requires set up or clean up by helper. Patient completes activity by themselves 4 Supervision or touching assist (CGA). [place] provide cues , steadying assist 3 The helper provides less than half the effort to complete the activity 2 The helper provides more than half the effort to complete the activity 1 Dependent. The helper does all the effort to complete an activity 7 Patient refused to complete or attempt activity 9 The patient did not perform the activity before the current illness or injury 88 Not attempted due to Medical conditions or safety concerns Grooming (FIM): 6 Oral Hygiene (QC): 6 Bathing (FIM): 4 Bathing Location: L Arm, R Arm, L Upper Leg, R Upper Leg, L Lower Leg ( including foot), R Lower Leg (including foot), Chest, Abdomen, Buttocks, Perineal Area Shower/Bathe Self (QC): 3 Upper Body (FIM): 4 Upper Body Dressing (QC): 3 Lower Body Dressing (FIM): 3 Lower Body Dressing (QC): 3 On/Off Footwear (QC): 2 Toileting (FIM): 4 Toileting Hygiene (QC): 4 Transfers (B, C, W/C) (FIM): 4 Shower Transfer(FIM): 4 OT Short Term Goals Short Term Goals Time Frame: Apr 12, 2017 Bathing(FIM): 4 Upper Body Dressing(FIM): 4 Lower Body Dressing(FIM): 4 Toileting(FIM): 4 Transfers (B,C,W/C) (FIM): 4 (met) Shower Transfer(FIM): 4 Additional Short Term Goals: 1-Demonstrate ADL Tasks, 2-Verbalize Understanding , 3-ImproveStrength/Madalyn 1=Demonstrate adherence to instructed precautions during ADL tasks. 2=Patient will verbalize/demonstrate understanding of assistive devices/ modifications for ADL. 3=Patient will improve strength/tolerance for activity to enable patient to perform ADL's. OT Third Mate Goals Usp Goals Time Frame: Apr 26, 2017 Eating (FIM): 6 Eating (QC): 6 Groomin Oral Hygiene (QC): 6 Bathing(FIM): 5 Shower/Bathe Self (QC): 5 Upper Body Dressing(FIM): 5 Upper Body Dressing (QC): 5 Lower Body Dressing(FIM): 5 Lower Body Dressing (QC): 4 On/Off Footwear (QC): 5 Toileting(FIM): 6 Toileting Hygiene (QC): 6 Toilet/Commode Transfer(FIM): 6 Toilet/Commode Transfer (QC): 6 Shower Transfer(FIM): 5 Additional Goals: 1-Demonstrate ADL Tasks, 2-Verbalize Understanding, 3- ImproveStrength/Madalyn 1=Demonstrate adherence to instructed precautions during ADL tasks. 2=Patient will verbalize/demonstrate understanding of assistive devices/ modifications for ADL. 3=Patient will improve strength/tolerance for activity to enable patient to perform ADL's. OT Education/Plan Problem List/Assessment Pt to benefit from skilled OT intervention for ADL training, transfers, strengthening, and home safety education to maximize level of function and allow safe discharge home. Discharge Recommendations Plan/Recommendations: Continue POC Treatment Plan/Plan of Care Patient would benefit from OT for education, treatment and training to promote independence in ADL's, mobility, safety and/or upper extremity function for ADL' s. Plan of Care: ADL Retraining, Functional Mobility, Group Exercise/Act as Ind, UE Funct Exercise/Act Treatment Duration: Apr 26, 2017 Frequency: At least 5 of 7 days/Wk (IRF) Estimated Hrs Per Day: 1.5 hours per day Agreement: Yes Rehab Potential: Good Time/GCodes Start Time: 08:00 Stop Time: 09:00 Total Time Billed (hr/min): 60 Billed Treatment Time 1 visit-ADL 4 (60 min) TULIO BERGMAN Apr 15, 2017 08:54
[2017-04-15] MEDS: BETAMETHASONE/CLOTRIM CREAM (LOTRISONE) 45 GM TP SCH ×2 (09:03→21:54)
--- NOTE | 2017-04-15 12:06 | Physical Therapy Daily Note ---
PT Daily Note-Current Subjective Patient is in his W/C when PT greets him. Patient reports dizziness with positional changes and ambulation today. He also reports that the doctors started him on a new medication today. Pain Numeric Pain Scale: 0-No Pain Location: No Pain Reported Appearance Patient appears in good health. Mental Status Patient Orientation: Normal For Age Transfers Functional [place] Measure 0=Not Assessed/NA 4=Minimal Assistance 1=Total Assistance 5=Supervision or Setup 2=Maximal Assistance 6=Modified [place] 3=Moderate Assistance 7=Complete IndependenceIRFPAI Quality Coding Scale 6 Independent with activity with or without an assistive device 5 Patient requires set up or clean up by helper. Patient completes activity by themselves 4 Supervision or touching assist (CGA). [place] provide cues , steadying assist 3 The helper provides less than half the effort to complete the activity 2 The helper provides more than half the effort to complete the activity 1 Dependent. The helper does all the effort to complete an activity 7 Patient refused to complete or attempt activity 9 The patient did not perform the activity before the current illness or injury 88 Not attempted due to Medical conditions or safety concerns Transfers (B, C, W/C) (FIM): 5 Supine to/from Sit: 4 Sit to/from Stand: 5 Sit to Lying (QC): 4 Sit to Stand (QC): 3 Patient can perform sit to stand transfer with SBA from PT. Patient needs min assist from the PT from rising from supine to sitting. Weight Bearing Right Lower Extremity: Right Full Weight Bearing Left Lower Extremity: Left Full Weight Bearing Gait Training Does the Patient Walk?: Yes Gait (FIM): 5 Distance: 250' Walk 10 feet (QC): 4 Walk 50 ft with 2 Turns(QC): 4 Walk 150 ft (QC): 4 Gait Level of Assist: 5 Gait Persons Needed: 1 Gait Assistive Device: Cane Large Base Quad Patient walks with a quad cane maneuvered by his R UE. He ambulates with a ER L LE with a circumducted gait pattern. PT is CGA with ambulation. Exercises Supine Ex: Knee to chest (Patient contracts to extend hip and knee against PT resistance. Eccentric contraction while PT flexs the leg.) Supine Reps: 10 Seated Therapy Exercises: Ankle pumps (L LE assisted by PT to facilitate dorsi/ plantar flexion), Long arc quads (L LE patient flexes knee against PT resistance ), Hip flexion Seated Reps: 15 NuStep Minutes: 10 (To improve aerobic capacity and improve muscular endurance) NuStep Workload: 6 Assessment Current Status: Good Progress Patient shows good tolerance for therapeutic activities. Exercise was adapted due to patient dizziness on this date, but he has shown positive progress overall. PT Short Term Goals Short Term Goals Time Frame: Apr 12, 2017 Transfers (B,C,W/C) (FIM): 4 (met) Gait (FIM): 4 Distance (FIM): 3=150 ft Gait Assistive Device: Walker Donnie Wheelchair distance (FIM): 3=150 ft Wheelchair Distance: 200'x2 Wheelchair Level of Assist: 6 Stairs (FIM): 3 # of Steps: 12 PT Half-Way Goals Lens Engraver Goals PT Half-Way Goals Time Frame: May 02, 2017 Transfers (B,C,W/C) (FIM): 6 Sit to Lying (QC): 6 Lying-Sitting on Side/Bed(QC): 6 Sit to Stand (QC): 6 Rollin Roll Left to Right (QC): 6 Chair/Kie-hc-Hbkqi Xfer(QC): 6 Car Transfer (QC): 4 Does the Patient Walk: Yes Gait (FIM): 4 Gait distance (FIM): 3=150 ft Distance: 150 Walk 10 feet (QC): 4 Walk 10ft-Uneven Surface(QC): 4 Walk 50ft with 2 Turns (QC): 4 Walk 150 ft (QC): 4 Gait Level of Assist: 4 Gait Assistive Device: Walker Donnie Does the Pt use WC or Scooter?: Yes Wheelchair (FIM): 6 Wheelchair distance (FIM): 3=150 ft Distance: 250 Wheelchair Level of Assist: 6 Wheel 50 feet with 2 turns (QC: 6 Stairs (FIM): 4 # of Steps: 12 1 Step (curb) (QC): 3 4 Steps (QC): 3 12 Steps (QC): 3 Stairs Level Of Assist: 4 Picking up an Object (QC): 2 PT Plan Problem List Problem List: Activity Tolerance, Functional Strength, Safety, Balance, Gait Treatment/Plan Treatment Plan: Continue Plan of Care Treatment Plan: Bed Mobility, Education, Functional Activity Madalyn, Functional Strength, Group Therapy, Gait, Safety, Therapeutic Exercise, Transfers Treatment Duration: Apr 26, 2017 Frequency: At least 5 of 7 days/Wk (IRF) Estimated Hrs Per Day: 1.5 hours per day Patient and/or Family Agrees t: Yes Time/GCodes Time In: 1058 Time Out: 1158 Total Billed Treatment Time: 60 Total Billed Treatment 1 visit EX x 3 45 min GT 15 min NATE HARPER PT Apr 15, 2017 12:06
--- NOTE | 2017-04-15 12:35 | PM & R (SOAP) Progress Note ---
Subjective Time Seen by Provider: 11:30 Subjective/Events-last exam Patient was seen in Gym this AM Blister left finger covered with bandaid Discussed case with DR rivera Coumadin increased to 5 mg a day INR today 1.3 Patient min assist for Gait with Quad cane Review of Systems Neurological: Weakness Objective Exam Last Set of Vital Signs Vital Signs Date Time Temp Pulse Resp B/P (MAP) Pulse Ox O2 Delivery O2 Flow Rate FiO2 04/15/17 06:45 98.4 78 18 130/76 96 Room Air Capillary Refill : I&O Intake and Output 04/16/17 00:00 Intake Total 450 ml Output Total 1100 ml Balance -650 ml Intake Oral 450 ml Output Urine Total 1100 ml General: Alert, No Acute Distress HEENT: Atraumatic, PERRLA, EOMI, Mucous Memb Moist/[place] Neck: Supple, No JVD Lungs: Normal Air Movement Heart: Regular Rate Abdomen: Normal Bowel Sounds, Soft, No Tenderness Extremities: Other ( Blister flex aspect of fourth left finger and caalous over plantar aspect of left foot) Skin: Other (there is an active purplish blister on the flexor aspect of the proximal phalanx of the left fourth finger. 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 Coronary artery D Chronic anticoagulation Cardiology managing Fungal groin rash Blister left foot plantar aspect and left finger DR House has rxed Uirinary retention resolved Contip[ation treated Plan Continue PT/OT F/U with Cardiology pr Patient request an order for new w/c-last one was bought by patient when he was without insurance - will follow up-RX provided Treat Groin rash-done Dr House consulted re blisters-done appreciate his assistance Meds adjusted for constipation Monitor for any further constipatoipn or urinary retention Subtherapeutic INR- Increased Coumadin dosage See orders Next Team Conference tomorrow [phone] GRAEME GRESHAM MD Apr 15, 2017 12:34
--- NOTE | 2017-04-15 14:13 | Occupational Ther Daily Note ---
OT Current Status-Daily Note Subjective Pt sleeping, lying in bed. Pt woke easily to name. Agreed to therapy, no c/o pain. Mental Status/Objective Patient Orientation: Person, Place, Time, Situation Functional [place] Measure 0=Not Assessed/NA 4=Minimal Assistance 1=Total Assistance 5=Supervision or Setup 2=Maximal Assistance 6=Modified [place] 3=Moderate Assistance 7=Complete [place] ADL-Treatment Functional [place] Measure 0=Not Assessed/NA 4=Minimal Assistance 1=Total Assistance 5=Supervision or Setup 2=Maximal Assistance 6=Modified [place] 3=Moderate Assistance 7=Complete IndependenceIRFPAI Quality Coding Scale 6 Independent with activity with or without an assistive device 5 Patient requires set up or clean up by helper. Patient completes activity by themselves 4 Supervision or touching assist (CGA). [place] provide cues , steadying assist 3 The helper provides less than half the effort to complete the activity 2 The helper provides more than half the effort to complete the activity 1 Dependent. The helper does all the effort to complete an activity 7 Patient refused to complete or attempt activity 9 The patient did not perform the activity before the current illness or injury 88 Not attempted due to Medical conditions or safety concerns Other Treatment Completed stretch and massage to increase PROM and AAROM. Pt has demonstrated decrease L shldr, forearm, wrist and hand ROM. After stretch, pt was able to maintain increased extension of elbow and digits. Pt then requested to get up and into w/c. With HOB raised and using bedrails pt able to go from supine to sitting EOB by self. CGA for stand pivot transfer to w/c using ro-walker. Assist to open packages/containers to eat snack. After therapy, pt sitting in w /c with call light/phone in reach. All needs met in room. OT Short Term Goals Short Term Goals Time Frame: Apr 12, 2017 Bathing(FIM): 4 Upper Body Dressing(FIM): 4 Lower Body Dressing(FIM): 4 Toileting(FIM): 4 Transfers (B,C,W/C) (FIM): 4 (met) Shower Transfer(FIM): 4 Additional Short Term Goals: 1-Demonstrate ADL Tasks, 2-Verbalize Understanding , 3-ImproveStrength/Madalyn 1=Demonstrate adherence to instructed precautions during ADL tasks. 2=Patient will verbalize/demonstrate understanding of assistive devices/ modifications for ADL. 3=Patient will improve strength/tolerance for activity to enable patient to perform ADL's. OT Label Printer Goals Senior Living Goals Time Frame: Apr 26, 2017 Eating (FIM): 6 Eating (QC): 6 Groomin Oral Hygiene (QC): 6 Bathing(FIM): 5 Shower/Bathe Self (QC): 5 Upper Body Dressing(FIM): 5 Upper Body Dressing (QC): 5 Lower Body Dressing(FIM): 5 Lower Body Dressing (QC): 4 On/Off Footwear (QC): 5 Toileting(FIM): 6 Toileting Hygiene (QC): 6 Toilet/Commode Transfer(FIM): 6 Toilet/Commode Transfer (QC): 6 Shower Transfer(FIM): 5 Additional Goals: 1-Demonstrate ADL Tasks, 2-Verbalize Understanding, 3- ImproveStrength/Madalyn 1=Demonstrate adherence to instructed precautions during ADL tasks. 2=Patient will verbalize/demonstrate understanding of assistive devices/ modifications for ADL. 3=Patient will improve strength/tolerance for activity to enable patient to perform ADL's. OT Education/Plan Problem List/Assessment Pt to benefit from skilled OT intervention for ADL training, transfers, strengthening, and home safety education to maximize level of function and allow safe discharge home. Discharge Recommendations Plan/Recommendations: Continue POC Treatment Plan/Plan of Care Patient would benefit from OT for education, treatment and training to promote independence in ADL's, mobility, safety and/or upper extremity function for ADL' s. Plan of Care: ADL Retraining, Functional Mobility, Group Exercise/Act as Ind, UE Funct Exercise/Act Treatment Duration: Apr 26, 2017 Frequency: At least 5 of 7 days/Wk (IRF) Estimated Hrs Per Day: 1.5 hours per day Agreement: Yes Rehab Potential: Good Time/GCodes Start Time: 13:05 Stop Time: 13:35 Total Time Billed (hr/min): 30 Billed Treatment Time 1 visit-EX 2 (30 min) TULIO BERGMAN Apr 15, 2017 14:13
--- NOTE | 2017-04-15 14:48 | Physical Therapy Daily Note ---
PT Daily Note-Current Subjective Patient is about to toilet upon PT entering the room. Patient toilets with SBA from the PT. Patient states he got a good workout this morning. Pain Numeric Pain Scale: 0-No Pain Location: No Pain Reported Mental Status Patient Orientation: Normal For Age Transfers Functional [place] Measure 0=Not Assessed/NA 4=Minimal Assistance 1=Total Assistance 5=Supervision or Setup 2=Maximal Assistance 6=Modified [place] 3=Moderate Assistance 7=Complete IndependenceIRFPAI Quality Coding Scale 6 Independent with activity with or without an assistive device 5 Patient requires set up or clean up by helper. Patient completes activity by themselves 4 Supervision or touching assist (CGA). [place] provide cues , steadying assist 3 The helper provides less than half the effort to complete the activity 2 The helper provides more than half the effort to complete the activity 1 Dependent. The helper does all the effort to complete an activity 7 Patient refused to complete or attempt activity 9 The patient did not perform the activity before the current illness or injury 88 Not attempted due to Medical conditions or safety concerns Transfers (B, C, W/C) (FIM): 5 Sit to/from Stand: 5 Sit to Stand (QC): 4 Patient performs sit to stand transfer with CGA with occasional SBA from PT. Weight Bearing Right Lower Extremity: Right Full Weight Bearing Left Lower Extremity: Left Full Weight Bearing Gait Training Does the Patient Walk?: Yes Exercises Seated Therapy Exercises: Biceps (R UE 2 sets), Sit to stand (R UE 2 sets), Shoulder Flex (R UE 2 sets), Shoulder Abd (R UE 2 sets) Seated Reps: 10 Assessment Current Status: Good Progress Patient has good tolerance for PT. He reports soreness with exercise interventions, but states it is good for him. PT will progress exercises as patient tolerates. PT Short Term Goals Short Term Goals Time Frame: Apr 12, 2017 Transfers (B,C,W/C) (FIM): 4 (met) Gait (FIM): 4 Distance (FIM): 3=150 ft Gait Assistive Device: Walker Donnie Wheelchair distance (FIM): 3=150 ft Wheelchair Distance: 200'x2 Wheelchair Level of Assist: 6 Stairs (FIM): 3 # of Steps: 12 PT Boiler Inspector Goals Alf Goals PT Boiler Inspector Goals Time Frame: May 02, 2017 Transfers (B,C,W/C) (FIM): 6 Sit to Lying (QC): 6 Lying-Sitting on Side/Bed(QC): 6 Sit to Stand (QC): 6 Rollin Roll Left to Right (QC): 6 Chair/Vfb-sg-Ffbnq Xfer(QC): 6 Car Transfer (QC): 4 Does the Patient Walk: Yes Gait (FIM): 4 Gait distance (FIM): 3=150 ft Distance: 150 Walk 10 feet (QC): 4 Walk 10ft-Uneven Surface(QC): 4 Walk 50ft with 2 Turns (QC): 4 Walk 150 ft (QC): 4 Gait Level of Assist: 4 Gait Assistive Device: Walker Donnie Does the Pt use WC or Scooter?: Yes Wheelchair (FIM): 6 Wheelchair distance (FIM): 3=150 ft Distance: 250 Wheelchair Level of Assist: 6 Wheel 50 feet with 2 turns (QC: 6 Stairs (FIM): 4 # of Steps: 12 1 Step (curb) (QC): 3 4 Steps (QC): 3 12 Steps (QC): 3 Stairs Level Of Assist: 4 Picking up an Object (QC): 2 PT Plan Treatment/Plan Treatment Plan: Continue Plan of Care Treatment Plan: Bed Mobility, Education, Functional Activity Madalyn, Functional Strength, Group Therapy, Gait, Safety, Therapeutic Exercise, Transfers Treatment Duration: Apr 26, 2017 Frequency: At least 5 of 7 days/Wk (IRF) Estimated Hrs Per Day: 1.5 hours per day Patient and/or Family Agrees t: Yes Time/GCodes Time In: 1405 Time Out: 1435 Total Billed Treatment Time: 30 Total Billed Treatment 1 visit EX x 2 30 min NATE HARPER PT Apr 15, 2017 14:48
[2017-04-15] MEDS: BISACODYL 10 MG SUPP (DULCOLAX) PR PRN (14:50)
[2017-04-15] MEDS ORDERED: DOCUSATE SODIUM 100 MG (COLACE) CAP PO PRN (16:15)
[2017-04-15] MEDS ORDERED: LACTULOSE SYRUP 10GM/15ML (ENULOSE) 30ML UDC PO PRN (16:15)
[2017-04-15 18:00] VITALS: BP 123/67
[2017-04-15] MEDS: warFARin 5 MG (COUMADIN) TAB PO SCH (19:21)
[2017-04-15] MEDS: VALSARTAN 80 MG (DIOVAN) TAB PO SCH (21:39)
[2017-04-15] MEDS: OLANZapine 5 MG (ZyPREXA) TAB PO SCH (21:39)
[2017-04-15] MEDS: FINASTERIDE (PROSCAR) 5 MG TAB PO SCH (21:39)
[2017-04-15] MEDS: LORATADINE (CLARITIN) 10 MG TAB PO SCH (21:39)
[2017-04-15] MEDS: ALPRAZolam 0.5 MG (XANAX) TAB PO PRN (21:39)
[2017-04-16] MEDS: ACET/BUTAL/CAFF (FIORICET) TAB PO PRN (04:50)
[2017-04-16 06:00] VITALS: BP 106/67
[2017-04-16 06:03] LABS: INR 1.4 (0.8-1.4); PROTHROMBIN TIME PATIENT 17.1 SEC (12.2-14.7)
--- NOTE | 2017-04-16 07:55 | PM & R (SOAP) Progress Note ---
Subjective Time Seen by Provider: 07:20 Subjective/Events-last exam Patient was seen in his rrom this AM INR1.4 Left hand drsssing changed to maintain a space for blister to heal.Patient Min assist for transfers Objective Exam Last Set of Vital Signs Vital Signs Date Time Temp Pulse Resp B/P (MAP) Pulse Ox O2 Delivery O2 Flow Rate FiO2 04/16/17 06:00 97.8 88 17 106/67 98 Room Air Capillary Refill : I&O Intake and Output 04/17/17 00:00 Intake Total 120 ml Output Total 1100 ml Balance -980 ml Intake Oral 120 ml Output Urine Total 1100 ml General: Alert, No Acute Distress HEENT: Atraumatic, PERRLA, EOMI, Mucous Memb Moist/[place] Neck: Supple, No JVD Lungs: Normal Air Movement Heart: Regular Rate Abdomen: Normal Bowel Sounds, Soft, No Tenderness Extremities: Other ( Blister flex aspect of fourth left finger and caalous over plantar aspect of left foot) Skin: Other (there is an active purplish blister on the flexor aspect of the proximal phalanx of the left fourth finger. 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 Coronary artery D Chronic anticoagulation Cardiology managing Fungal groin rash Blister left foot plantar aspect and left finger DR House has rxed Uirinary retention resolved Contip[ation treated Plan Continue PT/OT F/U with Cardiology pr Patient request an order for new w/c-last one was bought by patient when he was without insurance - will follow up-RX provided Treat Groin rash-done Dr House consulted re blisters-done appreciate his assistance Meds adjusted for constipation Monitor for any further constipatoipn or urinary retention Subtherapeutic INR- Increased Coumadin dosage See orders Next Team Conference later today-See report for full functional update and POC and GRAEME BLANDON MD Apr 16, 2017 07:55
[2017-04-16] MEDS: ATORVASTATIN 40 MG (LIPITOR) TABLET PO SCH (08:29)
[2017-04-16] MEDS: ALFUZOSIN HCL 10 MG TAB (UROXATRAL) PO SCH (08:29)
[2017-04-16] MEDS: TRIAMCINOLONE 0.5% CR (KENALOG) 15 GM TUBE TOP SCH ×2 (08:29→20:33)
[2017-04-16] MEDS: DOCUSATE SODIUM 100 MG (COLACE) CAP PO SCH (08:29)
[2017-04-16] MEDS: MAGNESIUM OXIDE (MAG-OX)400 MG TAB PO SCH ×2 (08:29→09:01)
[2017-04-16] MEDS: BETAMETHASONE/CLOTRIM CREAM (LOTRISONE) 45 GM TP SCH ×2 (08:29→20:33)
[2017-04-16] MEDS: CLOPIDOGREL 75 MG (PLAVIX) TABLET PO SCH (08:29)
[2017-04-16] MEDS: DICLOFENAC 1% GEL 100 GM (VOLTAREN) TUBE TOP SCH ×4 (08:29→20:33)
[2017-04-16] MEDS: LACTULOSE SYRUP 10GM/15ML (ENULOSE) 30ML UDC PO SCH ×2 (08:29→09:00)
[2017-04-16] MEDS: FAMOTIDINE 20 MG (PEPCID) TABLET PO SCH ×2 (08:29→20:33)
[2017-04-16] MEDS: A & D OINT 60 GM TUBE TOP SCH (08:32)
--- NOTE | 2017-04-16 09:02 | Physical Therapy Daily Note ---
PT Daily Note-Current Subjective Pt. states he still has some dizziness today and feels it is from the med change that is for BP. "Im taking double what I use to take". Wants to go home Fri Pain Numeric Pain Scale: 3 Location: Medial Location Body Site: Back Pain Description: Ache Mental Status Patient Orientation: Normal For Age Transfers Functional [place] Measure 0=Not Assessed/NA 4=Minimal Assistance 1=Total Assistance 5=Supervision or Setup 2=Maximal Assistance 6=Modified [place] 3=Moderate Assistance 7=Complete IndependenceIRFPAI Quality Coding Scale 6 Independent with activity with or without an assistive device 5 Patient requires set up or clean up by helper. Patient completes activity by themselves 4 Supervision or touching assist (CGA). [place] provide cues , steadying assist 3 The helper provides less than half the effort to complete the activity 2 The helper provides more than half the effort to complete the activity 1 Dependent. The helper does all the effort to complete an activity 7 Patient refused to complete or attempt activity 9 The patient did not perform the activity before the current illness or injury 88 Not attempted due to Medical conditions or safety concerns Transfers (B, C, W/C) (FIM): 4 Scootin Rollin Supine to/from Sit: 4 Sit to/from Stand: 4 Pt. states he has been sleeping in his recliner for quite some time," just got lazy" Pt. observed turning 180 degrees without device unsafely today . Weight Bearing Right Lower Extremity: Right Full Weight Bearing Left Lower Extremity: Left Full Weight Bearing Gait Training Does the Patient Walk?: Yes Gait (FIM): 4 Distance (FIM): 3=150 ft Gait Level of Assist: 4 Gait Persons Needed: 1 Gait Assistive Device: Walker Donnie Wheelchair Training Does the Pt Use a Wheelchair?: Yes Wheelchair (FIM): 6 Wheelchair Distance: 3=150 ft Wheelchair Level of Assist: 6 Type of Wheelchair: Manual Stair Training Stair Training: Handrails/: 1 handrail Stairs (FIM): 2 #of Steps: 4 Stairs: Pattern: Step to Level of Assist: 4 needed cuing for sequence Exercises Supine Ex: Bridging, Rolling, Heel Slides, Straight leg raise, Hip abd/add Supine Reps: 12 (stretching as well to LLE) NuStep Minutes: 12 NuStep Workload: 5 Assessment Current Status: Good Progress at risk for falls PT Short Term Goals Short Term Goals Time Frame: Apr 12, 2017 Transfers (B,C,W/C) (FIM): 4 (met) Gait (FIM): 4 Distance (FIM): 3=150 ft Gait Assistive Device: Walker Donnie Wheelchair distance (FIM): 3=150 ft Wheelchair Distance: 200'x2 Wheelchair Level of Assist: 6 Stairs (FIM): 3 # of Steps: 12 PT Quenching Car Operator Goals Quenching Car Operator Goals PT Custodial Goals Time Frame: May 02, 2017 Transfers (B,C,W/C) (FIM): 6 Sit to Lying (QC): 6 Lying-Sitting on Side/Bed(QC): 6 Sit to Stand (QC): 6 Rollin Roll Left to Right (QC): 6 Chair/Xkk-bo-Srlht Xfer(QC): 6 Car Transfer (QC): 4 Does the Patient Walk: Yes Gait (FIM): 4 Gait distance (FIM): 3=150 ft Distance: 150 Walk 10 feet (QC): 4 Walk 10ft-Uneven Surface(QC): 4 Walk 50ft with 2 Turns (QC): 4 Walk 150 ft (QC): 4 Gait Level of Assist: 4 Gait Assistive Device: Walker Donnie Does the Pt use WC or Scooter?: Yes Wheelchair (FIM): 6 Wheelchair distance (FIM): 3=150 ft Distance: 250 Wheelchair Level of Assist: 6 Wheel 50 feet with 2 turns (QC: 6 Stairs (FIM): 4 # of Steps: 12 1 Step (curb) (QC): 3 4 Steps (QC): 3 12 Steps (QC): 3 Stairs Level Of Assist: 4 Picking up an Object (QC): 2 PT Plan Treatment/Plan Treatment Plan: Continue Plan of Care Treatment Plan: Bed Mobility, Education, Functional Activity Madalyn, Functional Strength, Group Therapy, Gait, Safety, Therapeutic Exercise, Transfers Treatment Duration: Apr 26, 2017 Frequency: At least 5 of 7 days/Wk (IRF) Estimated Hrs Per Day: 1.5 hours per day Patient and/or Family Agrees t: Yes Safety Risks/Education Patient Education: Gait Training, Transfer Techniques, Steps, Correct Positioning, W/C Management, Safety Issues Teaching Recipient: Patient Teaching Methods: Demonstration, Discussion Response to Teaching: Verbalize Understanding, Return Demonstration, Reinforcement Needed Time/GCodes Time In: 800 Time Out: 900 Total Billed Treatment Time: 60 Total Billed Treatment 1,FA30m,EX15m,GT15m G Codes Necessary: TRAVON Sorto PTA Apr 16, 2017 09:02
--- NOTE | 2017-04-16 13:04 | Cardiology Progress Note ---
Cardiology SOAP Progress Note Subjective: Mild shortness of breath Objective: I&O/Vital Signs Vital Sign - Last 12Hours 04/16/17 06:00 Temp 97.8 Pulse 88 Resp 17 B/P (MAP) 106/67 Pulse Ox 98 O2 Delivery Room Air Weight (Pounds): 147 Weight (Ounces): 0.6 Weight (Calculated Kilograms): [id number] Constitutional: No appears stated age, No AAO x 3, No apparent distress, No PERRL, No well-developed, No well-nourished, No other Respiratory: No accessory muscle use, No respiratory distress, No chest tender , No chest expansion is symmetric, No chest is bilaterally symmetric, No lungs clear to percussion, No lungs clear to auscultation, No crackles, No rhonchi, No rales, No stridor, No wheezing, No pleural rub, No other Cardiovascular: regular rate-rhythm, No irregularly irregular, No extra beats, No parasternal heave is noted, No JVD, No edema, No bradycardia, No tachycardia , No point of maximal impulse, No cardiac thrills are palpable, S1 and S2, No gallop/S3, No gallop/S4, No diastolic murmur, No systolic murmur, No friction rub, No click, No other Gastrointestional: No tender, No soft, No round, No distended, No pulsatile mass, No organomegaly, No guarding, No rebound, No tenderness, No hernia, No mass, No audible bowel sounds, No abnormal bowel sounds, No abdominal bruits, No spleenomegaly, No other Extremities: No normal range of motion, No non-tender, No normal inspection, No pedal edema, No calf tenderness, No normal capillary refill, No pelvis stable , No calf tenderness, No inflammation, No pedal edema, No slow capillary refill , No swelling, No other, No abrasion, No clubbing, No cyanosis, No ecchymosis, No laceration, No no lower extremity edema bilateral, No significant edema, No tenderness, No wound Neurologic/Psychiatric: alert, normal mood/affect, oriented x 3, motor weakness Skin: No normal color, No warm/dry, No cyanosis, No cool, No diaphoresis, No damp, No ecchymosis, No jaundice, No mottled, No pallor, No rash, No tattoos/ piercings, No ulcerations, No rash on exposed areas, No ulcerations on exposed areas, No other Results/Procedures: Labs Laboratory Tests 04/16/17 05:20: Prothrombin Time 17.1H, INR Comment 1.4 A/P: Assessment/Dx: CVA, CAD, pericardial effusion, cardiomyopathy, atrial fibrillation, CHF, weakness. Plan: Weakness: Inpatient rehabilitation. Hyponatremia: Defer to primary team CVA with residual deficit continue on Plavix. Pericardial effusion:Echocardiogram shows mild to moderate pericardial effusion. No significant tamponade physiology. CAD: Previous stents. Continue Plavix, statin, beta radha, MARIA G inhibitor. status post cath which shows previous LAD stent to be occluded. no intervention. We got old records from previous hospital which showed that the LAD stent is chronically occluded. Patient does have proximal LAD disease following which there is a large septal rough patcher as well as a first diagonal artery. If the patient develops further chest pain we will consider PCI to the proximal LAD into the first diagonal. However if the patient's rest of the stay is unremarkable we will defer to his primary wildland firefighter. Cardiomyopathy: EF 20-25%. Not in congestive heart failure on examination. DC carvedilol and start metoprolol. Decrease valsartan to 40 mg a day. Atrial fibrillation: Sinus rhythm. Pulse was regular. Continue warfarin. Thank you for your consultation. Please call me if you have any questions. Eboni Nugent MD, FACP, FACC, FSCAI, FHRS, CCDS Interventional Cardiology Cardiac Electrophysiology Vascular Medicine and Endovascular Interventions Amaya NUGENT MD Apr 16, 2017 13:04
[2017-04-16] MEDS: BISACODYL 10 MG SUPP (DULCOLAX) PR PRN (14:36)
--- NOTE | 2017-04-16 15:15 | Therapy Group Daily Note ---
Therapy Daily Group Note Patient Education Topic Other List Below (transfer safety and skills, home safety) Exercises LE Seated Exercise, UE Exercise Other/Notes Pt. attended PT OT group this date . Pt. did come via w/c and SB assist . Pt. shared his name and introduction and was very friendly and talkative. Pt. was willing participant in seated exercise group. Pt. did share about a fall he encountered early in his life. TRF skills were demonstrated to all pts with tips for safety and technique. Home safety was reviewed with virtual tour on HD. Pt in room after with gupta at hand Start Time: 13:00 Stop Time: 14:15 Total Billed Treatment Time: 75 Total Billed Treatment 1,GRP TRAVON IBANEZ EFFICIENCY MINER BLASTING Apr 16, 2017 15:15
[2017-04-16] MEDS ORDERED: FLEET ENEMA ADULT 1 EA BTL PR PRN (16:00)
--- NOTE | 2017-04-16 16:06 | Occupational Ther Daily Note ---
OT Current Status-Daily Note Subjective Pt alert, in bathroom. Pt agreed to therapy. Pt c/o fatigue, no pain. Mental Status/Objective Patient Orientation: Person, Place, Time, Situation Functional [place] Measure 0=Not Assessed/NA 4=Minimal Assistance 1=Total Assistance 5=Supervision or Setup 2=Maximal Assistance 6=Modified [place] 3=Moderate Assistance 7=Complete [place] ADL-Treatment Pt declined shower. Pt requested to use bathroom. Pt transferred on/off toilet using grabbars and w/c with SBA. Pt was able to manipulate clothing with CGA and cleansed self. Pt able to maneuver w/c throughout room and to therapy gym. After therapy, pt wanted lay down in bed. Transferred with SBA. Min A to lift LE's in bed. Call light/phone in reach. All needs met in room. Functional [place] Measure 0=Not Assessed/NA 4=Minimal Assistance 1=Total Assistance 5=Supervision or Setup 2=Maximal Assistance 6=Modified [place] 3=Moderate Assistance 7=Complete IndependenceIRFPAI Quality Coding Scale 6 Independent with activity with or without an assistive device 5 Patient requires set up or clean up by helper. Patient completes activity by themselves 4 Supervision or touching assist (CGA). [place] provide cues , steadying assist 3 The helper provides less than half the effort to complete the activity 2 The helper provides more than half the effort to complete the activity 1 Dependent. The helper does all the effort to complete an activity 7 Patient refused to complete or attempt activity 9 The patient did not perform the activity before the current illness or injury 88 Not attempted due to Medical conditions or safety concerns Toileting (FIM): 4 Toileting Hygiene (QC): 4 Transfers (B, C, W/C) (FIM): 5 Toilet/Commode Transfer (FIM): 5 Toilet Transfer (QC): 4 Other Treatment Pt completed R fine motor and strength tasks to increase dexterity and strength for daily functional tasks. MHP to L UE then massage and stretch to hand, wrist , forearm and elbow to increase ROM and decrease pain with movement. OT Short Term Goals Short Term Goals Time Frame: Apr 12, 2017 Bathing(FIM): 4 Upper Body Dressing(FIM): 4 Lower Body Dressing(FIM): 4 Toileting(FIM): 4 Transfers (B,C,W/C) (FIM): 4 (met) Shower Transfer(FIM): 4 Additional Short Term Goals: 1-Demonstrate ADL Tasks, 2-Verbalize Understanding , 3-ImproveStrength/Madalyn 1=Demonstrate adherence to instructed precautions during ADL tasks. 2=Patient will verbalize/demonstrate understanding of assistive devices/ modifications for ADL. 3=Patient will improve strength/tolerance for activity to enable patient to perform ADL's. OT Plaster Form Maker Goals Fdc Goals Time Frame: Apr 26, 2017 Eating (FIM): 6 Eating (QC): 6 Groomin Oral Hygiene (QC): 6 Bathing(FIM): 5 Shower/Bathe Self (QC): 5 Upper Body Dressing(FIM): 5 Upper Body Dressing (QC): 5 Lower Body Dressing(FIM): 5 Lower Body Dressing (QC): 4 On/Off Footwear (QC): 5 Toileting(FIM): 6 Toileting Hygiene (QC): 6 Toilet/Commode Transfer(FIM): 6 Toilet/Commode Transfer (QC): 6 Shower Transfer(FIM): 5 Additional Goals: 1-Demonstrate ADL Tasks, 2-Verbalize Understanding, 3- ImproveStrength/Madalyn 1=Demonstrate adherence to instructed precautions during ADL tasks. 2=Patient will verbalize/demonstrate understanding of assistive devices/ modifications for ADL. 3=Patient will improve strength/tolerance for activity to enable patient to perform ADL's. OT Education/Plan Problem List/Assessment Pt to benefit from skilled OT intervention for ADL training, transfers, strengthening, and home safety education to maximize level of function and allow safe discharge home. Discharge Recommendations Plan/Recommendations: Continue POC Treatment Plan/Plan of Care Patient would benefit from OT for education, treatment and training to promote independence in ADL's, mobility, safety and/or upper extremity function for ADL' s. Plan of Care: ADL Retraining, Functional Mobility, Group Exercise/Act as Ind, UE Funct Exercise/Act Treatment Duration: Apr 26, 2017 Frequency: At least 5 of 7 days/Wk (IRF) Estimated Hrs Per Day: 1.5 hours per day Agreement: Yes Rehab Potential: Good Time/GCodes Start Time: 10:15 Stop Time: 11:15 Total Time Billed (hr/min): 60 Billed Treatment Time 1 visit-NM2 (35 min) FA 2 (25 min) TULIO BERGMAN Apr 16, 2017 16:06
[2017-04-16] MEDS: warFARin 5 MG (COUMADIN) TAB PO SCH (18:42)
[2017-04-16 18:56] VITALS: BP 142/82
[2017-04-16] MEDS: LORATADINE (CLARITIN) 10 MG TAB PO SCH (20:33)
[2017-04-16] MEDS: OLANZapine 5 MG (ZyPREXA) TAB PO SCH (20:33)
[2017-04-16] MEDS: VALSARTAN 80 MG (DIOVAN) TAB PO SCH (20:34)
[2017-04-16] MEDS: FINASTERIDE (PROSCAR) 5 MG TAB PO SCH (20:34)
[2017-04-16] MEDS: ALPRAZolam 0.5 MG (XANAX) TAB PO PRN (20:38)
[2017-04-17 05:09] VITALS: BP 104/68
[2017-04-17 05:30] LABS: INR 1.4 (0.8-1.4)
[2017-04-17] MEDS: ACETAMINOPHEN 325 MG TABLET/CAPLET (TYLENOL) PO PRN (05:31)
[2017-04-17] MEDS: LACTULOSE SYRUP 10GM/15ML (ENULOSE) 30ML UDC PO SCH (08:28)
[2017-04-17] MEDS: POLYETHYLENE GLYCOL 17 GM (MIRALAX) PACK PO SCH (08:28)
[2017-04-17] MEDS: ATORVASTATIN 40 MG (LIPITOR) TABLET PO SCH (08:28)
[2017-04-17] MEDS: BETAMETHASONE/CLOTRIM CREAM (LOTRISONE) 45 GM TP SCH ×2 (08:29→21:02)
[2017-04-17] MEDS: FAMOTIDINE 20 MG (PEPCID) TABLET PO SCH ×2 (08:29→21:00)
[2017-04-17] MEDS: ALFUZOSIN HCL 10 MG TAB (UROXATRAL) PO SCH (08:29)
[2017-04-17] MEDS: TRIAMCINOLONE 0.5% CR (KENALOG) 15 GM TUBE TOP SCH (08:29)
[2017-04-17] MEDS: CLOPIDOGREL 75 MG (PLAVIX) TABLET PO SCH (08:29)
[2017-04-17] MEDS: DICLOFENAC 1% GEL 100 GM (VOLTAREN) TUBE TOP SCH ×4 (08:29→21:01)
[2017-04-17] MEDS: MAGNESIUM OXIDE (MAG-OX)400 MG TAB PO SCH (08:29)
[2017-04-17] MEDS: A & D OINT 60 GM TUBE TOP SCH (08:32)
[2017-04-17] MEDS: DOCUSATE SODIUM 100 MG (COLACE) CAP PO SCH (08:33)
--- NOTE | 2017-04-17 11:57 | Physical Therapy Daily Note ---
PT Daily Note-Current Subjective Patient has no complaints of pain but has been having a lot of spasms in his left arm. Appearance Patient in wheelchair at bedside post tx, has nurse call, phone, tray, all needs met. Mental Status Patient Orientation: Normal For Age Transfers Functional [place] Measure 0=Not Assessed/NA 4=Minimal Assistance 1=Total Assistance 5=Supervision or Setup 2=Maximal Assistance 6=Modified [place] 3=Moderate Assistance 7=Complete IndependenceIRFPAI Quality Coding Scale 6 Independent with activity with or without an assistive device 5 Patient requires set up or clean up by helper. Patient completes activity by themselves 4 Supervision or touching assist (CGA). [place] provide cues , steadying assist 3 The helper provides less than half the effort to complete the activity 2 The helper provides more than half the effort to complete the activity 1 Dependent. The helper does all the effort to complete an activity 7 Patient refused to complete or attempt activity 9 The patient did not perform the activity before the current illness or injury 88 Not attempted due to Medical conditions or safety concerns Transfers (B, C, W/C) (FIM): 5 Scootin Rollin Roll Left to Right (QC): 6 Supine to/from Sit: 6 Sit to/from Stand: 5 Sit to Lying (QC): 6 Sit to Stand (QC): 4 Chair/Euc-oi-Fvztb Xfer(QC): 4 Bed to/from Chair: 5 Patient performs bed mobility with mod I, transfers and sit to stand with SBA. Weight Bearing Right Lower Extremity: Right Full Weight Bearing Left Lower Extremity: Left Full Weight Bearing Gait Training Gait (FIM): 5 Distance: 150'x2 Walk 10 feet (QC): 4 Walk 50 ft with 2 Turns(QC): 4 Walk 150 ft (QC): 4 Walking 10ft/uneven surface-QC: 4 Gait Level of Assist: 5 Gait Persons Needed: 1 Gait Assistive Device: Walker Donnie Patient ambulates 150' with a hemiwalker with SBA and using an AFO on the left side (including 50' with at least 2 turns of 90 degrees). Patient can ambulate 10' over an uneven surface but needs CGA. Wheelchair Training Does the Pt Use a Wheelchair?: Yes Wheelchair (FIM): 6 Distance: 200'x2 Wheel 50 ft with 2 turns (QC): 6 Wheel 150 ft (QC): 6 Type of Wheelchair: Manual Stair Training Stair Training: Handrails/: 1 handrail Stairs (FIM): 2 #of Steps: 4 1 Step (curb) (QC): 4 4 Steps (QC): 4 12 Steps (QC): 88 Stairs: Pattern: Step to Level of Assist: 4 Patient can go up and down 4 steps using 1 handrail with CGA. Patient uses appropriate step pattern, he fatigues fairly quickly and that keeps him from doing more than 4 steps. Balance Picking up an Object (QC): 88 Exercises NuStep Minutes: 15 NuStep Workload: 6 Treatments bed mobility and transfers, ambulation, functional strengthening, stair training Assessment Current Status: Fair Progress Patient has improved his mobility and strength during his stay, he still has impaired endurance and fatigues quickly. PT Short Term Goals Short Term Goals Time Frame: Apr 12, 2017 Transfers (B,C,W/C) (FIM): 4 (met) Gait (FIM): 4 Distance (FIM): 3=150 ft Gait Assistive Device: Walker Donnie Wheelchair distance (FIM): 3=150 ft Wheelchair Distance: 200'x2 Wheelchair Level of Assist: 6 Stairs (FIM): 3 # of Steps: 12 PT Fpc Goals Camp Maintenance Supervisor Goals PT Camp Maintenance Supervisor Goals Time Frame: May 02, 2017 Transfers (B,C,W/C) (FIM): 6 Sit to Lying (QC): 6 (met) Lying-Sitting on Side/Bed(QC): 6 (met) Sit to Stand (QC): 6 Rollin (mt) Roll Left to Right (QC): 6 (met) Chair/Hsm-fq-Myurt Xfer(QC): 6 Car Transfer (QC): 4 Does the Patient Walk: Yes Gait (FIM): 4 (met) Gait distance (FIM): 3=150 ft Distance: 150 Walk 10 feet (QC): 4 (met) Walk 10ft-Uneven Surface(QC): 4 (met) Walk 50ft with 2 Turns (QC): 4 (met) Walk 150 ft (QC): 4 (met) Gait Level of Assist: 4 Gait Assistive Device: Walker Donnie Does the Pt use WC or Scooter?: Yes Wheelchair (FIM): 6 (met) Wheelchair distance (FIM): 3=150 ft Distance: 250 Wheelchair Level of Assist: 6 Wheel 50 feet with 2 turns (QC: 6 (met) Stairs (FIM): 4 # of Steps: 12 1 Step (curb) (QC): 3 (met) 4 Steps (QC): 3 (met) 12 Steps (QC): 3 Stairs Level Of Assist: 4 Picking up an Object (QC): 2 PT Plan Problem List Problem List: Activity Tolerance, Functional Strength, Safety, Balance, Gait, Transfer, Bed Mobility Treatment/Plan Treatment Plan: Continue Plan of Care Treatment Plan: Bed Mobility, Education, Functional Activity Madalyn, Functional Strength, Group Therapy, Gait, Safety, Therapeutic Exercise, Transfers Treatment Duration: Apr 26, 2017 Frequency: At least 5 of 7 days/Wk (IRF) Estimated Hrs Per Day: 1.5 hours per day Patient and/or Family Agrees t: Yes Safety Risks/Education Patient Education: Gait Training, Transfer Techniques, Steps, Correct Positioning, W/C Management, Disease Process, Safety Issues Teaching Recipient: Patient Teaching Methods: Demonstration, Discussion Response to Teaching: Reinforcement Needed Time/GCodes Time In: 1100 Time Out: 1200 Total Billed Treatment Time: 60 Total Billed Treatment 1 visit EX 15' GT 30' FA 15' ADONAY MULLEN PT Apr 17, 2017 11:57
--- NOTE | 2017-04-17 13:53 | Occupational Ther Daily Note ---
OT Current Status-Daily Note Subjective Pt alert, lying in bed. Pt agreed to therapy. No c/o pain at this time. Mental Status/Objective Patient Orientation: Person, Place, Time, Situation Functional [place] Measure 0=Not Assessed/NA 4=Minimal Assistance 1=Total Assistance 5=Supervision or Setup 2=Maximal Assistance 6=Modified [place] 3=Moderate Assistance 7=Complete [place] ADL-Treatment Functional [place] Measure 0=Not Assessed/NA 4=Minimal Assistance 1=Total Assistance 5=Supervision or Setup 2=Maximal Assistance 6=Modified [place] 3=Moderate Assistance 7=Complete IndependenceIRFPAI Quality Coding Scale 6 Independent with activity with or without an assistive device 5 Patient requires set up or clean up by helper. Patient completes activity by themselves 4 Supervision or touching assist (CGA). [place] provide cues , steadying assist 3 The helper provides less than half the effort to complete the activity 2 The helper provides more than half the effort to complete the activity 1 Dependent. The helper does all the effort to complete an activity 7 Patient refused to complete or attempt activity 9 The patient did not perform the activity before the current illness or injury 88 Not attempted due to Medical conditions or safety concerns Eating (FIM): 5 (Dentures. Pt requires assistance to open packages/containers then is able to use regular utensils to cut food and feed self.) Eating (QC): 5 Grooming (FIM): 6 (Sitting in w/c, pt is able to complete all grooming by self. ) Oral Hygiene (QC): 6 Bathing (FIM): 4 (Using grabbar, shower bench and hand held shower pt is able to bathe self then holds onto grabbar while JACOBS dries buttocks. Pt able to dry all other areas.) Bathing Location: L Arm, R Arm, L Upper Leg, R Upper Leg, L Lower Leg ( including foot), R Lower Leg (including foot), Chest, Abdomen, Perineal Area Shower/Bathe Self (QC): 3 Upper Body (FIM): 4 (After set up, pt requires assist to initiate shirt over L UE then is able to complete rest of donning shirt by self. Pt doffs shirt by self.) Upper Body Dressing (QC): 3 Lower Body Dressing (FIM): 5 (After set up, pt able to doff pants and assist to doff socks. Pt able to don pants over feet while assist to hold foot on knee. Assist to don socks/shoes. Pt able to stand with SBA to hike pants over hips.) Lower Body Dressing (QC): 3 On/Off Footwear (QC): 3 Toileting (FIM): 6 (Using grabbar and w/c, pt able to cleanse self and manipulate clothing.) Toileting Hygiene (QC): 6 Transfers (B, C, W/C) (FIM): 5 (Supervision with transfers using ro-walker.) Toilet/Commode Transfer (FIM): 5 (Using grabbar and w/c, pt able to complete with supervision.) Toilet Transfer (QC): 4 Shower Transfer(FIM): 5 (Using grabbar, shower bench and w/c, pt able to complete with supervision.) After therapy, pt sitting in w/c with call light/phone in reach. All needs met in room. OT Short Term Goals Short Term Goals Time Frame: Apr 12, 2017 Bathing(FIM): 4 Upper Body Dressing(FIM): 4 Lower Body Dressing(FIM): 4 Toileting(FIM): 4 Transfers (B,C,W/C) (FIM): 4 (met) Shower Transfer(FIM): 4 Additional Short Term Goals: 1-Demonstrate ADL Tasks, 2-Verbalize Understanding , 3-ImproveStrength/Madalyn 1=Demonstrate adherence to instructed precautions during ADL tasks. 2=Patient will verbalize/demonstrate understanding of assistive devices/ modifications for ADL. 3=Patient will improve strength/tolerance for activity to enable patient to perform ADL's. OT Celebrity Manager Goals Correction Goals Time Frame: Apr 26, 2017 Eating (FIM): 6 Eating (QC): 6 Groomin Oral Hygiene (QC): 6 Bathing(FIM): 5 Shower/Bathe Self (QC): 5 Upper Body Dressing(FIM): 5 Upper Body Dressing (QC): 5 Lower Body Dressing(FIM): 5 Lower Body Dressing (QC): 4 On/Off Footwear (QC): 5 Toileting(FIM): 6 Toileting Hygiene (QC): 6 Toilet/Commode Transfer(FIM): 6 Toilet/Commode Transfer (QC): 6 Shower Transfer(FIM): 5 Additional Goals: 1-Demonstrate ADL Tasks, 2-Verbalize Understanding, 3- ImproveStrength/Madalyn 1=Demonstrate adherence to instructed precautions during ADL tasks. 2=Patient will verbalize/demonstrate understanding of assistive devices/ modifications for ADL. 3=Patient will improve strength/tolerance for activity to enable patient to perform ADL's. OT Education/Plan Problem List/Assessment Pt to benefit from skilled OT intervention for ADL training, transfers, strengthening, and home safety education to maximize level of function and allow safe discharge home. Discharge Recommendations Plan/Recommendations: Continue POC Treatment Plan/Plan of Care Patient would benefit from OT for education, treatment and training to promote independence in ADL's, mobility, safety and/or upper extremity function for ADL' s. Plan of Care: ADL Retraining, Functional Mobility, Group Exercise/Act as Ind, UE Funct Exercise/Act Treatment Duration: Apr 26, 2017 Frequency: At least 5 of 7 days/Wk (IRF) Estimated Hrs Per Day: 1.5 hours per day Agreement: Yes Rehab Potential: Good Time/GCodes Start Time: 08:00 Stop Time: 09:00 Total Time Billed (hr/min): 60 Billed Treatment Time 1 visit-ADL 4 (60 min) TULIO BERGMAN Apr 17, 2017 13:53
--- NOTE | 2017-04-17 14:36 | Physical Therapy Daily Note ---
PT Daily Note-Current Subjective Patient agrees to PT. Patient c/o bilateral knee pain from a.m. treatment. RN is aware. Pain Numeric Pain Scale: 5-Moderate Pain Location: Right, Left Location Body Site: Knee Pain Description: Ache Mental Status Patient Orientation: Normal For Age Transfers Functional [place] Measure 0=Not Assessed/NA 4=Minimal Assistance 1=Total Assistance 5=Supervision or Setup 2=Maximal Assistance 6=Modified [place] 3=Moderate Assistance 7=Complete IndependenceIRFPAI Quality Coding Scale 6 Independent with activity with or without an assistive device 5 Patient requires set up or clean up by helper. Patient completes activity by themselves 4 Supervision or touching assist (CGA). [place] provide cues , steadying assist 3 The helper provides less than half the effort to complete the activity 2 The helper provides more than half the effort to complete the activity 1 Dependent. The helper does all the effort to complete an activity 7 Patient refused to complete or attempt activity 9 The patient did not perform the activity before the current illness or injury 88 Not attempted due to Medical conditions or safety concerns Transfers (B, C, W/C) (FIM): 4 Scootin Sit to/from Stand: 4 Sit to Stand (QC): 4 Weight Bearing Right Lower Extremity: Right Full Weight Bearing Left Lower Extremity: Left Full Weight Bearing Gait Training Does the Patient Walk?: Yes Gait (FIM): 4 Distance (FIM): 3=150 ft Distance: 150' x 2 Walk 10 feet (QC): 4 Walk 50 ft with 2 Turns(QC): 4 Walk 150 ft (QC): 4 Gait Level of Assist: 4 Gait Persons Needed: 1 Gait Assistive Device: Walker Donnie step to gait sequence Assessment Patient requires time to complete all functional tasks due to fatigue this p.m. Patient will dismiss to home/AL with home health tomorrow. PT Short Term Goals Short Term Goals Time Frame: Apr 12, 2017 Transfers (B,C,W/C) (FIM): 4 (met) Gait (FIM): 4 Distance (FIM): 3=150 ft Gait Assistive Device: Walker Donnie Wheelchair distance (FIM): 3=150 ft Wheelchair Distance: 200'x2 Wheelchair Level of Assist: 6 Stairs (FIM): 3 # of Steps: 12 PT Lay Out Helper Goals [facility] Goals PT [facility] Goals Time Frame: May 02, 2017 Transfers (B,C,W/C) (FIM): 6 Sit to Lying (QC): 6 (met) Lying-Sitting on Side/Bed(QC): 6 (met) Sit to Stand (QC): 6 Rollin (mt) Roll Left to Right (QC): 6 (met) Chair/Siq-rl-Dhqra Xfer(QC): 6 Car Transfer (QC): 4 Does the Patient Walk: Yes Gait (FIM): 4 (met) Gait distance (FIM): 3=150 ft Distance: 150 Walk 10 feet (QC): 4 (met) Walk 10ft-Uneven Surface(QC): 4 (met) Walk 50ft with 2 Turns (QC): 4 (met) Walk 150 ft (QC): 4 (met) Gait Level of Assist: 4 Gait Assistive Device: Walker Donnie Does the Pt use WC or Scooter?: Yes Wheelchair (FIM): 6 (met) Wheelchair distance (FIM): 3=150 ft Distance: 250 Wheelchair Level of Assist: 6 Wheel 50 feet with 2 turns (QC: 6 (met) Stairs (FIM): 4 # of Steps: 12 1 Step (curb) (QC): 3 (met) 4 Steps (QC): 3 (met) 12 Steps (QC): 3 Stairs Level Of Assist: 4 Picking up an Object (QC): 2 PT Plan Treatment/Plan Treatment Plan: Continue Plan of Care Treatment Plan: Bed Mobility, Education, Functional Activity Madalyn, Functional Strength, Group Therapy, Gait, Safety, Therapeutic Exercise, Transfers Treatment Duration: Apr 26, 2017 Frequency: At least 5 of 7 days/Wk (IRF) Estimated Hrs Per Day: 1.5 hours per day Patient and/or Family Agrees t: Yes Time/GCodes Time In: 1402 Time Out: 1432 Total Billed Treatment Time: 30 Total Billed Treatment 1 visit GT x 2 30 min NATE HARPER PT Apr 17, 2017 14:36
--- NOTE | 2017-04-17 15:05 | Occupational Ther Daily Note ---
OT Current Status-Daily Note Subjective Pt alert, sitting in w/c. Pt agreed to therapy. No c/o pain at this time. Mental Status/Objective Patient Orientation: Person, Place, Time, Situation Functional [place] Measure 0=Not Assessed/NA 4=Minimal Assistance 1=Total Assistance 5=Supervision or Setup 2=Maximal Assistance 6=Modified [place] 3=Moderate Assistance 7=Complete [place] ADL-Treatment Functional [place] Measure 0=Not Assessed/NA 4=Minimal Assistance 1=Total Assistance 5=Supervision or Setup 2=Maximal Assistance 6=Modified [place] 3=Moderate Assistance 7=Complete IndependenceIRFPAI Quality Coding Scale 6 Independent with activity with or without an assistive device 5 Patient requires set up or clean up by helper. Patient completes activity by themselves 4 Supervision or touching assist (CGA). [place] provide cues , steadying assist 3 The helper provides less than half the effort to complete the activity 2 The helper provides more than half the effort to complete the activity 1 Dependent. The helper does all the effort to complete an activity 7 Patient refused to complete or attempt activity 9 The patient did not perform the activity before the current illness or injury 88 Not attempted due to Medical conditions or safety concerns Other Treatment Pt maneuvered w/c to laundry room and was able to reach into dryer and pull out clothes then folded pants. Pt then maneuvered w/c back to room and was able to open small package of jelly for lunch. Pt then required assistance to open milk carton and pudding. Pt used regular utensils to spread jelly onto pancake and eat without difficulty. Call Light/phone in reach. All needs met in room. OT Short Term Goals Short Term Goals Time Frame: Apr 12, 2017 Bathing(FIM): 4 Upper Body Dressing(FIM): 4 Lower Body Dressing(FIM): 4 Toileting(FIM): 4 Transfers (B,C,W/C) (FIM): 4 (met) Shower Transfer(FIM): 4 Additional Short Term Goals: 1-Demonstrate ADL Tasks, 2-Verbalize Understanding , 3-ImproveStrength/Madalyn 1=Demonstrate adherence to instructed precautions during ADL tasks. 2=Patient will verbalize/demonstrate understanding of assistive devices/ modifications for ADL. 3=Patient will improve strength/tolerance for activity to enable patient to perform ADL's. OT [facility] Goals [facility] Goals Time Frame: Apr 26, 2017 Eating (FIM): 6 Eating (QC): 6 Groomin Oral Hygiene (QC): 6 Bathing(FIM): 5 Shower/Bathe Self (QC): 5 Upper Body Dressing(FIM): 5 Upper Body Dressing (QC): 5 Lower Body Dressing(FIM): 5 Lower Body Dressing (QC): 4 On/Off Footwear (QC): 5 Toileting(FIM): 6 Toileting Hygiene (QC): 6 Toilet/Commode Transfer(FIM): 6 Toilet/Commode Transfer (QC): 6 Shower Transfer(FIM): 5 Additional Goals: 1-Demonstrate ADL Tasks, 2-Verbalize Understanding, 3- ImproveStrength/Madalyn 1=Demonstrate adherence to instructed precautions during ADL tasks. 2=Patient will verbalize/demonstrate understanding of assistive devices/ modifications for ADL. 3=Patient will improve strength/tolerance for activity to enable patient to perform ADL's. OT Education/Plan Problem List/Assessment Pt to benefit from skilled OT intervention for ADL training, transfers, strengthening, and home safety education to maximize level of function and allow safe discharge home. Discharge Recommendations Plan/Recommendations: Continue POC Treatment Plan/Plan of Care Patient would benefit from OT for education, treatment and training to promote independence in ADL's, mobility, safety and/or upper extremity function for ADL' s. Plan of Care: ADL Retraining, Functional Mobility, Group Exercise/Act as Ind, UE Funct Exercise/Act Treatment Duration: Apr 26, 2017 Frequency: At least 5 of 7 days/Wk (IRF) Estimated Hrs Per Day: 1.5 hours per day Agreement: Yes Rehab Potential: Good Time/GCodes Start Time: 13:30 Stop Time: 14:00 Total Time Billed (hr/min): 30 Billed Treatment Time 1 visit-FA 2 (30 min) TULIO BERGMAN Apr 17, 2017 15:05
[2017-04-17] MEDS: ACET/BUTAL/CAFF (FIORICET) TAB PO PRN (17:11)
[2017-04-17] MEDS: warFARin 5 MG (COUMADIN) TAB PO SCH (17:19)
[2017-04-17 18:00] VITALS: BP 149/81
--- NOTE | 2017-04-17 19:37 | PM & R (SOAP) Progress Note ---
Subjective Time Seen by Provider: 19:00 Subjective/Events-last exam Patient was seen in his room this evening Patient min assist for transfers Patient requesting a u/a as he feels some flank pain-will so order Review of Systems Genitourinary: Other (flank pain) Objective Exam Last Set of Vital Signs Vital Signs Date Time Temp Pulse Resp B/P (MAP) Pulse Ox O2 Delivery O2 Flow Rate FiO2 04/17/17 18:00 98.5 78 16 149/81 99 Room Air Capillary Refill : I&O Intake and Output 04/18/17 00:00 Intake Total 2000 ml Output Total 1800 ml Balance 200 ml Intake Oral 2000 ml Output Urine Total 1800 ml # Voids 5 # Bowel Movements 1 General: Alert, No Acute Distress HEENT: Atraumatic, PERRLA, EOMI, Mucous Memb Moist/[place] Neck: Supple, No JVD Lungs: Normal Air Movement Heart: Regular Rate Abdomen: Normal Bowel Sounds, Soft, No Tenderness Extremities: Other ( Blister flex aspect of fourth left finger and caalous over plantar aspect of left foot) Skin: Other (there is an active purplish blister on the flexor aspect of the proximal phalanx of the left fourth finger. 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 Coronary artery D Chronic anticoagulation Cardiology managing Fungal groin rash Blister left foot plantar aspect and left finger DR House has rxed Uirinary retention resolved Contip[ation treated Flank pain will check U/A Plan Continue PT/OT F/U with Cardiology pr Patient request an order for new w/c-last one was bought by patient when he was without insurance - SW will follow up-RX provided Treat Groin rash-done Dr House consulted re blisters-done appreciate his assistance Meds adjusted for constipation Monitor for any further constipatoipn or urinary retention Subtherapeutic INR- Increased Coumadin dosage-INR noted Check U/A See orders Discharge st for tomorrow to home in [place] with [facility] See orders. GRAEME GRESHAM MD Apr 17, 2017 19:37
[2017-04-17] MEDS ORDERED: FAMO20TA5 PO (19:47)
[2017-04-17] MEDS ORDERED: LACT20SO2 PO (19:47)
[2017-04-17] MEDS ORDERED: AD60O TOP (19:47)
[2017-04-17] MEDS ORDERED: WARF5TAB PO (19:47)
[2017-04-17] MEDS ORDERED: OLAN5TAB25 PO (19:47)
[2017-04-17] MEDS ORDERED: METO-270 PO (19:47)
[2017-04-17] MEDS ORDERED: DOCU100C37 PO (19:47)
[2017-04-17] MEDS: LORATADINE (CLARITIN) 10 MG TAB PO SCH (20:58)
[2017-04-17] MEDS: VALSARTAN 80 MG (DIOVAN) TAB PO SCH (20:59)
[2017-04-17] MEDS: OLANZapine 5 MG (ZyPREXA) TAB PO SCH (20:59)
[2017-04-17] MEDS: FINASTERIDE (PROSCAR) 5 MG TAB PO SCH (21:00)
[2017-04-17] MEDS: ALPRAZolam 0.5 MG (XANAX) TAB PO PRN (21:08)
[2017-04-17 22:46] LABS: BILIRUBIN,URINE NEGATIVE (NEGATIVE); KETONES,URINE NEGATIVE (NEGATIVE); LEUKOCYTE ESTERASE ,URINE NEGATIVE (NEGATIVE); NITRITE,URINE NEGATIVE (NEGATIVE); PH,URINE 6.5 (5-9); PROTEIN,URINE NEGATIVE (NEGATIVE); UROBILINOGEN,URINE NORMAL (NORMAL)
[2017-04-17 22:58] LABS: WBC,URINE RARE /HPF
[2017-04-18] MEDS: CYCLOBENZAPRINE 10 MG (FLEXERIL) TAB PO PRN (00:59)
[2017-04-18 06:00] VITALS: BP 146/82
[2017-04-18] MEDS: ACETAMINOPHEN 325 MG TABLET/CAPLET (TYLENOL) PO PRN (06:14)
[2017-04-18] MEDS: ALFUZOSIN HCL 10 MG TAB (UROXATRAL) PO SCH (06:14)
[2017-04-18 07:11] LABS: INR 1.6 (0.8-1.4); PROTHROMBIN TIME PATIENT 18.9 SEC (12.2-14.7)
[2017-04-18] MEDS: ATORVASTATIN 40 MG (LIPITOR) TABLET PO SCH (08:46)
[2017-04-18] MEDS: FAMOTIDINE 20 MG (PEPCID) TABLET PO SCH (08:46)
[2017-04-18] MEDS: DOCUSATE SODIUM 100 MG (COLACE) CAP PO SCH (08:46)
[2017-04-18] MEDS: MAGNESIUM OXIDE (MAG-OX)400 MG TAB PO SCH ×2 (08:46→08:51)
[2017-04-18] MEDS: CLOPIDOGREL 75 MG (PLAVIX) TABLET PO SCH (08:46)
[2017-04-18] MEDS: LACTULOSE SYRUP 10GM/15ML (ENULOSE) 30ML UDC PO SCH (08:47)
[2017-04-18] MEDS: DICLOFENAC 1% GEL 100 GM (VOLTAREN) TUBE TOP SCH (08:47)
[2017-04-18] MEDS: POLYETHYLENE GLYCOL 17 GM (MIRALAX) PACK PO SCH (08:47)
[2017-04-18] MEDS: A & D OINT 60 GM TUBE TOP SCH (08:48)
[2017-04-18] MEDS: BETAMETHASONE/CLOTRIM CREAM (LOTRISONE) 45 GM TP SCH (08:48)
--- NOTE | 2017-04-18 08:49 | PM & R (SOAP) Progress Note ---
Subjective Time Seen by Provider: 07:30 Subjective/Events-last exam Patient was seen in his roomthis AM U/A negative INR climbing with increased dose Coumadin now 1.6 Objective Exam Last Set of Vital Signs Vital Signs Date Time Temp Pulse Resp B/P (MAP) Pulse Ox O2 Delivery O2 Flow Rate FiO2 04/18/17 06:00 96.6 70 18 146/82 99 Room Air Capillary Refill : I&O Intake and Output 04/19/17 00:00 Intake Total 350 ml Output Total 575 ml Balance -225 ml Intake Oral 350 ml Output Urine Total 575 ml General: Alert, No Acute Distress HEENT: Atraumatic, PERRLA, EOMI, Mucous Memb Moist/[place] Neck: Supple, No JVD Lungs: Normal Air Movement Heart: Regular Rate Abdomen: Normal Bowel Sounds, Soft, No Tenderness Extremities: Other ( Blister flex aspect of fourth left finger and caalous over plantar aspect of left foot) Skin: Other (there is an active purplish blister on the flexor aspect of the proximal phalanx of the left fourth finger. There is no surrounding erythema.) Neuro: Other (Left HP) Results Lab Laboratory Tests 04/16/17 05:20: Prothrombin Time 17.1H, INR Comment 1.4 04/17/17 05:15: Prothrombin Time 17.0H, INR Comment 1.4 04/17/17 21:15: Urine Color YELLOW, Urine Clarity CLEAR, Urine pH 6.5, Urine Specific [place] 1.010L, Urine Protein NEGATIVE, Urine Glucose (UA) NEGATIVE, Urine Ketones NEGATIVE, Urine Nitrite NEGATIVE, Urine Bilirubin NEGATIVE, Urine Urobilinogen NORMAL, Urine Leukocyte Esterase NEGATIVE, Urine RBC (Auto) NEGATIVE, Urine RBC RARE, Urine WBC RARE, Urine Crystals NONE, Urine Bacteria NEGATIVE, Urine Casts NONE, Urine Mucus NEGATIVE, Urine Culture Indicated NO 04/18/17 06:55: Prothrombin Time 18.9H, INR Comment 1.6H Assessment/Plan Assessment General debil secondary to dehydration 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
--- NOTE | 2017-04-18 10:10 | Cardiology Progress Note ---
Cardiology SOAP Progress Note Subjective: No cardiac complaints. Objective: I&O/Vital Signs Vital Sign - Last 12Hours 04/18/17 06:00 Temp 96.6 Pulse 70 Resp 18 B/P (MAP) 146/82 Pulse Ox 99 O2 Delivery Room Air Weight (Pounds): 147 Weight (Ounces): 0.6 Weight (Calculated Kilograms): 66.842950 Constitutional: No appears stated age, No AAO x 3, No apparent distress, No PERRL, No well-developed, No well-nourished, No other Respiratory: No accessory muscle use, No respiratory distress, No chest tender , No chest expansion is symmetric, No chest is bilaterally symmetric, No lungs clear to percussion, No lungs clear to auscultation, No crackles, No rhonchi, No rales, No stridor, No wheezing, No pleural rub, No other Cardiovascular: regular rate-rhythm, No irregularly irregular, No extra beats, No parasternal heave is noted, No JVD, No edema, No bradycardia, No tachycardia , No point of maximal impulse, No cardiac thrills are palpable, S1 and S2, No gallop/S3, No gallop/S4, No diastolic murmur, No systolic murmur, No friction rub, No click, No other Gastrointestional: No tender, No soft, No round, No distended, No pulsatile mass, No organomegaly, No guarding, No rebound, No tenderness, No hernia, No mass, No audible bowel sounds, No abnormal bowel sounds, No abdominal bruits, No spleenomegaly, No other Extremities: No normal range of motion, No non-tender, No normal inspection, No pedal edema, No calf tenderness, No normal capillary refill, No pelvis stable , No calf tenderness, No inflammation, No pedal edema, No slow capillary refill , No swelling, No other, No abrasion, No clubbing, No cyanosis, No ecchymosis, No laceration, No no lower extremity edema bilateral, No significant edema, No tenderness, No wound Neurologic/Psychiatric: alert, normal mood/affect, oriented x 3, motor weakness Skin: No normal color, No warm/dry, No cyanosis, No cool, No diaphoresis, No damp, No ecchymosis, No jaundice, No mottled, No pallor, No rash, No tattoos/ piercings, No ulcerations, No rash on exposed areas, No ulcerations on exposed areas, No other Results/Procedures: Labs Laboratory Tests 04/17/17 21:15: Urine Color YELLOW, Urine Clarity CLEAR, Urine pH 6.5, Urine Specific [place] 1.010L, Urine Protein NEGATIVE, Urine Glucose (UA) NEGATIVE, Urine Ketones NEGATIVE, Urine Nitrite NEGATIVE, Urine Bilirubin NEGATIVE, Urine Urobilinogen NORMAL, Urine Leukocyte Esterase NEGATIVE, Urine RBC (Auto) NEGATIVE, Urine RBC RARE, Urine WBC RARE, Urine Crystals NONE, Urine Bacteria NEGATIVE, Urine Casts NONE, Urine Mucus NEGATIVE, Urine Culture Indicated NO 04/18/17 06:55: Prothrombin Time 18.9H, INR Comment 1.6H A/P: Assessment/Dx: CVA, CAD, pericardial effusion, cardiomyopathy, atrial fibrillation, CHF, weakness. Plan: Weakness: Inpatient rehabilitation. Hyponatremia: Defer to primary team CVA with residual deficit continue on Plavix. Pericardial effusion:Echocardiogram shows mild to moderate pericardial effusion. No significant tamponade physiology. CAD: Previous stents. Continue Plavix, statin, beta radha, MARIA G inhibitor. status post cath which shows previous LAD stent to be occluded. no intervention. We got old records from previous hospital which showed that the LAD stent is chronically occluded. Patient does have proximal LAD disease following which there is a large septal edge banding off bearer as well as a first diagonal artery. If the patient develops further chest pain we will consider PCI to the proximal LAD into the first diagonal. However if the patient's rest of the stay is unremarkable we will defer to his primary interior design assistant. Cardiomyopathy: EF 20-25%. Not in congestive heart failure on examination. DC carvedilol and start metoprolol. Decrease valsartan to 40 mg a day. Atrial fibrillation: Sinus rhythm. Pulse was regular. Continue warfarin. Okay to discharge and follow-up with primary interior design assistant in [place]. Thank you for your consultation. Please call me if you have any questions. Eboni Nugent MD, FACP, FACC, FSCAI, FHRS, CCDS Interventional Cardiology Cardiac Electrophysiology Vascular Medicine and Endovascular Interventions Amaya NUGENT MD Apr 18, 2017 10:09 am
--- NOTE | 2017-04-18 10:27 | Therapy Team Discharge Summary ---
Therapy Discharge Summary Discharge Recommendations Date of Discharge 04/18/16 Therapy D/C Recommendations: Assisted Living Physical Therapy Patient came to rehab following recent debility and previous CVA. Upon admission patient required mod assist for bed mobility and transfers, ambulated 48' with a hemiwalker with CGA and a left AFO, propelled a manual wheelchair 150 ' with mod I, and went up and down 4 steps using 1 handrail with min assist. Patient has been performing bed mobility and transfer training, balance and endurance training, functional strengthening, stair training, gait training, and education. 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 Now, patient performs bed mobility with mod I, transfers with SBA, ambulates 150' with a hemiwalker with SBA and a left AFO (including 50' with at least 2 turns of 90 degrees, but needs CGA for walking 10' over an uneven surface), is mod I with wheelchair mobility, and can go up and down 4 steps using 1 handrail with CGA. Patient is being discharged from this facility today and will be discharged from PT at this time. Occupational Therapy Decreased Activ Tolerance, Decreased UE Strength, Dependent Transfers, Impaired Coordination, Impaired Funct Balance, Impaired I ADL's, Impaired Self-Care Skills, Restricted Funct UE ROM PT Electrogalvanizing Machine Operator Goals Electrogalvanizing Machine Operator Goals PT Care Home Goals Time Frame: May 02, 2017 Transfers (B,C,W/C) (FIM): 6 Roll Left to Right (QC): 6 (met) Sit to Lying (QC): 6 (met) Lying-Sitting on Side/Bed(QC): 6 (met) Sit to Stand (QC): 6 Chair/Hqo-ot-Jpesl Xfer(QC): 6 Car Transfer (QC): 4 Does the Patient Walk: Yes Gait (FIM): 4 (met) Gait distance (FIM): 3=150 ft Distance: 150 Walk 10 feet (QC): 4 (met) Walk 10ft-Uneven Surface(QC): 4 (met) Walk 50ft with 2 Turns (QC): 4 (met) Walk 150 ft (QC): 4 (met) Gait Level of Assist: 4 Gait Assistive Device: Walker Donnie Does the Pt use WC or Scooter?: Yes Wheelchair (FIM): 6 (met) Wheelchair distance (FIM): 3=150 ft Distance: 250 Wheelchair Level of Assist: 6 Wheel 50 feet with 2 turns (QC: 6 (met) Stairs (FIM): 4 # of Steps: 12 1 Step (curb) (QC): 3 (met) 4 Steps (QC): 3 (met) 12 Steps (QC): 3 Stairs Level Of Assist: 4 Picking up an Object (QC): 2 OT Care Home Goals Electrogalvanizing Machine Operator Goals Time Frame: Apr 26, 2017 Eating (FIM): 6 Eating (QC): 6 Oral Hygiene (QC): 6 Grooming(FIM): 6 Bathing(FIM): 5 Shower/Bathe Self (QC): 5 Upper Body Dressing(FIM): 5 Upper Body Dressing (QC): 5 Lower Body Dressing(FIM): 5 Lower Body Dressing (QC): 4 On/Off Footwear (QC): 5 Toileting(FIM): 6 Toileting Hygiene (QC): 6 Toilet/Commode Transfer(FIM): 6 Toilet/Commode Transfer (QC): 6 Shower Transfer(FIM): 5 Additional Goals: 1-Demonstrate ADL Tasks, 2-Verbalize Understanding, 3- ImproveStrength/Madal[place] 1=Demonstrate adherence to instructed precautions during ADL tasks. 2=Patient will verbalize/demonstrate understanding of assistive devices/ modifications for ADL. 3=Patient will improve strength/tolerance for activity to enable patient to perform ADL's. ADONAY MULLEN PT Apr 18, 2017 10:27
[2017-04-18] MEDS: ACET/BUTAL/CAFF (FIORICET) TAB PO PRN (12:16)
[2017-04-18 13:21] VITALS: BP 146/82
--- NOTE | 2017-04-18 15:17 | Therapy Team Discharge Summary ---
Therapy Discharge Summary Discharge Recommendations Date of Discharge Apr 18, 2017 at 13:15 Therapy D/C Recommendations: Assisted Living Occupational Therapy Pt admitted to ARU following acute hospitalization with debility and previous CVA. On admission pt required mod assist for toileting and LE dressing, and min assist for bathing, UE dressing, and transfers. Skilled OT intervention focused on ADL training, transfers, strengthening, and home safety education. Pt progressed with therapy and by discharge is completing grooming and toileting with modified independence and eating, LE dressing, and transfers with SBA/ setup. Minimal assistance is required for UE dressing and bathing. Pt met goals for grooming, LE dressing, toileting, and shower transfer, but did not meet other OT LTG. Pt discharged from facility this date and will be D/C'd from ARU OT at this time. Decreased Activ Tolerance, Decreased UE Strength, Dependent Transfers, Impaired Coordination, Impaired Funct Balance, Impaired I ADL's, Impaired Self-Care Skills, Restricted Funct UE ROM PT Snf Goals Trading Specialist Goals PT Snf Goals Time Frame: May 02, 2017 Transfers (B,C,W/C) (FIM): 6 Roll Left to Right (QC): 6 (met) Sit to Lying (QC): 6 (met) Lying-Sitting on Side/Bed(QC): 6 (met) Sit to Stand (QC): 6 Chair/Cia-vf-Lftbs Xfer(QC): 6 Car Transfer (QC): 4 Does the Patient Walk: Yes Gait (FIM): 4 (met) Gait distance (FIM): 3=150 ft Distance: 150 Walk 10 feet (QC): 4 (met) Walk 10ft-Uneven Surface(QC): 4 (met) Walk 50ft with 2 Turns (QC): 4 (met) Walk 150 ft (QC): 4 (met) Gait Level of Assist: 4 Gait Assistive Device: Walker Donnie Does the Pt use WC or Scooter?: Yes Wheelchair (FIM): 6 (met) Wheelchair distance (FIM): 3=150 ft Distance: 250 Wheelchair Level of Assist: 6 Wheel 50 feet with 2 turns (QC: 6 (met) Stairs (FIM): 4 # of Steps: 12 1 Step (curb) (QC): 3 (met) 4 Steps (QC): 3 (met) 12 Steps (QC): 3 Stairs Level Of Assist: 4 Picking up an Object (QC): 2 OT Snf Goals Trading Specialist Goals Time Frame: Apr 26, 2017 Eating (FIM): 6 Eating (QC): 6 Oral Hygiene (QC): 6 Grooming(FIM): 6 Bathing(FIM): 5 Shower/Bathe Self (QC): 5 Upper Body Dressing(FIM): 5 Upper Body Dressing (QC): 5 Lower Body Dressing(FIM): 5 Lower Body Dressing (QC): 4 On/Off Footwear (QC): 5 Toileting(FIM): 6 Toileting Hygiene (QC): 6 Toilet/Commode Transfer(FIM): 6 Toilet/Commode Transfer (QC): 6 Shower Transfer(FIM): 5 Additional Goals: 1-Demonstrate ADL Tasks, 2-Verbalize Understanding, 3- ImproveStrength/Madalyn 1=Demonstrate adherence to instructed precautions during ADL tasks. 2=Patient will verbalize/demonstrate understanding of assistive devices/ modifications for ADL. 3=Patient will improve strength/tolerance for activity to enable patient to perform ADL's. RASHIDA ORTIZ OT Apr 18, 2017 15:17
== END 2017-04-18 13:15 | disposition home health service (06) | DRG 948 ==
PROVIDERS: ADMIT Family Medicine; ATTEND Physical Medicine & Rehabilitation
DX: R53.81 Other malaise (principal); I69.354 Hemiplegia and hemiparesis following cerebral infarction affecting left non-dominant side; I25.810 Atherosclerosis of coronary artery bypass graft(s) without angina pectoris; I25.10 Atherosclerotic heart disease of native coronary artery without angina pectoris; E87.1 Hypo-osmolality and hyponatremia; I31.3 Pericardial effusion (noninflammatory); I42.9 Cardiomyopathy, unspecified; I48.91 Unspecified atrial fibrillation; Z66 Do not resuscitate; R33.9 Retention of urine, unspecified; I12.9 Hypertensive chronic kidney disease with stage 1 through stage 4 chronic kidney disease, or unspecified chronic kidney disease; N18.9 Chronic kidney disease, unspecified; J44.9 Chronic obstructive pulmonary disease, unspecified; K21.9 Gastro-esophageal reflux disease without esophagitis; J30.2 Other seasonal allergic rhinitis; K59.09 Other constipation; E78.00 Pure hypercholesterolemia, unspecified; L30.1 Dyshidrosis [pompholyx]; B35.6 Tinea cruris; Z95.0 Presence of cardiac pacemaker; Z95.5 Presence of coronary angioplasty implant and graft; Z87.891 Personal history of nicotine dependence; Z79.01 Long term (current) use of anticoagulants; Z87.11 Personal history of peptic ulcer disease
CPT/HCPCS: 36415; 80048; 81000; 84484; 85025; 85610; 93005; 93306; 93308

== ENCOUNTER 2017-04-06 05:35 | Day surgery (SDC) | payer MEDICAID ==
[2017-04-06] VITALS (10 sets, daily range): BP systolic 117–150; BP diastolic 74–103
[2017-04-06] MEDS: NS IV 1000 ML 1,000 ML IV SCH ×2 (06:00→08:54)
[2017-04-06] MEDS ORDERED: HEParin 1000 UNIT/ML (10ML VIAL) FOR BOLUS ONE (06:00)
--- NOTE | 2017-04-06 07:12 | Cardiology Post Procedure Note ---
Post-Procedure Note Physician (s)/[facility] (s) Physician Amaya STOVALL MD Pre-Procedure Diagnosis Pre-Procedure Diagnosis: Chest pain, ST elevation on EKG Post-Procedure Note Procedure Start Date: Apr 06, 2017 Procedure Start Time: 05:50 Name of Procedure: Coronary Angiography, [facility] Findings/Procedure Note Severe proximal LAD disease, with occluded stent in the LAD with collaterals and no thrombus/stump/haziness - very likely chronic total occlusion. However, since it we are not certain, we tried with whisper wire and 2.0 semi-compliant balloon but were unable to cross the occlusion. While we were still working, our RN found a recent EKG with the same finds (Q waves and ST elevation in the anterior precordial leads) suggesting chronic EKG findings. No intervention was done. LV gram showed EF 10% with anterior-apical akinesis. LVEDP 3mmhg. Anesthesia Type: Conscious Sedation Estimated blood loss (mL): 10 Contrast Amount: 122 Post-Procedure Diagnosis Post-operative diagnosis: Chest pain, CAD, REIMBURSEMENT CONSULTANT mid LAD stent. Amaya STOVALL MD Apr 06, 2017 7:12 am
[2017-04-06] MEDS ORDERED: PATIENT MAY USE OWN MEDS, ALL PO SCH (07:15)
[2017-04-06] MEDS ORDERED: NITROGLYCERIN DRIP 25 MG/D5W 250 ML BTL IV ONE (07:16)
[2017-04-06] MEDS ORDERED: HEParin (CATH LAB) 2,000 UNIT/1,000 ML BAG IV ONE (07:16)
[2017-04-06] MEDS ORDERED: NS 1000 ML IV BAG IV ONE (07:16)
[2017-04-06] MEDS ORDERED: LIDOCAINE 1% INJ 20 ML (XYLOCAINE) VIAL INJ ONE (07:16)
--- NOTE | 2017-04-06 07:23 | History & Physicial-Cardiolgy ---
HPI-Cardiology Cardiology Consultation: Date of Consultation 04/06/17 Date of Admission Attending Physician Amaya Nugent MD Admitting Physician Valentin Roth MD Consulting Physician Amaya NUGENT MD HPI: Time Seen by Provider: 05:50 Chief Complaint: Chest pain This is a 61 year old male with extensive cardiac and vascular history including previous ME, stent, carotid stent, EF 10%, cardiomyopathy, ICD. He was in our inpatient rehab unit but developed chest pain 8/10. No significant relief with NTG sl. EKG showed ST elevations with Q waves in the anterior precordial leads. At that time, no previous EKG to compare. Review of Systems-Cardiology Review of Systems Constitutional: No As described under HPI, No no symptoms reported, No chills, No fever, No lightheadedness, No malaise, No tiredness, No weight loss, No weight gain, No other Eyes: No As described under HPI, No no symptoms reported, No blindness, No blurred vision, No contact lenses, No drainage, No decreased acuity, No foreign body sensation, No glasses, No inflammation, No pain, No photophobia, No previous injury, No shadows, No tunnel vision, No other, No vision change Ears/Nose/Throat: No As described under HPI, No no symptoms reported, No chronic hearing loss, No epistaxis, No ear discharge, No ear pain, No loose teeth, No mouth pain, No mouth swelling, No nasal drainage, No nose pain, No recent hearing loss, No throat pain, No throat swelling, No ulcerations, No other Respiratory: No no symptoms reported, No As described under HPI, No cough, No orthopnea, No shortness of breath, No SOB with excertion, No SOB at rest, No stridor, No wheezing, No other Cardiovascular: chest pain Gastrointestinal: No no symptoms reported, No As described under HPI, No abdomen distended, No abdominal pain, No blood streaked bowels, No constipation , No diarrhea, No difficulty swallowing, No nausea, No poor appetite, No poor fluid intake, No rectal bleeding, No vomiting, No other, No nausea/vomiting/ diarrhea, No stool coloration changes Genitourinary: No no symptoms reported, No As described under HPI, No burning, No dysuria, No discharge, No frequency, No flank pain, No hematuria, No incontinence, No pain, No urgency, No other, No urine frequency changes, No urine coloration changes Musculoskeletal: No no symptoms reported, No As describe under HPI, No back pain, No gout, No joint pain, No joint swelling, No muscle pain, No muscle stiffness, No neck pain, No other Skin: No no symptoms reported, No As described under HPI, No change in color, No change in hair/nails, No dryness, No lesions, No lumps, No rash, No other, No skin related problems, No ulcerations, No rash on exposed areas, No ulcerations on exposed areas Psychiatric/Neurological: No no symptoms reported, No As described under HPI, No anxiety, No depression, No emotional problems, No headache, No numbness, No pre-existing deficit, No seizure, No tingling, No tremors, No weakness, No other , No focal weakness, No syncope Hematologic: No no symptoms reported, No As described under HPI, No anemia, No blood clots, No easy bleeding, No easy bruising, No swollen glands, No other, No bleeding abnormalities WKJ-Qjhyyn-Ibghth Hx Patient Social History Type Used: Cigarettes Immunizations Up To Date Date of Influenza Vaccine: Apr 02, 2017 Past Medical History PMH As described under Assessment. Family Medical History Family History: Colon cancer 19 FATHER FH: multiple myeloma FH: multiple sclerosis Allergies and Home Medications Allergies Coded Allergies: morphine (Verified Allergy, Unknown, 04/04/17) baclofen (Verified Adverse Reaction, Severe, 07/21/16) Patient reports having severe reactions to Baclofen in the past, Home Medications Acetaminophen 500 Mg Tablet, 1,000 MG PO Q8H PRN for PAIN/FEVER, (Reported) Alprazolam 0.5 Mg Tablet, 0.5 MG PO HS PRN for SLEEP, (Reported) Atorvastatin Calcium 40 Mg Tablet, 40 MG PO HS, (Reported) Calcium Carbonate 300 Mg Tab.chew, 750 MG PO Q2H PRN for HEARTBURN, (Reported) Carvedilol 6.25 Mg Tablet, 6.25 MG PO BID, (Reported) Cetirizine HCl 10 Mg Tablet, 10 MG PO DAILY, (Reported) Clopidogrel Bisulfate 75 Mg Tablet, 75 MG PO DAILY, (Reported) Cyclobenzaprine HCl 10 Mg Tablet, 10 MG PO BID PRN for MUSCLE SPASMS, (Reported) Famotidine 20 Mg Tablet, 20 MG PO BID, (Reported) Ferrous Sulfate 325 Mg Tablet, 325 MG PO BID WITH MEALS, (Reported) Folic Acid 1 Mg Tablet, 1 MG PO DAILY, #30 Prescribed by: GRAEME GRESHAM on 08/09/16 1051 Gabapentin 300 Mg Capsule, 300 MG PO TID, (Reported) Lactobacillus Rhamnosus GG 1 Each Capsule, 1 CAP PO BID, (Reported) Mag Hydrox/Al Hydrox/Simeth 355 Ml Oral.susp, 30 ML PO Q4H PRN for INDIGESTION, (Reported) Magnesium Oxide 400 Mg Tablet, 800 MG PO DAILY, (Reported) Melatonin 3 Mg Tablet, 6 MG PO HS, (Reported) Norris 3 Polyunsat Fatty Acids 1,000 Mg Cap, 1,000 MG PO DAILY, (Reported) Polyethylene Glycol 3350 17 Gm Powd.pack, 17 GM PO DAILY PRN for CONSTIPATION, ( Reported) Polyethylene Glycol 3350 17 Gm Powd.pack, 17 GM PO DAILY, (Reported) Sacubitril/Valsartan 1 Each Tablet, 1 EACH PO BID, #60 Prescribed by: GRAEME GRESHAM on 08/08/16 1748 Tamsulosin HCl 0.4 Mg Cap, 0.4 MG PO DAILY, (Reported) Warfarin Sodium 5 Mg Tablet, 5 MG PO 1800, (Reported) Physical Exam-Cardiology Physical Exam Vital Signs/I&O Capillary Refill : Constitutional: No appears stated age, No AAO x 3, No apparent distress, No PERRL, No well-developed, No well-nourished, No other HEENT: No PERRL, No normal ENT inspection, No TMs normal, No pharynx normal, No scleral icterus (R), No scleral icterus (L), No pale conjunctivae (R), No pale conjunctivae (L), No photophobia, No TM abnormal (R), No TM abnormal (L), No pharyngeal erythema, No tonsillar exudate, No other, No discharge, No EOMI, No hearing is well preserved, No hard of hearing, No oral hygience is good, No ulceration, No xanthelasmas are seen Neck: No non-tender, No full range of motion, No supple, No normal inspection, No carotid bruit, No limited range of motion, No lymphadenopathy (R), No lymphadenopathy (L), No tender lateral, No tender midline, No thyromegaly, No other, No carotid pulses are 2 + bilaterally, No with good upstrokes Respiratory: No accessory muscle use, No respiratory distress, No chest tender , No chest expansion is symmetric, No chest is bilaterally symmetric, No lungs clear to percussion, No lungs clear to auscultation, No crackles, No rhonchi, No rales, No stridor, No wheezing, No pleural rub, No other Cardiovascular: No regular rate-rhythm, No irregularly irregular, No extra beats, No parasternal heave is noted, No JVD, No edema, No bradycardia, No tachycardia, No point of maximal impulse, No cardiac thrills are palpable, No S1 and S2, No gallop/S3, No gallop/S4, No diastolic murmur, No systolic murmur, No friction rub, No click, No other Gastrointestinal: No tender, No soft, No round, No distended, No pulsatile mass , No organomegaly, No guarding, No rebound, No tenderness, No hernia, No mass, No audible bowel sounds, No abnormal bowel sounds, No abdominal bruits, No spleenomegaly, No other Rectal: deferred Extremities: No normal range of motion, No non-tender, No normal inspection, No pedal edema, No calf tenderness, No normal capillary refill, No pelvis stable , No calf tenderness, No inflammation, No pedal edema, No slow capillary refill , No swelling, No other, No abrasion, No clubbing, No cyanosis, No ecchymosis, No laceration, No no lower extremity edema bilateral, No significant edema, No tenderness, No wound Neurologic/Psychiatric: No single needle operator II-XII nml as tested, No no motor/sensory deficits, No alert, No normal mood/affect, No oriented x 3, No abnormal cerebellar tests, No abnormal single needle operator II-XII, No abnormal gait, No aphasia, No EOM palsy, No facial droop, No motor weakness, No sensory deficit, No depressed affect, No disoriented x 3, No other, No grossly intact, No power is 5/5 both on sides Skin: No normal color, No warm/dry, No cyanosis, No cool, No diaphoresis, No damp, No ecchymosis, No jaundice, No mottled, No pallor, No rash, No tattoos/ piercings, No ulcerations, No rash on exposed areas, No ulcerations on exposed areas, No other ECG Impression ECG Initial ECG Rhythm: Normal Sinus Initial ECG Impression: Acute ME A/P-Cardiology Assessment/Admission Diagnosis ? STEMI, Cardiomyopathy, history of ME and stent. Plan Emergent coronary angiography done - chronic total occlusion of the mid LAD stent. while doing the procedure , the RN found a recent EKG from admission with same findings (Anterior precordial Q waves and ST elevations) - suggesting that these findings are not acute and the patient likely has akinetic anterior wall resulting in those ST changes. We will try to get old records from [facility]. Also, continue aspirin, plavix. Heparin was given. Serial Troponin. The patient does have severe proximal LAD stenosis. There is a good sized first diagonal artery; therefore, if required in the near future, a target of intervention could be proximal lad into the D1. Amaya NUGENT MD Apr 06, 2017 7:23 am
[2017-04-06] MEDS: CLOPIDOGREL 75 MG (PLAVIX) TABLET PO SCH (08:55)
[2017-04-06] MEDS: ASPIRIN E.C. 81 MG (ECOTRIN) TAB PO SCH (08:56)
[2017-04-06] MEDS ORDERED: ALFUZOSIN HCL 10 MG TAB (UROXATRAL) PO ONE (13:27)
[2017-04-06] MEDS: ALFUZOSIN HCL 10 MG TAB (UROXATRAL) PO SCH (13:38)
[2017-04-06] MEDS ORDERED: CARVEDILOL 6.25 MG (COREG) TAB ONE (16:57)
[2017-04-06] MEDS: CARVEDILOL 6.25 MG (COREG) TAB PO SCH (17:06)
[2017-04-06] MEDS ORDERED: warFARin 5 MG (COUMADIN) TAB PO SCH (18:00)
[2017-04-06] MEDS ORDERED: ACET/BUTAL/CAFF (FIORICET) TAB PO PRN (23:00)
[2017-04-06] MEDS ORDERED: ACETAMINOPHEN 325 MG TABLET/CAPLET (TYLENOL) PO PRN (23:00)
[2017-04-07] VITALS: BP 131/72
[2017-04-07 04:00] VITALS: BP 120/75
[2017-04-07 04:18] LABS: MEAN PLATELET VOLUME 10.5 FL (7.4-10.4); RED BLOOD COUNT 4.45 10^6/uL (4.35-5.85); RED CELL DISTRIBUTION WIDTH 16.1 % (10.0-14.5)
[2017-04-07 04:40] LABS: ANION GAP 10 MMOL/L (5-14); BLOOD UREA NITROGEN 13 MG/DL (7-18); BUN/CREATININE RATIO 11; CALCIUM 9.1 MG/DL (8.5-10.1); CARBON DIOXIDE 20 MMOL/L (21-32); CHLORIDE 102 MMOL/L (98-107); CREATININE SERUM 1.15 MG/DL (0.60-1.30); GFR ESTIMATED > 60; GLUCOSE 91 MG/DL (70-105); SODIUM 132 MMOL/L (135-145)
[2017-04-07] MEDS: ALFUZOSIN HCL 10 MG TAB (UROXATRAL) PO SCH (08:34)
[2017-04-07] MEDS: CARVEDILOL 6.25 MG (COREG) TAB PO SCH (08:34)
[2017-04-07 08:35] VITALS: BP 127/94
[2017-04-07] MEDS: CLOPIDOGREL 75 MG (PLAVIX) TABLET PO SCH (08:35)
[2017-04-07] MEDS: ASPIRIN E.C. 81 MG (ECOTRIN) TAB PO SCH (08:35)
[2017-04-07 12:50] VITALS: BP 118/72
[2017-04-07 13:15] VITALS: BP 118/72
--- NOTE | 2017-04-07 13:56 | Cardiology Discharge Summary ---
Diagnosis/Chief Complaint Date of Admission Apr 06, 2017 at 07:15 Date of Discharge 04/07/2017 Admission Diagnosis STEMI Final/Discharge Diagnosis Chest pain, angina, CAD Chief Complaint/HPI Chief Complaint/HPI This is a 61 year old male with extensive cardiac and vascular history including previous MA, stent, carotid stent, EF 10%, cardiomyopathy, ICD. He was in our inpatient rehab unit but developed chest pain 8/10. No significant relief with NTG sl. EKG showed ST elevations with Q waves in the anterior precordial leads. At that time, no previous EKG to compare. Discharge Summary Procedures Coronary angiography which showed occluded mid LAD stent. It was not clear whether this is new or old. Angiographic features suggested chronic total occlusion. Attempted PCI was unsuccessful. Discharge Physical Examination Stable cardiovascular examinations. Groin site normal. Hospital Course No further chest pain, serial troponins negative. EKG very similar with sinus rhythm and persistent ST elevations with Q waves. I was able to get an old EKG from June 2016 which showed sinus rhythm and Q waves in the anterior precordial leads with persistent ST elevations. Labs Normal Discussion & Recommendations Discussion Acute coronary syndrome was ruled out by negative serial troponins. EKG findings are old. Patient should continue aspirin and Plavix and statin. Continue inpatient rehabilitation. If the patient develops recurrent chest pain we may consider performing a PCI with stent from the proximal LAD into the first diagonal artery. Follow up appt.: Transfer to inpatient rehabilitation. Follow up as an outpatient with director of design in [place]. Dicharge Diet: Cardiac Diet Activity as Tolerated: Yes Home Medications Reviewed patient Home Medication Reconciliation Form Discharge Home Medications: Reviewed and agree with Discharge Medication list on patient's Discharge Instruction sheet Condition at discharge Stable Instructions to patient/family Inpatient rehabilitation. Diagnosis/Problems Diagnosis/Problems (1) Unstable angina Status: Resolved Clinical Quality Measures DVT/VTE Risk/Contraindication: Risk Factor Score Per Nursin RFS Level Per Nursing on Admit: 4+=Very High Amaya STOVALL MD Apr 07, 2017 13:56
[2017-04-07] MEDS ORDERED: TAMS0.4C2 PO (14:46)
[2017-04-07] MEDS ORDERED: FINA5TAB6 PO (14:46)
[2017-04-07] MEDS ORDERED: ONDN4T PO (14:46)
[2017-04-07] MEDS ORDERED: WARF3TAB6 PO (14:46)
[2017-04-07] MEDS ORDERED: BUTA1TAB9 PO (14:46)
[2017-04-07] MEDS ORDERED: VALS40TA8 PO (14:46)
--- NOTE | 2017-04-16 08:38 | CARDIAC CATHETERIZATION ---
DATE OF SERVICE: 04/06/2017 CORONARY ANGIOGRAPHY PERFORMING PHYSICIAN: Dr. Eboni Nugent. INDICATION: Possible ST elevation ND. PREOPERATIVE DIAGNOSIS: Possible ST elevation myocardial infarction. 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 HISTORY: The patient is a 61-year-old gentleman with extensive cardiac and vascular history. He has history of ND, stents, carotid artery disease, carotid artery stent, severe systolic cardiomyopathy with a known EF of below 20%. He also has a previous history of defibrillator implantation. He was admitted to a hospital in [place] for possible dehydration and significant weakness. He was transferred to our hospital for inpatient rehabilitation. I was called ring attacher due to complaint of 8/10 chest pain. EKG that was done showed sinus rhythm with ST elevation in the anterior precordial leads with Q waves. At that point in time, no comparison EKG was available and the patient's chest pain was not being relieved with nitroglycerin. Therefore, bolus aspirin, bolus Plavix was given and the analytical lab analyst was called emergently. PROCEDURE PERFORMED: 1. Coronary angiography. 2. Left heart catheterization. 3. Unsuccessful PCI of the total occlusion in the mid LAD. SPECIMENS: None. COMPLICATIONS: None. ANTICOAGULATION: IV heparin. BLOOD LOSS: 20 mL. CONTRAST DOSE: 122 mL of Omnipaque. FLUOROSCOPY TIME: 11.4 minutes. FLUOROSCOPY DOSE: 432 mGy. PROCEDURE DETAILS: The patient was brought to the analytical lab analyst after an emergent consent was taken for possible acute STEMI. He was draped and prepped in the usual sterile fashion. Access was gained in the right common femoral artery with a 6-[place] sheath. Coronary angiography and left heart catheterization was performed with JR4, JL4 catheters. FINDINGS: 1. Left main: Patent. 2. Left circumflex artery: Mild proximal disease (10% to 20% stenosis). Mild disease in the mid to distal left circumflex artery, which is also 20% stenosis. 3. LAD: Severe stenosis of the proximal LAD. There is a large first diagonal, which supplies the lateral wall. There is a large first septal perforated, which is also patent. However, there is a stent which is occluded. There is faint distal reconstitution from collaterals. There is no haziness, thrombus, stump that is noted, which suggested this is a chronic total occlusion. 4. RCA: No significant disease is noted in the RCA. 5. Left heart catheterization: LV pressure 76/-1 mmHg, LVEDP 3 mmHg, aortic pressure 106/55 mmHg. LV gram showed an EF of 15% with severe anterior apical and inferior apical akinesis. Ejection fraction was 15%. No gradient was noted across the aortic valve. RECOMMEDATIONS: PCI to the mid LAD is recommended. PCI DETAILS: We changed to an EBU 3.5 Guide catheter, Whisper guidewire and IV heparin for anticoagulation. We tried to cross with the guidewire and a 2.0 x 15 semicompliant Emerge balloon. However, we were not able to cross the BUTADIENE CONVERTER UTILITY OPERATOR after numerous attempts. At this point in time, our analytical lab analyst nurse found a recent EKG, which showed very similar EKG findings, i.e. sinus rhythm, Q wave and anterior ST elevations in the anterior precordial leads. Since it is likely that this is a chronic finding and this is a chronic occlusion, we decided to stop at this point in time. The patient was not having any further chest discomfort. The ST elevations are likely due to anterior akinesis. Therefore, the procedure was stopped and the patient transferred to the ICU. IMPRESSION/CONCLUSION: 1. We were called in for possible ST elevation myocardial infarction, total occlusion of mid LAD stent, unsuccessful percutaneous coronary intervention. 2. However, during the procedure, our analytical lab analyst RN was able to find a recent EKG with similar EKG findings, i.e. sinus rhythm, Q wave and ST elevations in the anterior precordial leads. Very poor EF. This is a known finding. Therefore, the ST elevations are likely secondary to anterior akinesis. It is likely that this is a chronic total occlusion of the mid LAD stent. 3. We will attempt to get old records from [facility], which will include angiogram, which was performed in June 2016 as well as old EKGs and echocardiogram. If this is an old finding, i.e. occlusion of the stent in the mid LAD, there may be utility of performing the stent of the proximal LAD into the first diagonal artery, hence the first diagonal artery supplies the significant amount of the lateral wall. 4. The patient will be admitted overnight in the ICU and be given aspirin, Plavix and statin. Serial troponins will be done. Job ID: [id number] DocumentID: [id number] Dictated Date: 04/06/2017 17:29:57 Research Electrician Date: 04/07/2017 02:12:58 Dictated By: TRIP NUGENT MD <Dictated by TRIP NUGENT MD> <Electronically signed by TRIP NUGENT MD> 04/07/17 1404
== END 2017-04-07 13:15 ==
LOC: CATH 05:35 → ICU 05:35 → UNDOADMOB 07:15 → ICU 07:15 → UNDODISOB 04-07 13:15 → CATH 04-07 13:15
PROVIDERS: ATTEND Internal Medicine Interventional Cardiology
DX: I25.110 Atherosclerotic heart disease of native coronary artery with unstable angina pectoris (principal); I25.2 Old myocardial infarction; I25.82 Chronic total occlusion of coronary artery; I42.9 Cardiomyopathy, unspecified; Z95.5 Presence of coronary angioplasty implant and graft; Z72.0 Tobacco use; Z79.899 Other long term (current) drug therapy; Z79.01 Long term (current) use of anticoagulants; Z95.810 Presence of automatic (implantable) cardiac defibrillator
CPT/HCPCS: 36415; 80048; 84484; 85027; 93005; 93458